=== PATIENT | male | born 1965 | race Caucasian/White ===

== ENCOUNTER 2019-03-09 14:07 | Outpatient (REF) | payer MEDICARE, SELFPAY ==
[2019-03-09 21:44] LABS: HCT 41.7 % (40.0-50.0); HGB 13.7 g/dL (13.5-17.5); Mean Corp. HGB Concentration 32.9 g/dL (32.0-36.0); Mean Corpuscular Volume 88.3 fL (80-95); Mean Platelet Volume 10.1 fL (8.0-11.0); Platelet Count 224 x1000/uL (130-400); RBC 4.72 m/cumm (4.50-6.00); RBC Distribution Width 13.6 % (11.8-14.1); White Blood Cell Count 6.13 k/cumm (4.4-10.8)
[2019-03-09 22:10] LABS: ALT 55 U/L (12-78); AST 31 U/L (15-37); Albumin 3.6 g/dL (3.4-5.0); Alkaline Phosphatase 119 U/L (46-116); Anion Gap 8.8 mmol/L (3-11); BUN 8 mg/dL (7-18); Bilirubin, Total 0.3 mg/dL (0.2-1.0); CO2 27.2 mmol/L (21.0-32.0); CREATININE 0.77 mg/dL (0.70-1.30); Calcium 8.6 mg/dL (8.5-10.1); Calculated LDL 128 mg/dL; Chloride 104 mmol/L (98-107); Cholesterol 227 mg/dL (50-200); Glucose 88 mg/dL (70-100); HDL Cholesterol 40 mg/dL (40-60); Magnesium 1.9 mg/dL (1.8-2.4); Potassium 3.9 mmol/L (3.5-5.1); Sodium 140 mmol/L (136-145); TSH (W/Ref FT4) 1.25 uIU/mL (0.358-3.74); Total Protein 7.2 g/dL (6.4-8.2); Triglyceride 298 mg/dL (30-150)
== END 2019-03-09 14:27 ==
LOC: NCHCN 14:07
PROVIDERS: PCP Specialist/Technologist Athletic Trainer; Visit Provider Specialist/Technologist Athletic Trainer
DX: R73.9 Hyperglycemia, unspecified (principal); E78.5 Hyperlipidemia, unspecified; I42.9 Cardiomyopathy, unspecified
CPT/HCPCS: 80053; 80061; 83721; 85027; 83735; 84443

== ENCOUNTER 2019-04-17 15:49 | Inpatient (IN) | payer MEDICARE, SELFPAY ==
[2019-04-17] VITALS (23 sets, daily range): BP systolic 98–127; BP diastolic 43–85; PULSE 66–81; RESP 13–27; TEMP 36.9–38.1; O2SAT 89–96
--- NOTE | 2019-04-17 16:29 | DI.CT_ITS ---
SYMPTOM/DIAGNOSIS: FEVER, EPIGASTRIC PAIN, RAD TO CHEST CT ANGIOGRAPHY OF THE CHEST, ABDOMEN AND PELVIS: CT angiography was performed with multi slice acquisition and multi planar and 3D reconstruction. The aorta and pulmonary arteries are well opacified with IV contrast. There is no evidence of aortic dissection or pulmonary emboli. The heart size is normal. There is minimal atherosclerotic change in the distal abdominal aorta. The celiac, SMA and SHRUTHI are patent. There is bilateral gynecomastia. No infiltrate, pleural or pericardial effusion is seen. Evaluation of the bowel is limited without oral contrast. There is stranding around the stomach and a fluid collection seen at the inferior body of the stomach along the greater curvature with some surrounding inflammation. The findings could represent a mass, fluid collection or abscess related to a gastric ulcer. There is a metallic density seen in the mid small bowel. The small bowel is unremarkable. There is no free air or free fluid. The bladder and prostate are unremarkable. IMPRESSION: Mass vs fluid collection of the inferior stomach. Metallic foreign body is noted in the small bowel and the findings could be secondary to perforation. Endoscopy is recommended.
--- NOTE | 2019-04-17 16:32 | ED.GENADUL_ITS ---
Discharge Plan Disposition Patient Disposition: [facility] INPATIENT Condition: Stable Discharge Details Chief Complaint: Abd Prob Clinical Impression: Abdominal fluid collection, Fever Admit Date/Time: 04/17/19 18:58 Admit Provider: Wilda Wright Attending Provider: Wilda Wright Primary Care Provider: Stanford Chu ED Provider: Elia Flower Discharge Data Discharge Date/Time-TO BE ENTERED AT DEPARTURE: 04/17/19 19:51 Discharge Physician: Elia Flower Medical Decision Making 1555 -- 54-year-old male with history of depression, COPD who is a poor historian presents with lower abdominal pain with radiation to his chest since yesterday. Temp 100.5 on arrival. He appears nontoxic. His abdomen is obese and distended. He complains of pain in his lower abdomen but is significantly tender in his epigastrium and left upper quadrant and minimally tender in his suprapubic region. No significant right lower quadrant tenderness. He also admits to constipation x2 days. Differential diagnosis free air, cholelithiasis, cholecystitis, appendicitis, AAA rupture, SBO. Will place an IV lactate, blood cultures, routine labs, urinalysis, CT chest abdomen, pelvis. EKG notes a rate of 79, sinus, TWI in aVL, no acute ST ischemic changes. Labs reviewed and note a white blood cell count 11.36. Lactate 1.6. Troponin negative. CTA chest/abd/pelvis notes 2 fluid collections around the stomach, p ossibly consistent with abscesses, but no dissection or aneurysm. 1820 -- Case reviewed with Dr. Wright -will admit patient overnight for IV antibiotics and observation. Would like Zosyn, PPI, n.p.o., fluids and pain control. 1830 -- Patient agreeable with plan for admission. He states he is pain-free at this time. CT abdomen and pelvis with portal flow resulted later which noted a possible 2.6 cm metallic density in the loop of small bowel which may represent an ingested foreign body. Patient already transported to the floor and unable to inquire about this. Dr. Wright was informed of this result. Medical Records Medical records reviewed: Yes I reviewed the patient's medical records. Imaging Data Radiologic Study: Radiologist's impression: Addendum created by Killian Contreras MD on 04/17/2019 6:45:17 PM EDT THIS REPORT CONTAINS FINDINGS THAT MAY BE CRITICAL TO PATIENT CARE. The findings were verbally communicated via telephone conference with elia flower at 6:45 PM EDT on 04/17/2019. The findings were acknowledged and understood. We discussed that the fluid collections adjacent to the stomach may represent abscess Addendum created by Killian Contreras MD on 04/17/2019 6:43:03 PM EDT Addendum: There is a second smaller fluid collection adjacent to the stomach. Please refer to the other report Initial report created on 04/17/2019 6:41:44 PM EDT EXAM: CT Angiography Chest With Contrast EXAM DATE/TIME: 04/17/2019 4:45 PM CLINICAL HISTORY: 54 years old, male; Other: Epigastric radiate to chest; Other: Epigastric pain radiate to chest; Abdominal pain; Patient HX: Fever, epigastric pain, rad to chest; Additional info: R/O aaa/free air/appy/shruthi/sbo TECHNIQUE: Imaging protocol: Computed tomographic angiography images of the chest with intravenous contrast using CT angiography protocol. 3D rendering: MIP reconstructed images were created and reviewed. COMPARISON: CR CHEST 2 VIEWS PA,LAT 06/12/2016 11:29 PM FINDINGS: Pulmonary arteries: No definite pulmonary embolism is seen to the level of the lobar pulmonary arterial branches bilaterally. The heterogeneous or decreased density of some small segmental and subsegmental pulmonary arterial branches may reflect inadequate enhancement, beam hardening, or motion, flow, or partial volume averaging artifact. One or more small segmental or subsegmental pulmonary emboli cannot be excluded. . Aorta: No aneurysm of the aorta. No dissection of the aorta. Lungs: Unremarkable. No consolidation. No masses. Pleural space: Unremarkable. No pneumothorax. No pleural effusion. Heart: Unremarkable. No cardiomegaly. No pericardial effusion. Lymph nodes: Unremarkable. No enlarged lymph nodes. Bones/joints: Mild compression fractures of unknown age in the thoracic spine Soft tissues: Unremarkable. IMPRESSION: 1. No definite pulmonary embolism is seen to the level of the lobar pulmonary arterial branches bilaterally. The heterogeneous or decreased density of some small segmental and subsegmental pulmonary arterial branches may reflect inadequate enhancement, beam hardening, or motion, flow, or partial volume averaging artifact. One or more small segmental or subsegmental pulmonary emboli cannot be excluded. . 2. No aneurysm of the aorta. 3. No dissection of the aorta. CT Angiography Abdomen and Pelvis With Contrast EXAM DATE/TIME: 04/17/2019 4:45 PM CLINICAL HISTORY: 54 years old, male; Other: Epigastric radiate to chest; Other: Epigastric pain radiate to chest; Abdominal pain; Patient HX: Fever, epigastric pain, rad to chest; Additional info: R/O aaa/free air/appy/shruthi/sbo TECHNIQUE: Imaging protocol: Computed tomographic angiography images of the abdomen and pelvis with intravenous contrast material. 3D rendering: MIP reconstructed images were created and reviewed. COMPARISON: CR CHEST 2 VIEWS PA,LAT 06/12/2016 11:29 PM FINDINGS: VASCULATURE: Aorta: No aneurysm of the aorta. No dissection of the aorta. Celiac trunk and mesenteric arteries: No occlusion or significant stenosis. Renal arteries: No occlusion or significant stenosis. Right iliac arteries: No occlusion or significant stenosis. Left iliac arteries: No occlusion or significant stenosis. ABDOMEN: Liver: No mass. Gallbladder and bile ducts: Unremarkable. No calcified stones. No ductal dilation. Pancreas: Unremarkable. No mass. No ductal dilation. Spleen: Unremarkable. No splenomegaly. Adrenals: Unremarkable. No mass. Kidneys and ureters: Unremarkable. No solid mass. No hydronephrosis. Stomach and bowel: 4.9 x 3 cm low attenuation mass along the inferior aspect of the stomach (10:39.). There are inflammatory changes adjacent to the stomach. Appendix: Normal appendix PELVIS: Bladder: Unremarkable. No mass. Reproductive: Unremarkable as visualized. ABDOMEN and PELVIS: Intraperitoneal space: Unremarkable. No free air. No significant fluid collection. Bones/joints: No acute fracture. No dislocation. Soft tissues: Unremarkable. Lymph nodes: Unremarkable. No enlarged lymph nodes. Other findings: . . IMPRESSION: 1. No aneurysm of the aorta. 2. No dissection of the aorta. 3. 4.9 x 3 cm low attenuation mass along the inferior aspect of the stomach (10:39.). There are inflammatory changes adjacent to the stomach. Differential includes abscess, hematoma, seroma, cyst. CT Abdomen and Pelvis With Contrast EXAM DATE/TIME: 04/17/2019 4:46 PM CLINICAL HISTORY: 54 years old, male; Abdominal pain; Patient HX: Epigastric pain; Additional info: R/O free air, appy/shruthi/sbo TECHNIQUE: Imaging protocol: Computed tomography images of the abdomen and pelvis with intravenous contrast. COMPARISON: No relevant prior studies available. FINDINGS: Liver: hepatomegaly 23 cm No mass. Gallbladder and bile ducts: Normal. No calcified stones. No ductal dilation. Pancreas: Normal. No ductal dilation. Spleen: Normal. No splenomegaly. Adrenals: Normal. No mass. Kidneys and ureters: Normal. No hydronephrosis. Stomach and bowel: There are 2 low attenuation masses adjacent to the stomach 4.4 x 3.6 cm and 4 x 1.8 cm. There may be a bubble of air in the smaller fluid collection (12:30) There are adjacent inflammatory changes. This could represent abscess, possibly from perforated gastric ulcer.. Differential includes hematoma and seroma 2.6 cm Metallic density in a loop of the small bowel. Unknown etiology. (12:57-63). It may represent ingested foreign body Appendix: No evidence of appendicitis. Intraperitoneal space: Normal. No free air. No significant fluid collection. Vasculature: Normal. No abdominal aortic aneurysm. Lymph nodes: Normal. No enlarged lymph nodes. Bladder: Unremarkable as visualized. Reproductive: Unremarkable as visualized. Bones/joints: There may be a chronic compression fractures of the thoracic spine No acute fracture. No dislocation. Soft tissues: Unremarkable THIS REPORT CONTAINS FINDINGS THAT MAY BE CRITICAL TO PATIENT CARE. The findings were verbally communicated via telephone conference with elia flower at 6:44 PM EDT on 04/17/2019. The findings were acknowledged and understood. IMPRESSION: There are 2 low attenuation masses adjacent to the stomach 4.4 x 3.6 cm and 4 x 1.8 cm. There may be a bubble of air in the smaller fluid collection (12:30) There are adjacent inflammatory changes. This could represent abscess, possibly from perforated gastric ulcer. Differential includes hematoma and seroma 2.6 cm Metallic density in a loop of the small bowel. Unknown etiology. (12:57-63). It may represent ingested foreign body Lab Data Lab results reviewed: Yes I reviewed the patient's lab results. 04/17/19 17:03 Blood Blood Culture - Pending 04/17/19 16:55 Blood Blood Culture - Pending Laboratory Tests Range/Units 04/17/19 04/17/19 04/17/19 16:40 16:40 16:55 WBC (4.4-10.8) k/cumm 11.36 H RBC (4.50-6.00) m/cumm 4.60 Hgb (13.5-17.5) g/dL 13.5 Hct (40.0-50.0) % 40.6 MCV (80-95) fL 88.3 MCH (27.0-33.0) pg 29.3 MCHC (32.0-36.0) g/dL 33.3 RDW (11.8-14.1) % 13.8 Plt Count (130-400) x1000/uL 211 MPV (8.0-11.0) fL 9.2 Immature Gran % 0.2 Neutrophils % 80.4 Lymphocytes % 11.5 Monocytes % 7.4 Eosinophils % 0.4 Basophils % 0.1 Absolute Neutrophils (1.2-6.7) k/cumm 9.13 H Absolute Lymphocytes (1.2-3.4) k/cumm 1.31 Absolute Monocytes (0.11-0.7) k/cumm 0.84 H Absolute Eosinophils (0.0-0.7) k/cumm 0.05 Absolute Basophils (0.0-0.2) k/cumm 0.01 Sodium (136-145) mmol/L 137 Potassium (3.5-5.1) mmol/L 3.5 Chloride (98-107) mmol/L 101 Carbon Dioxide (21.0-32.0) mmol/L 26.1 Anion Gap (3-11) mmol/L 9.9 BUN (7-18) mg/dL 11 Creatinine (0.70-1.30) mg/dL 0.97 Estimated GFR/1.73 m2 (mL/min/1.73m2) >= 60.00 Glucose (70-100) mg/dL 155 H Lactate (0.6-1.4) mmol/L 1.6 H Calcium (8.5-10.1) mg/dL 8.7 Magnesium (1.8-2.4) mg/dL 1.7 L Total Bilirubin (0.2-1.0) mg/dL 0.7 AST (15-37) U/L 18 ALT (16-63) U/L 41 Alkaline Phosphatase (46-116) U/L 104 Troponin I (0.00-0.06) ng/mL < 0.05 Total Protein (6.4-8.2) g/dL 7.5 Albumin (3.4-5.0) g/dL 3.2 L Lipase (73-393) U/L 76 ECG Data Attestation: I personally reviewed and interpreted this ECG (s) as follows: Interpretation: Rate of 79, sinus, T wave inversion in aVL but no acute ST elevation or depression. IL 144. QTc 463. QRS 96. HPI General Mode of arrival: ambulatory . Date/Time Provider Initiated Documentation: 04/17/19 15:59 . Limitations to Documentation: no limitations . Information obtained by: patient . HPI Narrative: Patient is a 54-year-old male with a history of depression and COPD presents with intermittent sharp lower abdominal pain since yesterday. States the pain is intermittently radiating to his chest. States the pain is currently 4/10. He states the pain is better when laying on his right side and worse when laying flat. He does admit to intermittent chills but was unaware that he had a fever. He has not taken any medication for his symptoms. He states his last bowel movement was 2 days ago and denies any bleeding. He denies any shortness of breath, urinary symptoms, nausea, vomiting. Related Data Home Medications Medication Instructions Recorded Confirmed fluoxetine 60 mg PO DAILY 04/26/14 04/17/19 risperidone 2 mg PO DAILY 04/26/14 04/17/19 tramadol 50 mg PO TID PRN PRN #14 tablet 03/05/16 04/17/19 melatonin 5 mg PO HS 04/17/19 04/17/19 metoprolol tartrate 25 mg PO DAILY 04/17/19 04/17/19 mirtazapine 7.5 mg PO DAILY 04/17/19 04/17/19 simvastatin 10 mg PO DAILY 04/17/19 04/17/19 Previous Rx's Medication Instructions Recorded tramadol 50 mg PO TID PRN PRN #14 tablet 03/05/16 Allergies Allergy/AdvReac Type Severity Reaction Status Date / Time No Known Allergies Allergy Unverified 04/17/19 15:47 General Stated Complaint: Abd Prob SHAY: 3 Review of Systems Review of Systems All systems reviewed & are unremarkable except as noted in HPI and below Constitutional Reports as per HPI, Denies chills and Denies fever(s) Eyes Denies blurry vision ENT Denies dizziness, Denies sore throat and Denies throat swelling Cardiovascular Denies chest pain and Denies dyspnea Respiratory Denies cough and Denies dyspnea Gastrointestinal Reports abdominal pain, Reports constipation, Denies diarrhea and Denies vomiting Genitourinary Denies hematuria and Denies dysuria Musculoskeletal Denies back pain and Denies numbness Integumentary/Breasts Denies lesions and Denies rash Neurologic Denies dizziness, Denies focal weakness and Denies numbness Allergic/Immunologic Denies throat swelling [facility] Medical History COPD (chronic obstructive pulmonary disease) (Chronic) Depression (Chronic) Surgical History Colonoscopy - MAC (12/23/16) No significant past surgical history (Acute) Social History Smoking/Tobacco Use Status: Current every day Alcohol Intake: never Drug use: Never Do you feel safe at home: Yes Do you feel safe in your relationship?: Yes Exam Const General: cooperative, healthy appearing and no acute distress HENMT Head: normal to inspection Face and sinus: normal facial exam Eyes General: appearance normal, both eyes and all related structures EOM: EOM intact bilaterally Neck Neck: normal visual inspection and No submandibular swelling Lymphatic: no lymphadenopathy noted Chest Chest: normal inspection of the chest and no tenderness Resp Effort & Inspection: normal respiratory effort and able to speak in complete sentences Auscultation: clear to auscultation bilaterally Cardio Rate: regular rate Rhythm: regular rhythm GI Inspection: normal to inspection Palpation: soft, not firm, not rigid and tender in the epigastrum (significantly tender) and in the LUQ (Significantly tender) Auscultation: normal bowel sounds Male General Exam: Yes normal external exam Back/Spine/Pelvis Pelvis: no pain with anterior-posterior compression Skin General skin exam: no rashes or lesions noted Neuro General: alert, awake and oriented x3 Cognition: normal cognition Speech: speech normal Motor: muscle tone normal throughout Sensory Exam: no sensory deficits noted Extrem General: normal to inspection, full ROM, normal capillary refill, no calf tenderness bilaterally and no edema Psych Appearance: grossly normal Mental Status: mental status grossly normal Speech and Movement: speech and movement normal Affect: normal affect Course Vital Signs Temperature 100.5 F H 04/17/19 15:38 Pulse 81 04/17/19 15:38 Respiratory Rate 18 04/17/19 15:38 Blood Pressure 122/85 04/17/19 15:38 Pulse Oximetry 96 04/17/19 15:38 Temperature 100.5 F H 04/17/19 15:38 Temperature Source Skin 04/17/19 15:38 Pulse 81 04/17/19 15:38 Respiratory Rate 18 04/17/19 15:38 Respiratory Effort 04/17/19 15:48 Blood Pressure 122/85 04/17/19 15:38 Pulse Oximetry 96 04/17/19 15:38 Oxygen Delivery Method Room Air 04/17/19 15:38 Oxygen Flow Rate 0 04/17/19 15:38 Pain Level 3 04/17/19 15:38 Comment 04/17/19 15:38
[2019-04-17 16:47] LABS: Abs Immature Grans 0.02 k/cumm (0.0-0.09); Absolute Basophil Count 0.01 k/cumm (0.0-0.2); Absolute Eosinophil Count 0.05 k/cumm (0.0-0.7); Absolute Lymphocyte Count 1.31 k/cumm (1.2-3.4); Absolute Monocyte Count 0.84 k/cumm (0.11-0.7); Absolute Neutrophil Count 9.13 k/cumm (1.2-6.7); Basophils % 0.1; Eosinophils % 0.4; HCT 40.6 % (40.0-50.0); HGB 13.5 g/dL (13.5-17.5); Immature Grans % 0.2; Lymphocytes % 11.5; Mean Corp. HGB Concentration 33.3 g/dL (32.0-36.0); Mean Corpuscular Hemoglobin 29.3 pg (27.0-33.0); Mean Corpuscular Volume 88.3 fL (80-95); Mean Platelet Volume 9.2 fL (8.0-11.0); Monocytes % 7.4; Neutrophils % 80.4; Platelet Count 211 x1000/uL (130-400); RBC Distribution Width 13.8 % (11.8-14.1); White Blood Cell Count 11.36 k/cumm (4.4-10.8)
[2019-04-17] MEDS: Acetaminophen 500 MG TAB 1000 MG PO (16:56)
[2019-04-17] MEDS: Normal Saline 1,000 ML 1000 ML IV (16:56)
[2019-04-17 17:01] LABS: ALT 41 U/L (16-63); AST 18 U/L (15-37); Albumin 3.2 g/dL (3.4-5.0); Alkaline Phosphatase 104 U/L (46-116); Anion Gap 9.9 mmol/L (3-11); BUN 11 mg/dL (7-18); Bilirubin, Total 0.7 mg/dL (0.2-1.0); CO2 26.1 mmol/L (21.0-32.0); CREATININE 0.97 mg/dL (0.70-1.30); Calcium 8.7 mg/dL (8.5-10.1); Chloride 101 mmol/L (98-107); Glucose 155 mg/dL (70-100); Lipase 76 U/L (73-393); Magnesium 1.7 mg/dL (1.8-2.4); Potassium 3.5 mmol/L (3.5-5.1); Sodium 137 mmol/L (136-145); Total Protein 7.5 g/dL (6.4-8.2)
[2019-04-17 17:02] LABS: Troponin I < 0.05 ng/mL (0.00-0.06)
[2019-04-17 17:17] LABS: Lactate 1.6 mmol/L (0.6-1.4)
--- NOTE | 2019-04-17 17:40 | DI.CT_ITS ---
SYMPTOM/DIAGNOSIS: R/O FREE AIR, APPY/BRENDAN/SBO CT ABDOMEN AND PELVIS: Comparison is made with CTA chest, abdomen and pelvis performed earlier the same day. No oral contrast was administered. There is again noted to be inflammation around the stomach and a fluid collection seen at the inferior aspect of the stomach. A second smaller fluid collection is noted. There is an apparent wall thickening. The findings could be secondary to a mass with perforation or possibly gastric ulcer. A linear metallic foreign body is seen in the mid to distal small bowel. There is no free air or free fluid. There is no small bowel or colon dilatation. The kidneys, spleen, adrenals and pancreas are unremarkable. The liver is mildly enlarged and shows fatty infiltration. The gallbladder has a normal appearance. There is no biliary dilatation. No adenopathy is seen. There are small bilateral fatty containing inguinal hernias. IMPRESSION: Wall thickening of the stomach with fluid collections and inflammation in the surrounding fat. A foreign body is noted in the small bowel. The findings could be secondary to perforation by the foreign body. A mass with perforation could not be excluded. Endoscopy is recommended for further evaluation.
[2019-04-17] MEDS: Omnipaque 350 MG/ML 100 ML BTL IJ (17:58)
--- NOTE | 2019-04-17 18:41 | DI.VRAD_ITS ---
Addendum created by Killian Contreras MD on 04/17/2019 6:45:17 PM EDT THIS REPORT CONTAINS FINDINGS THAT MAY BE CRITICAL TO PATIENT CARE. The findings were verbally communicated via telephone conference with elia rascon at 6:45 PM EDT on 04/17/2019. The findings were acknowledged and understood. We discussed that the fluid collections adjacent to the stomach may represent abscess Addendum created by Killian Contreras MD on 04/17/2019 6:43:03 PM EDT Addendum: There is a second smaller fluid collection adjacent to the stomach. Please refer to the other report Initial report created on 04/17/2019 6:41:44 PM EDT EXAM: CT Angiography Chest With Contrast EXAM DATE/TIME: 04/17/2019 4:45 PM CLINICAL HISTORY: 54 years old, male; Other: Epigastric radiate to chest; Other: Epigastric pain radiate to chest; Abdominal pain; Patient HX: Fever, epigastric pain, rad to chest; Additional info: R/O aaa/free air/appy/shruthi/sbo TECHNIQUE: Imaging protocol: Computed tomographic angiography images of the chest with intravenous contrast using CT angiography protocol. 3D rendering: MIP reconstructed images were created and reviewed. COMPARISON: CR CHEST 2 VIEWS PA,LAT 06/12/2016 11:29 PM FINDINGS: Pulmonary arteries: No definite pulmonary embolism is seen to the level of the lobar pulmonary arterial branches bilaterally. The heterogeneous or decreased density of some small segmental and subsegmental pulmonary arterial branches may reflect inadequate enhancement, beam hardening, or motion, flow, or partial volume averaging artifact. One or more small segmental or subsegmental pulmonary emboli cannot be excluded. . Aorta: No aneurysm of the aorta. No dissection of the aorta. Lungs: Unremarkable. No consolidation. No masses. Pleural space: Unremarkable. No pneumothorax. No pleural effusion. Heart: Unremarkable. No cardiomegaly. No pericardial effusion. Lymph nodes: Unremarkable. No enlarged lymph nodes. Bones/joints: Mild compression fractures of unknown age in the thoracic spine Soft tissues: Unremarkable. IMPRESSION: 1. No definite pulmonary embolism is seen to the level of the lobar pulmonary arterial branches bilaterally. The heterogeneous or decreased density of some small segmental and subsegmental pulmonary arterial branches may reflect inadequate enhancement, beam hardening, or motion, flow, or partial volume averaging artifact. One or more small segmental or subsegmental pulmonary emboli cannot be excluded. . 2. No aneurysm of the aorta. 3. No dissection of the aorta. EXAM: CT Angiography Abdomen and Pelvis With Contrast EXAM DATE/TIME: 04/17/2019 4:45 PM CLINICAL HISTORY: 54 years old, male; Other: Epigastric radiate to chest; Other: Epigastric pain radiate to chest; Abdominal pain; Patient HX: Fever, epigastric pain, rad to chest; Additional info: R/O aaa/free air/appy/shruthi/sbo TECHNIQUE: Imaging protocol: Computed tomographic angiography images of the abdomen and pelvis with intravenous contrast material. 3D rendering: MIP reconstructed images were created and reviewed. COMPARISON: CR CHEST 2 VIEWS PA,LAT 06/12/2016 11:29 PM FINDINGS: VASCULATURE: Aorta: No aneurysm of the aorta. No dissection of the aorta. Celiac trunk and mesenteric arteries: No occlusion or significant stenosis. Renal arteries: No occlusion or significant stenosis. Right iliac arteries: No occlusion or significant stenosis. Left iliac arteries: No occlusion or significant stenosis. ABDOMEN: Liver: No mass. Gallbladder and bile ducts: Unremarkable. No calcified stones. No ductal dilation. Pancreas: Unremarkable. No mass. No ductal dilation. Spleen: Unremarkable. No splenomegaly. Adrenals: Unremarkable. No mass. Kidneys and ureters: Unremarkable. No solid mass. No hydronephrosis. Stomach and bowel: 4.9 x 3 cm low attenuation mass along the inferior aspect of the stomach (10:39.). There are inflammatory changes adjacent to the stomach. Appendix: Normal appendix PELVIS: Bladder: Unremarkable. No mass. Reproductive: Unremarkable as visualized. ABDOMEN and PELVIS: Intraperitoneal space: Unremarkable. No free air. No significant fluid collection. Bones/joints: No acute fracture. No dislocation. Soft tissues: Unremarkable. Lymph nodes: Unremarkable. No enlarged lymph nodes. Other findings: . . IMPRESSION: 1. No aneurysm of the aorta. 2. No dissection of the aorta. 3. 4.9 x 3 cm low attenuation mass along the inferior aspect of the stomach (10:39.). There are inflammatory changes adjacent to the stomach. Differential includes abscess, hematoma, seroma, cyst. Dictated and Authenticated by: Killian Contreras MD. Ordering:JOSE ANTONIO Lynch MD
--- NOTE | 2019-04-17 18:48 | DI.VRAD_ITS ---
EXAM: CT Abdomen and Pelvis With Contrast EXAM DATE/TIME: 04/17/2019 4:46 PM CLINICAL HISTORY: 54 years old, male; Abdominal pain; Patient HX: Epigastric pain; Additional info: R/O free air, appy/shruthi/sbo TECHNIQUE: Imaging protocol: Computed tomography images of the abdomen and pelvis with intravenous contrast. COMPARISON: No relevant prior studies available. FINDINGS: Liver: hepatomegaly 23 cm No mass. Gallbladder and bile ducts: Normal. No calcified stones. No ductal dilation. Pancreas: Normal. No ductal dilation. Spleen: Normal. No splenomegaly. Adrenals: Normal. No mass. Kidneys and ureters: Normal. No hydronephrosis. Stomach and bowel: There are 2 low attenuation masses adjacent to the stomach 4.4 x 3.6 cm and 4 x 1.8 cm. There may be a bubble of air in the smaller fluid collection (12:30) There are adjacent inflammatory changes. This could represent abscess, possibly from perforated gastric ulcer.. Differential includes hematoma and seroma 2.6 cm Metallic density in a loop of the small bowel. Unknown etiology. (12:57-63). It may represent ingested foreign body Appendix: No evidence of appendicitis. Intraperitoneal space: Normal. No free air. No significant fluid collection. Vasculature: Normal. No abdominal aortic aneurysm. Lymph nodes: Normal. No enlarged lymph nodes. Bladder: Unremarkable as visualized. Reproductive: Unremarkable as visualized. Bones/joints: There may be a chronic compression fractures of the thoracic spine No acute fracture. No dislocation. Soft tissues: Unremarkable THIS REPORT CONTAINS FINDINGS THAT MAY BE CRITICAL TO PATIENT CARE. The findings were verbally communicated via telephone conference with elia rascon at 6:44 PM EDT on 04/17/2019. The findings were acknowledged and understood. IMPRESSION: There are 2 low attenuation masses adjacent to the stomach 4.4 x 3.6 cm and 4 x 1.8 cm. There may be a bubble of air in the smaller fluid collection (12:30) There are adjacent inflammatory changes. This could represent abscess, possibly from perforated gastric ulcer. Differential includes hematoma and seroma 2.6 cm Metallic density in a loop of the small bowel. Unknown etiology. (12:57-63). It may represent ingested foreign body Dictated and Authenticated by: Killian Contreras MD. Ordering:JOSE ANTONIO Lynch MD
[2019-04-17] MEDS: PIPERACILLIN/TAZO 3.375 GM in Normal Saline 50 ML IVPB (19:32)
[2019-04-17] MEDS: Pantoprazole 40 MG VIAL IVP (19:32)
[2019-04-17] MEDS: Normal Saline 1,000 ML 125 ML IV (20:25)
[2019-04-17 20:42] LABS: Bilirubin Negative (Negative); Blood Negative (Negative); Clarity Clear (Clear); Glucose Negative (Negative); Ketones Negative (Negative); Leukocyte Esterase Negative (Negative); Nitrite Negative (Negative); pH 7.5 (5-8)
[2019-04-17 20:56] LABS: Bacteria Negative HPF (Negative); Epithelial Cells Rare HPF (Negative); RBC Negative (0-2); WBC 0-2 HPF (0-5)
[2019-04-17 20:57] LABS: C & S Indicated? No; Casts Negative LPF (Negative); Crystals Negative HPF (Negative); Mucus Negative (Negative)
--- NOTE | 2019-04-17 21:10 | NUR.NOTE ---
Nursing Note: 2000H Patient arrived from ED admitted to Med/Surg Rm 207. Complains of abdominal pain. Ambulated to the bed safely. A&Ox3 VSS. Oriented to call alejo and surroundings. Call alejo in place.
[2019-04-18] VITALS (19 sets, daily range): BP systolic 119–144; BP diastolic 68–78; PULSE 64–90; RESP 3–28; TEMP 36.7–38.4; O2SAT 93–97
[2019-04-18] MEDS: PIPERACILLIN/TAZO 3.375 GM in Normal Saline 50 ML IVPB ×4 (02:28→19:43)
[2019-04-18] MEDS: Normal Saline 1,000 ML 125 ML IV ×2 (04:39→12:59)
[2019-04-18 06:50] LABS: Abs Immature Grans 0.02 k/cumm (0.0-0.09); Absolute Eosinophil Count 0.04 k/cumm (0.0-0.7); Absolute Lymphocyte Count 1.04 k/cumm (1.2-3.4); Absolute Monocyte Count 1.02 k/cumm (0.11-0.7); Basophils % 0.2; Eosinophils % 0.3; HGB 13.3 g/dL (13.5-17.5); Immature Grans % 0.2; Lymphocytes % 7.9; Mean Corp. HGB Concentration 32.4 g/dL (32.0-36.0); Mean Corpuscular Hemoglobin 29.2 pg (27.0-33.0); Mean Corpuscular Volume 89.9 fL (80-95); Mean Platelet Volume 9.5 fL (8.0-11.0); Monocytes % 7.8; Neutrophils % 83.6; Platelet Count 220 x1000/uL (130-400); RBC 4.56 m/cumm (4.50-6.00); RBC Distribution Width 14.3 % (11.8-14.1); White Blood Cell Count 13.12 k/cumm (4.4-10.8)
[2019-04-18 06:57] LABS: Absolute Basophil Count 0.03 k/cumm (0.0-0.2); Absolute Neutrophil Count 10.97 k/cumm (1.2-6.7)
[2019-04-18 07:03] LABS: Anion Gap 8.7 mmol/L (3-11); BUN 12 mg/dL (7-18); CO2 27.3 mmol/L (21.0-32.0); CREATININE 0.94 mg/dL (0.70-1.30); Calcium 8.5 mg/dL (8.5-10.1); Chloride 103 mmol/L (98-107); Glucose 150 mg/dL (70-100); Lipase 53 U/L (73-393); Potassium 3.7 mmol/L (3.5-5.1); Sodium 139 mmol/L (136-145)
--- NOTE | 2019-04-18 07:24 | W.PM.PROGNOT ---
Date of Service Date of service: 04/18/19 Time of Service: 07:24 Assessment and Plan (1) Abdominal pain: Current visit: Yes Status: Acute Continue NPO, IV antibiotics and work on pain control. Mr. Smith had audibles wheezes, which he reports is his normal. ? if this was due to his position lying on his side. He did not want to reposition. Subjective Interval history since last seen: My stomach pain comes and goes. This has been happening since Wednesday. When will I be able to eat. Denies passing flatus. No BM. Exam Const General: cooperative and acute distress mild Orientation: alert and oriented x3 Resp Effort & Inspection: audible wheezes, no cough and labored GI Inspection: normal to inspection and obesity Palpation: firm, guarding and tender Objective Objective Clinical Data: Abnormal lab results 04/17/19 04/17/19 04/17/19 Range/Units 16:40 16:40 16:55 WBC 11.36 H (4.4-10.8) k/cumm Hgb (13.5-17.5) g/dL RDW (11.8-14.1) % Absolute Neutrophils 9.13 H (1.2-6.7) k/cumm Absolute Lymphocytes (1.2-3.4) k/cumm Absolute Monocytes 0.84 H (0.11-0.7) k/cumm Glucose 155 H (70-100) mg/dL Lactate 1.6 H (0.6-1.4) mmol/L Magnesium 1.7 L (1.8-2.4) mg/dL Albumin 3.2 L (3.4-5.0) g/dL Lipase (73-393) U/L Urine Protein (Negative) mg/dL Urine Urobilinogen (Up TO 0.2) EU/dL 04/17/19 04/18/19 04/18/19 Range/Units 20:34 06:10 06:10 WBC 13.12 H (4.4-10.8) k/cumm Hgb 13.3 L (13.5-17.5) g/dL RDW 14.3 H (11.8-14.1) % Absolute Neutrophils 10.97 H (1.2-6.7) k/cumm Absolute Lymphocytes 1.04 L (1.2-3.4) k/cumm Absolute Monocytes 1.02 H (0.11-0.7) k/cumm Glucose 150 H (70-100) mg/dL Lactate (0.6-1.4) mmol/L Magnesium (1.8-2.4) mg/dL Albumin (3.4-5.0) g/dL Lipase 53 L (73-393) U/L Urine Protein 30 H (Negative) mg/dL Urine Urobilinogen 4.0 H (Up TO 0.2) EU/dL Vital Signs Temperature 37.5 C 04/18/19 04:05 Temperature Source Tympanic 04/18/19 04:05 Pulse 75 04/18/19 04:05 Pulse Rhythm Regular 04/17/19 20:01 Pulse 67 04/17/19 19:21 Respiratory Rate 24 04/18/19 04:05 Respiratory Effort 04/17/19 20:01 Respiratory Depth Shallow 04/17/19 20:01 Respiratory Pattern Tachypnea 04/17/19 20:01 Blood Pressure 120/72 04/18/19 04:05 Blood Pressure Mean 58 04/17/19 19:20 Pulse Oximetry 94 L 04/18/19 04:05 Oxygen Delivery Method Room Air 04/18/19 04:05 Oxygen Flow Rate 0 04/18/19 04:05 Pain Level 10 04/18/19 06:02 Comment 04/17/19 15:38 Intake & Output 04/17/19 04/18/19 04/18/19 18:59 06:59 18:59 Intake Total 2099 Output Total 350 / 350 Balance 1750 / 1750 Weight 135.171 kg 135.171 kg Intake: IV 2099 Output: Urine 350 / 350 Other: Urine Color Light Little Urine Appearance Clear Comment Patient voided in the bathroom independently. Voiding Methods Toilet Laboratory Results WBC 13.12 k/cumm (4.4-10.8) H 04/18/19 06:10 RBC 4.56 m/cumm (4.50-6.00) 04/18/19 06:10 Hgb 13.3 g/dL (13.5-17.5) L 04/18/19 06:10 Hct 41.0 % (40.0-50.0) 04/18/19 06:10 MCV 89.9 fL (80-95) 04/18/19 06:10 MCH 29.2 pg (27.0-33.0) 04/18/19 06:10 MCHC 32.4 g/dL (32.0-36.0) 04/18/19 06:10 RDW 14.3 % (11.8-14.1) H 04/18/19 06:10 Plt Count 220 x1000/uL (130-400) 04/18/19 06:10 MPV 9.5 fL (8.0-11.0) 04/18/19 06:10 Immature Gran % 0.2 04/18/19 06:10 83.6 04/18/19 06:10 7.9 04/18/19 06:10 7.8 04/18/19 06:10 0.3 04/18/19 06:10 0.2 04/18/19 06:10 Absolute Neutrophils 10.97 k/cumm (1.2-6.7) H 04/18/19 06:10 Absolute Lymphocytes 1.04 k/cumm (1.2-3.4) L 04/18/19 06:10 Absolute Monocytes 1.02 k/cumm (0.11-0.7) H 04/18/19 06:10 Absolute Eosinophils 0.04 k/cumm (0.0-0.7) 04/18/19 06:10 Absolute Basophils 0.03 k/cumm (0.0-0.2) 04/18/19 06:10 Sodium 139 mmol/L (136-145) 04/18/19 06:10 Potassium 3.7 mmol/L (3.5-5.1) 04/18/19 06:10 Chloride 103 mmol/L (98-107) 04/18/19 06:10 Carbon Dioxide 27.3 mmol/L (21.0-32.0) 04/18/19 06:10 8.7 mmol/L (3-11) 04/18/19 06:10 BUN 12 mg/dL (7-18) 04/18/19 06:10 0.94 mg/dL (0.70-1.30) 04/18/19 06:10 >= 60.00 (mL/min/1.73m2) 04/18/19 06:10 Glucose 150 mg/dL (70-100) H 04/18/19 06:10 1.6 mmol/L (0.6-1.4) H 04/17/19 16:55 Calcium 8.5 mg/dL (8.5-10.1) 04/18/19 06:10 Magnesium 1.7 mg/dL (1.8-2.4) L 04/17/19 16:40 0.7 mg/dL (0.2-1.0) 04/17/19 16:40 AST 18 U/L (15-37) 04/17/19 16:40 ALT 41 U/L (16-63) 04/17/19 16:40 104 U/L (46-116) 04/17/19 16:40 < 0.05 ng/mL (0.00-0.06) 04/17/19 16:40 7.5 g/dL (6.4-8.2) 04/17/19 16:40 3.2 g/dL (3.4-5.0) L 04/17/19 16:40 53 U/L (73-393) L 04/18/19 06:10 Little (Yellow) 04/17/19 20:34 Clear (Clear) 04/17/19 20:34 7.5 (5-8) 04/17/19 20:34 Ur Specific [place] 1.010 (1.005-1.025) 04/17/19 20:34 30 mg/dL (Negative) H 04/17/19 20:34 Negative mg/dL (Negative) 04/17/19 20:34 Negative (Negative) 04/17/19 20:34 Negative (Negative) 04/17/19 20:34 Negative (Negative) 04/17/19 20:34 4.0 EU/dL (Up TO 0.2) H 04/17/19 20:34 Ur Leukocyte Esterase Negative (Negative) 04/17/19 20:34 Negative (0-2) 04/17/19 20:34 0-2 HPF (0-5) 04/17/19 20:34 Ur Epithelial Cells Rare HPF (Negative) 04/17/19 20:34 Negative HPF (Negative) 04/17/19 20:34 Negative HPF (Negative) 04/17/19 20:34 Negative LPF (Negative) 04/17/19 20:34 Negative (Negative) 04/17/19 20:34 Rare spermatozoa (Negative) 04/17/19 20:34 Ur Culture Indicated? No 04/17/19 20:34 Negative mg/dL (Negative) 04/17/19 20:34
--- NOTE | 2019-04-18 07:56 | DI.RAD_ITS ---
SYMPTOM/DIAGNOSIS: EPIGASTRIC PAIN PORTABLE CHEST: Comparison is made with 12 June 2016. The lungs are not well inflated and there is suboptimal penetration. The heart size is within normal limits for projection. The lungs are grossly clear. IMPRESSION: Negative portable chest.
[2019-04-18] MEDS: Albuterol 2.5 MG/3 ML INH SOLN VIAL UPD ×3 (08:09→14:33)
[2019-04-18] MEDS: Acetaminophen 325 MG TAB 650 MG PO ×2 (08:42→19:40)
[2019-04-18] MEDS: FLUoxetine 20 MG CAP 60 MG PO (08:42)
[2019-04-18] MEDS: risperiDONE 1 MG TAB 2 MG PO (08:43)
[2019-04-18] MEDS: Mirtazapine 15 MG TAB 7.5 MG PO (08:43)
[2019-04-18] MEDS: Metoprolol 25 MG TAB PO (08:44)
--- NOTE | 2019-04-18 09:21 | W.PM.HP.N ---
Date of service: 04/18/19 Time of Service: 09:21 Assessment and Plan (1) Epigastric pain: Current visit: Yes Status: Acute The patient has two small collections near his stomach, which may be abscess. It is unusual to have a perforated ulcer present in this manner. He does smoke but does not have other risk factors for PUD. He has been started on a PPI. He denies ingestion of a foreign body but does not have an explanation for the object seen in his small bowel. It is possible this is the cause of a gastric perforation or may be incidental. He is currently on antibiotics. At this point he does not have peritonitis or evidence of free air on plain films this morning. Will continue present management. He will need an EGD in the future, but I am reluctant to proceed with this in the short term due to concerns about insufflating a sealed off perforation. History of Present Illness Narrative: This patient presented yesterday with complaints of central/epigastric pain for about a day. He had some mild nausea but no vomiting. He also has a fever. He had a CT scan of the abdomen and pelvis performed which showed 2 fluid collections near the stomach without free air present. The patient denies previous peptic ulcer disease. He uses ibuprofen every few weeks for headaches. He has noted no bloody or black stools. No change in bowel habits. He does not drink alcohol. He does not recall ingesting a foreign body or any fish or chicken bones. He was noted to have a possible metallic body in the small intestine and is not aware of having swallowed anything. He did not take any medications such as Pepto-Bismol. In general his weight has been stable or slightly increased. He was eating normally up to this point. Review of Systems Review of Systems All systems reviewed & are unremarkable except as noted in HPI and below Constitutional Denies fatigue and Denies headache(s) Eyes Denies change in vision ENT Denies headache(s) and Denies neck mass Cardiovascular Denies chest pain, Denies edema and Denies palpitations Respiratory Reports cough and Reports wheezing Gastrointestinal Denies hematochezia and Denies change in bowel habits Genitourinary Denies dysuria Musculoskeletal Denies joint swelling Integumentary/Breasts Denies new lesions and Denies rash Neurologic Denies confusion, Denies headache(s) and Denies focal weakness Psychiatric Reports system reviewed and no additional complaints, except as docu and Denies confusion Endocrine Denies fatigue and Denies palpitations Hematologic/Lymphatic Denies easy bleeding and Denies lymphadenopathy Allergic/Immunologic Reports wheezing [facility] Medical History COPD (chronic obstructive pulmonary disease) (Chronic) Depression (Chronic) Surgical History Colonoscopy - MAC (12/23/16) No significant past surgical history (Acute) Social History Smoking/Tobacco Use Status: Current every day Alcohol Intake: never Drug use: Never Do you feel safe at home: Yes Do you feel safe in your relationship?: Yes Meds Home Medications Medication Instructions Recorded Confirmed Type fluoxetine 60 mg PO DAILY 04/26/14 04/17/19 History risperidone 2 mg PO DAILY 04/26/14 04/17/19 History tramadol 50 mg PO TID PRN PRN #14 tablet 03/05/16 04/17/19 Rx melatonin 5 mg PO HS 04/17/19 04/17/19 History metoprolol tartrate 25 mg PO DAILY 04/17/19 04/17/19 History mirtazapine 7.5 mg PO DAILY 04/17/19 04/17/19 History simvastatin 10 mg PO DAILY 04/17/19 04/17/19 History Allergies Allergy/AdvReac Type Severity Reaction Status Date / Time No Known Allergies Allergy Unverified 04/17/19 15:47 Exam Const General: not in acute distress Nutritional Appearance: well nourished Orientation: oriented x3 [facility] Head: normal to inspection Eyes Sclera: sclerae normal Pupils: PERRL Neck Neck: no lymphadenopathy Thyroid: thyroid normal Carotids: no bruits Chest Breast inspection: normal inspection of the axillae Resp Effort & Inspection: audible wheezes and cough Cardio Rate: regular rate Rhythm: regular rhythm Pulses: dorsalis pedis pulses present GI Inspection: non-distended and obesity Palpation: soft, no hepatosplenomegaly, no hernias and tender in the epigastrum Skin General skin exam: no rashes or lesions noted Neuro General: alert Cognition: normal cognition Extrem General: normal to inspection Psych Attitude: cooperative Results Labs : 04/18/19 06:10 04/18/19 06:10 Laboratory Results - last 24 hr 04/17/19 04/17/19 04/17/19 16:40 16:40 16:55 WBC 11.36 H RBC 4.60 Hgb 13.5 Hct 40.6 MCV 88.3 MCH 29.3 MCHC 33.3 RDW 13.8 Plt Count 211 MPV 9.2 Immature Gran % 0.2 Neutrophils % 80.4 Lymphocytes % 11.5 Monocytes % 7.4 Eosinophils % 0.4 Basophils % 0.1 Absolute Neutrophils 9.13 H Absolute Lymphocytes 1.31 Absolute Monocytes 0.84 H Absolute Eosinophils 0.05 Absolute Basophils 0.01 Sodium 137 Potassium 3.5 Chloride 101 Carbon Dioxide 26.1 Anion Gap 9.9 BUN 11 Creatinine 0.97 Estimated GFR/1.73 m2 >= 60.00 Glucose 155 H Lactate 1.6 H Calcium 8.7 Magnesium 1.7 L Total Bilirubin 0.7 AST 18 ALT 41 Alkaline Phosphatase 104 Troponin I < 0.05 Total Protein 7.5 Albumin 3.2 L Lipase 76 Urine Color Urine Clarity Urine pH Ur Specific [place] Urine Protein Urine Ketones Urine Blood Urine Nitrite Urine Bilirubin Urine Urobilinogen Ur Leukocyte Esterase Urine RBC Urine WBC Ur Epithelial Cells Urine Crystals Urine Bacteria Urine Casts Urine Mucus Urine Other Ur Culture Indicated? Urine Glucose 04/17/19 04/18/19 04/18/19 20:34 06:10 06:10 WBC 13.12 H RBC 4.56 Hgb 13.3 L Hct 41.0 MCV 89.9 MCH 29.2 MCHC 32.4 RDW 14.3 H Plt Count 220 MPV 9.5 Immature Gran % 0.2 Neutrophils % 83.6 Lymphocytes % 7.9 Monocytes % 7.8 Eosinophils % 0.3 Basophils % 0.2 Absolute Neutrophils 10.97 H Absolute Lymphocytes 1.04 L Absolute Monocytes 1.02 H Absolute Eosinophils 0.04 Absolute Basophils 0.03 Sodium 139 Potassium 3.7 Chloride 103 Carbon Dioxide 27.3 Anion Gap 8.7 BUN 12 Creatinine 0.94 Estimated GFR/1.73 m2 >= 60.00 Glucose 150 H Lactate Calcium 8.5 Magnesium Total Bilirubin AST ALT Alkaline Phosphatase Troponin I Total Protein Albumin Lipase 53 L Urine Color Little Urine Clarity Clear Urine pH 7.5 Ur Specific [place] 1.010 Urine Protein 30 H Urine Ketones Negative Urine Blood Negative Urine Nitrite Negative Urine Bilirubin Negative Urine Urobilinogen 4.0 H Ur Leukocyte Esterase Negative Urine RBC Negative Urine WBC 0-2 Ur Epithelial Cells Rare Urine Crystals Negative Urine Bacteria Negative Urine Casts Negative Urine Mucus Negative Urine Other Rare spermatozoa Ur Culture Indicated? No Urine Glucose Negative Last Vital Signs Temp 101.1 F H 04/18/19 08:42 Pulse 90 04/18/19 08:10 Resp 24 04/18/19 08:10 BP 144/76 H 04/18/19 07:10 Pulse Ox 95 04/18/19 08:10
--- NOTE | 2019-04-18 11:47 | PDOC.CMIN ---
- If Service Date Differs Date of service: 04/18/19 Time of Service: 11:47 Care Management Initial Assess REASON FOR HOSPITALIZATION:: Abdominal fluid collection, fever PAST MEDICAL HISTORY/PAST SURGICAL HISTORY:: Medical History. COPD (chronic obstructive pulmonary disease) (Chronic). Depression (Chronic). Per Ex-Spouse, Doug has had many admissions for psych stabilization. Surgical History. Colonoscopy - MAC (12/23/16). No significant past surgical history (Acute) PREVIOUS FUNCTIONAL STATUS/SOCIAL/FAMILY SUPPORTS:: Doug lives in [place] with a roommate, Woody Villafana. 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 He has a rehabilitation case coordinator through [employer], Douglas Villafana, who helps with his medication management, employment and community support. He previously has seen a counselor, but is not at this time. He is independent with ADL's. CURRENT FUNCTIONAL STATUS:: Doug was lying in bed and appeared to be sleeping when CM entered the room. He stated that the medicine was making him feel drowsy, but he said that his pain is under control. His roommate, Woody, and ex , Deloris were in the room and told CM that they were unsure of the plan at this time, but they expected to see the doctor soon. ADVANCE DIRECTIVES:: None on file, CM offered to bring a copy for him to review and/or fill out while he is here, if desired. Has patient been provided with information about the portal?: Yes Did the patient sign up for the portal?: No (Not interested) CODE STATUS:: Full Code INSURANCE COVERAGE / FINANCIAL ISSUES:: Medicare CURRENT HOME/COMMUNITY SERVICES/EQUIPMENT:: Doug currently has a rehabilitation case coordinator, Douglas Villafana, through [employer] for medicine management, employment support and community support. He previously has seen a counselor, but he does not have one currently. He does not have any DME. PRIMARY CARE PHYSICIAN:: Stanford Chu POTENTIAL DISCHARGE NEEDS:: Doug will be discharged home when medically ready and will resume current services. Follow up appointment with PCP. PATIENT/FAMILY EDUCATION NEEDS:: Review of community based supports, discharge plan, discussion of self care needs upon discharge, and Ask Me Three. ANTICIPATED BARRIERS TO DISCHARGE:: None identified at this time. TRANSPORTATION:: Private vehicle, driven by ex , Deloris. PLAN:: Doug will remain NPO per MD and is currently receiving antibiotics. Anticipate Odug will return home when medically ready with a resumption of community services.
--- NOTE | 2019-04-18 14:19 | CHAPLAIN ---
Doug was in bed and had a couple of visitors with him when I stopped in. He said he'd just be adjusted in bed. He seemed a little groggy but responded to questions. I explained my role and offered support. I let his guests know about the coffee and tea available in the family waiting room
--- NOTE | 2019-04-18 15:16 | MCONE_ITS ---
Date of service: 04/18/19 Time of Service: 15:17 Assessment and Plan (1) Respiratory distress: Current visit: Yes Status: Acute My impression is that this could be a combination of COPD and CHF. Chart review does demonstrate a prior diagnosis of cardiomyopathy, though his last EF of 55% on echo was reasonable. Given the severity of symptoms, will -obtain ABG, CXR, EKG, pro BNP, troponin -d/c IVF until more information is available -schedule duonebs in addition to prn albuterol; start symbicort -per my discussion with Dr Wright, given a strong suspicion for a perforated ulcer, systemic steroids should be avoided, but inhaled should be safe. -give 2 grams of magnesium sulfate -consider IV lasix, BiPAP. -get sleep study results -repeat echo -low threshold to transfer to ICU (2) Cardiomyopathy: Current visit: Yes Status: Acute As above (3) COPD (chronic obstructive pulmonary disease): Current visit: No Status: Chronic As above (4) Obstructive sleep apnea: Current visit: Yes Status: Suspected Obtaining sleep study results (5) Pulmonary hypertension: Current visit: Yes Status: Acute Per Echo in 2017. Could certainly go along with MARCK. Repeating echo. Monitor volume status. (6) Abdominal pain: Current visit: Yes Status: Acute This is very mysterious. A foreign body is also identified on imaging, but the patient does not provide any clues as to what it might be. Somewhere on the differential, we have to consider that there may have been another suicide attempt (he does have a history of these). The patient does not exhibit suicidal ideation clearly now, but this will need to be probed more. Agree with empiric zosyn and that EGD right now could results in insufflating a potentially closed off perforated ulcer and may be more risky than beneficial. Will defer to primary team. We will continue to follow with you. Thank you for this consult! History of Present Illness Chief Complaint: shortness of breath Narrative: Mr Smith is a 54 year old male asthma/COPD, cardiomyopathy per chart review (patient denies this), hypercholesterolemia, obesity, ongoing tobacco abuse, , who was admitted to the general surgery service 04/17/19 with severe abdominal pain with evidence of abdominal fluid collections adjacent to the stomach (abscesses vs closed off perforated ulcers) as well as evidence of a metallic foreign body in his small intestine. Hospitalists are consulted for helping manage his shortness of breath. The patient stated to me that he has had a feeling of chest congestion for the last 2-3 days. He has had a cough, but it hasn't been productive. He has been wheezing. He does not know if he has had fevers at home. He did have a Tmax today of 38.4. He had a negative CXR of his chest this morning, and there were no infiltrates on his CT of the chest last night. He was initiated on zosyn. The patient states that his breathing right now is his normal, and that he is not any more short of breath now than his normal. However, respiratory therapy became very concerned about his lung sounds and respiratory rate (high 20's) and effort. Consults Consult date: 04/18/19 Requesting physician: Wilda Wright Review of Systems Review of Systems Review of systems was limited - the patient does not answer all questions, seems somewhat confused, and is a poor historian. He endorsed abdominal pain, denied shortness of breath. Complains of BUE weakness, dropping objects, denies neck pain. Cough is nonproductive. No chest pain. [facility] Medical History (Updated 04/18/19 @ 15:43 by Socorro Jimenez MD) Cardiomyopathy (Acute) EF 55% per echo in 11/2016, 41% per MPI in 08/2016. COPD (chronic obstructive pulmonary disease) (Chronic) Non-oxygen dependent Depression (Chronic) Hearing loss in right ear (Acute) History of suicide attempt (Acute) Hyperlipidemia (Acute) Insomnia (Acute) Nightmares (Acute) Obesity (Chronic) Obstructive sleep apnea (Suspected) Suspected - the patient has never heard of this diagnosis, he states; he was ordered a sleep study in 12/2018, we are procuring results Pulmonary hypertension (Acute) mild per echo in 2017 Vitamin D deficiency (Acute) Surgical History (Updated 04/18/19 @ 15:36 by Socorro Jimenez MD) Colonoscopy - MAC (12/23/16) History of ear surgery (Acute) Family History (Updated 04/18/19 @ 15:36 by Socorro Jimenez MD) Father Stroke Mother Liver cancer Social History Smoking/Tobacco Use Status: Current every day Alcohol Intake: never Drug use: Never Do you feel safe at home: Yes Do you feel safe in your relationship?: Yes Exam Narrative Exam Narrative: General: Obese middle-aged male, somewhat somnolent, but arousable during my exam, poor history providers (does not know details of history), A&Ox3, visibly tachypneic, audibly wheezing Neurological: A&Ox3 but somnolent, 5/5 strength in BUE, otherwise no focal deficits Psychiatric: Mildly anxious Skin: intact HEENT: Atraumatic, normocephalic, EOMI, dry MM, white film over tongue c/w thrush, Not opening mouth widely enough for me to examine oropharynx, no submandibular or cervical lymphadenopathy, ? goiter, no JVD Cardiovascular: RRR, mildly tachycardic Lungs: Rhonchi and pronounced rales B - I feel I hear more CHF; tachypneic Gastrointestinal: abdomen is soft, tender in epigastrium and LUQ Extremities: no e/c/c BLE's, 5/5 strength in BUE's Results Last Vital Signs Temp 37.2 C 04/18/19 11:30 Pulse 73 04/18/19 14:33 Resp 28 H 04/18/19 14:33 BP 134/68 04/18/19 11:30 Pulse Ox 95 04/18/19 14:33 Labs : 04/18/19 06:10 04/18/19 06:10 Laboratory Results - last 24 hr 04/17/19 04/17/19 04/17/19 16:40 16:40 16:55 WBC 11.36 H RBC 4.60 Hgb 13.5 Hct 40.6 MCV 88.3 MCH 29.3 MCHC 33.3 RDW 13.8 Plt Count 211 MPV 9.2 Immature Gran % 0.2 Neutrophils % 80.4 Lymphocytes % 11.5 Monocytes % 7.4 Eosinophils % 0.4 Basophils % 0.1 Absolute Neutrophils 9.13 H Absolute Lymphocytes 1.31 Absolute Monocytes 0.84 H Absolute Eosinophils 0.05 Absolute Basophils 0.01 Sodium 137 Potassium 3.5 Chloride 101 Carbon Dioxide 26.1 Anion Gap 9.9 BUN 11 Creatinine 0.97 Estimated GFR/1.73 m2 >= 60.00 Glucose 155 H Lactate 1.6 H Calcium 8.7 Magnesium 1.7 L Total Bilirubin 0.7 AST 18 ALT 41 Alkaline Phosphatase 104 Troponin I < 0.05 Total Protein 7.5 Albumin 3.2 L Lipase 76 Urine Color Urine Clarity Urine pH Ur Specific [place] Urine Protein Urine Ketones Urine Blood Urine Nitrite Urine Bilirubin Urine Urobilinogen Ur Leukocyte Esterase Urine RBC Urine WBC Ur Epithelial Cells Urine Crystals Urine Bacteria Urine Casts Urine Mucus Urine Other Ur Culture Indicated? Urine Glucose 04/17/19 04/18/19 04/18/19 20:34 06:10 06:10 WBC 13.12 H RBC 4.56 Hgb 13.3 L Hct 41.0 MCV 89.9 MCH 29.2 MCHC 32.4 RDW 14.3 H Plt Count 220 MPV 9.5 Immature Gran % 0.2 Neutrophils % 83.6 Lymphocytes % 7.9 Monocytes % 7.8 Eosinophils % 0.3 Basophils % 0.2 Absolute Neutrophils 10.97 H Absolute Lymphocytes 1.04 L Absolute Monocytes 1.02 H Absolute Eosinophils 0.04 Absolute Basophils 0.03 Sodium 139 Potassium 3.7 Chloride 103 Carbon Dioxide 27.3 Anion Gap 8.7 BUN 12 Creatinine 0.94 Estimated GFR/1.73 m2 >= 60.00 Glucose 150 H Lactate Calcium 8.5 Magnesium Total Bilirubin AST ALT Alkaline Phosphatase Troponin I Total Protein Albumin Lipase 53 L Urine Color Little Urine Clarity Clear Urine pH 7.5 Ur Specific [place] 1.010 Urine Protein 30 H Urine Ketones Negative Urine Blood Negative Urine Nitrite Negative Urine Bilirubin Negative Urine Urobilinogen 4.0 H Ur Leukocyte Esterase Negative Urine RBC Negative Urine WBC 0-2 Ur Epithelial Cells Rare Urine Crystals Negative Urine Bacteria Negative Urine Casts Negative Urine Mucus Negative Urine Other Rare spermatozoa Ur Culture Indicated? No Urine Glucose Negative Imaging Additional studies: CT abdomen/pelvis 04/17/19: Wall thickening of the stomach with fluid collections and inflammation in the surrounding fat. A foreign body is noted in the small bowel. The findings could be secondary to perforation by the foreign body. A mass with perforation could not be excluded. Endoscopy is recommended for further evaluation. CT chest/abdomen/pelvis 04/17/19: Mass vs fluid collection of the inferior stomach. Metallic foreign body is noted in the small bowel and the findings could be secondary to perforation. Endoscopy is recommended. No pulmonary infiltrates. CXR 04/18/19: Negative portable chest.
--- NOTE | 2019-04-18 15:29 | DI.RAD_ITS ---
SYMPTOMS/DIAGNOSIS: RESPIRATORY DISTRESS, CONCERN FOR CHF PORTABLE CHEST: Comparison is made with [id number] at 7:53 am. The lungs are not well inflated. There is poor penetration at the lung bases. There is no evidence of CHF. There is a question of increased density at the right costophrenic angle vs underpenetration artifact. IMPRESSION: Limited exam. There is artifact at the right lateral aspect of the film. If there is further clinical concern, repeat PA and lateral exam should be performed.
[2019-04-18] MEDS: Budesonide/Formoterol 160/4.5 6 GM 60 PUFF INH IH ×2 (15:35→19:41)
[2019-04-18 15:45] LABS: Lactate 0.9 mmol/L (0.6-1.4)
[2019-04-18 15:47] LABS: BE 1.1 mmol/L (-3-3); HCO3 25 mmol/L (22-28); pCO2 37 mmHg (34-47); pH 7.45 (7.35-7.45); pO2 58 mmHg (83-108); sO2 93 % (94-98); tCO2 23 mmol/L (22-29)
[2019-04-18 15:49] LABS: FIO2 21 %; Site Right Radial
[2019-04-18] MEDS: MAGNESIUM SULFATE 2 GM/50 ML BAG IVPB (15:51)
[2019-04-18] MEDS: Furosemide 20 MG/2 ML VIAL IVP (16:11)
[2019-04-18 16:12] LABS: NT-proBNP 58 pg/mL
[2019-04-18] MEDS: Normal Saline Flush 10 ML SYR IVP ×3 (16:12→22:13)
[2019-04-18 16:15] LABS: Troponin I < 0.05 ng/mL (0.00-0.06)
[2019-04-18] MEDS: Albuterol/Ipratropium 3 ML UPD VIAL UPD ×2 (16:50→22:12)
[2019-04-18] MEDS: Nystatin 500000 UNITS/5 ML SUSP 5ML CUP PO ×2 (18:19→22:11)
[2019-04-18] MEDS: Pantoprazole 40 MG VIAL IVP (22:13)
[2019-04-18] MEDS: Normal Saline 1,000 ML 75 ML IV (22:51)
[2019-04-19] VITALS (13 sets, daily range): BP systolic 115–141; BP diastolic 70–77; PULSE 69–79; RESP 2–24; TEMP 36.9–38.3; O2SAT 87–95
[2019-04-19] MEDS: PIPERACILLIN/TAZO 3.375 GM in Normal Saline 50 ML IVPB ×2 (01:28→09:06)
[2019-04-19] MEDS: Albuterol/Ipratropium 3 ML UPD VIAL UPD ×3 (04:04→22:20)
[2019-04-19] MEDS: Nystatin 500000 UNITS/5 ML SUSP 5ML CUP PO ×5 (06:17→22:20)
[2019-04-19 06:40] LABS: Abs Immature Grans 0.03 k/cumm (0.0-0.09); Absolute Eosinophil Count 0.04 k/cumm (0.0-0.7); Absolute Lymphocyte Count 0.75 k/cumm (1.2-3.4); Absolute Monocyte Count 0.77 k/cumm (0.11-0.7); Absolute Neutrophil Count 10.95 k/cumm (1.2-6.7); Basophils % 0.2; Eosinophils % 0.3; HCT 38.1 % (40.0-50.0); HGB 12.1 g/dL (13.5-17.5); Immature Grans % 0.2; Mean Corp. HGB Concentration 31.8 g/dL (32.0-36.0); Mean Corpuscular Hemoglobin 28.9 pg (27.0-33.0); Mean Corpuscular Volume 90.9 fL (80-95); Mean Platelet Volume 9.6 fL (8.0-11.0); Monocytes % 6.1; Neutrophils % 87.2; Platelet Count 204 x1000/uL (130-400); RBC 4.19 m/cumm (4.50-6.00); RBC Distribution Width 14.2 % (11.8-14.1); White Blood Cell Count 12.56 k/cumm (4.4-10.8)
[2019-04-19 06:41] LABS: Absolute Basophil Count 0.03 k/cumm (0.0-0.2)
[2019-04-19 06:56] LABS: ALT 29 U/L (16-63); AST 15 U/L (15-37); Albumin 2.7 g/dL (3.4-5.0); Alkaline Phosphatase 94 U/L (46-116); BUN 15 mg/dL (7-18); Bilirubin, Total 1.4 mg/dL (0.2-1.0); CO2 25.1 mmol/L (21.0-32.0); CREATININE 0.99 mg/dL (0.70-1.30); Calcium 8.6 mg/dL (8.5-10.1); Glucose 153 mg/dL (70-100); Total Protein 7.5 g/dL (6.4-8.2)
[2019-04-19 07:07] LABS: Anion Gap 9.9 mmol/L (3-11); Chloride 102 mmol/L (98-107); Potassium 3.5 mmol/L (3.5-5.1); Sodium 137 mmol/L (136-145)
--- NOTE | 2019-04-19 07:55 | MERGE_ITS ---
*[facility]* *[facility]* [address] [place] [address] Date of study: 04/19/2019 Transthoracic Echocardiography M-mode, complete 2D, complete spectral Doppler, and color Doppler *STUDY CONCLUSIONS* Summary: 1. Left ventricle: The cavity size was dilated. Wall thickness was normal. Systolic function was normal. The estimated ejection fraction was 50-55%. Wall motion was normal; there were no regional wall motion abnormalities. 2. Right ventricle: The cavity size was normal. Systolic function was normal. 3. Pulmonary arteries: Pulmonary systolic pressure was increased, in the range of 40mm Hg to 45mm Hg. 4. Inferior vena cava: The vessel was patent and normal in size. The respirophasic diameter changes were in the normal range (greater than or equal to 50%), consistent with normal central venous pressure. *PATIENT PRESENTATION* Height: 177.8cm (70in ) S/D Pressure: 135 / 72 Weight: 135.2kg (297.4lb ) BSA: 2.65m^2 Test start time: 07:55 AM. Test stop time: 08:50 AM. PERFORMING Unknown PERFORMING [facility] APPLIED EXERCISE PHYSIOLOGIST RT Rose Govea)(CT), [facility] CONSULTING Socorro Jimenez ORDERING Socorro Jimenez REFERRING Socorro Jimenez *PROCEDURE DATA* Procedure information: The patient was identified by two identifiers. This study was interpreted by [facility]. Pertinent images and digital data are archived for permanent storage and are available for subsequent review. Comparison was made to the study of 12/07/2016. Study status: Routine. Transthoracic echocardiography. M-mode, complete 2D, complete spectral Doppler, and color Doppler. A Transthoracic Echocardiogram was performed. Scanning was performed from the parasternal, apical, subcostal, and suprasternal notch acoustic windows. Images were obtained using an [id number] cardiac ultrasound machine. Image quality was adequate. Study completion: The patient tolerated the procedure well. There were no complications. History: PMH: suspicion for CHF. *CARDIAC ANATOMY* Left ventricle: The cavity size was dilated. Wall thickness was normal. Systolic function was normal. The estimated ejection fraction was 50-55%. Wall motion was normal; there were no regional wall motion abnormalities. Findings consistent with diastolic dysfunction. Unable to assess filling pressures. Aortic valve: Trileaflet; mildly thickened leaflets. Mobility was not restricted. Doppler: Transvalvular velocity was within the normal range. There was no stenosis. There was no significant regurgitation. VTI ratio of LVOT to aortic valve: 0.77. Valve area (VTI): 2.8cm^2. Indexed valve area (VTI): 1.1cm^2/m^2. Peak velocity ratio of LVOT to aortic valve: 0.73. Valve area (Vmax): 2.7cm^2. Indexed valve area (Vmax): 1cm^2/m^2. Mean velocity ratio of LVOT to aortic valve: 0.74. Valve area (Vmean): 2.7cm^2. Indexed valve area (Vmean): 1cm^2/m^2. Mean gradient (S): 6.4mm Hg. Peak gradient (S): 11.1mm Hg. Aorta: Aortic root: The aortic root was mildly dilated. Ascending aorta: The ascending aorta was mildly dilated. Mitral valve: Structurally normal valve. Mobility was not restricted. Doppler: Transvalvular velocity was within the normal range. There was no evidence for stenosis. There was trivial regurgitation. Valve area by pressure half-time: 4.1cm^2. Indexed valve area by pressure half-time: 1.6cm^2/m^2. Peak gradient (D): 5.9mm Hg. Left atrium: The atrium was at the upper limits of normal in size. Right ventricle: The cavity size was normal. Systolic function was normal. Pulmonic valve: The pulmonary valve appears to be grossly normal. Doppler: Transvalvular velocity was within the normal range. There was no evidence for stenosis. There was trivial regurgitation. Tricuspid valve: Structurally normal valve. Doppler: Transvalvular velocity was within the normal range. There was no evidence for stenosis. There was trivial regurgitation. Pulmonary artery: Poorly visualized. Pulmonary systolic pressure was increased, in the range of 40mm Hg to 45mm Hg. Right atrium: The atrium was dilated. Pericardium: There was no pericardial effusion. Systemic veins: Inferior vena cava: Well visualized. The vessel was patent and normal in size. The respirophasic diameter changes were in the normal range (greater than or equal to 50%), consistent with normal central venous pressure. Baseline ECG: Normal sinus rhythm. Measurements Left ventricle Value 12/07/2016 Reference LV ID, ED, PLAX (H) 6.7 cm 6.3 3.5 - 6.0 LV ID, ES, PLAX (H) 4.9 cm 5.0 2.1 - 4.0 LV PW thickness, ED, PLAX 0.9 cm 0.9 LV end-diastolic volume, 157 ml 1-p A2C LV ejection fraction, 1-p 60 % 56 A2C LV end-diastolic volume, 145 ml 1-p A4C LV ejection fraction, 1-p 49 % 53 A4C LV e', medial 0.1 m/sec LV E/e', medial 12 Ventricular septum Value 12/07/2016 Reference IVS thickness, ED, PLAX 0.9 cm 1.0 LVOT Value 12/07/2016 Reference LVOT ID, A-P 2.2 cm 2.2 LVOT area 3.7 cm^2 3.6 LVOT peak velocity, S 1.22 m/sec 1.19 LVOT mean velocity, S 0.9 m/sec LVOT VTI, S 23.0 cm 28.0 LVOT peak gradient, S 5.9 mm Hg 5.7 LVOT mean gradient, S 3.6 mm Hg 2.8 Stroke volume (SV), LVOT 85 ml DP Stroke index (SV/bsa), 32 ml/m^2 LVOT DP Aortic valve Value 12/07/2016 Reference Aortic valve peak 1.7 m/sec velocity, S Aortic valve mean 1.2 m/sec velocity, S Aortic valve VTI, S 30.0 cm Aortic mean gradient, S 6.4 mm Hg Aortic peak gradient, S 11.1 mm Hg VTI ratio, LVOT/AV 0.77 0.68 Aortic valve area, VTI 2.8 cm^2 2.6 Velocity ratio, peak, 0.73 LVOT/AV Aortic valve area, peak 2.7 cm^2 2.3 velocity Velocity ratio, mean, 0.74 LVOT/AV Aortic valve area, mean 2.7 cm^2 velocity Aortic valve area/bsa, 1 cm^2/m^2 mean velocity Aorta Value 12/07/2016 Reference Aortic root ID, ED 3.8 cm 3.9 Ascending aorta ID, A-P, S 4.0 cm 4.0 Left atrium Value 12/07/2016 Reference LA ID, A-P, ES 3.4 cm LA ID/bsa, A-P 1.3 cm/m^2 <=2.2 LA volume, ES, 2-p 69 ml LA volume/bsa, ES, 2-p 26 ml/m^2 LA/aortic root ratio 0.89 1.17 Mitral valve Value 12/07/2016 Reference Mitral E-wave peak 1.22 m/sec 1.07 velocity Mitral A-wave peak 0.9 m/sec 0.58 velocity Mitral deceleration time 183 ms 150 - 230 Mitral pressure half-time 53 ms 82 Mitral peak gradient, D 5.9 mm Hg 4.6 Mitral E/A ratio, peak 1.35 1.86 Mitral valve area, PHT, DP 4.1 cm^2 2.7 Tricuspid valve Value 12/07/2016 Reference Tricuspid regurg peak 3.2 m/sec 2.7 velocity Tricuspid peak RV-RA 42.1 mm Hg 29.3 gradient Right atrium Value 12/07/2016 Reference RA area, ES, A4C (H) 20.4 cm^2 21 8.3 - 19.5 Legend: (L) and (H) ronny values outside specified reference range. I have personally reviewed the images and have reviewed and edited the reported findings. Electronically signed by Tatum Vincent 04/19/2019 09:36
--- NOTE | 2019-04-19 08:03 | W.PM.PROGNOT ---
Date of Service Date of service: 04/19/19 Time of Service: 08:03 Assessment and Plan (1) Epigastric pain: Current visit: Yes Status: Acute Abdominal pain is improved today. Low grade fevers this morning. Continue NPO Continue IV antibiotics Resp.- Encouraged sitting up right during the day and ambulating as tolerated. Continue use of Incentive spirometer. This is currently being managed by the hospitalist service. No peritonitis, nausea or vomiting. Subjective Interval history since last seen: Patient reports he is feeling better today, with less abdominal pain. He reports that he had a small BM this morning. Exam Const General: cooperative Orientation: alert and oriented x3 Resp Effort & Inspection: audible wheezes, no cough and prolonged expiratory phase GI Inspection: obesity Palpation: soft, no guarding and tender (No peritonitis ) in the epigastrum; with no rebound tenderness Auscultation: normal bowel sounds Objective Objective Clinical Data: Abnormal lab results 04/18/19 04/19/19 04/19/19 Range/Units 15:12 06:10 06:10 WBC 12.56 H (4.4-10.8) k/cumm RBC 4.19 L (4.50-6.00) m/cumm Hgb 12.1 L (13.5-17.5) g/dL Hct 38.1 L (40.0-50.0) % MCHC 31.8 L (32.0-36.0) g/dL RDW 14.2 H (11.8-14.1) % Absolute Neutrophils 10.95 H (1.2-6.7) k/cumm Absolute Lymphocytes 0.75 L (1.2-3.4) k/cumm Absolute Monocytes 0.77 H (0.11-0.7) k/cumm pO2 58 L (83-108) mmHg O2 Saturation 93 L (94-98) % Glucose 153 H (70-100) mg/dL Total Bilirubin 1.4 H (0.2-1.0) mg/dL Albumin 2.7 L (3.4-5.0) g/dL Vital Signs Temperature 38.3 C H 04/19/19 04:04 Temperature Source Skin 04/19/19 04:04 Pulse 76 04/19/19 04:19 Pulse Rhythm Regular 04/19/19 02:14 Pulse 67 04/17/19 19:21 Respiratory Rate 24 04/19/19 04:19 Respiratory Effort 04/19/19 02:14 Respiratory Depth Normal 04/19/19 02:14 Respiratory Pattern Normal 04/19/19 02:14 Blood Pressure 135/72 04/19/19 04:04 Blood Pressure Mean 58 04/17/19 19:20 Pulse Oximetry 94 L 04/19/19 04:19 Oxygen Delivery Method Nasal Cannula 04/19/19 04:04 Oxygen Flow Rate 2 04/19/19 04:04 Pain Level 0 04/19/19 04:04 Comment 04/18/19 07:10 Intake & Output 04/18/19 04/19/19 04/19/19 18:59 06:59 18:59 Intake Total 1750 / 1850 100 / 1850 0 / 0 Output Total 125 / 1175 1050 / 1175 Balance 1625 / 675 -950 / 675 0 / 0 Weight 132.4 kg Intake: IV 1700 / 1800 100 / 1800 Oral 50 / 50 0 / 0 Output: Urine 125 / 1175 1050 / 1175 Other: Urine Color Light Little Straw [place] Urine Appearance Clear Stool Size Moderate Stool Characteristics Soft Formed Voiding Methods Incontinent Toilet Laboratory Results WBC 12.56 k/cumm (4.4-10.8) H 04/19/19 06:10 RBC 4.19 m/cumm (4.50-6.00) L 04/19/19 06:10 Hgb 12.1 g/dL (13.5-17.5) L 04/19/19 06:10 Hct 38.1 % (40.0-50.0) L 04/19/19 06:10 MCV 90.9 fL (80-95) 04/19/19 06:10 MCH 28.9 pg (27.0-33.0) 04/19/19 06:10 MCHC 31.8 g/dL (32.0-36.0) L 04/19/19 06:10 RDW 14.2 % (11.8-14.1) H 04/19/19 06:10 Plt Count 204 x1000/uL (130-400) 04/19/19 06:10 MPV 9.6 fL (8.0-11.0) 04/19/19 06:10 Immature Gran % 0.2 04/19/19 06:10 87.2 04/19/19 06:10 6.0 04/19/19 06:10 6.1 04/19/19 06:10 0.3 04/19/19 06:10 0.2 04/19/19 06:10 Absolute Neutrophils 10.95 k/cumm (1.2-6.7) H 04/19/19 06:10 Absolute Lymphocytes 0.75 k/cumm (1.2-3.4) L 04/19/19 06:10 Absolute Monocytes 0.77 k/cumm (0.11-0.7) H 04/19/19 06:10 Absolute Eosinophils 0.04 k/cumm (0.0-0.7) 04/19/19 06:10 Absolute Basophils 0.03 k/cumm (0.0-0.2) 04/19/19 06:10 Sample Site Right radial 04/18/19 15:12 pCO2 37 mmHg (34-47) 04/18/19 15:12 pO2 58 mmHg (83-108) L 04/18/19 15:12 O2 Saturation 93 % (94-98) L 04/18/19 15:12 ABG pH 7.45 (7.35-7.45) 04/18/19 15:12 ABG HCO3 25 mmol/L (22-28) 04/18/19 15:12 ABG Total CO2 23 mmol/L (22-29) 04/18/19 15:12 ABG Base Excess 1.1 mmol/L (-3-3) 04/18/19 15:12 21 % 04/18/19 15:12 Sodium 137 mmol/L (136-145) 04/19/19 06:10 Potassium 3.5 mmol/L (3.5-5.1) 04/19/19 06:10 Chloride 102 mmol/L (98-107) 04/19/19 06:10 Carbon Dioxide 25.1 mmol/L (21.0-32.0) 04/19/19 06:10 9.9 mmol/L (3-11) 04/19/19 06:10 BUN 15 mg/dL (7-18) 04/19/19 06:10 0.99 mg/dL (0.70-1.30) 04/19/19 06:10 >= 60.00 (mL/min/1.73m2) 04/19/19 06:10 Glucose 153 mg/dL (70-100) H 04/19/19 06:10 0.9 mmol/L (0.6-1.4) 04/18/19 15:25 Calcium 8.6 mg/dL (8.5-10.1) 04/19/19 06:10 Magnesium 1.7 mg/dL (1.8-2.4) L 04/17/19 16:40 1.4 mg/dL (0.2-1.0) H 04/19/19 06:10 AST 15 U/L (15-37) 04/19/19 06:10 ALT 29 U/L (16-63) 04/19/19 06:10 94 U/L (46-116) 04/19/19 06:10 < 0.05 ng/mL (0.00-0.06) 04/18/19 15:25 NT-Pro-B Natriuret Pep 58 pg/mL (-299) 04/18/19 15:25 7.5 g/dL (6.4-8.2) 04/19/19 06:10 2.7 g/dL (3.4-5.0) L 04/19/19 06:10 53 U/L (73-393) L 04/18/19 06:10 Little (Yellow) 04/17/19 20:34 Clear (Clear) 04/17/19 20:34 7.5 (5-8) 04/17/19 20:34 Ur Specific [place] 1.010 (1.005-1.025) 04/17/19 20:34 30 mg/dL (Negative) H 04/17/19 20:34 Negative mg/dL (Negative) 04/17/19 20:34 Negative (Negative) 04/17/19 20:34 Negative (Negative) 04/17/19 20:34 Negative (Negative) 04/17/19 20:34 4.0 EU/dL (Up TO 0.2) H 04/17/19 20:34 Ur Leukocyte Esterase Negative (Negative) 04/17/19 20:34 Negative (0-2) 04/17/19 20:34 0-2 HPF (0-5) 04/17/19 20:34 Ur Epithelial Cells Rare HPF (Negative) 04/17/19 20:34 Negative HPF (Negative) 04/17/19 20:34 Negative HPF (Negative) 04/17/19 20:34 Negative LPF (Negative) 04/17/19 20:34 Negative (Negative) 04/17/19 20:34 Rare spermatozoa (Negative) 04/17/19 20:34 Ur Culture Indicated? No 04/17/19 20:34 Negative mg/dL (Negative) 04/17/19 20:34
--- NOTE | 2019-04-19 08:46 | PHARADMIT ---
Admission Pharmacy Clinical Review FEVER, GASTRIC WALL FLUID COLLECTION, ? ABSCESS (Observation) Code Status Full Code Current Weight 132.4 kg Renally Cleared and Narrow Therapeutic Index Meds CrCl~87ml/min QTc Value / Action Taken QTC 463 BP Control, Fever BP 135/72 Fever 38.3 Electrolytes reviewed WNL today...Mag not redrawn (Mag 2gram IV x1 yesterday for Mag 1.7) DVT Prophylaxis NONE-mobilization Opiate Usage / Scheduled Bowel Regimen Ordered MS IVP x 3 doses yesterday Plt/SCr for Heparin / Enoxaparin Plt 204 SCr 0.99 INR for Warfarin H/H stable, WBC/Bands H/H 12.1/38.1 WBC 12.56 Antibiotic appropriateness Zosyn Cultures and Sensitivities blood pending...no growth x24h Surgical ABX d/c within 24 hr DM control / Insulin Dosing Heart Failure (Check EF%) (JN's, B-Block, Diuretics) Metoprolol 25mg po QD Lasix 20mg IVP x1 yesterday IV to PO Switch Home Meds Reviewed Home Meds Not Ordered Melatonin, Simvastatin, Tramadol Comments diet is NPO, IVF's of NS @ 75ml/hr, no N/V-small BM today hospitalist also covering original CT scan shows 2 fluid collections near stomach...unsure what it is, ?perforated ulcer/foreign body...may need EGD Chest Xray: ruled out CHF
[2019-04-19] MEDS: FLUoxetine 20 MG CAP 60 MG PO (09:06)
[2019-04-19] MEDS: Metoprolol 25 MG TAB PO (09:06)
[2019-04-19] MEDS: risperiDONE 1 MG TAB 2 MG PO (09:06)
[2019-04-19] MEDS: Normal Saline Flush 10 ML SYR IVP ×3 (09:08→16:02)
--- NOTE | 2019-04-19 09:38 | DI.RAD_ITS ---
SYMPTOM/DIAGNOSIS: F/U RESPIRATORY FAILURE PORTABLE AP CHEST: Comparison is made with 04/18/19. The heart size and pulmonary vasculature are stable and within normal limits. There has been interval development of a left basilar infiltrate. This may represent atelectasis or pneumonia. The right lung appears clear. No effusions or pneumothoraces are identified. No acute osseous abnormality is appreciated. IMPRESSION: Development of a small left basilar infiltrate which may represent atelectasis or pneumonia.
[2019-04-19] MEDS: Budesonide/Formoterol 160/4.5 6 GM 60 PUFF INH IH ×2 (09:40→19:47)
[2019-04-19] MEDS: Pantoprazole 40 MG VIAL IVP ×2 (10:00→11:21)
[2019-04-19] MEDS: Sucralfate 1 GM TAB PO ×3 (10:00→22:19)
[2019-04-19] MEDS: IMIPENEM/CILASTATIN 500 MG in Normal Saline 100 ML 200 MG IVPB ×3 (10:01→22:20)
--- NOTE | 2019-04-19 10:43 | CMPROGNOTE_ITS ---
- If Service Date Differs Date of service: 04/19/19 Time of Service: 10:44 Care Management Progress Note S/O: Doug reports that he is feeling much better today, and that his pain is now under control. He said that he did not remember much from yesterday because he was sleeping most of the day. He was sitting up in his chair during the conversation with CM. He reported that he was told by the doctor that he will have a CT scan tomorrow, and that he is currently on IV antibiotics. CM contact ed Douglas Villafana, his [employer] pillowcase folder today, who is planning on visiting Doug this afternoon if time allows. CM contacted Theodore in [facility] regarding inhaler prescription, which is currently out of date. CM will fax new prescription to [facility] prior to discharge to identify cost, due to Doug stating he could not afford it previously. CM continues to follow. A: Doug is a 54 year old male admitted on 04/18/2019 with fever and abdominal fluid collection, possible abscess. P: Doug will remain NPO. A CT scan has been ordered for 04/20/19. Anticipate Doug will return home when medically cleared with a resumption of community services.
--- NOTE | 2019-04-19 14:16 | W.PM.PROGNOT ---
Date of Service Date of service: 04/19/19 Time of Service: 14:16 Assessment and Plan (1) Respiratory distress: Current visit: Yes Status: Acute Improving. I feel this still was a combination of mild iatrogenic CHF and COPD exacerbation in addition to what appears to be a LLL PNA. -patient was started on primaxin, to cover both pulmonary and intraabdominal sources, with which I fully agree. -Continue duonebs, prn albuterol, symbicort -recheck mag -If giving IV fluids, do so gently. -pulmonary hypertension might be contributing to patient getting easily fluid overloaded (2) Cardiomyopathy: Current visit: Yes Status: Acute EF 50-55%. As above (3) COPD (chronic obstructive pulmonary disease): Current visit: No Status: Acute Acute on chronic; (4) Obstructive sleep apnea: Current visit: Yes Status: Suspected Obtaining sleep study results (5) Pulmonary hypertension: Current visit: Yes Status: Acute Moderate by echo. If the patient has not yet had the sleep study, it is clear to me that in December sleep evaluation did recommend it and the patient should follow up to complete it. Meanwhile, this patient likely gets easily fluid overloaded due to this pulmonary hypertension. (6) Abdominal pain: Current visit: Yes Status: Acute ? intraabdominal abscesses vs walled off perforated gastric ulcers. If ulcers, could they have happened due to the metal object? Planned for repeat CT tomorrow. Abx changed to imipenem/cilastin. We will continue to follow with you. Subjective Interval history since last seen: Mr Smith states he feels better today. He states he has had less shortness of breath, that his cough is nonproductive, and that his upper abdomen no longer hurts. He is surprised that it does hurt when I push on it - he was previously unaware of it. Denies nausea, vomiting, chest pain. Exam Narrative Exam Narrative: General: Obese middle-aged male, A&Ox3, more awake today and looks a little better, comfortable - seems to be mentally disconnected from his symptoms. HEENT: EOMI, MMM, thrush Cardiovascular: RRR, no m/r/g Lungs: Rhonchi B - I feel this has improved Gastrointestinal: abdomen is soft, tender in epigastrium and LUQ, even on light palpation (the patient was surprised by this) Extremities: Trace edema BLE's, symmetric, no c/c Objective Objective Clinical Data: Abnormal lab results 04/18/19 04/19/19 04/19/19 Range/Units 15:12 06:10 06:10 WBC 12.56 H (4.4-10.8) k/cumm RBC 4.19 L (4.50-6.00) m/cumm Hgb 12.1 L (13.5-17.5) g/dL Hct 38.1 L (40.0-50.0) % MCHC 31.8 L (32.0-36.0) g/dL RDW 14.2 H (11.8-14.1) % Absolute Neutrophils 10.95 H (1.2-6.7) k/cumm Absolute Lymphocytes 0.75 L (1.2-3.4) k/cumm Absolute Monocytes 0.77 H (0.11-0.7) k/cumm pO2 58 L (83-108) mmHg O2 Saturation 93 L (94-98) % Glucose 153 H (70-100) mg/dL Total Bilirubin 1.4 H (0.2-1.0) mg/dL Albumin 2.7 L (3.4-5.0) g/dL Vital Signs Temperature 37.2 C 04/19/19 11:15 Temperature Source Tympanic 04/19/19 11:15 Pulse 69 04/19/19 11:15 Pulse Rhythm Regular 04/19/19 10:48 Pulse 67 04/17/19 19:21 Respiratory Rate 20 04/19/19 11:15 Respiratory Effort 04/19/19 10:48 Respiratory Depth Shallow 04/19/19 10:48 Respiratory Pattern Tachypnea 04/19/19 10:48 Blood Pressure 116/75 04/19/19 11:15 Blood Pressure Mean 58 04/17/19 19:20 Pulse Oximetry 94 L 04/19/19 11:15 Oxygen Delivery Method Nasal Cannula 04/19/19 11:15 Oxygen Flow Rate 2 04/19/19 11:15 Pain Level 0 04/19/19 11:15 Comment 04/18/19 07:10 Intake & Output 04/18/19 04/19/19 04/19/19 23:59 11:59 23:59 Intake Total 1700 / 2850 1078.75 / 1078.75 Output Total 575 / 575 1050 / 1050 Balance 1125 / 2275 28.75 / 28.75 Weight 132.4 kg Intake: IV 1700 / 2800 1078.75 / 1078.75 Oral 0 / 0 Output: Urine 575 / 575 1050 / 1050 Other: Urine Color Straw Dark [place] Urine Appearance Clear Comment concentrated urine Stool Size Moderate Stool Characteristics Soft Formed Voiding Methods Incontinent Toilet Laboratory Results WBC 12.56 k/cumm (4.4-10.8) H 04/19/19 06:10 RBC 4.19 m/cumm (4.50-6.00) L 04/19/19 06:10 Hgb 12.1 g/dL (13.5-17.5) L 04/19/19 06:10 Hct 38.1 % (40.0-50.0) L 04/19/19 06:10 MCV 90.9 fL (80-95) 04/19/19 06:10 MCH 28.9 pg (27.0-33.0) 04/19/19 06:10 MCHC 31.8 g/dL (32.0-36.0) L 04/19/19 06:10 RDW 14.2 % (11.8-14.1) H 04/19/19 06:10 Plt Count 204 x1000/uL (130-400) 04/19/19 06:10 MPV 9.6 fL (8.0-11.0) 04/19/19 06:10 Immature Gran % 0.2 04/19/19 06:10 87.2 04/19/19 06:10 6.0 04/19/19 06:10 6.1 04/19/19 06:10 0.3 04/19/19 06:10 0.2 04/19/19 06:10 Absolute Neutrophils 10.95 k/cumm (1.2-6.7) H 04/19/19 06:10 Absolute Lymphocytes 0.75 k/cumm (1.2-3.4) L 04/19/19 06:10 Absolute Monocytes 0.77 k/cumm (0.11-0.7) H 04/19/19 06:10 Absolute Eosinophils 0.04 k/cumm (0.0-0.7) 04/19/19 06:10 Absolute Basophils 0.03 k/cumm (0.0-0.2) 04/19/19 06:10 Sample Site Right radial 04/18/19 15:12 pCO2 37 mmHg (34-47) 04/18/19 15:12 pO2 58 mmHg (83-108) L 04/18/19 15:12 O2 Saturation 93 % (94-98) L 04/18/19 15:12 ABG pH 7.45 (7.35-7.45) 04/18/19 15:12 ABG HCO3 25 mmol/L (22-28) 04/18/19 15:12 ABG Total CO2 23 mmol/L (22-29) 04/18/19 15:12 ABG Base Excess 1.1 mmol/L (-3-3) 04/18/19 15:12 21 % 04/18/19 15:12 Sodium 137 mmol/L (136-145) 04/19/19 06:10 Potassium 3.5 mmol/L (3.5-5.1) 04/19/19 06:10 Chloride 102 mmol/L (98-107) 04/19/19 06:10 Carbon Dioxide 25.1 mmol/L (21.0-32.0) 04/19/19 06:10 9.9 mmol/L (3-11) 04/19/19 06:10 BUN 15 mg/dL (7-18) 04/19/19 06:10 0.99 mg/dL (0.70-1.30) 04/19/19 06:10 >= 60.00 (mL/min/1.73m2) 04/19/19 06:10 Glucose 153 mg/dL (70-100) H 04/19/19 06:10 0.9 mmol/L (0.6-1.4) 04/18/19 15:25 Calcium 8.6 mg/dL (8.5-10.1) 04/19/19 06:10 Magnesium 1.7 mg/dL (1.8-2.4) L 04/17/19 16:40 1.4 mg/dL (0.2-1.0) H 04/19/19 06:10 AST 15 U/L (15-37) 04/19/19 06:10 ALT 29 U/L (16-63) 04/19/19 06:10 94 U/L (46-116) 04/19/19 06:10 < 0.05 ng/mL (0.00-0.06) 04/18/19 15:25 NT-Pro-B Natriuret Pep 58 pg/mL (-299) 04/18/19 15:25 7.5 g/dL (6.4-8.2) 04/19/19 06:10 2.7 g/dL (3.4-5.0) L 04/19/19 06:10 53 U/L (73-393) L 04/18/19 06:10 Little (Yellow) 04/17/19 20:34 Clear (Clear) 04/17/19 20:34 7.5 (5-8) 04/17/19 20:34 Ur Specific [place] 1.010 (1.005-1.025) 04/17/19 20:34 30 mg/dL (Negative) H 04/17/19 20:34 Negative mg/dL (Negative) 04/17/19 20:34 Negative (Negative) 04/17/19 20:34 Negative (Negative) 04/17/19 20:34 Negative (Negative) 04/17/19 20:34 4.0 EU/dL (Up TO 0.2) H 04/17/19 20:34 Ur Leukocyte Esterase Negative (Negative) 04/17/19 20:34 Negative (0-2) 04/17/19 20:34 0-2 HPF (0-5) 04/17/19 20:34 Ur Epithelial Cells Rare HPF (Negative) 04/17/19 20:34 Negative HPF (Negative) 04/17/19 20:34 Negative HPF (Negative) 04/17/19 20:34 Negative LPF (Negative) 04/17/19 20:34 Negative (Negative) 04/17/19 20:34 Rare spermatozoa (Negative) 04/17/19 20:34 Ur Culture Indicated? No 04/17/19 20:34 Negative mg/dL (Negative) 04/17/19 20:34 CXR: Development of a small left basilar infiltrate which may represent atelectasis or pneumonia. Echo: 1. Left ventricle: The cavity size was dilated. Wall thickness was normal. Systolic function was normal. The estimated ejection fraction was 50-55%. Wall motion was normal; there were no regional wall motion abnormalities. 2. Right ventricle: The cavity size was normal. Systolic function was normal. 3. Pulmonary arteries: Pulmonary systolic pressure was increased, in the range of 40mm Hg to 45mm Hg. 4. Inferior vena cava: The vessel was patent and normal in size. The respirophasic diameter changes were in the normal range (greater than or equal to 50%), consistent with normal central venous pressure.
--- NOTE | 2019-04-19 15:15 | W.PM.PROGNOT ---
Date of Service Date of service: 04/19/19 Time of Service: 15:15 Assessment and Plan (1) Epigastric pain: Current visit: Yes Status: Acute A\\ Patient clinically better P\\ 1. CT scan in am- if fluid collection not improved then [place] need [place] [facility] [place] If improved then maybe can start clears 2. Low UOP- respiratory status improved. Discussed IV fluids with Dr. Jimenez. Will restart at 75 cc an hour 3. L:eukocytosis- continue on Primaxin to cover his ? abscess and possible lung infiltrate 4. Will sign patient back over to Dr. Wright Subjective Interval history since last seen: No abdominal pain. Wants to eat and drink. Exam GI Palpation: soft and nontender Auscultation: normal bowel sounds Objective Objective Clinical Data: Abnormal lab results 04/18/19 04/19/19 04/19/19 Range/Units 15:12 06:10 06:10 WBC 12.56 H (4.4-10.8) k/cumm RBC 4.19 L (4.50-6.00) m/cumm Hgb 12.1 L (13.5-17.5) g/dL Hct 38.1 L (40.0-50.0) % MCHC 31.8 L (32.0-36.0) g/dL RDW 14.2 H (11.8-14.1) % Absolute Neutrophils 10.95 H (1.2-6.7) k/cumm Absolute Lymphocytes 0.75 L (1.2-3.4) k/cumm Absolute Monocytes 0.77 H (0.11-0.7) k/cumm pO2 58 L (83-108) mmHg O2 Saturation 93 L (94-98) % Glucose 153 H (70-100) mg/dL Total Bilirubin 1.4 H (0.2-1.0) mg/dL Albumin 2.7 L (3.4-5.0) g/dL Vital Signs Temperature 99.0 F 04/19/19 11:15 Temperature Source Tympanic 04/19/19 11:15 Pulse 69 04/19/19 11:15 Pulse Rhythm Regular 04/19/19 10:48 Pulse 67 04/17/19 19:21 Respiratory Rate 20 04/19/19 11:15 Respiratory Effort 04/19/19 10:48 Respiratory Depth Shallow 04/19/19 10:48 Respiratory Pattern Tachypnea 04/19/19 10:48 Blood Pressure 116/75 04/19/19 11:15 Blood Pressure Mean 58 04/17/19 19:20 Pulse Oximetry 94 L 04/19/19 11:15 Oxygen Delivery Method Nasal Cannula 04/19/19 11:15 Oxygen Flow Rate 2 04/19/19 11:15 Pain Level 0 04/19/19 11:15 Comment 04/18/19 07:10 Intake & Output 04/18/19 04/19/19 04/19/19 23:59 11:59 23:59 Intake Total 1700 / 2850 1078.75 / 1078.75 Output Total 575 / 575 1050 / 1050 Balance 1125 / 2275 28.75 / 28.75 Weight 291 lb 14.272 oz Intake: IV 1700 / 2800 1078.75 / 1078.75 Oral 0 / 0 Output: Urine 575 / 575 1050 / 1050 Other: Urine Color Straw Dark [place] Urine Appearance Clear Comment concentrated urine Stool Size Moderate Stool Characteristics Soft Formed Voiding Methods Incontinent Toilet Laboratory Results WBC 12.56 k/cumm (4.4-10.8) H 04/19/19 06:10 RBC 4.19 m/cumm (4.50-6.00) L 04/19/19 06:10 Hgb 12.1 g/dL (13.5-17.5) L 04/19/19 06:10 Hct 38.1 % (40.0-50.0) L 04/19/19 06:10 MCV 90.9 fL (80-95) 04/19/19 06:10 MCH 28.9 pg (27.0-33.0) 04/19/19 06:10 MCHC 31.8 g/dL (32.0-36.0) L 04/19/19 06:10 RDW 14.2 % (11.8-14.1) H 04/19/19 06:10 Plt Count 204 x1000/uL (130-400) 04/19/19 06:10 MPV 9.6 fL (8.0-11.0) 04/19/19 06:10 Immature Gran % 0.2 04/19/19 06:10 87.2 04/19/19 06:10 6.0 04/19/19 06:10 6.1 04/19/19 06:10 0.3 04/19/19 06:10 0.2 04/19/19 06:10 Absolute Neutrophils 10.95 k/cumm (1.2-6.7) H 04/19/19 06:10 Absolute Lymphocytes 0.75 k/cumm (1.2-3.4) L 04/19/19 06:10 Absolute Monocytes 0.77 k/cumm (0.11-0.7) H 04/19/19 06:10 Absolute Eosinophils 0.04 k/cumm (0.0-0.7) 04/19/19 06:10 Absolute Basophils 0.03 k/cumm (0.0-0.2) 04/19/19 06:10 Sample Site Right radial 04/18/19 15:12 pCO2 37 mmHg (34-47) 04/18/19 15:12 pO2 58 mmHg (83-108) L 04/18/19 15:12 O2 Saturation 93 % (94-98) L 04/18/19 15:12 ABG pH 7.45 (7.35-7.45) 04/18/19 15:12 ABG HCO3 25 mmol/L (22-28) 04/18/19 15:12 ABG Total CO2 23 mmol/L (22-29) 04/18/19 15:12 ABG Base Excess 1.1 mmol/L (-3-3) 04/18/19 15:12 21 % 04/18/19 15:12 Sodium 137 mmol/L (136-145) 04/19/19 06:10 Potassium 3.5 mmol/L (3.5-5.1) 04/19/19 06:10 Chloride 102 mmol/L (98-107) 04/19/19 06:10 Carbon Dioxide 25.1 mmol/L (21.0-32.0) 04/19/19 06:10 9.9 mmol/L (3-11) 04/19/19 06:10 BUN 15 mg/dL (7-18) 04/19/19 06:10 0.99 mg/dL (0.70-1.30) 04/19/19 06:10 >= 60.00 (mL/min/1.73m2) 04/19/19 06:10 Glucose 153 mg/dL (70-100) H 04/19/19 06:10 0.9 mmol/L (0.6-1.4) 04/18/19 15:25 Calcium 8.6 mg/dL (8.5-10.1) 04/19/19 06:10 Magnesium 1.7 mg/dL (1.8-2.4) L 04/17/19 16:40 1.4 mg/dL (0.2-1.0) H 04/19/19 06:10 AST 15 U/L (15-37) 04/19/19 06:10 ALT 29 U/L (16-63) 04/19/19 06:10 94 U/L (46-116) 04/19/19 06:10 < 0.05 ng/mL (0.00-0.06) 04/18/19 15:25 NT-Pro-B Natriuret Pep 58 pg/mL (-299) 04/18/19 15:25 7.5 g/dL (6.4-8.2) 04/19/19 06:10 2.7 g/dL (3.4-5.0) L 04/19/19 06:10 53 U/L (73-393) L 04/18/19 06:10 Little (Yellow) 04/17/19 20:34 Clear (Clear) 04/17/19 20:34 7.5 (5-8) 04/17/19 20:34 Ur Specific [place] 1.010 (1.005-1.025) 04/17/19 20:34 30 mg/dL (Negative) H 04/17/19 20:34 Negative mg/dL (Negative) 04/17/19 20:34 Negative (Negative) 04/17/19 20:34 Negative (Negative) 04/17/19 20:34 Negative (Negative) 04/17/19 20:34 4.0 EU/dL (Up TO 0.2) H 04/17/19 20:34 Ur Leukocyte Esterase Negative (Negative) 04/17/19 20:34 Negative (0-2) 04/17/19 20:34 0-2 HPF (0-5) 04/17/19 20:34 Ur Epithelial Cells Rare HPF (Negative) 04/17/19 20:34 Negative HPF (Negative) 04/17/19 20:34 Negative HPF (Negative) 04/17/19 20:34 Negative LPF (Negative) 04/17/19 20:34 Negative (Negative) 04/17/19 20:34 Rare spermatozoa (Negative) 04/17/19 20:34 Ur Culture Indicated? No 04/17/19 20:34 Negative mg/dL (Negative) 04/17/19 20:34
[2019-04-19] MEDS: Lactated Ringers 1,000 ML 75 ML IV (19:48)
[2019-04-19] MEDS: Mirtazapine 15 MG TAB 7.5 MG PO (22:19)
[2019-04-19] MEDS: Pantoprazole 40 MG VIAL 80 MG IVP (22:20)
[2019-04-20] VITALS (7 sets, daily range): BP systolic 128–137; BP diastolic 76–82; PULSE 64–76; RESP 1–20; TEMP 36.9–37.2; O2SAT 93–97
[2019-04-20] MEDS: Sucralfate 1 GM TAB PO ×2 (04:24→10:29)
[2019-04-20] MEDS: IMIPENEM/CILASTATIN 500 MG in Normal Saline 100 ML 200 MG IVPB ×2 (04:24→10:29)
[2019-04-20] MEDS: Albuterol/Ipratropium 3 ML UPD VIAL UPD ×2 (04:25→11:12)
[2019-04-20] MEDS: Breeza Beverage 473 ML BTL PO ×2 (05:27→05:29)
[2019-04-20] MEDS: Omnipaque 350 MG/ML 50 ML BTL IJ (05:28)
--- NOTE | 2019-04-20 07:20 | DI.CT_ITS ---
SYMPTOM/DIAGNOSIS: F/U ABSCESS CT ABDOMEN AND PELVIS: CT scan of the abdomen and pelvis was performed following the uneventful administration of intravenous and oral contrast material. Comparison examination is 04/17/19 There are infiltrates seen in the lower lobes bilaterally, these may represent atelectasis or pneumonia. The liver is within normal limits in size. There is diffuse attenuation of the liver suggesting hepatic steatosis. No discrete hepatic mass is seen. The gallbladder is negative. There is no biliary ductal dilatation. The portal, superior mesenteric and splenic veins are patent. The pancreas, spleen and adrenal glands are unremarkable. The kidneys show normal and symmetric enhancement. There are tiny hypodensities seen in the kidneys. These are too small for further characterization but likely reflect small cysts. No solid masses identified. No obstruction is present. The urinary bladder is intact. There is question of thickening of the wall of the urinary bladder. This may be due to under distension. Inflammatory or infectious process cannot be excluded. Reproductive organs are unremarkable. The abdominal aorta is of normal caliber. No aneurysmal dilatation is seen. No evidence of abdominal or pelvic adenopathy or ascites is present. There is again seen a perigastric fluid collection. It measures 6.4 x 3.2 cm. It is grossly unchanged in size compared to the prior examination. There is also seen a perigastric fluid collection along the lesser curvature measuring 4.2 x 2.4 cm. This also appears similar in size compared to the prior examination. There is again seen a small focus of air interposed between the 2nd fluid collection and the stomach which may represent a small amount of pneumoperitoneum. There is infiltration in the adjacent perigastric soft tissues. No new fluid collections are seen to suggest new abscesses. The bowel is otherwise unremarkable. There is a normal appendix present. The linear radiopaque density previously seen in the small bowel now appears to lie in the dependent portion of the cecum. IMPRESSION: 1. Stable perigastric fluid collection suspicious for abscesses 2. Stable small focus of extraluminal air interposed between the lesser sac abscess and stomach 3. Distal migration of the intraluminal foreign body which now lies within the cecum
[2019-04-20 07:23] LABS: Abs Immature Grans 0.02 k/cumm (0.0-0.09); Absolute Basophil Count 0.01 k/cumm (0.0-0.2); Absolute Eosinophil Count 0.13 k/cumm (0.0-0.7); Absolute Lymphocyte Count 0.82 k/cumm (1.2-3.4); Absolute Monocyte Count 0.66 k/cumm (0.11-0.7); Absolute Neutrophil Count 8.16 k/cumm (1.2-6.7); Basophils % 0.1; Eosinophils % 1.3; HCT 36.4 % (40.0-50.0); HGB 11.4 g/dL (13.5-17.5); Immature Grans % 0.2; Lymphocytes % 8.4; Mean Corp. HGB Concentration 31.3 g/dL (32.0-36.0); Mean Corpuscular Hemoglobin 28.9 pg (27.0-33.0); Mean Corpuscular Volume 92.4 fL (80-95); Mean Platelet Volume 9.9 fL (8.0-11.0); Monocytes % 6.7; Neutrophils % 83.3; Platelet Count 224 x1000/uL (130-400); RBC 3.94 m/cumm (4.50-6.00); RBC Distribution Width 14.4 % (11.8-14.1)
[2019-04-20] MEDS: Omnipaque 350 MG/ML 100 ML BTL IJ (07:27)
--- NOTE | 2019-04-20 07:37 | DI.VRAD_ITS ---
Addendum created by Stanford Haddad MD on 04/20/2019 7:49:10 AM EDT THIS REPORT CONTAINS FINDINGS THAT MAY BE CRITICAL TO PATIENT CARE. The findings were verbally communicated via telephone conference with Kyle at 7:48 AM EDT on 04/20/2019. The findings were acknowledged and understood. Initial report created on 04/20/2019 7:36:33 AM EDT EXAM: CT Abdomen and Pelvis With Contrast EXAM DATE/TIME: 04/20/2019 12:01 AM CLINICAL HISTORY: 54 years old, male; Condition or disease; Abscess location: Not given; Patient HX: Follow up abscess. TECHNIQUE: Imaging protocol: Computed tomography of the abdomen and pelvis with intravenous contrast. Radiation optimization: All CT scans at this facility use at least one of these dose optimization techniques: automated exposure control; mA and/or kV adjustment per patient size (includes targeted exams where dose is matched to clinical indication); or iterative reconstruction. COMPARISON: CT ABDOMEN PELVIS W 04/17/2019 4:58 PM FINDINGS: Lungs: Basilar dependent pulmonary atelectasis is present. Liver: Hepatic steatosis is present. Gallbladder and bile ducts: Normal. No calcified stones. No ductal dilation. Pancreas: Normal. No ductal dilation. Spleen: Normal. No splenomegaly. Adrenals: Normal. No mass. Kidneys and ureters: Normal. No hydronephrosis. Stomach and bowel: See Soft Tissues Finding. Appendix: No evidence of appendicitis. Intraperitoneal space: Normal. No free air. No significant fluid collection. Vasculature: Normal. No abdominal aortic aneurysm. Lymph nodes: Normal. No enlarged lymph nodes. Bladder: The urinary bladder is questionably thickwalled. This may reflect incomplete distention. However correlation with UA is recommended to exclude cystitis. Reproductive: Unremarkable as visualized. Bones/joints: No acute fracture. No dislocation. Soft tissues: The perigastric abscess is grossly stable compared with the prior study currently measuring 6.4 x 3.2 cm. However small perigastric pneumoperitoneum has developed as well as an additional small fluid collection adjacent to the gastric antrum in the lesser sac measuring 3.9 x 2.2 cm, potentially a second abscess. IMPRESSION: 1. The perigastric abscess is grossly stable compared with the prior study currently measuring 6.4 x 3.2 cm. However small perigastric pneumoperitoneum has developed as well as an additional small fluid collection adjacent to the gastric antrum in the lesser sac measuring 3.9 x 2.2 cm, potentially a second abscess. The findings may reflect complication of gastric peptic ulcer disease. 2. Equivocal cystitis. Dictated and Authenticated by: Stanford Haddad MD. Ordering:IRENE Martinez MD
[2019-04-20 07:44] LABS: ALT 22 U/L (16-63); AST 13 U/L (15-37); Albumin 2.4 g/dL (3.4-5.0); Alkaline Phosphatase 96 U/L (46-116); Anion Gap 12.4 mmol/L (3-11); BUN 15 mg/dL (7-18); Bilirubin, Total 0.7 mg/dL (0.2-1.0); CO2 23.6 mmol/L (21.0-32.0); CREATININE 0.88 mg/dL (0.70-1.30); Calcium 8.7 mg/dL (8.5-10.1); Chloride 103 mmol/L (98-107); Glucose 134 mg/dL (70-100); Magnesium 2.2 mg/dL (1.8-2.4); Potassium 3.6 mmol/L (3.5-5.1); Sodium 139 mmol/L (136-145); Total Protein 7.6 g/dL (6.4-8.2)
[2019-04-20] MEDS: Budesonide/Formoterol 160/4.5 6 GM 60 PUFF INH IH (08:02)
[2019-04-20] MEDS: Nystatin 500000 UNITS/5 ML SUSP 5ML CUP PO (08:50)
[2019-04-20] MEDS: risperiDONE 1 MG TAB 2 MG PO (08:50)
[2019-04-20] MEDS: FLUoxetine 20 MG CAP 60 MG PO (08:50)
[2019-04-20] MEDS: Metoprolol 25 MG TAB PO (08:50)
--- NOTE | 2019-04-20 09:11 | PGE_ITS ---
Date of Service Date of service: 04/20/19 Time of Service: 08:20 Assessment and Plan (1) Epigastric pain: Current visit: Yes Status: Acute The CT from this morning is reviewed and shows a slightly more prominent fluid collection and one droplet of air contained in the lesser sac. This supports the working diagnosis of a perforated ulcer. Prior imaging suggested this had sealed off but today's images raise concerns it will not improve without surgery. He is stable clinically. Due to his significant COPD, pulmonary HTN, obesity and potential need for postoperative mechanical ventilation, I advise transfer to a tertiary care center. Awaiting response from [facility] at this time. Subjective Interval history since last seen: Denies pain No new SOB or cough No bowel activity Exam Narrative Exam Narrative: Alert Lungs with decreased breath sounds at bases due to poor inspiration but wheezing has improved Heart RRR Abdomen with stable epigastric tenderness, no peritonitis Objective Objective Clinical Data: Abnormal lab results 04/20/19 04/20/19 Range/Units 06:30 06:30 RBC 3.94 L (4.50-6.00) m/cumm Hgb 11.4 L (13.5-17.5) g/dL Hct 36.4 L (40.0-50.0) % MCHC 31.3 L (32.0-36.0) g/dL RDW 14.4 H (11.8-14.1) % Absolute Neutrophils 8.16 H (1.2-6.7) k/cumm Absolute Lymphocytes 0.82 L (1.2-3.4) k/cumm Anion Gap 12.4 H (3-11) mmol/L Glucose 134 H (70-100) mg/dL AST 13 L (15-37) U/L Albumin 2.4 L (3.4-5.0) g/dL Vital Signs Temperature 99.0 F 04/20/19 08:25 Temperature Source Tympanic 04/20/19 08:25 Pulse 76 04/20/19 08:25 Pulse Rhythm Regular 04/19/19 19:30 Pulse 67 04/17/19 19:21 Respiratory Rate 18 04/20/19 08:25 Respiratory Effort 04/19/19 19:30 Respiratory Depth Shallow 04/19/19 19:30 Respiratory Pattern Tachypnea 04/19/19 19:30 Blood Pressure 131/76 04/20/19 08:25 Blood Pressure Mean 58 04/17/19 19:20 Pulse Oximetry 94 L 04/20/19 08:25 Oxygen Delivery Method Nasal Cannula 04/20/19 08:25 Oxygen Flow Rate 2 04/20/19 08:25 Pain Level 0 04/20/19 03:40 Comment 04/20/19 03:40 Intake & Output 04/19/19 04/19/19 04/20/19 11:59 23:59 11:59 Intake Total 1078.75 / 1578.75 500 / 1578.75 517.5 / 517.5 Output Total 1050 / 1550 500 / 1550 600 / 600 Balance 28.75 / 28.75 0 / 28.75 -82.5 / -82.5 Weight 291 lb 14.272 oz 291 lb 7.218 oz Intake: IV 1078.75 / 1578.75 500 / 1578.75 517.5 / 517.5 Oral 0 / 0 Output: Urine 1050 / 1550 500 / 1550 600 / 600 Other: Urine Color Dark Little Dark Little Dark Little [place] Urine Appearance Clear Clear Urine Odor Normal Comment concentrated urine Stool Size Moderate Moderate Stool Characteristics Soft Liquid Formed Brown Voiding Methods Toilet Toilet Toilet Laboratory Results WBC 9.80 k/cumm (4.4-10.8) 04/20/19 06:30 RBC 3.94 m/cumm (4.50-6.00) L 04/20/19 06:30 Hgb 11.4 g/dL (13.5-17.5) L 04/20/19 06:30 Hct 36.4 % (40.0-50.0) L 04/20/19 06:30 MCV 92.4 fL (80-95) 04/20/19 06:30 MCH 28.9 pg (27.0-33.0) 04/20/19 06:30 MCHC 31.3 g/dL (32.0-36.0) L 04/20/19 06:30 RDW 14.4 % (11.8-14.1) H 04/20/19 06:30 Plt Count 224 x1000/uL (130-400) 04/20/19 06:30 MPV 9.9 fL (8.0-11.0) 04/20/19 06:30 Immature Gran % 0.2 04/20/19 06:30 83.3 04/20/19 06:30 8.4 04/20/19 06:30 6.7 04/20/19 06:30 1.3 04/20/19 06:30 0.1 04/20/19 06:30 Absolute Neutrophils 8.16 k/cumm (1.2-6.7) H 04/20/19 06:30 Absolute Lymphocytes 0.82 k/cumm (1.2-3.4) L 04/20/19 06:30 Absolute Monocytes 0.66 k/cumm (0.11-0.7) 04/20/19 06:30 Absolute Eosinophils 0.13 k/cumm (0.0-0.7) 04/20/19 06:30 Absolute Basophils 0.01 k/cumm (0.0-0.2) 04/20/19 06:30 Sample Site Right radial 04/18/19 15:12 pCO2 37 mmHg (34-47) 04/18/19 15:12 pO2 58 mmHg (83-108) L 04/18/19 15:12 O2 Saturation 93 % (94-98) L 04/18/19 15:12 ABG pH 7.45 (7.35-7.45) 04/18/19 15:12 ABG HCO3 25 mmol/L (22-28) 04/18/19 15:12 ABG Total CO2 23 mmol/L (22-29) 04/18/19 15:12 ABG Base Excess 1.1 mmol/L (-3-3) 04/18/19 15:12 21 % 04/18/19 15:12 Sodium 139 mmol/L (136-145) 04/20/19 06:30 Potassium 3.6 mmol/L (3.5-5.1) 04/20/19 06:30 Chloride 103 mmol/L (98-107) 04/20/19 06:30 Carbon Dioxide 23.6 mmol/L (21.0-32.0) 04/20/19 06:30 12.4 mmol/L (3-11) H 04/20/19 06:30 BUN 15 mg/dL (7-18) 04/20/19 06:30 0.88 mg/dL (0.70-1.30) 04/20/19 06:30 >= 60.00 (mL/min/1.73m2) 04/20/19 06:30 Glucose 134 mg/dL (70-100) H 04/20/19 06:30 0.9 mmol/L (0.6-1.4) 04/18/19 15:25 Calcium 8.7 mg/dL (8.5-10.1) 04/20/19 06:30 Magnesium 2.2 mg/dL (1.8-2.4) 04/20/19 06:30 0.7 mg/dL (0.2-1.0) 04/20/19 06:30 AST 13 U/L (15-37) L 04/20/19 06:30 ALT 22 U/L (16-63) 04/20/19 06:30 96 U/L (46-116) 04/20/19 06:30 < 0.05 ng/mL (0.00-0.06) 04/18/19 15:25 NT-Pro-B Natriuret Pep 58 pg/mL (-299) 04/18/19 15:25 7.6 g/dL (6.4-8.2) 04/20/19 06:30 2.4 g/dL (3.4-5.0) L 04/20/19 06:30 53 U/L (73-393) L 04/18/19 06:10 Little (Yellow) 04/17/19 20:34 Clear (Clear) 04/17/19 20:34 7.5 (5-8) 04/17/19 20:34 Ur Specific [place] 1.010 (1.005-1.025) 04/17/19 20:34 30 mg/dL (Negative) H 04/17/19 20:34 Negative mg/dL (Negative) 04/17/19 20:34 Negative (Negative) 04/17/19 20:34 Negative (Negative) 04/17/19 20:34 Negative (Negative) 04/17/19 20:34 4.0 EU/dL (Up TO 0.2) H 04/17/19 20:34 Ur Leukocyte Esterase Negative (Negative) 04/17/19 20:34 Negative (0-2) 04/17/19 20:34 0-2 HPF (0-5) 04/17/19 20:34 Ur Epithelial Cells Rare HPF (Negative) 04/17/19 20:34 Negative HPF (Negative) 04/17/19 20:34 Negative HPF (Negative) 04/17/19 20:34 Negative LPF (Negative) 04/17/19 20:34 Negative (Negative) 04/17/19 20:34 Rare spermatozoa (Negative) 04/17/19 20:34 Ur Culture Indicated? No 04/17/19 20:34 Negative mg/dL (Negative) 04/17/19 20:34
--- NOTE | 2019-04-20 10:22 | DSE_ITS ---
Date of service: 04/20/19 Time of Service: 10:23 DS: Diagnosis Discharge Diagnosis (1) Obstructive sleep apnea: Status: Suspected (2) Pulmonary hypertension: Status: Acute (3) COPD (chronic obstructive pulmonary disease): Status: Acute (4) Cardiomyopathy: Status: Acute (5) Perforated gastric ulcer: Status: Acute Discharge Plan Disposition Patient Disposition: [facility] Condition: Fair Discharge Details Chief Complaint: Abd Prob Clinical Impression: Abdominal fluid collection, Fever Reason For Visit: Perforated gastric ulcer Admit Date/Time: 04/17/19 18:58 Admit Provider: Wilda Wright Attending Provider: Wilda Wright Primary Care Provider: Stanford Chu ED Provider: Cris Flower Hospital Course Hospital Course: This patient presented to the emergency department on the day of admission with a 24-hour history of epigastric pain. He noted no fever, no vomiting or hematemesis, no bloody or black stools. He has no prior history of peptic ulcer disease. CT scan of the abdomen showed a fluid collection adjacent to the stomach of uncertain etiology. The working diagnosis was a perforated ulcer that had sealed. We initially managed him nonsurgically with antibiotics and antacids. He also was noted to have significant wheezing and some respiratory distress so internal medicine was consulted. The patient did improve with inhaled steroids and albuterol. He had a echocardiogram performed which showed an EF of 50% and some moderate pulmonary hypertension. The patient also responded to some Lasix. During his hospitalization he did have a low-grade temperature with it being 99 the morning of transfer. He had a follow-up CT scan of the abdomen pelvis that showed slight worsening of the fluid collection also with a small droplet of air contained in the lesser sac. This suggests the ulcer will not respond to nonsurgical management. Due to his significant comorbidities with the likely need for prolonged postoperative mechanical ventilation it was decided to transfer the patient to a tertiary care center. Home Meds and New Rx's Prescriptions: Continued risperidone 3 MG tablet 2 mg PO DAILY RF: 0 fluoxetine 20 MG capsule 60 mg PO DAILY RF: 0 tramadol 50 MG tablet 50 mg PO TID PRN PRNQty: 14 RF: 0 simvastatin 10 mg Tablet 10 mg PO DAILY RF: 0 metoprolol tartrate 25 mg Tablet 25 mg PO DAILY RF: 0 mirtazapine 7.5 mg Tablet 7.5 mg PO QHS RF: 0 melatonin 5 mg Tablet 5 mg PO HS RF: 0 Discharge Instructions Stand Alone Forms: Nursing Discharge Form Activity:: Activity as Tolerated Diet:: NPO Discharge Orders Discharge Orders: Discharge Order (Routine); Ordered 04/20/19 Ordered By: Wilda Wright DS: Data Vitals/I&O Vitals and I&O: Vital Signs Temperature 99.0 F 04/20/19 08:25 Temperature Source Tympanic 04/20/19 08:25 Pulse 76 04/20/19 08:25 Pulse Rhythm Regular 04/19/19 19:30 Pulse 67 04/17/19 19:21 Respiratory Rate 18 04/20/19 08:25 Respiratory Effort 04/19/19 19:30 Respiratory Depth Shallow 04/19/19 19:30 Respiratory Pattern Tachypnea 04/19/19 19:30 Blood Pressure 131/76 04/20/19 08:25 Blood Pressure Mean 58 04/17/19 19:20 Pulse Oximetry 94 L 04/20/19 08:25 Oxygen Delivery Method Nasal Cannula 04/20/19 08:25 Oxygen Flow Rate 2 04/20/19 08:25 Pain Level 0 04/20/19 03:40 Comment 04/20/19 03:40 Intake & Output 04/19/19 04/19/19 04/20/19 11:59 23:59 11:59 Intake Total 1078.75 / 1578.75 500 / 1578.75 517.5 / 517.5 Output Total 1050 / 1550 500 / 1550 600 / 600 Balance 28.75 / 28.75 0 / 28.75 -82.5 / -82.5 Weight 291 lb 14.272 oz 291 lb 7.218 oz Intake: IV 1078.75 / 1578.75 500 / 1578.75 517.5 / 517.5 Oral 0 / 0 Output: Urine 1050 / 1550 500 / 1550 600 / 600 Other: Urine Color Dark Little Dark Little Dark Little [place] Urine Appearance Clear Clear Urine Odor Normal Comment concentrated urine Stool Size Moderate Moderate Stool Characteristics Soft Liquid Formed Brown Voiding Methods Toilet Toilet Toilet Labs on day of discharge: Labs from last 24 hours 04/20/19 04/20/19 06:30 06:30 WBC 9.80 RBC 3.94 L Hgb 11.4 L Hct 36.4 L MCV 92.4 MCH 28.9 MCHC 31.3 L RDW 14.4 H Plt Count 224 MPV 9.9 Immature Gran % 0.2 Neutrophils % 83.3 Lymphocytes % 8.4 Monocytes % 6.7 Eosinophils % 1.3 Basophils % 0.1 Absolute Neutrophils 8.16 H Absolute Lymphocytes 0.82 L Absolute Monocytes 0.66 Absolute Eosinophils 0.13 Absolute Basophils 0.01 Sodium 139 Potassium 3.6 Chloride 103 Carbon Dioxide 23.6 Anion Gap 12.4 H BUN 15 Creatinine 0.88 Estimated GFR/1.73 m2 >= 60.00 Glucose 134 H Calcium 8.7 Magnesium 2.2 Total Bilirubin 0.7 AST 13 L ALT 22 Alkaline Phosphatase 96 Total Protein 7.6 Albumin 2.4 L Preliminary micro results at discharge 04/17/19 17:03 Blood Culture - Preliminary Blood NO GROWTH 48 HOURS 04/17/19 16:55 Blood Culture - Preliminary Blood NO GROWTH 48 HOURS PFSH Medical History Cardiomyopathy (Acute) EF 55% per echo in 11/2016, 41% per MPI in 08/2016. COPD (chronic obstructive pulmonary disease) (Acute) Non-oxygen dependent Depression (Chronic) Hearing loss in right ear (Acute) History of suicide attempt (Acute) Hyperlipidemia (Acute) Insomnia (Acute) Nightmares (Acute) Obesity (Chronic) Obstructive sleep apnea (Suspected) Suspected - the patient has never heard of this diagnosis, he states; he was ordered a sleep study in 12/2018, we are procuring results Pulmonary hypertension (Acute) mild per echo in 2016 Vitamin D deficiency (Acute) Surgical History Colonoscopy - MAC (12/23/16) History of ear surgery (Acute) Family History Father Stroke Mother Liver cancer Social History Smoking/Tobacco Use Status: Current every day Alcohol Intake: never Drug use: Never Do you feel safe at home: Yes Do you feel safe in your relationship?: Yes
[2019-04-20] MEDS: Pantoprazole 40 MG VIAL 80 MG IVP (10:29)
[2019-04-20] MEDS: Normal Saline Flush 10 ML SYR IVP (10:30)
--- NOTE | 2019-04-20 10:41 | PDOC.CMDIS ---
- If Service Date Differs Date of service: 04/20/19 Time of Service: 10:41 LACE Index Scoring Tool - Questions: Length of Stay (in days): 4 - 6 Acuity (Admit via E.D.?): Yes E.D. Visits: 1 - Answers: Total Score: 8 Risk of Readmission: Low Risk Care Management Discharge Reason for Hospitalization: Abdominal fluid collection, fever Discharge Plan: Doug is transferring to [facility]. He will be transported by EMS. CM talked with him about the plan, which he was aware of. He expressed that he was hungry, but he is still NPO. Doug told CM he was feeling much better today. Patient/Family Education Needs: Review of transfer process. - MH Services (Omit if N/A) Current MH Services: [employer]IST Referred to Internal [facility] (ED embedded) telephonic nurse case manager?: No
--- NOTE | 2019-04-20 11:46 | PGE_ITS ---
Date of Service Date of service: 04/20/19 Time of Service: 10:00 Assessment and Plan (1) Intraabdominal fluid collection: Current visit: No Status: Acute now with perforation. Abscesses vs perforated peptic ulcers, not clear whether this has anything to do with the foreign body which is now in the cecum. Patient is on imipenem, H/H is stable. I agree with the decision to transfer to a tertiary care facility as the patient requires surgery to treat his abscesses vs peptic ulcers, which is high risk due to his overall comorbidities. The patient would benefit from having clearance by pulmonology and may have a complicated post-op course due to his likely MARCK, LLL PNA, COPD in acute exacerbation, pulmonary hypertension. (2) Respiratory distress: Current visit: No Status: Acute Improving - definitely less wheezing today. Multifactorial: iatrogenic CHF and COPD exacerbation, LLL PNA. -continue primaxin -Continue duonebs, prn albuterol, symbicort -pulmonary hypertension might be contributing to patient getting easily fluid overloaded -gentle IVF only (3) Cardiomyopathy: Current visit: No Status: Acute EF 50-55%. As above (4) COPD (chronic obstructive pulmonary disease): Current visit: No Status: Acute Acute on chronic; as above (5) Obstructive sleep apnea: Current visit: No Status: Suspected Would benefit from pulmonology clearance and close follow up post-op (6) Pulmonary hypertension: Current visit: No Status: Acute Moderate by echo. If the patient has not yet had the sleep study, it is clear to me that in December sleep evaluation did recommend it and the patient should follow up to complete it. Meanwhile, this patient likely gets easily fluid overloaded due to this pulmonary hypertension. Subjective Interval history since last seen: Doug states everything feels better today. He states that, unless he is touching his abdomen, he does not have any abdominal pain. He denies dizziness, chest pain, shortness of breath, nausea, vomiting. He has not yet had a BM, per him. His imaging this morning revealed stable perigastric fluid collections with concern for abscesses vs perforated peptic ulcer, in addition to having a small amount of perigastric pneumoperitoneum. Dr Wright made arrangements to have [place] [facility] [place] this time, he is awaiting transfer. Exam Narrative Exam Narrative: General: Obese middle-aged male, A&Ox3, sitting in a chair, does actually look better. HEENT: EOMI, MMM, thrush Cardiovascular: RRR, no m/r/g Lungs: Quiet expiratory wheezing B - much better than the 2 prior days Gastrointestinal: abdomen is soft, more distened today, I feel, still very tender in epigastrium and LUQ, again surprising the patient (he is not aware of this pain at rest) Extremities: Trace edema BLE's, symmetric, no c/c Objective Objective Clinical Data: Abnormal lab results 04/20/19 04/20/19 Range/Units 06:30 06:30 RBC 3.94 L (4.50-6.00) m/cumm Hgb 11.4 L (13.5-17.5) g/dL Hct 36.4 L (40.0-50.0) % MCHC 31.3 L (32.0-36.0) g/dL RDW 14.4 H (11.8-14.1) % Absolute Neutrophils 8.16 H (1.2-6.7) k/cumm Absolute Lymphocytes 0.82 L (1.2-3.4) k/cumm Anion Gap 12.4 H (3-11) mmol/L Glucose 134 H (70-100) mg/dL AST 13 L (15-37) U/L Albumin 2.4 L (3.4-5.0) g/dL Vital Signs Temperature 36.9 C 04/20/19 11:17 Temperature Source Tympanic 04/20/19 11:17 Pulse 67 04/20/19 11:20 Pulse Rhythm Regular 04/20/19 08:00 Pulse 67 04/17/19 19:21 Respiratory Rate 20 04/20/19 11:20 Respiratory Effort 04/20/19 08:00 Respiratory Depth Shallow 04/20/19 08:00 Respiratory Pattern Tachypnea 04/20/19 08:00 Blood Pressure 128/76 04/20/19 11:17 Blood Pressure Mean 58 04/17/19 19:20 Pulse Oximetry 97 04/20/19 11:20 Oxygen Delivery Method Nasal Cannula 04/20/19 11:17 Oxygen Flow Rate 2 04/20/19 11:17 Pain Level 0 04/20/19 03:40 Comment 04/20/19 03:40 Intake & Output 04/19/19 04/19/19 04/20/19 11:59 23:59 11:59 Intake Total 1078.75 / 1578.75 500 / 1578.75 1070.0 / 1070.0 Output Total 1050 / 1550 500 / 1550 1100 / 1100 Balance 28.75 / 28.75 0 / 28.75 -30.0 / -30.0 Weight 132.4 kg 132.2 kg Intake: IV 1078.75 / 1578.75 500 / 1578.75 1020.0 / 1020.0 Oral 0 / 0 50 / 50 Output: Urine 1050 / 1550 500 / 1550 1000 / 1000 Stool 100 / 100 Other: Urine Color Dark Little Dark Little Dark Little [place] Urine Appearance Clear Clear Urine Odor Normal Comment concentrated urine concentrated urine Stool Size Moderate Moderate Stool Characteristics Soft Liquid Liquid Formed Brown Brown Voiding Methods Toilet Toilet Toilet Laboratory Results WBC 9.80 k/cumm (4.4-10.8) 04/20/19 06:30 RBC 3.94 m/cumm (4.50-6.00) L 04/20/19 06:30 Hgb 11.4 g/dL (13.5-17.5) L 04/20/19 06:30 Hct 36.4 % (40.0-50.0) L 04/20/19 06:30 MCV 92.4 fL (80-95) 04/20/19 06:30 MCH 28.9 pg (27.0-33.0) 04/20/19 06:30 MCHC 31.3 g/dL (32.0-36.0) L 04/20/19 06:30 RDW 14.4 % (11.8-14.1) H 04/20/19 06:30 Plt Count 224 x1000/uL (130-400) 04/20/19 06:30 MPV 9.9 fL (8.0-11.0) 04/20/19 06:30 Immature Gran % 0.2 04/20/19 06:30 83.3 04/20/19 06:30 8.4 04/20/19 06:30 6.7 04/20/19 06:30 1.3 04/20/19 06:30 0.1 04/20/19 06:30 Absolute Neutrophils 8.16 k/cumm (1.2-6.7) H 08/29/19 06:30 Absolute Lymphocytes 0.82 k/cumm (1.2-3.4) L 04/20/19 06:30 Absolute Monocytes 0.66 k/cumm (0.11-0.7) 04/20/19 06:30 Absolute Eosinophils 0.13 k/cumm (0.0-0.7) 04/20/19 06:30 Absolute Basophils 0.01 k/cumm (0.0-0.2) 04/20/19 06:30 Sample Site Right radial 04/18/19 15:12 pCO2 37 mmHg (34-47) 04/18/19 15:12 pO2 58 mmHg (83-108) L 04/18/19 15:12 O2 Saturation 93 % (94-98) L 04/18/19 15:12 ABG pH 7.45 (7.35-7.45) 04/18/19 15:12 ABG HCO3 25 mmol/L (22-28) 04/18/19 15:12 ABG Total CO2 23 mmol/L (22-29) 04/18/19 15:12 ABG Base Excess 1.1 mmol/L (-3-3) 04/18/19 15:12 21 % 04/18/19 15:12 Sodium 139 mmol/L (136-145) 04/20/19 06:30 Potassium 3.6 mmol/L (3.5-5.1) 04/20/19 06:30 Chloride 103 mmol/L (98-107) 04/20/19 06:30 Carbon Dioxide 23.6 mmol/L (21.0-32.0) 04/20/19 06:30 12.4 mmol/L (3-11) H 04/20/19 06:30 BUN 15 mg/dL (7-18) 04/20/19 06:30 0.88 mg/dL (0.70-1.30) 04/20/19 06:30 >= 60.00 (mL/min/1.73m2) 04/20/19 06:30 Glucose 134 mg/dL (70-100) H 04/20/19 06:30 0.9 mmol/L (0.6-1.4) 04/18/19 15:25 Calcium 8.7 mg/dL (8.5-10.1) 04/20/19 06:30 Magnesium 2.2 mg/dL (1.8-2.4) 04/20/19 06:30 0.7 mg/dL (0.2-1.0) 04/20/19 06:30 AST 13 U/L (15-37) L 04/20/19 06:30 ALT 22 U/L (16-63) 04/20/19 06:30 96 U/L (46-116) 04/20/19 06:30 < 0.05 ng/mL (0.00-0.06) 04/18/19 15:25 NT-Pro-B Natriuret Pep 58 pg/mL (-299) 04/18/19 15:25 7.6 g/dL (6.4-8.2) 04/20/19 06:30 2.4 g/dL (3.4-5.0) L 04/20/19 06:30 53 U/L (73-393) L 04/18/19 06:10 Little (Yellow) 04/17/19 20:34 Clear (Clear) 04/17/19 20:34 7.5 (5-8) 04/17/19 20:34 Ur Specific [place] 1.010 (1.005-1.025) 04/17/19 20:34 30 mg/dL (Negative) H 04/17/19 20:34 Negative mg/dL (Negative) 04/17/19 20:34 Negative (Negative) 04/17/19 20:34 Negative (Negative) 04/17/19 20:34 Negative (Negative) 04/17/19 20:34 4.0 EU/dL (Up TO 0.2) H 04/17/19 20:34 Ur Leukocyte Esterase Negative (Negative) 04/17/19 20:34 Negative (0-2) 04/17/19 20:34 0-2 HPF (0-5) 04/17/19 20:34 Ur Epithelial Cells Rare HPF (Negative) 04/17/19 20:34 Negative HPF (Negative) 04/17/19 20:34 Negative HPF (Negative) 04/17/19 20:34 Negative LPF (Negative) 04/17/19 20:34 Negative (Negative) 04/17/19 20:34 Rare spermatozoa (Negative) 04/17/19 20:34 Ur Culture Indicated? No 04/17/19 20:34 Negative mg/dL (Negative) 04/17/19 20:34 CT abdomen and pelvis: 1. Stable perigastric fluid collection suspicious for abscesses 2. Stable small focus of extraluminal air interposed between the lesser sac abscess and stomach 3. Distal migration of the intraluminal foreign body which now lies within the cecum
== END 2019-04-20 11:24 | disposition short-term general hospital (02) | DRG 381 ==
LOC: ER 19:03 → MS 04-18 08:17
PROVIDERS: Internal Medicine; Admitting Provider Surgery; Emergency Provider Physician Assistant; PCP Specialist/Technologist Athletic Trainer; Visit Provider Surgery
DX: K25.1 Acute gastric ulcer with perforation (principal); I42.9 Cardiomyopathy, unspecified; R06.03 Acute respiratory distress; G47.33 Obstructive sleep apnea (adult) (pediatric); J44.9 Chronic obstructive pulmonary disease, unspecified; I27.23 Pulmonary hypertension due to lung diseases and hypoxia; F17.210 Nicotine dependence, cigarettes, uncomplicated
CPT/HCPCS: 36410; 36415; 74177; 80048; 80053; 82805; 83690; 87040; 93005; 93306; 94640; 96361; 96365; 99220; 99223; 99232; 99233; 99239; 99255; 99285; NC; 36600; 71045; 81003; 81015; 83605; 83735; 83880; 84484; 85025; 93010; 99215; G0378; J0743; J1941; J2543; J3490; J7613; J7620; Q9967

== ENCOUNTER → 2019-05-29 15:04 | Outpatient (BNVA) | payer MEDICARE, SELFPAY | PROVIDERS: PCP Specialist/Technologist Athletic Trainer; Referring Provider Specialist/Technologist Athletic Trainer; Visit Provider Surgery | DX: K25.5 Chronic or unspecified gastric ulcer with perforation (principal) | CPT/HCPCS: 99214 ==

== ENCOUNTER 2019-06-02 08:20 | Day surgery (SDC) | payer MEDICARE, SELFPAY ==
[2019-06-02 08:31] VITALS: BP 139/71; PULSE 57; RESP 20; TEMP 36.8; O2SAT 94
[2019-06-02 09:35] VITALS: RESP 2
[2019-06-02] MEDS: Albuterol/Ipratropium 3 ML UPD VIAL UPD (09:35)
--- NOTE | 2019-06-02 11:25 | ANES_ITS ---
Date of service: 06/02/19 Time of Service: 11:25 Anesthesia Note Report Anesthesia Note: Requested to see patient from DSU RN for respiratory concerns. Doug is a 54yo man with a history of moderate to severe COPD not responsive to bronchodilators per his 2017 PFT's. He was recently seen for other issues and admitted as an inpatient with notes referencing him needing to followup with his primary care or crystal inspector given concerns for his respiratory exam. Today he presents for his EGD with pursed lip breathing, loud audible rhonchi/inspiratory and expiratory wheezes, he is tachypneic and is maintaining SpO2 94%. He states this is how he normally breathes, denies any chest discomfort. He denies recent fever or chills and does states he last took his albuterol MDI last night. Despite urging him to be seen in the ED, he declines. He will followup with his PCP and the surgeons office will also call his PCP office to make sure he is contacted for an appointment. He has been given 1 duoneb with noted improvement in respiratory rate, decreased pursed lip breathing and breathsounds still with audible wheezes, but much quieter now. He does state his breathing feels better and more comfortable, although he does deny feeling short of breath before, although he may not be a great historian. This elective procedure will be postponed until his pulmonary function is optimized by his PCP or pulmonology and or new PFT's are performed.
== END 2019-06-02 10:00 | disposition home or self-care (01) ==
LOC: SUR 08:20
PROVIDERS: PCP Specialist/Technologist Athletic Trainer; Visit Provider Surgery
DX: K25.5 Chronic or unspecified gastric ulcer with perforation (principal); Z53.09 Procedure and treatment not carried out because of other contraindication; J44.9 Chronic obstructive pulmonary disease, unspecified
CPT/HCPCS: 94640; J7620

== ENCOUNTER 2020-12-13 15:05 | Outpatient (REF) | payer MEDICARE, SELFPAY ==
[2020-12-13 14:58] LABS: HCT 40.3 % (40.0-50.0); HGB 13.5 g/dL (13.5-17.5); MCHC 33.5 % (32.0-36.0); MCV 86.5 fL (80-95); MPV 9.6 fL (8.0-11.0); Platelet Count 211 10^3/uL (130-400); RBC 4.66 10^6/uL (4.36-5.78); RDW 13.3 % (11.8-14.1); RDW-SD 42.5 fL; WBC 5.58 10^3/uL (4.4-10.8)
[2020-12-13 15:12] LABS: Hemoglobin A1C 6.5 % (<5.7)
[2020-12-13 15:17] LABS: Anion Gap 6.7 mmol/L (3-11); BUN 11 mg/dL (7-18); CO2 30.3 mmol/L (21.0-32.0); CREATININE 1.1 mg/dL (0.70-1.30); Calcium 8.9 mg/dL (8.5-10.1); Chloride 104 mmol/L (98-107); Cholesterol 182 mg/dL (<200); Glucose 129 mg/dL (74-106); HDL Cholesterol 34 mg/dL (40-60); Sodium 141 mmol/L (136-145); Triglyceride 439 mg/dL (<150)
[2020-12-13 15:49] LABS: LDL CHOLESTEROL 88 mg/dL (<100)
== END 2020-12-13 15:06 | disposition home or self-care (01) ==
LOC: NCHCN 15:05
PROVIDERS: PCP Specialist/Technologist Athletic Trainer; Visit Provider Nurse Practitioner Family
DX: E78.5 Hyperlipidemia, unspecified (principal); R73.03 Prediabetes; R10.13 Epigastric pain; Z51.81 Encounter for therapeutic drug level monitoring
CPT/HCPCS: 80048; 80061; 83721; 85027; 83036

== ENCOUNTER → 2020-12-20 03:05 | Outpatient (CLI) | payer MEDICARE, SELFPAY ==
--- NOTE | 2020-12-20 | DI.CTLCSR_ITS ---
Exam(s) CT CHEST LUNG CANCER SCREEN EXAM: CT CHEST LUNG CANCER SCREEN CLINICAL HISTORY: SCREENING FOR LUNG CA, CURRENT SMOKER, F17.210 TECHNIQUE: Imaging Protocol: Axial computed tomography images with coronal and sagittal reformatted images were created and reviewed COMPARISON: CT CT thorax abd/pel CTA from 04/17/2019 FINDINGS: Tracheobronchial tree: Patent where visualized. Pulmonary parenchyma: No consolidation or dominant measurable mass. No architectural distortion. Lung Nodules: None. Mediastinum and Sherry: No dominant adenopathy or fluid collection. Pleura: No effusion or pneumothorax. Heart: The heart is not dilated. No coronary artery calcifications are seen. No pericardial effusion . Aorta: Thoracic aorta non-dilated. Upper abdomen: Unremarkable. Soft Tissues: Bilateral gynecomastia. Bones: There is a subacute mildly displaced fracture of the lateral aspect of the right 5th rib. IMPRESSION: 1. No pulmonary nodules. 2. Subacute mildly displaced fracture involving the lateral aspect of the right 5th rib. Lung RADS Cat 1 - Negative: No nodules and definitely benign nodules Lung-RADS 1.0 CATEGORIES: Category 0 - Prior chest CT exam(s) being located for comparison. Category 1 - Annual screening in 12 months. No nodules or definitely benign nodules. Category 2 - Annual screening in 12 months. Benign appearance. Nodules with low likelihood of becomin g active cancer. Category 3 - 6-month follow-up. Probably benign. Short-term follow-up suggested. Nodules with low lik elihood of becoming active cancer. Category 4A - 3-month follow-up and CT/PET if >8 mm in size. Suspicious finding. Findings which requi re additional testing. Category 4B - Findings which require additional testing and tissue sampling. Suspicious finding. Modifier S- Potentially clinically significant finding. (Non lung cancer) Incidental Findings RADIATION DOSE DELIVERED: 84.11mGy.cm Total DLP 84.11mGy.cm Total DLP 1.84mGy CTDIvol DATA REPOSITORY: All CT scans at this facility are submitted to the National Radiology Data Registry (NRDR) Dose Index Registry (DIR) with the [employer] (ACR). RADIATION OPTIMIZATION: All CT scans at this facility use at least one of these dose optimization te chniques: automated exposure control; mA and/or kV adjustment per patient size (includes targeted exa ms where dose is matched to clinical indication); or iterative reconstruction.
--- NOTE | 2020-12-20 10:45 | DI.RAD_ITS ---
Exam(s) XR CHEST 2V PA LATERAL EXAM: XR CHEST 2V PA LATERAL CLINICAL HISTORY: sob, COPD, PULMONARY HTN, CARDIOMYOPATHY, MARCK, I27.20, J44.9, I42.9, G47.33 TECHNIQUE: 2D digital imaging was performed. COMPARISON: No exams were available for comparison FINDINGS: MEDIASTINUM: Normal. HEART: Normal. PULMONARY VASCULATURE: Normal. LUNGS: Clear. PLEURAL SPACE: No pleural effusion or pneumothorax. BONE:Within normal limits for the patient's age. OTHER FINDINGS:Normal. IMPRESSION: No acute pulmonary findings. DATA REPOSITORY: RADIATION DOSE DELIVERED:
== END ==
PROVIDERS: PCP Nurse Practitioner Family; Visit Provider Nurse Practitioner Family
DX: Z12.2 Encounter for screening for malignant neoplasm of respiratory organs (principal); F17.210 Nicotine dependence, cigarettes, uncomplicated; I27.20 Pulmonary hypertension, unspecified; G47.33 Obstructive sleep apnea (adult) (pediatric); S22.31XA Fracture of one rib, right side, initial encounter for closed fracture; R06.02 Shortness of breath; J44.9 Chronic obstructive pulmonary disease, unspecified
CPT/HCPCS: 71271; 71046

== ENCOUNTER 2020-12-26 03:38 | Outpatient (CLI) | payer MEDICARE, SELFPAY ==
[2020-12-26] MEDS: Albuterol HFA 18 GM 200 PUFF INH IH (15:06)
[2020-12-26] MEDS: Inhaler, Assist Device 1 EACH MC (15:06)
--- NOTE | 2020-12-31 19:41 | W.PFT ---
Date of service: 12/26/20 Time of Service: 02:01 Pulmonary Function Test Result Interpretation Spirometry: Mild obstructive airways disease with significant bronchodilator response Lung Volumes: No evidence of restriction Diffusion Capacity: Borderline mildly reduced, this is normal when corrected to alveolar volume Airway Pressure: Elevated Impression Mild obstructive airways disease associated with significant bronchodilator response. When the study was compared to previous one from 11/26/2016, there is a 1090 cc decline in FVC, FEV1 has declined by 540 cc Clinical Correlation therefore is recommended.
== END 2020-12-26 03:39 | disposition home or self-care (01) ==
LOC: RT 03:38
PROVIDERS: PCP Nurse Practitioner Family; Visit Provider Surgery
DX: G47.33 Obstructive sleep apnea (adult) (pediatric) (principal); Z01.811 Encounter for preprocedural respiratory examination; I27.20 Pulmonary hypertension, unspecified; J44.9 Chronic obstructive pulmonary disease, unspecified; I42.9 Cardiomyopathy, unspecified
CPT/HCPCS: 94060; 94726; 94729

== ENCOUNTER → 2021-01-02 01:11 | Outpatient (CLI) | payer MEDICARE, SELFPAY ==
--- NOTE | 2021-01-02 07:30 | DI.US_ITS ---
APPROVED REPORT EXAM: Comprehensive 2D, Doppler, and color-flow Echocardiogram Patient Location: Out-Patient Machinist General: Yissel Irwin RDCS (AE) Indications: SOB, Sleep apnea, Pulmonary HTN, COPD, Pre op Cardiomyopathy Other Information Study Quality: Fair. Technically limited study due to body habitus. Conclusion Left Ventricle : Left ventricle is mildly dilated. The left ventricular systolic function is normal. The left ventricular ejection fraction is within the normal range. There is normal left ventricular w all thickness. There is normal LV segmental wall motion. The left ventricular diastolic function is n ormal. LVEF is 55%. Right Ventricle : Right ventricle is grossly normal in size. Right ventricular systolic function is g rossly normal. The RVSP is 34.9 mmHg. Atria : Left atrium is borderline dilated. The right atrium size is normal. Mitral Valve : Mild mitral annular calcification. Trace to mild mitral regurgitation. No evidence of mitral valve stenosis. Great Vessels : The aortic root is normal in size. The ascending aorta is mildly dilated. Aortic arch is not well visualized. IVC is normal in size and collapses >50% with inspiration. Compared to study from 04/19/2019, there is no significant change. Wall motion Left Ventricle Left ventricle is mildly dilated. The left ventricular systolic function is normal. The left ventricu lar ejection fraction is within the normal range. There is normal left ventricular wall thickness. Th ere is normal LV segmental wall motion. The left ventricular diastolic function is normal. There is n o ventricular septal defect visualized. LVEF is 55%. Right Ventricle Right ventricle is grossly normal in size. Right ventricular systolic function is grossly normal. The RVSP is 34.9 mmHg. Atria Left atrium is borderline dilated. The right atrium size is normal. The interatrial septum is intact with no evidence for an atrial septal defect. Aortic Valve The aortic valve is normal in structure. Aortic valve is trileaflet. There is no aortic valvular sten osis. Trace aortic regurgitation. Mitral Valve Mild mitral annular calcification. No evidence of mitral valve stenosis. Trace to mild mitral regurgi tation. Tricuspid Valve The tricuspid valve is normal in structure. There is no tricuspid valve stenosis. Trace to mild tricu spid regurgitation. Pulmonic Valve The pulmonary valve is normal in structure. There is no pulmonic valvular stenosis. Trace pulmonic re gurgitation. Great Vessels The aortic root is normal in size. The ascending aorta is mildly dilated. Aortic arch is not well vis ualized. IVC is normal in size and collapses >50% with inspiration. Pericardium There is no pericardial effusion. 2D Dimensions IVSD d PLAX 1.00 cm M: 0.6-1.2 LV Vol A2C d MOD 145.4 mL LVPW d PLAX 1.04 cm M: 0.6 - 1.2 LV Vol A4C d MOD 197.8 mL LVID d PLAX 6.06 cm M: 4.2 - 5.8 LA vol/ BSA A2C s A-L 27.7 mL/m2 LVDs 4.30 cm M: 2.5 - 4.0 LA vol/ BSA A4C s A-L 33.7 mL/m2 Ao Root d 3.39 cm M: 3.1 - 3.7 LA Vol/ BSA Biplane s A-L 33.6 mL/m2 RA Area A4C 16.68 cm2 LA Area A4C s MOD 24.08 cm2 RA Vol/ BSA A4C s A-L 21.5 mL/m2 LA Area A2C s MOD 19.87 cm2 Ao Asc Diam d 4.03 cm M: 2.6 - 3.4 LV EF A4C MOD 56.6 % LV EF Teichholz 53.8 % LV EF A2C MOD 55.5 % LVEF (Li's) 54.74 % M: 52 - 72 LV EF Biplane MOD 54.7 % LV Volume 120.51 mL M: 62 - 150 SV 93.48 mL LV Volume Index 49.59 mL/m2 M: 34 - 74 SV Index 38.47 mL/m2 LV Vol Biplane MOD 170.8 mL FS 28.30 % M-Mode TAPSE 2.62 cm (M/F) >1.7 LV Diastology MV E' medial 0.057 (>0.07 m/s) E/A Ratio 1.4 LV E/e MED 17.40 (<14) MV E Vmax 0.99 (0.4-1.3 m/s) MV E' lateral 0.102 (>0.1 m/s) MV A Vmax 0.70 (0.4-1.3 m/s) LV E/e LAT 9.70 (<14) MV E/A Ratio 1.41 MV E/E' medial 17.40 MV E/E' lateral 9.74 Aortic Valve LVOT Area 3.60 cm2 AoV Area Vmax 3.01 cm2 LVOT Vmax 1.39 m/s AoV Area/ BSA (Vmax) 1.24 cm2/m2 LVOT Mean Paul. 1.02 m/s LILIAN Mean Paul. 3.57 cm2 LVOT Peak Grad 7.7 mmHg LILIAN Mean Paul. Index 1.47 cm2/m2 LVOT Mean Grad 4.6 mmHg AR DT 2641 msec LVOT VTI 0.296 m AR PHT 766 msec LVOT Diam s 2.10 cm AoV Vmax 1.66 m/s Velocity Ratio 0.83 AoV Mean Paul. 1.03 m/s AoV Peak Grad 11.1 mmHg LVOT SV 106.44 mL AoV Mean Grad 4.9 mmHg AoV VTI 0.286 m AoV Area VTI 3.73 cm2 AoV Area/ BSA (VTI) 1.53 cm/m2 Mitral Valve MV DT 234 (160-240 msec) MV PHT 68 msec MV Area PHT 3.24 cm2 MV VTI 0.381 m MV VTI Annulus 0.383 m MV Area VTI 2.81 (4.0-6.0 cm2) Pulmonary Valve PV Vmax 1.03 (0.5-1.5 m/s) RVOT Peak Gr. 2.28 mmHg PV Peak Grad 4.3 mmHg RVOT Mean Gr. 1.25 mmHg PV Mean Grad 2.2 mmHg RVOT VTI 0.177 m PV VTI 0.265 m RVOT Vmax 0.75 m/s Tricuspid Valve TR Peak Grad 31.9 mmHg TR Vmax 2.83 m/s RA Pressure 3.00 mmHg RVSP (TR) 34.9 mmHg
== END ==
PROVIDERS: PCP Nurse Practitioner Family; Visit Provider Surgery
DX: R06.02 Shortness of breath (principal); G47.33 Obstructive sleep apnea (adult) (pediatric); I27.20 Pulmonary hypertension, unspecified; J44.9 Chronic obstructive pulmonary disease, unspecified; Z01.810 Encounter for preprocedural cardiovascular examination; I42.9 Cardiomyopathy, unspecified; R93.9 Diagnostic imaging inconclusive due to excess body fat of patient; I77.810 Thoracic aortic ectasia
CPT/HCPCS: 93306

== ENCOUNTER → 2021-01-30 13:38 | Outpatient (BNVA) | payer MEDICARE, SELFPAY | PROVIDERS: PCP Nurse Practitioner Family; Referring Provider Nurse Practitioner Family; Visit Provider Surgery | DX: K25.5 Chronic or unspecified gastric ulcer with perforation (principal); G47.33 Obstructive sleep apnea (adult) (pediatric); I27.20 Pulmonary hypertension, unspecified; J44.9 Chronic obstructive pulmonary disease, unspecified; I42.9 Cardiomyopathy, unspecified; F17.210 Nicotine dependence, cigarettes, uncomplicated | CPT/HCPCS: 99213; 99214 ==

== ENCOUNTER 2021-02-19 02:51 | Outpatient (CLI) | payer MEDICARE, SELFPAY ==
[2021-02-19 11:50] LABS: Source Nasal/Nares
[2021-02-19 14:11] LABS: COVID-19 PCR Negative (Negative)
== END 2021-02-19 02:52 | disposition home or self-care (01) ==
LOC: LBO 02:52
PROVIDERS: PCP Nurse Practitioner Family; Visit Provider Surgery
DX: Z20.822 Contact with and (suspected) exposure to COVID-19 (principal); Z01.818 Encounter for other preprocedural examination
CPT/HCPCS: 87635

== ENCOUNTER 2021-02-21 06:13 | Day surgery (SDC) | payer MEDICARE, SELFPAY ==
--- NOTE | 2021-02-20 23:46 | W.COLOREPORT ---
Date of service: 02/21/21 Time of Service: 09:00
--- NOTE | 2021-02-20 23:46 | W.PM.DSUDISC ---
Discharge Plan Disposition Patient Disposition: HOME Condition: Good Discharge Details Reason For Visit: home Attending Provider: Lilia Cruz Primary Care Provider: Lorraine Watson Home Meds and New Rx's Prescriptions: No Action albuterol sulfate 90 mcg/actuation aerosol powdr breath activated 2 inh inhalation Q6H PRNRF: 0 Flovent Diskus 100 mcg/actuation blister with device 1 inh inhalation Q12H RF: 0 pantoprazole [Protonix] 40 mg tablet,delayed release (DR/EC) 40 mg PO DAILY RF: 0 risperidone 3 MG tablet 2 mg PO DAILY RF: 0 fluoxetine [Prozac] 20 MG capsule 60 mg PO DAILY RF: 0 simvastatin 10 mg Tablet 10 mg PO DAILY RF: 0 metoprolol tartrate 25 mg Tablet 25 mg PO DAILY RF: 0 mirtazapine 7.5 mg Tablet 7.5 mg PO QHS RF: 0 melatonin 5 mg Tablet 5 mg PO HS RF: 0 Discharge Instructions Additional Instructions: DSU Scope Post-Op Instructions Instructions for Everyone who is given Anesthesia: For your safety, please do the following for the next twenty-four (24) hours: *Do Not operate a motor vehicle (car, truck, motorcycle, etc.) *Do Not drink alcoholic beverages or use any recreational drugs for the first 24 hours or while taking pain medications. The medications in your body may have a reaction that can be dangerous. *Do Not make any important decisions or sign any important papers. Findings: normal Follow up: continue protonix lifelong. No ASA/NSAID's, alcohol,tobacco- lifelong. avoid caffeine products, spicy foods. Dont' lie down after eating or w/ in 2 hours of bedtime. 1. No lifting over 20 pounds or strenuous activity for the first 24 hours after your procedure. After 24 hours there are no restrictions on your activity but you may feel fatigued for a few days. 2. After you arrive home you may have a light meal and return to your normal diet as you can tolerate it without feeling sick to your stomach. 3. You may have a bloated, gaseous feeling in your belly (abdomen) after a colonoscopy. Passing gas and belching will help. Walking or lying down on your left side with your knees flexed may relieve the discomfort. Call the office at [phone] (Office) or [phone] (Hospital) right away if you notice any of the following: a.Vomiting of blood or ?coffee ground stools?. b.Rectal bleeding 1Tbsp, blood clots or continuous bleeding. c.Severe belly (abdominal) pain. d.A hard distended belly (abdomen) and an inability to pass gas. 4. Please don?t expect to have a normal BM (bowel movement) for 2-3 days after your procedure. 5. If there are questions regarding the findings of your procedure, please contact your doctor 6. If you are unable to contact your doctor with a problem, contact the hospital at [phone]. 7. Continue all your regular medications unless directed otherwise. I understand the above instructions and have no questions. Signature of Patient or Adult Escort Name of Responsible Adult Escort Signature of Nurse Date/Time Activity:: see above Diet:: above Discharge Orders Discharge Orders: Discharge Order (Routine); Ordered 02/20/21 Ordered By: Lilia Cruz DS: Diagnosis Discharge Diagnosis (1) Perforated gastric ulcer: Status: Acute
[2021-02-21] VITALS (7 sets, daily range): BP systolic 112–137; BP diastolic 63–74; PULSE 48–56; RESP 2–20; TEMP 36.6; TEMPC 36.6; O2SAT 93–98; BMI 40.6
[2021-02-21] MEDS: Albuterol/Ipratropium 3 ML UPD VIAL UPD ×2 (07:25→08:23)
--- NOTE | 2021-02-21 07:50 | ANES.PREOP_ITS ---
General Info Date of Service Date Performed: 02/21/21 Height: 5 ft 8.9 in Weight: 124.6 kg Body Mass Index (BMI): 40.6 Surgical Procedure: Operation Date: 02/21/21 09:05 Proposed Procedures Side Surgeon p Gastroscopy Lilia Cruz, DO Meds Allergies and Home Medications Allergies Allergy/AdvReac Type Severity Reaction Status Date / Time No Known Allergies Allergy Unverified 02/20/21 08:40 Home Medication Medication Instructions Recorded fluoxetine [Prozac] 60 mg PO DAILY 04/26/14 risperidone 2 mg PO DAILY 04/26/14 melatonin 5 mg PO HS 04/17/19 metoprolol tartrate 25 mg PO DAILY 04/17/19 mirtazapine 7.5 mg PO QHS 04/17/19 simvastatin 10 mg PO DAILY 04/17/19 pantoprazole 40 mg tablet,delayed 40 mg PO DAILY 05/16/19 release albuterol sulfate 90 mcg/actuation 2 inh INHALATION Q6H PRN 01/30/21 breath activated powder inhaler fluticasone propionate 100 1 inh INHALATION Q12H 01/30/21 mcg/actuation blister powder for inhalation Current Visit Medications: Current Medications Generic Name Dose Route Start Last Admin Trade Name Freq PRN Reason Stop Dose Admin Albuterol/Ipratropium 3 ml 02/21/21 06:00 Albuterol/Ipratropium 3 Ml Upd Vial UPD 02/21/21 23:59 PREOP UMESH Device 1 each 02/21/21 08:00 Inhaler, Assist Device DIRECTED [facility] Hyoscyamine Sulfate 0.125 mg 02/20/21 23:45 Hyoscyamine 0.125 Mg Sl/Oral/Chew SL DIRECTED PRN Ringer's Solution 1,000 mls @ 80 mls/hr 02/21/21 06:00 IV 03/22/21 23:59 INFUSION [facility] IV Miscellaneous Supplies 1 each 02/21/21 06:00 Iv Access IV 03/22/21 23:59 DIRECTED [facility] Mometasone Furoate 1 puff 02/21/21 08:30 Mometasone 220 Mcg 14 Dose Inhaler IH BID UMESH Ondansetron HCl 4 mg 02/20/21 23:45 Ondansetron 4 Mg/2 Ml Vial IVP Q4H PRN PRN Nausea / Vomiting Sodium Chloride 0 ml 02/21/21 06:00 Normal Saline Flush 10 Ml Syr IV 03/22/21 23:59 PRN PRN Sodium Chloride 0 ml 02/21/21 06:00 Normal Saline 10 Ml Vial IJ 03/22/21 23:59 DIRECTED PRN Sterile Water 0 ml 02/21/21 06:00 Water,Injection,Sterile 10 Ml Vial IJ 03/22/21 23:59 DIRECTED PRN PFSH Active Problems Active Problems: Problem Status Onset Code Preop testing Z01.818 Intraabdominal fluid collection R18.8 Perforated gastric ulcer K25.5 Pulmonary hypertension I27.20 COPD (chronic obstructive pulmonary disease) J44.9 Cardiomyopathy I42.9 Respiratory distress R06.03 Epigastric pain R10.13 Abdominal pain R10.9 Screening for colorectal cancer Z12.11, Z12.12 Medical History Medical History Cardiomyopathy EF 55% per echo in 11/2016, 41% per MPI in 08/2016. COPD (chronic obstructive pulmonary disease) Non-oxygen dependent Depression Hearing loss in right ear History of suicide attempt Hyperlipidemia Insomnia Nightmares Obesity Obstructive sleep apnea Suspected - the patient has never heard of this diagnosis, he states; he was ordered a sleep study in 12/2018, we are procuring results Pulmonary hypertension mild per echo in 2017 Vitamin D deficiency Surgical History Surgical History Colonoscopy - MAC (12/23/16) History of ear surgery Tobacco Smoking/Tobacco Use Status: Current every day (/ ppd) Tobacco Type: cigarettes Years smoked: 40 Alcohol Alcohol Intake: never Substance Use Substance use: Never Substance use type: does not use Vital Signs and Lab Results Vital Signs Most Recent Vital Signs in EMR: Most Recent Vital Signs Temp Pulse Resp BP Pulse Ox 36.6 C 48 L 20 137/74 98 02/21/21 06:23 02/21/21 07:28 02/21/21 07:28 02/21/21 06:23 02/21/21 07:28 Lab Results Blood Type / Crossmatch: No Data to Display Complete Blood Count: No Data to Display Complete Metabolic Panel: No Data to Display Liver Function Panel: No Data to Display Coagulation Panel: No Data to Display Cardiac Panel: No Data to Display Arterial Blood Gas: No Data to Display Venous Blood Gas: No Data to Display Pancreas Panel: No Data to Display Thyroid Panel: No Data to Display Infectious Disease: Coronavirus (COVID-19)(PCR) Negative (Negative) 02/19/21 10:42 02/19/21 Coronavirus 2019 Source Nasal/Nares 02/19/21 10:42 02/19/21 Blood Cultures: No Data to Display Toxicology Panel: No Data to Display Imaging and Studies Imaging and Studies Stress Test Summary: 08/28/16 Stress results: The rate-pressure product for the peak heart rate and blood pressure was 12921ep Hg/min. Stress ECG: TREADMILL PORTION OF STRESS TEST ENDED IN 4 MINUTES AND 15 SECONDS DUE TO PATIENT FATIGUE. UNABLE TO OBTAIN TARGET HEART RATE, CONVERTED TO LEXISCAN PROTOCOL. Echocardiogram Summary: 01/02/21 Conclusion Left Ventricle : Left ventricle is mildly dilated. The left ventricular systolic function is normal. The left ventricular ejection fraction is within the normal range. There is normal left ventricular wall thickness. There is normal LV segmental wall motion. The left ventricular diastolic function is normal. LVEF is 55%. Right Ventricle : Right ventricle is grossly normal in size. Right ventricular systolic function is grossly normal. The RVSP is 34.9 mmHg. Atria : Left atrium is borderline dilated. The right atrium size is normal. Mitral Valve : Mild mitral annular calcification. Trace to mild mitral regurgitation. No evidence of mitral valve stenosis. Great Vessels : The aortic root is normal in size. The ascending aorta is mildly dilated. Aortic arch is not well visualized. IVC is normal in size and lizet apses >50% with inspiration. Compared to study from 04/19/2019, there is no significant change. Pulmonary Function Summary: Date of service: 12/26/20 Time of Service: 02:01 Pulmonary Function Test Result Interpretation Spirometry: Mild obstructive airways disease with significant bronchodilator response Lung Volumes: No evidence of restriction Diffusion Capacity: Borderline mildly reduced, this is normal when corrected to alveolar volume Airway Pressure: Elevated Impression Mild obstructive airways disease associated with significant bronchodilator response. When the study was compared to previous one from 11/26/2016, there is a 1090 cc decline in FVC, FEV1 has declined by 540 cc Clinical Correlation therefore is recommended. Anesthesia Assessment and Plan Anesthesia History Personal History: No History of Anesthesia Complications Family History: No Family History of Anesthesia Complications Exercise Tolerance Exercise Tolerance: Metabolic Equivalents>4 Pertinent Negatives Pertinent Negatives: No Symptoms of GERD, No Major Cardiovascular Symptoms or Complaints, No History of CVA/TIA and Other Cardiac & Pulmonary Exam Cardiac Exam: Normal S1/S2 Heart Sounds Pulmonary Exam: Wheezing Present (Inspiratory/ expiratory throughout) Airway Exam Known Difficult Airway: No Mallampati Class: 2 Mouth Opening: Normal (> 3cm) Thyromental Distance: Less than 3 cm Neck Range of Motion: Full ROM Neck Circumference: Thick Teeth Condition: Other (Edentulous top, very poor dentition bottom, all bottom teeth broken/rotting) ASA Classification ASA Score: ASA 3 Emergency Case?: No NPO Status NPO Status: NPO Clears >2 hours, Solids >8 hours Anesthesia Plan Resuscitation Status: Full Code Anesthesia Technique: General Anesthesia Airway Planned: Natural Airway Monitors Used: Standard Monitors
[2021-02-21] MEDS: Lactated Ringers 1,000 ML 80 ML IV (08:10)
[2021-02-21] MEDS: Mometasone 220 MCG 14 DOSE INHALER 1 PUFF IH (08:10)
--- NOTE | 2021-02-21 08:56 | STOM_PTH ---
PATIENT: Doug Smith LOC: [facility] U#:[id number] AGE/SX: 55/M ROOM: RE02/21/[address]: Lilia Cruz : 1965 BED: DIS: 02/21/2021 SPEC #: [id number] RECD: 02/21/21 13:06 STATUS: [facility] #: [id number] SOPHIE: 02/21/21 08:[address]: Lilia Cruz DEPT: Surgical Specimen RECD BY: Adela Julio ENTERED: 02/21/21 13:08 SP TYPE: STOMACH OTHR DR: Lorraine Watson Tissues: 1 - BIOPSY BOWEL 2 - BIOPSY BOWEL 3 - STOMACH BIOPSY 4 - STOMACH BIOPSY 5 - ESOPHAGUS BIOPSY 6 - ESOPHAGUS BIOPSY Procedures: GROSS AND MICRO LEVEL 4 Comments: [id number]
--- NOTE | 2021-02-21 09:06 | W.ANESPOSTOP ---
Postoperative Evaluation Date, Time and Location Date Performed: 02/21/21 Time Performed: 09:19 Patient Location: Day Surgery Unit Vital Signs Most Recent Imported Vital Signs: Most Recent Vital Signs Temp Pulse Resp BP Pulse Ox 36.6 C 48 L 20 137/74 98 02/21/21 06:23 02/21/21 07:28 02/21/21 07:28 02/21/21 06:23 02/21/21 07:28 Most Recent Manually Entered Vital Signs: Adult Blood Pressure: 112/63 Heart Rate: 56 Respirations: 14 Oxygen Saturation (%): 93 Temperature (C): 36.6 C Pain Score (0-10 Scale): 0 Pain Score Most Recent Pain Score: 0 Assessment Mental Status: Awake (Alert & Oriented to Patient Baseline) Airway and Respiratory Function: Patent airway with normal (patient baseline) respiratory exam Cardiovascular Function: Hemodynamically Stable Hydration Status: Adequately Hydrated Nausea & Vomiting: No Nausea or Vomiting Pain: Pt. Denies Any Pain Peripheral Nerve Block: Patient did not receive a nerve block
--- NOTE | 2021-02-21 09:13 | W.PM.ENDDOP ---
Date of service: 02/21/21 Time of Service: 09:14 Endoscopy Report DATE OF PROCEDURE: 02/21/21 PRE-OP DIAGNOSIS: Bleeding ulcers POST-OP DIAGNOSIS: same SURGEON: Lilia Cruz ANESTHESIA TYPE: General:No Airway ESTIMATED BLOOD LOSS: 0 PATHOLOGY: other COMPLICATIONS: None DISPOSITION: same day PROCEDURE DESCRIPTION: After informed consent was obtained the patient was take to the procedure room and placed in a supine position. Monitors were applied and a time out was done. The patients name, date of , procedure type, allergies to medications and metal in their body was reviewed. A bite block was placed and the patient was sedated. Once sedated and comfortable the gastroscope was advanced through the oropharynx which was grossly normal into the esophagus. The proximal and mid-esophagus were nl. In the distal esophagus there was: There is no esophageal erosions, varices, diverticula or strictures apparent. The scope was advanced into the stomach and through the pylorus into the 3rd portion of the duodenum. The duodenum was noted to be normal. Biopsies were taken in the duodenum. The scope was retracted back into the stomach and biopsies were done to rule out H. pylori. There were no ulcers or gastritis. The scope was retroflexed. The cardia and fundus were noted to be normal. There is no hiatal hernia noted. The scope was retracted back into the esophagus and biopsies were done of the GE junction to rule out Cedeño's. The Z line was regular. The GE junction was at 38 cm. The scope was removed and the patient was woken up and taken back to [facility] in stable condition.
== END 2021-02-21 10:44 | disposition home or self-care (01) ==
PROVIDERS: PCP Nurse Practitioner Family; Visit Provider Surgery
PROC: 0DJ68ZZ Inspection of Stomach, Via Natural or Artificial Opening Endoscopic (ICD-10-PCS; CPT 43235; principal; 2021-02-21 09:00)
DX: K25.5 Chronic or unspecified gastric ulcer with perforation (principal); R13.10 Dysphagia, unspecified; K31.89 Other diseases of stomach and duodenum; K21.9 Gastro-esophageal reflux disease without esophagitis; J41.0 Simple chronic bronchitis
CPT/HCPCS: 43239; 88305; 94640; J7620

== ENCOUNTER 2022-01-02 18:09 | Outpatient (REF) | payer MEDICARE, SELFPAY ==
[2022-01-02 15:23] LABS: Anion Gap 8.3 mmol/L (3-11); BUN 15 mg/dL (7-18); CO2 26.7 mmol/L (21.0-32.0); CREATININE 0.8 mg/dL (0.70-1.30); Calcium 8.5 mg/dL (8.5-10.1); Chloride 108 mmol/L (98-107); Glucose 91 mg/dL (74-106); Potassium 4.1 mmol/L (3.5-5.1); Sodium 143 mmol/L (136-145)
[2022-01-02 15:45] LABS: Hemoglobin A1C 5.4 % (<5.7)
== END 2022-01-02 18:10 | disposition home or self-care (01) ==
LOC: NCHCN 18:09
PROVIDERS: PCP Nurse Practitioner Family; Visit Provider Nurse Practitioner Family
DX: I10 Essential (primary) hypertension (principal); R73.03 Prediabetes
CPT/HCPCS: 80048; 83036

== ENCOUNTER → 2022-02-17 10:46 | Outpatient (BNVA) | payer MEDICARE, SELFPAY | PROVIDERS: PCP Nurse Practitioner Family; Referring Provider Nurse Practitioner Family; Visit Provider Internal Medicine Cardiovascular Disease | DX: I27.20 Pulmonary hypertension, unspecified (principal); G47.33 Obstructive sleep apnea (adult) (pediatric); J44.9 Chronic obstructive pulmonary disease, unspecified; I42.9 Cardiomyopathy, unspecified; R00.1 Bradycardia, unspecified | CPT/HCPCS: 93005; 99203; 99214 ==

== ENCOUNTER 2022-02-17 10:57 | Outpatient (CLI) | payer MEDICARE, SELFPAY ==
--- NOTE | 2022-02-17 10:45 | RT.EKG_ITS ---
APPROVED REPORT Exam: Resting ECG Reason for Exam: NPW bradycardia Patient Location: O HR:43 bpm ECG Measurements Heart Rate 43 AXIS GA 157 P 49 QRSd 110 QRS -28 QT 463 T 95 QTc 392 Conclusion Sinus bradycardia...rate< 50 Borderline left axis deviation...QRS axis (-15,-29) Nonspecific T abnrm, anterolateral leads...T <-0.10mV, I aVL V2-V6
== END 2022-02-17 10:58 | disposition home or self-care (01) ==
LOC: DI.CARD 10:58
PROVIDERS: PCP Nurse Practitioner Family; Visit Provider Internal Medicine Cardiovascular Disease
DX: G47.33 Obstructive sleep apnea (adult) (pediatric) (principal); I27.20 Pulmonary hypertension, unspecified; I42.9 Cardiomyopathy, unspecified; J44.9 Chronic obstructive pulmonary disease, unspecified; R00.1 Bradycardia, unspecified
CPT/HCPCS: 93010

== ENCOUNTER → 2022-03-19 02:15 | Outpatient (CLI) | payer MEDICARE, SELFPAY ==
--- NOTE | 2022-03-19 08:55 | DI.CTLCSR_ITS ---
Exam(s) CT CHEST LUNG CANCER SCREEN EXAM: CT CHEST LUNG CANCER SCREEN CLINICAL HISTORY: TOBACCO ABUSE, F17.200, CIGARETTE SMOKER, F17.210, LUNG CA SCREENING TECHNIQUE: Imaging Protocol: Axial computed tomography images with coronal and sagittal reformatted images were created and reviewed COMPARISON: CT CT CHEST LUNG CANCER SCREEN from 12/20/2020 FINDINGS: The examination is limited due to patient motion artifact. Tracheobronchial tree: Patent where visualized. Pulmonary parenchyma: No consolidation or dominant measurable mass. Stable scarring in the right midd le lobe. Lung Nodules: None. Mediastinum and Sherry: No dominant adenopathy or fluid collection. The esophagus is unremarkable. Thyroid gland: Unremarkable. Lymph nodes: Unremarkable. Pleura: No effusion or pneumothorax. Heart: The heart is not dilated. Mild coronary artery calcification. No pericardial effusion. Aorta: Thoracic aorta non-dilated.Mild atherosclerosis. Upper abdomen: Unremarkable. Soft Tissues: Bilateral gynecomastia. Bones: Within normal limits. Old healed right rib fracture. IMPRESSION: No pulmonary nodules. Lung RADS Cat 1 - Negative: No nodules and definitely benign nodules Lung-RADS 1.0 CATEGORIES: Category 0 - Prior chest CT exam(s) being located for comparison. Category 1 - Annual screening in 12 months. No nodules or definitely benign nodules. Category 2 - Annual screening in 12 months. Benign appearance. Nodules with low likelihood of becomin g active cancer. Category 3 - 6-month follow-up. Probably benign. Short-term follow-up suggested. Nodules with low lik elihood of becoming active cancer. Category 4A - 3-month follow-up and CT/PET if >8 mm in size. Suspicious finding. Findings which requi re additional testing. Category 4B - Findings which require additional testing and tissue sampling. Suspicious finding. Category 4X - Category 3 or 4 nodules with additional features or imaging findings that increases the suspicion of malignancy. Modifier S- Potentially clinically significant finding. (Non lung cancer) RADIATION DOSE DELIVERED: 97.9mGy.cm Total DLP 2.21mGy CTDIvol 97.9mGy.cm Total DLP 2.21mGy CTDIvol DATA REPOSITORY: All CT scans at this facility are submitted to the National Radiology Data Registry (NRDR) Dose Index Registry (DIR) with the [employer] (A[employer]). RADIATION OPTIMIZATION: All CT scans at this facility use at least one of these dose optimization te chniques: automated exposure control; mA and/or kV adjustment per patient size (includes targeted exa ms where dose is matched to clinical indication); or iterative reconstruction.
== END ==
PROVIDERS: PCP Nurse Practitioner Family; Visit Provider Nurse Practitioner Family
DX: Z12.2 Encounter for screening for malignant neoplasm of respiratory organs (principal); F17.210 Nicotine dependence, cigarettes, uncomplicated
CPT/HCPCS: 71271

== ENCOUNTER 2022-03-30 18:27 | Outpatient (REF) | payer MEDICARE, SELFPAY ==
[2022-03-30 16:36] LABS: Hemoglobin A1C 5.4 % (<5.7)
[2022-03-30 16:40] LABS: Anion Gap 9.4 mmol/L (3-11); BUN 11 mg/dL (7-18); CO2 24.6 mmol/L (21.0-32.0); CREATININE 0.8 mg/dL (0.70-1.30); Calculated LDL 72 mg/dL (<100); Chloride 106 mmol/L (98-107); Cholesterol 142 mg/dL (<200); Glucose 72 mg/dL (74-106); HDL Cholesterol 60 mg/dL (40-60); Potassium 3.6 mmol/L (3.5-5.1); Sodium 140 mmol/L (136-145); Triglyceride 54 mg/dL (<150)
== END 2022-03-30 18:28 | disposition home or self-care (01) ==
LOC: NCHCN 18:27
PROVIDERS: PCP Nurse Practitioner Family; Visit Provider Nurse Practitioner Family
DX: R73.03 Prediabetes (principal); E78.5 Hyperlipidemia, unspecified; R00.1 Bradycardia, unspecified; J44.9 Chronic obstructive pulmonary disease, unspecified
CPT/HCPCS: 80048; 80061; 83036

== ENCOUNTER 2022-04-06 02:53 | Outpatient (RCR) | payer MEDICARE, SELFPAY ==
--- NOTE | 2022-04-06 08:15 | HOLTER_ITS ---
APPROVED REPORT Conclusion This is a 48-hour Holter monitor ordered for bradycardia Predominant rhythm was sinus. Average heart rate was 59. Minimum was 39, maximum 123 There were very rare atrial and ventricular ectopic beats There were several self-limited atrial runs the longest of which was 11 beats in duration There was no atrial fibrillation, no high-grade AV block, no pauses greater than 3 seconds No patient symptoms were reported
== END 2022-04-22 23:59 | disposition home or self-care (01) ==
LOC: RT 02:53
PROVIDERS: PCP Nurse Practitioner Family; Visit Provider Nurse Practitioner Family
DX: R00.1 Bradycardia, unspecified (principal)
CPT/HCPCS: 93227; 93225; 93226

== ENCOUNTER 2023-01-04 16:45 | Outpatient (REF) | payer MEDICARE, SELFPAY ==
[2023-01-05 19:58] LABS: PSA, Screening 0.7 ng/mL (<=3.5)
== END 2023-01-04 16:46 | disposition home or self-care (01) ==
LOC: NCHCN 16:45
PROVIDERS: PCP Nurse Practitioner Family; Visit Provider Nurse Practitioner Family
DX: R39.11 Hesitancy of micturition (principal); Z12.5 Encounter for screening for malignant neoplasm of prostate
CPT/HCPCS: 84153

== ENCOUNTER 2023-02-04 15:52 | Outpatient (REF) | payer MEDICARE, SELFPAY ==
[2023-02-04 16:18] LABS: Hemoglobin A1C 4.9 % (<5.7)
[2023-02-04 16:26] LABS: ALT 27 U/L (16-63); AST 25 U/L (15-37); Albumin 3.7 g/dL (3.4-5.0); Alkaline Phosphatase 91 U/L (46-116); Anion Gap 5.6 mmol/L (3-11); BUN 11 mg/dL (7-18); Bilirubin, Total 0.4 mg/dL (0.2-1.0); CO2 32.4 mmol/L (21.0-32.0); CREATININE 0.9 mg/dL (0.70-1.30); Calcium 8.9 mg/dL (8.5-10.1); Chloride 103 mmol/L (98-107); Glucose 103 mg/dL (74-106); Potassium 3.4 mmol/L (3.5-5.1); Sodium 141 mmol/L (136-145); Total Protein 7.3 g/dL (6.4-8.2)
== END 2023-02-04 15:53 | disposition home or self-care (01) ==
LOC: NCHCN 15:52
PROVIDERS: PCP Nurse Practitioner Family; Visit Provider Nurse Practitioner Family
DX: E66.9 Obesity, unspecified (principal); R79.89 Other specified abnormal findings of blood chemistry; R73.09 Other abnormal glucose
CPT/HCPCS: 80053; 83036

== ENCOUNTER → 2023-05-27 02:26 | Outpatient (CLI) | payer MEDICARE, SELFPAY ==
--- NOTE | 2023-05-27 | DI.CTLCSR_ITS ---
Exam(s) CT CHEST LUNG CANCER SCREEN EXAM: CT CHEST LUNG CANCER SCREEN CLINICAL HISTORY: TOBACCO ABUSE F17.200 CIGARETTE SMOKER F17.210 SCREENING LUNG CANCER. TECHNIQUE: Imaging Protocol: Low Dose Technique CONTRAST MATERIAL: None COMPARISON: CT CT CHEST LUNG CANCER SCREEN from 03/19/2022 FINDINGS: CHEST: LUNGS: There are no ominous pulmonary nodules. There are no confluent infiltrates. No pleural effusi ons. MEDIASTINUM: There is no obvious hilar nor mediastinal adenopathy. CARDIAC: Heart size is normal. There is no pericardial effusion.Caliber of the thoracic aorta is wit hin normal limits. OTHER: OSSEOUS: No significant osseous lesions.. IMPRESSION: 1. No significant pulmonary nodules. 2. No infiltrates nor pleural effusions nor obvious intrathoracic adenopathy. 3. Lung RADS Cat 1 - Negative: No nodules and definitely benign nodules Lung-RADS 1.0 CATEGORIES: Category 0 - Prior chest CT exam(s) being located for comparison. Category 1 - Annual screening in 12 months. No nodules or definitely benign nodules. Category 2 - Annual screening in 12 months. Benign appearance. Nodules with low likelihood of becomin g active cancer. Category 3 - 6-month follow-up. Probably benign. Short-term follow-up suggested. Nodules with low lik elihood of becoming active cancer. Category 4A - 3-month follow-up and CT/PET if >8 mm in size. Suspicious finding. Findings which requi re additional testing. Category 4B - Findings which require additional testing and tissue sampling. Category 4X - Category 3 or 4 nodules with additional features or imaging findings that increases the suspicion of malignancy. Modifier S- Potentially clinically significant findings (non lung cancer) RADIATION DOSE DELIVERED: 99.33mGy.cm Total DLP DATA REPOSITORY: All CT scans at this facility are submitted to the National Radiology Data Registry (NRDR) Dose Index Registry (DIR) with the [employer] (ACR). RADIATION OPTIMIZATION: All CT scans at this facility use at least one of these dose optimization te chniques: automated exposure control; mA and/or kV adjustment per patient size (includes targeted exa ms where dose is matched to clinical indication); or iterative reconstruction.
== END ==
PROVIDERS: PCP Nurse Practitioner Family; Visit Provider Nurse Practitioner Family
DX: F17.210 Nicotine dependence, cigarettes, uncomplicated (principal); Z12.2 Encounter for screening for malignant neoplasm of respiratory organs
CPT/HCPCS: 71271

== ENCOUNTER 2024-01-13 12:21 | Outpatient (REF) | payer MEDICARE, SELFPAY ==
[2024-01-13 16:54] LABS: Anion Gap 9.4 mmol/L (3-11); BUN 18 mg/dL (7-18); CO2 25.6 mmol/L (21.0-32.0); CREATININE 0.8 mg/dL (0.70-1.30); Chloride 102 mmol/L (98-107); Estimated GFR 101.95 (mL/min/1.73m2); Glucose 94 mg/dL (74-106); Magnesium 2.2 mg/dL (1.8-2.4); Potassium 3.9 mmol/L (3.5-5.1); Sodium 137 mmol/L (136-145)
== END 2024-01-13 12:22 | disposition home or self-care (01) ==
LOC: NCHCN 12:21
PROVIDERS: PCP Nurse Practitioner Family; Visit Provider Nurse Practitioner Family
DX: E87.6 Hypokalemia (principal); R25.2 Cramp and spasm
CPT/HCPCS: 80048; 83735

== ENCOUNTER 2024-03-24 16:08 | Emergency (ER) | payer MEDICARE, SELFPAY ==
[2024-03-24 16:12] VITALS: BP 166/89; PULSE 96; RESP 20; TEMP 37.3; O2SAT 98
[2024-03-24 16:59] LABS: Abs Immature Grans 0.02 10^3/uL (0.0-0.06); Absolute Basophil Count 0.04 10^3/uL (0.0-0.2); Absolute Eosinophil Count 0.19 10^3/uL (0.0-0.7); Absolute Monocyte Count 0.28 10^3/uL (0.1-0.8); Absolute Neutrophil Count 1.79 10^3/uL (1.2-6.7); HCT 40.6 % (40.0-50.0); HGB 13.3 g/dL (13.5-17.5); Immature Grans % 0.5 %; Lymphocytes % 39.3 %; MCH 29.4 pg (27.0-33.0); MCHC 32.8 % (32.0-36.0); MCV 90 fL (80-95); MPV 9.7 fL (8.0-11.0); Monocytes % 7.3 %; Neutrophils % 46.9 %; Platelet Count 164 10^3/uL (130-400); RBC 4.53 10^6/uL (4.36-5.78); RDW 13.1 % (11.8-14.1); RDW-SD 42.9 fL; WBC 3.82 10^3/uL (4.4-10.8)
--- NOTE | 2024-03-24 17:17 | W.ED.GENAD ---
Discharge Plan Discharge Details Chief Complaint: PsychEval Primary Care Provider: Lorraine Watson ED Provider: Renetta Gomez Home Meds and New Rx's Prescriptions: No Action albuterol sulfate 90 mcg/actuation aerosol powdr breath activated 2 inh inhalation Q6H PRN Flovent Diskus 100 mcg/actuation blister with device 1 inh inhalation Q12H Patient Comments: pt does not know strength pantoprazole [Protonix] 40 mg tablet,delayed release (DR/EC) 40 mg PO DAILY risperidone 3 mg tablet 3 mg PO DAILY Incruse Ellipta 62.5 mcg/actuation blister with device 1 inh inhalation DAILY lisinopril 2.5 mg tablet 2.5 mg PO DAILY atorvastatin 40 mg tablet 40 mg PO DAILY fluoxetine [Prozac] 20 MG capsule 60 mg PO DAILY simvastatin 10 mg Tablet 10 mg PO DAILY melatonin 5 mg Tablet 5 mg PO HS HPI General Date/Time Provider Initiated Documentation: 03/24/24 16:13. HPI Narrative: Doug is a 58-year-old male with history of depression with suicide attempt, COPD, current tobacco use, cardiomyopathy, MARCK, and pulmonary hypertension who presented to the emergency department today accompanied by police for suicidal ideation. He was the ED warranted for evaluation. Doug is actively suicidal, says he has nothing to live for. He admits to stockpiling medications with intention to take them to commit suicide. He admits to many multiple life stressors, including financial stressors, recent separation from , lack of social supports. He does have a history of suicide attempt in the past, says that he tried hanging himself in the 80s. He has been hospitalized at least once for psychiatric treatment. He denies current homicidal ideation, command hallucinations, self-harm behavior. Says that he smokes tobacco, denies drinking alcohol or drug use. He says he has recently been feeling well, denies recent URI symptoms, abdominal pain, change in bowel or bladder function, change in p.o. intake. Physical exam very reassuring. Patient is alert and oriented, has pressured speech and does appear to perseverate on previous stressful experiences and recent experiences. Easy work of breathing, lung sounds clear bilaterally. Normal heart sounds. No pedal edema. Moving all extremities equally. I independently interpreted the following tests: EKG reassuring, sinus bradycardia, rate 59. No QTc prolongation or ST abnormalities. CBC reassuring, mild leukopenia with white cell count 3.82. CMP notable only for potassium 2.9, this is a new finding. TSH unremarkable. Urinalysis negative. ASA, APAP, EtOH all unremarkable. Potassium was replenished using 50 mEq potassium p.o. Hypokalemia improved, 3.5. Patient medically cleared for evaluation. As he did come in under police custody for EE warrant, a first CERT was completed as patient made it clear that he did not feel treatment was necessary but actively suicidal with plan and access to means Patient resting comfortably in zone B. As he is feeling somewhat anxious and has difficulty sleeping, requesting to trazodone which she has taken previously. 100 mg trazodone prescription provided after discussion with RAFAEL Harris. Handoff report given to Dr Bueno, overnight attending. Related Data Home Medications ?Medication ?Instructions ?Recorded ?Confirmed fluoxetine 20 mg capsule (Prozac) 60 mg PO DAILY 04/26/14 02/17/22 melatonin 5 mg tablet 5 mg PO HS 04/17/19 02/17/22 simvastatin 10 mg tablet 10 mg PO DAILY 04/17/19 02/17/22 pantoprazole 40 mg tablet,delayed 40 mg PO DAILY 05/16/19 02/17/22 release (Protonix) albuterol sulfate 90 mcg/actuation 2 inh inhalation Q6H PRN 01/30/21 02/17/22 breath activated powder inhaler fluticasone propionate 100 1 inh inhalation Q12H 01/30/21 02/17/22 mcg/actuation blister powder for inhalation (Flovent Diskus) atorvastatin 40 mg tablet 40 mg PO DAILY 01/08/22 02/17/22 lisinopril 2.5 mg tablet 2.5 mg PO DAILY 01/08/22 02/17/22 risperidone 3 mg tablet 3 mg PO DAILY 01/08/22 02/17/22 umeclidinium 62.5 mcg/actuation 1 inh inhalation DAILY 01/08/22 02/17/22 blister powder for inhalation (Incruse Ellipta) Allergies Allergy/AdvReac Type Severity Reaction Status Date / Time No Known Allergies Allergy Unverified 02/20/21 08:40 General Stated Complaint: PsychEval SHAY: 2 Review of Systems Narrative: see HPI Exam Const General: cooperative, no acute distress and anxious Nutritional Appearance: average body habitus [facility] Head: normal to inspection Mouth: oral mucosae normal Teeth and gingiva: poor dentition Resp Effort & Inspection: normal respiratory effort and able to speak in complete sentences Auscultation: clear to auscultation bilaterally Cardio Rate: regular rate Rhythm: regular rhythm Extrem General: normal to inspection Psych Mental Status: mental status grossly normal Affect: irritable affect Attitude: cooperative Thought Content: suicidality Course Vital Signs Vital signs: Vital Signs Temperature 37.3 C 03/24/24 16:12 Pulse 96 H 03/24/24 16:12 Respiratory Rate 20 03/24/24 16:12 Blood Pressure 166/89 H 03/24/24 16:12 Pulse Oximetry 98 03/24/24 16:12 Temperature 37.3 C 03/24/24 16:12 Temperature Source Tympanic 03/24/24 16:12 Pulse 96 H 03/24/24 16:12 Respiratory Rate 20 03/24/24 16:12 Blood Pressure 166/89 H 03/24/24 16:12 Blood Pressure Position Sitting 03/24/24 16:12 Pulse Oximetry 98 03/24/24 16:12 Oxygen Delivery Method Room Air 03/24/24 16:12 Oxygen Flow Rate 0 03/24/24 16:12 Pain Level 0 03/24/24 16:12 Lab/Test Results Lab/Test Results: Laboratory Tests Range/Units 03/24/24 16:51 WBC (4.4-10.8) 10^3/uL 3.82 L RBC (4.36-5.78) 10^6/uL 4.53 Hgb (13.5-17.5) g/dL 13.3 L Hct (40.0-50.0) % 40.6 MCV (80-95) fL 90 MCH (27.0-33.0) pg 29.4 MCHC (32.0-36.0) % 32.8 RDW (11.8-14.1) % 13.1 Plt Count (130-400) 10^3/uL 164 MPV (8.0-11.0) fL 9.7 Immature Gran % % 0.5 Neutrophils % % 46.9 Lymphocytes % % 39.3 Monocytes % % 7.3 Eosinophils % % 5.0 Basophils % % 1.0 Nucleated RBC % (0.0-0.3) % 0.0 Absolute Neutrophils (1.2-6.7) 10^3/uL 1.79 Absolute Lymphocytes (1.2-3.4) 10^3/uL 1.50 Absolute Monocytes (0.1-0.8) 10^3/uL 0.28 Absolute Eosinophils (0.0-0.7) 10^3/uL 0.19 Absolute Basophils (0.0-0.2) 10^3/uL 0.04 Medical Decision Making Quality:SDOH Health Related Social Needs: No Data to Display PFSH All Active Problems Preop testing (Acute) Intraabdominal fluid collection (Acute) Perforated gastric ulcer (Acute) Pulmonary hypertension (Acute) mild per echo in 2017 COPD (chronic obstructive pulmonary disease) (Acute) Non-oxygen dependent Cardiomyopathy (Acute) EF 55% per echo in 11/2016, 41% per MPI in 08/2016. Respiratory distress (Acute) Epigastric pain (Acute) Abdominal pain (Acute) Screening for colorectal cancer (Acute) Medical History Bradycardia Depression followed by [facility] Gastric ulcer Hearing loss in right ear History of suicide attempt HTN (hypertension) Hyperlipidemia Insomnia Nightmares Obesity Prediabetes Subungual hematoma Vitamin D deficiency Surgical History Colonoscopy - MAC (12/23/16) History of ear surgery History of esophagogastroduodenoscopy (EGD) (~02/21/21) Family History Father Stroke Mother Liver cancer Social History Smoking/Tobacco Use Status: Current every day (3/4 ppd) Tobacco Type: cigarettes Years smoked: 40 Smoking risk assessment performed?: Yes Alcohol Intake: never Drug use: Never Substance use type: does not use Current gender identity: male Do you feel safe at home: Yes Do you feel safe in your relationship?: Yes
[2024-03-24 17:22] LABS: ALT 25 U/L (16-63); AST 15 U/L (15-37); Albumin 3.5 g/dL (3.4-5.0); Alkaline Phosphatase 78 U/L (46-116); Anion Gap 8.2 mmol/L (3-11); BUN 17 mg/dL (7-18); CO2 27.8 mmol/L (21.0-32.0); Calcium 8.5 mg/dL (8.5-10.1); Chloride 107 mmol/L (98-107); Glucose 190 mg/dL (74-106); Sodium 143 mmol/L (136-145); TSH (W/Ref FT4) 1.31 uIU/mL (0.36-3.74); Total Protein 6.9 g/dL (6.4-8.2)
[2024-03-24 17:24] LABS: Potassium 2.9 mmol/L (3.5-5.1)
[2024-03-24 17:29] LABS: Acetaminophen < 2 ug/mL (10-30); Salicylate < 2.8 mg/dL (<2.8)
--- NOTE | 2024-03-24 17:30 | RT.EKG_ITS ---
APPROVED REPORT Exam: Resting ECG Reason for Exam: Hypokalemia Patient Location: E HR:59 bpm ECG Measurements Heart Rate 59 AXIS UT 148 P 61 QRSd 108 QRS -18 QT 415 T 91 QTc 410 Conclusion Sinus bradycardia...rate< 60 LVH with secondary repolarization abnormality...multi-LVH criteria, abnrm ST-T appropriate interavls no ST segment or T wave abnormalitites to suggest occlusive SC
[2024-03-24 17:36] LABS: ETHANOL BLOOD < 3.0 mg/dL (<10)
[2024-03-24 17:41] LABS: Bilirubin Negative (Negative); Blood Negative (Negative); Clarity Clear (Clear); Glucose Negative (Negative); Ketones Negative (Negative); Leukocyte Esterase Negative (Negative); Nitrite Negative (Negative); pH 5.5 (5-8)
[2024-03-24] MEDS: Potassium Bicarbonate/Cit AC 25 MEQ TABLET.EFF 50 MEQ PO ×2 (17:51→18:20)
[2024-03-24 18:10] LABS: *AMPHETAMINES SCREEN URINE Negative (Negative); *BARBITURATES SCREEN URINE Negative (Negative); *BENZODIAZEPINES SCREEN URINE Negative (Negative); Cannabinoids THC Negative (Negative); Cocaine Screen,Urine Negative (Negative); METHADONE URINE SCREEN Negative (Negative); OPIATES URINE SCREEN Negative (Negative); Tricyclic Antidepressants Negative (Negative)
[2024-03-24 19:20] LABS: Potassium 3.5 mmol/L (3.5-5.1)
[2024-03-24] MEDS: traZODone 100 MG TAB PO (21:09)
--- NOTE | 2024-03-25 07:14 | ED.PROG_ITS ---
Date of service: 03/25/24 Time of Service: 07:14 Medical Decision Making Patient brought in on a mental health warrant and has been EE'd but is pending second certification. There have been no issues overnight. Unable to perform med reconciliation at this point. [facility] Dr. Fabián wolfe pending second CERT. Sign Out Sign Out Data: Sign Out Comment: Doug is a 58-year-old male with suicidal ideation, plan, and access to means (stockpiling his medications). Arrived at a report, for CERT completed. He has been calm and cooperative since arrival to the emergency department, after was aggressive with police. Awaiting consult and inpatient placement. Last updated by Renetta Gomez at 03/24/24 23:48 Discharge Plan Discharge Details Chief Complaint: PsychEval Primary Care Provider: Lorraine Watson ED Provider: Mendoza Bueno [place] and New Rx's Prescriptions: No Action albuterol sulfate 90 mcg/actuation aerosol powdr breath activated 2 inh inhalation Q6H PRN Flovent Diskus 100 mcg/actuation blister with device 1 inh inhalation Q12H Patient Comments: pt does not know strength pantoprazole [Protonix] 40 mg tablet,delayed release (DR/EC) 40 mg PO DAILY risperidone 3 mg tablet 3 mg PO DAILY Incruse Ellipta 62.5 mcg/actuation blister with device 1 inh inhalation DAILY lisinopril 2.5 mg tablet 2.5 mg PO DAILY atorvastatin 40 mg tablet 40 mg PO DAILY fluoxetine [Prozac] 20 MG capsule 60 mg PO DAILY simvastatin 10 mg Tablet 10 mg PO DAILY melatonin 5 mg Tablet 5 mg PO HS
[2024-03-25 07:22] VITALS: BP 149/79; PULSE 57; RESP 16; TEMP 36.9; O2SAT 93
--- NOTE | 2024-03-25 08:35 | CMSP_ITS ---
Date of service: 03/25/24 Time of Service: 08:35 Care Management Safety Plan Status Status: Involuntary Reason for Wait Reason for Wait: Inpatient Admission Safety Plan Safety Plan: INVOLUNTARY FOR INPATIENT PSYCHIATRIC STABILIZATION.? Patient is appropriate in all interactions since arriving at [facility]; Pt has demonstrated appropriate coping and communication skills, has articulated his or her needs and concerns and is fully engaged during staff interactions. Second cert completed, EE upheld. Patient will remain at [facility] involuntarily per protocol, while awaiting inpatient psych treatment which is being coordinated by [facility] and [facility]. Doug is cooperative and agreeable at this time. CM will follow Huddle is coordinated by CM and included Alberta and Tigist from [facility], RN Adventure Guide Loyda, Primary RN Rasheed and JONI. Safety plan has been established with patient, and care team, to adhere to patient goals, identify restrictions based on behavioral status, address nutrition, and determine allowed personal belongings, tools for hygiene and personal care. Determine level of activity including ambulation, level of supervision, visitors, and determine privileges based on behaviors and level of engagement by pt. SAFETY PLAN: 1. Will remain on suicide precautions, in paper clothes 2. Will remain in Zone B under direct supervision of one-on-one staff at all times provided by [employer]; JONI, REGINA floor framer. 3. May have paper cups, plates, finger foods as well as a cardboard spoon with which to eat meals. 4. Follow [facility] Management of the Admitted Behavioral Health Patient policy. 5. Shower available in Zone B without restriction. 6. Personal belongings-soft items permitted at RN discretion. 7. Visitors-none at this time. 8. Activities: soft cart items approved per RN discretion. 9.? Bathroom available in Zone B without restriction. 10. Phone: limited to [facility] cordless phone at RN discretion. Due to INVOLUNTARY status, patient is being held at [facility] by the Department of Mental Health ([facility]) until 2nd certification by [facility] Psychiatrist can be performed (within 24 hours). Staff will provide de-escalation support (CPI) as needed. If patient wishes to leave [facility], staff will contact [facility] Crisis Screener ([phone]) and Rfid Strategist ([phone]) as soon as possible. In the event of elopement, notify [place] [employer] ([phone]). Patient is currently involuntarily at [facility]. [facility] Frontline Brine Well Operator will continue seeking placement. Please contact the Rfid Strategist for any needed changes to Safety Plan. Safety plan has been provided to interdepartmental care team. Patient will be transported by supervisor force adjustment at time of discharge.
--- NOTE | 2024-03-25 08:35 | PDOC.CMSAFE ---
Date of service: 03/25/24 Time of Service: 08:35 Care Management Safety Plan Status Status: Involuntary Reason for Wait Reason for Wait: Inpatient Admission Safety Plan Safety Plan: INVOLUNTARY FOR INPATIENT PSYCHIATRIC STABILIZATION.? Patient is appropriate in all interactions since arriving at [facility]; Pt has demonstrated appropriate coping and communication skills, has articulated his or her needs and concerns and is fully engaged during staff interactions. Second cert completed, EE upheld. Patient will remain at [facility] involuntarily per protocol, while awaiting inpatient psych treatment which is being coordinated by [facility] and [facility]. Doug is cooperative and agreeable at this time. CM will follow Huddle is coordinated by CM and included Alberta and Tigist from [facility], RN Candles Pourer Loyda, Primary RN Rasheed and JONI. Safety plan has been established with patient, and care team, to adhere to patient goals, identify restrictions based on behavioral status, address nutrition, and determine allowed personal belongings, tools for hygiene and personal care. Determine level of activity including ambulation, level of supervision, visitors, and determine privileges based on behaviors and level of engagement by pt. SAFETY PLAN: 1. Will remain on suicide precautions, in paper clothes 2. Will remain in Zone B under direct supervision of one-on-one staff at all times provided by [employer]; JONI, REGINA bindery machine setter/set up operator. 3. May have paper cups, plates, finger foods as well as a cardboard spoon with which to eat meals. 4. Follow [facility] Management of the Admitted Behavioral Health Patient policy. 5. Shower available in Zone B without restriction. 6. Personal belongings-soft items permitted at RN discretion. 7. Visitors-none at this time. 8. Activities: soft cart items approved per RN discretion. 9.? Bathroom available in Zone B without restriction. 10. Phone: limited to [facility] cordless phone at RN discretion. Due to INVOLUNTARY status, patient is being held at [facility] by the Department of Mental Health ([facility]) until 2nd certification by [facility] Psychiatrist can be performed (within 24 hours). Staff will provide de-escalation support (CPI) as needed. If patient wishes to leave [facility], staff will contact [facility] Crisis Screener ([phone]) and Forger Helper ([phone]) as soon as possible. In the event of elopement, notify [place] [employer] ([phone]). Patient is currently involuntarily at [facility]. [facility] Frontline Construction Management Instructor will continue seeking placement. Please contact the Forger Helper for any needed changes to Safety Plan. Safety plan has been provided to interdepartmental care team. Patient will be transported by felled seam operator chainstitch at time of discharge.
[2024-03-25] MEDS: risperiDONE 1 MG TAB 3 MG PO (09:19)
--- NOTE | 2024-03-25 14:59 | W.EDPROG ---
Date of service: 03/25/24 Time of Service: 14:59 Medical Decision Making Patient remained stable throughout the shift. No interventions were needed. Second CERT has been completed. Mental health still agrees with plan for admission. Quality:SDOH Health Related Social Needs: No Data to Display Sign Out Sign Out Data: Sign Out Comment: Doug is a 58-year-old male with suicidal ideation, plan, and access to means (stockpiling his medications). Arrived at a report, for CERT completed. He has been calm and cooperative since arrival to the emergency department, after was aggressive with police. Awaiting consult and inpatient placement. Last updated by Renetta Gomez at 03/24/24 23:48 Sign Out Comment: Patient currently on EE. He has been cooperative here. Last updated by Mendoza Bueno MD at 03/25/24 07:38 Discharge Plan Discharge Details Chief Complaint: PsychEval Primary Care Provider: Lorraine Watson ED Provider: Willis Frye Home Meds and New Rx's Prescriptions: No Action albuterol sulfate 90 mcg/actuation aerosol powdr breath activated 2 inh inhalation Q6H PRN fluticasone propionate [Flovent Diskus] 100 mcg/actuation blister with device 1 inh inhalation Q12H Patient Comments: pt does not know strength pantoprazole [Protonix] 40 mg tablet,delayed release (DR/EC) 40 mg PO DAILY risperidone 3 mg tablet 3 mg PO DAILY Incruse Ellipta 62.5 mcg/actuation blister with device 1 inh inhalation DAILY lisinopril 2.5 mg tablet 2.5 mg PO DAILY atorvastatin 40 mg tablet 40 mg PO DAILY fluoxetine [Prozac] 20 MG capsule 60 mg PO DAILY simvastatin 10 mg Tablet 10 mg PO DAILY melatonin 5 mg Tablet 5 mg PO HS
--- NOTE | 2024-03-25 16:03 | W.EDPROG ---
Date of service: 03/25/24 Time of Service: 16:03 Medical Decision Making This patient was signed out to me. Please see previous notes for H&P and initial eval. In brief, 58yo presenting with SI. Medically cleared. EEd, pending 2nd cert. No acute events this shift. Will be signed out to oncoming physician, plan remains as above. Quality:SDOH Health Related Social Needs: No Data to Display Sign Out Sign Out Data: Sign Out Comment: Doug is a 58-year-old male with suicidal ideation, plan, and access to means (stockpiling his medications). Arrived at a report, for CERT completed. He has been calm and cooperative since arrival to the emergency department, after was aggressive with police. Awaiting consult and inpatient placement. Last updated by Renetta Gomez at 03/24/24 23:48 Sign Out Comment: Patient currently on EE. He has been cooperative here. Last updated by Mendoza Bueno MD at 03/25/24 07:38 Sign Out Comment: Pending placement, currently here involuntarily. Daily risperidone order placed. Patient stable throughout shift. Last updated by Willis Frye DO at 03/25/24 15:18 Discharge Plan Discharge Details Chief Complaint: PsychEval Primary Care Provider: Lorraine Watson ED Provider: Marilu Cazares Home Meds and New Rx's Prescriptions: No Action albuterol sulfate 90 mcg/actuation aerosol powdr breath activated 2 inh inhalation Q6H PRN fluticasone propionate [Flovent Diskus] 100 mcg/actuation blister with device 1 inh inhalation Q12H Patient Comments: pt does not know strength pantoprazole [Protonix] 40 mg tablet,delayed release (DR/EC) 40 mg PO DAILY risperidone 3 mg tablet 3 mg PO DAILY Incruse Ellipta 62.5 mcg/actuation blister with device 1 inh inhalation DAILY lisinopril 2.5 mg tablet 2.5 mg PO DAILY atorvastatin 40 mg tablet 40 mg PO DAILY fluoxetine [Prozac] 20 MG capsule 60 mg PO DAILY simvastatin 10 mg Tablet 10 mg PO DAILY melatonin 5 mg Tablet 5 mg PO HS
--- NOTE | 2024-03-26 05:51 | W.EDPROG ---
Date of service: 03/26/24 Time of Service: 06:34 Medical Decision Making Patient remains here on EE pending psychiatric admission. There have been no issues overnight. Continues to be cooperative with no issues. Sign Out Sign Out Data: Sign Out Comment: Doug is a 58-year-old male with suicidal ideation, plan, and access to means (stockpiling his medications). Arrived at a report, for CERT completed. He has been calm and cooperative since arrival to the emergency department, after was aggressive with police. Awaiting consult and inpatient placement. Last updated by Renetta Gomez at 03/24/24 23:48 Sign Out Comment: Patient currently on EE. He has been cooperative here. Last updated by Mendoza Bueno MD at 03/25/24 07:38 Sign Out Comment: Pending placement, currently here involuntarily. Daily risperidone order placed. Patient stable throughout shift. Last updated by Willis Frye DO at 03/25/24 15:18 Sign Out Comment: SI, EEd, 2nd cert completed. Pending placement. Last updated by Marilu Cazares MD at 03/25/24 23:25 Discharge Plan Discharge Details Chief Complaint: PsychEval Primary Care Provider: Lorraine Watson ED Provider: Mendoza Bueno Home Meds and New Rx's Prescriptions: No Action albuterol sulfate 90 mcg/actuation aerosol powdr breath activated 2 inh inhalation Q6H PRN fluticasone propionate [Flovent Diskus] 100 mcg/actuation blister with device 1 inh inhalation Q12H Patient Comments: pt does not know strength pantoprazole [Protonix] 40 mg tablet,delayed release (DR/EC) 40 mg PO DAILY risperidone 3 mg tablet 3 mg PO DAILY Incruse Ellipta 62.5 mcg/actuation blister with device 1 inh inhalation DAILY lisinopril 2.5 mg tablet 2.5 mg PO DAILY atorvastatin 40 mg tablet 40 mg PO DAILY fluoxetine [Prozac] 20 MG capsule 60 mg PO DAILY simvastatin 10 mg Tablet 10 mg PO DAILY melatonin 5 mg Tablet 5 mg PO HS
--- NOTE | 2024-03-26 07:31 | W.EDPROG ---
Date of service: 03/26/24 Time of Service: 07:31 Medical Decision Making Care assumed from off going provider. Patient is a 58-year-old came in currently under involuntary hold. EE and second certification have been completed. Patient is medically cleared and pending placement. Quality:[facility] Health Related Social Needs: No Data to Display Sign Out Sign Out Data: Sign Out Comment: Doug is a 58-year-old male with suicidal ideation, plan, and access to means (stockpiling his medications). Arrived at a report, for CERT completed. He has been calm and cooperative since arrival to the emergency department, after was aggressive with police. Awaiting consult and inpatient placement. Last updated by Renetta Gomez at 03/24/24 23:48 Sign Out Comment: Patient currently on EE. He has been cooperative here. Last updated by Mendoza Bueno MD at 03/25/24 07:38 Sign Out Comment: Pending placement, currently here involuntarily. Daily risperidone order placed. Patient stable throughout shift. Last updated by Willis Frye DO at 03/25/24 15:18 Sign Out Comment: SI, EEd, 2nd cert completed. Pending placement. Last updated by Marilu Cazares MD at 03/25/24 23:25 Sign Out Comment: Involuntary psych admission with 2nd certification completed, no issues overnight. Last updated by Mendoza Bueno MD at 03/26/24 07:18 Sign Out Comment: Involuntary with 2nd cert completed, pending placement No issues during shift Last updated by Anisa Hall MD at 03/26/24 15:48 Sign Out Comment: EE for SI, resting comfortably Last updated by Santy Vasquez MD at 03/26/24 23:32 Sign Out Comment: Remains on EE pending involuntary admission. Last updated by Mendoza Bueno MD at 03/27/24 06:54 Discharge Plan Disposition Patient Disposition: Psychiatric Hospital/Unit Specific Psychiatric Facility: Care Bed Condition: Stable Discharge Details Clinical Impression: Depression with suicidal ideation Primary Care Provider: Lorraine Watson ED Provider: Anisa Hall Home Meds and New Rx's Prescriptions: No Action albuterol sulfate 90 mcg/actuation aerosol powdr breath activated 2 inh inhalation Q6H PRN fluticasone propionate [Flovent Diskus] 100 mcg/actuation blister with device 1 inh inhalation Q12H Patient Comments: pt does not know strength pantoprazole [Protonix] 40 mg tablet,delayed release (DR/EC) 40 mg PO DAILY risperidone 3 mg tablet 3 mg PO DAILY Incruse Ellipta 62.5 mcg/actuation blister with device 1 inh inhalation DAILY lisinopril 2.5 mg tablet 2.5 mg PO DAILY atorvastatin 40 mg tablet 40 mg PO DAILY fluoxetine [Prozac] 20 MG capsule 60 mg PO DAILY simvastatin 10 mg Tablet 10 mg PO DAILY melatonin 5 mg Tablet 5 mg PO HS Discharge Data Discharge Date/Time-TO BE ENTERED AT DEPARTURE: 03/27/24 15:24
[2024-03-26 07:57] VITALS: BP 187/93; PULSE 53; RESP 18; TEMP 36.2; O2SAT 98
--- NOTE | 2024-03-26 08:45 | CMSP_ITS ---
Date of service: 03/26/24 Time of Service: 08:46 Care Management Safety Plan Status Status: Involuntary Reason for Wait Reason for Wait: Inpatient Admission Safety Plan Safety Plan: INVOLUNTARY FOR INPATIENT PSYCHIATRIC STABILIZATION.? Patient is appropriate in all interactions since arriving at [facility]; Pt has demonstrated appropriate coping and communication skills, has articulated his or her needs and concerns and is fully engaged during staff interactions. Remains at [facility] Involuntarily/EE status. Patient will remain at [facility] involuntarily per protocol, while awaiting inpatient psych treatment. Doug is cooperative and agreeable at this time. Interdepartmental huddle is coordinated by CM, present are KRIS/Alberta, RN Automobile Tester Radha, Primary RN Jami, JONI Nagy, RN ANA Glez. No changes are made to safety plan. Referral status per [facility]: Domenicanic declined, Amado is reviewing, [facility] not open to admissions until Wednesday. CM will continue to follow. Safety plan has been established with patient, and care team, to adhere to patient goals, identify restrictions based on behavioral status, address nutrition, and determine allowed personal belongings, tools for hygiene and personal care. Determine level of activity including ambulation, level of supervision, visitors, and determine privileges based on behaviors and level of engagement by pt. SAFETY PLAN: 1. Will remain on suicide precautions, in paper clothes 2. Will remain in Zone B under direct supervision of one-on-one staff at all times provided by [employer]; JONI, REGINA senior attorney. 3. May have paper cups, plates, finger foods as well as a cardboard spoon with which to eat meals. 4. Follow [facility] Management of the Admitted Behavioral Health Patient policy. 5. Shower available in Zone B without restriction. 6. Personal belongings-soft items permitted at RN discretion. 7. Visitors-none at this time. 8. Activities: soft cart items approved per RN discretion. 9.? Bathroom available in Zone B without restriction. 10. Phone: limited to [facility] cordless phone at RN discretion. Due to INVOLUNTARY status, patient is being held at [facility] by the Department of Mental Health (DM) until 2nd certification by [facility] Psychiatrist can be performed (within 24 hours). Staff will provide de-escalation support (CPI) as needed. If patient wishes to leave [facility], staff will contact [facility] Crisis Screener ([phone]) and Chef Passenger Vessel ([phone]) as soon as possible. In the event of elopement, notify [facility] Police ([phone]). Patient is currently involuntarily at [facility]. [facility] Frontline Filter Tank Tender will continue seeking placement. Please contact the Chef Passenger Vessel for any needed changes to Safety Plan. Safety plan has been provided to interdepartmental care team. Patient will be transported by tobacco prizer at time of discharge.
--- NOTE | 2024-03-26 08:45 | PDOC.CMSAFE ---
Date of service: 03/26/24 Time of Service: 08:46 Care Management Safety Plan Status Status: Involuntary Reason for Wait Reason for Wait: Inpatient Admission Safety Plan Safety Plan: INVOLUNTARY FOR INPATIENT PSYCHIATRIC STABILIZATION.? Patient is appropriate in all interactions since arriving at [facility]; Pt has demonstrated appropriate coping and communication skills, has articulated his or her needs and concerns and is fully engaged during staff interactions. Remains at [facility] Involuntarily/EE status. Patient will remain at [facility] involuntarily per protocol, while awaiting inpatient psych treatment. Doug is cooperative and agreeable at this time. Interdepartmental huddle is coordinated by CM, present are KRIS/Alberta, RN Construction Inspector Radha, Primary RN Jami, JONI Nagy, RN ANA Glez. No changes are made to safety plan. Referral status per [facility]: [facility]omenicanic declined, [place] is reviewing, [facility] not open to admissions until Wednesday. CM will continue to follow. Safety plan has been established with patient, and care team, to adhere to patient goals, identify restrictions based on behavioral status, address nutrition, and determine allowed personal belongings, tools for hygiene and personal care. Determine level of activity including ambulation, level of supervision, visitors, and determine privileges based on behaviors and level of engagement by pt. SAFETY PLAN: 1. Will remain on suicide precautions, in paper clothes 2. Will remain in Zone B under direct supervision of one-on-one staff at all times provided by [employer]; JONI, REGINA liquor grinding mill operator. 3. May have paper cups, plates, finger foods as well as a cardboard spoon with which to eat meals. 4. Follow [facility] Management of the Admitted Behavioral Health Patient policy. 5. Shower available in Zone B without restriction. 6. Personal belongings-soft items permitted at RN discretion. 7. Visitors-none at this time. 8. Activities: soft cart items approved per RN discretion. 9.? Bathroom available in Zone B without restriction. 10. Phone: limited to [facility] cordless phone at RN discretion. Due to INVOLUNTARY status, patient is being held at [facility] by the Department of Mental Health (DM) until 2nd certification by [facility] Psychiatrist can be performed (within 24 hours). Staff will provide de-escalation support (CPI) as needed. If patient wishes to leave [facility], staff will contact [facility] Crisis Screener ([phone]) and Barrel Straightener ([phone]) as soon as possible. In the event of elopement, notify [facility] Police ([phone]). Patient is currently involuntarily at [facility]. [facility] Frontline Powder Blender And Pourer will continue seeking placement. Please contact the Barrel Straightener for any needed changes to Safety Plan. Safety plan has been provided to interdepartmental care team. Patient will be transported by shaper set up operator at time of discharge.
[2024-03-26] MEDS: risperiDONE 1 MG TAB 3 MG PO (09:15)
[2024-03-27] MEDS: traZODone 50 MG TAB 100 MG PO (01:22)
--- NOTE | 2024-03-27 05:38 | NUR.NOTE ---
Pt is awake and requested breakfast. Pt is pleasant Nursing Note:
--- NOTE | 2024-03-27 06:48 | W.EDPROG ---
Date of service: 03/27/24 Time of Service: 06:48 Medical Decision Making Patient remains on EE and is pending involuntary psychiatric admission. No issues overnight, calm and cooperative. Sign Out Sign Out Data: Sign Out Comment: Doug is a 58-year-old male with suicidal ideation, plan, and access to means (stockpiling his medications). Arrived at a report, for CERT completed. He has been calm and cooperative since arrival to the emergency department, after was aggressive with police. Awaiting consult and inpatient placement. Last updated by Renetta Gomez at 03/24/24 23:48 Sign Out Comment: Patient currently on EE. He has been cooperative here. Last updated by Mendoza Bueno MD at 03/25/24 07:38 Sign Out Comment: Pending placement, currently here involuntarily. Daily risperidone order placed. Patient stable throughout shift. Last updated by Willis Frye DO at 03/25/24 15:18 Sign Out Comment: SI, EEd, 2nd cert completed. Pending placement. Last updated by Marilu Cazares MD at 03/25/24 23:25 Sign Out Comment: Involuntary psych admission with 2nd certification completed, no issues overnight. Last updated by Mendoza Bueno MD at 03/26/24 07:18 Sign Out Comment: Involuntary with 2nd cert completed, pending placement No issues during shift Last updated by Anisa Hall MD at 03/26/24 15:48 Sign Out Comment: EE for SI, resting comfortably Last updated by Santy Vasquez MD at 03/26/24 23:32 Discharge Plan Discharge Details Chief Complaint: PsychEval Primary Care Provider: Lorraine Watson ED Provider: Mendoza Bueno Home Meds and New Rx's Prescriptions: No Action albuterol sulfate 90 mcg/actuation aerosol powdr breath activated 2 inh inhalation Q6H PRN fluticasone propionate [Flovent Diskus] 100 mcg/actuation blister with device 1 inh inhalation Q12H Patient Comments: pt does not know strength pantoprazole [Protonix] 40 mg tablet,delayed release (DR/EC) 40 mg PO DAILY risperidone 3 mg tablet 3 mg PO DAILY Incruse Ellipta 62.5 mcg/actuation blister with device 1 inh inhalation DAILY lisinopril 2.5 mg tablet 2.5 mg PO DAILY atorvastatin 40 mg tablet 40 mg PO DAILY fluoxetine [Prozac] 20 MG capsule 60 mg PO DAILY simvastatin 10 mg Tablet 10 mg PO DAILY melatonin 5 mg Tablet 5 mg PO HS
--- NOTE | 2024-03-27 07:12 | ED.PROG_ITS ---
Date of service: 03/27/24 Time of Service: 07:13 Medical Decision Making Care assumed from off going provider. Patient is a 58-year-old came in currently under involuntary hold. EE and second certification have been completed. Patient is medically cleared and pending placement. No issues overnight 1000 Discussed with Sudha Uribe at [facility], for to Doc. Patient has been accepted and transportation will be arranged. 1110 Patient reevaluated by [facility] services. 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 At this time they feel that he has been stable throughout his time here in the emergency department, which he has been. They feel that he is now showing more insight and appropriate judgment and they feel that he is a good candidate for the care bed. They will stop the EE and make arrangements for him to be transported to the care bed for continued close care. 1500 Transported to care bed without any additional issues. Quality:[facility] Health Related Social Needs: No Data to Display Sign Out Sign Out Data: Sign Out Comment: Doug is a 58-year-old male with suicidal ideation, plan, and access to means (stockpiling his medications). Arrived at a report, for CERT completed. He has been calm and cooperative since arrival to the emergency department, after was aggressive with police. Awaiting consult and inpatient placement. Last updated by Renetta Gomez at 03/24/24 23:48 Sign Out Comment: Patient currently on EE. He has been cooperative here. Last updated by Mendoza Bueno MD at 03/25/24 07:38 Sign Out Comment: Pending placement, currently here involuntarily. Daily risperidone order placed. Patient stable throughout shift. Last updated by Willis Frye DO at 03/25/24 15:18 Sign Out Comment: SI, EEd, 2nd cert completed. Pending placement. Last updated by Marilu Cazares MD at 03/25/24 23:25 Sign Out Comment: Involuntary psych admission with 2nd certification completed, no issues overnight. Last updated by Mendoza Bueno MD at 03/26/24 07:18 Sign Out Comment: Involuntary with 2nd cert completed, pending placement No issues during shift Last updated by Anisa Hall MD at 03/26/24 15:48 Sign Out Comment: EE for SI, resting comfortably Last updated by Santy Vasquez MD at 03/26/24 23:32 Sign Out Comment: Remains on EE pending involuntary admission. Last updated by Mendoza Bueno MD at 03/27/24 06:54 Discharge Plan Disposition Patient Disposition: Psychiatric Hospital/Unit Specific Psychiatric Facility: Care Bed Condition: Stable Discharge Details Clinical Impression: Depression with suicidal ideation Primary Care Provider: Lorraine Watson ED Provider: Anisa Hall Home Meds and New Rx's Prescriptions: No Action albuterol sulfate 90 mcg/actuation aerosol powdr breath activated 2 inh inhalation Q6H PRN fluticasone propionate [Flovent Diskus] 100 mcg/actuation blister with device 1 inh inhalation Q12H Patient Comments: pt does not know strength pantoprazole [Protonix] 40 mg tablet,delayed release (DR/EC) 40 mg PO DAILY risperidone 3 mg tablet 3 mg PO DAILY Incruse Ellipta 62.5 mcg/actuation blister with device 1 inh inhalation DAILY lisinopril 2.5 mg tablet 2.5 mg PO DAILY atorvastatin 40 mg tablet 40 mg PO DAILY fluoxetine [Prozac] 20 MG capsule 60 mg PO DAILY simvastatin 10 mg Tablet 10 mg PO DAILY melatonin 5 mg Tablet 5 mg PO HS
[2024-03-27 07:30] VITALS: BP 159/67; PULSE 57; RESP 17; TEMP 34.7; O2SAT 97
[2024-03-27] MEDS: risperiDONE 1 MG TAB 3 MG PO (07:33)
--- NOTE | 2024-03-29 11:48 | MHPN_ITS ---
Date of service: 03/25/24 Time of Service: 11:49 Mental Health Emergency Note Release [facility] release signed:: Yes Reason for Visit This clinician participated in the second cert in person with the client. The client shared all of the stressors he has been experiencing and that he has had enough. He has been hospitalized before however this was man years ago. He was seen by his team this past week along with ES. In the last 2 weeks has the pt presented for ES prior to today?: Unknown Impression The client's past attempts of suicide are unknown. He did not partake in any screening tools due to his disposition. The client is a 58-year-old, single, male who lives independently in an apartment in [place]. 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 The client uses He/Him pronouns and identifies as a male, heterosexual. The client presents as tired today but with a slightly improved mood. He is reported by nursing to be cooperative and well mannered. The client expressed his concerns to the psychiatrist as well who certified he EE. Plan/Disposition Recommended Disposition: Hospitalization facilities contacted. Plan: The client has made some progress since he first was detained. He has continued to engage in the assessment process. If continued improvement happens the client may be offered lesser restrictive means to meet his needs for treatment. Person reported agreement to plan: No Reports/communication Outcome discussed with: ED/Personnel
--- NOTE | 2024-03-29 15:53 | PDOC.MHPN2 ---
Date of service: 03/26/24 Time of Service: 15:54 Mental Health Emergency Note Release [facility] release signed:: Yes Reason for Visit In the last 2 weeks has the pt presented for ES prior to today?: Unknown Impression The client's past attempts of suicide are unknown. He did not partake in any screening tools due to his disposition. The client is a 58-year-old, single, male who lives independently in an apartment in [place] [facility] [place]. 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 The client uses He/Him pronouns and identifies as a male, heterosexual. The client presented sitting on his bed this morning smiling and appearing more rested. He said I am glad I came here. He noted that for the first time in a long time he got 6 hours of sleep and felt rested. He reported that he is eating well and has interacted well with other client's waiting for a bed. Nursing reported that he continues to be appropriate. Plan/Disposition Recommended Disposition: Hospitalization facilities contacted. Plan: The client has improved significantly and if still appropriate tomorrow we will consider him switching to voluntary and taking participating in a lesser restrictive means of treatment. Person reported agreement to plan: No Reports/communication Outcome discussed with: ED/Personnel
== END 2024-03-27 15:24 ==
PROVIDERS: Nurse Practitioner Family; Emergency Provider Emergency Medicine; PCP Nurse Practitioner Family
DX: R45.851 Suicidal ideations (principal); F32.A Depression, unspecified; I10 Essential (primary) hypertension; E78.5 Hyperlipidemia, unspecified; R00.1 Bradycardia, unspecified; J44.9 Chronic obstructive pulmonary disease, unspecified; I27.20 Pulmonary hypertension, unspecified; E87.6 Hypokalemia; F17.210 Nicotine dependence, cigarettes, uncomplicated
CPT/HCPCS: 123; 80053; 80307; 93005; 99284; 00123; 80320; 80329; 81003; 84132; 84443; 85025; 93010; 99283

== ENCOUNTER 2024-04-06 16:17 | Outpatient (REF) | payer MEDICARE, SELFPAY ==
[2024-04-07 08:12] LABS: PSA, Screening 1.2 ng/mL (<=3.5)
== END 2024-04-06 16:18 | disposition home or self-care (01) ==
LOC: NCHCN 16:17
PROVIDERS: PCP Nurse Practitioner Family; Visit Provider Nurse Practitioner Family
DX: R35.0 Frequency of micturition (principal); Z12.5 Encounter for screening for malignant neoplasm of prostate
CPT/HCPCS: 84153

== ENCOUNTER 2024-06-26 18:52 | Emergency (ER) | payer OTHER, SELFPAY ==
[2024-06-26 18:56] VITALS: BP 144/82; PULSE 76; RESP 16; TEMP 36.3; O2SAT 95
--- NOTE | 2024-06-26 19:04 | W.ED.GENAD ---
Discharge Plan Disposition Patient Disposition: Home Condition: Stable Discharge Details Clinical Impression: Sprain of left shoulder Primary Care Provider: Lorraine Watson ED Provider: Willis Sparks Home Meds and New Rx's Prescriptions: Continued albuterol sulfate 90 mcg/actuation aerosol powdr breath activated 2 inh inhalation Q6H PRN fluticasone propionate [Flovent Diskus] 100 mcg/actuation blister with device 1 inh inhalation Q12H Patient Comments: pt does not know strength pantoprazole [Protonix] 40 mg tablet,delayed release (DR/EC) 40 mg PO DAILY risperidone 3 mg tablet 3 mg PO DAILY Incruse Ellipta 62.5 mcg/actuation blister with device 1 inh inhalation DAILY lisinopril 2.5 mg tablet 2.5 mg PO DAILY atorvastatin 40 mg tablet 40 mg PO DAILY fluoxetine [Prozac] 20 MG capsule 60 mg PO DAILY simvastatin 10 mg Tablet 10 mg PO DAILY melatonin 5 mg Tablet 5 mg PO HS Discharge Instructions Instructions: Shoulder Sprain Additional Instructions: You were seen in the emergency department for the sprain of your left shoulder while lifting a heavy object at work today, there is no sign of rotator cuff injury on physical exam and there is no bony abnormality or fracture seen on x-ray. Please rest and ice the shoulder tonight, take Tylenol and ibuprofen as needed for any pain, please return to the ER for any signs of neurovascular compromise to the left arm, follow-up with orthopedics for persistent pain lasting longer than 2 weeks. Referrals: Lorraine Watson [Primary Care Provider] - Discharge Data Discharge Date/Time-TO BE ENTERED AT DEPARTURE: 06/26/24 20:29 HPI General Date/Time Provider Initiated Documentation: 06/26/24 19:04. HPI Narrative: 59 year-old male presents to ED today by POV/ambulating with a chief complaint of L shoulder pain, R-hand dominant, from lifting a heavy generator at work earlier- stated his shoulder hurt for a while, but is better now with onset around 1640. Quality described as no pain currently, no radiation to swelling, deformity, numbness/tingling to arm, neck pain. Severity is described as 0/10. Palliating factors include ibuprofen. Provoking factors include nothing specific. Patient not anticoagulated. Related Data Home Medications ?Medication ?Instructions ?Recorded ?Confirmed fluoxetine 20 mg capsule (Prozac) 60 mg PO DAILY 04/26/14 03/25/24 melatonin 5 mg tablet 5 mg PO HS 04/17/19 03/25/24 simvastatin 10 mg tablet 10 mg PO DAILY 04/17/19 03/25/24 pantoprazole 40 mg tablet,delayed 40 mg PO DAILY 05/16/19 03/25/24 release (Protonix) albuterol sulfate 90 mcg/actuation 2 inh inhalation Q6H PRN 01/30/21 03/25/24 breath activated powder inhaler fluticasone propionate 100 1 inh inhalation Q12H 01/30/21 03/25/24 mcg/actuation blister powder for inhalation (Flovent Diskus) atorvastatin 40 mg tablet 40 mg PO DAILY 01/08/22 03/25/24 lisinopril 2.5 mg tablet 2.5 mg PO DAILY 01/08/22 03/25/24 risperidone 3 mg tablet 3 mg PO DAILY 01/08/22 03/25/24 umeclidinium 62.5 mcg/actuation 1 inh inhalation DAILY 01/08/22 03/25/24 blister powder for inhalation (Incruse Ellipta) Allergies Allergy/AdvReac Type Severity Reaction Status Date / Time No Known Allergies Allergy Unverified 06/26/24 19:04 General Stated Complaint: Orthopedic SHAY: 3 Review of Systems All systems reviewed & are unremarkable except as noted in HPI and below Exam Narrative Exam Narrative: GENERAL APPEARANCE: Well-nourished, non-toxic, awake and alert, atraumatic, no acute distress. SKIN: Warm, pink, dry, intact, without rashes/lesions/ulcerations. HEAD: Normocephalic, atraumatic, normal hair distribution for gender/age. EYES: Normal conjunctiva, no exudates on lids/lashes. ENT: Nares patent, no circumoral cyanosis, no facial swelling NECK: Supple, trachea midline, painless cervical ROM. LUNGS/CHEST: Non-labored respirations, normal A/P diameter, symmetrical expansion, no chest wall deformity HEART (CV/PV): Regular rate, L radial pulse 2+, no peripheral edema, no JVD. ABDOMEN: Soft, non-distended, no guarding. MSK: Normal ROM, no swelling/deformity to bilateral UEs or LEs, moving all extremities without weakness, no cyanosis, spine midline without tenderness, normal curvature, speeds and empty can negative, no tenderness to shoulder or trapezius or midline neck, no deformity, neurovascularly intact in the left arm NEURO: Mental Status AAOx4 - alert to person, place, time, events No facial droop, no forehead involvement. Motor: No focal weakness - strength 5/5 in bilateral UEs and LEs, proximal and distal, symmetric. Sensory: sensation intact to light touch globally. Gait normal: patient ambulated without ataxia into ED room. PSYCH: euthymic, cooperative, pleasant, appropriate speech Course Vital Signs Vital signs: Vital Signs Temperature 36.3 C L 06/26/24 18:56 Pulse 76 06/26/24 18:56 Respiratory Rate 16 06/26/24 18:56 Blood Pressure 144/82 H 06/26/24 18:56 Pulse Oximetry 95 06/26/24 18:56 Temperature 36.3 C L 06/26/24 18:56 Temperature Source Oral 06/26/24 18:56 Pulse 76 06/26/24 18:56 Respiratory Rate 16 06/26/24 18:56 Respiratory Effort Normal, Non-Labored 06/26/24 19:01 Blood Pressure 144/82 H 06/26/24 18:56 Blood Pressure Position Sitting 06/26/24 18:56 Pulse Oximetry 95 06/26/24 18:56 Oxygen Delivery Method Room Air 06/26/24 18:56 Oxygen Flow Rate 0 06/26/24 18:56 Pain Level 0 06/26/24 19:01 Medical Decision Making This dictation utilizes [id number] dictation software and may contain unedited grammatical errors. 59 year-old male presents to ED today by POV/ambulating with a chief complaint of L shoulder pain, R-hand dominant, from lifting a heavy generator at work earlier- stated his shoulder hurt for a while, but is better now with onset around 1640. Quality described as no pain currently, no radiation to swelling, deformity, numbness/tingling to arm, neck pain. Severity is described as 0/10. Palliating factors include ibuprofen. Provoking factors include nothing specific. Patients' medical history: Noncontributory, no prior shoulder injury. Family and social history: Works at [employer]. Pertinent exam findings / vital signs include speeds and empty can negative, no tenderness to shoulder or trapezius or midline neck, neurovascularly intact in the left arm. Differential / pathologies of concern include sprain/strain, unlikely fracture, less likely rotator cuff injury. Diagnostic studies of: -XR L shoulder-only shows mild degenerative changes not unexpected for 59-year-old male. Interventions of: -None. ED Course/Assessment/Plan: 59-year-old male presents with a left shoulder injury while lifting heavy objects working at [employer] earlier today, wants to be checked out. He has no pain currently, no findings to suggest significant injury on exam and x-rays negative, counseled him to use RICE therapy and therapeutic dosing Tylenol and ibuprofen. Findings not consistent with rotator cuff arthropathy, fracture, dislocation. Disposition of Sprain of Left Shoulder. Patient verbalized understanding of the plan and return to ED criteria and engaged in shared decision making. Medical Records Medical records reviewed: Yes I reviewed the patient's medical records. Imaging Data Radiologic Study: Attestation: I personally reviewed and interpreted this imaging study as follows: Imaging: X-Ray Radiologist's impression: Exam: XR Left Shoulder Exam date and time: 06/26/2024 7:38 PM Age: 59 years old Clinical indication: Left; Patient HX: L shoulder pain TECHNIQUE: Imaging protocol: Radiologic exam of the left shoulder. Views: 2 or more views. COMPARISON: None. FINDINGS: Bones/joints: The humeral head demonstrates normal contour and density. The subacromial space is maintained without focal calcification. Osseous mineralization is normal. There are no inflammatory osseous erosive changes. There is minimal AC joint arthrosis. There is minimal glenoid spurring. There are no acute displaced fractures or subluxations. Soft tissues: Normal. IMPRESSION: Minimal degenerative changes of the left shoulder, as described above. Dictated and Authenticated by: Raul Murphy MD. Quality:[facility] Health Related Social Needs: No Data to Display PFSH All Active Problems (Updated 06/26/24 @ 20:21 by MARTINEZ Hawthorne) Sprain of left shoulder (Acute) Preop testing (Acute) Intraabdominal fluid collection (Acute) Perforated gastric ulcer (Acute) Pulmonary hypertension (Acute) mild per echo in 2016 COPD (chronic obstructive pulmonary disease) (Acute) Non-oxygen dependent Cardiomyopathy (Acute) EF 55% per echo in 11/2016, 41% per MPI in 08/2016. Respiratory distress (Acute) Epigastric pain (Acute) Abdominal pain (Acute) Screening for colorectal cancer (Acute) Medical History Bradycardia Depression followed by [facility] Gastric ulcer Hearing loss in right ear History of suicide attempt HTN (hypertension) Hyperlipidemia Insomnia Nightmares Obesity Prediabetes Subungual hematoma Vitamin D deficiency Surgical History Colonoscopy - [facility] (12/23/16) History of ear surgery History of esophagogastroduodenoscopy (EGD) (~02/21/21) Family History Father Stroke Mother Liver cancer Social History Smoking/Tobacco Use Status: Current every day Tobacco Type: cigarettes Years smoked: 40 Smoking risk assessment performed?: Yes Alcohol Intake: never Drug use: Never Substance use type: does not use Housing: house Current gender identity: male Do you feel safe at home: Yes Do you feel safe in your relationship?: Yes
--- NOTE | 2024-06-26 19:44 | DI.RAD_ITS ---
Exam(s) XR SHOULDER LT COMPLETE 2+V EXAM: XR SHOULDER LT COMPLETE 2+V CLINICAL HISTORY: L shoulder pain. TECHNIQUE: 2D digital imaging was performed of the left shoulder. Six images were obtained. AP, Gr ashey, Y-view and axillary views were obtained. COMPARISON: No exams were available for comparison FINDINGS: BONES: No acute fracture is present. No bony destructive lesion is seen. JOINTS: No dislocation present. Mild degenerative changes are seen at the acromioclavicular joint. SOFT TISSUE: Normal. IMPRESSION: Mild degenerative changes seen at the AC joint. DATA REPOSITORY: RADIATION DOSE DELIVERED:
--- NOTE | 2024-06-26 20:35 | DI.VRAD_ITS ---
PROCEDURE INFORMATION: Exam: XR Left Shoulder Exam date and time: 06/26/2024 7:38 PM Age: 59 years old Clinical indication: Left; Patient HX: L shoulder pain TECHNIQUE: Imaging protocol: Radiologic exam of the left shoulder. Views: 2 or more views. COMPARISON: None. FINDINGS: Bones/joints: The humeral head demonstrates normal contour and density. The subacromial space is maintained without focal calcification. Osseous mineralization is normal. There are no inflammatory osseous erosive changes. There is minimal AC joint arthrosis. There is minimal glenoid spurring. There are no acute displaced fractures or subluxations. Soft tissues: Normal. IMPRESSION: Minimal degenerative changes of the left shoulder, as described above. Dictated and Authenticated by: Raul Murphy MD. Ordering:VANESA Pedro MD
== END 2024-06-26 20:29 | disposition home or self-care (01) ==
PROVIDERS: Emergency Provider Physician Assistant; PCP Nurse Practitioner Family
DX: S43.402A Unspecified sprain of left shoulder joint, initial encounter (principal); X58.XXXA Exposure to other specified factors, initial encounter
CPT/HCPCS: 99283; 73030

== ENCOUNTER 2024-08-03 10:38 | Outpatient (REF) | payer MEDICARE, SELFPAY ==
--- OUTSIDE RECORDS SUMMARY | 2024-08-03 10:40 | XMS_ITS | Clinical Summary ---
Author Organization [facility] [place] [address] Care Team Providers Care Online Merchandising Specialist Name Role Phone Unknown Primary Care Provider Unavailabl e Allergies No known active allergies Medications Medication Sig Dispensed Refills Start Date End Date Status pantoprazole (PROTONIX) 40 mg Tablet, Delayed Release (E.C.)Indications:gas tric ulcer Take 1 tablet by mouth daily. Indications: stomach ulcer 30 tablet 3 05/09/2019 Active Active Problems Problem Noted Date Diagnosed Date Perforated gastric ulcer 04/20/2019 Encounters Date Type Department Care Team Description 07/17/2024 [place] [address] Magalis Diamond MD 07/17/2024 External Results Hematology/Oncology Unit Level [address] [place] [address] from Last 3 Months Social History Tobacco Use Types Packs/Day Years Used Date Smoking Tobacco: Never Assessed Sex and Gender Information Value Date Recorded Sex Assigned at Not on file Gender Identity Not on file Sexual Orientation Not on file Last Filed Vital Signs Vital Sign Reading Time Taken Comments Blood Pressure 144/74 04/23/2019 11:35 AM EDT Pulse 59 04/23/2019 8:00 AM EDT Temperature 36.5 ??C (97.7 ??F) 04/23/2019 12:00 PM E DT Respiratory Rate 19 04/22/2019 4:00 AM EDT Oxygen Saturation 99% 04/23/2019 11:35 AM EDT Inhaled Oxygen Concentration - - Weight 113.4 kg (250 lb) 07/31/2024 10:47 AM EST Height 177.8 cm (5' 10) 07/31/2024 10:47 AM EST Body Mass Index 35.87 07/31/2024 10:47 AM EST Plan of Treatment Health Maintenance Due Date Last Done Comments CT Colonography 1964 Colonoscopy 1964 Colorectal Cancer Screening 1964 FIT DNA 1964 FIT 1964 Sigmoidoscopy (10 year) with FIT yearly 1964 Sigmoidoscopy 1964 HIV screen 1982 Hepatitis C Screening 1982 Lipid Screening 1982 Tetanus/Diphtheria/Pertussis Vaccines (1 - Tdap) 1983 Zoster vaccine (1 of 2) 2014 Advance Directive 2019 Diabetes Screening (HgbA1C o r Glucose) 04/23/2022 04/23/2019, 04/21/2019, 04/20/2019 Covid-19 Vaccine ( - season) 2024 Influenza (Flu) vaccine (1 o f 1 - Influenza standard series) 04/23/2024 Procedures Procedure Name Priority Date/Time Associated Diagnosis Comments ORDS - PROVIDER CARE SCAN 07/26/2024 12:00 AM EST [facility] [place] EXTERNAL CARDIOLOGY RESULT Routine 07/17/2024 9:07 PM EST BASIC METABOLIC PANEL Routine 04/23/2019 12:35 AM EDT from Last 3 Months or Most Recently Relevant to Health Maintenance Results * Scan Doc: Ords - Provider Care (07/26/2024 12:00 AM EST) Narrative 07/26/2024 12:00 AM EST Ordered by an unspecified provider. Scanning Provider MEDIA MGR SCAN EXT O RDR/RSLT * External Cardiology Result (07/17/2024 9:07 PM EST) Anatomical Region Laterality Modality Other Historical Provider EXTERNAL CARDIOLO GY RESULT * (ABNORMAL) Basic Metabolic Panel (non-fasting) (04/23/2019 12:35 AM EDT) Glucose 110 65 - 199 mg/dL [facility] Comment:Diabetes: >=200 mg/d L plus symptoms Blood Urea Nitrogen 12 10 - 20 mg/dL [facility] Creatinine 0.73(L) 0.80 - 1.50 mg/dL [facility] Sodium 141 135 - 145 mmol/L [facility] Potassium 3.2(L) 3.5 - 5.0 mmol/L [facility] Comment: Please note: ??Patients with WBC >100,000 may have falsely elevated Potassium levels. ??For accurate Potassium quantification in these patients send serum separator tube (gold top) for subsequent determinations. ??Contact the Clinical Chemistry Laboratory if there are any questions. Chloride 104 98 - 107 mmol/L [facility] Carbon Dioxide 26 22 - 31 mmol/L [facility] Anion Gap 11 5 - 15 mmol/L [facility] Calcium 8.9 8.5 - 10.5 mg/dL [facility] Est Glomerular Filtration Rate 104 >=60 mL/min/1. 73 m?? [facility] Comment: The eGFR was calculated using the CKD-EPI equation. As with all creatinine based estimates of kidney function, eGFR values calculated with the CKD-EPI equation are not accurate in patients with acute kidney failure, extremes of body mass or the acutely ill. [email or web address] eGFR 121 >=60 mL/min/1. 73 m?? [facility] Comment: The eGFR was calculated using the CKD-EPI equation. As with all creatinine based estimates of kidney function, eGFR values calculated with the CKD-EPI equation are not accurate in patients with acute kidney failure, extremes of body mass or the acutely ill. [email or web address] Blood specimen (specimen) 04/23/2019 12:35 AM EDT 04/23/2019 12:53 AM EDT Narrative Resulting Agency Comment Spec In Lab Perez Barrera MD CHEMISTRY ORDERABLE S [facility] [place] [address] from Last 3 Months or Most Recently Relevant to Health Maintenance Advance Directives * Full Code (Latest Code Status on File) Date Activated Date Inactivated Comments 04/20/2019 2:39 PM 04/23/2019 4:40 PM Question Answer Comments Does patient have capacity to make decision: Yes Care Teams Online Merchandising Specialist Relationship Specialty Start Date End Date Unknown None PCP - General 02/25/21
--- OUTSIDE RECORDS SUMMARY | 2024-08-03 10:40 | XMS_ITS | Encounter Summary ---
Author Organization [facility] [place] [address] Care Team Providers Care Plow And Boring Machine Tender Name Role Phone Stanford Chu Primary Care Provider [phone] Reason for Referral * Consultation (Urgent) - Closed Specialty Diagnoses / Procedures Referred By Contac t Referred To Contact Diagnoses Gastric ulcer with perforation, unspecified chronicity Akilah Deleon APRN [facility] [place] [address] Unknown None Referral ID Status Reason Start Date Expiration Date V isits Requested Visits Authorized [id number] Closed Consult, Test & Treat 05/09/2019 11/05/2019 1 1 Encounter Details Date Type Department Care Team (Late st Contact Info) Description 05/09/2019 1:30 PM EDT Office [place] [address] Akilah Deleon LICENSE REGISTRATION EXAMINER [facility] [place] [address] Gastric ulcer with perforation, unspecified chronicity Social History Tobacco Use Types Packs/Day Years Used Date Smoking Tobacco: Never Assessed Sex and Gender Information Value Date Recorded Sex Assigned at Not on file Gender Identity Not on file Sexual Orientation Not on file documented as of this encounter Progress Notes * Akilah Deleon APRN - 05/09/2019 1:30 PM EDT Doug Smith presents today for surgical follow up. 04/20/19-04/23/19 admission to [facility] for gastric perforation though to be possibly from a chicken bone seen in the small bowel on serial CT scans. He did well with non operative treatment -04/22/19 H pylori (stool): neg Today Doug tell me he is feeling very well, he denies any fevers chills abd pain, nausea or vomiting. He is eating well, moving his bowels and voiding without difficulty. Denies any black or tarry stools. Energy and appetite excellent EXAM: Looks well, abd soft non tender, non distended Labs: WBC:6.0 Hgb:13.3 Hct:41.8 Plat:241 Impression/plan: Stable post discharge course Labs stable Have placed referral to GI for EGD to evaluate for any gastric pathology PPI daily (script written) until evaluated by GI with EGD, then therapy as directed by GI. Pt aware that this prescription has been written Otherwise, Doug may FU with us on an as needed basis D/W Dr Barrera documented in this encounter Plan of Treatment Scheduled Referrals Name Type Priority Associated Diagnoses Order Schedule Referral to Gastroenterology Outpatient Referral Routine Gastric ulcer with perforation, unspecified chronicity Ordered: 05/09/2019 documented as of this encounter Visit Diagnoses Diagnosis Gastric ulcer with perforation, unspecified chronicity documented in this encounter Care Teams Plow And Boring Machine Tender Relationship Specialty Start Date End Date Stanford Chu [place] [address] [place] [address] PCP - General General Internal Medicine 04/20/1902/24 documented as of this encounter
--- OUTSIDE RECORDS SUMMARY | 2024-08-03 10:40 | XMS_ITS | Encounter Summary ---
[place] [address] Care Team Providers Care Machine Carton Marker Name Role Phone Stanford Chu Primary Care Provider [phone] Encounter Details Date Type Department Care Team (Latest Contact Info) Description 05/09/2019 12:25 PM EDT Laboratory Appointment Lab [address] [place] [id number] Gastric ulcer with perforation, unspecified chronicity Social History Tobacco Use Types Packs/Day Years Used Date Smoking Tobacco: Never Assessed Sex and Gender Information Value Date Recorded Sex Assigned at Not on file Gender Identity Not on file Sexual Orientation Not on file documented as of this encounter Plan of Treatment Not on file documented as of this encounter Procedures Procedure Name Priority Date/Time Associated Diagnosis Comments HEMOGRAM Routine 05/09/2019 12:18 PM EDT Gastric ulcer with perforation, unspecified chronicity DIFFERENTIAL, AUTOMATED Routine 05/09/2019 12:18 PM EDT Gastric ulcer with perforation, unspecified chronicity HC CBC,PLT & AUTO DIFF Routine 05/09/2019 12:18 PM EDT Gastric ulcer with perforation, unspecified chronicity documented in this encounter Results * Differential, Automated (05/09/2019 12:18 PM EDT) Neutrophil % 52.7 % [facility] Neutrophil Absolute 3.16 1.70 - 6.10 x10(3)/[facility] Lymph % 32.4 % [facility] Lymphocytes Abs 1.9 0.9 - 3.2 x10(3)/[facility] Monocyte % 8.5 % [facility] Monocyte Abs 0.5 0.3 - 0.9 x10(3)/[facility] Eos % 5.5 % [facility] Eosinophils Abs 0.3 0.0 - 0.4 x10(3)/[facility] Basophil % 0.7 % [facility] Baso Absolute 0.0 0.0 - 0.1 x10(3)/[facility] Immature Gran % 0.20 % [facility] Comment: Immature granulocytes(IG's)percentage and absolute count will include metamyelocytes, myelocytes, and promyelocytes. Blood smears from CBCs yielding IG's will be scanned manually for concordance. If this scan disagrees with the automated IG or if promyelocytes are noted, a manual differential will be performed. Immature Gran Absolute 0.01 0.00 - 0.04 x10(3)/[facility] Blood specimen (specimen) 05/09/2019 12:18 PM EDT 05/09/2019 12:26 PM EDT Narrative Resulting Agency Comment Spec In Lab Akilah Deleon [employer] H[employer]AT[employer] ORDERAB LES [facility] [place] [address] * (ABNORMAL) Hemogram (05/09/2019 12:18 PM EDT) White Blood Cell 6.0 4.0 - 9.5 x10(3)/ L [facility] Red Blood Cell 4.65 4.58 - 5.54 x10(6)/ L [facility] Hemoglobin 13.3(L) 13.7 - 16.5 gm/dL [facility] Hematocrit 41.8 40.5 - 48.5 % [facility] Mean Cell Volume 89.9 82.9 - 93.1 fL [facility] Mean Cell Hemoglobin 28.6 27.5 - 32.1 pg [facility] Mean Cell Hemoglobin Concentration 31.8(L) 32.0 - 35.7 gm/dL [facility] Platelet 241 145 - 357 x10(3)/mc L [facility] RDW Standard Deviation 45.0 36.0 - 45.0 fL [facility] RDW coefficient of variation 13.6 11.4 - 13.8 % [facility] Mean Platelet Volume 9.8 7.6 - 12.9 fL [facility] NRBC% auto 0.0 % [facility] NRBC Absolute 0.000 0.000 - 0.000 x10(3)/mc L [facility] Blood specimen (specimen) 05/09/2019 12:18 PM EDT 05/09/2019 12:26 PM EDT Narrative Resulting Agency Comment Spec In Lab Akilah Deleon [employer]AT[employer] ORDERAB LES [facility] [place] [address] documented in this encounter Visit Diagnoses Diagnosis Gastric ulcer with perforation, unspecified chronicity documented in this encounter Care Teams Machine Carton Marker Relationship Specialty Start Date End Date Stanford Chu PA [address] [place] [address] PCP - General General Internal Medicine 04/20/1902/24 documented as of this encounter
--- OUTSIDE RECORDS SUMMARY | 2024-08-03 10:40 | XMS_ITS | Data Portability ---
Author Organization [place] [facility] Address [address] [place] [address] Assessment No assessment recorded. Plan of Treatment Reminders Order Date Submit Date Provider Last Modified By Organization Details Last Modified Time Details Appointments Follow Up 2023 09:00A Jaime Lorraine Dorsey Not available Not available Not available Follow Up 30 2024 09:40A Jaime Lorraine Dorsey Not available Not available Not available Annual Wellne ss Exam 40 2024 08:00A Jaime Lorraine Dorsey Not available Not available Not available Lab magnes ium, serum or plasma 2023 024 [facility] (Registration ), [address] [place] [address] Dr [facility] [place], [address], 01/27/2024 11:33:03 BMP, serum or plasma 2023 024 [email or web address] [facility] (Registration ), [address] [place] [address] [place], [address], 01/27/2024 11:32:54 PSA, serum or plasma 2023 024 [email or web address] [facility] (Registration ), [address] [place] [address] [place], [address], 04/13/2024 11:20:27 urinal ysis, dipsti ck 2023 [email or web address] [address] [place] [address], [address], 04/06/2024 12:43:08 Referral None record ed. Procedures None record ed. Surgeries None record ed. Imaging None record ed. Medication Orders None record ed. Patient TargetsNo targets recorded. Patient InstructionsNo instructions recorded. Reason for Referral None Reported. Results Created Date Observation Date Name Description Value Unit Range Abnormal Flag Note LastModifiedBy Organization Detail LastModifiedTime 01/13/20 24 01/13/2024 BASIC METAB OLIC PANEL calcium 9.0 mg/dL 8.5-10 .1 normal Not Available [address] [facility] [place], [address] 01/13/2024 16:58:42 01/13/20 24 01/13/2024 BASIC METAB OLIC PANEL glucose 94 mg/dL 74-106 normal Not Available Leonarda cobb [address] [facility] [place], [address] 01/13/2024 16:58:42 01/13/20 24 01/13/2024 BASIC METAB OLIC PANEL BUN 18 mg/dL 7-18 normal Not Available Leonarda cobb [address] [facility] [place], [address] 01/13/2024 16:58:42 01/13/20 24 01/13/2024 BASIC METAB OLIC PANEL creatinine 0.8 mg/dL 0.70-1 .30 normal Not Available [address] [facility] [place], [address] 01/13/2024 16:58:42 01/13/20 24 01/13/2024 BASIC METAB OLIC PANEL estimated GFR 101.95 mL/min /1.73m 2 The eGFR is calcu lated from a serum creat inine using the CKD-E PI 2020 equat ion. Other varia bles requi red for the equat ion are gende r and age; this equat ion does not inclu de a race coeff icien t. This equat ion has simil ar overa ll perfo rmanc e to previ ous equat ions excep t value s may diffe r, in parti cular , in patie nts with highe r value s of eGFR and young er-ag ed adult s. Not Available [address] [facility] [place], [address] 01/13/2024 16:58:42 01/13/20 24 01/13/2024 BASIC METAB OLIC PANEL sodium 137 mmol/ L 136-14 5 normal Not Available [address] [place], [address] 01/13/2024 16:58:42 01/13/20 24 01/13/2024 BASIC METAB OLIC PANEL potassium 3.9 mmol/ L 3.5-5. 1 normal Not Available [address] [place], [address] 01/13/2024 16:58:42 01/13/20 24 01/13/2024 BASIC METAB OLIC PANEL chloride 102 mmol/ L 98-107 normal Not Available [address] [place], [address] 01/13/2024 16:58:42 01/13/20 24 01/13/2024 BASIC METAB OLIC PANEL CO2 25.6 mmol/ L 21.0-3 2.0 normal Not Available [address] [place], [address] 01/13/2024 16:58:42 01/13/20 24 01/13/2024 BASIC METAB OLIC PANEL anion gap 9.4 mmol/ L 3-11 normal Not Available [address] [place], [address] 01/13/2024 16:58:42 01/13/20 24 01/13/2024 MAGNE SIUM magnesium 2.2 mg/dL 1.8-2. 4 normal Not Available [address] [place], [address] 01/13/2024 16:58:43 03/24/20 24 03/24/2024 COMPL ETE BLOOD COUNT W/DIF F WBC 3.82 10_3/ uL 4.4-10 .8 low Not Available [address] [place], [address] 03/24/2024 17:03:07 03/24/20 24 03/24/2024 COMPL ETE BLOOD COUNT W/DIF F RBC 4.53 10_6/ uL 4.36-5 .78 normal Not Available [address] [place], [address] 03/24/2024 17:03:07 03/24/20 24 03/24/2024 COMPL ETE BLOOD COUNT W/DIF F HGB 13.3 g/dL 13.5-1 7.5 low Not Available [address] [place], [address] 03/24/2024 17:03:07 03/24/20 24 03/24/2024 COMPL ETE BLOOD COUNT W/DIF F HCT 40.6 % 40.0-5 0.0 normal Not Available [address] [place], [address] 03/24/2024 17:03:07 03/24/20 24 03/24/2024 COMPL ETE BLOOD COUNT W/DIF F MCV 90 fL 80-95 normal Not Available Leonarda [address] [place], [address] 03/24/2024 17:03:07 03/24/20 24 03/24/2024 COMPL ETE BLOOD COUNT W/DIF F MCH 29.4 pg 27.0-3 3.0 normal Not Available [address] [place], [address] 03/24/2024 17:03:07 03/24/20 24 03/24/2024 COMPL ETE BLOOD COUNT W/DIF F MCHC 32.8 % 32.0-3 6.0 normal Not Available [address] [place], [address] 03/24/2024 17:03:07 03/24/20 24 03/24/2024 COMPL ETE BLOOD COUNT W/DIF F RDW 13.1 % 11.8-1 4.1 normal Not Available [address] [place], [address] 03/24/2024 17:03:07 03/24/20 24 03/24/2024 COMPL ETE BLOOD COUNT W/DIF F platelet count 164 10_3/ uL 130-40 0 normal Not Available [address] [place], [address] 03/24/2024 17:03:07 03/24/20 24 03/24/2024 COMPL ETE BLOOD COUNT W/DIF F MPV 9.7 fL 8.0-11 .0 normal Not Available [address] [place], [address] 03/24/2024 17:03:07 03/24/20 24 03/24/2024 COMPL ETE BLOOD COUNT W/DIF F neutrophils % 46.9 % Not Available [address] [place], [address] 03/24/2024 17:03:07 03/24/20 24 03/24/2024 COMPL ETE BLOOD COUNT W/DIF F lymphocytes % 39.3 % Not Available [address] [place], [address] 03/24/2024 17:03:07 03/24/20 24 03/24/2024 COMPL ETE BLOOD COUNT W/DIF F monocytes % 7.3 % Not Available [address] [place], [address] 03/24/2024 17:03:07 03/24/20 24 03/24/2024 COMPL ETE BLOOD COUNT W/DIF F eosinophils % 5.0 % Not Available [address] [place], [address] 03/24/2024 17:03:07 03/24/20 24 03/24/2024 COMPL ETE BLOOD COUNT W/DIF F basophils % 1.0 % Not Available [address] [place], [address] 03/24/2024 17:03:07 03/24/20 24 03/24/2024 COMPL ETE BLOOD COUNT W/DIF F immature grans % 0.5 % Not Available [address] [place], [address] 03/24/2024 17:03:07 03/24/20 24 03/24/2024 COMPL ETE BLOOD COUNT W/DIF F nucleated RBC 0.0 % 0.0-0. 3 normal Not Available [address] [place], [address] 03/24/2024 17:03:07 03/24/20 24 03/24/2024 COMPL ETE BLOOD COUNT W/DIF F absolute neutrophil count 1.79 10_3/ uL 1.2-6. 7 normal Not Available [address] [place], [address] 03/24/2024 17:03:07 03/24/20 24 03/24/2024 COMPL ETE BLOOD COUNT W/DIF F absolute lymphocyte count 1.50 10_3/ uL 1.2-3. 4 normal Not Available [address] [place], [address] 03/24/2024 17:03:07 03/24/20 24 03/24/2024 COMPL ETE BLOOD COUNT W/DIF F absolute monocyte count 0.28 10_3/ uL 0.1-0. 8 normal Not Available [address] [place], [address] 03/24/2024 17:03:07 03/24/20 24 03/24/2024 COMPL ETE BLOOD COUNT W/DIF F absolute eosinophil count 0.19 10_3/ uL 0.0-0. 7 normal Not Available [address] [place], [address] 03/24/2024 17:03:07 03/24/20 24 03/24/2024 COMPL ETE BLOOD COUNT W/DIF F absolute basophil count 0.04 10_3/ uL 0.0-0. 2 normal Not Available [address] [place], [address] 03/24/2024 17:03:07 03/24/20 24 03/24/2024 COMPR EHENS ANIYA METAB OLIC PANEL calcium 8.5 mg/dL 8.5-10 .1 normal Not Available [address] [place], [address] 03/24/2024 17:39:14 03/24/20 24 03/24/2024 COMPR EHENS ANIYA METAB OLIC PANEL glucose 190 mg/dL 74-106 high Not Available [address] [place], [address] 03/24/2024 17:39:14 03/24/20 24 03/24/2024 COMPR EHENS ANIYA METAB OLIC PANEL BUN 17 mg/dL 7-18 normal Not Available Leonarda cobb [address] [place], [address] 03/24/2024 17:39:14 03/24/20 24 03/24/2024 COMPR EHENS ANIYA METAB OLIC PANEL creatinine 1.0 mg/dL 0.70-1 .30 normal Not Available [address] [place], [address] 03/24/2024 17:39:14 03/24/20 24 03/24/2024 COMPR EHENS ANIYA METAB OLIC PANEL estimated GFR 86.70 mL/min /1.73m 2 The eGFR is calcu lated from a serum creat inine using the CKD-E PI 2020 equat ion. Other varia bles requi red for the equat ion are gende r and age; this equat ion does not inclu de a race coeff icien t. This equat ion has simil ar overa ll perfo rmanc e to previ ous equat ions excep t value s may diffe r, in parti cular , in patie nts with highe r value s of eGFR and young er-ag ed adult s. Not Available [address] [place], [address] 03/24/2024 17:39:14 03/24/20 24 03/24/2024 COMPR EHENS ANIYA METAB OLIC PANEL total protein 6.9 g/dL 6.4-8. 2 normal Not Available [address] [place], [address] 03/24/2024 17:39:14 03/24/20 24 03/24/2024 COMPR EHENS ANIYA METAB OLIC PANEL albumin 3.5 g/dL 3.4-5. 0 normal Not Available [address] [place], [address] 03/24/2024 17:39:14 03/24/20 24 03/24/2024 COMPR EHENS ANIYA METAB OLIC PANEL bilirubin, total 0.30 mg/dL 0.2-1. 0 normal Not Available [address] [place], [address] 03/24/2024 17:39:14 03/24/20 24 03/24/2024 COMPR EHENS ANIYA METAB OLIC PANEL alk phos 78 U/L 46-116 normal Not Available [address] [place], [address] 03/24/2024 17:39:14 03/24/20 24 03/24/2024 COMPR EHENS ANIYA METAB OLIC PANEL sodium 143 mmol/ L 136-14 5 normal Not Available [address] [place], [address] 03/24/2024 17:39:14 03/24/20 24 03/24/2024 COMPR EHENS ANIYA METAB OLIC PANEL potassium 2.9 mmol/ L 3.5-5. 1 critical low Criti juan f value repor hannah to and readb ack from [facility] at 1722 03/24 by LAB.L AUT Not Available [address] [place], [address] 03/24/2024 17:39:14 03/24/20 24 03/24/2024 COMPR EHENS ANIYA METAB OLIC PANEL chloride 107 mmol/ L 98-107 normal Not Available [address] [place], [address] 03/24/2024 17:39:14 03/24/20 24 03/24/2024 COMPR EHENS ANIYA METAB OLIC PANEL CO2 27.8 mmol/ L 21.0-3 2.0 normal Not Available [address] [place], [address] 03/24/2024 17:39:14 03/24/20 24 03/24/2024 COMPR EHENS ANIYA METAB OLIC PANEL anion gap 8.2 mmol/ L 3-11 normal Not Available [address] [place], [address] 03/24/2024 17:39:14 03/24/20 24 03/24/2024 COMPR EHENS ANIYA METAB OLIC PANEL AST 15 U/L 15-37 normal Not Available Leonarda [address] [place], [address] 03/24/2024 17:39:14 03/24/20 24 03/24/2024 COMPR EHENS ANIYA METAB OLIC PANEL ALT 25 U/L 16-63 normal Not Available Leonarda cobb [address] [place], [address] 03/24/2024 17:39:14 03/24/20 24 03/24/2024 TSH (W/RE F FT4) TSH (w/ref FT4) 1.31 uIU/m L 0.36-3 .74 normal Not Available [address] [place], [address] 03/24/2024 17:26:11 03/24/20 24 03/24/2024 ACETA MINOP HEN acetaminophe n < 2 ug/mL 10-30 Not Available [facility] [address] [place], [address] 03/24/2024 17:32:11 03/24/20 24 03/24/2024 SALIC YLATE salicylate < 2.8 mg/dL <2.8 Thera peuti c Range is 2.8-2 0.0 mg/dL Not Available [address] [place], [address] 03/24/2024 17:32:12 03/24/20 24 03/24/2024 ETHYL ALCOH OL ethyl alcohol < 3.0 mg/dL <10 Resul t verif ied by dilut ion and repea t jhony sis ETOH Refer ence Range = <10 mg/dL Legal Limit of Intox icati on is 80 mg/dL This test is inten ded only for Medic al purpo ses. Divid e resul t by 1000 to conve rt to %(w/v ) Not Available [address] [place], [address] 03/24/2024 17:39:15 03/24/20 24 03/24/2024 TSH (W/RE F FT4) TSH (w/ref FT4) 1.31 uIU/m L 0.36-3 .74 normal Not Available [address] [place], [address] 03/24/2024 17:39:15 03/24/20 24 03/24/2024 URINA LYSIS color YELLOW yellow Not Available Leonarda cobb [address] [place], [address] 03/24/2024 17:45:25 03/24/20 24 03/24/2024 URINA LYSIS clarity CLEAR clear Not Available Leonarda cobb [address] [place], [address] 03/24/2024 17:45:25 03/24/20 24 03/24/2024 URINA LYSIS specific gravity 1.020 1.005- 1.025 normal Not Available [address] [place], [address] 03/24/2024 17:45:25 03/24/20 24 03/24/2024 URINA LYSIS pH 5.5 5-8 normal Not Available Leonarda cobb [address] [place], [address] 03/24/2024 17:45:25 03/24/20 24 03/24/2024 URINA LYSIS leukocyte esterase NEGATI VE negati ve Not Available [address] [place], [address] 03/24/2024 17:45:25 03/24/20 24 03/24/2024 URINA LYSIS nitrite NEGATI VE negati ve Not Available [address] [place], [address] 03/24/2024 17:45:25 03/24/20 24 03/24/2024 URINA LYSIS protein NEGATI VE mg/dL neg-tr tatianna Not Available [address] [place], [address] 03/24/2024 17:45:25 03/24/20 24 03/24/2024 URINA LYSIS glucose NEGATI VE mg/dL negati ve Not Available [address] [place], [address] 03/24/2024 17:45:25 03/24/20 24 03/24/2024 URINA LYSIS ketones NEGATI VE mg/dL negati ve Not Available [address] [place], [address] 03/24/2024 17:45:25 03/24/20 24 03/24/2024 URINA LYSIS urobilinogen 1.0 mg/dL up to 0.2 abnormal Not Available [address] [place], [address] 03/24/2024 17:45:25 03/24/20 24 03/24/2024 URINA LYSIS bilirubin NEGATI VE negati ve Not Available [address] [place], [address] 03/24/2024 17:45:25 03/24/20 24 03/24/2024 URINA LYSIS blood NEGATI VE negati ve Not Available [address] [place], [address] 03/24/2024 17:45:25 03/24/20 24 03/24/2024 URINE DRUG SCREE N ([facility] ) methadone NEGATI VE negati ve Not Available [address] [place], [address] 03/24/2024 18:11:23 03/24/20 24 03/24/2024 URINE DRUG SCREE N ([facility] ) benzodiazepi cathie NEGATI VE negati ve Benzo diaze pines are exten sivel y metab olize d and the paren t compo und may not be detec hannah in urine . If clini juan f suspi cion is high, pleas e notif y Lab for send- out testi ng. Not Available [address] [place], [address] 03/24/2024 18:11:23 03/24/20 24 03/24/2024 URINE DRUG SCREE N ([facility] ) cocaine NEGATI VE negati ve Not Available [address] [place], [address] 03/24/2024 18:11:23 03/24/20 24 03/24/2024 URINE DRUG SCREE N ([facility] ) amphetamines NEGATI VE negati ve Not Available [address] [place], [address] 03/24/2024 18:11:23 03/24/20 24 03/24/2024 URINE DRUG SCREE N ([facility] ) tetrahydroca nnabinol NEGATI VE negati ve Not Available [address] [place], [address] 03/24/2024 18:11:23 03/24/20 24 03/24/2024 URINE DRUG SCREE N ([facility] ) opiates NEGATI VE negati ve Not Available [address] [place], [address] 03/24/2024 18:11:23 03/24/20 24 03/24/2024 URINE DRUG SCREE N ([facility] ) barbiturates NEGATI VE negati ve Not Available [address] [place], [address] 03/24/2024 18:11:23 03/24/20 24 03/24/2024 URINE DRUG SCREE N ([facility] ) tricyclic antidepressa nts NEGATI VE negati ve T his test is not suita ble for legal purpo ses Cutof f hardik ntrat ions for each drug class are: MTD 300 ng/mL BZO 200 ng/mL ANURAG 300 ng/mL * AMP 1000 ng/mL * THC 50 ng/mL OPI 300 ng/mL BAR 200 ng/mL TCA 1000 ng/mL *Paulie mmend ed scree aravind cutof f hardik ntrat ions by the subst ance abuse and menta l healt h servi tonio admin istra tion. This test provi tommy preli minar y resul ts. A more speci fic alter debbie metho d such as GC/MS is the prefe rred confi rmato ry metho d. Notif y the Labor atory withi n 72 hours of repor t date if you zonia e confi rmati on. Presc ribed medic ation s may give posit aniya resul ts and must be consi dered prior to inter preta tion of these resul ts. Not Available [address] [place], [address] 03/24/2024 18:11:23 03/24/20 24 03/24/2024 POTAS SIUM potassium 3.5 mmol/ L 3.5-5. 1 normal Not Available [address] [place], [address] 03/24/2024 19:25:28 04/06/20 24 04/07/2024 PSA, SCREE ARAVIND PSA, screening 1.2 NG/mL <=3.5 NOTE: Serum PSA hardik ntrat ion shoul d not be inter prete d as absol farida evide nce for the prese nce or absen ce of jason ortez se. Assay ed on Sieme ns [facility] XPT using chemi lumin escen t techn ology . Value s obtai jayla by using diffe rent assay metho ds canno t be used inter morel eably . Test perfo rmed or refer red by [facility] [address] [place] [address] Not Available [facility] [address] [place], [address] 04/07/2024 09:17:40 04/06/20 24 04/06/2024 urina lysis , dipst ick Leukocytes Negati ve Not Available [address], [address], 04/06/2024 11:44:38 04/06/20 24 04/06/2024 urina lysis , dipst ick Nitrite negati ve Not Available [address], [address], 04/06/2024 11:44:38 04/06/20 24 04/06/2024 urina lysis , dipst ick Urobilinogen .2 Not Available [address], [address], 04/06/2024 11:44:38 04/06/20 24 04/06/2024 urina lysis , dipst ick Protein Negati ve Not Available [address], [address], 04/06/2024 11:44:38 04/06/20 24 04/06/2024 urina lysis , dipst ick pH 5.0 Not Available [address], [address], 04/06/2024 11:44:38 04/06/20 24 04/06/2024 urina lysis , dipst ick Blood Negati ve Not Available [address], [address], 04/06/2024 11:44:38 04/06/20 24 04/06/2024 urina lysis , dipst ick Specific Corrigan 1.005 Not Available [facility] [address] [place], [address], 04/06/2024 11:44:38 04/06/20 24 04/06/2024 urina lysis , dipst ick Ketone Negati ve Not Available [address], [address], 04/06/2024 11:44:38 04/06/20 24 04/06/2024 urina lysis , dipst ick Bilirubin Negati ve Not Available [address], [address], 04/06/2024 11:44:38 04/06/20 24 04/06/2024 urina lysis , dipst ick Glucose Negati ve Not Available [address], [address], 04/06/2024 11:44:38 04/06/20 24 04/06/2024 urina lysis , dipst ick Appearance Clear Not Available [address], [address], 04/06/2024 11:44:38 04/06/20 24 04/06/2024 urina lysis , dipst ick Color Pale Yellow Not Available [address], [address], 04/06/2024 11:44:38 05/08/2003/19/2022 LDCT, chest , for lung cance r scree aravind No observ ation record ed. Not Available 05/08 01:49:42 05/08/2005/27/2023 LDCT, chest , for lung cance r scree aravind No observ ation record ed. Not Available 05/08 01:49:43 05/08/20 24 12/20/2020 LDCT, chest , for lung cance r scree aravind No observ ation record ed. Not Available 05/08 01:49:44 05/08/20 24 04/19/2019 XR, chest No observ ation record ed. Not Available 05/08 01:49:46 05/08/20 24 12/20/2020 XR, chest No observ ation record ed. Not Available 05/08 01:49:47 05/08/20 24 04/18/2019 CT, abdom en No observ ation record ed. Not Available 05/08 01:49:48 05/08/20 24 04/20/2019 CT, abdom en No observ ation record ed. Not Available 05/08 01:49:49 05/08/20 24 04/17/2019 imagi ng/di agnos tic resul t No observ ation record ed. Not Available 05/08 01:49:54 05/08/20 24 04/17/2019 imagi ng/di agnos tic resul t No observ ation record ed. Not Available 05/08 01:49:55 05/08/20 24 04/20/2019 imagi ng/di agnos tic resul t No observ ation record ed. Not Available 05/08 01:49:56 05/08/20 24 04/18/2019 imagi ng/di agnos tic resul t No observ ation record ed. Not Available 05/08 01:50:04 05/08/20 24 04/18/2019 imagi ng/di agnos tic resul t No observ ation record ed. Not Available 05/08 01:50:05 05/08/20 24 04/18/2019 imagi ng/di agnos tic resul t No observ ation record ed. Not Available 05/08 01:50:06 05/08/20 24 04/13/2022 imagi ng/di agnos tic resul t No observ ation record ed. Not Available 05/08 01:50:10 05/08/20 24 04/19/2019 imagi ng/di agnos tic resul t No observ ation record ed. Not Available 05/08 01:51:03 05/08/20 24 01/02/2021 imagi ng/di agnos tic resul t No observ ation record ed. Not Available 05/08 01:51:15 05/08/20 24 04/13/2022 imagi ng/di agnos tic resul t No observ ation record ed. Not Available 05/08 01:51:31 05/08/20 24 02/17/2022 imagi ng/di agnos tic resul t No observ ation record ed. Not Available 05/08 01:51:40 06/26/20 24 06/26/2024 XR, shoul ciaran Patien t Name: Elias Smithyao Huggins Unit #: [id number] Loc: ER Orderi ng Provid er: Accoun t #: [id number] Status : REG ER Primar y Care Provid er: Indra weiss-Zachary wSunil Date of Exam : Sex: M : 1964 Age: 59 Exam(s ) PROCED URE INFORM ATION: Exam: XR Left Should er Exam date and time: 024 7:38 PM Age: 59 years old Clinic al indica tion: Left; Patien t HX: L should er pain TECHNI QUE: Imagin g protoc ol: Radiol ogic exam of the left should er. Views: 2 or more views. COMPAR TASNEEM: None. FINDIN GS: Bones/ joints : The heidi l head demons trates normal contou r and densit y. The subacr omial space is mainta ined withou t focal calcif icatio n. Osseou s minera lizati on is normal . There are no inflam matory osseou s erosiv e change s. There is minima l AC joint arthro sis. There is minima l glenoi d spurri ng. There are no acute displa mane fractu res or sublux ations . Soft tissue s: Normal . IMPRES ANGY: Minima l degene rative change s of the left should er, as descri bed above. Dictat ed and Mehnaz kumar d by: Raul leblanc MD. Orderi ng:Luciana Pedro MD Access ion#=[id number] Ngozi d By: CC: ------ ------ ------ ------ ------ ------ ------ ------ ------ ------ ------ ------ ---- Dictat ed By: Report s vrad 1938 Transc ribed By: Di Merge 1938 This is privil eged, confid ential inform ation intend ed only for the provid er named. Any use or distri bution by any person other than this provid er is strict ly prohib ited. If you receiv e this report in error, please notify us immedi ately at [phone] and return the origin al report to us at the addres s above. Thank- you. joan dougherty [facility] [address] [place], [address] 06/29/2024 19:51:46 06/27/2006/27/2024 x-ray imagi ng repor t Patien t Name: Faustino Smith Bhavna Unit #: [id number] Loc: ER Orderroxanne ruby Provid er: Joe Hidalgo Accoun t #: [id number] Status : DEP ER Primar y Care Provid er: Indra ce-Zachary Sunil james Date of Exam : Sex: M Admiss ion Date: : 1964 Age: 59 Exam(s ) XR SHOULD ER LT COMPLE TE 2+V EXAM: XR SHOULD ER LT COMPLE TE 2+V CLINIC AL HISTOR Y: L should er pain. TECHNI QUE: 2D digita l imagin g was perfor med of the left should er. Six images were obtain ed. AP, Grashe y, Y-view and axilla ry views were obtain ed. COMPAR TASNEEM: No exams were availa ble for compar tasneem FINDIN GS: BONES: No acute fractu re is presen t. No bony destru ctive lesion is seen. JOINTS : No disloc ation presen t. Mild degene rative change s are seen at the acromi oclavi cular joint. SOFT TISSUE : Normal . IMPRES ANGY: Mild degene rative change s seen at the AC joint. DATA REPOSI TORY: RADIAT ION DOSE DELIVE RED: Ordere d By: Joe Hidalgo CC: ------ ------ ------ ------ ------ ------ ------ ------ ------ ------ ------ ------ - Dictat ed By: Mendoza Templeton M.D. 718 Transc ribed By: Mendoza Templeton 718 This is privil eged, confid ential inform ation intend ed only for the provid er named. Any use or distri bution by any person other than this provid er is strict ly prohib ited. If you receiv e this report in error, please notify us immedi ately at [phone] and return the origin al report to us at the addres s above. Thank- you. INTERFACE [address] , [place], [address] 06/27/2024 07:25:10 Result Notes None recorded. 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 Nonische mimi LORRAINE HOFF, [facility] [address], [place], [address] , [facility] 4 09:29:25 Pain in left foot 27866686276 9107 Active 2023 MAURY VALENTE-LAQUITA [address], [place], [address] , [facility] 4 09:40:38 Hearing loss of right ear 325782735 Active 2014 Problem Code: H91.91; Problem Code Type: ICD-10; Alise riddle, [facility] 4 11:14:29 Major depressi on, single episode 95691498 Active 201403/30/20 22 - Comments only - Lorraine Heard [facility]- - - I am concerne d that he has stopped his fluoxeti ne and risperid one, prescrib ed by [facility]. Doug does insist that he is doing very well mood [place] and does not need these medicati ons. He has now been off them for over a month. He states that he informed [facility] about disconti nuing these medicati ons. I did let him know that I would be relating this informat ion to them as well. Problem Code: F32.9; Problem Code Type: ICD-10; Alise riddle [facility], [facility] 4 11:15:01 Nicotine dependen ce 19602561 Active 201401/07/20 23 - Comments only - Lorraine Heard [facility]- - - LDCT order sent to [facility] tobacco cessatio n and offered support; he states when current supply of cigarett es is gone he plant to quit, but he has said this on several occasion s over the past 2-3 years. Problem Code: F17.200; Problem Code Type: ICD-10; Not Available [facility] 3 05:28:21 Obesity 338835601 Active 2014 Problem Code: E66.9; Problem Code Type: ICD-10; Alise riddle, [facility] 4 11:15:16 Choleste atoma of middle ear 78303144 Active 2014 Problem Code: H71.90; Problem Code Type: ICD-10; Not Available [facility] 3 05:28:21 Chronic obstruct aniya pulmonar y disease 21718931 Active 201403/30/20 22 - Comments only - Lorraine Heard [facility] - - He has now been off his Incruse Ellipta and his albutero l for over a month, and denies any breathin g difficul ties, other than occasion al cough, which he attribut es to his smoking. -I did encourag e him to continue to have albutero l on hand for use as needed for tightnes s, wheezing , or cough, however he declines this, and has stopped all of his medicati ons. -He does continue to smoke, and again I have strongly encourag ed him to cut back or quit, however he states he does not plan to do this. -His low-dose CT, done late last month, was lung RADS 1. Problem Code: J44.9; Problem Code Type: ICD-10; Alise riddle, [facility], [facility]. 4 11:13:04 Dilated cardiomy opathy 466082503 Active 2016 Problem Code: I42.0; Problem Code Type: ICD-10; Alise riddle [facility] 4 11:13:43 Adult health examinat ion Active 201601/07/20 23 - Comments only - Lorraine Heard [facility] - - Prevnar2 0 given today - LDCT ordered - PSA drawn - CRC screenin g up to date - F/U in 1 year, sooner prn Problem Code: Z00.00; Problem Code Type: ICD-10; Not Available [facility] 3 05:28:21 Bradycar kylee 32813903 Active 201704/17/20 22 - Comments only - Lorraine Heard [facility] - Holter monitor off metoprol ol showed NSR,aAve rage heart rate was 59. Minimum was 39, maximum 123 There were very rare atrial and ventricu lar ectopic beats There were several self-sanchez ited atrial runs the longest of which was 11 beats in duration There was no atrial fibrilla tion, no high-gra de AV block, no pauses greater than 3 seconds No patient symptoms were reported Signed off by Dr Lane. Will Fax copy to her office with ? re: any further steps recommen ded? Problem Code: R00.1; Problem Code Type: ICD-10; Alise riddle, [facility] 4 11:12:21 Abnormal weight gain 518980100 Completed 201805/04/2024 Problem Code: R63.5; Problem Code Type: ICD-10; LORRAINE HOFF [place] [address], [place], [address] [facility] 4 11:33:56 Dyspnea 002647368 Active 2018 Problem Code: R06.02; Problem Code Type: ICD-10; Not Available [facility] 3 05:28:22 Gastric ulcer 911939536 Active 03/30/20 22 - Comments only - Lorraine Heard [facility] - - He stopped pantopra zole 40 mg daily over a month ago, per his choice. He denies any epigastr ic pain or reflux symptoms . -We will continue to monitor, and encourag ed him to restart medicati on if needed. Problem Code: K25.9; Problem Code Type: ICD-10; [facility] r[facility] - [facility]ate | mentor | invest [facility]. 4 11:14:25 Counseli tung Active 202101/03/20 22 - Comments only - Lorraine Heard [facility] - - Discusse d strategi es for remember ing to take his medicati ons daily - He will try putting his meds next to the coffee pot Problem Code: Z71.89; Problem Code Type: ICD-10; Not Available [facility] 3 05:28:22 Dental caries 27581476 Completed 202105/04/2024 01/03/20 22 - Comments only - Lorraine Heard [facility] - - I will check with our communit y resource s coordina jadyn about options for dental care for Doug, and we will let him know what I find. Problem Code: K02.9; Problem Code Type: ICD-10; LORRAINE HOFF [facility] [address], [place], [address] [facility] 4 11:33:42 Disorder of external ear 88090221 Active 202101/07/20 23 - Comments only - Lorraine Heard [facility] - - He will use Debrox gtts and return prn for ear flush Problem Code: H61.899; Problem Code Type: ICD-10; Not Available [facility] 3 05:28:23 [facility] Active 202201/07/20 23 - Comments only - Lorraine Heard [facility] - - Unclear reason for this. Will refer to PT for evaluati on Problem Code: R27.9; Problem Code Type: ICD-10; Alise riddle, [facility] 4 11:14:58 Alcohol abuse 04848248 Active 2022 Problem Code: F10.99; Problem Code Type: ICD-10; Alise riddle [facility] 4 11:11:56 Delay when starting to pass urine 9007959 Active 202201/07/20 23 - Comments only - Lorraine Heard [facility] - - No symptoms suggesti ve of UTI, no hematuri a. Discusse d benefits , limitati ons, and risks associat ed with PSA screenin g, and he would like this checked. - Consider tamsulos in 0.4mg po qd Problem Code: R39.11; Problem Code Type: ICD-10; Alise riddle [facility]. 4 11:13:23 Pain of left shoulder joint 33211018421 948219 Completed 202206/03/2023 Problem Code: M25.512; Problem Code Type: ICD-10; Not Available [facility] 4 05:36:42 Disabili ty affectin g daily living 609010063 Completed 201201/15/2016 Problem Code: Z73.6; Problem Code Type: ICD-10; Not Available [facility] 3 05:28:25 Chest pain 36439201 Completed 201503/09/2019 Problem Code: R07.9; Problem Code Type: ICD-10; Not Available [facility] 3 05:28:26 Abscess of skin and/or subcutan eous tissue 29792778 Completed 201503/09/2019 Problem Code: L02.91; Problem Code Type: ICD-10; Not Available [facility] 3 05:28:27 Intellec tual function ing disabili ty 910873083 Completed 201205/19/2023 Problem Code: 317; Problem Code Type: ICD-9; Not Available [facility] 3 05:28:28 Asthma 154055004 Completed 201401/15/2016 Problem Code: J45.998; Problem Code Type: ICD-10; Not Available [facility] 3 05:28:28 Cardiomy opathy 60246292 Completed 201605/19/2023 Nonische mimi LORRAINE HOFF, [facility] [address], [place], [address] , [facility]. 4 09:29:25 Disorder of nail 38736035 Completed 202001/06/2023 Problem Code: L60.8; Problem Code Type: ICD-10; Not Available [facility] 3 05:28:29 Prediabe geno 878522703 Completed 201801/02/2022 Problem Code: R73.03; Problem Code Type: ICD-10; Not Available [facility] 3 05:28:30 Therapeu tic drug monitori ng assay 13712506 Completed 201703/29/2022 Problem Code: Z51.81; Problem Code Type: ICD-10; Not Available [facility] 3 05:28:30 Low back pain 995809757 Completed 201703/09/2019 Problem Code: M54.5; Problem Code Type: ICD-10; Not Available [facility] 3 05:28:31 Asthma 959121918 Completed 201201/14/2016 Not Available [facility] 3 05:28:33 Hypergly cemia 20290095 Completed 201805/19/2023 Problem Code: R73.9; Problem Code Type: ICD-10; Not Available [facility] 3 05:28:34 Hyperlip idemia 98263704 Completed 201401/06/2023 Problem Code: E78.5; Problem Code Type: ICD-10; Not Available [facility] 3 05:28:35 [facility] hyperten angy 89256301 Completed 201603/30/2022 Problem Code: I10; Problem Code Type: ICD-10; Not Available [facility] 3 05:28:36 Vitamin D deficien cy 68737784 Completed 201401/06/2023 Problem Code: E55.9; Problem Code Type: ICD-10; Not Available [facility] 3 05:28:36 Epigastr ic pain 00789457 Completed 202003/30/2022 Problem Code: R10.13; Problem Code Type: ICD-10; Not Available [facility] 3 05:28:39 Hypokale leena 10158001 Active 2022 Problem Code: E87.6; Problem Code Type: ICD-10; Not Available [facility] 4 05:36:41 Hearing loss 65632089 Completed 201409/27/2014 Removal Reason: inactive Alise Hilton janessa, [facility] 11:04:52 Increase d frequenc y of urinatio n 050058819 Active 2023 LORRAINE HOFF, [facility] [address], [place], [address] , [facility] 11:38:30 Impaired dentitio n 609571466 Active 2023 [address]Y VALENTE-LAQUITA [address], [place] [address] , [facility] 18:30:30 Suicidal thoughts 2202513 Active 2023 LORRAINE HOFF [facility] [address], [facility] [address] , [facility] 18:35:48 Problem Notes None recorded. Procedures Surgical History None recorded. Imaging Results Imaging Date Name Status LastModified by [facility] Details LastModified Time 03/19/2022 LDCT, chest, for lung cancer screening completed Information not available 05/08/2024 01:49:42 05/27/2023 LDCT, chest, for lung cancer screening completed Information not available 05/08/2024 01:49:43 12/20/2020 LDCT, chest, for lung cancer screening completed Information not available 05/08/2024 01:49:44 04/19/2019 XR, chest completed Information no t available 05/08/2024 01:49:46 12/20/2020 XR, chest completed Information no t available 05/08/2024 01:49:47 04/18/2019 CT, abdomen completed Information n ot available 05/08/2024 01:49:48 04/20/2019 CT, abdomen completed Information n ot available 05/08/2024 01:49:49 04/17/2019 imaging/diagno stic result completed Information not available 05/08/2024 01:49:54 04/17/2019 imaging/diagno stic result completed Information not available 05/08/2024 01:49:55 04/20/2019 imaging/diagno stic result completed Information not available 05/08/2024 01:49:56 04/18/2019 imaging/diagno stic result completed Information not available 05/08/2024 01:50:04 04/18/2019 imaging/diagno stic result completed Information not available 05/08/2024 01:50:05 04/18/2019 imaging/diagno stic result completed Information not available 05/08/2024 01:50:06 04/13/2022 imaging/diagno stic result completed Information not available 05/08/2024 01:50:10 04/19/2019 imaging/diagno stic result completed Information not available 05/08/2024 01:51:03 01/02/2021 imaging/diagno stic result completed Information not available 05/08/2024 01:51:15 04/13/2022 imaging/diagno stic result completed Information not available 05/08/2024 01:51:31 02/17/2022 imaging/diagno stic result completed Information not available 05/08/2024 01:51:40 06/26/2024 XR, shoulder completed [address] [place] [place], [address] 06/29/2024 19:51:46 06/27/2024 x-ray imaging report completed [address] [place], [address] 06/27/2024 07:25:10 Procedure Notes None recorded. Medical Equipment None Reported. Allergies No known drug allergies Medications Name Sig Start Date Stop Date Status Note LastModified by Organization Details LastModified Time atorvasta tin 40 mg tablet Take 1 tablet by mouth every night 04/02 completed blisterp ack Not Available Not Available Not Available Qvar 80 mcg/actua tion Metered Aerosol oral inhaler Inhale 2 puffs by mouth twice daily. Rinse mouth after use. 03/09 completed Not Available Not Available Not Available albuterol sulfate 2.5 mg/3 mL (0.083 %) solution for nebulizat ion HHN q6h 08/04 completed Not Available Not Available Not Available Risperdal 2 mg tablet 1.5 tabs po qd 2014 active Not Available Not Available Not Avai lable Keflex 500 mg capsule Take 1 tab by mouth four times daily 03/12 completed [facility] for follicul itis Not Available Not Available Not Available ibuprofen 200 mg capsule 4 tabs po TID prn KELLEY/pain 2014 active Not Available Not Available Not Avai lable Nicoderm CQ 21 mg/24 hr daily transderm al patch Apply 1 patch external ly daily to hairless area. Rotate skin sites 02/28 completed Not Available Not Available Not Available simvastat in 10 mg tablet 1 tab at bedtime 2014 active blisterp ack Not Available Not Available Not Available tramadol 50 mg tablet Take 1 tab by mouth three times a day as needed 08/10 completed [facility] for follicul itis Not Available Not Available Not Available Aerochamb er MV spacer Use 03/30 completed Not Available Not Available Not Available Nicoderm CQ 7 mg/24 hr daily transderm al patch Apply 1 patch external ly daily to hairless area. Rotate skin sites 02/28 completed Not Available Not Available Not Available tamsulosi n 0.4 mg capsule TAKE 1 CAPSULE BY MOUTH 30 MINUTES AFTER SAME MEAL DAILY 01/12 completed Not Available Not Available Not Available trazodone 100 mg tablet Take 2 tablet by mouth at bedtime 01/12 completed rx'd by [facility] Not Available Not Available Not Available temazepam 30 mg capsule One tab at bedtime 12/15 completed Not Available Not Available Not Available Nicoderm CQ 14 mg/24 hr daily transderm al patch Apply 1 patch external ly daily to hairless area. Rotate skin sites 02/28 completed Not Available Not Available Not Available pantopraz ole 40 mg tablet,de layed release TAKE 1 TABLET BY MOUTH DAILY 2019 active Not Available Not Available Not Avai lable trazodone 150 mg tablet 0.5 tab at bedtime 08/30 completed Not Available Not Available Not Available fluoxetin e 20 mg tablet 1 tab daily 07/22 completed Not Available Not Available Not Available fluoxetin e 20 mg capsule Take 3 capsules by mouth daily 2014 active Not Available Not Available Not Avai lable lisinopri l 2.5 mg tablet TAKE 1 TABLET BY MOUTH DAILY 11/03 completed Not Available Not Available Not Available naproxen 500 mg tablet Take 1 tablet by mouth twice a day as needed 2017 active Not Available Not Available Not Avai lable Vitamin D3 25 mcg (1,000 unit) tablet one cap po qd 07/22 completed Not Available Not Available Not Available metoprolo l tartrate 25 mg tablet TAKE 1/2 TABLET BY MOUTH TWICE A DAY 11/03 completed Not Available Not Available Not Available mirtazapi ne 7.5 mg tablet Take 1 tablet every day by oral route. active [facility] Not Available Not Available No t Available Flovent HFA 110 mcg/actua tion aerosol inhaler Inhale 2 puff by mouth twice a day 05/22 completed Not Available Not Available Not Available Flovent HFA 220 mcg/actua tion aerosol inhaler 2 PUFFS BID 08/04 completed Not Available Not Available Not Available ProAir HFA 90 mcg/actua tion aerosol inhaler Take 2 puff every four to six hours as needed 03/30 completed Not Available Not Available Not Available paliperid one ER 6 mg tablet,ex tended release 24 hr Take 1 tablet every day by oral route. active [facility] for schizoph han Not Available Not Available Not Available Incruse Ellipta 62.5 mcg/actua tion powder for inhalatio n Inhale 1 puff once a day 03/30 completed Not Available Not Available Not Available Spiriva Respimat 1.25 mcg/actua tion solution for inhalatio n Inhale 2 puff as directed once a day 08/17 completed Not Available Not Available Not Available Vitals Date Recorded Body height Body mass index (BMI) Body weight Heart rate Systolic blood pressure Diastolic blood pressure Provider Name and Address Organization Details Last Updated DateTime 4 177.8 cm 29.7 kg/m2 00561.6 2 g 56 /min 144 mm[Hg] 60 mm[Hg] Ruthann dougherty LPN [facility] 4 10:45:40 Date Recorded Body height Body mass index (BMI) Body weight Heart rate Systolic blood pressure Diastolic blood pressure Provider Name and Address Organization Details Last Updated DateTime 4 177.8 cm 33.4 kg/m2 083039. 02 g 60 /min 132 mm[Hg] 70 mm[Hg] Ruthann dougherty LPN [facility] 4 10:46:39 Date Recorded Body height Body mass index (BMI) Body weight Heart rate Systolic blood pressure Diastolic blood pressure Provider Name and Address Organization Details Last Updated DateTime 4 177.8 cm 34.6 kg/m2 011174. 12 g 62 /min 118 mm[Hg] 64 mm[Hg] Ruthann dougherty LPN [facility] 4 09:58:54 Date Recorded Body height Body mass index (BMI) Body weight Oxygen saturation Oxygen saturation in Arterial blood by Pulse oximetry Heart rate Systolic blood pressure Diastolic blood pressure Provider Name and Address Organization Details Last Updated DateTime 4 177.8 cm 35.9 kg/m2 906571. 09 g 95 % 95 % 58 /min 150 mm[Hg] 78 mm[Hg] Ariane Beltre [facility] 4 09:05:30 Social History Question Answer Notes LastModified by Organizat ion Details LastModified Time Tobacco Smoking Status Current Every Day Smoker Ruthann Vidal LPN null, [place] - [facility]. 01/13/2024 11:50:48 What Was The Date Of Your Most Recent Tobacco Screening? 04/06/2024 [email or web address] Information not available 04/06/2024 What Is Your Current Pack Years? 20-29packyea rs [email or web address] Information not available 01/13/2024 At What Age Did You Start Smoking Tobacco? 12 [email or web address] Information not available 04/06/2024 How Much Tobacco Do You Smoke? 0.5 PPD [email or web address] Information not available 01/13/2024 Has Tobacco Cessation Counseling Been Provided? Yes [email or web address] Information not available 01/13/2024 On What Date Was Tobacco Cessation Counseling Provided? 04/06/2024 [email or web address] Information not available 04/06/2024 How Many Years Have You Smoked Tobacco? 46 [email or web address] Information not available 04/06/2024 Do You Or Have You Ever Used Any Other Forms Of Tobacco Or Nicotine? No [email or web address] Information not available 01/13/2024 Sex: Male Functional Status None recorded. Mental Status None recorded. Family History Relationship Description Onset Age of this Age Resolved Age Notes LastModified by Organization Details LastModified Time Father Family history of stroke 54yo Not available 07/02/2023 03:57:02 Mother Family history of malignant neoplasm 64yo liver CA Not available 07/02/2023 03:57:02 Notes:*Problem: Mother: Dece ased, liver cancer, age 64 Father: , CVA, age 54 Sisters: 3, 1 , Brothers: 3, 1, , leukemia, age 47 Children: None Family History of: Medical History No medical history recorded. Immunizations Vaccine Type Date Status Note Provider Nam e and Address Organization Details Recorded Time Tdap 5 completed Not Available [facility] 07/02/2023 04:58:41 Td(adult) unspecified formulation 2 completed Not Available [facility] 07/02/2023 04:58:42 Influenza, split virus, trivalent, preservative 5 completed Not Available [facility] 07/02/2023 04:58:42 Influenza, split virus, trivalent, preservative 6 completed Not Available [facility] 07/02/2023 04:58:42 Influenza, split virus, quadrivalent, PF 2 completed Not Available [facility] 07/02/2023 04:58:42 Influenza, split virus, quadrivalent, PF 4 completed Not Available [facility] 07/02/2023 04:58:42 Influenza, split virus, quadrivalent, PF 1 completed Not Available [facility] 07/02/2023 04:58:42 zoster recombinant 1 completed Not Available [facility] 07/02/2023 04:58:43 zoster recombinant 1 completed Not Available [facility] 07/02/2023 04:58:43 COVID-19, mRNA, LNP-S, PF, 100 mcg/0.5mL dose or 50 mcg/0.25mL dose 1 completed Not Available [facility] 07/02/2023 04:58:43 COVID-19, mRNA, LNP-S, PF, 100 mcg/0.5mL dose or 50 mcg/0.25mL dose 1 completed Not Available [facility] 07/02/2023 04:58:43 COVID-19, mRNA, LNP-S, PF, 100 mcg/0.5mL dose or 50 mcg/0.25mL dose 2 completed Not Available [facility] 07/02/2023 04:58:43 COVID-19, mRNA, LNP-S, PF, 100 mcg/0.5mL dose or 50 mcg/0.25mL dose 1 completed Not Available [facility] 07/02/2023 04:58:44 Pneumococcal conjugate PCV20, polysaccharide [id number] conjugate, adjuvant, PF 3 completed Not Available [facility] 07/02/2023 04:58:44 COVID-19, mRNA, LNP-S, bivalent, PF, 30 mcg/0.3 mL dose 2 completed Not Available [facility] 07/02/2023 04:58:44 pneumococcal polysaccharide PPV23 6 completed Not Available [facility] 07/02/2023 04:58:44 COVID-19, mRNA, LNP-S, PF, trixie-sucrose, 30 mcg/0.3 mL 4 completed Ariane Beltre null, [facility] 08/03/2024 10:27:14 Influenza, split virus, trivalent, PF 4 completed Ariane Beltre null, [facility] 08/03/2024 10:05:08 Influenza, split virus, quadrivalent, PF 3 completed Not Available [facility] 09/03/2023 05:32:09 COVID-19, mRNA, LNP-S, PF, trixie-sucrose, 30 mcg/0.3 mL 3 completed Not Available [facility] 09/03/2023 05:32:09 Past Encounters Encounter ID Performer Location Encounter Start Date Encounter Closed Date Diagnosis/Indication Diagnosis SNOMED-CT Code Diagnosis ICD10 Code [id number] LORRAINE LOPEZLaura [address] [address] 01/13/2024 10:33:10 01/13/2024 11:48:49 Screening for malignant neoplasm of colon 496859768 Z12.11 Vascular disorder 954839 09 I99.9 Hypokalemia 24498728 E87 .6 Smoker 76949184 F17.200 Cramp in lower limb 4499 83931 R25.2 Adult heal th examination 629803357 Z00.00 [id number] LORRAINE VILLARREAL [address] [address] 04/06/2024 10:26:28 04/06/2024 12:02:53 Hypokalemia 16225119 E87.6 Increased frequency of urination 019717710 R35.0 Impaired dentition 73116 4008 K03.9 Suicidal thoughts 712724 6 R45.412 [id number] [facility] [address] [place] [address] 05/04/2024 09:34:31 05/04/2024 10:44:49 Increased frequency of urination 348561103 R35.0 Impaired dentition 56528 4008 K03.9 Major depr ession, single episode 36937304 F32.9 Suicidal thoughts 660502 6 R45.922 [id number] Meka Vazquez [facility] [address] [place] [address] 08/03/2024 08:29:31 08/03/2024 10:05:28 Active or passive immunization 495120023 Z23 Dilated cardiomyopathy 829922551 I42.0 Pain in left foot 981043 8671 02098 M79.672 Health Concerns Section Related Observation LastModified by Organization Detai ls LastModified Time None Recorded Concern Status LastModified by Organization Details LastModified Time None Recorded Advance Directives Directive None Recorded Payers Encounter Date Sequence Insurance Name Policy Number Policy Echeverria Covered Member ID Echeverria Member ID Guarantor Name 01/13/2024 1 *SELF PAY* Vi lorena Smith 04/06/2024 1 *SELF PAY* Vi lorena Smith 05/04/2024 1 [place]: [employer] Doug Smith [id number] 1 Doug Smith Notes Date Note Type Note Provider Name and Address Organization Details Recorded Time 01/13/2024 text/html ThighReported bypatient.Notes:Candido den onset L hamstring cramp last night, very painful and lasted about 10 minutes. Does not feel he would have been able to walk across the room if he had needed to. He typically drinks a half liter of soda daily, plus Gatorade, plus coffee, does not drink any water, sometimes at work he goes hours without drinking anything because he doesn't have time to take a break. Does not exercise or stretch.Continues to smoke daily, buys the filtered tubes and tobacco and makes his own.He states someone delivers his medication from [facility] daily, but we have no medications on his med list. Has been living alone since early July, from 2 weeks ago. Roommate moved out in July. Recently lost his biggest support at [facility] (Kailey sp?). Living room ceiling just collapsed in his apartment. He has not filled out forms for his Medicare Wellness Visit scheduled for today, needs assistance with this and does not have time for that today. Today's visit changed to acute to address leg cramp. LORRAINE MCCLELLAN, [employer] [address], [place], [id number], [facility], [facility]. 01/14/2024 19:47:42 04/06/2024 text/html F/U recent discharge from care bed stay at [facility], after presenting to [facility] ED with suicidal ideation on 03/24/2024. Doug is accompanied today by his high risk case manager Jose Pat, who along with [facility] team, is helping Doug navigate behavioral health and financial issues.Today Doug reports ongoing tooth pain and urinary symptoms. LORRAINE MCCLELLAN, [facility]- [address], [place], [id number], [facility], [facility]. 04/06/2024 18:43:05 05/04/2024 text/html 3 week follow up urinary symptoms, mood, dental pain.Doug is accompanied today by [facility] staff member Kelby.Today he reports he had a rough day Wednesday mood-rock, was able to call Jose for support. He is doing a little better today, but still agitated, expressing frustration that he has been without a roommate for 10 months, is not able to have a pet in his apartment, his ability to do woodwork in his apartment was taken away (he calls this his therapy), continues to be upset about break up from his ex, financial stressors, ongoing dental pain. He admits to suicidal thoughts, with plan and means in the past - had been stockpiling his medications with intent to overdose on Jul 28 of this year so I'd be gone on July 29 (Kait ). [facility] became aware and intervened, and he is not stockpiling now.He feels his meds aren't working adequately currently, but also reports not being completely compliant with his medications.Today he also reports having sudden onset of L anterior hip/groin pain while at work at [employer], lifting heavy boxes. He ultimately stopped work a little early and rested. Pain worsened with heavy lifting, improved with sitting, and ultimately resolved by bed time. Pain did not radiate and he initially states he did not feel the area, but later stated there was no bulging in the area.Continues to smoke and drink hein Mt Dew, but has cut back to 1 liter of soda every 2-3 days.When asked about his urinary frequency he states I don't want to talk about that today. LORRAINE MCCLELLAN, [facility]- [address], [place], [id number], [facility] - [facility]. 05/04/2024 11:38:09"
--- OUTSIDE RECORDS SUMMARY | 2024-08-03 10:40 | XMS_ITS | Encounter Summary ---
Author Organization [facility] Address [facility] [place] [address] Care Team Providers Care Patch Setter Name Role Phone Stanford Chu Primary Care Provider [phone] Reason for Visit * Reason Comments Hospital Transfer Abdominal Pain * Auth/Cert Specialty Diagnoses / Procedures Referred By Contac t Referred To Contact Diagnoses Upper abdominal pain Perforated gastric ulcer Chest pain, unspecified type Referral ID Status Reason Start Date Expiration Date Visits Re quested Visits Authorized [id number] 1 1 Encounter Details Date Type Department Care Team (Latest Contact Info) Description 04/20/2019 1:23 PM EDT - 04/23/2019 1:50 PM EDT Hospital Encounter Inter[place] [address] Bin Armstrong MD [facility] [place] [address] Perez Barrera MD [facility] [place] [address] Smooth Mak MD [facility] [place] [address] Chest pain, unspecified type; Upper abdominal pain Discharge Disposition: Home Social History Tobacco Use Types Packs/Day Years Used Date Smoking Tobacco: Never Assessed Sex and Gender Information Value Date Recorded Sex Assigned at Not on file Gender Identity Not on file Sexual Orientation Not on file documented as of this encounter Last Filed Vital Signs Vital Sign Reading Time Taken Comments Blood Pressure 144/74 04/23/2019 11:35 AM EDT Pulse 59 04/23/2019 8:00 AM EDT Temperature 36.5 ??C (97.7 ??F) 04/23/2019 12:00 PM E DT Respiratory Rate 19 04/22/2019 4:00 AM EDT Oxygen Saturation 99% 04/23/2019 11:35 AM EDT Inhaled Oxygen Concentration - - Weight 132 kg (291 lb 0.1 oz) 04/22/2019 4:00 AM EDT Height 177.8 cm (5' 10) 04/20/2019 6:13 PM EDT Body Mass Index 41.76 04/20/2019 6:13 PM EDT documented in this encounter Discharge Summaries * Zoltan Pearson MD - 04/23/2019 10:42 AM EDT General Surgery Inpatient - Discharge Summary Patient Name: Doug Smith Patient Age: 54 y.o. Birthdate: 1965 Admit date: 04/20/2019 Discharge date: 04/23/2019 Attending Physician: Smooth Mak MD Active Hospital Problems Diagnosis ??? Perforated gastric ulcer Resolved Hospital Problems No resolved problems to display. Operations/Major Procedures: None Follow-up Recommendations for Providers: Needs f/u in surgery clinic in 2 weeks Will need outpatient EGD in 4-6 weeks to r/o gastric pathology H/ Pylori study pending, if positive will need treatment of H/ pylori. Not treating empirically because we suspect a low likelihood of this . 1wk soft diet. 5 more days of Augmentin (for a total 10d course of antibiotics. Hospital Course: The patient is 54yo man with mutiple medical co-morbidities, including severe COPD, CHF with a preserved EF, morbid obesity, and an underlying psych disorder with previous suicide attempt. He was transferred to [facility] after being admitted to [facility] with abdominal pain. At the time of initial evaluation, a CT scan showed an area of inflammation near the posterior gastric wall in the lesser sac. He wasHD stable with a leukocytosis and the attempt was made to manage him non- operatively. Repeat CT imaging was obtained on Wednesday given some ongoing abdominal pain, and it showed a small area of freeair, again in the lesser sac, and a slightly increased area of inflammation in the same location. There are no drainable collections. The surgeon at [facility] was understandably concerned that, should he need a surgery, he would not be someone who would be easily extubated, and he might require ICU admission. On our initial examination, he is minimally TTP and his vitals and labs are reassuring and did not require acute abdominal surgery. He was kep NPO for 24 until HD 4 after his problem began. We attempted to get a formal gastric fluoroscopic study to r/o leak, but contrast in the colon obscured the view and this could not be obtained. His pain had resolved and we opted to watch him clinically as we advanced his diet. His tolerated diet advancement over 48 to a mechanical soft diet without pain or signs of clinical deterioration. At this point he was deemed stable for discharge home. Pathology: None Exam: Temp: [36.5 ??C (97.7 ??F)-37.2 ??C (99 ??F)] Heart Rate: [59-72] Resp: -- BP: (120-160)/(55-83) SpO2: [86 %-98 %] Heart Rate from SpO2: [50 bpm-69 bpm] I/O last 3 completed shifts: In: 1884.7 [P.O.:1010; I.V.:392.7; IV Piggyback:482] Out: 1275 [Urine:1275] Physical Exam: GA: NAD, resting comfortably CV: regular without Pulm:??Audible wheezing, frequent coughing ABD:??protuberant,??non-tender, not peritoneal.?? Extr: warm and well perfused, no notable edema Neuro: no focal deficits, NAD, resting comfortably Discharge to: Home Discharge Conditions/Prognosis: Stable Discharge Medications: The following medications have been prescribed for you. If you notice any adverse reactions to your medications, please contact your primary care physician immediately or go tothe nearest Emergency Department. Your Medications New Medications Dose Details amoxicillin-clavulanate 500-125 mg Tab Commonly known as: AUGMENTIN Take 1 tablet by mouth 3 times daily for 5 days. 1 tablet Quantity: 15 tablet Refills: 0 Updated Allergies/ADRs: No Known Allergies PCP: MARTINEZ Go Scheduled Appointments: The following appointments have been scheduled on your behalf: No future appointments. Outpatient Services/Studies: No discharge procedures on file. Instructions Given to Patient at Discharge:. An After Visit Summary was printed and given to the patient. Patient Instructions [facility] - Department of General Surgery Patient Discharge Instructions What to Expect Following Surgery: Swelling and/or bruising under and around the incision is normal. It is usually greatest on the second or third day following surgery. Your scar will be most visible for 1-2 months following your operation and will gradually fade. As it heals, a scar looks more pink or red than the skin around it. You may feel a ???healing ridge?? directly under the incision. This is normal and will go away whenhealing is complete. The skin just above and below your incision will feel numb. This will improve over several months but some patients may have long-term decrease in sensation over these areas. Prescriptions: Please review the medication summary on your discharge instructions Pain Medication: ??? You have been NOT prescribed narcotic pain medications. You may take tylenol or ibuprofen to control any discomfort to might have. ??? Please take your 5 days of Augmentin antibiotics as prescribed. Diet: ??? Please follow a SOFT diet for 1 week. All foods should be mushy and soft. Who to Call Daytime triage line for questions/concerns: [phone] After hours (nights/weekends/holidays) for urgent questions/concerns: [phone] (ask for the general surgery resident to be paged). Follow-up Appointments: A Follow-up appointment will be scheduled with the General Surgery Outpatient [facility] 1-2 weeks. You will receive a letter in the mail and/or a phone call with information about thisappointment. Please call [phone] (clinic number for appointments) to confirm date and time of your appointment, or if you do not receive information about your appointment in a timely manner. No future appointments. Department of General Surgery ??? [facility] ??? [address] ??? [place] [address] ??? [phone] ~~~~~~~~~~~~~~~~~~~~~~~~~~~~~~~~~~~~~~~~~~~~~~~~~~~~~~~~~~~~~~~~~~~ General Instructions None CC: MARTINEZ Go Signed: ZOLTAN PEARSON MD 04/23/2019 [facility] 3765 Associated attestation - Smooth Mak MD - 04/23/2019 1:08 PM EDT This patient was personally seen and examined on team rounds. I agree with the assessment and plan as discussed. Diagnoses and therapy were explained and all questions were answered. Doing well. Smooth Mak MD 04/23/2019 1:08 PM documented in this encounter Discharge Instructions * Patient Instructions* Zoltan Pearson MD - 04/23/2019 10:54 AM EDT [facility] - Department of General Surgery Patient Discharge Instructions What to Expect Following Surgery: Swelling and/or bruising under and around the incision is normal. It is usually greatest on the second or third day following surgery. Your scar will be most visible for 1-2 months following your operation and will gradually fade. As it heals, a scar looks more pink or red than the skin around it. You may feel a ???healing ridge?? directly under the incision. This is normal and will go away whenhealing is complete. The skin just above and below your incision will feel numb. This will improve over several months but some patients may have long-term decrease in sensation over these areas. Prescriptions: Please review the medication summary on your discharge instructions Pain Medication: ??? You have been NOT prescribed narcotic pain medications. You may take tylenol or ibuprofen to control any discomfort to might have. ??? Please take your 5 days of Augmentin antibiotics as prescribed. Diet: ??? Please follow a SOFT diet for 1 week. All foods should be mushy and soft. Who to Call Daytime triage line for questions/concerns: [phone] After hours (nights/weekends/holidays) for urgent questions/concerns: [phone] (ask for the general surgery resident to be paged). Follow-up Appointments: A Follow-up appointment will be scheduled with the General Surgery Outpatient [facility] 1-2 weeks. You will receive a letter in the mail and/or a phone call with information about thisappointment. Please call [phone] (clinic number for appointments) to confirm date and time of your appointment, or if you do not receive information about your appointment in a timely manner. No future appointments. Department of General Surgery ??? [facility] ??? [address] ??? [place] [address] ??? [phone] ~~~~~~~~~~~~~~~~~~~~~~~~~~~~~~~~~~~~~~~~~~~~~~~~~~~~~~~~~~~~~~~~~~~ documented in this encounter Medications at Time of Discharge Medication Sig Dispensed Refills Start Date End Date amoxicillin-clavulanate (AUGMENTIN) 500-125 mg Tablet Take 1 tablet by mouth 3 times daily for 5 days. 15 tablet 04/23/2019 04/28/2019 documented as of this encounter Progress Notes * Zoltan Pearson MD - 04/22/2019 10:03 AM EDT Acute Care Surgery Daily Progress Note ID:54 y.o. Male admitted with perforated gastric ulcer on 04/20. Problem List: - Acute pain Procedures: None Secondary Issues: Past Medical History: Diagnosis Date ??? COPD (chronic obstructive pulmonary disease) 24 Hour Events: NAEO Patient vitals stable, afberile Tolerated clears. Emesis x1, but seems self limited, no nauseous, no abd pain this AM Current Medications: ??? FLUoxetine 20 mg Oral Daily ??? risperiDONE 2 mg Oral Nightly ??? metoprolol 12.5 mg Oral 2 times per day ??? mirtazapine 7.5 mg Oral Nightly ??? pantoprazole 40 mg Oral BID ??? piperacillin-tazobactam 4.5 g Intravenous Q8H UMESH ??? sodium chloride 0.9 % (flush) 5 mL Intravenous BID ??? nicotine 1 patch Transdermal Daily And ??? Patch Verification 1 patch Transdermal BID And ??? nicotine 1 patch Transdermal Daily ??? senna-docusate 2 tablet Oral BID ??? enoxaparin 40 mg Subcutaneous 2 times per day Vital Signs: VITALS (24hr Range): Temp Temp: [36.5 ??C (97.7 ??F)-37.4 ??C (99.3 ??F)] , HR Heart Rate: [60-69] , BP BP: (121-145)/(54-87) , RR Resp: [12-19] , SpO2 SpO2: [92 %-99 %] I/O: Intake/Output Summary (Last 24 hours) at 04/22/2019 1003 Last data filed at 04/22/2019 0847 Gross per 24 hour Intake 982.7 ml Output 1325 ml Net -342.3 ml Physical Exam: GA: NAD, resting comfortably CV: regular without Pulm: Audible wheezing, frequent coughing ABD: protuberant, non-tender, not peritoneal. Extr: warm and well perfused, no notable edema Neuro: no focal deficits, NAD, resting comfortably Labs: Recent Labs 04/21/19 0210 04/20/19 1500 WBC 7.5 9.0 HGB 10.5* 11.1* HCT 34.1* 35.8* PLATELET 199 192 Recent Labs 04/21/19 0210 04/20/19 1500 NA 138 139 K 3.5 3.8 CL 104 105 CO2 24 23 BUN 16 16 CREATININE 0.70* 0.73* GLUCOSE 135 132 CALCIUM 8.7 8.8 Microbiology: None New Imaging: CT from outside hospital shows gastric ulcer perforation Assessment: 54 yo male who was admitted from OSH 4 days after gastric ulcer perforation which apparently had sealed off and was managed non-operatively. POssibly from perforation from chicken bone seen in SB and then cecum on serial CT scans. Hemodynamically stable, doing well clinically. Toleratedclears without pain. Unable to obtain swallow study, following clinically for leak symptoms. Increase to [facility] soft diet today. DC tomorrow v Wednesday if doing well. Plan: NEURO: APAP, oxy RESPI: Breathing on RA, required 2L overnight for intermittent desats CARDIO: No issues GI/FEN: Advanced to mech soft diet. Transition to PO home meds. : Adequate UOP Prophylaxis: Lovenox Dispo: Med/surg * Will need outpatient EGD to assess site of perforation for r/o of gastric CA as etiology. ZOLTAN PEARSON MD, Chief resdient General Surgery pgr [phone] 04/22/2019 Associated attestation - Smooth Mak MD - 04/22/2019 11:58 AM EDT This patient was personally seen and examined on team rounds. I agree with the assessment and plan as discussed. Diagnoses and therapy were explained and all questions were answered. Residual enteral contrast limited the utility of a contrast UGI. Will follow AXR for contrast clearance. He is tolerating diet advance and appears clinically well. Smooth Mak MD 04/22/2019 11:58 AM * Bernie Sarmiento MD - 04/21/2019 12:01 PM EDT Acute Care Surgery Daily Progress Note ID:54 y.o. Male admitted with perforated gastric ulcer on 04/20. Problem List: - Acute pain Procedures: None Secondary Issues: Past Medical History: Diagnosis Date ??? COPD (chronic obstructive pulmonary disease) 24 Hour Events: NAEO Patient vitals stable, afberile NPO now Current Medications: ??? potassium chloride 20 mEq Intravenous Once ??? sodium chloride 0.9 % (flush) 5 mL Intravenous BID ??? piperacillin-tazobactam 3.375 g Intravenous Q8H ??? fluconazole 200 mg Intravenous Q24H ??? nicotine 1 patch Transdermal Daily And ??? Patch Verification 1 patch Transdermal BID And ??? nicotine 1 patch Transdermal Daily ??? metoprolol 5 mg Intravenous Q6H ??? senna-docusate 2 tablet Oral BID ??? pantoprazole 40 mg Intravenous BID ??? risperiDONE 2 mg Oral Nightly ??? mirtazapine 7.5 mg Oral Nightly ??? enoxaparin 40 mg Subcutaneous 2 times per day Vital Signs: VITALS (24hr Range): Temp Temp: [36.4 ??C (97.5 ??F)-37.9 ??C (100.2 ??F)] , HR Heart Rate: [57-79] , BP BP: (110-151)/(52-91) , RR Resp: [12-29] , SpO2 SpO2: [92 %-98 %] I/O: Intake/Output Summary (Last 24 hours) at 04/21/2019 1202 Last data filed at 04/21/2019 0941 Gross per 24 hour Intake 1199.2 ml Output 230 ml Net 969.2 ml Physical Exam: GA: NAD, resting comfortably CV: regular without Pulm: Audible wheezing, frequent coughing ABD: Distended, tender in the epigastric region, not peritoneal. Extr: warm and well perfused, no notable edema Neuro: no focal deficitsGA: NAD, resting comfortably Labs: Recent Labs 04/21/19 0210 04/20/19 1500 WBC 7.5 9.0 HGB 10.5* 11.1* HCT 34.1* 35.8* PLATELET 199 192 Recent Labs 04/21/19 0210 04/20/19 1500 NA 138 139 K 3.5 3.8 CL 104 105 CO2 24 23 BUN 16 16 CREATININE 0.70* 0.73* GLUCOSE 135 132 CALCIUM 8.7 8.8 Microbiology: None New Imaging: CT from outside hospital shows gastric ulcer perforation Assessment: 54 yo male who was admitted for gastric ulcer perforation on 04/20. Hemodynamically stable, doing well clinically. Started on antibiotics yesterday. NPO now. Was unable to do swallow today, advanced to clears and instructed to go very slow. Will monitor. Transferring to lower level of care today as well. Plan: NEURO: APAP, oxy RESPI: Breathing on RA, required 2L overnight for intermittent desats CARDIO: No issues GI/FEN: Advanced to clears, instructed to go very slow, senna, docusate : Adequate UOP Prophylaxis: Lovenox Dispo: Med/surg Bernie Sarmiento MD [facility] PGY1 [id number] Associated attestation - Smooth Mak MD - 04/21/2019 3:54 PM EDT This patient was personally seen and examined on team rounds. I agree with the assessment and plan as discussed. Diagnoses and therapy were explained and all questions were answered. CT images reviewed Residual enteral contrast limits the utility of a contrast UGI. Will follow AXR for contrast clearance and begin to advance diet slowly as he is clinically well. Smooth Mak MD 04/21/2019 3:53 PM * Michelle Templeton, RN - 04/20/2019 6:09 PM EDT [facility] in no acute distress. Audibly wheezy with movement but professes no distress. IV's patent., continue running Zosyn and D51/2S with 20 MeQ KCL . Left AC iv redressed. Right hand IV flushed and capped. Vital signs WNL. 02 off. 02 sat on room air 95% * Cydney Calvert, - 04/20/2019 5:33 PM EDT Respiratory Care Consult Note Doug Smith 1965 [id number] 04/20/2019 1:23 PM Hospital Day: 0 Reason for Consult: bad COPD, lots of concern History: Doug Smith is a 54 y.o. male with a PMHx significant for Past Medical History: Diagnosis Date ??? COPD (chronic obstructive pulmonary disease) who was admitted to [facility] for does not have any pertinent problems on file. Home Respiratory Medications: none per patient report Home O2: none per per patient report Home NIV: none per patient report Assessment: HR: 71 RR: 25 SPO2: 94% on 2L NC Lung Sounds: Crackles (Coarse) Appearance: NARD Current Respiratory Medications: Duoneb Assessment: The patient expressed good productive cough. The patient reported attempting to quit smoking on Wednesday. The patient expressed ease of breathing following adminstration of SVN, Plan: Continue to provide inhaled medication. Consider consulting smoking cessation and pulmonary. RT Jevon If we can be of further assistance please contact the Respiratory Department at Pager #[phone]. documented in this encounter H&P Notes * Perez Barrera MD - 04/20/2019 2:03 PM EDT General Surgery Inpatient Consult Note HPI: Doug Smith is a 54 y.o. male with PMH COPD who presents in transfer from [facility] with CT evidenceof a posterior gastric perforation. Patient states that Wednesday afternoon he developed severe epigastric pain that did not resolve. He waited a day and then was admitted to [facility] on 04/17. He was non-toxic and afebrile at that time. A CT on the revealed a contained fluid collection posterior to the stomach which was consistent with a gastric perforation. He had significant respiratory issues while inpatient and did respond to lasix. He had a repeat CT today which now showed a punctate foci offree air. He was transferred here for consideration of operative intervention. He has no history ofPUD or GERD. He has never had an EGD. He does not use excessive amounts of NSAIDs. No recent feversor chills. He is a current 1PPD smoker. PMH: COPD Pulmonary HTN Cardiomyopathy Depression PSH: No abdominal surgery Ear surgery MEDICATIONS: Fluoxetine 20mg daily Risperidone 2mg daily Tramadol 50 TID Simvastatin 10mg daily Metoprolol 25mg daily Mirtazapine 7.5mg daily ALLERGIES: Allergies not on file FAMILY HISTORY: No significant family history - Denies history of bleeding or clotting disorders. Denies history of reactions to anesthesia. SOCIAL HISTORY: Tobacco: Current 1 PPD smoker ETOH: none Drugs: No recreational drug use. REVIEW OF SYSTEMS: 12 point review of system otherwise negative except as above PHYSICAL EXAM: VS: (Temp: [36.9 ??C (98.4 ??F)] ) Temp: 36.9 ??C (98.4 ??F), (Heart Rate: [70] ) Heart Rate: 70, (BP: (133)/(73) ) BP: 133/73, (Resp: [20] ) Resp: 20, (SpO2: [94 %] ) SpO2: 94 % GA: NAD, resting comfortably CV: regular without Pulm: Audible wheezing, frequent coughing ABD: Distended, tender in the epigastric region, not peritoneal. Extr: warm and well perfused, no notable edema Neuro: no focal deficits LABS: OSH Labs 04/20/19: WBC: 9.8 Hgb: 11.4 Plt: 224 MICRO: OSH Bcx negative for 48H. CARDS/VASC: - ECHO from [facility]: EF of 50% and moderate pulmonary hypertension IMAGIN04/17/2019 CT A/P: Two low attenuation masses adjacent to the stomach. May be some air. Adjacent inflammatory changes.Consistent with perforated gastric ulcer. 2.6cm metallic density in a loop of SB 04/20/2019 CT A/P: No read sent, reviewed independently - no significant change seen. ASSESSMENT and RECOMMENDATIONS: 54y/o M with significant pulmonary disease who presents in transfer for consideration of operative intervention for a perforated gastric ulcer. The patient is currently stable, non-toxic, afebrile, with a minimally tender abdominal exam. His CT scan from today is largely unchanged. Given his pulmonary status the patient would likely have respiratory distress post-operatively. Given his stability we will manage him non-operatively for now. Admit to acute care surgery, Dr. Barrera Attending. 1. Strict NPO, mIVF 2. Fluconazole and Zosyn 3. BID PPI 4. H.pylori 5. UGI tomorrow. 6. Repeat labs now. 7. Resume all home medications if IV formulary available. Mendoza Toro MD General Surgery PGY-2 [id number] I saw and evaluated the patient with Dr. Toro (resident). I have independently reviewed the relevant laboratory and radiographic studies. I agree with the details as written. My physical examination confirms the resident's findings. The assessment and plan were formulated in discussion with me at the time of the visit and I agree with them as documented. The patient is 54yo man with mutiple medical co-morbidities, including severe COPD, CHF with a preserved EF, morbid obesity, and an underlying psych disorder with previous suicide attempt. He was transferred to [facility] after being admitted to [facility] with abdominal pain. At the time of initial evaluation, a CT scan showed an area of inflammation near the posterior gastric wall in the lesser sac. He wasHD stable with a leukocytosis and the attempt was made to manage him non- operatively. Repeat CT imaging was obtained on Wednesday given some ongoing abdominal pain, and it showed a small area of freeair, again in the lesser sac, and a slightly increased area of inflammation in the same location. There are no drainable collections. The surgeon at [facility] was understandably concerned that, should he need a surgery, he would not be someone who would be easily extubated, and he might require ICU admission. On our examination, he is minimally TTP and his vitals and labs are reassuring. There is a question of a foreign body that was seen in the stomach lumen on his initial CT and appears to have migrated to the small bowel in the interim. The plan moving forward is to admit to our service for serial exams, IVF resuscitation and a UGI tomorrow to evaluate for perforation. Will also consult pulmonology and cardiology while he is here, in order to optimize him and risk stratify him should he require surgery. Perez Barrera MD documented in this encounter ED Notes * Alma Delia Chinchilla RN - 04/20/2019 4:56 PM EDT Attempted to give report to ISCU RN. Awaiting call back. * Bin Armstrong MD - 04/20/2019 3:28 PM EDT Chief Complaint Patient presents with ??? Hospital Transfer ??? Abdominal Pain HPI Mr. Smith is a 54-year-old male with a history of COPD, hypertension and obesity who was evaluatedin outside hospital for abdominal pain which is started approximately 5 days ago. He was seen at [facility], underwent CT scan on the which revealed a contained fluid collection posterior to his stomach suggestive of a perforated gastric ulcer. Per review of notes he had a repeat CT today which also showed some small air. He was transferred here for evaluation by surgery. Surgery did see the patient prior to my evaluation. On my evaluation, the patient confirms abdominal pain, did denied a history of ulcers, denied fever, nausea, vomiting, changes to stool or urine. He describes the pain as midepigastric with diffuse radiation. No attempted treatments. No history of significant NSAID use or H. pylori. Allergies not on file Review of Systems Negative for fever, new cough, congestion, chest pain, changes to stool or urine, history of coagulopathy. He does have a history of COPD. Abdominal pain is positive as detailed above in HPI. Most Recent Vitals: 04/20/19 1500 BP: 137/80 Pulse: 67 Resp: 25 Temp: SpO2: 94% Physical Exam General: Awake, alert, no acute distress. Nontoxic. HEENT: Normocephalic atraumatic. Nares are clear. Oropharynx is clear. Lungs: RRR. No crackles. Cards: Normal S1, S2 no murmurs rubs or gallops. Abdomen: Diffuse abdominal tenderness. Two-parent abdomen. Skin: Warm and well-perfused. Neuro: A&O x4. Procedures MDM Mr. Smith is a 54-year-old he presents today with a chief complaint of abdominal pain in the setting of perforated gastric ulcer. Surgery was aware of his presentation today. He was evaluated by them at bedside, and the plan will be to admit to their service, please see their note for additional details. He was stable in the emergency department, without signs or symptoms of sepsis or hemodynamic instability. ED Course: Admitted to surgery. Bin Armstrong MD 04/20/19 1537 Bin Armstrong MD 04/20/19 5928 * Alma Delia Chinchilla RN - 04/20/2019 2:53 PM EDT Surgery 5047 paged for hold parameters for metoprolol at this time. Patient's HR sustains 60-69 bpmon telemetry. * Alma Delia Chinchilla RN - 04/20/2019 2:06 PM EDT General surgery, Dr. Toro at the bedside. * Alma Delia Chinchilla RN - 04/20/2019 1:42 PM EDT Care assumed from RAFAEL Boyd. Patient laying supine on stretcher, c-collar in place. Patient denies needs or pain at this time. * Obi Almazan MD - 04/20/2019 1:36 PM EDT ED Transfer Note: Patient accepted in transfer by general surgery due to concern for perforated gastric ulcer. A brief history was elicited from the patient and the transfer documents. Briefly, Doug Smith is a 54 y.o. male who presented to [facility] for abdominal pain. Course at OSH was notable for CT showingperigastric abscess and signs of perforated gastric ulcer. On my examination, Patient vital signs are stable. Abdomen is distended but not tender to palpation. Patient feels that his abdomen is at his baseline. I contacted the accepting team, and have provided them with transfer documents per their request. They will evaluate the patient, please see their notes. ED Course and Disposition: Admit to surgery via the OR Obi Almazan MD Resident 04/20/19 6954 documented in this encounter Miscellaneous Notes * Plan of Care - Cydney Walker RN - 04/23/2019 10:21 AM EDT Problem: Patient Care Overview Goal: Plan of Care Review 04/23/19 1021 Coping/Psychosocial Plan Of Care Reviewed With patient Plan of Care Review Progress improving Patient given discharge instructions and printed AVS, reviewed with patient, and his transport/ ride home roommate, including follow up appointments, medication list, diet, activity, as well as signsand symptoms to report, patient was able to state understanding of information discussed, and was assisted into wheelchair, he has all personal belongings, and printed AVS, and transported by staff to vehicle. * Plan of Care - Yesenia Price RN - 04/22/2019 2:26 PM EDT Problem: Patient Care Overview Goal: Plan of Care Review Outcome: Ongoing (Interventions Implemented as Appropriate) 04/20/19 1832 04/22/19 0800 Coping/Psychosocial Plan Of Care Reviewed With -- patient Plan of Care Review Progress no change -- OUTCOME EVALUATION NOTE: OUTCOME SUMMARY: Patient aox4, denies pain, VSS on RA. Advanced to mechanical soft diet, no pain post-prandial noted. Tolerating well. PO PPI started. Patient had continent BM today and was finally able to send stoolsample. See chart for results. SBA with ambulation. Lungs remain wheezy, coughing encouraged & breathing techniques (IS). Josea Lejandro continue to monitor PLAN MOVING FORWARD: Transfer to floor bed when available Discharge tomorrow per team INDIVIDUALIZED FALL PREVENTION INTERVENTIONS: Patient-specific fall risk factors per assessment: [current deficits]: sba Assistance [level of assistance required for transfers and ambulation]: sba Supervision [direct monitoring required during toileting and ADLs]: Eyes on Surveillance [continuous indirect monitoring]: Bed alarm, call alejo in reach, purposeful rounding Patient-specific fall prevention interventions for sensory deficits provided, if applicable: [X] No CPG GOAL OUTCOME EVALUATION: Making progress. Goal: Fall Prevention-Safe Patient Handling Outcome: Ongoing (Interventions Implemented as Appropriate) 04/21/19199904/22/19 1353 Rain Fall Risk History of Falling 0 -- Secondary Diagnosis 15 -- Ambulatory Aids 0 -- Intravenous Therapy/Heparin/Saline Lock 20 -- Gait/Transferring 0 -- Mental Status 0 -- Score 35 -- OTHER Rian Fall Risk Med -- Restraint Interventions Safety Promotion/Fall Prevention -- safety round/check completed;nonskid shoes/slippers when out ofbed;fall prevention program maintained;activity supervised Positioning Body Position -- independent Activity Activity Type -- activity adjusted per tolerance Activity Assistance Provided assistance, stand-by -- Goal: Infection Control Outcome: Ongoing (Interventions Implemented as Appropriate) 04/21/19199904/22/19 1353 Safety Interventions Isolation Precautions -- standard precautions maintained Infection Prevention -- rest/sleep promoted;environmental surveillance performed Coping Strategies Supportive Measures active listening utilized -- Goal: Discharge Needs Assessment Outcome: Ongoing (Interventions Implemented as Appropriate) 04/22/19 1423 Discharge Needs Assessment Discharge Disposition still a patient Goal: Interdisciplinary Rounds/Family Conf Outcome: Ongoing (Interventions Implemented as Appropriate) 04/21/19 0801 Interdisciplinary Rounds/Family Conf Participants patient;physician;nursing * Plan of Care - Masood Canales RN - 04/22/2019 5:49 AM EDT Problem: Patient Care Overview Goal: Plan of Care Review Outcome: Ongoing (Interventions Implemented as Appropriate) 04/20/19183104/21/191999 Coping/Psychosocial Plan Of Care Reviewed With -- patient Plan of Care Review Progress no change -- OUTCOME EVALUATION NOTE: OUTCOME SUMMARY: A/o x4. SBA. Denies pain. Clear liquid diet. Incontinent of liquid stool once overnight. abd distended. Continue abx. Placed on 2L oxygen overnight to maintain sats. Extremely wheezy throughout all lung wilhelm. PLAN MOVING FORWARD: Abx, protonix, clear liquid diet, h pylori stool needed, follow labs, prn nebs. INDIVIDUALIZED FALL PREVENTION INTERVENTIONS: Patient-specific fall risk factors per assessment: [current deficits]: Wires, weakness. Assistance [level of assistance required for transfers and ambulation]: SBA Supervision [direct monitoring required during toileting and ADLs]: SBA Surveillance [continuous indirect monitoring]: Rounding, bed alarm Patient-specific fall prevention interventions for sensory deficits provided, if applicable: [X] Yes CPG GOAL OUTCOME EVALUATION: * Plan of Care - Janel Fermin RN - 04/21/2019 3:49 PM EDT Problem: Patient Care Overview Goal: Plan of Care Review Outcome: Ongoing (Interventions Implemented as Appropriate) 04/20/19183104/21/19799 Coping/Psychosocial Plan Of Care Reviewed With -- patient Plan of Care Review Progress no change -- OUTCOME EVALUATION NOTE: OUTCOME SUMMARY: Pt alert and oriented, VSS. Pt to barium swallow today, unable to complete per radiology. Advanced to clears, tolerating well. Pt moving well in room, up to chair for most of the day. Multiple loose stools. Transferred to floor status, will continue to monitor PLAN MOVING FORWARD: Transfer to floor INDIVIDUALIZED FALL PREVENTION INTERVENTIONS: Patient-specific fall risk factors per assessment: [current deficits]: Generalized weakness, lines Assistance [level of assistance required for transfers and ambulation]: SBA Supervision [direct monitoring required during toileting and ADLs]: Eyes on Surveillance [continuous indirect monitoring]: Purposeful rounding, call light within reach, call light answered in person, fam monitor Patient-specific fall prevention interventions for sensory deficits provided, if applicable: [X] Yes CPG GOAL OUTCOME EVALUATION: * Plan of Care - Alessandra Phelan OT - 04/21/2019 12:59 PM EDT 04/21/19 1038 Rehab Evaluation Document Type contact Evaluation Not Performed Comment Orders received, chart reviewed, patient is currently independent in ADLs and functional mobility for self care. No OT needs at this time. Alessandra Phelan OT/L Pager [phone] Occupational Therapist Rehabilitation Department * Plan of Care - Shiloh Scherer PT - 04/21/2019 10:37 AM EDT Physical Therapy 04/21/19 1036 Rehab Evaluation Document Type contact Total Evaluation Minutes, Physical Therapy 0 Evaluation Not Performed other (see comments) Evaluation Not Performed Comment Consult recieved, hx/current status reviewed. Per Rn discussion, pt observation, pt is at independent baseline functional status and is without skilled PT needs at present. Will defer assessment and monitor from a distance. Please do not hesitate to page me directlyshould any skilled PT needs or questions arise. Shiloh Scherer PT, MSPT Pager [phone] Inpatient Physical Therapy * Plan of Care - Cass Feliciano RN - 04/21/2019 8:02 AM EDT Problem: Patient Care Overview Goal: Plan of Care Review Outcome: Ongoing (Interventions Implemented as Appropriate) 04/20/19 18304/20/19 2100 Coping/Psychosocial Plan Of Care Reviewed With -- patient Plan of Care Review Progress no change -- OUTCOME EVALUATION NOTE: OUTCOME SUMMARY: Elias had a calm evening, with minimal interruptions throughout the night. He had a very small, light brown liquid bowel movement. BS are active in all quadrants, high pitched in the RUQ and LUQ, lowpitched and gurgles in the LLQ. Early in the morning his O2 Saturations intermittently dropped into the 80's while asleep, and 2L NC was initiated for respiratory support with good effect. He received one PRN duoneb for wheezing and responded well. PLAN MOVING FORWARD: Continue to monitor GI and bowel function, manage respiratory symptoms. INDIVIDUALIZED FALL PREVENTION INTERVENTIONS: Patient-specific fall risk factors per assessment: [current deficits]: Unstable on standing and ambulation, IV therapy. Assistance [level of assistance required for transfers and ambulation]: 1 SBA Supervision [direct monitoring required during toileting and ADLs]: 1 SBA Surveillance [continuous indirect monitoring]: Carlos Patient-specific fall prevention interventions for sensory deficits provided, if applicable: N/A CPG GOAL OUTCOME EVALUATION: * Plan of Care - Michelle Templeton RN - 04/20/2019 6:35 PM EDT Problem: Patient Care Overview Goal: Plan of Care Review Outcome: Ongoing (Interventions Implemented as Appropriate) 04/20/19 183 Coping/Psychosocial Plan Of Care Reviewed With patient Plan of Care Review Progress no change OUTCOME EVALUATION NOTE: OUTCOME SUMMARY: admitted to ICU at 1735. Comfortable in bed, walked from doorway to bed. IV's patent, vital signs WDL. No complaints of abdominal pain. PLAN MOVING FORWARD: monitor for signs and symptoms relating to perf'd gastric ulcer INDIVIDUALIZED FALL PREVENTION INTERVENTIONS: Patient-specific fall risk factors per assessment: [current deficits]: none Assistance [level of assistance required for transfers and ambulation]: 1 standby Supervision [direct monitoring required during toileting and ADLs]: 1 standby Surveillance [continuous indirect monitoring]: Carlos monitoring, frequent checks by staff Patient-specific fall prevention interventions for sensory deficits provided, if applicable: [X] N/A CPG GOAL OUTCOME EVALUATION: * Initial Assessments - Gabriela Kong MSW - 04/20/2019 4:24 PM EDT Office of Care Management Initial Assessment MARINA Peña reviewed record and discussed patient with Care Team. Source of Information: Patient and medical record. Introduced self/reviewed role; services accepted. Reason for Hospitalization: Per ED provider note by Dr. Armstrong, Pt is a 54-year-old male with a history of COPD, hypertension and obesity who was evaluated in outside hospital for abdominal painwhich is started approximately 5 days ago. No past medical history on file. Hospitalizations (Admits) Within the Past 30 Days: None Anticipated Length Of Stay (If known): Greater than two midnights Current Decision-Making Capacity: Alert, oriented, full capacity. Advance Care Planning: Full Code ; No AD on file. Current Coping/Education/Information Needs: Pt reports understanding plan of care as explained to him. Current Functional Ability: Independent, SBA as needed. Functional Status Prior to Admission: Independent Home Environment: Lives with a roomate in a second story apartment with a flight of steps. Pt's bedroom is on the second floor. Pt reports no issues with ambulating into or around his apartment. Current Address: [address] [place] [id number] Social & Family Supports/Community Resources: Pt is supported by his ex- and roommate. Pt reports other friends in the [facility] area as well. Pt is currently working at [employer]. Pt reports that he receives rides from co- workers to and from work. Pt reports there is a good crew of them. Extended Emergency Contact Information Primary Emergency Contact: Deloris Smith Mobile Relation: Other Behavioral Health History: Pt reports to meet with a Therapist, Pascual Chacon, for the past 1.5-2 years. Pt reports that he is currently on antidepressants. Pt denies that he is currently receiving anyother behavioral health supports at this time. Pt denies interest in receiving any bx resources. Substance Use/Abuse: Tobacco hx: Pt currently smoking about 1 pack/day ETOH hx: Pt denies current use Illicit drug use hx: Pt denies current use Other Pertinent/Service Specific Information: n/a Health/Prescription Coverage: Primary Insurance: MEDICARE Payor: MEDICARE / Plan: MEDICARE PART A & B / Product Type: *No Product type* / Secondary Insurance: N/A Prescription Coverage: Pt covered under above Preferred Pharmacy: No Pharmacies Listed Other: n/a Primary Care Provider: MARTINEZ Go [phone] Patient/Caregiver Goals of Treatment: Pt would like to receive care and return home. Potential Needs for Transition of Care: Rehab/SNF: Not anticipated Home Health: Not anticipated DME: None Dialysis: N/A Community Resources: n/a Transportation: With family/friend via private vehicle Other: n/a Anticipated Barriers to Discharge/Special Considerations: none anticipated Assessment: Pt is a 54 y/o male presenting to [facility] ED with abdominal pain. Pt has a history of COPD, hypertension and obesity. Pt is being admitted to acute care surgery with a perforated gastric ulcer. Pt denies any home needs a this time. Pt reports meeting with a therapist in the past but deniesany need for follow up with behavioral health resources at this time. Pt is likely to have a short hospital stay. Pt is not likely to require any home services. Plan: Following for S[employer]ATER and care management support through disposition. A member of the Care Management team will continue to monitor progress, follow for continuity of care and assist with transition of care planning. MARINA Peña Clinical Manual Qa Tester ED CDU SDP C: [phone] * ED Triage - Jolanta Mcconnell RN - 04/20/2019 12:57 PM EDT Pt BIB EMS from OSH. Pt arrives A&Ox4 speaking in full sentences. Pt reports abd pain that started on Wednesday. Seen at [facility] on Wednesday. Comes in today for general surgery consult for question of perforated ulcer and metal object in intestine. Respirations even and non labored. Skin p/w/d. NAD at this time. documented in this encounter Plan of Treatment Scheduled Orders Name Type Priority Associated Diagnoses Orde r Schedule Film Library- Storage Only CT Abdomen & Pelvis Imaging Storage Only STAT Once PRN (for Radian t use) for 1 Occurrences starting 04/20/2019 until 04/20/2019, 1 completed Film Library- Storage Only CT Chest Abdomen Pelvis Imaging Storage Only STAT Once PRN (for Radian t use) for 1 Occurrences starting 04/20/2019 until 04/20/2019, 1 completed Film Library- Storage Only DX Chest Imaging Storage Only STAT Once PRN (for Radian t use) for 1 Occurrences starting 04/20/2019 until 04/20/2019, 1 completed Film Library- Storage Only DX Chest Imaging Storage Only STAT Once PRN (for Radian t use) for 1 Occurrences starting 04/20/2019 until 04/20/2019, 1 completed documented as of this encounter Procedures Procedure Name Priority Date/Time Associated Diagnosis Comments HEMOGRAM Routine 04/23/2019 12:35 AM EDT DIFFERENTIAL, AUTOMATED Routine 04/23/2019 12:35 AM EDT HC CBC,PLT & AUTO DIFF Routine 9 12:35 AM EDT BASIC METABOLIC PANEL Routine 04/23/2019 12:35 AM EDT HC H.PYLORI STOOL ANTIGEN STAT 04/22/2019 11:14 AM EDT XR ABDOMEN 1 VIEW Timed 04/21/2019 11: 50 AM EDT HEMOGRAM Routine 04/21/2019 2:10 AM EDT DIFFERENTIAL, AUTOMATED Routine 04/21/2019 2:10 AM EDT HC CBC,PLT & AUTO DIFF Routine 9 2:10 AM EDT BASIC METABOLIC PANEL Routine 04/21/2019 2:10 AM EDT POCT GLUCOSE Routine 04/20/2019 5:45 PM EDT BLOOD GAS ARTERIAL POC Routine 9 3:01 PM EDT HEMOGRAM STAT 04/20/2019 3:00 PM EDT DIFFERENTIAL, AUTOMATED STAT 04/20/2019 3:00 PM EDT GOLD TUBE HOLD STAT 04/20/2019 3:00 PM EDT BLUE TUBE HOLD STAT 04/20/2019 3:00 PM EDT HC L-LACTATE STAT 04/20/2019 3:00 PM EDT HC CBC,PLT & AUTO DIFF STAT 9 3:00 PM EDT HC TROPONIN T STAT 04/20/2019 3:00 PM EDT HC LIPASE STAT 04/20/2019 3:00 PM EDT HC AMYLASE STAT 04/20/2019 3:00 PM EDT COMPREHENSIVE METABOLIC PANEL STAT 04/20/2019 3:00 PM EDT EKG 12-LEAD STAT 04/20/2019 2:51 PM EDT Chest pain, unspecified type FILM LIBRARY STORAGE ONLY DX CHEST STAT 04/19/2019 12:00 AM EDT FILM LIBRARY STORAGE ONLY DX CHEST STAT 04/18/2019 12:00 AM EDT FILM LIBRARY STORAGE ONLY CT CHEST ABDOMEN PELVIS STAT 04/17/2019 12:10 AM EDT FILM LIBRARY STORAGE ONLY CT ABDOMEN AND PELVIS STAT 04/17/2019 12:05 AM EDT documented in this encounter Results * (ABNORMAL) Differential, Automated (04/23/2019 12:35 AM EDT) Pathologist [facility] Neutrophil % 67.1 % [facility] Neutrophil Absolute 5.19 1.70 - 6.10 x10(3)/ L [facility] Lymph % 18.9 % [facility] Lymphocytes Abs 1.5 0.9 - 3.2 x10(3)/ L [facility] Monocyte % 9.0 % [facility] Monocyte Abs 0.7 0.3 - 0.9 x10(3)/ L [facility] Eos % 3.7 % [facility] Eosinophils Abs 0.3 0.0 - 0.4 x10(3)/[facility] Basophil % 0.4 % [facility] Baso Absolute 0.0 0.0 - 0.1 x10(3)/[facility] Immature Gran % 0.90 % [facility] Comment: Immature granulocytes(IG's)percentage and absolute count will include metamyelocytes, myelocytes, and promyelocytes. Blood smears from CBCs yielding IG's will be scanned manually for concordance. If this scan disagrees with the automated IG or if promyelocytes are noted, a manual differential will be performed. Immature Gran Absolute 0.07(H) 0.00 - 0.04 x10(3)/ L [facility] Blood specimen (specimen) 04/23/2019 12:35 AM EDT 04/23/2019 12:53 AM EDT Narrative Resulting Agency Comment Spec In Lab Bernie Sarmiento MD HEMATOLOGY ORDERABLE S [facility] [place] [address] * (ABNORMAL) Hemogram (04/23/2019 12:35 AM EDT) Pathologist [facility] White Blood Cell 7.7 4.0 - 9.5 x10(3)/ L [facility] Red Blood Cell 3.88(L) 4.58 - 5.54 x10(6)/mc L [facility] Hemoglobin 11.1(L) 13.7 - 16.5 gm/dL [facility] Hematocrit 35.1(L) 40.5 - 48.5 % [facility] Mean Cell Volume 90.5 82.9 - 93.1 fL [facility] Mean Cell Hemoglobin 28.6 27.5 - 32.1 pg [facility] Mean Cell Hemoglobin Concentration 31.6(L) 32.0 - 35.7 gm/dL [facility] Platelet 243 145 - 357 x10(3)/mc L [facility] RDW Standard Deviation 45.8(H) 36.0 - 45.0 [facility] RDW coefficient of variation 13.7 11.4 - 13.8 % [facility] Mean Platelet Volume 9.9 7.6 - 12.9 [facility] NRBC% auto 0.0 % [facility] NRBC Absolute 0.000 0.000 - 0.000 x10(3)/mc L [facility] Blood specimen (specimen) 04/23/2019 12:35 AM EDT 04/23/2019 12:53 AM EDT Narrative Resulting Agency Comment Spec In Lab Bernie Sarmiento MD HEMATOLOGY ORDERABLE S [facility] [place] [address] * (ABNORMAL) Basic Metabolic Panel (non-fasting) (04/23/2019 12:35 AM EDT) Glucose 110 65 - 199 mg/dL [facility] Comment:Diabetes: >=200 mg/d L plus symptoms Blood Urea Nitrogen 12 10 - 20 mg/dL [facility] Creatinine 0.73(L) 0.80 - 1.50 mg/dL [facility] Sodium 141 135 - 145 mmol/L [facility] Potassium 3.2(L) 3.5 - 5.0 mmol/L [facility] Comment: Please note: ??Patients with WBC >100,000 may have falsely elevated Potassium levels. ??For accurate Potassium quantification in these patients send serum separator tube (gold top) for subsequent determinations. ??Contact the Clinical Chemistry Laboratory if there are any questions. Chloride 104 98 - 107 mmol/L [facility] Carbon Dioxide 26 22 - 31 mmol/L [facility] Anion Gap 11 5 - 15 mmol/L [facility] Calcium 8.9 8.5 - 10.5 mg/dL [facility] Est Glomerular Filtration Rate 104 >=60 mL/min/1. 73 m?? [facility] Comment: The eGFR was calculated using the CKD-EPI equation. As with all creatinine based estimates of kidney function, eGFR values calculated with the CKD-EPI equation are not accurate in patients with acute kidney failure, extremes of body mass or the acutely ill. http://ev-social/[facility] eGFR 121 >=60 mL/min/1. 73 m?? [facility] Comment: The eGFR was calculated using the CKD-EPI equation. As with all creatinine based estimates of kidney function, eGFR values calculated with the CKD-EPI equation are not accurate in patients with acute kidney failure, extremes of body mass or the acutely ill. http://ev-social/[facility] Blood specimen (specimen) 04/23/2019 12:35 AM EDT 04/23/2019 12:53 AM EDT Narrative Resulting Agency Comment Spec In Lab Perez Barrera MD CHEMISTRY ORDERABLE S [facility] [place] [address] * Helicobacter pylori Antigen Stool (04/22/2019 11:14 AM EDT) H pylori Ag Negative Negative [facility] Comment:Test performed by elvi deluna. H pylori Ag Comment See Comment [facility] Comment: Antimicrobials, proton pump inhibitors and bismuth preparations are known to suppress H pylori, and ingestion of these prior to H. pylori testing may cause false negative results. Stool specimen (specimen) 04/22/2019 11:14 AM EDT 04/22/2019 12:21 PM EDT Narrative Resulting Agency Comment Spec In Lab Perez Barrera MD MICROBIOLOGY - GENE [facility] ORDERABLES [facility] [place] [address] * XR Abdomen 1 view (Generic) (04/21/2019 11:50 AM EDT) Anatomical Region Laterality Modality Abdomen N/A Radio Fluoroscop y Impressions 04/21/2019 12:28 PM EDT KUB obtained with residual contrast in the colon precluding requested upper GI fluoroscopic study. I Dr. Manish Cintron discussed the result(s) above with Dr. Zoltan Pearson on 04/21/2019 at 11:30 AM and verified that he understood these results. I have personally reviewed the image(s) and the residents interpretation and agree with the findings, Uyen Ross at 04/21/2019 12:28 PM Thank you for letting us participate in the care of this patient. For questions regarding this report, please contact the number below. ? Narrative 04/21/2019 12:28 PM EDT EXAMINATION: XR ABDOMEN 1 VIEW (GENERIC) CLINICAL HISTORY: perforated gastric ulcer, has sealed off x3d, Requested for 04/21 TECHNIQUE: Patient presented for fluoroscopic contrast evaluation of the stomach. Initial AP vehicle body maker supine radiographs of the abdomen and pelvis were obtained. COMPARISON: CT abdomen/pelvis and IV and oral contrast dated 04/20/2019 from outside institution. FINDINGS: The vehicle body maker AP supine radiographs of the abdomen demonstrate residual oral contrast in nondilated ascending colon, splenic flexure, descending colon, and rectosigmoid colon. No dilated air-filled loops of small bowel. Intraperitoneal free air cannot be excluded on supine imaging. No portal venous gas or visualized pneumatosis. Procedure Note Uyen Ross MD - 04/21/2019 EXAMINATION: XR ABDOMEN 1 VIEW (GENERIC) CLINICAL HISTORY: perforated gastric ulcer, has sealed off x3d, Requested for 04/21 TECHNIQUE: Patient presented for fluoroscopic contrast evaluation of the stomach.Initial AP vehicle body maker supine radiographs of the abdomen and pelvis were obtained. COMPARISON: CT abdomen/pelvis and IV and oral contrast dated 04/20/2019 from outside institution. FINDINGS: The vehicle body maker AP supine radiographs of the abdomen demonstrate residual oral contrast in nondilated ascending colon, splenic flexure, descending colon,and rectosigmoid colon. No dilated air-filled loops of small bowel. Intraperitoneal free aircannot be excluded on supine imaging. No portal venous gas or visualizedpneumatosis. IMPRESSION KUB obtained with residual contrast in the colon precluding requestedupper GI fluoroscopic study. I Dr. Manish Cintron discussed the result(s) above with Dr. Zoltan Wheatley 04/21/2019 at 11:30 AM and verified that he understood these results. I have personally reviewed the image(s) and the residents interpretationand agree with the findings, Uyen Ross at 04/21/2019 12:28 PM Thank you for letting us participate in the care of this patient. Forquestions regarding this report, please contact the number below. Bin Armstrong MD IMG DX ORDERABLES * Differential, Automated (04/21/2019 2:10 AM EDT) Neutrophil % 72.1 % [facility] Neutrophil Absolute 5.40 1.70 - 6.10 x10(3)/[facility] Lymph % 16.6 % [facility] Lymphocytes Abs 1.2 0.9 - 3.2 x10(3)/[facility] Monocyte % 7.2 % [facility] Monocyte Abs 0.5 0.3 - 0.9 x10(3)/[facility] Eos % 3.3 % [facility] Eosinophils Abs 0.2 0.0 - 0.4 x10(3)/[facility] Basophil % 0.3 % [facility] Baso Absolute 0.0 0.0 - 0.1 x10(3)/[facility] Immature Gran % 0.50 % [facility] Comment: Immature granulocytes(IG's)percentage and absolute count will include metamyelocytes, myelocytes, and promyelocytes. Blood smears from CBCs yielding IG's will be scanned manually for concordance. If this scan disagrees with the automated IG or if promyelocytes are noted, a manual differential will be performed. Immature Gran Absolute 0.04 0.00 - 0.04 x10(3)/[facility] Blood specimen (specimen) 04/21/2019 2:10 AM EDT 04/21/2019 2:16 AM EDT Narrative Resulting Agency Comment Spec In Lab Zoltan Pearson MD HEMATOLOGY ORDERABLE S [facility] [place] [address] * (ABNORMAL) Hemogram (04/21/2019 2:10 AM EDT) White Blood Cell 7.5 4.0 - 9.5 x10(3)/mc L [facility] Red Blood Cell 3.67(L) 4.58 - 5.54 x10(6)/mc L [facility] Hemoglobin 10.5(L) 13.7 - 16.5 gm/dL [facility] Hematocrit 34.1(L) 40.5 - 48.5 % [facility] Mean Cell Volume 92.9 82.9 - 93.1 [facility] Mean Cell Hemoglobin 28.6 27.5 - 32.1 pg [facility] Mean Cell Hemoglobin Concentration 30.8(L) 32.0 - 35.7 gm/dL [facility] Platelet 199 145 - 357 x10(3)/mc L [facility] RDW Standard Deviation 48.3(H) 36.0 - 45.0 [facility] RDW coefficient of variation 14.0(H) 11.4 - 13.8 % [facility] Mean Platelet Volume 9.7 7.6 - 12.9 [facility] NRBC% auto 0.0 % [facility] NRBC Absolute 0.000 0.000 - 0.000 x10(3)/mc L [facility] Blood specimen (specimen) 04/21/2019 2:10 AM EDT 04/21/2019 2:16 AM EDT Narrative Resulting Agency Comment Spec In Lab Zoltan Pearson MD HEMATOLOGY ORDERABLE S [facility] [place] [address] * (ABNORMAL) Basic Metabolic Panel (non-fasting) (04/21/2019 2:10 AM EDT) Glucose 135 65 - 199 mg/dL [facility] Comment:Diabetes: >=200 mg/d L plus symptoms Blood Urea Nitrogen 16 10 - 20 mg/dL [facility] Creatinine 0.70(L) 0.80 - 1.50 mg/dL [facility] Sodium 138 135 - 145 mmol/L [facility] Potassium 3.5 3.5 - 5.0 mmol/L [facility] Comment: Please note: ??Patients with WBC >100,000 may have falsely elevated Potassium levels. ??For accurate Potassium quantification in these patients send serum separator tube (gold top) for subsequent determinations. ??Contact the Clinical Chemistry Laboratory if there are any questions. Chloride 104 98 - 107 mmol/L [facility] Carbon Dioxide 24 22 - 31 mmol/L [facility] Anion Gap 10 5 - 15 mmol/L [facility] Calcium 8.7 8.5 - 10.5 mg/dL [facility] Est Glomerular Filtration Rate 106 >=60 mL/min/1. 73 m?? [facility] Comment: The eGFR was calculated using the CKD-EPI equation. As with all creatinine based estimates of kidney function, eGFR values calculated with the CKD-EPI equation are not accurate in patients with acute kidney failure, extremes of body mass or the acutely ill. http://ev-social/[facility]kf eGFR 123 >=60 mL/min/1. 73 m?? [facility] Comment: The eGFR was calculated using the CKD-EPI equation. As with all creatinine based estimates of kidney function, eGFR values calculated with the CKD-EPI equation are not accurate in patients with acute kidney failure, extremes of body mass or the acutely ill. http://ev-social/[facility] Blood specimen (specimen) 04/21/2019 2:10 AM EDT 04/21/2019 2:16 AM EDT Narrative Resulting Agency Comment Spec In Lab Perez Barrera MD CHEMISTRY ORDERABLE S [facility] [place] [address] * POCT Glucose (04/20/2019 5:45 PM EDT) Glucose, POC 127 65 - 199 mg/dL [facility] Comment: Supplemental ranges: <140 mg/dL before meals <180 mg/dL all other times of the day Blood specimen (specimen) 04/20/2019 5:45 PM EDT 04/20/2019 5:45 PM EDT Perez Barrera MD POINT OF CARE TEST ORDERABLES [facility] [place] [address] * (ABNORMAL) BLOOD GAS 2 ARTERIAL (04/20/2019 3:01 PM EDT) pH, Arterial 7.38 7.35 - 7.45 [facility] PCO2, Arterial 42 35 - 45 mmHg [facility] PO2, Arterial 34(Critic al) 85 - 104 mmHg [facility] Comment:Noted by surgical instruments inspector. Bicarbonate, Arterial 24.6 20.0 - 26.0 mmol/L [facility] Base Excess, Arterial -0.6 -3.0 - 3.0 mmol/L [facility] Hgb Blood Gas 12.4(L) 13.7 - 16.5 gm/dL [facility] Oxyhemoglobin, Arterial 65.0(L) 94.0 - 97.0 % [facility] Carboxyhemoglo bin, Arterial 0.1 % [facility] Comment: Nonsmokers: 0.5-1.5% COHB Smokers: Variable, but usually less than 10% Toxic: 20-30% COHB Lethal: Greater than 60% COHB Methemoglobin, Arterial 0.4 <=1.5 % [facility] Na Whole Blood 139 135 - 145 mmol/L [facility] K Whole Blood 3.8 3.5 - 5.0 mmol/L [facility] Comment: Please note: Patients with WBC >100,000 may have falsely elevated Potassium levels. Contact the Clinical Chemistry Laboratory if there are any questions. ICa Whole Blood 1.18 1.15 - 1.33 mmol/L [facility] Comment: Note: ??Total bilirubin higher than 20 mg/dL may lead to falsely low ionized calcium. CL Whole Blood 105 98 - 107 mmol/L [facility] Gluc Whole Bld 123 65 - 199 mg/dL [facility] Comment:Diabetes: >=200 mg/d L plus symptoms. Lactate WB 1.3 0.5 - 2.2 mmol/L [facility] Flow Art 2.0 LPM [facility] Temp Art 36.7 Celsius [facility] Blood specimen (specimen) 04/20/2019 3:01 PM EDT 04/20/2019 3:01 PM EDT Bni Armstrong MD POINT OF CARE SYLVIA T ORDERABLES [facility] [place] [address] * (ABNORMAL) Differential, Automated (04/20/2019 3:00 PM EDT) Neutrophil % 79.3 % [facility] Neutrophil Absolute 7.11(H) 1.70 - 6.10 x10(3)/mc L [facility] Lymph % 10.8 % [facility] Lymphocytes Abs 1.0 0.9 - 3.2 x10(3)/mc L [facility] Monocyte % 7.3 % [facility] Monocyte Abs 0.7 0.3 - 0.9 x10(3)/mc L [facility] Eos % 1.9 % [facility] Eosinophils Abs 0.2 0.0 - 0.4 x10(3)/mc L [facility] Basophil % 0.3 % [facility] Baso Absolute 0.0 0.0 - 0.1 x10(3)/mc L [facility] Immature Gran % 0.40 % [facility] Comment: Immature granulocytes(IG's)percentage and absolute count will include metamyelocytes, myelocytes, and promyelocytes. Blood smears from CBCs yielding IG's will be scanned manually for concordance. If this scan disagrees with the automated IG or if promyelocytes are noted, a manual differential will be performed. Immature Gran Absolute 0.04 0.00 - 0.04 x10(3)/ L [facility] Blood specimen (specimen) 04/20/2019 3:00 PM EDT 04/20/2019 3:33 PM EDT Narrative Resulting Agency Comment Spec In Lab Zoltan Pearson MD HEMATOLOGY ORDERABLE S [facility] [place] [address] * (ABNORMAL) Hemogram (04/20/2019 3:00 PM EDT) White Blood Cell 9.0 4.0 - 9.5 x10(3)/[facility] Red Blood Cell 3.89(L) 4.58 - 5.54 x10(6)/[facility] Hemoglobin 11.1(L) 13.7 - 16.5 gm/dL [facility] Hematocrit 35.8(L) 40.5 - 48.5 % [facility] Mean Cell Volume 92.0 82.9 - 93.1 fL [facility] Mean Cell Hemoglobin 28.5 27.5 - 32.1 pg [facility] Mean Cell Hemoglobin Concentration 31.0(L) 32.0 - 35.7 gm/dL [facility] Platelet 192 145 - 357 x10(3)/[facility] RDW Standard Deviation 48.2(H) 36.0 - 45.0 [facility] RDW coefficient of variation 14.2(H) 11.4 - 13.8 % [facility] Mean Platelet Volume 9.8 7.6 - 12.9 [facility] NRBC% auto 0.0 % [facility] NRBC Absolute 0.000 0.000 - 0.000 x10(3)/[facility] Blood specimen (specimen) 04/20/2019 3:00 PM EDT 04/20/2019 3:33 PM EDT Narrative Resulting Agency Comment Spec In Lab Zoltan Pearson MD HEMATOLOGY ORDERABLE S Performing Organization Address [facility] Co de Phone Number [facility] [place] [address] * Gold Tube HOLD (04/20/2019 3:00 PM EDT) Gold Hold Sample in lab. [facility] Blood specimen (specimen) Venous Draw / Unknown 04/20/2019 3:00 PM EDT 04/20/2019 3:06 PM EDT Zoltan Pearson MD CHEMISTRY ORDERABLES Performing Organization Address [facility] Co de Phone Number [facility] [place] [address] * Blue Tube HOLD (04/20/2019 3:00 PM EDT) Blue Hold Sample in lab. [facility] Blood specimen (specimen) Venous Draw / Unknown 04/20/2019 3:00 PM EDT 04/20/2019 3:05 PM EDT Zoltan Pearson MD HEMATOLOGY ORDERABLE S Performing Organization Address [facility] Co de Phone Number [facility] [place] [address] * Lactate, whole blood, send to lab ([facility]) (04/20/2019 3:00 PM EDT) Lactate WB 1.3 0.5 - 2.2 mmol/L [facility] Blood specimen (specimen) 04/20/2019 3:00 PM EDT 04/20/2019 3:03 PM EDT Narrative Resulting Agency Comment Spec In Lab Bin Armstrong MD CHEMISTRY ORDERAB LES Performing Organization Address City/[facility]/ZIP Co de Phone Number [facility] [place] [address] * (ABNORMAL) Amylase (04/20/2019 3:00 PM EDT) Amylase 19(L) 28 - 100 unit/L [facility] Blood specimen (specimen) 04/20/2019 3:00 PM EDT 04/20/2019 3:04 PM EDT Narrative Resulting Agency Comment Spec In Lab Bin Armstrong MD CHEMISTRY ORDERAB LES Performing Organization Address [facility]/ZIP Co de Phone Number [facility] [place] [address] * Lipase (04/20/2019 3:00 PM EDT) Lipase 18 0 - 60 unit/L [facility] Blood specimen (specimen) 04/20/2019 3:00 PM EDT 04/20/2019 3:04 PM EDT Narrative Resulting Agency Comment Spec In Lab Bin Armstrong MD CHEMISTRY ORDERAB LES Performing Organization Address [facility]/ZIP Co de Phone Number [facility] [place] [address] * (ABNORMAL) Comprehensive metabolic panel (non-fasting) (04/20/2019 3:00 PM EDT) Glucose 132 65 - 199 mg/dL [facility] Comment:Diabetes: >=200 mg/d L plus symptoms Blood Urea Nitrogen 16 10 - 20 mg/dL [facility] Creatinine 0.73(L) 0.80 - 1.50 mg/dL [facility] Sodium 139 135 - 145 mmol/L [facility] Potassium 3.8 3.5 - 5.0 mmol/L [facility] Comment: Please note: ??Patients with WBC >100,000 may have falsely elevated Potassium levels. ??For accurate Potassium quantification in these patients send serum separator tube (gold top) for subsequent determinations. ??Contact the Clinical Chemistry Laboratory if there are any questions. Chloride 105 98 - 107 mmol/L [facility] Carbon Dioxide 23 22 - 31 mmol/L [facility] Anion Gap 11 5 - 15 mmol/L [facility] Calcium 8.8 8.5 - 10.5 mg/dL [facility] Protein, Total 7.5 6.1 - 8.0 gm/dL [facility] Albumin 3.4 3.2 - 5.2 gm/dL [facility] Aspartate Aminotransferase 15 0 - 39 unit/L [facility] Alanine Aminotransferase 14 0 - 55 unit/L [facility] Alkaline Phosphatase 91 40 - 130 unit/L [facility] Bilirubin, Total 0.5 0.2 - 1.3 mg/dL [facility] Est Glomerular Filtration Rate 104 >=60 mL/min/1. 73 m?? [facility] Comment: The eGFR was calculated using the CKD-EPI equation. As with all creatinine based estimates of kidney function, eGFR values calculated with the CKD-EPI equation are not accurate in patients with acute kidney failure, extremes of body mass or the acutely ill. http://ev-social/[facility] eGFR 121 >=60 mL/min/1. 73 m?? [facility] Comment: The eGFR was calculated using the CKD-EPI equation. As with all creatinine based estimates of kidney function, eGFR values calculated with the CKD-EPI equation are not accurate in patients with acute kidney failure, extremes of body mass or the acutely ill. http://ev-social/[facility] Blood specimen (specimen) 04/20/2019 3:00 PM EDT 04/20/2019 3:04 PM EDT Narrative Resulting Agency Comment Spec In Lab Bin Armstrong MD CHEMISTRY ORDERAB LES [facility] [place] [address] * Troponin (04/20/2019 3:00 PM EDT) [facility] Troponin-T <0.01 0.00 - 0.00 ng/mL [facility] Comment: The 99th percentile for Troponin T is less than 0.01 ng/mL, any detectable cTnT concentration using this assay should be considered elevated. According to the third universal definition of myocardial infarction the following criteria with a clinical presentation consistent with acute myocardial ischemia meets the diagnosis for a myocardial infarction (MO). Detection of a rise and/or fall of cTnT, with at least one value greater than the 99th percentile (> or = 0.01) and with at least one of the following ?? Symptoms of ischemia ?? New or presumed new significant ZB-dupexro-Y wave (ST-T) changes or new left bundle branch block (LBBB) ?? Development of pathologic Q waves in the ECG ?? Imaging evidence of new loss of viable myocardium or new regional wall motion abnormality ?? Identification of an intracoronary thrombus by angiography or autopsy Samples for cTnT testing should be obtained serially upon first assessment and again 3 to 6 hours later. If the clinical suspicion is high and previous samples have been negative an additional sample may be indicated. Reference: Third [place] Definition of Myocardial Infarction. Journal of the [place] [employer] 2012;60:1581-98 Blood specimen (specimen) 04/20/2019 3:00 PM EDT 04/20/2019 3:04 PM EDT Narrative Resulting Agency Comment Spec In Lab Bin Armstrong MD CHEMISTRY ORDERAB LES [facility] [place] [address] * EKG 12 Lead (04/20/2019 2:51 PM EDT) [facility] Ventricular rate 65 BPM MUSE SYSTEM Atrial Rate 65 BPM MUSE SYSTEM P-R Interval 158 ms MUSE SYSTEM QRS Duration 94 ms MUSE SYSTEM Q-T Interval 408 ms MUSE SYSTEM QTC Calculated (Bezet) 424 ms MUSE SYSTEM Calculated P [place] 7 degrees MUSE SYSTEM Calculated R [place] 8 degrees MUSE SYSTEM Calculated T [place] 73 degrees MUSE SYSTEM INTERPRETATION Normal sinus rhythm Normal ECG No previous ECGs available Confirmed by MD Kevni, Delmar Hoff ([id number]) on 04/22/2019 11:28:30 AM MUSE SYSTEM 04/20/2019 2:51 PM EDT 04/22/2019 11:28 AM EDT Bin Armstrong MD ECG ORDERABLES Performing Organization Address City/[facility]/ZIP Co de Phone Number MUSE SYSTEM * Film Library- Storage Only DX Chest (04/19/2019 12:00 AM EDT) [facility] - 04/20/2019 12:37 PM EDT This exam is auto-finalizing. It's purpose is for storage only. Adan Gimenez MD [facility] FILM LIBRARY ORD ERABLES Performing Organization Address [facility] de Phone Number [place], [place] * Film Library- Storage Only DX Chest (04/18/2019 12:00 AM EDT) [facility] - 04/20/2019 2:49 PM EDT This exam is auto-finalizing. It's purpose is for storage only. Stanford HENRIQUEZ IMG FILM LIBRARY OR DERABLES Performing Organization Address [facility] de Phone Number [place], [place] * Film Library- Storage Only CT Chest Abdomen Pelvis (04/17/2019 12:10 AM EDT) [facility] - 04/20/2019 12:26 PM EDT This exam is auto-finalizing. It's purpose is for storage only. Adan Gimenez MD [facility] FILM LIBRARY ORD ERABLES Performing Organization Address [facility] de Phone Number [place], [place] * Film Library- Storage Only CT Abdomen & Pelvis (04/17/2019 12:05 AM EDT) [facility] - 04/20/2019 12:23 PM EDT This exam is auto-finalizing. It's purpose is for storage only. Adan Gimenez MD [facility] FILM LIBRARY ORD ERABLES Performing Organization Address [facility]/State/ZIP Co de Phone Number [facility] [place], [place] documented in this encounter Visit Diagnoses Diagnosis Chest pain, unspecified type Upper abdominal pain Abdominal pain, other specified site Perforated gastric ulcer Chronic or unspecified gastric ulcer with perforation, without mention of obstruction documented in this encounter Admitting Diagnoses Diagnosis Perforated gastric ulcer Chronic or unspecified gastric ulcer with perforation, without mention of obstruction documented in this encounter Administered Medications Inactive Administered Medications - up to 3 most recent administrations Medication Order MAR Action Action Date Dose Rate Site dextrose 5% and sodium chloride 0.45% with potassium chloride 20 mEq infusion 1,000 mL, at 100 mL/hr, Intravenous, CONTINUOUS, Starting on Cat 04/20/19 at 1443, Until Wed04/21/19 at 0849, Warning Vesicant/Irritant Medication , Recovery (Recovery-Hospital Unit) New Bag 04/21/2019 7:36 AM EDT 1,000 mLs 100 mL /hr New Bag 04/20/2019 10:10 PM EDT 1,000 mLs 100 mL/hr Rate/Dose Verify 04/20/2019 6:13 PM EDT 100 mL/ hr enoxaparin (LOVENOX) injection 40 mg 40 mg, Subcutaneous, EVERY 12 HOURS SCHEDULED (2 times per day), First dose (after last modification) on Cat 04/20/19 at 2100, Until Discontinued, Routine Given 04/23/2019 8:38 AM EDT 40 mg Given 04/22/2019 8:42 PM EDT 40 mg Given 04/22/2019 8:36 AM EDT 40 mg fluconazole 200 mg in sodium chloride 0.9% 100 mL 200 mg, Intravenous, EVERY 24 HOURS, First dose on Cat 04/20/19 at 1515, Until Discontinued, Administer over 60 Minutes, Indication for (Active or Suspected): GI/Intra-abdominal, Restricted Antibiotic: Please indicate the most appropriate choice: Ordered from Emergency Department New Bag 04/21/2019 3:16 PM EDT 200 mg 100 mL/hr New Bag 04/20/2019 3:45 PM EDT 200 mg 100 mL/hr FLUoxetine (PROzac) capsule 20 mg 20 mg, Oral, DAILY, First dose on 04/22/19 at 1030, Until Discontinued, Routine Given 04/23/2019 8:38 AM EDT 20 mg Given 04/22/2019 11:28 AM EDT 20 mg ipratropium-albuterol (DUONEB) 0.5 mg-3 mg(2.5 mg base)/3 mL nebulizer solution 3 mL 3 mL, Nebulization, EVERY 4 HOURS PRN, Starting on [facility] 04/20/19 at 1539, Until 04/23/19 at 1635, Wheezing, Routine Given 04/23/2019 4:53 AM EDT 3 mLs Given 04/22/2019 8:43 PM EDT 3 mLs Given 04/21/2019 4:08 PM EDT 3 mLs metoprolol (LOPRESSOR) injection 5 mg 5 mg, Intravenous, EVERY 6 HOURS, First dose on [facility] 04/20/19 at 1443, Until Discontinued, Hold for SBP < 120, please page if planning to hold Given 04/22/2019 6:59 AM EDT 5 mg Given 04/22/2019 12:19 AM EDT 5 mg Given 04/21/2019 5:21 PM EDT 5 mg metoprolol tartrate (LOPRESSOR) tablet 12.5 mg 12.5 mg, Oral, EVERY 12 HOURS SCHEDULED (2 times per day), First dose on [facility] 04/22/19 at 1030, Until Discontinued, Routine Given 04/23/2019 8:38 AM EDT 12.5 mg Given 04/22/2019 8:42 PM EDT 12.5 mg Given 04/22/2019 11:23 AM EDT 12.5 mg mirtazapine (REMERON VIRAL-TAB) disintegrating tablet 7.5 mg 7.5 mg, Oral, NIGHTLY, First dose on [facility] 04/20/19 at 2100, Until Discontinued, Routine Given 04/21/2019 8:27 PM EDT 7.5 mg Given 04/20/2019 10:05 PM EDT 7.5 mg mirtazapine (REMERON) tablet 7.5 mg 7.5 mg, Oral, NIGHTLY, First dose on [facility] 04/22/19 at 2100, Until Discontinued, Routine Given 04/22/2019 8:42 PM EDT 7.5 mg nicotine (NICODERM CQ) 14 mg/24 hr patch 14 mg 14 mg (1 patch), Transdermal, Administer over 24 Hours, DAILY, First dose on [facility] 04/20/19 at 1443, Until Discontinued, Routine nicotine (NICODERM CQ) 14 mg/24 hr patch Patch Removal Transdermal, DAILY, First dose on Wed04/21/19 at 1424, Until Discontinued, Remove nicotine 14 mg/24 hr patch nicotine (NICODERM CQ) 14 mg/24 hr patch Patch Verification Transdermal, 2 TIMES DAILY, First dose on Wed04/21/19 at 0224, Until Discontinued, Verify nicotine 14 mg/24 hr patch. ondansetron (ZOFRAN) injection 4 mg 4 mg, Intravenous, EVERY 8 HOURS PRN, Starting on Wed04/21/19 at 1709, Until Wed04/23/19 at 1635, Nausea Given 04/21/2019 5:20 PM EDT 4 mg pantoprazole (PROTONIX) injection 40 mg 40 mg, Intravenous, 2 TIMES DAILY, First dose on Wed04/20/19 at 1443, Until Discontinued Given 04/22/2019 8:36 AM EDT 4 0 mg Given 04/21/2019 8:27 PM EDT 40 mg Given 04/21/2019 9:30 AM EDT 40 mg pantoprazole (PROTONIX) tablet 40 mg 40 mg, Oral, 2 TIMES DAILY, First dose on Wed04/22/19 at 1030, Until Discontinued, DO NOT CRUSH OR OPEN Given 04/23/2019 8:38 AM EDT 40 mg Given 04/22/2019 8:43 PM EDT 40 mg Given 04/22/2019 11:22 AM EDT 40 mg piperacillin-tazobactam (ZOSYN) 3.375 g vial attach to sodium chloride 0.9% 50 mL Mini-Bag Plus 3.375 g, Intravenous, EVERY 8 HOURS, First dose on Cat 04/20/19 at 1443, Until Discontinued, Administer over 4 Hours, Warning Vesicant/Irritant Medication Do not administer or Y-site with lactated ringers., Indication for (Active or Suspected): GI/Intra-abdominal New Bag 04/21/2019 3:15 PM EDT 3.375 g 12.5 mL/hr New Bag 04/21/2019 7:34 AM EDT 3.375 g 12.5 mL/hr New Bag 04/20/2019 9:55 PM EDT 3.375 g 12.5 mL/hr piperacillin-tazobactam (ZOSYN) 4.5 g vial attach to sodium chloride 0.9% 100 mL Mini-Bag Plus 4.5 g, Intravenous, EVERY 8 HOURS SCHEDULED, First dose (after last modification) on Wed04/21/19 at 2300, Until Discontinued, Administer over 4 Hours, Warning Vesicant/Irritant Medication Do not administer or Y-site with lactated ringers., Indication for (Active or Suspected): GI/Intra-abdominal New Bag 04/23/2019 6:33 AM EDT 4.5 g 25 mL/hr New Bag 04/22/2019 11:34 PM EDT 4.5 g 25 mL/hr New Bag 04/22/2019 1:50 PM EDT 4.5 g 25 mL/hr potassium chloride (K-DUR/KLOR-CON) extended release tablet 20 mEq 20 mEq, Oral, EVERY 4 HOURS, 4 doses, First dose on 04/23/19 at 0700, Last dose on Wed04/23/19 at 1900, Routine Given 04/23/2019 11:43 AM EDT 20 mEq Given 04/23/2019 8:38 AM EDT 20 mEq potassium chloride 10 mEq in 100 mL 10 mEq, Intravenous, EVERY 2 HOURS, 1 dose, First dose on Wed04/21/19 at 0915, Administer over 60 Minutes, -Use only for pateint who is NPO, lacks enteral access, or potassium level less than 2.8 mMol/L -Doses in excess of 40 mEq potassium require re-checking STAT serum potassium level 1.5 hours after completion of last dose and prior to administration of additional doses. Administer each 10 mEq/100 mL dose over 60 minutes. New Bag 04/21/2019 9:31 AM EDT 10 mE q 100 mL/hr risperiDONE (RisperDAL M-TABS) disintegrating tablet 2 mg 2 mg, Oral, NIGHTLY, First dose on Cat 04/20/19 at 2100, Until Discontinued, Routine Given 04/21/2019 8:27 PM EDT 2 mg Given 04/20/2019 10:03 PM EDT 2 mg risperiDONE (RisperDAL) tablet 2 mg 2 mg, Oral, NIGHTLY, First dose on 04/22/19 at 2100, Until Discontinued, Routine Given 04/22/2019 8:43 PM EDT 2 mg senna-docusate (PERICOLACE) 8.6-50 mg per tablet 2 tablet 2 tablet, Oral, 2 TIMES DAILY, First dose on Cat 04/20/19 at 1443, Until Discontinued, Routine Given 04/23/2019 8:38 AM EDT 2 tablets Given 04/22/2019 8:43 PM EDT 2 tablets sodium chloride 0.9 % (flush) flush 5 mL 5 mL, Intravenous, 2 TIMES DAILY, First dose on Cat 04/20/19 at 1443, Until Discontinued, Recovery (Recovery-Hospital Unit), Routine Given 04/23/2019 8:39 AM EDT 5 mLs Given 04/22/2019 8:43 PM EDT 5 mLs Given 04/22/2019 8:36 AM EDT 5 mLs documented in this encounter Active and Recently Administered Medications Times are shown in EDT. Scheduled Medication Order 04/21/2019 04/22/2019 04/23/2019 enoxaparin (LOVENOX) injection 40 mg 40 mg, Subcutaneous, EVERY 12 HOURS SCHEDULED (2 times per day), First dose (after last modification) on Cat 04/20/19 at 2100, Until Discontinued, Routine 0930 (Given - Provider: Janel Fermin, RAFAEL)2026 (Given - Provider: Barry Hodges, RAFAEL) 0836 (Given - Provider: Yesenia Price, RAFAEL)2041 (Given - Provider: Terri Barahona RN) 0838 (Given - Provider: Cydney Walker, RAFAEL) fluconazole 200 mg in sodium chloride 0.9% 100 mL (CANCELED) 200 mg, Intravenous, EVERY 24 HOURS, First dose on Cat 04/20/19 at 1515, Until Discontinued, Administer over 60 Minutes, Indication for (Active or Suspected): GI/Intra-abdominal, Restricted Antibiotic: Please indicate the most appropriate choice: Ordered from Emergency Department 1516 (New Bag - Provider: Janel Fermin, RAFAEL)1616 (Stopped - Provider: Janel Fermin RN) FLUoxetine (PROzac) capsule 20 mg 20 mg, Oral, DAILY, First dose on [facility] 04/22/19 at 1030, Until Discontinued, Routine 1128 (Given - Provider: Yesenia Price, RAFAEL) 0838 (Given - Provider: Cydney Walker, RAFAEL) metoprolol (LOPRESSOR) injection 5 mg (CANCELED) 5 mg, Intravenous, EVERY 6 HOURS, First dose on Cat 04/20/19 at 1443, Until Discontinued, Hold for SBP < 120, please page MD if planning to hold 0327 (Given - Provider: Karen Floyd RN)0931 (Given - Provider: Janel Fermin, RN)1721 (Given - Provider: Janel Fermin, RN) 0019 (Given - Provider: Masood Canales, RN)0659 (Given - Provider: Masood Canales, RAFAEL) metoprolol tartrate (LOPRESSOR) tablet 12.5 mg 12.5 mg, Oral, EVERY 12 HOURS SCHEDULED (2 times per day), First dose on 04/22/19 at 1030, Until Discontinued, Routine 1123 (Given - Provider: Yesenia Price RN)204 (Given - Provider: Terri Barahona RN) 0838 (Given - Provider: Cydney Walker, RAFAEL) mirtazapine (REMERON VIRAL-TAB) disintegrating tablet 7.5 mg (CANCELED) 7.5 mg, Oral, NIGHTLY, First dose on Cat 04/20/19 at 2100, Until Discontinued, Routine 2026 (Given - Provider: Barry Hodges, RAFAEL) mirtazapine (REMERON) tablet 7.5 mg 7.5 mg, Oral, NIGHTLY, First dose on 04/22/19 at 2100, Until Discontinued, Routine 2041 (Given - Provider: Terri Barahona, RAFAEL) nicotine (NICODERM CQ) 14 mg/24 hr patch 14 mg(Linked Group 1) 14 mg (1 patch), Transdermal, Administer over 24 Hours, DAILY, First dose on Cat 04/20/19 at 1443, Until Discontinued, Routine 0900 (Not Given - Provider: Janel Fermin RN - Reason: Patient/family refused) 0900 (Not Given - Provider: Yesenia Price RN - Reason: Patient/family refused) 0838 (Not Given - Provider: Cydney Walker RN - Reason: Patient/family refused) nicotine (NICODERM CQ) 14 mg/24 hr patch Patch Removal(Linked Group 1) Transdermal, DAILY, First dose on Wed04/21/19 at 1424, Until Discontinued, Remove nicotine 14 mg/24 hr patch 1424 (Patch Not Removed (add comment) - Provider: Janel Fermin RN - Comment: no patch present) 0900 (Patch Not Removed (add comment) - Provider: Yesenia Price RN - Comment: patient refused nicotine patch placement) 0900 (Patch Not Removed (add comment) - Provider: Cydney Walker RN - Comment: no patch on) nicotine (NICODERM CQ) 14 mg/24 hr patch Patch Verification(Linked Group 1) Transdermal, 2 TIMES DAILY, First dose on Wed04/21/19 at 0224, Until Discontinued, Verify nicotine 14 mg/24 hr patch. 0224 (Patch Not Verified (add comment) - Provider: Karen Floyd RN - Comment: pt not applied)0900 (Not Given - Provider: Janel Fermin RN - Reason: Patient/family refused - Comment: no patch)2023 (Not Given - Provider: Barry Hodges RN - Reason: Patient/family refused) 0900 (Patch Not Verified (add comment) - Provider: Yesenia Price RN - Comment: patient refused)2100 (Patch (dose and location) verified - Provider: Terri Barahona RN) 0900 (Not Given - Provider: Cydney Walker RN - Reason: Patient/family refused) pantoprazole (PROTONIX) injection 40 mg (CANCELED) 40 mg, Intravenous, 2 TIMES DAILY, First dose on Cat 04/20/19 at 1443, Until Discontinued 0930 (Given - Provider: Janel Fermin, RAFAEL)2026 (Given - Provider: Barry Hodges RN) 0836 (Given - Provider: Yesenia Price RN) pantoprazole (PROTONIX) tablet 40 mg 40 mg, Oral, 2 TIMES DAILY, First dose on 04/22/19 at 1030, Until Discontinued, DO NOT CRUSH OR OPEN 1122 (Given - Provider: Yesenia Price RN)2042 (Given - Provider: Terri Barahona RN) 0838 (Given - Provider: Cydney Walker, RAFAEL) piperacillin-tazobactam (ZOSYN) 3.375 g vial attach to sodium chloride 0.9% 50 mL Mini-Bag Plus (CANCELED) 3.375 g, Intravenous, EVERY 8 HOURS, First dose on Cat 04/20/19 at 1443, Until Discontinued, Administer over 4 Hours, Warning Vesicant/Irritant Medication Do not administer or Y-site with lactated ringers., Indication for (Active or Suspected): GI/Intra-abdominal 0155 (Stopped - Provider: Karen Floyd, RN)0734 (New Bag - Provider: Karen Floyd, RN)1134 (Stopped - Provider: Janel Fermin, RAFAEL)1515 (New Bag - Provider: Janel Fermin, RAFAEL)1915 (Stopped - Provider: Masood Canales RN) piperacillin-tazobactam (ZOSYN) 4.5 g vial attach to sodium chloride 0.9% 100 mL Mini-Bag Plus 4.5 g, Intravenous, EVERY 8 HOURS SCHEDULED, First dose (after last modification) on Wed04/21/19 at 2300, Until Discontinued, Administer over 4 Hours, Warning Vesicant/Irritant Medication Do not administer or Y-site with lactated ringers., Indication for (Active or Suspected): GI/Intra-abdominal 0017 (New Bag - Provider: Masood Canales RN)0417 (Stopped - Provider: Masood Canales RN)0537 (New Bag - Provider: Masood Canales RN)0937 (Stopped - Provider: Yesenia Price RN)1350 (New Bag - Provider: Yesenia Price, RAFAEL)1750 (Stopped - Provider: Yesenia Price, RAFAEL)2334 (New Bag - Provider: Terri Barahona RN) 0334 (Stopped - Provider: Terri Barahona RN)0633 (New Bag - Provider: Terri Barahona RN)1033 (Stopped - Provider: Cydney Walker, RAFAEL) potassium chloride (K-DUR/KLOR-CON) extended release tablet 20 mEq 20 mEq, Oral, EVERY 4 HOURS, 4 doses, First dose on 04/23/19 at 0700, Last dose on 04/23/19 at 1900, Routine 0838 (Given - Provider: Cydney Walker, RAFAEL)1143 (Given - Provider: Cydney WalkerRAFAEL) potassium chloride 10 mEq in 100 mL (COMPLETED) 10 mEq, Intravenous, EVERY 2 HOURS, 1 dose, First dose on Wed04/21/19 at 0915, Administer over 60 Minutes, -Use only for pateint who is NPO, lacks enteral access, or potassium level less than 2.8 mMol/L -Doses in excess of 40 mEq potassium require re-checking STAT serum potassium level 1.5 hours after completion of last dose and prior to administration of additional doses. Administer each 10 mEq/100 mL dose over 60 minutes. 0931 (New Bag - Provider: Janel Fermin RN)1035 (Stopped - Provider: Janel Fermin RN) risperiDONE (RisperDAL M-TABS) disintegrating tablet 2 mg (CANCELED) 2 mg, Oral, NIGHTLY, First dose on Cat 04/20/19 at 2100, Until Discontinued, Routine 2026 (Given - Provider: Barry Hodges RN) risperiDONE (RisperDAL) tablet 2 mg 2 mg, Oral, NIGHTLY, First dose on Wed04/22/19 at 2100, Until Discontinued, Routine 2042 (Given - Provider: Terri Barahona RN) senna-docusate (PERICOLACE) 8.6-50 mg per tablet 2 tablet 2 tablet, Oral, 2 TIMES DAILY, First dose on Cat 04/20/19 at 1443, Until Discontinued, Routine 0819 (Not Given - Provider: Janel Fermin RN - Reason: NPO)2100 (Not Given - Provider: Barry Hodges RN - Reason: Contraindicated) 0900 (Not Given - Provider: Yesenia Price RN - Reason: Contraindicated - Comment: liquid stools)2042 (Given - Provider: Terri Barahona RN) 0838 (Given - Provider: Cydney Walker RN) sodium chloride 0.9 % (flush) flush 5 mL 5 mL, Intravenous, 2 TIMES DAILY, First dose on Cat 04/20/19 at 1443, Until Discontinued, Recovery (Recovery-Hospital Unit), Routine 0931 (Given - Provider: Janel Fermin RN)2030 (Given - Provider: Barry Hodges RN) 0836 (Given - Provider: Yesenia Price, RN)2043 (Given - Provider: Terri Barahona RN) 0839 (Given - Provider: Cydney Walker RN) Continuous Medication Order 04/21/2019 04/22/2019 04/23/2019 dextrose 5% and sodium chloride 0.45% with potassium chloride 20 mEq infusion (CANCELED) 1,000 mL, at 100 mL/hr, Intravenous, CONTINUOUS, Starting on Cat 04/20/19 at 1443, Until Wed04/21/19 at 0849, Warning Vesicant/Irritant Medication , Recovery (Recovery-Hospital Unit) 0736 (New Bag - Provider: Karen Floyd RN)0932 (Stopped - Provider: Janel Fermin, RAFAEL) PRN Medication Order 04/21/2019 04/22/2019 04/23/2019 acetaminophen (TYLENOL) tablet 1,000 mg 1,000 mg, Oral, EVERY 6 HOURS PRN, Starting on Cat 04/20/19 at 1441, Until 04/23/19 at 1635, Pain, for MODERATE pain (4-6), Should be used concomitantly if other analgesics are ordered. Do not exceed 4,000 mg in 24 hours, Routine ipratropium-albuterol (DUONEB) 0.5 mg-3 mg(2.5 mg base)/3 mL nebulizer solution 3 mL 3 mL, Nebulization, EVERY 4 HOURS PRN, Starting on Cat 04/20/19 at 1539, Until 04/23/19 at 1635, Wheezing, Routine 0334 (Given - Provider: Karen Floyd RN)0930 (Given - Provider: Janel Fermin, RAFAEL)1608 (Given - Provider: Janel Fermin RN) 2043 (Given - Provider: Terri Barahona, RAFAEL) 0453 (Given - Provider: Terri Barahona, RAFAEL) lidocaine (XYLOCAINE) 10 mg/mL (1 %) injection 3 mg 3 mg (0.3 mL), Subcutaneous, ONCE PRN, 1 dose, Starting on Cat 04/20/19 at 1441, Until 04/23/19 at 1635, for discomfort with PIV insertion, Recovery (Recovery-Hospital Unit), Routine naloxone (NARCAN) injection 0.2 mg 0.2 mg, Intravenous, EVERY 1 MIN PRN, Starting on Cat 04/20/19 at 1441, Until 04/23/19 at 1635, Opioid Reversal, If respiratory rate less than 6 OR the patient is unable to arouse OR SpO2 is declining, Give for respiratory rate of less than or equal to 6 and patient is heavily sedated or unarousable. May repeat every 60 seconds to increase respiratory rate. DO NOT exceed 2 mg total dose., Recovery (Recovery-Hospital Unit), Routine ondansetron (ZOFRAN) injection 4 mg 4 mg, Intravenous, EVERY 8 HOURS PRN, Starting on Wed04/21/19 at 1709, Until 04/23/19 at 1635, Nausea 1720 (Given - Provider: Janel Fermin RN) sodium chloride 0.9 % (flush) flush 5-20 mL 5-20 mL, Intravenous, EVERY 1 MIN PRN, Starting on Cat 04/20/19 at 1441, Until 04/23/19 at 1635, flush, Flush pertains to all indwelling lines. Flush per protocol found in the job aid using the link provided on this medication record., Recovery (Recovery-Hospital Unit), Routine Linked Groups Order Group 1: nicotine (NICODERM CQ) 14 mg/24 hr patch 14 mgJump to med 14 mg (1 patch), Transdermal, Administer over 24 Hours, DAILY, First dose on Cat 04/20/19 at 1443, Until Discontinued, Routine And nicotine (NICODERM CQ) 14 mg/24 hr patch Patch VerificationJump to med Transdermal, 2 TIMES DAILY, First dose on Wed04/21/19 at 0224, Until Discontinued, Verify nicotine 14 mg/24 hr patch. And nicotine (NICODERM CQ) 14 mg/24 hr patch Patch RemovalJump to med Transdermal, DAILY, First dose on Wed04/21/19 at 1424, Until Discontinued, Remove nicotine 14 mg/24 hr patch documented in this encounter Care Teams Patch Setter Relationship Specialty Start Date End Date Stanford Chu PA [address] [place] [address] PCP - General General Internal Medicine 04/20/[birth year]02/24 documented as of this encounter
--- OUTSIDE RECORDS SUMMARY | 2024-08-03 10:40 | XMS_ITS | Encounter Summary ---
[place] [address] Care Team Providers Care Electrical Accessories I Assembler Name Role Phone Unknown Primary Care Provider Unavailabl e Encounter Details Date Type Department Care Team ([facility] st Contact Info) Description 07/17/2024 External Results Hematology/Oncology Unit Level [address] [place] [id number] Social History Tobacco Use Types Packs/Day Years Used Date Smoking Tobacco: Never Assessed Sex and Gender Information Value Date Recorded Sex Assigned at Not on file Gender Identity Not on file Sexual Orientation Not on file documented as of this encounter Plan of Treatment Not on file documented as of this encounter Procedures Procedure Name Priority Date/Time Associated Diagnosis Comments MISC EXTERNAL CARDIOLOGY RESULT Routine 07/17/2024 9:07 PM EST documented in this encounter Results * External Cardiology Result (07/17/2024 9:07 PM EST) Anatomical Region Laterality Modality Other Historical Provider EXTERNAL CARDIOLO GY RESULT documented in this encounter Visit Diagnoses Not on filedocumented in this encounter Care Teams Electrical Accessories I Assembler Relationship Specialty Start Date End Date Unknown None PCP - General 02/25/21 documented as of this encounter
--- OUTSIDE RECORDS SUMMARY | 2024-08-03 10:40 | XMS_ITS | Continuity of Care Document ---
Author Organization [place] - [facility] Address [address] [place] [address] Assessment No assessment recorded. Plan of Treatment Reminders Order Date Submit Date Provider Last Modified By Organization Details Last Modified Time Details Appointments Follow Up 2023 09:00A Jaime Stefanierustam Gallagherjohnie Dorsey Not available Not available Not available Follow Up 2024 09:40A M Stefanie Dorsey Not available Not available Not available Annual Wellness Exam 2024 08:00A Jaime Gallagherjohnie Dorsey Not available Not available Not available Lab None recorded. Referral None recorded. Procedures None recorded. Surgeries None recorded. Imaging None recorded. Medication Orders None recorded. Patient TargetsNo targets recorded. Patient InstructionsNo instructions recorded. Reason for Referral None Reported. Results Created Date Observation Date Name Description Value Unit Range Abnormal Flag Note LastModifiedBy Organization Detail LastModifiedTime 05/08/20 24 03/19/2022 LDCT, chest , for lung cance r scree aravind No observ ation record ed. Not Available 05/08 01:49:42 05/08/20 24 05/27/2023 LDCT, chest , for lung cance r [...] 06/26/2024 XR, shoul ciaran Patien t Name: Faustino Smith Unit #: [id number] Loc: ER Orderi ng Provid er: Accoun t #: [id number] Status : REG ER Primar y Care Provid er: Elliottsergo ce-Zachary w,Sunil na Date of Exam : Sex: M : [...] er. Views: 2 or more views. COMPAR LORNE: None. FINDIN GS: Bones/ joints : The [...] . Soft tissue s: Normal . IMPRES ALE: Minima l degene rative change s of the left should er, as descri bed above. Dictat ed and Authen ticate d by: Raul leblanc MD. Orderroxanne ng:Luciana Pedro MD Access ion#=[id number] Ordere d By: CC: ------ ------ ------ ------ ------ ------ ------ ------ ------ ------ ------ ------ ---- Dictat ed By: Report s vrad 1938 Transc ribed By: Faviola Merge 1938 This is privil eged, confid ential inform ation intend ed only for the provid er named. Any use or distri bution by any person other than this provid er is strict ly prohib ited. If you receiv e this report in error, please notify us immedi dk at and return the origin al report to us at the addres s above. Thank- you. [facility] [address], [place], [address] 06/29/2024 19:51:46 06/27/20 24 06/27/2024 x-ray imagi ng repor t Patien t Name: Faustino Smith Unit #: [id number] Loc: ER Orderi ng Provid er: Joe Hidalgo Accdarrick t #: [id number] Status : DEP ER Primar y Care Provid er: Elliottsergo weiss-Zachary w,Sunil na Date of Exam : Sex: M Admiss [...] axilla ry views were obtain ed. COMPAR LORNE: No exams were availa ble for compar lorne FINDIN GS: BONES: No acute fractu re is presen t. No bony destru ctive lesion is seen. JOINTS : No disloc ation presen t. Mild degene rative change s are seen at the acromi oclavi cular joint. SOFT TISSUE : Normal . IMPRES ALE: Mild degene rative change s seen at [...] error, please notify us immedi ately at and return the origin al report to us at the addres s above. Thank- you. INTERFACE [facility] [address], [place], [address] 06/27/2024 07:25:10 Result Notes None recorded. Problems Name Problem SNOMED Code Status Onset Date Resolution Date Notes Provider Name and Address Organization Details Recorded Time Cardiomy opathy 81645038 Active [address], [place], [address] , [facility] 4 09:29:25 Pain in left foot 06998184985 9107 Active [address], [place], [address] , [facility] 4 09:40:38 Hearing loss of right ear 473280737 Active 2014 Problem Code: H91.91; Problem Code Type: ICD-10; Alise riddle, [facility] 4 11:14:29 Major depressi on, single episode 86048569 Active 201403/30/20 22 - Comments only - Stefanie Heard [facility] - - I am concerne d that he has stopped his fluoxeti ne and risperid one, prescrib ed by [facility]. Doug does insist that he is doing very well mood rock and does not need these medicati ons. He has now been off them for over a month. He states that he informed [facility] about disconti nuing these medicati ons. I did let him know that I would be relating this informat ion to them as well. Problem Code: F32.9; Problem Code Type: ICD-10; Alise riddle, [facility] 4 11:15:01 Nicotine dependen ce 89071819 Active 201401/07/20 23 - Comments only - Stefanie Heard [facility] - - LDCT order sent to [facility] tobacco cessatio n and offered support; he states when current supply of cigarett es is gone he plant to quit, but he has said this on several occasion s over the past 2-3 years. 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 2014 Problem Code: H71.90; Problem Code Type: ICD-10; Not Available [facility] 3 05:28:21 Chronic obstruct julito pulmonar y disease 84842931 Active 201403/30/20 22 - Comments only - Stefanie Heard [facility] - - He has now been off [...] Code: J44.9; Problem Code Type: ICD-10; [facility] Hugheseri Retrace, [facility] 4 11:13:04 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 Problem Code: I42.0; Problem Code Type: ICD-10; Alise Hugheseri [facility], [facility] 4 11:13:43 Adult health examinat ion Active 201601/07/20 23 - Comments only - Stefanie Heard [facility]- - - Prevnar2 0 given today - LDCT ordered - PSA drawn - CRC screenin g up to date - F/U in 1 year, sooner prn Problem Code: Z00.00; Problem Code Type: ICD-10; Not Available [facility] 3 05:28:21 Bradycar kylee 28013462 Active 201704/17/20 22 - Comments only - Stefanie Heard [facility] - Holter monitor off metoprol ol showed [...] Code: R00.1; Problem Code Type: ICD-10; Alise Lidaelijah riddle [facility] 4 11:12:21 Abnormal weight gain 661992289 Completed 201805/04/2024 Problem Code: R63.5; Problem Code Type: ICD-10; STEFANIE HOFF, LEGAL ADMINISTRATIVE SECRETARY-BC [address], [place], [address] , [facility] 4 11:33:56 Dyspnea 619435825 Active 2018 Problem Code: R06.02; Problem Code Type: ICD-10; Not Available [facility] 3 05:28:22 Gastric ulcer 473617818 Active 03/30/20 22 - Comments only - Stefanie Heard LEGAL ADMINISTRATIVE SECRETARY-BC - - He stopped pantopra zole 40 mg daily over a month ago, per his choice. He denies any epigastr ic pain or reflux symptoms . -We will continue to monitor, and encourag ed him to restart medicati on if needed. Problem Code: K25.9; Problem Code Type: ICD-10; Alise riddle, [facility] 4 11:14:25 Counseli tung Active 202101/03/20 22 - Comments only - Stefanie Heard [facility] - - Discusse d aurelia scanlon for remember ing to take his medicati ons daily - He will try putting his meds next to the coffee pot Problem Code: Z71.89; Problem Code Type: ICD-10; Not Available [facility] 3 05:28:22 Dental caries 73011971 Completed 202105/04/2024 01/03/20 22 - Comments only - Stefanie Heard [facility] - - I will check with our communit y resource s yanely salamanca about options for dental care for Doug, and we will let him know what I find. Problem Code: K02.9; Problem Code Type: ICD-10; STEFANIE HOFF, LEGAL ADMINISTRATIVE SECRETARY-BC [address], [place], [address] , [facility] 4 11:33:42 Disorder of external ear 35098640 Active 202101/07/20 23 - Comments only - Stefanie Heard [facility] - - He will use Debro[employer] gtts and return prn for ear flush Problem Code: H61.899; Problem Code Type: ICD-10; Not Available [facility] 3 05:28:23 Julia villagomez 823292827 Active 202201/07/20 23 - Comments only - Stefanie Heard [facility]- - - Unclear reason for this. Will refer to PT for evaluati on Problem Code: R27.9; Problem Code Type: ICD-10; Alise Lida [facility], [facility] 4 11:14:58 Alcohol abuse 17465454 Active 2022 Problem Code: F10.99; Problem Code Type: ICD-10; Alise Hilton [facility], [facility] 4 11:11:56 Delay when starting to pass urine 6537926 Active 202201/07/20 23 - Comments only - Stefanie Heard [facility]- - - No symptoms suggesti ve of UTI, no hematuri a. Discusschristian d benefits , limitati ons, and risks associat ed with PSA screenin g, and he would like this checked. - Consider tamsulos in 0.4mg po qd Problem Code: R39.11; Problem Code Type: ICD-10; Alise Hilton [facility], [facility] 4 11:13:23 Pain of left shoulder joint 95388198563 172348 Completed 202206/03/2023 Problem Code: M25.512; Problem Code Type: ICD-10; Not Available [facility] 4 05:36:42 Disabili ty affectin g daily living 718350143 Completed 201201/15/2016 Problem Code: Z73.6; Problem Code Type: ICD-10; Not Available [facility] 3 05:28:25 Chest pain 64218098 Completed 201503/09/2019 Problem Code: R07.9; Problem Code Type: ICD-10; Not Available [facility] 3 05:28:26 Abscess of skin and/or subcutan eous tissue 06816126 Completed 201503/09/2019 Problem Code: L02.91; Problem Code Type: ICD-10; Not Available [facility] 3 05:28:27 Intellec tual function ing disabili ty 152142076 Completed 201205/19/2023 Problem Code: 317; Problem Code Type: ICD-9; Not Available [facility] 3 05:28:28 Asthma 772506962 Completed 201401/15/2016 Problem Code: J45.998; Problem Code Type: ICD-10; Not Available [facility] 3 05:28:28 Cardiomy opathy 56009674 Completed 201605/19/2023 Nonische mimi STEFANIE LOPEZ-Laura REW, LEGAL ADMINISTRATIVE SECRETARY-BC [address] [place], [address] [facility] 4 09:29:25 Disorder of nail 28158211 Completed 202001/06/2023 Problem Code: L60.8; Problem Code Type: ICD-10; Not Available [facility] 3 05:28:29 Prediabe geno 062475040 Completed 201801/02/2022 Problem Code: R73.03; Problem Code Type: ICD-10; Not Available [facility] 3 05:28:30 Therapeu tic drug monitori ng assay 88440390 Completed 201703/29/2022 Problem Code: Z51.81; Problem Code Type: ICD-10; Not Available [facility] 3 05:28:30 Low back pain 134184418 Completed 201703/09/2019 Problem Code: M54.5; Problem Code Type: ICD-10; Not Available [facility] 3 05:28:31 Asthma 566739658 Completed 201201/14/2016 Not Available [facility] 3 05:28:33 Hypergly cemia 41325818 Completed 201805/19/2023 Problem Code: R73.9; Problem Code Type: ICD-10; Not Available [facility] 3 05:28:34 Hyperlip idemia 32705346 Completed 201401/06/2023 Problem Code: E78.5; Problem Code Type: ICD-10; Not Available [facility] 3 05:28:35 Essentia l hyperten ale 42237187 Completed 201603/30/2022 Problem Code: I10; Problem Code Type: ICD-10; Not Available [facility] 3 05:28:36 Vitamin D deficien cy 62576928 Completed 201401/06/2023 Problem Code: E55.9; Problem Code Type: ICD-10; Not Available [facility] 3 05:28:36 Epigastr ic pain 23112987 Completed 202003/30/2022 Problem Code: R10.13; Problem Code Type: ICD-10; Not Available [facility] 3 05:28:39 Hypokale leena 23663293 Active 2022 Problem Code: E87.6; Problem Code Type: ICD-10; Not Available [facility] 4 05:36:41 Hearing loss 95844564 Completed 201409/27/2014 Removal Reason: inactive Alise riddle, [facility] 4 11:04:52 Increase d frequenc y of urinatio n 993217688 Active [address], [place], [address] , [facility] 4 11:38:30 Impaired dentitio n 879063672 Active [address], [place], [address] , [facility] 4 18:30:30 Suicidal thoughts 0883437 Active [address], [place], [address] , [facility]. 18:35:48 Problem Notes None recorded. Medical Equipment None Reported. [...] mouth at bedtime 01/12 completed rx'd by [facility] Not Available Not Available Not Available temazepam [...] tablet every day by oral route. active HS for schizoph han Not Available Not Available [...] Updated DateTime 4 177.8 cm 34.6 kg/m2 404090. 12 g 62 /min 118 mm[Hg] 64 mm[Hg] Ruthann dougherty LPN [facility] 09:58:54 Social History Question Answer Notes LastModified by Organizat ion Details LastModified Time Tobacco Smoking Status Current Every Day Smoker Ruthann Vidal LPN [facility] 01/13/2024 11:50:48 What Was The Date Of Your Most Recent Tobacco Screening? 04/06/2024 [email or web address] Information not available 04/06/2024 What Is Your Current Pack Years? 20-29packyea rs [email or web address] Information not available 01/13/2024 At What Age Did You Start Smoking Tobacco? 12 [email or web address] Information not available 04/06/2024 How Much Tobacco Do You Smoke? 0.5 PPD [email or web address] Information not available 01/13/2024 Has Tobacco Cessation Counseling Been Provided? Yes [email or web address] Information not available 01/13/2024 On What Date Was Tobacco Cessation Counseling Provided? 04/06/2024 [email or web address] Information not available 04/06/2024 How Many Years Have You Smoked Tobacco? 46 [email or web address] Information not available 04/06/2024 Do You Or Have You Ever Used Any Other Forms Of Tobacco Or Nicotine? No [email or web address] Information not available 01/13/2024 Sex: Male Functional [...] Recorded Time Tdap 5 completed Not Available [facility] 07/[facility]/2023 04:58:41 Td(adult) unspecified formulation 2 completed Not Available [facility] 07/02/2023 04:58:42 Influenza, split virus, trivalent, preservative 5 completed Not Available [facility] 07/02/2023 04:58:42 Influenza, split virus, trivalent, preservative 6 completed Not Available [facility] 07/02/2023 04:58:42 Influenza, split virus, quadrivalent, PF 2 completed Not Available [facility] 07/02/2023 04:58:42 Influenza, split virus, quadrivalent, PF 4 completed Not Available [facility] 07/02/2023 04:58:42 Influenza, split virus, quadrivalent, PF 1 completed Not Available [facility] 07/02/2023 04:58:42 zoster recombinant 1 completed Not Available [facility] 07/02/2023 04:58:43 zoster recombinant 1 completed Not Available [facility] 07/02/2023 04:58:43 COVID-19, mRNA, LNP-S, PF, 100 mcg/0.5mL dose or 50 mcg/0.25mL dose 1 completed Not Available [facility] 07/02/2023 04:58:43 COVID-19, mRNA, LNP-S, PF, 100 mcg/0.5mL dose or 50 mcg/0.25mL dose 1 completed Not Available [facility] 07/02/2023 04:58:43 COVID-19, mRNA, LNP-S, PF, 100 mcg/0.5mL dose or 50 mcg/0.25mL dose 2 completed Not Available [facility] 07/02/2023 04:58:43 COVID-19, mRNA, LNP-S, PF, 100 mcg/0.5mL dose or 50 mcg/0.25mL dose 1 completed Not Available [facility] 07/02/2023 04:58:44 Pneumococcal conjugate PCV20, polysaccharide EQV107 conjugate, adjuvant, PF 3 completed Not Available [facility] 07/02/2023 04:58:44 COVID-19, mRNA, LNP-S, bivalent, PF, 30 mcg/0.3 mL dose 2 completed Not Available [facility] 07/02/2023 04:58:44 pneumococcal polysaccharide PPV23 6 completed Not Available [facility] 07/02/2023 04:58:44 COVID-19, mRNA, LNP-S, PF, trixie-sucrose, 30 mcg/0.3 mL 4 completed Ariane riddle, [facility] 08/03/2024 10:27:14 Influenza, split virus, trivalent, PF 4 completed Ariane Beltre null, [facility] 08/03/2024 10:05:08 Influenza, split virus, quadrivalent, PF 3 completed Not Available [facility] 09/03/2023 05:32:09 COVID-19, mRNA, LNP-S, PF, trixie-sucrose, 30 mcg/0.3 mL 3 completed Not Available [facility] 09/03/2023 05:32:09 Past Encounters Encounter ID Performer Location Encounter Start Date Encounter Closed Date Diagnosis/Indication Diagnosis SNOMED-CT Code Diagnosis ICD10 Code [id number] STEFANIE VILLARREAL [facility] [address] [place] [address] 04/06/2024 10:26:28 04/06/2024 12:02:53 Hypokalemia 57108699 E87.6 Increased frequency of urination 102330838 R35.0 Impaired dentition 40054 4008 K03.9 Suicidal thoughts 838246 6 R45.482 [id number] STEFANIE VILLARREAL [facility] [address] [place] [address] 05/04/2024 09:34:31 05/04/2024 10:44:49 Increased frequency of urination 922204086 R35.0 Impaired dentition 02511 4008 K03.9 Major depr ession, single episode 89238296 F32.9 Suicidal thoughts 392410 6 R45.851 Health Concerns Section Related Observation LastModified by Organization Detai ls LastModified Time None Recorded Concern Status LastModified by Organization Details LastModified Time None Recorded Payers Encounter Date Sequence Insurance Name Policy Number Policy Echeverria Covered Member ID Echeverria Member ID Guarantor Name 05/04/2024 1 [place]ARE [place] [employer] Doug Smith [id number] Doug Smith Notes Date Note Type Note Provider Name and Address Organization Details Recorded Time 05/04/2024 text/html 3 week follow up urinary symptoms, mood, dental pain.Doug is accompanied today by [facility] staff member Kelby.Today he reports he had [...] I'd be gone on July 29 (Kait Splendora ). 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 He ultimately stopped work [...] don't want to talk about that today. STEFANIE MCCLELLAN, LEGAL ADMINISTRATIVE SECRETARY- [address], [place], [address], [facility]. 05/04/2024 11:38:09
--- OUTSIDE RECORDS SUMMARY | 2024-08-03 10:40 | XMS_ITS | Encounter Summary ---
Author Organization [facility] Address [facility] [place] [address] Care Team Providers Care Acute Care Nurse Name Role Phone Unknown Primary Care Provider Unavailabl e Encounter Details Date Type Department Care Team (Late st Contact Info) Description 07/17/2024 [place] [phone] Magalis Diamond MD [facility] [place] [address] Social History Tobacco Use Types Packs/Day Years Used Date Smoking Tobacco: Never Assessed Sex and Gender Information Value Date Recorded Sex Assigned at Not on file Gender Identity Not on file Sexual Orientation Not on file documented as of this encounter Miscellaneous Notes * Telephone Encounter - Magalis Diamond MD - 07/17/2024 9:13 PM EST Called back the TC. The patient was already accepted to [facility]. Request cancelled. documented in this encounter Plan of Treatment Not on file documented as of this encounter Visit Diagnoses Not on filedocumented in this encounter Care Teams Acute Care Nurse Relationship Specialty Start Date End Date Unknown None PCP - General 02/25/21 documented as of this encounter
--- OUTSIDE RECORDS SUMMARY | 2024-08-03 10:41 | XMS_ITS | Encounter Summary ---
Author Organization [facility] Address [address] [place] [address] Care Team Providers Care Mild Disabilities Teacher Name Role Phone Tiffanie Strickland MD Primary Care Provider Reason for Visit * Reason Onset Date Comments Medication Management 05/28/2014 Encounter Details Date Type Department Care Team (Late st Contact Info) Description 05/28/2014 [place] [address] Pelon Mckay MD [address] [facility] [address] [place] [address] Medication Management Social History Tobacco Use Types Packs/Day Years Used Date Smoking Tobacco: Every Day Cigarettes 1 35 Smokeless Tobacco: Never Alcohol Use Standard Drinks/Week Comments No 0 (1 standard drink = 0.6 oz pur e alcohol) , doesn't like alcohol Sex and Gender Information Value Date Recorded Sex Assigned at Not on file Legal Sex Male 18:17 EST Gender Identity Not on file Sexual Orientation Not on file Occupation Industry Job Start Date Job End Date Not on file Not on file Not on file Not on file documented as of this encounter Mental Status * Because of a physical, mental, or emotional condition, do you have serious difficulty concentrating, remembering, or making decisions? (5 years old or older) Answer Entry Date Author Yes 11/04/2010 14:40 EDT Barbara Johns RN documented in this encounter Miscellaneous Notes * Telephone Encounter - Pratibha Layton RN - 05/29/2014 1254 EDT Medication changed to Floxin otic per Dr. Pinzon * Telephone Encounter - Magdalena Garner - 05/28/2014 1515 EDT Emy from [facility] called asking if there is a cheaper script for Mr. Smith. The Ciprodex that was ordered will cost the patient $95.00 out of pocket. Please call [phone] documented in this encounter Plan of Treatment Not on file documented as of this encounter Visit Diagnoses Not on filedocumented in this encounter Care Teams Mild Disabilities Teacher Relationship Specialty Start Date End Date Tiffanie Strickland MD [address] [place] [address] PCP - General 10/15/10 10/01/14 documented as of this encounter
--- OUTSIDE RECORDS SUMMARY | 2024-08-03 10:41 | XMS_ITS | Encounter Summary ---
Author Organization [facility] Address [address] [place] [address] Care Team Providers Care Gas Roller Operator Name Role Phone Tiffanie Strickland MD Primary Care Provider Reason for Visit * Reason Comments Decreased Hearing Encounter Details Date Type Department Care Team (Late st Contact Info) Description 05/19/2012 15:00 EDT Office Visit [facility] ENT- Main [address] [id number] Chaz Baca MD [address] [place] [address] MARTINEZ BULLOCK [phone] MAGALIS (serous otitis media) (Primary Dx) Discharge Disposition: Auto Discharge Social History Tobacco Use Types Packs/Day Years [...] Barbara Johns RN documented in this encounter Discharge Disposition Disposition Code Departure Means Destination Auto Discharge documented in this encounter Progress Notes * Chaz Baca MD - 05/19/2012 2021 EDT Otolaryngology Progress note 05/19/2012 CC: Right sided hearing loss HPI: The patient is a 47 y.o. white male who is seen today at the request of Dr. Pinzon for evaluation of right mixed hearing loss. The patient has had history of recurring OM in childhood and has had right ear problems over the past [address] scan performed at [facility] on 04-06-2012 which did not demonstrate any bony erosionbut demonstrated opacification of the middle ear and mastoid. Audio performed in [place] on 02-16-2012 revealing right mixed hearing loss. There is no c/o otalgia or dizziness. He is complaining of tinnitus. Patient Active Problem List Diagnoses ??? Major depression ??? Suicidal ideation ??? Conductive hearing loss in right ear No past surgical history on file. Current Outpatient Prescriptions Medication Sig Dispense Refill ??? citalopram (CELEXA) 40 mg tablet Take 40 mg by mouth daily. ??? ERGOCALCIFEROL, VITAMIN D2, (VITAMIN D ORAL) Take by mouth. ??? trazodone (DESYREL) 150 mg tablet Take 150 mg by mouth at bedtime. ??? TEMAZEPAM ORAL Take by mouth. No Known Allergies PE: General: white male in no distress EARS: OTOSCOPY: Right external auditory canal: patent and non-inflamed, with slight edema of the vascular strip region. Left external auditory canal: patent and non-inflamed Right tympanic membrane: Thickened with sluggish mobility c/w effusion. Left tympanic membrane: intact and normally mobile without retraction, perforation or effusion Procedure: Right myringotomy and tube insertion was not able to be performed due to patient tolerance. 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 I offered scheduling of tube insertion in the OR, however, the patient would prefer to have this closer to home with Dr. Pinzon. Chaz Baca MD 05/22/2012 17:02 documented in this encounter Miscellaneous Notes * Scanned Note-Null - AGENT PRODUCER, SCAN 2 - 10/11/2012 1140 EST documented in this encounter Plan of Treatment Not on file documented as of this encounter Visit Diagnoses Diagnosis MAGALIS (serous otitis media)- Primary Nonsuppurative otitis media, not specified as acute or chronic documented in this encounter Care Teams Gas Roller Operator Relationship Specialty Start Date End Date Tiffanie Strickland MD [address] [place] [id number] PCP - General 10/15/10 10/01/14 documented as of this encounter
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
--- OUTSIDE RECORDS SUMMARY | 2024-08-03 10:41 | XMS_ITS | Encounter Summary ---
Author Organization [facility] [place] [place] [address] Care Team Providers Care Triage Registered Nurse Name Role Phone Unavailable Primary Care Provider Unavailabl e Encounter Details Date Type Department Care Team (Late st Contact Info) Description 04/17/2019 12:05 AM EDT Ancillary Procedure Radiology Library at [facility] [place] [id number] Social History Tobacco Use Types Packs/Day Years Used Date Smoking Tobacco: Never Assessed Sex and Gender Information Value Date Recorded Sex Assigned at Not on file Gender Identity Not on file Sexual Orientation Not on file documented as of this encounter Plan of Treatment Not on file documented as of this encounter Procedures Procedure Name Priority Date/Time Associated Diagnosis Comments FILM LIBRARY STORAGE ONLY CT ABDOMEN AND PELVIS STAT 04/17/2019 12:05 AM EDT documented in this encounter Results * Film Library- Storage Only CT Abdomen & Pelvis (04/17/2019 12:05 AM EDT) Narrative JAGRUTI - 04/20/2019 12:23 PM EDT This exam is auto-finalizing. It's purpose is for storage only. Adan Gimenez MD G FILM LIBRARY ORD ERABLES [place] documented in this encounter Visit Diagnoses Not on filedocumented in this encounter
--- OUTSIDE RECORDS SUMMARY | 2024-08-03 10:41 | XMS_ITS | Encounter Summary ---
Author Organization [facility] [place] [address] Care Team Providers Care Crystal Syrup Maker Name Role Phone Unavailable Primary Care Provider Unavailabl e Encounter Details Date Type Department Care Team (Late st Contact Info) Description 04/17/2019 12:10 AM EDT Ancillary Procedure Radiology Library at [facility] [place] [id number] Social History Tobacco Use Types Packs/Day Years [...] Diagnosis Comments FILM LIBRARY STORAGE ONLY CT CHEST ABDOMEN PELVIS STAT 04/17/2019 12:10 AM EDT documented in this encounter Results * Film Library- Storage Only CT Chest Abdomen Pelvis (04/17/2019 12:10 AM EDT) Narrative JAGRUTI - 04/20/2019 12:26 PM EDT This exam is auto-finalizing. It's purpose is for storage only. Adan Gimenez MD IMG FILM LIBRARY ORD ERABLES [place] documented in this encounter Visit Diagnoses Not on filedocumented in this encounter
--- OUTSIDE RECORDS SUMMARY | 2024-08-03 10:41 | XMS_ITS | Encounter Summary ---
Author Organization [facility] [place] [address] Care Team Providers Care Nuclear Instructor Name Role Phone Unavailable Primary Care Provider Unavailabl e Encounter Details Date Type Department Care Team (Late st Contact Info) Description 04/18/2019 Ancillary Procedure Radiology Library at [facility] [place] [phone] Social History Tobacco Use Types Packs/Day Years [...] Associated Diagnosis Comments FILM LIBRARY STORAGE ONLY DX CHEST STAT 04/18/2019 12:00 AM EDT documented in this encounter Results * Film Library- Storage Only DX Chest (04/18/2019 12:00 AM EDT) Narrative JAGRUTI - 04/20/2019 2:49 PM EDT This exam is auto-finalizing. It's purpose is for storage only. [facility] FILM LIBRARY OR DERABLES [place] documented in this encounter Visit Diagnoses Not on filedocumented in this encounter
--- OUTSIDE RECORDS SUMMARY | 2024-08-03 10:41 | XMS_ITS | Encounter Summary ---
Author Organization [facility] Address [address] [place] [address] Care Team Providers Care Meter Mechanic Name Role Phone None, Provider Primary Care Provider Unavailabl e Encounter Details Date Type Department Care Team (Late st Contact Info) Description 02/21/2021 Lab Requisition [facility] Pathology & Laboratory Medicine - [facility] [address] [place] [address] Lilia Cruz, DO [address] [place] [address] Encounter for other general examination Social History Tobacco Use Types Packs/Day Years [...] Barbara Johns RN documented in this encounter Plan of Treatment Not on file documented as of this encounter Procedures Procedure Name Priority Date/Time Associated Diagnosis Comments SURGICAL PATHOLOGY Today 02/21/2021 8: 56 EDT Encounter for other general examination documented in this encounter Results * SURGICAL PATHOLOGY (02/21/2021 8:56 EDT) Final Diagnosis Attention patients The following pathology results have been interpreted by your pathologist and may be available to you before your health provider has had the opportunity to review them. Please allow time for your provider to receive these results and explore management options, if applicable. A. JEJUNUM, PROXIMAL, BIOPSY: - Small intestinal mucosa with no significant diagnostic abnormalities. B. DUODENUM, BULB, BIOPSY: - Duodenal mucosa with no significant diagnostic abnormalities. C. STOMACH, ANTRUM, BIOPSY: - Antral mucosa with reactive (chemical) gastropathy. - Negative for Helicobacter pylori on H&E stained sections. D. STOMACH, GREATER CURVATURE, BIOPSY: - Fundic mucosa with reactive (chemical) gastropathy. - Negative for Helicobacter pylori on H&E stained sections. E. GASTROESOPHAGEAL JUNCTION, BIOPSY: - Mild chronic inflammation and mild reactive changes of squamocolumnar mucosa; changes suggestive of reflux esophagitis. - Negative for intestinal metaplasia and dysplasia. F. ESOPHAGUS, DISTAL, BIOPSY: - Squamous mucosa with mild reactive changes. 02/26/2021 12:29 [facility] Attestation By the signature below, the attending physician certifies that they have 1) personally conducted a gross and/or microscopic examination of the described specimen(s), and/or personally interpreted the results of laboratory testing of the described specimen(s), and 2) personally rendered or confirmed the above diagnosis. 02/26/2021 12:29 [facility] at 1229 Clinical History Epigastric pain 02/26/2021 12:29 [facility] Gross Description A. Received in formalin labelled with proper patient identification (initials H, V) and proximal jejunum Bx is a single fragment of pacheco-yellow tissue (0.3 x 0.3 x 0.1 cm). The specimen is submitted in A1. B. Received in formalin labelled with proper patient identification (initials H, V) and duodenal bulb Bx is a single fragment of pacheco tissue (0.2 x 0.2 x 0.2 cm). The specimen is submitted in B1. C. Received in formalin labelled with proper patient identification (initials H, V) and antrum Bx is a single fragment of pacheco tissue (0.5 x 0.2 x 0.2 cm). The specimen is submitted in C1. D. Received in formalin labelled with proper patient identification (initials H, V) and greater curve Bx is a single fragment of pacheco tissue (0.4 x 0.4 x 0.2 cm). The specimen is submitted in D1. E. Received in formalin labelled with proper patient identification (initials H, V) and GE junction Bx is a single fragment of pacheco tissue (0.3 x 0.2 x 0.2 cm). The specimen is submitted in E1. F. Received in formalin labeled with proper patient identification (initials H, V) and ? distal esophagus Bx? are 2 fragments of white tissue; each measuring 0.3 x 0.2 x 0.1 cm. The specimens are submitted in F1. MARTINEZ BLANCAS([facility]) 02/25/2021 8:39 02/26/2021 12:29 EDT [facility] Performing Lab [facility] 12:29 EDT [facility] Scanned Images 02/26/2021 12:29 EDT [facility] Tissue ENTIRE ESOPHAGUS / Unknown 02/21/2021 8:56 EDT 02/21/2021 16:42 EDT Tissue specimen (specimen) STRUCTURE OF SMALL INTESTINE / Unknown 02/21/2021 8:56 EDT 02/21/2021 16:42 EDT Tissue specimen (specimen) STOMACH STRUCTURE / Unknown 02/21/2021 8:56 EDT 02/21/2021 16:42 EDT Tissue specimen (specimen) STOMACH STRUCTURE / Unknown 02/21/2021 8:56 EDT 02/21/2021 16:42 EDT Tissue specimen (specimen) ESOPHAGEAL STRUCTURE / Unknown 02/21/2021 8:56 EDT 02/21/2021 16:42 EDT Tissue specimen (specimen) ESOPHAGEAL STRUCTURE / Unknown 02/21/2021 8:56 EDT 02/21/2021 16:42 EDT us Lilia Cruz DO PATHOLOGY ORDERABLES Final Re sult [facility] [address] [place] [address] documented in this encounter Visit Diagnoses Diagnosis Encounter for other general examination documented in this encounter Care Teams Meter Mechanic Relationship Specialty Start Date End Date None, Provider PCP - General 10/02/14 documented as of this encounter
--- OUTSIDE RECORDS SUMMARY | 2024-08-03 10:41 | XMS_ITS | Encounter Summary ---
Author Organization [facility] [place] [address] Care Team Providers Care Winterizer Name Role Phone Stanford Chu Primary Care Provider [phone] Encounter Details Date Type Department Care Team ([facility] Contact Info) Description 04/20/2019 [place] [address] Joe Tracey MD [facility] [place] [address] Social History Tobacco Use Types Packs/Day Years Used Date Smoking Tobacco: Never Assessed Sex and Gender Information Value Date Recorded Sex Assigned at Not on file Gender Identity Not on file Sexual Orientation Not on file documented as of this encounter Progress Notes * Joe Tracey MD - 04/20/2019 9:16 AM EDT 54yo M w/ hx of pulmonary hypertension, obesity, and COPD for whom radiology had been contacted by Dr. Wright from [facility] as the patient has two small perigastric fluid collection 2/2 a perforated gastric ulcer for which drain placement was being considered. Repeat CT today (images not yet available) reported demonstrate increased air within the collections suggestive of a patent perforated ulcer. Contacted transfer center who demonstrated documentation of a potential transfer for surgical management in lieu of image-guided drain placement. documented in this encounter Plan of Treatment Not on file documented as of this encounter Visit Diagnoses Not on filedocumented in this encounter Care Teams Winterizer Relationship Specialty Start Date End Date Stanford Chu PA [address] [place] [address] PCP - General General Internal Medicine 04/20/1902/24 documented as of this encounter
--- OUTSIDE RECORDS SUMMARY | 2024-08-03 10:41 | XMS_ITS | Encounter Summary ---
Author Organization [facility] Address [address] [place] [address] Care Team Providers Care Track Watchman Name Role Phone Tiffanie Strickland MD Primary Care Provider [phone] Reason for Visit * Reason Comments Ear Drainage Encounter Details Date Type Department Care Team (Late st Contact Info) Description 05/28/2014 10:30 EDT Office Visit [facility] [place] [address] Pelon Mckay MD [address] [facility] [address] [place] [address] Acute suppurative otitis media (Primary Dx) Social History Tobacco Use Types Packs/Day Years [...] Barbara Johns RN documented in this encounter Ordered Prescriptions Prescription Sig Dispense Quantity Refills Last Filled Start Date End Date ciprofloxacin-dexam ethasone (CIPRODEX) otic suspension Place 4 Drops in ear(s) 2 times daily for 7 days. 1 Bottle 2 05/28/2014 06/04/2014 amoxicillin-clavula debbie (AUGMENTIN) 875-125 mg per tablet Take 1 Tab by mouth every 12 hours for 10 days. 20 Tab 0 05/28/2014 06/07/2014 documented in this encounter Progress Notes * Pelon Mckay MD - 05/28/2014 1154 EDT Progress Note Division of Otolaryngology, Head and Neck Surgery Date of Service: 05/28/2014 Provider: PELON MCKAY MD CHIEF COMPLAINT: Chief Complaint Patient presents with ??? Ear Drainage HISTORY OF PRESENT ILLNESS: Doug Smith is a 49 y.o. year old male who comes in today because of drainage from his right ear for the past 2 weeks. His hearing has been down. It has been mildly sore. Prior to this he does not note any problems. I last saw him after a right zcbsex-bcbwp-wldz mastoidectomy with tympanoplastyin November 2012. He was supposed to follow up for a second look procedure (risk of retained cholesteatoma) and ossiculoplasty, which would have been August 2013, but did not keep those appointments. Department of Otolaryngology PHYSICAL EXAMINATION CONSTITUTIONAL: APPEARANCE: The patient appears alert, cooperative, and comfortable. ABILITY TO COMMUNICATE / VOICE: Normal for age HEAD AND FACE: FACIAL STRENGTH: Intact and symmetrical bilaterally EXTERNAL EAR & NOSE: No external ear or nose deformity noted EYES: EYES: no nystagmus EARS: OTOSCOPY: Right external auditory canal: with otorrhea, white, green, cleaned out in office Left external auditory canal: patent and non-inflamed Right tympanic membrane: inflammed, it looks like there is an anterior perforation. Left tympanic membrane: intact without retraction, perforation or effusion WHISPER/TUNING FORK: Hearing subjectively normal ASSESMENT: Encounter Diagnoses Name Primary? Acute suppurative otitis media Yes I'm not sure if this is a manifestation of recurrent cholesteatoma or if this is due to an acute otitis with perforation and drainage. Given the location of the perforation, I suspect the latter, although my area of concern at the last operation was in the anterior middle ear. I will put him on both oral and topical antibiotics and see him back in 2 weeks. We may need to consider re- imaging here. PLAN: Doug was seen today for ear drainage. Diagnoses and associated orders for this visit: Acute suppurative otitis media Other Orders - amoxicillin-clavulanate (AUGMENTIN) 875-125 mg per tablet; Take 1 Tab by mouth every 12 hours for10 days. - ciprofloxacin-dexamethasone (CIPRODEX) otic suspension; Place 4 Drops in ear(s) 2 times daily for7 days. Return in about 2 weeks (around 06/11/2014). PELON MCKAY MD documented in this encounter Plan of Treatment Not on file documented as of this encounter Visit Diagnoses Diagnosis Acute suppurative otitis media- Primary Acute suppurative otitis media without spontaneous rupture of eardrum documented in this encounter Discontinued Medications Medication Sig Discontinue Reason Start Date End Da te kbehsiae-zzifdygno-lwwuqp ortisone (CORTISPORIN) 3.5-10,000-1 mg-unit/mL-% otic suspension Use at bed time for 2 weeks in right ear 12/01/2012 05/28/2014 documented as of this encounter Care Teams Track Watchman Relationship Specialty Start Date End Date Tiffanie Strickland MD [address] [place] [address] PCP - General 10/15/10 10/01/14 documented as of this encounter
--- OUTSIDE RECORDS SUMMARY | 2024-08-03 10:41 | XMS_ITS | Encounter Summary ---
Author Organization [facility] Address [address] [place] [address] Care Team Providers Care Core Composer Feeder Name Role Phone Tiffanie Strickland MD Primary Care Provider [phone] Reason for Visit * Reason Comments Suicidal Pt to the emergency department accompanied by security after being found at the door of [facility]. Pt states that he has been going downhill since the libertarian. Was recently at family get together and found that grandchildren have moved away. Now feels that he has nothing to live for. Walked away from living situation on [facility] in [place] on Wednesday and has been living in car. States that [place]. Encounter Details Date Type Department Care Team (Late st Contact Info) Description 01/21/2011 8:43 EDT - 01/21/2011 11:35 EDT Emergency [facility] Emergency Department - Main [place] [address] [place] [address] Elroy Vazquez, PA-C [address] [address] Emergency, MD Jeffery Depression Discharge Disposition: Home or Self Care Social [...] Sign Reading Time Taken Comments Blood Pressure 162/92 01/21/2011900 EDT Pulse - - Temperature 37.2 ??C (99 ??F) 01/21/2011900 EDT Respiratory Rate 16 01/21/2011900 EDT Oxygen Saturation 98% 01/21/2011900 EDT Inhaled Oxygen Concentration - - Weight [...] documented in this encounter Discharge Instructions * Discharge Instructions* Elroy Vazquez - 01/21/2011 11:18 EDT After discharge proceed directly to [facility] on the [facility] of [facility] to establish short-term residence. Then proceed to the [facility] to establish medical care and received your daily medications. You may contact them at [phone]. Then proceed to [facility] on [facility] so you may establish financial assistance. You may contact Crisis Services 24 hours a day 7 days a week at [phone] for any support services. * Attachments The following attachments cannot be sent through Care Everywhere. * DEPRESSION TREATMENT: AFTER YOUR VISIT (SAMI) documented in this encounter Medications at Time [...] Discharge Disposition Disposition Code Departure Means Destination Comment s Home or Self Care Walk-out Other going to go to [facility] documented in this encounter Progress Notes * Irrigation LaborerZara - 01/21/2011 0000 EDT documented in this encounter ED Notes * Ember Sanchez RN - 01/21/2011 1119 EDT Pt seen and evaluated by Crisis, approved for discharge. Security and pt head of housekeeping at bedside. 1135 Discharge instructions reviewed with pt, recommendations for housing, health care and general assistance in discharge instructions. Pt given belongings back (except for rope). Ambulatory with Security. * Elroy Vazquez - 01/21/2011 0948 EDT DOS: 01/21/2011 Chief Complaint Patient presents with ??? Suicidal Pt to the emergency department accompanied by security after being found at the door of [facility]. Pt states that he has been going downhill since the libertarian. Was recently at family get together and found that grandchildren have moved away. Now feels that he has nothing to live for. Walked away from living situation on [facility] in [place] on Wednesday and has been living in car. States that he was going [place]. The patient is a 45 y.o. male who presents today with Suicidal HPI Comments: 45-year-old male presents emergency department for evaluation of suicidal ideation. Patient was escorted to the emergency department by security services. Patient was found outside of [facility] with a suicide note. Patient has had a long history of psychiatric illness.Patient states that multiple emotional events have occurred lately which the patient feels that he c an no longer go on living. Patient has a plan, patient planned on hanging himself. The history is provided by the patient. Suicidal The primary symptoms include bizarre behavior. The current episode started more than 1 month ago. This is a chronic problem. The onset of the illness is precipitated by emotional stress. Sequelae of the illness include harmed interpersonal relations and homelessness. Additional symptoms of the illness include agitation andfeelings of worthlessness. He admits to suicidal ideas. He does have a plan to commit suicide. He contemplates harming himself. He has not already injured self. He contemplates injuring another person. He has not already injured another person. Risk factors that are present for mental illness include a history of mental illness. Review of Systems Constitutional: Negative. HENT: Negative. Respiratory: Negative. Cardiovascular: Negative. Gastrointestinal: Negative. Musculoskeletal: Negative. Skin: Negative. Neurological: Negative. Psychiatric/Behavioral: Positive for suicidal ideas and agitation. Past Medical History Diagnosis Date ??? Psychiatric problem History reviewed. No pertinent past surgical history. No Known Allergies History Substance Use Topics ??? Smoking status: Current Everyday Smoker -- 1.0 packs/day ??? Smokeless tobacco: Never Used ??? Alcohol Use: No , doesn't like alcohol Family History Problem Relation Age of Onset ??? Cancer Mother ??? Stroke Father Vital Signs Temp: 37.2 ??C (99 ??F) Heart Rate: 78 BPM Resp: 16 SpO2: 98 % BP: 162/92 mmHg BP Device: BP Machine Patient Position: Sitting BP Cuff Location: Right arm O2 Device: None (Room air) Physical Exam Nursing note and vitals reviewed. Constitutional: He is oriented to person, place, and time. He appears well- developed and well-nourished. HENT: Head: Normocephalic and atraumatic. Eyes: Extraocular motions are normal. Neck: Normal range of motion. Pulmonary/Chest: Effort normal. Musculoskeletal: Normal range of motion. Neurological: He is alert and oriented to person, place, and time. Skin: Skin is warm and dry. Psychiatric: His speech is normal. His affect is angry. He is aggressive. Cognition and memory are normal. He expresses impulsivity. He expresses suicidal ideation. He expresses suicidal plans. Radiology orders: None Procedures ED Course: A medical screening exam was performed. Unremarkable physical exam. Patient and agitated state, continuously pacing in the examination room. Patient expressing suicidal ideation, continues to state that he has nothing to live for. Crisis contacted, to come to the emergency department to evaluate patient. Crisis evaluation completed. Patient to be discharged, patient given directions and phone numbers for followup for social service assistance programs. Disposition: Discharged The patient's pain was managed to an adequate level weighing risk vs. benefit of further medications. Upon departure from the Emergency Department, the patient's pain was 0 on a zero to ten scale. Condition at departure from the Emergency Department: Good Discharge Prescriptions New Prescriptions No Discharge Prescriptions for this patient MDM Number of Diagnoses or Management Options Depression: Diagnosis management comments: 4 1. Depression (311L) PCP: Tiffanie Strickland Md 01/23/2011 8:54 * Lenka Simental - 01/21/2011 0847 EDT TCALL: Doug Smith; pt found sitting outside [facility] with SI note, attempting to give away belongings; extensive psychiatric history with paranoid and psychotic tendencies per Yesenia (Nurse ManagerSB3); brought to ED via [employer] Security, who removed rope from pt's pockets; call taken by Nigel Simental RN documented in this encounter Miscellaneous Notes * Scanned Note-Null - Irrigation Laborer, Scan - 01/21/2011 0000 EDT documented in this encounter Plan of Treatment Not on file documented as of this encounter Visit Diagnoses Diagnosis Depression Depressive disorder, not elsewhere classified documented in this encounter Care Teams Core Composer Feeder Relationship Specialty Start Date End Date Tiffanie Strickland MD [address] [place] [id number] PCP - General 10/15/10 10/01/14 documented as of this encounter
--- OUTSIDE RECORDS SUMMARY | 2024-08-03 10:41 | XMS_ITS | Encounter Summary ---
Author Organization [facility] Address [address] [place] [address] Care Team Providers Care National Stormwater Leader Name Role Phone None, Provider Primary Care Provider Unavailabl e Encounter Details Date Type Department Care Team (Late st Contact Info) Description 01/05/2023 Lab Requisition [facility] Pathology & Laboratory Medicine - [facility] [address], [place] [id number] Outr Resulting Lab, Provider Social History Tobacco Use Types Packs/Day Years [...] Entry Date Author Yes 11/04/2010 14:40 EDT Barbaar Johns RN documented in this encounter Plan of Treatment Not on file documented as of this encounter Procedures Procedure Name Priority Date/Time Associated Diagnosis Comments PSA TOTAL, DIAGNOSTIC Routine 01/04/2023 12:00 EDT documented in this encounter Results * PSA TOTAL, DIAGNOSTIC (01/04/2023 12:00 EDT) PSA 0.7 <=3.5 ng/mL 01/05/2023 19:53 EDT [facility] Blood VENOUS BLOOD / Unknown 01/04/2023 12:00 EDT 01/05/2023 17:42 EDT Narrative [facility] - 01/05/2023 19:53 EDT NOTE: Serum PSA concentration should not be interpreted as absolute evidence for the presence or absence of malignant disease. Assayed on Siemens Lessons Onlyaur XPT using chemiluminescent technology.??Values obtained by using different assay methods cannot be used interchangeably. us Provider Outr Resulting Lab CHEMISTRY & BLOOD GA S ORDERABLES Final Result [facility] [address] [place] [address] documented in this encounter Visit Diagnoses Not on filedocumented in this encounter Care Teams National Stormwater Leader Relationship Specialty Start Date End Date None, Provider PCP - General 10/02/14 documented as of this encounter
--- OUTSIDE RECORDS SUMMARY | 2024-08-03 10:41 | XMS_ITS | Encounter Summary ---
Author Organization [facility] Address [address] [place] [address] Care Team Providers Care Instrumentation Manager Name Role Phone Tiffanie Strickland MD Primary Care Provider Reason for Visit * Reason Comments Follow-up Encounter Details Date Type Department Care Team (Late st Contact Info) Description 05/31/2012 9:40 EDT Office Visit [facility] ENT - [place] [address] [place] [address] Unknown, Provider, Smooth Olivarez MD [address] [facility] [address] [place] [address] Conductive hearing loss in right ear (Primary Dx) Social History Tobacco Use Types [...] Barbara Johns RN documented in this encounter Progress Notes * Smooth Pinzon MD - 05/31/2012 1007 EDT Followup of right hearing loss. SUBJECTIVE: The patient continues to complain of right ear fullness and hearing loss. OBJECTIVE: The patient was seen by Dr Baca where his exam was consistent with chronic serous otitis media. He underwent attempted myringotomy and tube placement that was unsuccessful due to patient tolerance. He is referred back for a tympanostomy and PE tube placement under sedation. OBJECTIVE: Bilateral otomicroscopy was performed and this reveals a narrow right external auditory canal and a thickened mass deep in the canal above the level of the tympanic membrane. This was removed with the suction. No bony architecture or other anatomic landmarks can be identified. IMPRESSION: Abnormal right ear canal and ear drum. PROCEDURE: Kennalog with lidocaine was injected into the right ear mass to try and shrink it down so that it can be better address for possible removal. The patient tolerated the procedure well. PLAN: Follow up with ENT in 1 to 2 weeks or p.r.n. documented in this encounter Plan of Treatment Not on file documented as of this encounter Visit Diagnoses Diagnosis Conductive hearing loss in right ear- Primary Conductive hearing loss, unilateral documented in this encounter Care Teams Instrumentation Manager Relationship Specialty Start Date End Date Tiffanie Strickland MD [address] [place] [id number] PCP - General 10/15/10 10/01/14 documented as of this encounter
--- OUTSIDE RECORDS SUMMARY | 2024-08-03 10:41 | XMS_ITS | Encounter Summary ---
Author Organization [facility] Address [address] [place] [address] Care Team Providers Care Product Design Engineer Name Role Phone Tiffanie Strickland MD Primary Care Provider [phone] Reason for Visit * Reason Comments Follow-up rt ear status post s urgery Encounter Details Date Type Department Care Team (Late st Contact Info) Description 01/23/2013 9:30 EDT Office Visit [facility] [place] [address] Pelon Mckay MD [address] [facility] [address] [place] [address] Perforation of tympanic membrane, unspecified (Primary Dx); Conductive hearing loss, middle ear; Cholesteatoma middle ear Social History Tobacco Use Types Packs/Day Years [...] Progress Notes * Pelon Mckay MD - 01/23/2013 1107 EDT Progress Note Division of Otolaryngology, Head and Neck Surgery Date of Service: 01/23/2013 Provider: PELON MCKAY MD CHIEF COMPLAINT: Chief Complaint Patient presents with ??? Follow-up rt ear status post surgery HISTORY OF PRESENT ILLNESS: Doug Smith is a 47 y.o. year old male who comes in today to follow up about 2 months after right Yboevu-lfevt-ffcd mastoidectomy with tympanoplasty. He has done well with expected hearing loss and no pain or drainage. The plan is for second look with ossiculoplasty early in the new year. Department of Otolaryngology PHYSICAL EXAMINATION CONSTITUTIONAL: APPEARANCE: The patient appears alert, cooperative, and comfortable. ABILITY TO COMMUNICATE / VOICE: Normal for age HEAD AND FACE: FACIAL STRENGTH: Intact and symmetrical bilaterally EXTERNAL EAR & NOSE: No external ear or nose deformity noted EYES: EYES: exam not performed EARS: OTOSCOPY: Right external auditory canal: patent and non-inflamed Left external auditory canal: not examined Right tympanic membrane: good position, but with small anterior TM perforation. Normal middle ear mucosa Left tympanic membrane: not examined WHISPER/TUNING FORK: Hearing subjectively normal ASSESMENT: Encounter Diagnoses Name Primary? Perforation of tympanic membrane, unspecified Yes ??? Conductive hearing loss, middle ear ??? Cholesteatoma middle ear He will keep the ear dry and see me in Jul or Jun. We can schedule planned second procedure at thattime. He will report any drainage. PLAN: Doug was seen today for follow-up. Diagnoses and associated orders for this visit: Perforation of tympanic membrane, unspecified Conductive hearing loss, middle ear Cholesteatoma middle ear Return in about 6 months (around 07/25/2013). PELON MCKAY MD documented in this encounter Plan of Treatment Not on file documented as of this encounter Visit Diagnoses Diagnosis Perforation of tympanic membrane, unspecified- Primary Conductive hearing loss, middle ear Cholesteatoma middle ear Cholesteatoma of middle ear documented in this encounter Discontinued Medications Medication Sig Discontinue Reason Start Date End Da te HYDROcodone-acetaminophe n (LORTAB) 5-500 mg tablet Take 1 Tab by mouth every 4 hours as needed for Pain. 11/16/2012 01/23/2013 documented as of this encounter Care Teams Product Design Engineer Relationship Specialty Start Date End Date Tiffanie Strickland MD [address] [place] [id number] PCP - General 10/15/10 10/01/14 documented as of this encounter
--- OUTSIDE RECORDS SUMMARY | 2024-08-03 10:41 | XMS_ITS | Encounter Summary ---
Author Organization [facility] Address [address] [place] [address] Care Team Providers Care Wheel Loader Operator Name Role Phone Tiffanie Strickland MD Primary Care Provider [phone] Reason for Visit * Reason Comments Suicidal Ideation I did the final soco ches; denies doing anything to harm self today; seen here yesterday for same; I'll just starve to ; somehow my rope disappeared, I'll just starve myself and towards the end, finish it off with a rope; [facility] security confiscated rope from pt yesterday Encounter Details Date Type Department Care Team (Late st Contact Info) Description 01/22/2011 8:20 EDT - 01/22/2011 10:03 EDT Emergency [facility] Emergency Department - [facility] [address] [place] [address] Maxi Sanchez MD Emergency, MD Jeffery Depression Discharge Disposition: Home [...] Sign Reading Time Taken Comments Blood Pressure 147/86 01/22/2011 0825 EDT Pulse 64 01/22/2011 0825 EDT Temperature 36 ??C (96.8 ??F) 01/22/2011 0825 EDT Respiratory Rate 14 01/22/2011 0825 EDT Oxygen Saturation 95% 01/22/2011 0825 EDT Inhaled Oxygen Concentration - - Weight 116.1 kg (256 lb) 01/22/2011 0825 EDT Height - - Body Mass Index 36.73 11/04/2010 0949 EDT documented in this encounter Mental Status * [...] Everywhere. * DEPRESSION TREATMENT: AFTER YOUR VISIT (SPANISH) documented in this encounter Medications at Time [...] or Self Care documented in this encounter ED Notes * Alessandra Stevens RN - 01/22/2011 0947 EDT Received report, assumed care. Affect flat, answers questions, calm and cooperative. * Marilu Cee - 01/22/2011 0925 EDT Verbal report given to Alessandra Cook RN and hand off of care completed. * Maxi Sanchez MD - 01/22/2011 0837 EDT DOS: 01/22/2011 Chief Complaint Patient presents with ??? Suicidal Ideation I did the final touches; denies doing anything to harm self today; seen here yesterday for same; I'll just starve to ; somehow my rope disappeared, I'll just starve myself and towards the end, finish it off with a rope; [facility] [employer] confiscated rope from pt yesterday The patient is a 45 y.o. male who presents today with Suicidal Ideation HPI Comments: 45-year-old white male patient who is a smoker apparently came to the hospital yesterday with a note indicating that he was intending to end his life and was seen by psychiatry. He was discharged. He returns today again saying that he will deliver a note and then hang himself. He has no other complaints. The history is provided by the patient. Suicidal The primary symptoms include dysphoric mood and bizarre behavior. The primary symptoms do not include delusions, hallucinations, disorganized speech, negative symptoms or somatic symptoms. The current episode started yesterday. The onset of the illness is precipitated by emotional stress. The degree of incapacity that he is experiencing as a consequence of his illness is moderate. Sequelae of the illness include an inability to work. Additional symptoms of the illness include agitation and feelings of worthlessness. Additional symptoms of the illness do not include no anhedonia, no insomnia, no hypersomnia, no appetite change, no unexpected weight change, no fatigue, no psychomotor retardation, no attention impairment, no euphoric mood, no increased goal- directed activity, no flight of ideas, no inflated self-esteem, no decreased need for sleep, no distractible, no poor judgment, no visual change, no headaches, noabdominal pain or no seizures. He admits to suicidal ideas. He does have a plan to commit suicide. He contemplates harming himself. He has not already injured self. He does not contemplate injuring another person. Risk factors that are present for mental illness include a history of mental illness. Review of Systems Constitutional: Negative. Negative for appetite change, fatigue and unexpected weight change. HENT: Negative. Eyes: Negative. Respiratory: Negative. Cardiovascular: Negative. Gastrointestinal: Negative. Negative for abdominal pain. Genitourinary: Negative. Musculoskeletal: Negative. Skin: Negative. Neurological: Negative. Negative for seizures and headaches. Hematological: Negative. Psychiatric/Behavioral: Positive for dysphoric mood and agitation. Negative for hallucinations. Thepatient does not have insomnia. All other systems reviewed and are negative. [...] Mother ??? Stroke Father Vital Signs Temp: 36 ??C (96.8 ??F) Temp src: Tympanic Pulse: 64 Resp: 14 SpO2: 95 % SpCO: 5 % BP: 147/86 mmHg BP Device: BP Machine Patient Position: Sitting BP Cuff Location: Left arm O2 Device: None (Room air) Physical Exam Nursing note and vitals reviewed. Constitutional: He is oriented to person, place, and time. He appears well- developed and well-nourished. HENT: Head: Normocephalic and atraumatic. Eyes: Conjunctivae and extraocular motions are normal. Pupils are equal, round, and reactive to light. Neck: Normal range of motion. Neck supple. Cardiovascular: Normal rate, regular rhythm, normal heart sounds and intact distal pulses. Pulmonary/Chest: Effort normal and breath sounds normal. Abdominal: Soft. Bowel sounds are normal. Musculoskeletal: Normal range of motion. Neurological: He is alert and oriented to person, place, and time. Skin: Skin is warm and dry. Psychiatric: He has a normal mood and affect. His behavior is normal. Thought content normal. 01/22/2011 8:40 crisis consult called. 01/22/2011 9:49 crisis has seen the patient in the emergency department and feel that he could go home. Fingerstick glucose was normal as was the oxygen saturation. Radiology orders: None Procedures ED Course: A medical screening exam was performed. History and physical were obtained by me. Consultation to crisis services was placed and they have seen the patient in the emergency department. He is being discharged. He has been given community resources to followup with. Disposition: Discharged The patient's pain was managed to an adequate level weighing risk vs. benefit of further medications. Upon departure from the Emergency Department, the patient's pain was 0 on a zero to ten scale. Condition at departure from the Emergency Department: Improved Discharge Prescriptions New Prescriptions No Discharge Prescriptions for this patient MDM 1. Depression (311L) PCP: Tiffanie Strickland Md 01/22/2011 12:29 * Marilu Cee - 01/22/2011 0832 EDT Patient is eating potato chips, security has scanned him as he has refused to change his cloths. Patient is asking for his blue rope back. * Lenka Simental - 01/22/2011 0827 EDT Pt declining to change to scrubs, [facility] security in to wand search pt; pt states I'm just here to see Dr Rodriguez and give them my note; had note during yesterday's visit per 01/21/11 provider notes; pt currently calm, cooperative; hosp sitter with pt for constant safety obs; Nicholas Fitzgerald, ED operator engineer aware of pt documented in this encounter Miscellaneous Notes * Scanned Note-Null - Molding Machine Tender, Scan - 01/22/2011 0000 EDT documented in this encounter Plan of Treatment Not on file documented as of this encounter Procedures Procedure Name Priority Date/Time Associated Diagnosis Comments GLUCOSE, GLUCOMETER Routine 01/22/2011 9 :46 EDT documented in this encounter Results * (ABNORMAL) GLUCOSE, GLUCOMETER (01/22/2011 9:46 EDT) Glucose, Fingerstick 101(H) 70 - 100 mg/dl [facility] [employer] ID [id number] Test Performed by Nursing Services [facility] 01/22/2011 9:46 EDT 01/22/2011 13:11 EDT us Provider Unknown CHEMISTRY & BLOOD GAS ORDERA BLES Final Result [facility] [address] [place] [address] documented in this encounter Visit Diagnoses Diagnosis Depression Depressive disorder, not elsewhere classified documented in this encounter Care Teams Wheel Loader Operator Relationship Specialty Start Date End Date Tiffanie Strickland MD [address] [place] [address] PCP - General 10/15/10 10/01/14 documented as of this encounter
--- OUTSIDE RECORDS SUMMARY | 2024-08-03 10:41 | XMS_ITS | Encounter Summary ---
Author Organization [facility] Address [address] [place] [address] Care Team Providers Care Swimming Pool Servicer Name Role Phone Tiffanie Strickland MD Primary Care Provider Reason for Referral * Consult (Routine/Next Available) - Closed Specialty Diagnoses / Procedures Referred By Contac t Referred To Contact Otolaryngology Diagnoses Conductive hearing loss in right ear Smooth Pinzon MD Phone: tel: fax: Referral ID Status Reason Start Date Expiration Date V isits Requested Visits Authorized [id number] Closed Specialty Services Required 04/13/2012 1 1 Question Answer Reason for Request: Dr. Cardenas for Right Aural polyp; CT done at [facility] Reason for Visit * Reason Comments Follow-up ct scan Encounter Details Date Type Department Care Team (Late st Contact Info) Description 04/13/2012 14:10 EDT Office Visit [facility] [place] [address] [place] [address] Unknown, Provider, Smooth Olivarez MD [address] [place] [address] [address] [place] [address] Conductive hearing loss in right [...] Progress Notes * Smooth Pinzon MD - 04/13/[address] scan of the temporal bones. SUBJECTIVE: Patient doing well, no new problems. OBJECTIVE: Bilateral otomicroscopy was performed. This reveals a narrow right external auditory canal and soft tissue mass filling the canal, obstructing the tympanic membrane. The CT scan was read and reviewed and this reveals a soft tissue opacification of the middle ear and mastoid, but no bone destruction. IMPRESSION: Possible large right aural polyp and chronic otitis media. PLAN: Will start patient on Cipro 500 b.i.d. and Ciprodex drops. We will refer patient to Dr Baca in [place] for further evaluation and definitive therapy. Enclosure: CT scan to Dr Chaz Baca. documented in this encounter Plan of Treatment Scheduled Referrals Name Type Priority Associated Diagnoses Orde r Schedule AMB CONSULT ENT Outpatient Referral Routine Conductive hearing loss in right ear Ordered: 04/13/2012 documented as of this encounter Visit Diagnoses Diagnosis Conductive hearing loss in right ear- Primary Conductive hearing loss, unilateral documented in this encounter Care Teams Swimming Pool Servicer Relationship Specialty Start Date End Date Tiffanie Strickland MD [address] [place] [id number] PCP - General 10/15/10 10/01/14 documented as of this encounter
--- OUTSIDE RECORDS SUMMARY | 2024-08-03 10:41 | XMS_ITS | Encounter Summary ---
Author Organization [facility] Address [address] [place] [address] Care Team Providers Care Natural Resources Engineer Name Role Phone Tiffanie Strickland MD Primary Care Provider [phone] Reason for Visit * Reason Onset Date Comments Appointment Related 05/23/2012 Encounter Details Date Type Department Care Team (Late st Contact Info) Description 05/23/2012 Telephone [facility] [address] [place] [address] Smooth Pinzon MD [address] [facility] [address] [place] [address] Appointment Related Social History Tobacco Use Types Packs/Day Years [...] encounter Miscellaneous Notes * Telephone Encounter - Rosalia Estrada - 05/23/2012 1620 EDT Doug is calling to schedule surgery with Dr. Pinzon. He was seen by Dr. Pinzon in March and referredto Dr. Baac. Dr. Baca tried to put a tube in his right ear and Doug could not sit still in the chair. Dr. Baca advised Doug call Dr. Pinzon back to try to schedule this in the OR. I scheduled an appointment with Dr. Pinzon on 05/31/12 for a re evaluation. documented in this encounter Plan of Treatment Not on file documented as of this encounter Visit Diagnoses Not on filedocumented in this encounter Care Teams Natural Resources Engineer Relationship Specialty Start Date End Date Tiffanie Strickland MD [address] [place] [address] PCP - General 10/15/10 10/01/14 documented as of this encounter
--- OUTSIDE RECORDS SUMMARY | 2024-08-03 10:41 | XMS_ITS | Encounter Summary ---
Author Organization [facility] Address [facility] [place] [address] Care Team Providers Care Senior Product Designer Name Role Phone Unavailable Primary Care Provider Unavailabl e Encounter Details Date Type Department Care Team (Late st Contact Info) Description 04/17/2019 Ancillary Procedure Radiology Library at [facility] [place] [address] Adan Gimenez MD [facility] DIAGNOSTIC [place] [address] Social History Tobacco Use Types Packs/Day Years [...] LIBRARY STORAGE ONLY CT ABDOMEN AND PELVIS Routine 04/17/2019 12:00 AM EDT documented in this encounter Results * Film Library- Storage Only CT Abdomen & Pelvis (04/17/2019 12:00 AM EDT) Narrative RAD - 04/18/2019 1:04 PM EDT This exam is auto-finalizing. It's purpose is for storage only. Adan Gimenez MD IMG FILM LIBRARY ORD ERABLES [facility] [place] documented in this encounter Visit Diagnoses Not on filedocumented in this encounter
--- OUTSIDE RECORDS SUMMARY | 2024-08-03 10:41 | XMS_ITS | Encounter Summary ---
Author Organization [facility] [place] [address] Care Team Providers Care Supervisor Photostat Name Role Phone Unavailable Primary Care Provider Unavailabl e Encounter Details Date Type Department Care Team (Late st Contact Info) Description 04/19/2019 Ancillary Procedure Radiology Library at [facility] [place] [address] Social History Tobacco Use Types Packs/Day Years [...] DX CHEST STAT 04/19/2019 12:00 AM EDT documented in this encounter Results * Film Library- Storage Only DX Chest (04/19/2019 12:00 AM EDT) Narrative JAGRUTI - 04/20/2019 12:37 PM EDT This exam is auto-finalizing. It's purpose is for storage only. Adan Gimenez MD IMG FILM LIBRARY ORD ERABLES [place] documented in this encounter Visit Diagnoses Not on filedocumented in this encounter
--- OUTSIDE RECORDS SUMMARY | 2024-08-03 10:41 | XMS_ITS | Encounter Summary ---
Author Organization [facility] Address [address] [place] [address] Care Team Providers Care Ophthalmology Surgical Technician Name Role Phone Tiffanie Strickland MD Primary Care Provider Reason for Visit * Reason Comments Follow-up rt ear Encounter Details Date Type Department Care Team (Late st Contact Info) Description 08/20/2014 13:00 EST Office Visit [facility] [place] [address] Pelon Mckay MD [address] [place] [address] [address] [place] [address] Perforation of tympanic membrane, unspecified (Primary Dx); Conductive hearing loss Social History Tobacco Use Types Packs/Day Years [...] Answer Entry Date Author Yes 11/04/2010 14:40 LOUIST Barbara Johns RN documented in this encounter Progress Notes * Pelon Mckay MD - 08/20/2014 1342 EST Progress Note Division of Otolaryngology, Head and Neck Surgery Date of Service: 08/20/2014 Provider: PELON MCKAY MD CHIEF COMPLAINT: Chief Complaint Patient presents with ??? Follow-up rt ear HISTORY OF PRESENT ILLNESS: Doug Smith is a 49 y.o. year old male who comes in today to follow up on his right tympanic membrane perforation after Ghzfck-xoadm-ycgf mastoidectomy and tympanoplasty for an extensive middle ear cholesteatoma. He was due for a second-look procedure in August 2013, but did not keep that appointment. I saw him this fall for drainage and a perforation in that ear. Since his course of drops, his ear has been dry. His hearing is still down in that ear. Department of Otolaryngology PHYSICAL EXAMINATION CONSTITUTIONAL: APPEARANCE: The patient appears alert, cooperative, and comfortable. ABILITY TO COMMUNICATE / VOICE: Normal for age HEAD AND FACE: FACIAL STRENGTH: Intact and symmetrical bilaterally EXTERNAL EAR & NOSE: No external ear or nose deformity noted EYES: EYES: no nystagmus EARS: OTOSCOPY: Right external auditory canal: patent and non-inflamed Left external auditory canal: patent and non-inflamed Right tympanic membrane: in good position, inferior 20% perforation, middle ear mucosal normal. There appears to be a stapediapexy. Left tympanic membrane: not examined WHISPER/TUNING FORK: Hearing moderately decreased AUDIOGRAM: I have reviewed the audiogram performed today by our audiology staff on Doug Smith and it demonstrates: On the left, there is a mild high-frequency sensorineural hearing loss and with normal tympanogram(s). On the right, there is a moderately severe low-frequency, high-frequency mostly conductive hearing loss with a small high-frequency sensorineural component. ASSESMENT: Encounter Diagnoses Name Primary? Perforation of tympanic membrane, unspecified Yes ??? Conductive hearing loss I still think he needs a second look, hopefully we can repair the drum and improve his hearing at the same time. I discussed risks associated with tympanoplasty surgery during today's visit with Doug Smith. These include, but are not limited to, failure of the graft and persistent perforation, failure to improve or even worse hearing or vertigo, the need for another second-look operation in the future,delayed skin cyst in the middle ear. Doug and I also discussed the possibility of incisional problems or hematoma as well as his expected post-operative course. After discussion of the risks, the patient gave written consent for this procedure. PLAN: Doug was seen today for follow-up. Diagnoses and associated orders for this visit: Perforation of tympanic membrane, unspecified Conductive hearing loss Return for surgery. PELON MCKAY MD documented in this encounter Procedure Notes * INSIDE SALES EXECUTIVE, SCAN 2 - 08/22/2014 1349 ESTAssociated Order(s): PROCEDURE REPORTS - SCANNED documented in this encounter Plan of Treatment Not on file documented as of this encounter Procedures Procedure Name Priority Date/Time Associated Diagnosis Comments PROCEDURE REPORTS - SCANNED 08/22/2014 13:49 EST documented in this encounter Results * PROCEDURE REPORTS - SCANNED (08/22/2014 13:49 EST) 08/22/2014 13:4 9 EST Narrative 08/24/2014 11:18 EST Procedure Note INSIDE SALES EXECUTIVE, SCAN 2 - 08/22/2014 13:49 EST Scan 2 [employer] PROCEDURE/MINOR SURGICAL OR DERABLES Final Result documented in this encounter Visit Diagnoses Diagnosis Perforation of tympanic membrane, unspecified- Primary Conductive hearing loss Unspecified conductive hearing loss documented in this encounter Care Teams Ophthalmology Surgical Technician Relationship Specialty Start Date End Date Tiffanie Strickland MD [address] [place] [id number] PCP - General 10/15/10 10/01/14 documented as of this encounter
--- OUTSIDE RECORDS SUMMARY | 2024-08-03 10:41 | XMS_ITS | Encounter Summary ---
Author Organization [facility] Address [address] [place] [address] Care Team Providers Care Md Senior Research Scientist Name Role Phone Tiffanie Strickland MD Primary Care Provider Encounter Details Date Type Department Care Team (Late st Contact Info) Description 08/02/2012 7:59 EST - 08/02/2012 17:00 EST Hospital Encounter [facility] Perioperative Services- [address] [address] Pelon Mckay MD [address] [facility], [address] [place] [address] Discharge Disposition: Home or Self Care Social [...] Sign Reading Time Taken Comments Blood Pressure 117/71 08/02/2012 1645 EST Pulse - - Temperature 36.2 ??C (97.2 ??F) 08/02/2012 1600 EST Respiratory Rate 12 08/02/2012 1645 EST Oxygen Saturation 94% 08/02/2012 1645 EST Inhaled Oxygen Concentration - - Weight 108.9 kg (240 lb) 07/26/2012 0932 EST Height 177.8 cm (5' 10) 07/26/2012 0932 EST Body Mass Index 34.44 07/26/2012 0932 EST documented in this encounter Mental Status * Because of a physical, mental, or emotional condition, do you have serious difficulty concentrating, remembering, or making decisions? (5 years old or older) Answer Entry Date Author Yes 11/04/2010 14:40 EDT Barbara Johns RN documented in this encounter Discharge Instructions * Discharge Instructions* Ronald Rocha MD - 08/02/2012 14:10 EST Post-Operative Instructions for Tympanoplasty Surgery 1. After surgery, you will have a special gauze dressing wrapped around the operated ear and yourhead. This dressing protects the ear as well as provides gentle pressure to the surgical area. You may remove the dressing the afternoon following surgery by carefully cutting the gauze over the forehead or releasing the Velcro strap (if present). 2. A cotton ball is placed in the ear canal. Please change the cotton ball as often as necessary. When changing the cotton ball, do not remove the yellow packing deeper within the ear canal. This will be removed by your doctor during your follow-up appointments. Expect to find some blood-tinged drainage on the cotton. This is a normal part of the healing process. 3. The incision behind your ear is closed with sutures which will be removed at your post-operativevisit. 4. It is important to keep the ear canal dry after surgery until the first follow-up visit. You canuse a cotton ball coated with Vaseline while showering or bathing to protect the ear canal from water exposure. It is OK to get the incision behind your ear wet once there hasn't been any drainage for 24 hours. Alternatively, you can use a crumpled wash cloth to protect the ear and incision line from water exposure. Some patients wash their hair in a sink for several days after surgery. 5. You may notice that your hearing has decreased or become muffled after surgery. This is usually caused by packing placed by the surgeon deep in the ear canal. This packing will remain in place for 4-6 weeks to allow for complete healing. Also you may notice clicking and popping sounds in your ear. This is also part of the healing process. 6. For the first week following surgery, please avoid vigorous activities that involve straining orlifting objects greater than ten pounds. Refrain from activities such as aerobics, weightlifting, running, bike riding, and horseback riding. 7. Do not blow your nose and if you have to sneeze do not hold it in, keep your mouth open. 8. Eardrops will be prescribed by your doctor in the post-operative period. You will begin using them 2 weeks after surgery as instructed. 9. Call your doctor's office when you get home to schedule your first follow-up appointment if it has not been scheduled already. If you experience these symptoms after surgery, you should call your doctor's office: 1) Sudden, severe drop in hearing in the operated ear. 2) An increase in dizziness or vertigo since surgery. 3) Any sign of infection in the operated ear, such as increasing pain, yellow discharge, or swelling behind the ear. To schedule an appointment or reach the clinic, please call [phone]. If you need to reach the office due to a post surgical urgent issue, please call [phone]. documented in this encounter Medications at Time of Discharge citalopram (CELEXA) 40 mg tablet Take 40 mg by mouth daily. ERGOCALCIFEROL, VITAMIN D2, (VITAMIN D ORAL) Take by mouth. risperiDONE (RISPERDAL) 1 mg tablet Take 1 mg by mouth 4 times daily as needed. TEMAZEPAM ORAL Take 15 mg by mouth at bedtime. ciprofloxacin (CIPRO) 500 mg tablet Take 1 Tab by mouth every 12 hours for 7 days. 14 Tab 0 08/02/2012 08/09/2012 ciprofloxacin-dex amethasone (CIPRODEX) otic suspension Place 4 Drops into the right ear 2 times daily for 14 days. 1 Bottle 0 08/02/2012 08/16/2012 oxycodone-acetami nophen (PERCOCET) 5-325 mg per tablet Take 1-2 Tabs by mouth every 4 hours as needed for Pain. 30 Tab 0 08/02/2012 09/12/2012 trazodone (DESYREL) 150 mg tablet Take 150 mg by mouth at bedtime. 09/24/2014 documented as of this encounter Ordered Prescriptions Prescription Sig Dispense Quantity Refills Last Filled Start Date End Date ciprofloxacin-dexa methasone (CIPRODEX) otic suspension Place 4 Drops into the right ear 2 times daily for 14 days. 1 Bottle 0 08/02/2012 08/16/2012 oxycodone-acetamin ophen (PERCOCET) 5-325 mg per tablet Take 1-2 Tabs by mouth every 4 hours as needed for Pain. 30 Tab 0 08/02/2012 09/12/2012 ciprofloxacin (CIPRO) 500 mg tablet Take 1 Tab by mouth every 12 hours for 7 days. 14 Tab 0 08/02/2012 08/09/2012 documented in this encounter Discharge Disposition Disposition Code Departure Means Destination Home or Self Care documented in this encounter Progress Notes * Ramona Templeton RN - 08/02/2012 1533 EST Awakening to name,following simple commands ,mod amount thick white sputum after cough and returns to sleep * Ramona Templeton RN - 08/02/2012 1506 EST Opening eyes to name, not following simple commands and returns to sleep. occasional prod cough which patient swallows * Ramona Templeton RN - 08/02/2012 1448 EST Mod amount thickwhite,blood tinged sputum from mouth. Strong cough * Katherine Brown RN - 07/26/2012 0954 EST Doug Smith has been instructed as follows regarding medication administration for the day of the scheduled procedure. Date of Surgery: 07/26/12 Instructions for Taking Medications Day of Surgery Medication Last Dose Hold DOS Take DOS risperiDONE (RISPERDAL) 1 mg tablet x citalopram (CELEXA) 40 mg tablet x ERGOCALCIFEROL, VITAMIN D2, (VITAMIN D ORAL) x trazodone (DESYREL) 150 mg tablet x TEMAZEPAM ORAL x documented in this encounter H&P Notes * PRECISION HONING MACHINE OPERATOR, SCAN 2 - 08/08/2012 0634 EST * Santy Patricio MD - 08/02/2012 1006 EST The pre-operative history and physical (paper chart) which was performed within 30 days of this procedure, has been reviewed and the clinically appropriate elements of the physical examination have been repeated. There are no changes to the documented history and physical or, if so, such changes are documented below. Consent reviewed. Patient marked. Santy Patricio MD [id number] Cosigned by Pelon Mckay MD at 08/10/2012 19:30 EST documented in this encounter Procedure Notes * PRECISION HONING MACHINE OPERATOR, SCAN 2 - 08/08/2012 0634 ESTAssociated Order(s): ECG REPORT - SCANNED * PRECISION HONING MACHINE OPERATOR, SCAN 2 - 08/08/2012 0634 ESTAssociated Order(s): IMPLANT RECORD - SCANNED documented in this encounter Nursing Notes * PRECISION HONING MACHINE OPERATOR, SCAN 2 - 08/08/2012 0634 EST documented in this encounter OR Notes * OR PreOp - PRECISION HONING MACHINE OPERATOR, SCAN 2 - 08/10/2012 1338 EST * Anesthesia Procedure Notes - PRECISION HONING MACHINE OPERATOR, SCAN 2 - 08/10/2012 1337 EST * OR PreOp - PRECISION HONING MACHINE OPERATOR, SCAN 2 - 08/08/2012 0634 EST * OR Surgeon - Ronald Rocha MD - 08/03/2012 0827 EST OPERATIVE REPORT SERVICE DATE: 08/02/2012 SURGEON: Pelon Mckay MD AUTO REFINISHER: Santy Patricio MD, Ronald Rocha MD PREOPERATIVE DIAGNOSIS: Right conductive hearing loss and mastoid opacification. POSTOPERATIVE DIAGNOSIS: Cholesteatoma, generalized middle ear and external auditory canal granulation tissue. PROCEDURE: Right exploratory tympanostomy with Suraj-T pressure equalization tube placement. FINDINGS: Significant thickened granulation tissue under the superior external auditory canal skin as well as significant granulation tissue within the middle ear as well as cholesteatoma. NARRATIVE: The patient was identified in preop hold where all pertinent questions were answered. The patient was brought back to the operating room where a pichardo moment was assured. The patient was placed in the supine position and adequate anesthesia was administered. The bed was rotated 90 degrees away from anesthesia. The patient's right ear was prepped and draped in the usual fashion for surgery. Under microscopic guidance, the right external auditory canal was visualized and was irrigatedout. The superior canal was thickened and the tympanic membrane was thickened as well. Ear canal incisions were made at 6 and 12 o'clock as well as two several millimeters lateral to the tympanic memb volodymyr. A posterior flap was elevated. Thereafter, a postauricular incision was made and this was taken down to the mastoid periosteum where incisions were made in a T-shaped fashion in the mastoid periosteum and the heavy periosteal elevator was used to elevate the periosteum towards the ear canal. The spine of Jose Carlos was identified and the external auditory canal was further elevated until the cuts at 6 and 12 o'clock were identified. The posterior flap was elevated and retracted using a 2-pronged Weitlaner. Thereafter, again under microscopic guidance the tympanomeatal flap was elevated. There was significant scar tissue in the superior portion of the flap and this was debrided using Bellucci scissors. The middle ear was entered inferiorly. The annulus was preserved here and there was thickened granulation tissue which was removed using cupped forceps. The dissection continued superiorly and the chorda tympani nerve was identified and preserved. At this point, again significant scar tissue was removed with the cupped forceps. The tissues were very irritated and inflamed in both theear canal as well as the middle ear mucosa. Upon further evaluation there was clear evidence of cholesteatoma within the middle ear. At this time, the decision was made to address this at a future time due to the significant inflammation and tissue edema within the ear canal. Therefore, a Suraj-T pr essure equalization tube was placed into the anterior portion of the TM, which was thinnest portion. The remaining portion was quite thickened and appeared to have some polypoid changes. Cortisporin drops were placed into the middle ear, as well as a Merocel was placed into the external auditory canal and soaked in the Cortisporin. Thereafter, the posterior flap was returned in place. After the posterior flap was placed, the Merocel was placed in the external auditory canal and soaked with the Cortisporin drops. The postauricular incision was closed in multiple layers. The periosteal layer was closed in a buried interrupted fashion and the skin was closed with 4 interrupted horizontal mattress nylon sutures. The cotton ball was placed in the external auditory canal and the traditional mastoid dressing was placed. The patient tolerated the procedure well and went to postanesthesia care unit for recovery. Dr Pelon Mckay was present and actively participated in the care of this patient. ESTIMATED BLOOD LOSS: Less than 15 mL. FLUIDS: 800 mL lactated Ringer's. URINE OUTPUT: Not recorded. SPECIMENS: Middle ear contents as well as external auditory canal tissue. CULTURES: None. DRAINS, PACKS AND FOREIGN MATERIALS RETAINED: Zafar-Wick in the right external auditory canal, and a Suraj-T tube in the right side. COMPLICATIONS: None. CONDITION: Good to PACU. Unless otherwise noted, there were no complications, no blood loss, no cultures obtained, no specimens removed, and no drains retained. Pelon Mckay MD 07 53 PM / Ronald Rocha MD cs Confirmation: [id number] Dictation ID: [id number] cc:Santy Mckay MD * Anesthesia Preprocedure Evaluation - PRECISION HONING MACHINE OPERATOR, SCAN 2 - 08/02/2012 1244 EST documented in this encounter Miscellaneous Notes * Scanned Note-Null - PRECISION HONING MACHINE OPERATOR, SCAN 2 - 08/08/2012 0634 EST * Scanned Note-Null - PRECISION HONING MACHINE OPERATOR, SCAN 2 - 08/08/2012 0634 EST * Anesthesia Post-Eval - Domingo Blevins MD - 08/02/2012 1630 EST Post Anesthesia Evaluation Note Date of Service: 08/02/2012 Doug Smith, a 47 y.o. year old male has received General Anesthesia today. He has been evaluated, assessed and discharged from anesthesia care with stable cardiorespiratory function and alert mental status. The last set of recorded vital signs and pain rating were reviewed: Temp: 36.2 ??C (97.2 ??F) (08/02/12 1600), Heart Rate: 68 BPM (08/02/12 161), BP: 132/77 mmHg (08/02/12 161), Resp: 17 (08/02/12 161), SpO2: 95 % (08/02/121614),Numeric Pain Level (Scale 1-10): 4 Adult Nonverbal Pain ScaleTotal: 0 Denies CP, SOB, Nausea. Instructed not to drink alcohol or drive today. Doug Smith participated in this evaluation unless otherwise noted. His pain, nausea and vomiting have been managed and his body temperature and fluid balance have been restored. Additional monitoring and assessment needs have been addressed. If present, any postoperative events are documented below. Domingo Blevins MD 08/02/2012 16:30 * Brief Op Note - Santy Patricio MD - 08/02/2012 1008 EST Otolaryngology, Head & Neck Surgery BRIEF OPERATIVE NOTE Hospital LOS: 0 days Date: 08/02/2012 Pre-Op Diagnosis: right chronic serous otitis media and conductive hearing loss Post-Op Diagnosis: same Procedure: post-auricular exploration of the right middle ear and placement of right PET Surgeon: Pelon Mckay MD Automotive General Manager: Jarek Rocha MD Anesth: General - ET Findings: 1. Granulation tissue in middle ear 2. Cholesteatoma in middle ear 3. Significant edema of TM, EAC, middle ear mucosa EBL: <15 cc IVF: 800 cc Specimen: none Retained Material / Drains: otowick in right EAC, Suraj-T tube in right TM Cultures: none Complications: none Dispo: extubated, to PACU in stable condition Santy Patricio MD Otolaryngology, Head & Neck Surgery Please call the [facility] service pager with any questions or concerns. 14:14 08/02/2012 documented in this encounter Plan of Treatment Not on file documented as of this encounter Procedures Procedure Name Priority Date/Time Associated Diagnosis Comments IMPLANT RECORD - SCANNED 08/08/2012 6:34 EST ECG REPORT - SCANNED 08/08/2012 6:34 EST documented in this encounter Results * IMPLANT RECORD - SCANNED (08/08/2012 6:34 EST) 08/08/2012 6:34 EST Narrative 08/08/2012 6:46 EST Procedure Note PRECISION HONING MACHINE OPERATOR, SCAN 2 - 08/08/2012 6:34 EST us Scan 2 Food Counter Worker PROCEDURE/MINOR SURGICAL OR DERABLES Final Result * ECG REPORT - SCANNED (08/08/2012 6:34 EST) 08/08/2012 6:34 EST Narrative 08/08/2012 6:46 EST Procedure Note PRECISION HONING MACHINE OPERATOR, SCAN 2 - 08/08/2012 6:34 EST us Scan 2 Food Counter Worker PROCEDURE/MINOR SURGICAL OR DERABLES Final Result documented in this encounter Visit Diagnoses Not on filedocumented in this encounter Administered Medications Inactive Administered Medications - up to 3 most recent administrations Medication Order MAR Action Action Date Dose Rate Site lactated ringers (LR) infusion at 25 mL/hr, intravenous, CONTINUOUS, Starting on Wed08/02/12 at 0945, Until Wed08/02/12 at 1905, Routine, Pre-Op DOS Rx Approved New Bag 08/02/2012 9:25 EST 25 mL/hr lactated ringers (LR) infusion at 75 mL/hr, intravenous, CONTINUOUS, Starting on Wed08/02/12 at 1445, Until Wed08/02/12 at 1905, Routine, Recovery (only) New Bag 08/02/2012 16:00 EST 75 mL/hr Rate Documented 08/02/2012 14:31 EST 75 mL/hr oxycodone-acetaminophen (PERCOCET) 5-325 mg per tablet 1-2 Tab 1-2 Tablet, oral, PRN, 2 doses, Starting on Wed08/02/12 at 1415, Until Wed08/02/12 at 1905, Pain, Routine, Recovery (only) Given 08/02/2012 16:00 EST 1 Tablet documented in this encounter Active and Recently Administered Medications Times are shown in EST. Continuous Medication Order 07/31/2012 08/01/2012 08/02/2012 lactated ringers (LR) infusion (CANCELED) at 25 mL/hr, intravenous, CONTINUOUS, Starting on e 08/02/12 at 0945, Until Tu08/02/12 at 1905, Routine, Pre-Op DOS Rx Approved 09 (New Bag - Prov ider: Bethany Aviles RN)1431 (Completed - Provider: Ramona Templeton RN) lactated ringers (LR) infusion (CANCELED) at 75 mL/hr, intravenous, CONTINUOUS, Starting on Wed08/02/12 at 1445, Until Wed08/02/12 at 1905, Routine, Recovery (only) 1431 (Rate Documente d - Provider: Ramona Templeton, RAFAEL)1600 (New Bag - Provider: Ramona Templeton RN) PRN Medication Order 07/31/2012 08/01/2012 08/02/2012 oxycodone-acetaminophen (PERCOCET) 5-325 mg per tablet 1-2 Tab (CANCELED) 1-2 Tablet, oral, PRN, 2 doses, Starting on Wed08/02/12 at 1415, Until Wed08/02/12 at 1905, Pain, Routine, Recovery (only) 1600 (Given - Provid er: Ramona Templeton RN) documented in this encounter Orders Medications Ordered That Ulysses ht Not Have Been Administered Count Last Ordered Date First Ordered Date atropine 0.1 mg/mL 10 mL syringe 0.5 mg 1 1 10/03/2011 diphenhydrAMINE (BENADRYL) i njection 6.25 mg 1 08/02/2012 fentanyl citrate (PF) 50 mcg /mL injection 50 mcg 1 08/02/2012 meperidine (PF) (DEMEROL) 25 mg/0.5 mL injection 25 mg 1 08/02/2012 morphine injection 1 mg 1 08/02/2012 naloxone (NARCAN) injection 0.2 mg 1 2011 Nursing Count Last Ordered Date First Orde red Date INSERT PERIPHERAL IV 1 08/02/2012 Transfer Count Last Ordered Date First Orde red Date NOTIFY PPS PACU PATIENT DISCHARGE 1 012 NOTIFY PPS PATIENT ARRIVAL IN PACU 1 2011 Discharge Count Last Ordered Date First Orde red Date DISCHARGE PATIENT 1 08/02/2012 documented in this encounter Care Teams Md Senior Research Scientist Relationship Specialty Start Date End Date Tiffanie Strickland MD [address] [place] [id number] PCP - General 10/15/10 10/01/14 documented as of this encounter
--- OUTSIDE RECORDS SUMMARY | 2024-08-03 10:41 | XMS_ITS | Encounter Summary ---
Author Organization [facility] Address [address] [place] [address] Care Team Providers Care Optomechanical Technician Name Role Phone Tiffanie Strickland MD Primary Care Provider Reason for Visit * Reason Comments Ear Fullness rt ear. second opini on has seen Dr Pinzon Encounter Details Date Type Department Care Team (Late st Contact Info) Description 07/11/2012 14:30 EST Office Visit [facility] ENT - [address] [address] Pelon Mckay MD [address] [place] [address] [address] [place] [address] Conductive hearing loss, middle ear (Primary Dx); Mastoid disorder Social History Tobacco Use Types Packs/Day Years [...] Progress Notes * Pelon Mckay MD - 07/18/2012 1153 EST Progress Note Division of Otolaryngology, Head and Neck Surgery Date of Service: 07/11/2012 Provider: PELON MCKAY MD CHIEF COMPLAINT: Chief Complaint Patient presents with ??? Ear Fullness rt ear. second opinion has seen Dr Pinzon HISTORY OF PRESENT ILLNESS: Doug Smith is a 47 y.o. year old male who comes in today for another opinion regarding management of his right hearing loss and likely mastoid and middle ear effusion. He has seen Dr. Pinzon who treated what sounds like a polyp. He had a CT scan that demonstrated fluid. He also saw Dr. Baca who attempted to place a PE tube in the office but was unsuccessful due to patient discomfort. I'm not sure if Dr. Baca had access to the CT scan at the time of the visit. Mr. Smith notes that his hearing loss has been longstanding. He has no pain or dizziness or recent drainage. Department of Otolaryngology PHYSICAL EXAMINATION CONSTITUTIONAL: APPEARANCE: The patient appears alert, cooperative, and comfortable. ABILITY TO COMMUNICATE / VOICE: Normal for age HEAD AND FACE: FACIAL STRENGTH: Intact and symmetrical bilaterally EXTERNAL EAR & NOSE: No external ear or nose deformity noted EYES: EYES: no nystagmus EARS: OTOSCOPY: Right external auditory canal: There is swelling of the posterior medial ear canal that I can compress with an instrument under the operating microscope. It decompresses briefly and refills. The patient hears fluid moving when I do this. Left external auditory canal: patent and non-inflamed Right tympanic membrane: appears dull, slightly lateralized and without normal landmarks. It is non-inflammed. I don't see any polyp Left tympanic membrane: intact and normally mobile without retraction, perforation or effusion WHISPER/TUNING FORK: Hearing mildly decreased I reviewed the audiogram from this summer from [facility] that shows a mild bilateral high-frequency sensorineural hearing loss with a maximal conductive loss superimposed on the right ear only. I reviewed the CT scan that demonstrates opacification of the middle ear and mastoid with normal bony architecture. There is fluid under the canal skin and the TM appears lateralized which is very unusual. ASSESMENT: Encounter Diagnoses Name Primary? Conductive hearing loss, middle ear Yes ??? Mastoid disorder I reviewed the images with Dr. Baca and discussed this with Dr. Pinzon. 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 I think a CSF leak is unlikely. I don't think it would be easy or adequate just to place a PE tube. I think this patient should have a middle ear exploration via a post-auricular approach with possible mastoidectomy if indicated. We may also place a tube. I have discussed this with the patient and he would like to pursue this route. We'll schedule this in the OR in [place]. PLAN: Doug was seen today for ear fullness. Diagnoses and associated orders for this visit: Conductive hearing loss, middle ear Mastoid disorder PELON MCKAY MD documented in this encounter Plan of Treatment Not on file documented as of this encounter Visit Diagnoses Diagnosis Conductive hearing loss, middle ear- Primary Mastoid disorder Other disorder of mastoid documented in this encounter Historical Medications * This list may reflect changes made after this encounter. risperiDONE (RISPERDAL) 1 mg tablet Take 1 mg by mouth 4 times daily as needed. added in this encounter Care Teams Optomechanical Technician Relationship Specialty Start Date End Date Tiffanie Strickland MD [address] [place] [id number] PCP - General 10/15/10 10/01/14 documented as of this encounter
--- OUTSIDE RECORDS SUMMARY | 2024-08-03 10:41 | XMS_ITS | Encounter Summary ---
Author Organization [facility] Address [address] [place] [address] Care Team Providers Care Info Analyst Name Role Phone Tiffanie Strickland MD Primary Care Provider [phone] Reason for Visit * Reason Comments Suicidal Pt to the emergency department with statement that everything has gone to hell and I don't care anymore. Pt found outside the third floor cafeteria sitting on a chair. Speech is slurred. States that he never left the grounds after discharge. States that car has gone to hell, where can I go don't have a phone, who can I call. Encounter Details Date Type Department Care Team (Late st Contact Info) Description 01/23/2011 9:08 EDT - 01/23/2011 15:18 EDT Emergency [facility] Emergency Department - [address] [address] Edgar Donohue MD [address] [facility], Level 1 [place] [address] Emergency, MD Jeffery Fatigue Discharge Disposition: Home or Self Care Social [...] Sign Reading Time Taken Comments Blood Pressure 100/57 01/23/2011 1230 EDT Pulse - - Temperature 35.8 ??C (96.4 ??F) 01/23/201114 EDT Respiratory Rate 17 01/23/2011 1230 EDT Oxygen Saturation 95% 01/23/2011 1230 EDT Inhaled Oxygen Concentration - - Weight 116.1 kg (256 lb) 01/23/2011913 EDT Height 177.8 cm (5' 10) 01/23/2011913 EDT Body Mass Index 36.73 01/23/2011913 EDT documented in this encounter Mental Status * Because of a physical, mental, or emotional condition, do you have serious difficulty concentrating, remembering, or making decisions? (5 years old or older) Answer Entry Date Author Yes 11/04/2010 14:40 EDT Barbara Johns RN documented in this encounter Discharge Instructions * Discharge Instructions* Edgar Donohue MD - 01/23/2011 15:10 EDT Return if symptoms worsen his symptoms develop. Followup primary care physician. * Attachments The following attachments cannot be sent through Care Everywhere. * FATIGUE: AFTER YOUR VISIT (THAI) documented in this encounter Medications at Time [...] Code Departure Means Destination Home or Self Group Home documented in this encounter ED Notes * Otilia Mcfarlane RN - 01/23/2011 1517 EDT SL removed, DC instructions to pt. Pt escorted out of ED/Hospital w/ public affairs manager, w/ Security observation * Brigitte Estrada RN - 01/23/2011 1355 EDT Pt remains drowsy, arouses with dayana physical stimuli but difficult to arouse with loud voice. Attempted to stand pt on side of bed to obtain urine sample. Pt unsteady on feet, unable to keep eyesopen. Returned to bed. I&O cath'd for 600mL clear yellow urine. Pt tolerated well. Minimal response from pt during procedure. Urine to lab. * Otilia Mcfarlane RN - 01/23/2011 1105 EDT Assumed care of pt, pt sleeping w/ sitter in room. Sitter states he has been quiet and/or sleeping * Edgar Donohue MD - 01/23/2011 0931 EDT DOS: 01/23/2011 Chief Complaint Patient presents with ??? Suicidal Pt to the emergency department with statement that everything has gone to hell and I don't care anymore. Pt found outside the third floor cafeteria sitting on a chair. Speech is slurred. States that he never left the grounds after discharge. States that car has gone to hell, where can I go don't have a phone, who can I call. The patient is a 45 y.o. male who presents today with Suicidal HPI Comments: The patient is a 45-year-old male who presents to the emergency department after reportedly being found slumped over a chair and unresponsive on the third floor the hospital. Patient arrives with his eyes closed not responding.patient eventually responded when asked why he was to emergency department it was because he is stranded. Patient states that his car won't start. Patient states that he does not have a phone to call someone with. . Patient currently denies that he wants to hurt himself or others. It is not clear what he was doing upstairs in the hospital. Patient deniesheadache, blurred vision, chest pain, shortness of breath, palpitations, abdominal pain, nausea vomiting or diarrhea. Patient denies skin rashes. Patient states his long history of alcohol abuse. Thepatient has a history of major depression.patient denies that he wants to hurt himself or others. The history is provided by the patient. Altered Mental Status This is a new problem. Episode onset: unknown. The problem has been resolved. Associated symptoms include somnolence. Pertinent negatives include no confusion, no seizures, no weakness, no agitation,no hallucinations, no self- injury and no violence. depression, alcohol dependence Review of Systems Constitutional: Negative for fever, chills, diaphoresis and fatigue. HENT: Negative for hearing loss, sore throat, drooling, neck pain, neck stiffness, postnasal drip and ear discharge. Eyes: Negative for visual disturbance. Respiratory: Negative for shortness of breath. Cardiovascular: Negative for chest pain. Gastrointestinal: Negative for nausea, abdominal pain and diarrhea. Genitourinary: Negative for dysuria. Musculoskeletal: Negative for back pain. Skin: Negative for rash. Neurological: Negative for dizziness, seizures, facial asymmetry, weakness, light-headedness, numbness and headaches. Hematological: Negative. Psychiatric/Behavioral: Positive for behavioral problems and sleep disturbance. Negative for suicidal ideas, hallucinations, confusion, self-injury and agitation. The patient is not nervous/anxious. All other systems reviewed and are negative. [...] Mother ??? Stroke Father Vital Signs Temp: 35.8 ??C (96.4 ??F) Temp src: Tympanic Heart Rate: 76 BPM Resp: 17 SpO2: 95 % BP: 100/57 mmHg BP Device: BP Machine Patient Position: Sitting BP Cuff Location: Right arm O2 Device: None (Room air) Physical Exam Nursing note and vitals reviewed. Constitutional: He is oriented to person, place, and time. He appears well- developed and well-nourished. Disheveled male easily arousable in no acute distress HENT: Head: Normocephalic and atraumatic. Right Ear: External ear normal. Left Ear: External ear normal. Nose: Nose normal. Eyes: Pupils are equal, round, and reactive to light. Right eye exhibits no discharge. Left eye exhibits no discharge. Neck: Normal range of motion. Neck supple. No tracheal deviation present. Cardiovascular: Normal rate, regular rhythm, normal heart sounds and intact distal pulses. Pulmonary/Chest: Effort normal and breath sounds normal. Abdominal: Soft. Bowel sounds are normal. He exhibits no distension. No tenderness. Musculoskeletal: Normal range of motion. Neurological: He is alert and oriented to person, place, and time. He has normal strength. He is not disoriented. No cranial nerve deficit or sensory deficit. Skin: Skin is warm and dry. No rash noted. Psychiatric: He has a normal mood and affect. Radiology orders: None Procedures ED Course: A medical screening exam was performed. The patient is a 45-year-old male with history of alcohol dependence and depression who presents after being found unresponsive slumped in a chair on the third floor the hospital. On arrival to theemergency department the patient is sleepy but easily arousable.. Patient's main complaint is that he is stranded.patient's pain yesterday in the emergency department was evaluated by crisis and was discharged. On physical exam the patient has a nonfocal neurologic exam. Patient very sleepy when I went back into the room he was sound asleep. -EKG normal sinus rhythm no acute ST-T wave changes. Laboratory tests-reviewed, alcohol level not elevated Toxicology screen negative. Repeat exam at 3 PM patient awake alert patient requested discharge home. Patient discharged home. Disposition: Discharged The patient's pain was managed to an adequate level weighing risk vs. benefit of further medications. Upon departure from the Emergency Department, the patient's pain was 0 on a zero to ten scale. Condition at departure from the Emergency Department: Improved Discharge Prescriptions New Prescriptions No Discharge Prescriptions for this patient MDM Number of Diagnoses or Management Options Fatigue: new, needed workup Amount and/or Complexity of Data Reviewed Clinical lab tests: ordered and reviewed Decide to obtain previous medical records or to obtain history from someone other than the patient:yes Independent visualization of images, tracings, or specimens: yes (Laboratory tests,EKG) Risk of Complications, Morbidity, and/or Mortality Presenting problems: moderate Diagnostic procedures: moderate Management options: moderate General comments: 4 Patient Progress Patient progress: improved 1. Fatigue (780.79B) PCP: Tiffanie Strickland Md 01/23/2011 15:18 documented in this encounter Miscellaneous Notes * Scanned Note-Null - Voice Network Administrator, Scan - 01/23/2011 0000 EDT * Scanned Note-Null - Voice Network Administrator, Scan - 01/23/2011 0000 EDT documented in this encounter Plan of Treatment Not on file documented as of this encounter Procedures Procedure Name Priority Date/Time Associated Diagnosis Comments DRUG SCREEN 6 STAT 01/23/2011 13:53 EDT POCT ALCOHOL BREATH TEST STAT 01/23/2011 9:51 EDT SCREENING GLUCOSE STAT 01/23/2011 9:3 2 EDT COMPLETE BLOOD COUNT AND DIFFERENTIAL STAT 01/23/2011 9:32 EDT BUN STAT 01/23/2011 9:32 EDT CREATININE STAT 01/23/2011 9:32 EDT ELECTROLYTES STAT 01/23/2011 9:32 EDT documented in this encounter Results * DRUG SCREEN 6 (01/23/2011 13:53 EDT) Amphetamine Screen, Urine Negative screen. Confirmation testing available upon request. Suitable for medical purposes only. Will not detect all drugs within class. Cutoff = 1000 ng/ml [facility] Barbiturate Screen, Urine Negative screen. Confirmation testing available upon request. Suitable for medical purposes only. Will not detect all drugs within class. Cutoff = 300 ng/ml [facility] Benzodiazepine Screen, Urine Negative screen. Confirmation testing available upon request. Suitable for medical purposes only. Will not detect all drugs within class. Assay less sensitive to Lorazepam and metabolites. Cutoff = 200 ng/ml [facility] Cannabinoid Scrn, Ur Negative screen. Confirmation testing available upon request. Suitable for medical purposes only. Will not detect all drugs within class. Cutoff = 50 ng/ml [facility] Cocaine Metabolites, Ur Negative screen. Confirmation testing available upon request. Suitable for medical purposes only. Will not detect all drugs within class. Cutoff = 300 ng/ml [facility] Opiate Scrn, Ur Negative screen. Confirmation testing available upon request. Suitable for medical purposes only. Will not detect all drugs within class. Cutoff = 300 ng/ml Does not detect oxycodone, oxycontin or methadone. [facility] Urine specimen (specimen) 01/23/2011 13:53 EDT 01/23/2011 14:05 EDT Edgar Donohue MD URINALYSIS ORDERABLES Final R esult Performing Organization Address City/[facility]/ZIP Co de Phone Number [facility] [address] [place] [address] * (ABNORMAL) POCT ALCOHOL BREATH TEST (01/23/2011 9:51 EDT) Ethanol Lvl <=0.000 % BPA POINT OF CARE Comment:.003 01/23/2011 9:51 EDT Edgar Donohue MD POINT OF CARE TEST ORDERABLES Final Result Performing Organization Address City/[facility] Co de Phone Number POINT OF CARE * (ABNORMAL) HEMAGRAM AND DIFFERENTIAL (01/23/2011 9:32 EDT) WBC 4.74 4.0 - 10.4 K/cmm [facility] RBC 5.10 4.36 - 5.78 M/cmm [facility] Hemoglobin 14.2 13.8 - 17.3 gm/dl [facility] HCT 44.5 39.5 - 50.2 % [facility] MCV 87 81 - 95 fl [facility] MCH 27.8 27.6 - 33.0 pg [facility] MCHC 31.9(L) 32.8 - 36.4 gm/dl [facility] PLT 213 141 - 320 K/cmm [facility] RDW-CV 14.6(H) 11.8 - 14.1 % [facility] % Neutrophils 61.5 45.5 - 79.7 % [facility] % Lymphocytes 27.6 15.0 - 46.8 % [facility] % Monocytes 6.3 1.8 - 12.0 % [facility] % Eosinophils 3.9 0.6 - 6.9 % [facility] % Basophils 0.7 0.2 - 1.4 % [facility] ABS Neutrophils 2.91 2.20 - 8.85 K/cmm [facility] ABS Lymphs 1.31 1.09 - 3.30 K/cmm [facility] ABS Monocytes 0.30 0.1 - 0.8 K/cmm [facility] ABS Eosinophils 0.19 0.03 - 0.61 K/cmm [facility] ABS Basophils 0.03 0.01 - 0.11 K/cmm [facility] Type of Diff: Automated [facility] Blood specimen (specimen) 01/23/2011 9:32 EDT 01/23/2011 9:46 EDT Edgar Donohue MD PACKAGES & DNA PROBE ORDERABL ES Final Result Performing Organization Address City/[facility]/ZIP Co de Phone Number [facility] [address] [place] [address] * CREATININE (01/23/2011 9:32 EDT) Pathologist [facility] Creatinine 0.80 0.7 - 1.5 mg/dl [facility] GFR, Calculated >60 ml/min/1.7 3m2 [facility] Blood specimen (specimen) 01/23/2011 9:32 EDT 01/23/2011 9:46 EDT Edgar Donohue MD CHEMISTRY & BLOOD GAS ORDERAB LES Final Result Performing Organization Address City/[facility]/ZIP Co de Phone Number [facility] [address] [place] [address] * (ABNORMAL) BUN (01/23/2011 9:32 EDT) BUN 9(L) 10 - 26 mg/dl [facility] Blood specimen (specimen) 01/23/2011 9:32 EDT 01/23/2011 9:46 EDT Edgar Donohue MD CHEMISTRY & BLOOD GAS ORDERAB LES Final Result Performing Organization Address [facility] de Phone Number [facility] [address] [place] [address] * ELECTROLYTES (01/23/2011 9:32 EDT) Sodium 140 136 - 145 mEq/L [facility] Potassium 4.1 3.5 - 5.0 mEq/L [facility] Chloride 106 96 - 110 mEq/L [facility] CO2 27 24 - 32 mEq/L [facility] Blood specimen (specimen) 01/23/2011 9:32 EDT 01/23/2011 9:46 EDT Edgar Donohue MD CHEMISTRY & BLOOD GAS ORDERAB LES Final Result Performing Organization Address [facility] Phone Number [facility] [address] [place] [address] * (ABNORMAL) SCREENING GLUCOSE (01/23/2011 9:32 EDT) Glucose, Screening 104(H) 70 - 100 mg/dl [facility] Blood specimen (specimen) 01/23/2011 9:32 EDT 01/23/2011 9:46 EDT Edgar Donohue MD CHEMISTRY & BLOOD GAS ORDERAB LES Final Result Performing Organization Address [facility] Phone Number [facility] [address] [place] [address] documented in this encounter Visit Diagnoses Diagnosis Fatigue Other malaise and fatigue documented in this encounter Orders Nursing Count Last Ordered Date First Orde red Date INSERT PERIPHERAL IV 1 01/23/2011 PULSE OXIMETRY 1 01/23/2011 documented in this encounter Care Teams Info Analyst Relationship Specialty Start Date End Date Tiffanie Strickland MD [address] [place] [id number] PCP - General 10/15/10 10/01/14 documented as of this encounter
--- OUTSIDE RECORDS SUMMARY | 2024-08-03 10:41 | XMS_ITS | Encounter Summary ---
Author Organization [facility] Address [address] [place] [address] Care Team Providers Care Retail Customer Service Specialist Name Role Phone Tiffanie Strickland MD Primary Care Provider [phone] Encounter Details Date Type Department Care Team (Late st Contact Info) Description 05/18/2012 Results Only Imaging [facility] [address] [place] [address] Chaz Baca MD [address] [place] [address] [place] [phone] Social History Tobacco Use Types Packs/Day Years [...] documented in this encounter Plan of Treatment Pending Results Name Type Priority Associated Diagnoses Date /Time OUTSIDE IMAGES - CT NEURO Imaging 05/18/2012 11:28 EDT documented as of this encounter Visit Diagnoses Not on filedocumented in this encounter Care Teams Retail Customer Service Specialist Relationship Specialty Start Date End Date Tiffanie Strickland MD [address] [place] [address] PCP - General 10/15/10 10/01/14 documented as of this encounter
--- OUTSIDE RECORDS SUMMARY | 2024-08-03 10:41 | XMS_ITS | Encounter Summary ---
Author Organization [facility] Address [address] [place] [address] Care Team Providers Care Proc Tech Name Role Phone Tiffanie Strickland MD Primary Care Provider Reason for Visit * Reason Comments Post-OP Follow Up Encounter Details Date Type Department Care Team (Late st Contact Info) Description 08/17/2012 16:00 EST Office Visit [facility] ENT- [address] [id number] Pelon Mckay MD [address] [facility], [address] [place] [address] CHL (conductive hearing loss) (Primary Dx); Cholesteatoma of middle ear and mastoid Social History Tobacco Use Types Packs/Day Years [...] Progress Notes * Pelon Mckay MD - 08/17/2012 1659 EST During this office visit, I saw Doug Smith with our resident, Dr. Ronald Carlisle. For full documentation, please see his note from this visit which I have edited and signed or, for a complete record of this visit, click on office visit under the encounters tab which lists me as the provider for this date. Thank You, PELON MCKAY MD * Ronald Carlisle MD - 08/17/2012 1619 EST [facility] Note CC: Right CHL S: Mr Smith has done well after surgery with minimal pain. In review we discussed that at the timeof middle ear exploration there was significant granulation tissue and cholesteatoma in the middle ear and due to the generalized inflammation the decision was made to place a good t tube treat with steroid drops and antibiotics. He has noted that he ear has been itchy since surgery, the wick has remained in place. O: NAD Breathing comfortably Wick removed Suraj T in place and patent. TM continues to be thickened, but singificantly improved since surgery Continued thick clear drainage from PET A/P 47 year old male who presents 2 week after tympanoplasty mastoidectomy Wick removed, sutures out. Continue drops F/U in 1 month Once the inflammation has settled down will plan reexploration and removal of cholesteatoma RONALD CARLISLE MD Attending statement: I have personally interviewed, examined and discussed Doug Smith with Dr. Ronald Carlisle during today's visit. I have reviewed and edited his notes and concur. 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
--- OUTSIDE RECORDS SUMMARY | 2024-08-03 10:41 | XMS_ITS | Encounter Summary ---
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.33) Procedures HEARING EVALUATION Pelon Mckay MD Phone: tel: fax: Referral ID Status Reason Start Date Expiration Date Visits Re quested Visits Authorized [id number] Closed 11/19/2014 1 1 Reason for Visit * Reason Comments Follow-up Encounter Details Date Type Department Care Team (Late st Contact Info) Description 11/19/2014 13:00 EDT Office Visit [facility] ENT - [address] [address] Pelon Mckay MD [address] [place] [address] [address] [place] [address] 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 Follow-up HISTORY OF PRESENT ILLNESS: Doug Smith is a 49 y.o. year old male who comes in today about 6 weeks after right exploratorytympanotomy, tympanoplasty, and ossiculoplasty. He is doing very well and has had no pain or drainage from the right ear. He thinks his hearing is improved. Department of Otolaryngology PHYSICAL EXAMINATION CONSTITUTIONAL: APPEARANCE: [...] auditory canal: not examined Right tympanic membrane: intact and normally mobile without retraction, perforation or effusion, You can see the impression of the In the posterior superior quadrant. Left tympanic membrane: not examined WHISPER/TUNING FORK: Hearing subjectively normal AUDIOGRAM: I have reviewed the audiogram performed today by our audiology staff on Doug Smith and it demonstrates: On the right, there is a severe high-frequency mixed hearing loss but the conductive component has resolved through 2K. On the left, there is a moderately severe high-frequency mixed hearing loss ASSESMENT: Encounter Diagnoses Name Primary? 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 His hearing is improved. All seem back in 6 months. I think it is okay to get water in that ear now. PLAN: Doug was seen today for follow-up. 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 Pelon Mckay MD documented in this encounter Plan of Treatment Scheduled Orders Name Type Priority Associated Diagnoses Orde r Schedule HEARING EVALUATION Audiology Routine Cholesteatoma of middle ear and mastoid(385.33) Ordered: 11/19/2014 documented as of this encounter Procedures Procedure Name Priority Date/Time Associated Diagnosis Comments PROCEDURE REPORTS - SCANNED 11/26/2014 13:54 EDT documented in this encounter Results * PROCEDURE REPORTS - SCANNED (11/26/2014 13:54 EDT) 11/26/2014 13:5 4 EDT us Scan 2 Biology Laboratory Assistant PROCEDURE/MINOR SURGICAL OR DERABLES Final Result documented in this encounter Visit Diagnoses Diagnosis 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
--- OUTSIDE RECORDS SUMMARY | 2024-08-03 10:41 | XMS_ITS | Encounter Summary ---
Author Organization [facility] Address [address] [place] [address] Care Team Providers Care Brand Marketing Intern Name Role Phone None, Provider Primary Care Provider Unavailabl e Encounter Details Date Type Department Care Team (Late st Contact Info) Description 10/05/2014 7:38 EST - 10/05/2014 14:15 EST Hospital Encounter [facility] Perioperative Services- [address] [address] Pelon Mckay MD [address] [place] [address], [address] 4 [place] [address] Discharge Disposition: Home or Self [...] Sign Reading Time Taken Comments Blood Pressure 108/60 10/05/2014 1345 EST Pulse - - Temperature 36.3 ??C (97.3 ??F) 10/05/2014 1345 EST Respiratory Rate 15 10/05/2014 1345 EST Oxygen Saturation 95% 10/05/2014 1345 EST Inhaled Oxygen Concentration - - Weight 107.5 kg (237 lb) 09/24/2014 1008 EST Height 177.8 cm (5' 10) 09/24/2014 1008 EST Body Mass Index 34.01 09/24/2014 1008 EST documented in this encounter Mental Status * Because of a physical, mental, or emotional condition, do you have serious difficulty concentrating, remembering, or making decisions? (5 years old or older) Answer Entry Date Author Yes 11/04/2010 14:40 EDT Barbara Johns RN documented in this encounter Medications at Time of Discharge citalopram (CELEXA) 40 mg tablet Take 40 mg by mouth daily. ERGOCALCIFEROL, VITAMIN D2, (VITAMIN D ORAL) Take by mouth. fluticasone (FLOVENT) 220 mcg/actuation inhaler Inhale 220 mcg as directed daily risperiDONE (RISPERDAL) 1 mg tablet Take 1 mg by mouth 4 times daily as needed. TEMAZEPAM ORAL Take 15 mg by mouth at bedtime. TRAZODONE HCL (TRAZODONE ORAL) Take 75 mg by mouth at bedtime. cephALEXin (KEFLEX) 500 mg capsule Take 1 Cap by mouth 3 times daily for 10 days 30 Cap 0 10/05/2014 5 ondansetron (ZOFRAN-ODT) 4 mg disintegrating tablet Take 1 Tab by mouth every 8 hours as needed for Nausea 8 Tab 0 10/05/2014 5 oxyCODONE (ROXICODONE) 5 mg immediate release tablet Take 1-2 Tabs by mouth every 4 hours as needed for Pain Daily Max: 60 mg 30 Tab 0 10/05/2014 5 documented as of this encounter Ordered Prescriptions Prescription Sig Dispense Quantity Refills Last Filled Start Date End Date cephALEXin (KEFLEX) 500 mg capsule Take 1 Cap by mouth 3 times daily for 10 days 30 Cap 0 10/05/2014 5 ondansetron (ZOFRAN-ODT) 4 mg disintegrating tablet Take 1 Tab by mouth every 8 hours as needed for Nausea 8 Tab 0 10/05/2014 5 oxyCODONE (ROXICODONE) 5 mg immediate release tablet Take 1-2 Tabs by mouth every 4 hours as needed for Pain Daily Max: 60 mg 30 Tab 0 10/05/2014 5 documented in this encounter Discharge Disposition Disposition Code Departure Means Destination Home or Self Care documented in this encounter Progress Notes * Tiffany West RN - 09/24/2014 1007 EST Doug Smith has been instructed as follows regarding medication administration for the day of the scheduled procedure. Date of Surgery: 10/05/14 Instructions for Taking Medications Day of Surgery Medication Last Dose Hold DOS Take DOS citalopram (CELEXA) 40 mg tablet Yes ERGOCALCIFEROL, VITAMIN D2, (VITAMIN D ORAL) 09/28/14 yes risperiDONE (RISPERDAL) 1 mg tablet Yes TEMAZEPAM ORAL Yes TRAZODONE HCL (TRAZODONE ORAL) Yes Will avoid aspirin/nsaids one week preop, is aware po tylenol prn is ok , preop documented in this encounter H&P Notes * Pelon Mckay MD - 10/05/2014 0843 EST I have reviewed Doug Smith's history and physical and agree. His preoperative history and physical, which was performed within 30 days of this procedure, has been reviewed and the clinically appropriate elements of the physical examination have been repeated. There are no changes to the documented history and physical or if so such changes are documented below. Please see my outpatient notes. PELON MCKAY MD Source Note - HEATING SYSTEMS INSTALLER, SCAN 2 - 10/01/2014 13:01 EST documented in this encounter OR Notes * OR Surgeon - Pelon Mckay MD - 10/05/2014 1417 EST OPERATIVE REPORT SERVICE DATE: 10/05/2014 SURGEON: Pelon Mckay MD CUSTOMER SERVICE RECEPTIONIST: Cassandra Dubon MD PREOPERATIVE DIAGNOSIS: Right cholesteatoma, tympanic membrane perforation and conductive hearing loss. POSTOPERATIVE DIAGNOSIS: Right cholesteatoma, tympanic membrane perforation and conductive hearing loss. PROCEDURE: Revision right tympanoplasty and ossicular chain reconstruction. ANESTHESIA: General endotracheal. FINDINGS: There was well encapsulated recurrent cholesteatoma located just inferior to the the cochleariform process there was a 3 mm anterior inferior tympanic membrane perforation, the malleus, incus and chorda tympani nerve were absent from prior surgery and the stapes footplate was found to be mobile. INDICATIONS: This is a 49-year-old male with a history of right chronic otitis media and cholesteatoma. He previously underwent right tympanoplasty with mastoidectomy on 11/16/2012. He failed to present for second stage surgery. He returned with recurrent hearing loss. An exam in the clinic showed a 20% inferior anterior perforation and stapediopexy. NARRATIVE: The patient was identified in the preoperative hold area where the surgical site was marked. He was transferred to the operating table where a WHO pichardo moment was held with the patient awake. General anesthesia was induced using an endotracheal tube. The patient was then rotated 90 degrees away from anesthesia. Four mL of 1% lidocaine was injected postauricularly. The right ear was then prepped and draped in the normal sterile fashion. The right ear canal was visualized using a speculum and the ear canal was irrigated and suctioned. A total of 1 mL of 1% lidocaine with 1:100,000 epinephrine was then infiltrated along the ear canal. There was an approximately 3 mm anterior inferior tympanic membrane perforation. Next, ear canal incisions were made at 6 o'clock and 12 o'clock position. A lateral incision was made and the Bhakti flap was back elevated. Next, a postauricular incision was made and the ear was turned forward in the usual fashion. A T-shaped incision was made in the periosteum down to the mastoid periosteum and anterior canal. The ear was turned forward. The Bhakti flap vascular strip was identified and was freed. A small piece of temporalis fascia was harvested and set aside on a cutting block. A tympanomeatal flap was then elevated down to the annulus.The middle ear was entered inferiorly and the annulus was elevated. The chorda tympani nerve was absent from prior surgery. The malleus and incus were absent, also from prior surgery. The stapes was i dentified. There was a thick amount of inflammatory mucosa in the middle ear space. As the tympanomeatal flap was raised anteriorly, there was recidivistic cholesteatoma in the anterior epitympanum at the location of the cochlear foreign process and tensor tympani tendon. The cholesteatoma was removed in its entirety. There was no other cholesteatoma identified. The edges of the perf were freshened using a microtab. The anterior epitympanum was packed with dried pressed Gelfoam and the fascia graft was then placed into position. A Kaufman cap prosthesis was placed over the capitulum of the stapes, which made good contact with the overlying tympanic membrane. More Gelfoam was then packed in themiddle ear to support the graft. The tympanomeatal flap was then redraped over the annulus and canal. A kletsel dehe wintun packing was placed using Hoffman gauze soaked in Cortisporin and a cotton ball soaked in Cortisporin. The ear was then turned posteriorly. The periosteum was reapproximated with a 3-0 Monocryl. The postauricular incision was closed with 4-0 nylon horizontal mattress sutures. The ear canalwas then visualized using a Lempert speculum. The Bhakti flap was then unfurled using a reverse microtab and laid over the bony canal. A Xeroform gauze coated with bacitracin was then placed in the ear canal and a cotton ball coated in bacitracin was placed in the external auditory meatus. A standard mastoid dressing was applied. This marked the end of the procedure and the patient was then awakened from general anesthesia and was transferred to PACU in good stable condition. Dr Pelon Mckay was present and actively participated in the care of the patient. FLUIDS: 1200 mL of lactated Ringer's. URINE OUTPUT: Not recorded. ESTIMATED BLOOD LOSS: 15 mL. RETAINED MATERIALS: Kaufman cap prosthesis by [facility], reference number [id number] and lot number [id number]. SPECIMENS: None. COMPLICATIONS: None. CONDITION: Stable. DISPOSITION: To PACU. Unless otherwise noted, there were no complications, no blood loss, no cultures obtained, no specimens removed, and no drains retained. Pelon Mckay MD 12 32 PM / Cassandra Dubon MD cn Confirmation: [id number] Dictation ID: [id number] cc: Cassandra Mckay MD documented in this encounter Miscellaneous Notes * Anesthesia Post-Eval - Santy De - 10/05/2014 1428 EST Post Anesthesia Evaluation Note Date of Service: 10/05/2014 Doug Smith, a 49 y.o. year old male has received General Anesthesia today. He has been evaluated, assessed and discharged from anesthesia care with stable cardiorespiratory function and easily arousable mental status. The last set of recorded vital signs and pain rating were reviewed: Temp: 35.7 ??C (96.3 ??F) (10/05/14 1243), Heart Rate: 67 BPM (10/05/14 1345), BP: 108/60 mmHg (10/05/14 1345), Resp: 15 (10/05/14 1345), SpO2: 94 % (10/05/14 1345),Numeric Pain Level (Scale 1-10): 0 Doug Smith participated in this evaluation unless otherwise noted. His pain, nausea and vomiting have been managed and his body temperature and fluid balance have been restored. Additional monitoring and assessment needs have been addressed. If present, any postoperative events are documented below. Santy De MD 10/05/2014 14:28 * Brief Op Note - Cassandra Dubon MD - 10/05/2014 0927 EST Otolaryngology, Head and Neck Surgery Brief Operative Note Surgeon : Pelon Mckay MD Tint Layer : Cassandra uDbon MD Preoperative Diagnosis : Right cholesteatoma, Tympanic membrane perforation, CHL Postoperative Diagnosis:same Procedure : Revision right tympanoplasty, ossicular chain reconstruction Anesthesia :General Endotracheal Findings : Recurrent cholesteatoma anterior epitympanum at the cochleariform process and tensor tymani tendon 3mm anterior inferior tympanic membrane prosthesis Malleus, incus, and chorda tympani nerve absent from prior surgery Stapes footplate mobile Fluids : IVF - 1200 cc lactated ringer's solution Urine Output -Not Recorded EBL - 15 cc Retained Material / Drains : Kaufman cap prosthesis ([employer] Ref [id number], Lot [id number]) Specimen(s) : none Complications :none Condition :stable Disposition : to PACU Patient Active Problem List Diagnosis ??? Major depressive disorder ??? Suicidal ideation ??? Conductive hearing loss in right ear Cassandra Dubon MD documented in this encounter Plan of Treatment Not on file documented as of this encounter Procedures Procedure Name Priority Date/Time Associated Diagnosis Comments IMPLANT RECORD - SCANNED 10/10/2014 11:34 EST ECG REPORT - SCANNED 10/10/2014 11:34 EST IMPLANT RECORD - SCANNED 10/10/2014 11:34 EST documented in this encounter Results * IMPLANT RECORD - SCANNED (10/10/2014 11:34 EST) 10/10/2014 11:3 4 EST us Scan 2 Certified Pediatric Nurse Practitioner PROCEDURE/MINOR SURGICAL OR DERABLES Final Result * ECG REPORT - SCANNED (10/10/2014 11:34 EST) 10/10/2014 11:3 4 EST us Scan 2 Certified Pediatric Nurse Practitioner PROCEDURE/MINOR SURGICAL OR DERABLES Final Result * IMPLANT RECORD - SCANNED (10/10/2014 11:34 EST) 10/10/2014 11:3 4 EST us Scan 2 Certified Pediatric Nurse Practitioner PROCEDURE/MINOR SURGICAL OR DERABLES Final Result documented in this encounter Visit Diagnoses Not on filedocumented in this encounter Administered Medications Inactive Administered Medications - up to 3 most recent administrations Medication Order MAR Action Action Date Dose Rate Site ceFAZolin (ANCEF) syringe 1 g 1 g, intravenous, Administer over 10 Minutes, PRE-OP ONCE, 1 dose, On Wed10/05/14 at 1045, Routine Given by Other 10/05/2014 9:49 EST 1 g IV lactated ringers (LR) infusion at 25 mL/hr, intravenous, CONTINUOUS, Starting on Wed10/05/14 at 0900, Until Wed10/05/14 at 1655, Routine, Pre Op Day of Surgery New Bag 10/05/2014 8:36 EST 25 mL/hr documented in this encounter Discontinued Medications Medication Sig Discontinue Reason Start Date End Da te trazodone (DESYREL) 150 mg tablet Take 150 mg by mouth at bedtime. Patient Stopped Taking 09/24/2014 documented as of this encounter Historical Medications * This list may reflect changes made after this encounter. fluticasone (FLOVENT) 220 mcg/actuation inhaler Inhale 220 mcg as directed daily TRAZODONE HCL (TRAZODONE ORAL) Take 75 mg by mouth at bedtime. added in this encounter Active and Recently Administered Medications Times are shown in EST. Scheduled Medication Order 10/03/2014 10/04/2014 10/05/2014 ceFAZolin (ANCEF) syringe 1 g (COMPLETED) 1 g, intravenous, Administer over 10 Minutes, PRE-OP ONCE, 1 dose, On Wed10/05/14 at 1045, Routine 0949 (Given by Other - Provider: Zahra Solo RN - Comment: Given BY Anesthesia MD) Continuous Medication Order 10/03/2014 10/04/2014 10/05/2014 lactated ringers (LR) infusion (CANCELED) at 25 mL/hr, intravenous, CONTINUOUS, Starting on Wed10/05/14 at 0900, Until Wed10/05/14 at 1655, Routine, Pre Op Day of Surgery 0836 (New Bag - Prov ider: Kathy Stevens RN) documented in this encounter Orders Medications Ordered That Ulysses ht Not Have Been Administered Count Last Ordered Date First Ordered Date atropine 0.1 mg/mL syringe 0.5 mg 1 015 diphenhydrAMINE (BENADRYL) i njection 6.25 mg 1 10/05/2014 fentaNYL citrate (PF) 50 mcg /mL injection 25-100 mcg 1 10/05/2014 lactated ringers (LR) infusion 1 10/05/2014 nalOXone (NARCAN) injection 0.2 mg 1 2014 ondansetron (PF) (ZOFRAN) injection 4 mg 1 10/05/2014 oxyCODONE (ROXICODONE) immed iate release tablet 5-10 mg 1 10/05/2014 Nursing Count Last Ordered Date First Orde red Date ACTIVITY INSTRUCTIONS 1 10/05/2014 BATHING INSTRUCTIONS 1 10/05/2014 Transfer Count Last Ordered Date First Orde red Date NOTIFY PPS PACU PATIENT DISCHARGE 1 015 NOTIFY PPS PATIENT ARRIVAL IN PACU 1 2014 Discharge Count Last Ordered Date First Orde red Date DISCHARGE PATIENT 1 10/05/2014 Legal Count Last Ordered Date First Orde red Date MISCELLANEOUS DISCHARGE INSTRUCTIONS 4 09/23 documented in this encounter Care Teams Brand Marketing Intern Relationship Specialty Start Date End Date None, Provider PCP - General 10/02/14 documented as of this encounter
--- OUTSIDE RECORDS SUMMARY | 2024-08-03 10:41 | XMS_ITS | Encounter Summary ---
Author Organization [facility] Address [address] [place] [address] Care Team Providers Care Integrated Marketing Intern Name Role Phone Tiffanie Strickland MD Primary Care Provider [phone] Reason for Visit * Reason Comments Follow-up rt ear Encounter Details Date Type Department Care Team (Late st Contact Info) Description 06/29/2012 11:30 EST Office Visit [facility] ENT - [address] [address] Unknown, Provider, Smooth Olivarez MD [address] [facility] [address] [place] [address] Conductive hearing loss in right [...] Progress Notes * Smooth Pinzon MD - 06/29/2012 1148 EST Followup right chronic otitis. SUBJECTIVE: The patient continues to complain of right ear fullness, plugging and hearing loss. OBJECTIVE: Binocular otomicroscopy was performed and this again reveals abnormal appearance to the right ear with a thickness and fullness of the tissue, no normal anatomy or architecture, ossicles are not seen. No significant benefit with steroid injection. IMPRESSION: Right chronic ear. PLAN: Will obtain a second opinion with Dr Mckay regarding approach to the right ear to resolve the hearing loss issue. documented in this encounter Plan of Treatment Not on file documented as of this encounter Visit Diagnoses Diagnosis Conductive hearing loss in right ear- Primary Conductive hearing loss, unilateral documented in this encounter Care Teams Integrated Marketing Intern Relationship Specialty Start Date End Date Tiffanie Strickland MD [address] [place] [id number] PCP - General 10/15/10 10/01/14 documented as of this encounter
--- OUTSIDE RECORDS SUMMARY | 2024-08-03 10:41 | XMS_ITS | Referral Summary ---
Author Organization [facility] Address [address] [place] [address] Care Team Providers Care Cloth Washer Back Tender Name Role Phone None, Provider Primary Care Provider Unavailabl e Allergies No known active allergies Medications citalopram (CELEXA) 40 mg tablet Take 40 mg by mouth daily. Active ERGOCALCIFEROL, VITAMIN D2, (VITAMIN D ORAL) Take by mouth. Active TEMAZEPAM ORAL Take 15 mg by mouth at bedtime. Active risperiDONE (RISPERDAL) 1 mg tablet Take 1 mg by mouth 4 times daily as needed. Active TRAZODONE HCL (TRAZODONE ORAL) Take 75 mg by mouth at bedtime. Active fluticasone (FLOVENT) 220 mcg/actuation inhaler Inhale 220 mcg as directed daily Active Active Problems Problem Noted Date Diagnosed Date Conductive hearing loss in right ear 03/22/2012 Suicidal ideation 10/09/2010 Major depressive disorder 01/10/2010 Resolved Problems Problem Noted Date Diagnosed Date Resolved Date Otitis externa 02/27/2010 10/09/2010 Acute ear infection 02/19/2010 02/26/20 10 Suicidal ideation 12/30/2009 01/10/2010 Outbursts of anger 12/23/2009 0 Social History Tobacco Use Types Packs/Day Years [...] file Not on file Not on file Last Filed Vital Signs Vital Sign Reading Time Taken Comments Blood Pressure 108/60 10/05/2014 1345 EST Pulse 58 03/22/2012 1014 EDT Temperature 36.3 ??C (97.3 ??F) 10/05/2014 1345 EST Respiratory Rate 15 10/05/2014 1345 EST Oxygen Saturation 95% 10/05/2014 1345 EST Inhaled Oxygen Concentration - - Weight 107.5 kg (237 lb) 09/24/2014 1008 EST Height 177.8 cm (5' 10) 09/24/2014 1008 EST Body Mass Index 34.01 09/24/2014 1008 EST Mental Status * Because of a physical, mental, or emotional condition, do you have serious difficulty concentrating, remembering, or making decisions? (5 years old or older) Answer Entry Date Author Yes 11/04/2010 14:40 EDT Barbara Johns RN Plan of Treatment Not on file Insurance MEDICARE [employer] [place] Advance Directives For more information, please contact: [phone] * Full Code (Latest Code Status on File) Date Activated Date Inactivated Comments 11/04/2010 13:59 11/24/2010 18:24 * Full Code Date Activated Date Inactivated Comments 10/09/2010 0:25 10/21/2010 13:43 * Full Code Date Activated Date Inactivated Comments 02/15/2010 23:08 03/07/2010 12:17 * Full Code Date Activated Date Inactivated Comments 12/23/2009 2:32 01/10/2010 11:38 Care Teams Cloth Washer Back Tender Relationship Specialty Start Date End Date None, Provider PCP - General 10/02/14
--- OUTSIDE RECORDS SUMMARY | 2024-08-03 10:41 | XMS_ITS | Encounter Summary ---
Author Organization [facility] Address [address] [place] [address] Care Team Providers Care Otr Refrigerated Cdl Truck Driver Name Role Phone Tiffanie Strickland MD Primary Care Provider Encounter Details Date Type Department Care Team (Late st Contact Info) Description 11/16/2012 6:11 EDT - 11/16/2012 14:11 EDT Hospital Encounter [facility] Perioperative Services- [address] [address] Pelon Mckay MD [address] [facility], [address] 4 [place] [address] Discharge Disposition: Home or Self [...] Sign Reading Time Taken Comments Blood Pressure 125/74 11/16/2012 1332 EDT Pulse - - Temperature 36.5 ??C (97.7 ??F) 11/16/2012 1332 EDT Respiratory Rate 20 11/16/2012 1332 EDT Oxygen Saturation 94% 11/16/2012 1332 EDT Inhaled Oxygen Concentration - - Weight 110.2 kg (243 lb) 11/07/2012 1121 EDT Height 177.8 cm (5' 10) 11/07/2012 1121 EDT Body Mass Index 34.87 11/07/2012 1121 EDT documented in this encounter Mental Status * Because of a physical, mental, or emotional condition, do you have serious difficulty concentrating, remembering, or making decisions? (5 years old or older) Answer Entry Date Author Yes 11/04/2010 14:40 EDT Barbara Johns RN documented in this encounter Discharge Instructions * Discharge Instructions* Everardo Carlisle MD - 11/16/2012 7:06 EDT Post-Operative Instructions for Tympanoplasty Surgery 1. After [...] appointment or reach the clinic, please call [phone]. If you need to reach the office due to a post surgical urgent issue, please call [phone]. documented in this encounter Medications at Time of Discharge citalopram (CELEXA) 40 mg tablet Take 40 mg by mouth daily. ERGOCALCIFEROL, VITAMIN D2, (VITAMIN D ORAL) Take by mouth. risperiDONE (RISPERDAL) 1 mg tablet Take 1 mg by mouth 4 times daily as needed. TEMAZEPAM ORAL Take 15 mg by mouth at bedtime. cephALEXin (KEFLEX) 500 mg capsule Take 1 Cap by mouth 3 times daily for 7 days. 21 Cap 0 11/16/2012 11/23/2012 HYDROcodone-aceta minophen (LORTAB) 5-500 mg tablet Take 1 Tab by mouth every 4 hours as needed for Pain. 25 Tab 0 11/16/2012 01/23/2013 trazodone (DESYREL) 150 mg tablet Take 150 mg by mouth at bedtime. 09/24/2014 documented as of this encounter Ordered Prescriptions Prescription Sig Dispense Quantity Refills Last Filled Start Date End Date cephALEXin (KEFLEX) 500 mg capsule Take 1 Cap by mouth 3 times daily for 7 days. 21 Cap 0 11/16/2012 11/23/2012 HYDROcodone-acetam inophen (LORTAB) 5-500 mg tablet Take 1 Tab by mouth every 4 hours as needed for Pain. 25 Tab 0 11/16/2012 01/23/2013 documented in this encounter Discharge Disposition Disposition Code Departure Means Destination Home or Self Care documented in this encounter Progress Notes * FOOD AND BEVERAGE LEAD, SCAN 2 - 11/21/2012 1451 EDT * Kathy Pearson CNM - 11/16/2012 1333 EDT 1332-pt admitted to [facility] bed # 29 for continued care-report of pt sleepy-upon arrival pt awake-pain reports 10/30 in ear Pt voided 600 cc 1345-discharge instructions given to pt 1400-iv dc'd 1404-pt discharged home * Anne Templeton RN - 11/07/2012 1131 EDT Doug Smith has been instructed as follows regarding medication administration for the day of the scheduled procedure. Date of Surgery: 11/16/12 Instructions for Taking Medications Day of Surgery Medication Last Dose Hold DOS Take DOS risperiDONE (RISPERDAL) 1 mg tablet yes citalopram (CELEXA) 40 mg tablet yes ERGOCALCIFEROL, VITAMIN D2, (VITAMIN D ORAL) yes trazodone (DESYREL) 150 mg tablet @hs TEMAZEPAM ORAL @hs Other medication instructions: Stop NSAIDS and Aspirin products 10 days prior to surgery and Stop supplements 7 days prior to surgery documented in this encounter H&P Notes * FOOD AND BEVERAGE LEAD, SCAN 2 - 11/21/2012 1451 EDT * Everardo Carlisle MD - 11/16/2012 0656 EDT The preoperative history and physical which was performed within 30 days of this procedure has been reviewed and the clinically appropriate elements of the physical examination have been repeated. There are no changes to the documented history and physical or if so such changes are documented below EVERARDO CARLISLE MD 11/16/2012 6:56 Cosigned by Pelon Mckay MD at 11/16/2012 7:06 EDT documented in this encounter Procedure Notes * FOOD AND BEVERAGE LEAD, SCAN 2 - 11/21/2012 1451 EDTAssociated Order(s): ORDERS - SCANNED * FOOD AND BEVERAGE LEAD, SCAN 2 - 11/21/2012 1451 EDTAssociated Order(s): ECG REPORT - SCANNED documented in this encounter Nursing Notes * FOOD AND BEVERAGE LEAD, SCAN 2 - 11/21/2012 1452 EDT documented in this encounter OR Notes * OR PreOp - FOOD AND BEVERAGE LEAD, SCAN 2 - 11/21/2012 1451 EDT * OR Surgeon - Everardo Carlisle MD - 11/17/2012 1516 EDT OPERATIVE REPORT SERVICE DATE: 11/16/2012 SURGEON: Pelon Mckay MD TAX COMPLIANCE REPRESENTATIVE: Everardo Carlisle MD PREOPERATIVE DIAGNOSIS: Right chronic otitis media and cholesteatoma. POSTOPERATIVE DIAGNOSIS: Right chronic otitis media and cholesteatoma. PROCEDURE: Right tympanoplasty, mastoidectomy, and removal of Suraj-T pressure equalization tube. FINDINGS: Cholesteatoma abutting the stapes superstructure, incus and manubrium extending anterior and superior to the cochliaform process and extending to the protympanum and into the anterior hypotympanum. This required removal of both the malleus and the incus for access to the extensive middle ear cholesteatoma. This did not enter into the mastoid. The stapes was left intact. The chorda tympani was sacrificed. NARRATIVE: The patient was identified in preop hold where all pertinent questions were answered. The patient was brought back to the operating room where a pichardo moment was assured. The patient was placed in supine position and adequate anesthesia was administered. The bed was rotated 90 degrees away from anesthesia. The right ear was prepped and draped in the usual fashion for otologic surgery.Under microscopic guidance, the right external auditory canal was visualized and irrigated out. TheGoode T-tube was removed. Thereafter, local anesthetic was infiltrated postauricular as well as into the ear canals. The ear canal incisions were made at 6 and 12 o'clock as well as several millimeters lateral to the tympanic membrane. A posterior flap was elevated. Thereafter, a postauricular incision was made and this was taken down to the mastoid periosteum where incisions made in a T-shaped fashion. The heavy periosteal elevator was used to elevate the periosteum towards the ear canal as well as posteriorly and superiorly. The spine of Jose Carlos was identified and the external auditory canalwas further elevated until the posterior external auditory canal flap was freed and this was elevated and retracted using a two-pronged Weitlaner. Thereafter, again under microscopic guidance, a tympanomeatal flap was elevated. The chorda tympani nerve was identified and appeared to be involved in the cholesteatoma and this was sacrificed using Bellucci scissors. Prior to this, the middle ear wasentered inferiorly. The annulus was preserved here and cholesteatoma was easily visualized involving all the ossicles. At this point, due to the significant extent of the cholesteatoma involvement with the ossicles, the decision was made to proceed with removing the incus as well as the malleus. The incudostapedial joint was and the incus removed. The tensor tendon was lysed and the malleus was also removed. At this point, the decision was made to perform a mastoidectomy since the preoperative imaging demonstrated that the mastoid was completely opacified. The mastoid cavity was drilled out using 6, 4, and 2 cutting as well as a 3 coarse billy brittney. The superior extent of the drilling was the tegmen, the anterior extent was the [id number], posteriorly was the sigmoid as well as the sigmoid sinus. The posterior canal wall remained intact. The mastoidectomy was identified anterior superiorly and the drilling continued superiorly over the external auditory canal. The horizontal semicircular canal was identified and preserved. There was no evidence of cholesteatoma within the mastoid. There was good flow of irrigant from the middle ear to the mastoid. The procedure then continued with the further debridement of the cholesteatoma and this was done through the tympano meatal flap approach. The cholesteatoma was elevated off the stapes. It appeared that the anterior linette of the stapes was partially eroded, but the stapes still appeared to be stable. The cholesteatoma continued to be elevated anteriorly into the anterior epitympanum, and with great care, the cholesteatoma was elevated from this area. This was all anterior to the cochlear foreign process, in the area of the eustachian tube as well as in the anterior hypotympanum. There was difficult access in this area and all cholesteatoma which was visualized was removed from this area. There was difficult visualization here due to the angle of the external auditory canal and the overhang in the anterior canal wall. At this point, there was no evidence of any further cholesteatoma in the middle ear. In the superior portion of the postauricular incision, temporalis fascia was harvested and this was flattened using a fascia press and then set to dry on the back table. Once it was dry, the middle ear was packed with Cortisporin-soaked Gelfoam and the temporalis fascia graft was placed to cover the pressure equalization tube defect as well as the incision into the tympanic membrane which was made for increased anterior middle ear access. The external auditory canal was further packed with a hopland dressing with Hoffman gauze and Cortisporin-soaked cotton. The mastoid periosteum was closed using fo ur interrupted Monocryl sutures, and with great care, the posterior external auditory canal flap was replaced and great care was made to ensure that it was not entering into the mastoid and that it was properly draped out and the external auditory canal was further packed with Xeroform. The postauricular incision was closed with four horizontal mattress nylon sutures as well as one interrupted nylon suture. The patient was dressed with a mastoid dressing and the patient tolerated the procedure well and went to the postanesthesia care unit for recovery. Throughout procedure, the [facility] facial nerve monitoring system was in place and appeared to be functioning well. Dr Pelon Mckay was presen t and actively participated in the care of this patient. ESTIMATED BLOOD LOSS: 50 mL. FLUIDS: 800 mL of lactated Ringers. URINE OUTPUT: Not recorded. SPECIMENS: None. CULTURES: None. DRAINS, PACKS AND FOREIGN MATERIALS RETAINED: Gelfoam in the middle ear and mastoid and a hopland dressing in the external auditory canal, and Xeroform. COMPLICATIONS: None. CONDITION: Good to PACU. Unless otherwise noted, there were no complications, no blood loss, no cultures obtained, no specimens removed, and no drains retained. Pelon Mckay MD 03 42 PM / Everardo Carlisle MD mt Confirmation: [id number] Dictation ID: [id number] cc: Pelon Mckay MD * Anesthesia Procedure Notes - FOOD AND BEVERAGE LEAD, SCAN - 11/17/2012 0843 EDT * OR PreOp - FOOD AND BEVERAGE LEAD, SCAN - 11/16/2012 1131 EDT * Anesthesia Preprocedure Evaluation - FOOD AND BEVERAGE LEAD, SCAN - 11/16/2012 0740 EDT documented in this encounter Miscellaneous Notes * Scanned Note-Null - FOOD AND BEVERAGE LEAD, SCAN 2 - 11/21/2012 1451 EDT * Scanned Note-Null - FOOD AND BEVERAGE LEAD, SCAN 2 - 11/21/2012 1451 EDT * Brief Op Note - Everardo Carlisle MD - 11/16/2012 0704 EDT Otolaryngology, Head and Neck Surgery Brief Operative Note Surgeon : Pelon Mckay MD Material Reclaimer : EVERARDO CARLISLE MD Preoperative Diagnosis : Right cholesteatoma Postoperative Diagnosis:same Procedure : Right Tympanoplasty/mastoidectomy, removal of right PET Anesthesia :General Endotracheal Findings : 1. Cholesteatoma involving all ossicles requiring removal of malleus and incus Fluids : IVF - 800 cc lactated ringer's solution Urine Output -Not Recorded EBL - 50cc Retained Material / Drains : Gelfoam in middle ear, mastoid. [place] dressing in EAC and xeroform Specimen(s) : None Complications :none Condition :stable Disposition : to PACU Patient Active Problem List Diagnoses ??? Major depressive disorder ??? Suicidal ideation ??? Conductive hearing loss in right ear EVERARDO CARLISLE MD documented in this encounter Plan of Treatment Not on file documented as of this encounter Procedures Procedure Name Priority Date/Time Associated Diagnosis Comments ECG REPORT - SCANNED 11/21/2012 14:51 EDT ORDERS - SCANNED 11/21/2012 14:5 1 EDT documented in this encounter Results * ECG REPORT - SCANNED (11/21/2012 14:51 EDT) 11/21/2012 14:5 1 EDT Narrative 11/21/2012 14:54 EDT Procedure Note FOOD AND BEVERAGE LEAD, SCAN 2 - 11/21/2012 14:51 EDT us Scan 2 Slider Assembler PROCEDURE/MINOR SURGICAL OR DERABLES Final Result * ORDERS - SCANNED (11/21/2012 14:51 EDT) 11/21/2012 14:5 1 EDT Narrative 11/21/2012 14:54 EDT Procedure Note FOOD AND BEVERAGE LEAD, SCAN 2 - 11/21/2012 14:51 EDT us Scan 2 Slider Assembler ADMISSION ORDERABLES Final Result documented in this encounter Visit Diagnoses Not on filedocumented in this encounter Administered Medications Inactive Administered Medications - up to 3 most recent administrations Medication Order MAR Action Action Date Dose Rate Site lactated ringers (LR) infusion at 25 mL/hr, intravenous, CONTINUOUS, Starting on Wed11/16/12 at 0715, Until Wed11/16/12 at 0800, Routine, Pre-Op DOS Rx Approved New Bag 11/16/2012 7:06 EDT 25 mL/hr lactated ringers (LR) infusion at 75 mL/hr, intravenous, CONTINUOUS, Starting on Wed11/16/12 at 1130, Until Wed11/16/12 at 1611, Routine, Recovery (only) Rate Documented 11/16/2012 11:35 EDT 75 mL/hr documented in this encounter Active and Recently Administered Medications Times are shown in EDT. Continuous Medication Order 11/14/2012 11/15/2012 11/16/2012 lactated ringers (LR) infusion (CANCELED) at 25 mL/hr, intravenous, CONTINUOUS, Starting on Wed11/16/12 at 0715, Until Wed11/16/12 at 0800, Routine, Pre-Op DOS Rx Approved 705 (New Bag - Prov ider: Mirta Hollins RN) lactated ringers (LR) infusion (CANCELED) at 75 mL/hr, intravenous, CONTINUOUS, Starting on Wed11/16/12 at 1130, Until Wed11/16/12 at 1611, Routine, Recovery (only) 1135 (Rate Documente d - Provider: Hallie Palacios RN - Comment: 200cc up on admit pacu) documented in this encounter Orders Medications Ordered That Ulysses ht Not Have Been Administered Count Last Ordered Date First Ordered Date acetaminophen (TYLENOL) tablet 325 mg 1 atropine 0.1 mg/mL 10 mL syringe 0.5 mg 1 0 11/16/2012 diphenhydrAMINE (BENADRYL) i njection 6.25 mg 1 11/16/2012 fentaNYL citrate (PF) 50 mcg /mL injection 25-100 mcg 1 11/16/2012 HYDROmorphone (DILAUDID) tablet 2-4 mg 1 lactated ringers (LR) infusion 1 11/16/2012 naloxone (NARCAN) injection 0.2 mg 1 2012 ondansetron (PF) (ZOFRAN) injection 2 mg 1 11/16/2012 oxyCODONE (ROXICODONE) immed iate release tablet 5-10 mg 1 11/16/2012 Transfer Count Last Ordered Date First Orde red Date NOTIFY PPS OF DISCHARGE COMPLETE 1 11/17/19 13 NOTIFY PPS PATIENT ARRIVAL IN PACU 1 2012 Discharge Count Last Ordered Date First Orde red Date DISCHARGE PATIENT 1 11/16/2012 documented in this encounter Care Teams Otr Refrigerated Cdl Truck Driver Relationship Specialty Start Date End Date Tiffanie Strickland MD [address] [place] [id number] PCP - General 10/15/10 10/01/14 documented as of this encounter
--- OUTSIDE RECORDS SUMMARY | 2024-08-03 10:41 | XMS_ITS | Encounter Summary ---
Author Organization [facility] Address [address] [place] [address] Care Team Providers Care Scientific Informatics Analyst Name Role Phone Tiffanie Strcikland MD Primary Care Provider Reason for Visit * Reason Comments Pre-op Exam Encounter Details Date Type Department Care Team (Late st Contact Info) Description 07/28/2012 15:45 EST Office Visit [facility] ENT- [address] [id number] Pelon Mckay MD 111 [facility], [address] 4 [place] [address] Chronic serous OM (otitis media) (Primary Dx); Conductive hearing loss, middle ear Social History Tobacco Use Types [...] Progress Notes * Pelon Mckay MD - 08/01/2012 1131 EST Progress Note Division of Otolaryngology, Head and Neck Surgery Date of Service: 07/28/2012 Provider: PELON MCKAY MD CHIEF COMPLAINT: Chief Complaint Patient presents with ??? Pre-op Exam HISTORY OF PRESENT ILLNESS: Doug Smith is a 47 y.o. year old male who comes in today To discuss upcoming surgery for his right chronic middle ear and mastoid effusion with associated moderate to severe mixed hearing loss. The CT scan is unusual as is his exam, in that he has fluid under the canal skin as well as displacing the TM laterally. We discussed the possibility that this represents a cholesterol granuloma. A previous attempt at placing a tube was unsuccessful. We have planned a right postauricular exploratorytympanotomy with possible mastoidectomy both to alleviate the fluid and try and prevent its recurrence. We also may place a tube. Department of Otolaryngology PHYSICAL EXAMINATION CONSTITUTIONAL: APPEARANCE: The patient appears alert, cooperative, and comfortable. ABILITY TO COMMUNICATE / VOICE: Normal for age HEAD AND FACE: FACIAL STRENGTH: Intact and symmetrical bilaterally EXTERNAL EAR & NOSE: No external ear or nose deformity noted EYES: EYES: exam not performed EARS: OTOSCOPY: Right external auditory canal: swollen posterior canal with apparent fluctuance on palpation Left external auditory canal: patent and non-inflamed Right tympanic membrane: dull, buldging, no landmarks evident Left tympanic membrane: intact and normally mobile without retraction, perforation or effusion WHISPER/TUNING FORK: Hearing mildly decreased ASSESMENT: Encounter Diagnoses Name Primary? Chronic serous OM (otitis media) Yes ??? Conductive hearing loss, middle ear I will plan a post-auricular exploration on the right with possible complete mastoidectomy if thereis cholesterol granuloma or other pathology in the mastoid. We discussed risks including failure toimprove the hearing or resolve the fluid, persistent CSF leak or otorrhea, facial nerve injury, TM perforation or need for further surgery. PLAN: Doug was seen today for pre-op exam. Diagnoses and associated orders for this visit: Chronic serous om (otitis media) Conductive hearing loss, middle ear The risks and benefits of surgery were discussed with Doug Smith during today's visit. He understands these and wishes to proceed with surgery. Written informed consent was obtained. Return for surgery. PELON MCKAY MD documented in this encounter Plan of Treatment Not on file documented as of this encounter Visit Diagnoses Diagnosis Chronic serous OM (otitis media)- Primary Simple or unspecified chronic serous otitis media Conductive hearing loss, middle ear documented in this encounter Care Teams Scientific Informatics Analyst Relationship Specialty Start Date End Date Tiffanie Strickland MD [address] [place] [id number] PCP - General 10/15/10 10/01/14 documented as of this encounter
--- OUTSIDE RECORDS SUMMARY | 2024-08-03 10:41 | XMS_ITS | Encounter Summary ---
Author Organization [facility] Address [address] [place] [address] Care Team Providers Care Clinical Data Management Manager Name Role Phone None, Provider Primary Care Provider Unavailabl e Encounter Details Date Type Department Care Team (Late st Contact Info) Description 04/06/2024 Lab Requisition [facility] Pathology & Laboratory Medicine - [facility] [address] [place], [place] [id number] Outr Resulting Lab, Provider Social History Tobacco [...] Associated Diagnosis Comments PSA TOTAL, DIAGNOSTIC Routine 04/06/2024 12:00 EDT documented in this encounter Results * PSA TOTAL, DIAGNOSTIC (04/06/2024 12:00 EDT) PSA 1.2 <=3.5 ng/mL 04/07/2024 8:06 EDT [facility] Blood VENOUS BLOOD / Unknown 04/06/2024 12:00 EDT 04/06/2024 22:04 EDT Narrative [facility] - 04/07/2024 8:06 EDT NOTE: Serum PSA concentration should not be interpreted as absolute evidence for the presence or absence of malignant disease. Assayed on Siemens Xamarinaur XPT using chemiluminescent technology.??Values obtained by using different assay methods cannot be used interchangeably. us Provider Outr Resulting Lab CHEMISTRY & BLOOD GA S ORDERABLES Final Result [facility] [address] [place] [address] documented in this encounter Visit Diagnoses Not on filedocumented in this encounter Care Teams Clinical Data Management Manager Relationship Specialty Start Date End Date None, Provider PCP - General 10/02/14 documented as of this encounter
--- OUTSIDE RECORDS SUMMARY | 2024-08-03 10:41 | XMS_ITS | Encounter Summary ---
Author Organization [facility] Address [address] [place] [address] Care Team Providers Care Chiller Hand Name Role Phone Tiffanie Strickland MD Primary Care Provider Reason for Visit * Reason Comments Follow-up rt ear Encounter Details Date Type Department Care Team (Late st Contact Info) Description 09/12/2012 12:45 [place] [address] Pelon Mckay MD [address] [place] [address] [address] [place] [address] Cholesteatoma of middle ear and mastoid (Primary Dx) Social History Tobacco Use Types [...] Progress Notes * Pelon Mckay MD - 09/12/2012 1312 EST Progress Note Division of Otolaryngology, Head and Neck Surgery Date of Service: 09/12/2012 Provider: PELON MCKAY MD CHIEF COMPLAINT: Chief Complaint Patient presents with ??? Follow-up rt ear HISTORY OF PRESENT ILLNESS: Doug Smith is a 47 y.o. year old male who comes in today today to follow up on his right middle ear cholesteatoma. He has been using drops and does not note any drainage. His hearing has been stable. Department of Otolaryngology PHYSICAL EXAMINATION CONSTITUTIONAL: APPEARANCE: The patient appears alert, cooperative, and comfortable. ABILITY TO COMMUNICATE / VOICE: Normal HEAD AND FACE: FACIAL STRENGTH: Intact and symmetrical bilaterally EXTERNAL EAR & NOSE: No external ear or nose deformity noted EYES: EYES: no nystagmus EARS: OTOSCOPY: Right external auditory canal: obstructed by crusty drainage, softened with peroxide and removed, cleaned out in office Left external auditory canal: not examined Right tympanic membrane: tube in place and patent. Less inflammed, no polyp noted canal non-swollen Left tympanic membrane: not examined WHISPER/TUNING FORK: Hearing subjectively normal ASSESMENT: Encounter Diagnoses Name Primary? Cholesteatoma of middle ear and mastoid Yes Improved, continue drops follow up two weeks. PLAN: Doug was seen today for follow-up. Diagnoses and associated orders for this visit: Cholesteatoma of middle ear and mastoid Return in about 2 weeks (around 09/26/2012). PELON MCKAY MD documented in this encounter Plan of Treatment Not on file documented as of this encounter Visit Diagnoses Diagnosis Cholesteatoma of middle ear and mastoid(385.33)- Primary Cholesteatoma of middle ear and mastoid documented in this encounter Discontinued Medications Medication Sig Discontinue Reason Start Date End Da te oxycodone-acetaminophen (PERCOCET) 5-325 mg per tablet Take 1-2 Tabs by mouth every 4 hours as needed for Pain. 08/02/2012 09/12/2012 documented as of this encounter Care Teams Chiller Hand Relationship Specialty Start Date End Date Tiffanie Strickland MD [address] [place] [address] [phone] (Work) PCP - General 10/15/10 10/01/14 documented as of this encounter
--- OUTSIDE RECORDS SUMMARY | 2024-08-03 10:41 | XMS_ITS | Encounter Summary ---
Author Organization [facility] Address [address] [place] [address] Care Team Providers Care Rotary Helper Name Role Phone Tomás Strickland MD Primary Care Provider Encounter Details Date Type Department Care Team (Late st Contact Info) Description 08/02/2012 Results Only [address] [id number] Pelon Mckay MD [address] [place] [address] [address] [place] [address] Social History Tobacco Use Types Packs/Day Years [...] Priority Date/Time Associated Diagnosis Comments SURGICAL PATHOLOGY Routine 08/02/2012 0:00 EST documented in this encounter Results * SURGICAL PATHOLOGY (08/02/2012 0:00 EST) Pathology Report: SURGICAL PATHOLOGY REPORT Reports generated via electronic interface contain original data; however they are lacking the format of the original report. Caution should be taken when reading/interpreti ng unformatted reports. Name: ? DOUG SMITH ? Accession #: ? [id number] ? : ? 1965 (Age: 47) ??M ? Collect Date: ? 08/02/2012 ? Location: ? [facility] ? Receive Date: ? 08/02/2012 ? Provider: PELON MCKAY MD Copy to: TOMÁS STRICKLAND MD ? Final Pathologic Diagnosis: A. ?Subcutaneous tissue, right external auditory canal, biopsy: 1. ?Ceruminous /apocrine glands and inflamed fibrous tissue. ??See comment. B. ?Soft tissue, right middle ear, biopsy: 1. ?Keratin debris. ??See comment. ?? Comment: ? Deeper levels have been examined (A-B). Part A, the ceruminous/apocrin e dilated glands are cystically dilated and few contain acute inflammation. Background connective tissue has a lymphoid aggregate and fibrosis, these feature are in keeping with an inflammatory process. No features of malignancy noted. Part B, the keratinous debris may be overlying of Cholesteatoma. Clinical correlation is recommended. ??(Dr. Johnson)/[facility] Document reviewed and electronically signed by: SHY JOHNSON MD Report ??Date: 08/07/2012 10:23 By the signature above, the attending physician certifies that he/she has personally conducted a gross and/or microscopic examination of the described specimens and rendered or confirmed the above diagnosis. Specimen(s) Received: A. ?Right subcutaneous tissue external auditory canal B. ? Right tissue middle ear Clinical History: ? Chronic otomastoiditis right ear Gross Description: ? Received in normal saline labelled Doug Smith and subcutaneous tissue right external auditory canal are two pacheco-pink irregular soft tissue fragments measuring 0.4 x 0.3 x 0.3 cm and 0.5 x 0.3 x 0.3 cm. ??The specimens are entirely submitted as (A). Received in normal saline labelled Doug Smith and tissue right middle ear are two pacheco-pink irregular soft tissue fragments measuring less than 0.1 x 0.1 x 0.1 cm and 0.2 x 0.1 x 0.1 cm. ??The specimens are entirely submitted as (B). ??(Brendan Cotto/sharlene End of Report MARIANA ANDERSEN 08/02/2012 08/02/2012 14: 59 EST us Pelon Mckay MD PATHOLOGY ORDERABLES Fi nal Result MARIANA ANDERSEN [address] [place] [address] documented in this encounter Visit Diagnoses Not on filedocumented in this encounter Care Teams Rotary Helper Relationship Specialty Start Date End Date Tomás Strickland MD [address] [place] [address] PCP - General 10/15/10 10/01/14 documented as of this encounter
--- OUTSIDE RECORDS SUMMARY | 2024-08-03 10:41 | XMS_ITS | Encounter Summary ---
Author Organization [facility] Address [address] [place] [address] Care Team Providers Care Surgical Supervisor Name Role Phone Tiffanie Strickland MD Primary Care Provider [phone] Reason for Referral * (Routine/Next Available) - Closed Specialty Diagnoses / Procedures Referred By Contac t Referred To Contact Diagnoses Conductive hearing loss, middle ear Perforation of tympanic membrane, unspecified Procedures HEARING EVALUATION Pelon Mckay MD Phone: tel: fax: Referral ID Status Reason Start Date Expiration Date Visits Re quested Visits Authorized [id number] Closed 06/11/2014 1 1 Reason for Visit * Reason Comments Follow-up ear Encounter Details Date Type Department Care Team (Late st Contact Info) Description 06/11/2014 14:00 EDT Office Visit [facility] ENT [address] [address] Pelon Mckay MD [address] [facility] [address] 4 [place] [address] Perforation of tympanic membrane, unspecified (Primary Dx); Conductive hearing loss, middle ear [...] Progress Notes * Pelon Mckay MD - 06/11/2014 1419 EDT Progress Note Division of Otolaryngology, Head and Neck Surgery Date of Service: 06/11/2014 Provider: PELON MCKAY MD CHIEF COMPLAINT: Chief Complaint Patient presents with ??? Follow-up ear HISTORY OF PRESENT ILLNESS: Doug Smith is a 49 y.o. year old male who comes in today to follow up on his draining right ear. He reports that the drainage has stopped. His hearing is still down on that side. He has no pain. Department of Otolaryngology PHYSICAL EXAMINATION CONSTITUTIONAL: APPEARANCE: [...] canal: patent and non-inflamed Right tympanic membrane: anterior 15% central perforation--dry with normal middle ear mucosa. Left tympanic membrane: not examined WHISPER/TUNING FORK: Hearing subjectively normal AUDIOGRAM: I have reviewed the audiogram performed today by our audiology staff on Doug Smith and it demonstrates: On the left, there is a mild high-frequency sensorineural hearing loss with good word recognition score(s) On the left, there is a moderately severe low-frequency, high-frequency mixed hearing loss with good word recognition score(s) ASSESMENT: Encounter Diagnoses Name Primary? Perforation of tympanic membrane, unspecified Yes ??? Conductive hearing loss, middle ear I don't think this is from recurrent cholesteatoma, just an acute OM with perforation. The middle ear looks quite good. We should probably wait and see if the perf closes, then we could consider ossicular repair and/or tympanoplasty. He will keep the ear dry and I will see him in 2-3 months. He will let us know if he gets any drainage in the meantime. If he does, he should use drops. PLAN: Doug was seen today for follow-up. Diagnoses and associated orders for this visit: Perforation of tympanic membrane, unspecified - Hearing Evaluation Conductive hearing loss, middle ear - Hearing Evaluation PELON MCKAY MD documented in this encounter Procedure Notes * DURALUMIN METALWORKER, SCAN 2 - 06/15/2014 1012 EDTAssociated Order(s): PROCEDURE REPORTS - SCANNED documented in this encounter Plan of Treatment Scheduled Orders Name Type Priority Associated Diagnoses Orde r Schedule HEARING EVALUATION Audiology Routine Conductive hearing loss, middle ear Perforation of tympanic membrane, unspecified Ordered: 06/11/2014 documented as of this encounter Procedures Procedure Name Priority Date/Time Associated Diagnosis Comments PROCEDURE REPORTS - SCANNED 06/15/2014 10:12 EDT documented in this encounter Results * PROCEDURE REPORTS - SCANNED (06/15/2014 10:12 EDT) 06/15/2014 10:1 2 EDT Narrative 06/15/2014 14:55 EDT Procedure Note DURALUMIN METALWORKER, SCAN 2 - 06/15/2014 10:12 EDT us Scan 2 Security System Technician PROCEDURE/MINOR SURGICAL OR DERABLES Final Result documented in this encounter Visit Diagnoses Diagnosis Perforation of tympanic membrane, unspecified- Primary Conductive hearing loss, middle ear documented in this encounter Care Teams Surgical Supervisor Relationship Specialty Start Date End Date Tiffanie Strickland MD [address] [place] [address] PCP - General 10/15/10 10/01/14 documented as of this encounter
--- OUTSIDE RECORDS SUMMARY | 2024-08-03 10:41 | XMS_ITS | Encounter Summary ---
Author Organization [facility] Address [address] [place] [address] Care Team Providers Care Stope Miner Name Role Phone None, Provider Primary Care Provider Unavailabl e Reason for Visit * Reason Comments Post-OP Follow Up Encounter Details Date Type Department Care Team (Late st Contact Info) Description 10/22/2014 13:00 EST Office Visit [facility] [place] [address] Pelon Mckay MD [address] [place] [address], 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 Post-OP Follow Up HISTORY OF PRESENT ILLNESS: Doug Smith is a 49 y.o. year old male who comes in today to follow-up a little more than 2 weeks after right tympanoplasty and ossiculoplasty. This was done as a second look procedure and indeedthere was a small xavier of cholesteatoma just inferior to the cochleariform process in the middle ear. I removed this completely and without difficulty. We used a Kaufman Cap on a Mobile stapes for the ossiculoplasty. He has done well with surgery with no unexpected pain vertigo or ear drainage. Lateral packing is already come out. Department of Otolaryngology PHYSICAL EXAMINATION CONSTITUTIONAL: APPEARANCE: The patient appears alert, cooperative, and comfortable. ABILITY TO COMMUNICATE / VOICE: Normal HEAD AND FACE: FACIAL STRENGTH: Intact and symmetrical bilaterally EXTERNAL EAR & NOSE: No external ear or nose deformity noted EYES: EYES: exam not performed EARS: OTOSCOPY: Right external auditory canal: Packing removed canal looks fine Left external auditory canal: not examined Right tympanic membrane: intact and in good position Left tympanic membrane: not examined WHISPER/TUNING FORK: Hearing subjectively normal ASSESMENT: Encounter Diagnoses Name Primary? 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 Conductive hearing loss, middle ear Doing well after right tuboplasty and a septoplasty with removal of a small residual pro cholesteatoma from middle ear. Then keeping her dry for another week or 2 and then follow up with me in a month and we will check the hearing at that time. PLAN: Doug was seen today for post-op follow up. 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)- Primary Cholesteatoma of middle ear and mastoid Conductive hearing loss, middle ear documented in this encounter Discontinued Medications Medication Sig Discontinue Reason Start Date End Da te oxyCODONE (ROXICODONE) 5 mg immediate release tablet Take 1-2 Tabs by mouth every 4 hours as needed for Pain Daily Max: 60 mg 10/05/2014 10/22/2014 ondansetron (ZOFRAN-ODT) 4 mg disintegrating tablet Take 1 Tab by mouth every 8 hours as needed for Nausea 10/05/2014 10/22/2014 documented as of this encounter Care Teams Stope Miner Relationship Specialty Start Date End Date None, Provider PCP - General 10/02/14 documented as of this encounter
--- OUTSIDE RECORDS SUMMARY | 2024-08-03 10:41 | XMS_ITS | Encounter Summary ---
Author Organization [facility] Address [address] [place] [address] Care Team Providers Care Commercial Lawn Specialist Name Role Phone Tiffanie Strickland MD Primary Care Provider Reason for Visit * Reason Comments Pre-op Exam right middle ear cho lesteatoma Encounter Details Date Type Department Care Team (Late st Contact Info) Description 10/24/2012 14:45 EST Office Visit [facility] [place] [address] Pelon Mckay MD [address] [facility] [address] [place] [address] Cholesteatoma of middle ear and [...] Progress Notes * Pelon Mckay MD - 10/24/2012 1631 EST Progress Note Division of Otolaryngology, Head and Neck Surgery Date of Service: 10/24/2012 Provider: PELON MCKAY MD CHIEF COMPLAINT: Chief Complaint Patient presents with ??? Pre-op Exam right middle ear cholesteatoma HISTORY OF PRESENT ILLNESS: Doug Smith is a 47 y.o. year old male who comes in today to follow up on his right middle ear cholesteatoma. He has had no drainage or pain from that ear. Department of Otolaryngology PHYSICAL EXAMINATION [...] canal: patent and non-inflamed Right tympanic membrane: tube in place and dry. TM slightly thickened, but much improved. Left tympanic membrane: intact without retraction, perforation or effusion WHISPER/TUNING FORK: Hearing subjectively normal ASSESMENT: Encounter Diagnoses Name Primary? Cholesteatoma of middle ear and mastoid Yes Doug and I discussed the risks associated with mastoid surgery during this visit. These include, but are not limited to, perforation of the ear drum or change in taste or loss of hearing. Very unlikely complications include temporary or permanent weakness of the facial muscles on the same side, CSF leak, brain herniation, total loss of hearing on that side or prolonged vertigo. Doug understands that we may need to enlarge the opening to the ear canal and create a common cavity with the mastoid and ear canal that would require regular care. We may also need to consider a second-look procedure in 9 months to make sure there is no skin in the middle ear or reconstruct hearing. After discussion of the risks, the patient gave written consent for this procedure. PLAN: Doug was seen today for pre-op exam. Diagnoses and associated orders for this visit: Cholesteatoma of middle ear and mastoid Return for surgery. 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
--- OUTSIDE RECORDS SUMMARY | 2024-08-03 10:41 | XMS_ITS | Encounter Summary ---
Author Organization [facility] Address [address] [place] [address] Care Team Providers Care Floral Specialist Name Role Phone Tiffanie Strickland MD Primary Care Provider [phone] Reason for Referral * Radiology Services (Routine/Next Available) - Closed Specialty Diagnoses / Procedures Referred By Contac t Referred To Contact Diagnoses Conductive hearing loss in right ear Procedures CT TEMPORAL BONES Smooth Pinzon MD Phone: tel: fax: Referral ID Status Reason Start Date Expiration Date Visits Re quested Visits Authorized [id number] Closed 03/22/2012 1 1 Reason for Visit * Reason Comments Hearing Loss right sided hearing loss gradual x 2 years constant moderate to severe. Encounter Details Date Type Department Care Team (Late st Contact Info) Description 03/22/2012 10:00 EDT Office Visit [facility] ENT - [address] [address] Unknown, Provider, Smooth Olivarez MD [address] [place] [address] [address] [place] [address] Conductive hearing loss in right ear (Primary Dx); Deviated nasal septum Social History Tobacco Use Types Packs/Day Years [...] Sign Reading Time Taken Comments Blood Pressure 113/69 03/22/2012 1014 EDT Pulse 58 03/22/2012 1014 EDT Temperature - - Respiratory Rate - - Oxygen Saturation - - Inhaled Oxygen Concentration - - Weight 104.3 kg (230 lb) 03/22/2012 1014 EDT Height 177.8 cm (5' 10) 03/22/2012 1014 EDT Body Mass Index 33 03/22/2012 1014 EDT documented in this encounter Mental Status * Because of a physical, mental, or emotional condition, do you have serious difficulty concentrating, remembering, or making decisions? (5 years old or older) Answer Entry Date Author Yes 11/04/2010 14:40 EDT Barbara Johns RN documented in this encounter Progress Notes * Smooth Pinzon MD - 03/22/2012 1031 EDT This is a consult from Tiffanie Strickland for evaluation of hearing loss. History of Present Illness: This is a 46-year-old male with a long history of right-sided hearing loss. Symptoms are of moderate severity, constant. He has a history of ear infections as a child. No known modifying factors. He has some tinnitus, but no vertigo, pain or drainage. He was evaluated byAdia Nelson and an audiogram revealed a large right conductive hearing loss and flat tympanogram. Past Medical History: Significant for depression, suicidal ideation, erectile dysfunction, vitamin D deficiency, prostatitis, headache, reactive airway disease. No previous surgeries. Family history is significant for stroke and cancer. Social History: Significant for smoking. He has no known drug allergies. Current Medications: Vitamin D, temazepam, Celexa and Desyrel. Review of Systems: Significant for cough, wheeze, depression. Otherwise, negative for complete review of all systems. Objective: General: Well-developed, well-nourished, cooperative adult male in no acute distress. Normal voice. Vital signs: Height 70 inches, weight 230, blood pressure 113/69, pulse 68. No reportable pain. The face is normal without lesions. No tenderness to palpation. Salivary glands are normal. Facial strength is symmetric. Eye exam is normal. Ears: Left external auditory canal is clear. The tympanic membrane is normal. The right canal is narrowed with bulging of the canal posteriorly, is filled with squamous debris. Using the operating microscope and microinstruments this was removed. There is a large red mass deep in the canal obstructing the tympanic membrane. There is no mastoid swelling or tenderness. Nose: Nasal dorsum is midline. Right nasoseptal deviation. Oral cavity is clear.Posterior pharynx reveals a narrow posterior pharyngeal airway. The patient has a history of snoring. Neck: No pathologic lymphadenopathy. Trachea is midline. Thyroid is normal. Chest reveals some inspiratory wheezes bilaterally. Heart: Regular rate and rhythm. Impression: Right ear mass, rule out cholesteatoma versus congenital abnormality. Plan: Will obtain a CT scan of the temporal bone. Follow up after CT. CC: Tiffanie Nelson documented in this encounter Plan of Treatment Scheduled Orders Name Type Priority Associated Diagnoses Orde r Schedule CT TEMPORAL BONES Imaging Routine Conductive hearing loss in right ear Ordered: 03/22/2012 documented as of this encounter Visit Diagnoses Diagnosis Conductive hearing loss in right ear- Primary Conductive hearing loss, unilateral Deviated nasal septum documented in this encounter Historical Medications * This list may reflect changes made after this encounter. TEMAZEPAM ORAL Take 15 mg by mouth at bedtime. ERGOCALCIFEROL, VITAMIN D2, (VITAMIN D ORAL) Take by mouth. citalopram (CELEXA) 40 mg tablet Take 40 mg by mouth daily. trazodone (DESYREL) 150 mg tablet Take 150 mg by mouth at bedtime. 09/24/2014 added in this encounter Care Teams Floral Specialist Relationship Specialty Start Date End Date Tiffanie Strickland MD [address] [place] [address] PCP - General 10/15/10 10/01/14 documented as of this encounter
--- OUTSIDE RECORDS SUMMARY | 2024-08-03 10:41 | XMS_ITS | Encounter Summary ---
Author Organization [facility] Address [address] [place] [address] Care Team Providers Care Engineering Operations Leader Name Role Phone Tiffanie Strickland MD Primary Care Provider Reason for Visit * Reason Comments Follow-up rt ear Encounter Details Date Type Department Care Team (Late st Contact Info) Description 09/26/2012 13:00 [place] [address] Pelon Mckay MD [address] [place] [address] [address] [place] [address] Cholesteatoma of middle ear and [...] Progress Notes * Pelon Mckay MD - 09/26/2012 1315 EST Progress Note Division of Otolaryngology, Head and Neck Surgery Date of Service: 09/26/2012 Provider: PELON MCKAY MD CHIEF COMPLAINT: No chief complaint on file. HISTORY OF PRESENT ILLNESS: Doug Smith is a 47 y.o. year old male who comes in today to follow up after tube placement in the right ear for a middle effusion associated with cholesteatoma. He continues to do pretty well. He has not had any drainage, but thinks something pops in his ear when he bend over. His hearing is stable. Department of Otolaryngology PHYSICAL EXAMINATION CONSTITUTIONAL: APPEARANCE: The patient appears alert, cooperative, and comfortable. ABILITY TO COMMUNICATE / VOICE: Normal for age HEAD AND FACE: FACIAL STRENGTH: Intact and symmetrical bilaterally EXTERNAL EAR & NOSE: No external ear or nose deformity noted EYES: EYES: no nystagmus EARS: OTOSCOPY: Right external auditory canal: obstructed by drainage and thick, rubber cement consistency, cleanedout in office, Underlying canal skin looks good. Left external auditory canal: not examined Right tympanic membrane: tube remains patent, but anterior flange is now lateral to TM. Posterior flange is in middle ear. There is some debris in the middle ear. TM looks thinner. There is no granulation. Left tympanic membrane: not examined WHISPER/TUNING FORK: Hearing subjectively normal AUDIOGRAM: I have reviewed the audiogram performed today by our audiology staff on Doug Smith and it demonstrates: On the left, there is a mild high-frequency sensorineural hearing loss with good word recognition score(s) On the right, there is a moderately severe low-frequency, high-frequency mixed hearing loss with good word recognition score(s) Improved from pre op. ASSESMENT: Encounter Diagnoses Name Primary? Cholesteatoma of middle ear and mastoid Yes This is improved. I think he should continue drops, we can probably plan mastoid tympanoplasty in 6weeks or so. I'll see him back in 4 weeks. PLAN: Doug was seen today for no specified reason. 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
--- OUTSIDE RECORDS SUMMARY | 2024-08-03 10:41 | XMS_ITS | Clinical Summary ---
Author Organization [facility] Address [address] [place] [address] Care Team Providers Care C.O.D. Audit Clerk Name Role Phone None, Provider Primary Care [...] 12/30/2009 01/10/2010 Outbursts of anger 12/23/2009 0 Surgical History Surgery Date Site/Laterality Comments MASTOIDECTOMY 11/16/12 Right tympanoplasty with mastoidectomy for cholesteatoma TYMPANOPLASTY 10/05/14 Right TM perforation with recurrent cholesteatoam Medical History Medical History Date Comments Obesity Smoking Psychiatric problem depression Erectile dysfunction Vitamin D deficiency Otitis externa Prostatitis Headache(784.0) RAD (reactive airway disease) Chest pain Dental caries Family History Medical History Relation Comments Stroke Father Cancer Mother Relation Status Comments Father Mother Social History Tobacco Use Types Packs/Day Years [...] file Not on file Not on file Obstetrics History Last Filed Vital Signs Vital Sign Reading [...] Body Mass Index 34.01 09/24/2014 1008 EST Plan of Treatment Health Maintenance Due Date Last Done Comments Hepatitis C Screen 1964 Pneumococcal Immunization (1 of 2 - PCV) 1970 Hepatitis B Vaccine (1 of 3 - 19+ 3-dose series) 04/12 COVID-19 Vaccine ( - 2023- season) 2024 RSV Immunization ( o r 60+ Years) (1 - 1-dose 75+ series) 2039 Insurance MEDICARE ACO [place] Advance Directives For more information, please contact: [phone] * Full Code (Latest Code Status on File) Date Activated Date Inactivated Comments 11/04/2010 13:59 11/24/2010 18:24 * Full Code Date Activated Date Inactivated Comments 10/09/2010 0:25 10/21/2010 13:43 * Full Code Date Activated Date Inactivated Comments 02/15/2010 23:08 03/07/2010 12:17 * Full Code Date Activated Date Inactivated Comments 12/23/2009 2:32 01/10/2010 11:38 Care Teams C.O.D. Audit Clerk Relationship Specialty Start Date End Date None, Provider PCP - General 10/02/14
--- OUTSIDE RECORDS SUMMARY | 2024-08-03 10:41 | XMS_ITS | Encounter Summary ---
Author Organization [facility] Address [address] [place] [address] Care Team Providers Care Varnishing Machine Operator Name Role Phone Tiffanie Strickland MD Primary Care Provider Encounter Details Date Type Department Care Team (Late st Contact Info) Description 11/23/2011 Abstract Used for ABSTRACTING Data [phone] Tiffanie Strickland MD [address] [place] [address] [id number] Social History Tobacco Use Types Packs/Day Years [...] Answer Entry Date Author Yes 11/04/2010 14:40 Barbara Barron RN documented in this encounter Plan of Treatment Not on file documented as of this encounter Visit Diagnoses Not on filedocumented in this encounter Discontinued Medications Medication Sig Discontinue Reason Start Date End Da te fluoxetine (PROZAC) 10 mg capsule Take 3 Caps by mouth daily. Error 11/24/2010 11/23/2011 risperidone (RISPERDAL) 1 mg tablet Take 1 Tab by mouth at bedtime. Error 11/24/2010 11/23/2011 temazepam (RESTORIL) 15 mg capsule Take 1 Cap by mouth at bedtime. Error 11/24/2010 11/23/2011 documented as of this encounter Care Teams Varnishing Machine Operator Relationship Specialty Start Date End Date Tiffanie Strickland MD [address] [place] [id number] PCP - General 10/15/10 10/01/14 documented as of this encounter
--- OUTSIDE RECORDS SUMMARY | 2024-08-03 10:41 | XMS_ITS | Encounter Summary ---
Author Organization [facility] Address [address] [place] [address] Care Team Providers Care Event Technician Name Role Phone Tiffanie Strickland MD Primary Care Provider Reason for Visit * Reason Comments Post-OP Follow Up Encounter Details Date Type Department Care Team (Late st Contact Info) Description 12/01/2012 16:00 EDT Office Visit [facility] ENT- [address] [address] Pelon Mckay MD [address] [facility], [address] [place] [address] Cholesteatoma middle ear (Primary Dx) Discharge Disposition: Auto Discharge Social [...] Refills Last Filled Start Date End Date neomycin-polymyxin- hydrocortisone (CORTISPORIN) 3.5-10,000-1 mg-unit/mL-% otic suspension Use at bed time for 2 weeks in right ear 1 Bottle 3 12/01/2012 05/28/2014 documented in this encounter Discharge Disposition Disposition Code Departure Means Destination Auto Discharge documented in this encounter Progress Notes * Pelon Mckay MD - 12/05/2012 2303 EDT Progress Note Division of Otolaryngology, Head and Neck Surgery Date of Service: 12/01/2012 Provider: PELON MCKAY MD CHIEF COMPLAINT: Chief Complaint Patient presents with ??? Post-OP Follow Up HISTORY OF PRESENT ILLNESS: Doug Smith is a 47 y.o. year old male who comes in today to follow up after right [id number] mastoid tympanoplasty with excision of middle ear cholesteatoma. He has done well with no postop problems. HE had extensive disease and the malleus and incus were removed both for access and because they were involved with disease. The plan is for a second look with ossiculoplasty in about 9 months. EXAM: This patient is alert and appears comfortable. His voice is normal. His breathing is normal. His facial nerve function is normal and symmetric. Post auricular sutures are removed. The incision looks good. Lateral and medial canal packing was removed. The TM looks intact and the canal patent. ASSESMENT: Encounter Diagnoses Name Primary? Cholesteatoma middle ear Yes Doing well, will start drops and see him again in one month in [place]. PLAN: Doug was seen today for post-op follow up. Diagnoses and associated orders for this visit: Cholesteatoma middle ear Other Orders - kqozoudv-jobpldbcn-ciccjbewimboac (CORTISPORIN) 3.5-10,000-1 mg-unit/mL-% otic suspension; Use atbed time for 2 weeks in right ear Return in about 4 weeks (around 12/29/2012). PELON MCKAY MD documented in this encounter Plan of Treatment Not on file documented as of this encounter Visit Diagnoses Diagnosis Cholesteatoma middle ear- Primary Cholesteatoma of middle ear documented in this encounter Care Teams Event Technician Relationship Specialty Start Date End Date Tiffanie Strickland MD [address] [place] [id number] PCP - General 10/15/10 10/01/14 documented as of this encounter
--- OUTSIDE RECORDS SUMMARY | 2024-08-03 10:42 | XMS_ITS | Encounter Summary ---
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 states you ask me these same dumb questions every day. Ends interview dismissively, angry. With attending, pt is less angry. Wanted to show me a picture of the [place] battleship but cannot find it on the computer again. Stressed when he thinks of court date, but working on his list of battleships. Has long lists with their weight, and other information. Will consider leaving tomorrow tostay in a respite bed to get himself settled and not have to maldonado in the AM of his court date. Past family/social history: Unchanged Current hospital medications Medication Route Frequency ??? fluticasone (FLONASE) nasal spray 2 [place] Nasal DAILY ??? zolpidem (AMBIEN) tablet 5 mg Oral AT BEDTIME PRN ??? ibuprofen (MOTRIN) tablet 600 mg Oral Q6H PRN ??? acetaminophen (TYLENOL) tablet 650 mg Oral Q4H PRN ??? olanzapine (ZYPREXA) tablet 5 mg Oral BID PRN Review of Systems: Pertinent items are noted in HPI. Mental Status Exam: Oriented to person, place, time/date, situation, day of week, month of year and year Attention: intact Concentration: intact Appearance: appropriate Behavior: Evasive and Demanding Speech: Normal Psychomotor activity: Increased Gait: Steady Mood: Angry and Labile Affect: congruent with mood Thought process: Goal directed Thought content: Intact and Helplessness Perceptual disturbances: No hallucinations Suicidality: no active SI today Homicidality: No homicidal thoughts Insight: good Judgement: fair Language: normal Fund of knowledge: Digital Asset Manager of education level Memory: Intact BP 125/72 Pulse 67 Temp 35.6 ??C (96.1 ??F) Resp 16 Ht 1.778 m (5' 10) Wt 104.327 kg (230 lb) SpO2 96% Assessment/Problems: For complete assessment see previous note. 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 He has had ups and downs and today is not a better day for him. When he keeps his mind off of his upcoming court date he apparently feels better. He might benefit from a long-acting benzodiazepine but when distracted from his stressors is actually quite relaxed and affable. Plan: - Maintain MIKHAIL 4, frequents - Continue to encourage social interaction and activities Discharge Plan: PM or early Wednesday AM Chaz Nixon MD 03/05/2010 10:39 AM Attending attestation: I have seen and examined the patient. I agree with the findings and plan of care as documented in the resident's note with my edits indicated in blue. I personally spent a total of 25 minutes in direct floor time on this patient, of which 14 minutes of this time was spent discussing the coordination of care with patient and staff. JENNIFER WATSON MD Attending, Inpatient Psychiatry, [facility] * Orlin Shankar - 03/05/2010 0600 EDT Active Multi-Disciplinary problems: POTENTIAL FOR HARM TO SELF OR OTHERS [36772] (02/17/10) ANXIETY [27796] (02/17/10) DEFENSIVE COPING [84161] (02/17/10) ALTERATION IN SLEEP [57259] (02/22/10) Data:Pt awake @ 00, 0400,0430, and 0500, no suicide gestures. Action:routine observations Response:cont to observe and note Orlin Shankar RN 03/05/2010 6:00 AM * Philip Ferraro RN - 03/04/2010 2012 EDT Patient Active Problem List Diagnoses Code ??? Major depression 296.20BE ??? Otitis externa 380.10F Active Multi-Disciplinary problems: POTENTIAL FOR HARM TO SELF OR OTHERS [23097] (02/17/10) ANXIETY [00321] (02/17/10) DEFENSIVE COPING [49374] (02/17/10) ALTERATION IN SLEEP [50561] (02/22/10) Data: Patient has spent the majority of the shift using the computer to reaseach WWII. He attended an evening group and ate dinner in the milieu. No behavioral issues noted. Patient denies SI/self harm thoughts. He is less irritable and sarcastic. He is easily engaged around his love of history. [id number] patient c/o 5/1o right ear pain and received 600 mg of PO PRN Ibuprofen with good result. Action: Routine observation, short 1:1 with nursing for support, monitor for safety in environment of care, assess for pain and anxiety, medication as prescribed, assess for SI, assess and build on patient's strengths Response: Patient is in his room sleeping in no apparent distress. Will continue to monitor and assess. PHILIP HOFF RN 03/04/2010 8:12 PM * Jenyn Sood - 03/04/2010 1903 EDT S/O: Pt attended the Music Group for 40 min. Pt stated I am glad I came, it was fun. Pt reported towards the end of the group he has been having ear aches, this blog writer informed his nurse who is planning on checking in on him. Pt chose songs and fully participated in singing the songs. A/ engaged,at times supportive to another pt. improved mood. P/: To continue to go to therapeutic groups. * Ema Joseph - 03/04/2010 1702 EDT Open Art: S/O: Pt mixed grout and added color in the form of paint and grouted his trivet. 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 Pt was clear that he did not need help with this because he already knew how to do it. A: Organized, social, positive attitude, no complaints. P: Continued participation in therapeutic groups. * Sofiya Olivarez - 03/04/2010 1449 EDT Active Multi-Disciplinary problems: POTENTIAL FOR HARM TO SELF OR OTHERS [10307] (02/17/10) ANXIETY [72711] (02/17/10) DEFENSIVE COPING [98384] (02/17/10) ALTERATION IN SLEEP [05270] (02/22/10) Data: Participated in groups, spent time on Wedit researching [place] - a hobby of his he has been interested in for years - he was quite animated when talking about it. Regarding suicidal thoughts, ask me after the hearing. Difficult to engage - sarcastic and dismissive. Action: Assess safety. Assess pain. Encourage participation in groups and the milieu. Offer 1:1 support. Response: Pt remained safe on the unit. Behavior remained in control. Sofiya Olivarez RN 03/04/2010 2:50 PM * mEa Joseph - 03/04/2010 1307 EDT Self Esteem Tools Group: S/O: They've got me to open up a lot more this time than in the past. Pt engaged in group discussion re: goals. He was adamant that he could not think about anything other than his upcoming court date on Wednesday and that he will not be able to make any plans because he does not know the outcome ofthat. Pt then acknowledged that he has accepted the fact that he agreed to have a blending machine operator and also participate in a transitional housing program as part of his discharge plan from the hospital. Pt identified that he is pig-headed re: accepting handouts because he does not want to be like his biofamily whom he views as having lived off the system. A: Alert, organized, over the course of the group pt was able to identify ways that he is acceptinghelp despite not liking or trusting that it will be beneficial to him. P: Continued participation in therapeutic groups. * Anastasiia Watson RN - 03/04/2010 0600 EDT 0600: Pt slept approx. 5 hrs. Awake in TV room watching civil war movie. Cont to monitor. * Anastasiia Watson RN - 03/04/2010 0406 EDT Active Multi-Disciplinary problems: POTENTIAL FOR HARM TO SELF OR OTHERS [52005] (02/17/10) ANXIETY [45534] (02/17/10) DEFENSIVE COPING [97692] (02/17/10) ALTERATION IN SLEEP [47329] (02/22/10) Data: Pt with c/o ear pain at 01/30. Also awakened by other patient in hallway. Action: med with ibuprofen 600 mg po at 0406. Response: Cont to monitor effectiveness. Pt now up and watching TV in dining room. Anastasiia Watson RN 03/04/2010 4:06 AM * Ema Joseph - 03/03/20101934 EDT Games Group: S/O: Pt had cards shuffled and ready to play [employer] with this blog writer. No other patients came at the beginning of the group so pt and this blog writer played and pt finally won a game. Pt stated I have something for you, just a minute and left the room. He returned with a stack of coloring book pictures that he had meticulously colored and asked this blog writer to pick one to keep. Pt was smiling and happy to receive compliments re: the outcome of his hard work coloring the pictures. Pt has repeatedlyidentified coloring pictures as a way to keep himself grounded and to avoid overwhelm from emotional distress related to his upcoming court date. A: Increased self-esteem, sharing something he made as a token gift. Bright affect, social, and friendly. P: Continued participation in therapeutic groups. * Philip Ferraro RN - 03/03/20101930 EDT Patient Active Problem List Diagnoses Code ??? Major depression 296.20BE ??? Otitis externa 380.10F Active Multi-Disciplinary problems: POTENTIAL FOR HARM TO SELF OR OTHERS [66503] (02/17/10) ANXIETY [15191] (02/17/10) DEFENSIVE COPING [25621] (02/17/10) ALTERATION IN SLEEP [27226] (02/22/10) Data: Patient denies suicidal idealization stating not right now. Patient went out for a 30 min break with his cuff folder Cody. Patient came back on time and ate dinner in the milieu. He is appropriate with peers but, avoidant of staff. His affect is restricted, and he is irritable at times when attempts are made to engage him. Patient c/o 12/30 head and ear pain at 1700. Patient received 650 mg ofPO PRN tylenol at that time with good result. He attended evening group. Patient does enjoy talkingabout history and his affect brightened when sharing some of his knowledge with nursing. Action: Routine observation, short 1:1 with nursing for support, monitor for safety in environment of care, assess for pain and anxiety, medication as prescribed, assess for SI, assess and build on patient's strengths Response: Patient is in the activity room watching a movie at this time in no apparent distress. Will continue to monitor and assess. PHILIP HOFF RN 03/03/2010 7:31 PM * Jennifer Watson MD - 03/03/2010 1912 EDT Inpatient Psychiatry Daily Progress Note Admit Date: 02/15/2010 Hospital day: LOS: 16 days Date of Service: 03/03/2010 Legal Status: Legal status: Voluntary Observation Level: Observation / visual check: Routine (Q hour day / chema, Q 1/2 hour night) Locus/Risk of Harm: Current locus of harm: 3 Subjective / Chief Complaint: suicidal ideation of hanging Clinical Update: Pt in good spirits. Playing cards with activities therapist. Talked about anxiety about Wednesday but having learned to distract himself via coloring, cards, and socializing or TV has been helpful. Sleep is fairly good, but woken this AM by another patient and unable to go back to sleep. Researching battleships on the internet which is enjoyable to him. Accepting of a blending machine operator currently and of a respite bed on discharge. Past family/social history: Unchanged Current hospital medications Medication Route Frequency ??? fluticasone (FLONASE) nasal spray 2 [place] Nasal DAILY ??? zolpidem (AMBIEN) tablet 5 mg Oral AT BEDTIME PRN ??? ibuprofen (MOTRIN) tablet 600 mg Oral Q6H PRN ??? acetaminophen (TYLENOL) tablet 650 mg Oral Q4H PRN ??? olanzapine (ZYPREXA) tablet 5 mg Oral BID PRN Mental Status Exam: Tall muscular middle-aged man with large abdominal girth dressed in cut-offs and french T-shirt. Pleasant and sometimes upbeat manner, occasional sarcasm. Affect full range. TP coherent and GD. TC without SI and no intent /plan. No psychosis. Insight: fair. Judgement: good. BP 111/56 Pulse 76 Temp 36 ??C (96.8 ??F) Resp 14 Ht 1.778 m (5' 10) Wt 104.327 kg (230 lb) SpO2 96% Assessment/Problems: Better today likely due to [employer] Rep's visit and feeling more supported. No acute issues. Plan: - Awaiting court date:. -Continue off meds. JENNIFER WATSON MD 03/03/2010 7:12 PM I have seen and examined the patient. I personally spent a total of 25 minutes in direct floor time on this patient, of which 13 minutes of this time was spent in listening to the patient's distress, encouraging distraction techniques, and the coordination of care with patient and staff. JENNIFER WATSON MD Attending, Inpatient Psychiatry, [facility] * Haley Carreon - 03/03/2010 8896 EDT Social Work Progress Note Intervention/Service: Coordination of care, On-going assessment and Supportive Therapy Met this afternoon with Doug and Pastor Ross who came to visit. Doug was clearly pleased to see him. We discussed the plan for the week and how Doug intended to return to [place] on Wednesday and keep his appointments especially his Court appearance. After much discussion, he agreed to allowing [employer] Rep Cody and myself to explore options for an employment attorney to represent Doug in Court. We discussedusing Home Intervention for a safe space in [place] on and Wednesday nights and over the weekend. (Will f/u on this with [facility], therapist). We talked about allowing Chacho to bring his bicycle to him in [place]. Lastly, Doug may be willing to allow me to call his employer to get a read on his job situation. It was difficult for Doug to hear that nothing may be resolved at this hearing on Wednesday, unless he plans to plead guilty and even then he would probably have to return for the consequences. He wasreluctant but more able to hear that he needs to accept help from appropriate resources. This does not make him a user of the system in the negative way he feels his family took advantage of social and economic services. He was also able to hear that he might be working at a different job. * Ema Joseph - 03/03/2010 1625 EDT Seeking Safety: S/O: Pt attended full hour of group re: Coping with Triggers. Pt reviewed informational handouts and participated in the group discussion. Pt talked about increasing stress level he is experiencing as his court date closes in. Pt identified not having anybody in my corner as a big stressor. Pt unreceptive to supportive comments from peers. A: Stuck in negative thinking, aware of lack of resources when he returns to the community. P: Continued participation in therapeutic groups. * Naa Barbosa RN - 03/03/2010 1535 EDT Active Multi-Disciplinary problems: POTENTIAL FOR HARM TO SELF OR OTHERS [24832] (02/17/10) ANXIETY [29731] (02/17/10) DEFENSIVE COPING [61361] (02/17/10) ALTERATION IN SLEEP [50771] (02/22/10) Data: Assigned care at 1230. Uneventful afternoon, watching [place] [place] movie again. Attended group. Action: Offer 1:1 support, encourage group therapy . Offer medications as prescribed. Monitor for safety in the environment of care. Response: Visitor in the afternoon, met with Soc. Linda SCHUMACHER and patient. Naa Barbosa RN 03/03/2010 3:35 PM * Ascencion Bray MD - 03/03/2010 1040 EDT Asked to follow-up on this patient for ear pain overnight. Patient complains of difficulty sleeping when lying on both sides secondary to pain in his right ear and swishing fluid feeling in his right ear. He stopped using polymixin, neosporin, and hydrocortisone (Cortisporin) drops late last week because otitis externa in right ear had resolved. BP 111/56 Pulse 76 Temp 36 ??C (96.8 ??F) Resp 14 Ht 1.778 m (5' 10) Wt 104.327 kg (230 lb) SpO2 96% Exam: Right ear: Exam limited a bit by patient's tenderness to deep insertion of otoscope in right ear. However, no tenderness whn pulling on the pinna. A clearish (not quite waxy) liquid seen in the external canal. Difficult to assess eardrum but no erythema appreciated. Left ear: Exam limited by hair/wax in canal but no abnormalities noted. A/P: Patient has chronic complaints of ear infections and pain and was recently treated for otitis externa. Ear pain had resolved last week but now the patient describes pain and a sensation that is consistent with fluid in his middle ear. Given the chronicity of his ear problems, he might have problems with eustachian tube clogging. We will start him on fluticasone 2 sprays daily for 5 days to se e his if this helps to keep his eustachian tubes from clogging and help with fluid drainage and fluid reduction. No antibiotics needed at this point. Will follow as needed. Ascencion Bray MD * Jenny Sood - 03/03/2010 1035 EDT Open ArtS/O: Patient attended open art for 60min. 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 Pt reported I have done 10 posters. Pt joined in various conversations around traveling and yamila with another pt. Pt smiling and focussed on finishing his picture. Pt offered the finished ones to others.Pt reported I haven't slept well last night, and I am little anxious about fridays court. Affectpleasant, being helpful to peers. A. Engaged, calm, focusing well and social. P : Continue to go togroups. * Orlin Shankar - 03/03/2010 0509 EDT Active Multi-Disciplinary problems: POTENTIAL FOR HARM TO SELF OR OTHERS [67042] (02/17/10) ANXIETY [37259] (02/17/10) DEFENSIVE COPING [92087] (02/17/10) ALTERATION IN SLEEP [11736] (02/22/10) Data: Pt up reading , asleep after 0200, no suicidal gesturesl Action:routine observations Response:cont to observe and note Orlin Shankar RN 03/03/2010 5:09 AM * Marcelle Crum RN - 03/02/2010 1802 EDT Active Multi-Disciplinary problems: POTENTIAL FOR HARM TO SELF OR OTHERS [53742] (02/17/10) ANXIETY [20593] (02/17/10) DEFENSIVE COPING [33674] (02/17/10) ALTERATION IN SLEEP [31512] (02/22/10) Patient Active Problem List Diagnoses Code ??? Major depression 296.20BE ??? Otitis externa 380.10F Data: Up and out of his room spending his time watching television and doing a puzzle. Avoids eye contact and responds to nursing staff with negative, angry and resentful remarks. Admits to passive si but agrees he can stay safe on the unit. Denies HI. Action: Activity therapist located a series of S tapes of the civil war Doug stated he would beinterested in watching and patient was notified that these would be kept at the nurse's station [facility]. Offered 1:1 support. On routine checks. Assess mood, affect and safety. Response: Dismissive with staff, avoids eye contact. No self harm noted. Marcelle Crum RN 03/02/2010 6:02 PM * Carey Arambula - 03/02/2010 1438 EDT Garden Group: S/O: Pt initially sitting off by himself. When I approached him , he spoke about feeling left out b/c his main event was coming up and no one was going to be there for him. I asked if he had any one he could call, he said he didn't have any friends any more. Pt spoke some about the trial. He's not sure what is going to happen, but he is very distrustful of the legal system and doesn't expect anything good to happen. Pt asked for some more posters b/c it's the only thing that is helping him. Pt on his own, mentioned the [employer] library and so we switched over to talking about what kind of books he likes. 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 A: pt initially feeling sorry for himself, feeling depressed, having a hard time of getting caught up in distorted thinking. But able to be distracted by talk of the navy. Affect brightened some by end of group. P: To continue to participate in groups. * Ascencion Peoples MD - 03/02/2010 1157 EDT Physician Weekend Cross Coverage Note Date: 03/02/10 Time: 11:59 Reason for Hospitalization: Suicidality History: Remains Irritable and condescending. Watched same movie multiple times on unit. Exam: Coloring in common area. Speech loud. Mood irritable. Thoughts goal oriented. No SI expressed. Diagnosis/Assessment: Major Depression. Descision Making: Continue present management. Signature: Ascencion Peoples M.D. Pager [phone] * Orlin Shankar - 03/02/2010 0458 EDT Active Multi-Disciplinary problems: POTENTIAL FOR HARM TO SELF OR OTHERS [23341] (02/17/10) ANXIETY [17234] (02/17/10) DEFENSIVE COPING [49388] (02/17/10) ALTERATION IN SLEEP [02735] (02/22/10) Data: Pt asleep all night in bed Action:routine observe Response: cont To observe and note Orlin Shankar RN 03/02/2010 4:58 AM * Marcelle Crum RN - 03/01/2010 7603 EDT Active Multi-Disciplinary problems: POTENTIAL FOR HARM TO SELF OR OTHERS [21641] (02/17/10) ANXIETY [39848] (02/17/10) DEFENSIVE COPING [19422] (02/17/10) ALTERATION IN SLEEP [51626] (02/22/10) Patient Active Problem List Diagnoses Code ??? Major depression 296.20BE ??? Otitis externa 380.10F Data: Up in the TV room and watched for the third evening in a row the movie ([employer]). Blunted, guarded, angry affect, dismissive of staff and avoids eye contact. 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 Action: Offered 1:1 support which is quickly rejected. On routine checks for safety as ordered. Assess mood, affect and safety as needed. Response: Remains in the patient dining room and is watching television. No obvious distress noted at this time. Marcelle Crum RN 03/01/2010 6:56 PM * Ema Joseph - 03/01/2010 1621 EDT Open Art: S/O: Pt attended the art group, picked out tiles and glued them to a trivet while interacting socially with the group. A: Organized, bright affect, social, no rumination re: upcoming court date. P: Continued participation in therapeutic groups. * Ema Joseph - 03/01/2010 1212 EDT Games Group: S/O: Pt excited to play card game with staff and peers. He dealt the cards and remained in a socialmood throughout the game despite being behind after stating a strong desire to win the game. A: Alert, organized, social and friendly with all present. P: Continued participation in therapeutic groups. * Carey Arambula - 03/01/2010 1208 EDT Mindfulness: S/O: Pt took part in the 5 Senses exercise and joined some in discussion about the STOP technique. Pt insightful about how it can help give you a new perspective but he was doubtful about his own ability to call it in to action again mentioning his upcoming court date. Pt did note that a mindfulness activity that does help him is coloring a airline stewardess- it's the only thing that helps distract me. A: Pt engaged, increasing in awareness, some insight, but continues to be hindered by his distorted thinking. Affect though was cedeno and more pleasant. P: To continue to participate in groups; work on combating distorted thinking. * Orlin Shankar - 03/01/2010 0601 EDT Data: Pt awake X 1 @ 0500 Action: Routine observations Responsecont to observe And note Orlin Shankar RN 03/01/2010 6:01 AM * Philip Ferraro RN - 02/28/20102126 EDT Patient Active Problem List Diagnoses Code ??? Major depression 296.20BE ??? Otitis externa 380.10F Active Multi-Disciplinary problems: POTENTIAL FOR HARM TO SELF OR OTHERS [81296] (02/17/10) ANXIETY [48587] (02/17/10) DEFENSIVE COPING [21592] (02/17/10) ALTERATION IN SLEEP [15938] (02/22/10) Data: Received care of patient at 1900. Patient has spent evening in the milieu coloring and watching TV. He is appropriate with peers. While picking out a movie for the evening patient noticed the VHS tapes about the Civil War. He told nursing about his love of history but, other then that he is difficult to engage. His eye contact is poor. No behavioral issues noted. Action: Routine observation, short 1:1 with nursing for support, monitor for safety in environment of care, assess for pain and anxiety, vital signs Response: Patient is coloring in the activity room in no apparent distress. Will continue to monitor and assess. PHILIP HOFF RN 02/28/2010 9:27 PM * Jennifer Watson MD - 02/28/20101923 EDT Inpatient Psychiatry Daily Progress Note Admit Date: 02/15/2010 Hospital day: LOS: 13 days Date of Service: 02/28/2010 Legal Status: Legal status: Voluntary Observation Level: Observation / visual check: Routine (Q hour day / chema, Q 1/2 hour night) Locus/Risk of Harm: Current locus of harm: 3 Subjective / Chief Complaint: suicidal ideation of hanging Clinical Update: Pt agreeing to stay until 03/07 but would like us to confirm that he has a court date. Also, wants to have calls from his stepdaughter Chacho and his cuff folder blocked. Angry with them since they think he is too much. Denies SI. Slept well off medications. Want to have his nails clipped. Past family/social history: Unchanged Current hospital medications Medication Route Frequency ??? zolpidem (AMBIEN) tablet 5 mg Oral AT BEDTIME PRN ??? ibuprofen (MOTRIN) tablet 600 mg Oral Q6H PRN ??? acetaminophen (TYLENOL) tablet 650 mg Oral Q4H PRN ??? olanzapine (ZYPREXA) tablet 5 mg Oral BID PRN Objective / Physical Exam: Mental Status Exam: Tall muscular middle-aged man with abdominal girth. Stands in far corner of his room with occasional eye contact, then sits towards the side wall. Affect is milldy dysphoric/sullen. Speech is wnl. TPis coherent. TC is with [id number] thinking and low self-esteem. No psychosis. Insight: fair Judgment: currently good. Cogn: intact BP 122/70 Pulse 68 Temp(Src) 36 ??C (96.8 ??F) (Tympanic) Resp 20 Ht 1.778 m (5' 10) Wt 104.327 kg (230 lb) SpO2 97% Assessment/Problems: Pt stable and cooperative on unit. Periodically angered by situation with supports and the upcomingcourt date, but able to distract himself via social interactions. Sad that other patients he had befriended are leaving. Reasonable requests today. Hope he will be stable this weekend (I expect so) and that his court date will not be postponed so that he can get past this hurtle which he is catastrophizing. Plan: - Maintain MIKHAIL 4 - Continue zolpidem to 5 mg PO QHS PRN sleep (pt not taking, which is good) - Awaiting court date: SW to check on this. Outpatient therapy appt has been rescheduled -Nursing to cut fingernails and internal medicine team to cut toenails. -Restrict calls from family (Chacho and Robin) and cuff folder. Discharge Plan: Currently for 03/07. JENNIFER WATSON MD 02/28/2010 7:24 PM I have seen and examined the patient. I personally spent a total of 25 minutes in direct floor time on this patient, of which 15 minutes of this time was spent in the coordination of care with patient and staff. JENNIFER WATSON MD Attending, Inpatient Psychiatry, [facility] * Marcelle Crum RN - 02/28/2010 1823 EDT Active Multi-Disciplinary problems: POTENTIAL FOR HARM TO SELF OR OTHERS [59625] (02/17/10) ANXIETY [65722] (02/17/10) DEFENSIVE COPING [85734] (02/17/10) ALTERATION IN SLEEP [07231] (02/22/10) Patient Active Problem List Diagnoses Code ??? Major depression 296.20BE ??? Otitis externa 380.10F Data: Up and out of his room but remains with flat, restricted affect with an angry tone and avoidseye contact. He was noted to be standing by the nursing station at the change of shift earlier and made a comment that he was waiting for staff to give him the movie [employer] and made some comment that staff were ignoring him about his request but this seemed according to staff to not be based on reality as he apparently didn't make his need known to them and was standing waiting for his need to be met without asking for the movie. He spent the rest of the early evening watching the movie while coloring. Denies SI and denies HI. No complaints of pain. Action: Offered 1:1 support. Assess mood, safety as needed. Response: Remains aloof, not wanting to meet with nursing staff for 1:1. Still watching the [employer] movie, (patient also had watched this movie all last evening). Marcelle Crum RN 02/28/2010 6:23 PM * Ruthann Marcus - 02/28/2010 1540 EDT Social Work Progress Note Intervention/Service: Discharge planning Met with pt briefly in the activities room. He requested that the court be contacted to confirm hishearing scheduled for March 07 @ 2:30 pm. He also asked that Ascenc[facility] @ [facility] be contacted to cancel his appt scheduled for this Wednesday and to schedule another appt for next Wednesday. P/C to [facility] and arranged a f/u appt for March 07 @ 11 am. P/C to [facility][1] Court to confirm court hearing for next Wednesday. It was also confirmed that pt has been deemed to be ineligible for a public policy coordinator. 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 Pt was mostly quiet, focused on his airline stewardess, but whenex pt came in to say a quick hello, pt brightened up considerably and joked around. After ex pt left, he became quiet again. Pt did not make any statements about his court date. A: Pt engaged, using art as a means to distract. More withdrawn socially. P: To continue to participate in groups. * Ascencion Peoples MD - 02/28/2010 1029 EDT Physician Weekend Cross Coverage Note Date: 03/01/10 Time: 12:30 Reason for Hospitalization: Suicidality History: Aloof with staff. Irritable but not aggressive today and did not want to talk with coverage team. Exam: Ambulating on unit and playing cards. Speech regular. Mood irritable. Thoughts goal oriented.No SI expressed. Diagnosis/Assessment: Major Depression. Descision Making: Continue present management. Signature: Ascencion Peoples M.D. Pager [phone] * Lilly Haro - 02/28/2010 0640 EDT Active Multi-Disciplinary problems: POTENTIAL FOR HARM TO SELF OR OTHERS [73059] (02/17/10) ANXIETY [75148] (02/17/10) DEFENSIVE COPING [21586] (02/17/10) ALTERATION IN SLEEP [17103] (02/22/10) Data: pt sleeping after midnight. Appeared to sleep all night. Awake at 0600 Action: monitored on routine observations Response: pt awake in room. No signs of distress. Will continue to monitor Lilly Haro RN 02/28/2010 6:37 AM * Heather Hill RN - 02/27/2010 2231 EDT Active Multi-Disciplinary problems: POTENTIAL FOR HARM TO SELF OR OTHERS [48211] (02/17/10) ANXIETY [97715] (02/17/10) DEFENSIVE COPING [01375] (02/17/10) ALTERATION IN SLEEP [38168] (02/22/10) Data: Pt requests movie and is agitated with staff saying the the last shift took movie away from him. He is avoidant of staff and does not engage with RN but is social with peers the entire shift playing games and watching movie with others. He went to [employer] group and was excited to play Classting with group. He is calm and behavior is in good control this shift. No acute distress observed. Action: monitor Response: pt stable Heather Hill RN 02/27/2010 10:32 PM * Ema Joseph - 02/27/2010 193 EDT Games Group: S/O: Pt awaiting beginning of [employer] group and reported he had been shuffling the cards for half an hour. Pt played Skip Eren with this blog writer and a peer. Pt social, enjoying playing the game and makingjokes. Pt made a clear effort to have a positive social interaction with a male peer (JN) that he had a tense interaction with previously (not today) on the unit. Pt reported that he will be staying here until the morning of his court date because he has nowhere else to go. A: Alert, patching up a relationship with a male peer by initiating a positive social interaction. Organized and social. P: Continued participation in therapeutic groups. * Marta Mendez - 02/27/2010 1642 EDT S/O Pt attended the Cognitive Group and participated in the activity of choosing a thought changingcard and developing a rational response to an automatic thought. Pt able to identify some ways to focus on other things beside the court date. A/ inc cog skills, inc participation, social, broader affect. P/ to continue to participate in groups. * Jennifer Watson MD - 02/27/2010 1631 EDT Inpatient Psychiatry Daily Progress Note Admit Date: 02/15/2010 Hospital day: LOS: 12 days Date of Service: 02/27/2010 Legal Status: Legal status: Voluntary Observation Level: Observation / visual check: Routine (Q hour day / chema, Q 1/2 hour night) Locus/Risk of Harm: Current locus of harm: 3 Subjective / Chief Complaint: Passive suicidality Clinical Update: Mr. Smith continues to do well on the inpatient unit, making only sporadic passively suicidal statements. He has agreed to remain on the inpatient unit for the time being, possibly until his [address] date. He participates in activities throughout the day. When asked about suicide, he says ask me again next -- notable as Wednesday is the 16th. He also states today he doesn't want anyoneto have access to his info, because he wants to cut off the people who he states have neglected himhere (Chacho, his cuff folder). Appeared to be enjoying a movie playing in the room. Was coloring diligently throughout interview. Past family/social history: Unchanged Current hospital medications Medication Route Frequency ??? zolpidem (AMBIEN) tablet 5 mg Oral AT BEDTIME PRN ??? ibuprofen (MOTRIN) tablet 600 mg Oral Q6H PRN ??? acetaminophen (TYLENOL) tablet 650 mg Oral Q4H PRN ??? olanzapine (ZYPREXA) tablet 5 mg Oral BID PRN Objective / Physical Exam: Mental Status Exam: Oriented to person, place, time/date and situation Attention: intact Concentration: intact Appearance: appropriate Behavior: Cooperative Speech: Normal Psychomotor activity: Normal Gait: Steady Mood: Euthymic Affect: congruent with mood Thought process: Goal directed Thought content: Intact Perceptual disturbances: No hallucinations Suicidality: No suicidal thoughts Homicidality: No homicidal thoughts Insight: fair Judgement: fair Language: normal Fund of knowledge: Digital Asset Manager of education level Memory: Intact BP 122/70 Pulse 68 Temp(Src) 36 ??C (96.8 ??F) (Tympanic) Resp 20 Ht 1.778 m (5' 10) Wt 104.327 kg (230 lb) SpO2 97% Assessment/Problems: See previous note for full assessment. In brief, Mr. Smith has been more effective in terms of controlling his anger, at least in the short term. His symptoms of depression have improved considerably with the support and socialization onthe unit. He feels snubbed and is hurt by the fact that nobody is taking his calls and nobody has come to visit. He shows good insight into his situation and has chosen to bear staying here than leave without a solid plan. Helping him with sleep and development of coping skills will be important going forward. He is likely to become increasingly emotionally friable as the 16th approaches. Plan: - Maintain MIKHAIL 4 - Continue zolpidem to 5 mg PO QHS PRN sleep - Working on: being safe on the unit, feeling safe after discharge, talking to family and perhaps arranging a visit/chance to go outside and smoke. Discharge Plan: Currently for 03/07. Chaz Nixon M.D. Psychiatry PGY-1 [id number] Chaz Nixon MD 02/27/2010 4:31 PM I have seen and examined the patient. I agree with the findings and plan of care as documented in the resident's note with my edits indicated in blue. I personally spent a total of 35 minutes in direct floor time on this patient, of which 20 minutes of this time was spent in the coordination of care with patient and staff. JENNIFER WATSON MD Attending, Inpatient Psychiatry, [facility] * Jewels Cardenas RN - 02/27/2010 1500 EDT Active Multi-Disciplinary problems: POTENTIAL FOR HARM TO SELF OR OTHERS [39623] (02/17/10) ANXIETY [22547] (02/17/10) DEFENSIVE COPING [73520] (02/17/10) ALTERATION IN SLEEP [36810] (02/22/10) Data: Pt with flat affect and no eye contact. Avoidant and short. Refused 1:1; pt was hovering during another pts discharge. Pt went to watch Video and when told to bring it back to team station pt abruptly turned and stated he was going to watch it all day without making eye contact. After Peer was d/c pt stormed down the matias and then on phone stated I'd be better off Action: Off 1:1 multiple times; routine obs. Response: Pt refused 1:1 difficult to engage. Pt appears to have been upset/saddened by peers d/c but expressed that as anger Pt remained in control with no outbursts. At start of shift another pt was accusing him of stealing and was acting threatening towards Doug. Pt appropriately walked away. Pt has remained safe no self harm behaviors. Pt Jewels Cardenas RN 02/27/2010 3:00 PM * Ema Joseph - 02/27/2010 1445 EDT Grounding Skills: S/O: Pt attended full hour of the group, participated in a group discussion re: sensory/physical and soothing grounding. Pt made analogies between himself and a guerrero ship and himself and a volcano.Pt shared frustration and negative thinking re: upcoming court date. Pt received direct feedback from peers re: needing to have the best attitude possible when going to his upcoming court appearance.Pt identified coloring and playing cards as coping skills/grounding techniques he uses. A: [place], negative thinking, engaged in some grounding skills during the group, sardonic laughter at times. P: Continued participation in therapeutic groups. * Marta Mendez - 02/27/2010 1248 EDT S/O Pt attended the Writing group and participated some in the activity and shared his writing withthe group. Pt was asked to set his goals for the day, week and for care home. Pt stated that he couldn't think of any goals because of his court date coming up on Wednesday. Pt said his good bye to a peer who was being discharged and the peer asked him to sign a stuffed animal. Doug refused saying that he was not worthy. After patients told him that they appreciated him and that they thought he was worthy he did sign it. A/ engaged, anxious, some participation. P/ to continue to participate in groups. * Daksha Tilmlan RN - 02/27/2010 0624 EDT Active Multi-Disciplinary problems: POTENTIAL FOR HARM TO SELF OR OTHERS [49697] (02/17/10) ANXIETY [08810] (02/17/10) DEFENSIVE COPING [99992] (02/17/10) ALTERATION IN SLEEP [87612] (02/22/10) Data: Pt slept well until 0500. Pt slept for total of 6 hours on noc. No c/o pain or discomfort. Action: Maintain on routine observation. Response: Continue to monitor. Daksha Tillman RN 02/27/2010 6:24 AM * Job Hurd - 02/26/2010 1845 EDT Active Multi-Disciplinary problems: POTENTIAL FOR HARM TO SELF OR OTHERS [86324] (02/17/10) ANXIETY [35801] (02/17/10) DEFENSIVE COPING [16562] (02/17/10) ALTERATION IN SLEEP [27026] (02/22/10) Data: Pt socialized with peers all evening, watched a movie. Went to group and Talked of needs for support. Action: Support gains in activity and socialization. Help to problem solve social needs, Response: Seems in good spirits with some real concerns about maintaining self and needs for a network for aftercare. . Job Hurd RN 02/26/2010 6:45 PM * Ema Joseph - 02/26/2010 1653 EDT Relapse Prevention: S/O: Pt attended group, talked about possibly changing his mind re: d/c on Wednesday and that he mightwant to stay here longer because he really has no supports to rely on in the community. A: Alert, realizing how little support he has outside of the hospital. P: Continued participation in therapeutic groups. FYI to Perlita Carreon, [employer]. * Sofiya Oliavrez - 02/26/2010 1443 EDT Active Multi-Disciplinary problems: POTENTIAL FOR HARM TO SELF OR OTHERS [22726] (02/17/10) ANXIETY [66864] (02/17/10) DEFENSIVE COPING [67674] (02/17/10) ALTERATION IN SLEEP [86445] (02/22/10) Data: Pt social in the milieu with staff and peers - smiling, laughing, engaged. Participated in groups, worked on art projects throughout the day. Gamey around thoughts of harm to self and others, says it will all depend on the outcome of d-day before he decides about that. He says he would liketo be discharged tomorrow so he can go to [place]. Action: Assess safety. Assess pain. Encourage participation in groups and the milieu. Offer 1:1 support. Response: Pt remained safe on the unit. Behavior remained in control. Sofiya Olivarez RN 02/26/2010 2:44 PM * Jennifer Watson MD - 02/26/2010 1350 EDT Inpatient Psychiatry Daily Progress Note Admit Date: 02/15/2010 Hospital day: LOS: 11 days Date of Service: 02/26/2010 Legal Status: Legal status: Voluntary Observation Level: Observation / visual check: Routine (Q hour day / chema, Q 1/2 hour night) Locus/Risk of Harm: Current locus of harm: 3 Subjective / Chief Complaint: suicidal ideation with plan of hanging by a noose Clinical Update: Pt settled down considerably since our visit with him yesterday. Decided to stay until later this week due to the heat and other factors. Has had full range of affect on unit, cooperative, polite and not hostile or threatening. No suicidal comments. Today pt says he doesn't know what will happen in court, but he is not currently suicidal. 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 Accepted that I could compose a note on his behalf to the court. Accepting of a cab voucher to [place] to get his bike. Told me that the heat is not daunting to him: he crossed a desert in a pickup with no AC in 110 degree weather in [place]. Slept off all psychotropics last night after 1AM. Current hospital medications Medication Route Frequency ??? zolpidem (AMBIEN) tablet 5 mg Oral AT BEDTIME PRN ??? ibuprofen (MOTRIN) tablet 600 mg Oral Q6H PRN ??? acetaminophen (TYLENOL) tablet 650 mg Oral Q4H PRN ??? olanzapine (ZYPREXA) tablet 5 mg Oral BID PRN MSE: Pt cooperative but remains standing during interview. Smiles occasionally. Talks in metaphors and sometimes in challenging ways, what do you THINK is going to happen?. TP is coherent. No AH, VH, or delusional thinking. Cogn: grossly intact. Assessment/Problems: This is a 44 YOM with a history of three recent psychiatric hospitalizations, some involving in-facility suicide attempts. He has known intermittant explosive disorder and is currently showing severecharacter pathology in the hospital setting (power-struggles with staff, ambivalent/testing behaviors such as requesting to leave after threatening suicide and getting angry at the actions taken by staff in response to his provocative behaviors). The team decision to allow an AMA discharge but encouraging him to stay appears to be working as ptsettled down and is cooperative. Plan: -Continue Zolpidem to 5 mg PO QHS PRN sleep (pt elected not to take it last night) -Routine observation - Consider discharge after heat wave passes. Snf beds are available in [place] and pt now accepting of a cab voucher. I personally spent a total of 25 minutes in direct floor time on this patient, of which 15 minutes of this time was spent in counseling the patient about the circumstances of his legal case, his discharge, and discussing the coordination of care with patient and staff. JENNIFER WATSON MD Attending, Inpatient Psychiatry, [facility] * Jenny Sood - 02/26/2010 1017 EDT Open ArtS/O: Patient attended open art for 60min. Pt continue to work on his art, pt stated I have done 7 of these colored posters. Pt joined in various conversations, while eating about 5-6 chocolate ice creams. Affect pleasant, being helpful to peers. A. Engaged, calm, focusing well and social. P:Attend the groups, * Orlin Shankar - 02/26/2010 0528 EDT Active Multi-Disciplinary problems: POTENTIAL FOR HARM TO SELF OR OTHERS [75158] (02/17/10) ANXIETY [28827] (02/17/10) DEFENSIVE COPING [30335] (02/17/10) ALTERATION IN SLEEP [01364] (02/22/10) Data: Pt asleep after 0030 all night , no suicide gestures Action:routine observations Response:cont to observe and note Orlin Shankar RN 02/26/2010 5:29 AM * Job Hurd - 02/25/2010 9568 EDT Active Multi-Disciplinary problems: POTENTIAL FOR HARM TO SELF OR OTHERS [21206] (02/17/10) ANXIETY [82823] (02/17/10) DEFENSIVE COPING [38911] (02/17/10) ALTERATION IN SLEEP [94140] (02/22/10) Data: Pt socialized with peers all evening, watched a movie. Action: Support gains in activity and socialization. Response: Seems in good spirits. Job Hurd RN 02/25/2010 10:34 PM * Jenny Sood - 02/25/2010 1906 EDT S/O: Pt attended the Music Group for 60 min. Pt stated you don't want to hear me sing. Another ptstated you have a great voice , pt smiled and said I am singing low. Pt chose songs and fully participated in singing the songs. A/ engaged, at times supportive to another pt. improved mood. P/: Tocontinue to go to therapeutic groups. * Haley Carreon - 02/25/2010 1802 EDT Social Work Progress Note Intervention/Service: Coordination of care, Discharge planning and On-going assessment 1. Met with Doug with Attending this am. 2. Spoke at length with Chacho, 's daughter with whom he had been staying. She remains definite he cannot return there. She believes his cuff folder, also overwhelmed by Doug, is trying to find some temporary place. She may try to visit tomorrow. 3. Spoke at length with therapist [facility]. Provided him with details which led to hospitalization and hospital course. He is very concerned about Doug. They may be able to offer him a home intervention bed, if he will accept. Ascencion understands that we would accept Doug back if needed. He will see Doug on 03/03. This planned in hopes Doug would remain in hospital a few more days. 4. Took Doug on break off unit so that he could understand how opresively warm weather is. While he minimized the challenge the heat would be, he said he would call his [employer] Rep and see if he could stay at the [facility] days. He seems to have decided that he cannot approach his employer about getting his job back until after the hearing on the domestic violence charge. As we walked and talked he spoke about leaving later in the week which I supported as a good plan. 5. Called the senior living in [place]. As of today they do have beds. * Ascencion Bray MD - 02/25/2010 1757 EDT Asked to follow-up on pain complaints of ear pain. Patient has been treated with neomycin, polymixin, hydrocortisone drops for otitis externa of the right ear while in hospital. He complained of ear pain for a few minutes earlier this morning. He does not complain of ear pain currently. Complains of decreased hearing in right ear, although this is not a new problem. Exam: Right ear is not tender when the pinna is pulled on. No redness or signs of inflammation in the canal. Eardrum is pearly white and appears intact. Gross hearing to right ear is reduced compared with the left ear rubbing of fingers near the ear. On the right side almost needed to snap fingers for patient to hear Assessment: Patient with resolving otitis externa of right ear. Exam is normal and pain no longer is complaining of pain. No tenderness, which is noticeable compared with earlier exams. His complaints of hearing inability are not new and might be attributable to chronic ear infections. Patient is close to discharge. Plan: 1. He should continue the ear drops until D/C, but no need to continue after that. 2. Patient should get hearing test performed as an outpatient. * Ema Joseph - 02/25/2010 1701 EDT Focus Group: S/O: Pt attended the focus group, allowed this blog writer to ask him questions and write his answers down. Pt shared that he went outside with his social service coordinator today and had a cigarette. Pt seemed pleased by this, smiling, and stating: at least I won one guerrero today! Pt listened quietly as peers shared re: suicidal urges. A: Alert, in a positive mood, future-oriented stating he agreed to remain on this unit until [place], at which point he will discharge himself because he has an appointment on Wednesday elsewhere. P: Continued participation in thearpeutic groups. * Jennifer Watson MD - 02/25/2010 1630 EDT Inpatient Psychiatry Daily Progress Note Admit Date: 02/15/2010 Hospital day: LOS: 10 days Date of Service: 02/25/2010 Legal Status: Legal status: Voluntary Observation Level: Observation / visual check: Routine (Q hour day / chema, Q 1/2 hour night) Locus/Risk of Harm: Current locus of harm: 3 Subjective / Chief Complaint: suicidal ideation with plan of hanging by a noose Clinical Update: Pt escalated this weekend, especially on Wednesday when he was placed on 1:1 for suicidal threats. This AM he is angry and sits down to talk with SW and attending reluctantly (would have preferred standing). Body posture is angry and often taunts the interviewer's question with what do you THINK would happen when..... With limits placed and lack of taking his bait to be combatative, the interview went well. When asked about suicidal ideation he said he is not currently suicidal. Doesn't understand why he was placed on it and denies making suicidal statements yesterday. Tends to want to focus his anger on the resident. Says he doesn't know what will happen in the near future if he is released but, whenpushed, says he can visualize going to court and not killing himself. We then told him that he could be released today but that we would recommend he stay until at least (given the weather-- a record heat wave). We would prefer he stay until his court date butwe knew that he might not be able to handle doing that. We also emphasized that if he was discharged, he could return at anytime for SI. He was refusing transport and a senior living bed (we offered to call [facility] to see if there was one). We indicated we would do those things regardless. Also, we gave him an opportunity to go outside on a break with SW to experience the heat since he is considering being discharged into it without housing. Told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 otitis media Major depression Major depressive disorder, single episode, unspecified Otitis externa Infective otitis externa, unspecified documented in this encounter Administered Medications Inactive Administered Medications - up to 3 most recent administrations Medication Order MAR Action Action Date Dose Rate Site acetaminophen (TYLENOL) tablet 650 mg 650 mg, oral, EVERY 4 HOURS PRN, Starting on 02/15/10 at 2308, Until Wed03/07/10 at 1217, Pain, Routine Given 03/03/2010 17:14 EDT 650 mg Given 02/17/2010 22:40 EDT 650 mg buPROPion (WELLBUTRIN XL) XL tablet 300 mg 300 mg, oral, DAILY, First dose on 02/16/10 at 0900, Until Discontinued, Routine Given 02/19/2010 9:00 EDT 300 mg Given 02/18/2010 9:00 EDT 300 mg Given 02/17/2010 9:00 EDT 300 mg fluticasone (FLONASE) nasal spray 2 [place] 2 [place], nasal, DAILY, 5 doses, First dose on 03/03/10 at 1100, Last dose on Wed03/07/10 at 0900, Routine Given 03/03/2010 11:59 EDT 2 Sprays ibuprofen (MOTRIN) tablet 600 mg 600 mg, oral, EVERY 6 HOURS PRN, Starting on 02/16/10 at 1120, Until Wed03/07/10 at 1217, Pain, Routine Given 03/04/2010 19:04 EDT 600 mg Given 03/04/2010 4:06 EDT 600 mg Given 02/23/2010 17:00 EDT 600 mg lorazepam (ATIVAN) tablet 1 mg 1 mg, oral, Once (Without Time Specified), 1 dose, Starting on Cat 02/20/10 at 2230, Until Cat 02/20/10 at 2230, Routine Given 02/20/2010 22:30 EDT 1 mg lorazepam (ATIVAN) tablet 2 mg 2 mg, oral, AT BEDTIME, First dose on 02/15/10 at 2330, Until Discontinued, Routine Given 02/18/2010 21:00 EDT 2 mg Given 02/17/2010 22:48 EDT 2 mg Given 02/16/2010 21:00 EDT 2 mg vogyjkmm-zdobdmhza-wkihrwqesoztyn (CORTISPORIN) 3.5-10,000-1 mg-unit/mL-% otic solution 4 Drop 4 Drop, right ear, 4 TIMES DAILY, First dose on 02/16/10 at 1200, Until Discontinued, Routine Given 02/25/2010 21:00 EDT 4 Drops Given 02/25/2010 17:00 EDT 4 Drops Given 02/25/2010 12:00 EDT 4 Drops olanzapine (ZYPREXA) tablet 5 mg 5 mg, oral, 2 TIMES DAILY PRN, Starting on 02/15/10 at 2310, Until Wed03/07/10 at 1217, Agitation, Routine Given 02/17/2010 19:21 EDT 5 mg Given 02/16/2010 9:40 EDT 5 mg zolpidem (AMBIEN) tablet 10 mg 10 mg, oral, AT BEDTIME PRN, Starting on 02/15/10 at 2247, Until Cat 02/20/10 at 1208, Sleep, Routine Given 02/17/2010 22:48 EDT 10 mg Given 02/15/2010 23:45 EDT 10 mg zolpidem (AMBIEN) tablet 5 mg 5 mg, oral, AT BEDTIME PRN, Starting on Cat 02/20/10 at 1208, Until Wed03/07/10 at 1217, Sleep, Routine Given 0 2:08 EDT 5 mg documented in this encounter Discontinued Medications Medication Sig Discontinue Reason Start Date End Da te citalopram (CELEXA) 40 mg tablet Take 1 Tab by mouth daily. 01/10/2010 03/07/2010 buPROPion (WELLBUTRIN XL) 300 mg XL tablet Take 300 mg by mouth daily. 03/07/2010 zolpidem (AMBIEN) 5 mg tablet Take 10 mg by mouth at bedtime as needed for Sleep. 03/07/2010 lorazepam (ATIVAN) 2 mg Tab Take 2 mg by mouth at bedtime. 03/07/2010 documented as of this encounter Historical Medications * This list may reflect changes made after this encounter. lorazepam (ATIVAN) 2 mg Tab Take 2 mg by mouth at bedtime. 03/07/2010 zolpidem (AMBIEN) 5 mg tablet Take 10 mg by mouth at bedtime as needed for Sleep. 03/07/2010 buPROPion (WELLBUTRIN XL) 300 mg XL tablet Take 300 mg by mouth daily. 03/07/2010 added in this encounter Active and Recently Administered Medications Orders Diet Count Last Ordered Date First Orde red Date DIET REGULAR 1 02/15/2010 Behavioral [facility] Services Count Last Ordered D ate First Ordered Date OBSERVATION LEVEL 1 03/06/2010 RESTRICTIONS 1 03/03/2010 LOCUS RISK OF HARM 1 02/25/2010 VOLUNTARY/INVOLUNTARY 1 02/15/2010 Admission Count Last Ordered Date First Orde red Date NOTIFY PPS OF DISCHARGE COMPLETE 1 03/07/20 10 ADMIT TO INPATIENT 1 02/15/2010 PPS NOTIFICATION OF PATIENT ARRIVAL ON UNIT 1 02/15/2010 TEACHING SERVICE 1 02/15/2010 Transfer Count Last Ordered Date First Orde red Date CHANGE ATTENDING TO: 1 02/17/2010 Discharge Count Last Ordered Date First Orde red Date DISCHARGE PATIENT 1 03/07/2010 documented in this encounter Care Teams Watch Mechanic Relationship Specialty Start Date End Date Wanda Garnett NP CNM [address] [place] [address], [address] [place] [id number] PCP - General 12/23/09 03/20/10 documented as of this encounter
--- OUTSIDE RECORDS SUMMARY | 2024-08-03 10:42 | XMS_ITS | Encounter Summary ---
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 [facility] Blood specimen (specimen) 10/09/2010 1:07 EST 10/09/2010 1:28 EST Ascencion Hinson MD CHEMISTRY & BLOOD GAS ORDERA BLES Final Result Performing Organization Address [facility] de Phone Number [facility] [address] [place] [address] * BUN (10/09/2010 1:07 EST) BUN 18 10 - 26 mg/dl [facility] Blood specimen (specimen) 10/09/2010 1:07 EST 10/09/2010 1:28 EST Ascencion Hinson MD CHEMISTRY & BLOOD GAS ORDERA BLES Final Result Performing Organization Address [facility] de Phone Number [facility] [address] [place] [address] * ELECTROLYTES (10/09/2010 1:07 EST) Sodium 142 136 - 145 mEq/L [facility] Potassium 4.1 3.5 - 5.0 mEq/L [facility] Chloride 103 96 - 110 mEq/L [facility] CO2 29 24 - 32 mEq/L [facility] Blood specimen (specimen) 10/09/2010 1:07 EST 10/09/2010 1:28 EST Ascencion Hinson MD CHEMISTRY & BLOOD GAS ORDERA BLES Final Result Performing Organization Address [facility] de Phone Number [facility] [address] [place] [address] * SCREENING GLUCOSE (10/09/2010 1:07 EST) Glucose, Screening 86 70 - 100 mg/dl [facility] Blood specimen (specimen) 10/09/2010 1:07 EST 10/09/2010 1:28 EST us Ascencion Hinson MD CHEMISTRY & BLOOD GAS ORDERA BLES Final Result [facility] [address] [place] [address] documented in this encounter Visit Diagnoses Diagnosis Suicidal ideation- Primary Major depression Major depressive disorder, single episode, unspecified documented in this encounter Administered Medications Inactive Administered Medications - up to 3 most recent administrations Medication Order MAR Action Action Date Dose Rate Site lorazepam (ATIVAN) tablet 1 mg 1 mg, oral, EVERY 4 HOURS PRN, Starting on Cat 10/09/10 at 0024, Until Cat 10/16/10 at 1741, Anxiety, Other, agitation, Routine Given 10/11/2010 16:09 EST 1 mg Given 10/09/2010 16:11 EST 1 mg mirtazapine (REMERON) tablet 15 mg 15 mg, oral, AT BEDTIME, First dose on Wed10/10/10 at 2100, Until Discontinued, Routine Given 10/13/2010 21:11 EST 1 5 mg mirtazapine (REMERON) tablet 30 mg 30 mg, oral, AT BEDTIME, First dose (after last modification) on Wed10/14/10 at 2100, Until Discontinued, Routine Given 10/16/2010 21:51 EST 30 mg documented in this encounter Active and Recently Administered Medications Orders Medications Ordered That Ulysses ht Not Have Been Administered Count Last Ordered Date First Ordered Date lorazepam (ATIVAN) tablet 0.5 mg 2 10/17/19 11 10/16/2010 lorazepam (ATIVAN) tablet 0.25 mg 1 011 nicotine (NICOTROL) 10 mg in haler 1 Inhaler 1 10/10/2010 nicotine inhaler (delivery device) 1 2010 acetaminophen (TYLENOL) tablet 650 mg 1 aluminum & magnesium hydroxi de-simethicone (MYLANTA-DS) 400-400-40 mg/5 mL suspension 30 mL 1 10/09/2010 zolpidem (AMBIEN) tablet 10 mg 1 10/09/2010 Admission Count Last Ordered Date First Orde red Date NOTIFY PPS OF DISCHARGE COMPLETE 1 10/22/19 11 ADMIT TO INPATIENT 2 10/09/2010 1 TEACHING SERVICE 1 10/09/2010 PPS NOTIFICATION OF PATIENT ARRIVAL ON UNIT 1 10/08/2010 Transfer Count Last Ordered Date First Orde red Date CHANGE ATTENDING TO: 2 10/21/2010 011 Discharge Count Last Ordered Date First Orde red Date DISCHARGE PATIENT 1 10/21/2010 documented in this encounter Care Teams Boring Machine Operator Relationship Specialty Start Date End Date None, Provider PCP - General 10/08/10 10/14/10 Tiffanie Strickland MD [address] [place] [id number] PCP - General 10/15/10 10/01/14 documented as of this encounter
--- OUTSIDE RECORDS SUMMARY | 2024-08-03 10:42 | XMS_ITS | Encounter Summary ---
Author Organization [facility] Address [address] [place] [address] Care Team Providers Care Clothespin Drier Operator Name Role Phone Tiffanie Strickland MD Primary Care Provider Reason for Visit * Reason Comments Suicidal accompanied by 6 s taff member who states pt came to see her this AM on [facility] and collapsed, vague answers to questions Encounter Details Date Type Department Care Team (Late st Contact Info) Description 11/04/2010 9:37 EDT - 11/04/2010 12:06 EDT Emergency [facility] Emergency Department - Main [address] [address] Maxi Sanchez MD Emergency, MD Jeffery Depression [...] Sign Reading Time Taken Comments Blood Pressure 151/92 11/04/2010 0949 EDT Pulse 73 11/04/2010 0949 EDT Temperature - - Respiratory Rate 16 11/04/2010 0949 EDT Oxygen Saturation 97% 11/04/2010 0949 EDT Inhaled Oxygen Concentration - - Weight 104.3 kg (230 lb) 11/04/2010 0949 EDT Height 177.8 cm (5' 10) 11/04/2010 0949 EDT Body Mass Index 33 11/04/2010 0949 EDT documented in this encounter [...] Everywhere. * DEPRESSION TREATMENT: AFTER YOUR VISIT (CHINESE) documented in this encounter Medications at Time [...] Departure Means Destination Home or Self Care Walk-out Home documented in this encounter Progress Notes * Inpatient, Physician - 11/04/2010 0000 EDT documented in this encounter ED Notes * Brigitte Estrada RN - 11/04/2010 1205 EDT Discharge instructions reviewed with pt with understanding. Belongings returned to pt. To home ambulatory in NAD. * Brigitte Estrada RN - 11/04/2010 1134 EDT Assumed care of pt at this time. Pt meeting with crisis presently. 1:1 sitter present. * Maxi Sanchez MD - 11/04/2010 1000 EDT DOS: 11/04/2010 Chief Complaint Patient presents with ??? Suicidal accompanied by 6 staff member who states pt came to see her this AM on [facility] and collapsed, vague answers to questions The patient is a 45 y.o. male who presents today with Suicidal HPI Comments: 45 her old white male smoker is brought to the emergency department from [address] [facility] unit where he presented himself seeking care. The patient indicates that he has recently lost his home as well as his job and has been living out of his car. He indicates that he has little or no money left and is contemplating hanging himself which he says was scheduled to occur this week. He states that he does not sleep very well but this is due to the police making him move his vehicle. The history is provided by the patient and a caregiver. Suicidal The primary symptoms include dysphoric mood and negative symptoms. The primary symptoms do not include delusions, hallucinations, bizarre behavior, disorganized speech or somatic symptoms. The current episode started 1 to 2 weeks ago. The onset of the illness is precipitated by a stressful event. The degree of incapacity that he is experiencing as a consequence of his illness is severe. Sequelae of the illness include an inabilityto work. Additional symptoms of the illness include feelings of worthlessness. Additional symptoms of the illness do not include no anhedonia, no insomnia, no hypersomnia, no appetite change, no unexpected weight change, no fatigue, no agitation, no psychomotor retardation, no attention impairment,no euphoric mood, no increased goal-directed activity, no flight of ideas, no inflated self-esteem,no decreased need for sleep, no distractible, no poor judgment, no visual change, no headaches, no abdominal pain or no seizures. He admits to suicidal ideas. He does have a plan to commit suicide. He contemplates harming himself. He has not already injured self. He does not contemplate injuring another person. He has not already [...] headaches. Hematological: Negative. Psychiatric/Behavioral: Positive for dysphoric mood. Negative for hallucinations and agitation. Thepatient does not have insomnia. All other [...] Mother ??? Stroke Father Vital Signs Pulse: 73 Resp: 16 SpO2: 97 % SpCO: 6 % BP: 151/92 mmHg O2 Device: None (Room air) Physical Exam [...] His behavior is normal. Thought content normal. 11/04/2010 11:59: The patient has been seen in the emergency department by crisis services and they have offered him community services which he has declined. Crisis does not feel that inpatient treatment will be beneficial and the patient is actually quite vague in stating to them what his intentions are. He will be discharged to followup as an outpatient. Radiology orders: None Procedures ED Course: Discharged to followup as an outpatient. Discharge Prescriptions No Discharge Prescriptions for this patient MDM Number of Diagnoses or Management Options Depression: new, needed workup Diagnosis management comments: 3 Amount and/or Complexity of Data Reviewed Clinical lab tests: ordered and reviewed Decide to obtain previous medical records or to obtain history from someone other than the patient:yes Obtain history from someone other than the patient: yes Review and summarize past medical records: yes Discuss the patient with other providers: yes Independent visualization of images, tracings, or specimens: yes Risk of Complications, Morbidity, and/or Mortality Presenting problems: moderate Diagnostic procedures: moderate Management options: moderate Patient Progress Patient progress: stable 1. Depression (311L) PCP: Tiffanie Strickland Md 11/04/2010 12:28 * Alessandra Stevens, RN - 11/04/2010 0954 EDT Perlita Carreon, SW on [facility] pager # [phone]- States that Crisis can call her if needed, she is well-known to pt documented in this encounter Miscellaneous Notes * Scanned Note-Null - Inpatient, Physician - 11/04/2010 0000 EDT documented in this encounter Plan of Treatment Not on file documented as of this encounter Visit Diagnoses Diagnosis Depression Depressive disorder, not elsewhere classified documented in this encounter Care Teams Clothespin Drier Operator Relationship Specialty Start Date End Date Tiffanie Strickland MD [address] [place] [id number] PCP - General 10/15/10 10/01/14 documented as of this encounter
--- OUTSIDE RECORDS SUMMARY | 2024-08-03 10:42 | XMS_ITS | Encounter Summary ---
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 35.5 ??C (95.9 ??F) Resp 18 SpO2 95% ASSESSMENT: 45 yo man with MDD showing some improvement, with likely decreasing risk. PLAN: As per treatment team. Smooth Giordano MD 11/22/2010 1657 Attending Psychiatrist guidance consultant Pager [phone] * Jenny Sood - 11/21/2010 1619 EDT Games Group: S/O: Pt active group, playing boggle in organized manner. Pt was social with peers andstaff, joking and laughing. Pt at times help other pt with words and how to play the game. A: Pt engaged, organized, Affect was pleasant. P: To continue to go to therapeutic groups. * Rasheed Hatfield (At) - 11/21/2010 1435 EDT WRAP group S/O pt attended group for 60 min and was able to complete the task. Pt was asked to write out triggers and warning signs. A/Pt was withdrawn and inattentive during group. P/ pt will continue attending groups * Ramona Anderson - 11/21/2010 1347 EDT Social Work Progress Note Intervention/Service: Discharge planning I met with Doug around 1:00 PM for about 30 minutes. We discussed the possibility of Doug staying at the [facility] in [place] after discharge. Doug was adamant that it would be wrong for him to stay at a fci because he would be taking away resources from someone who did not even have a car to sleep in. Doug repeatedly refused the idea that he call the fci to find out whether or not he would be taking a spot from someone else, stating, I can't ask for help.... You guys have no idea how hard it is for me to ask for help. I just can't do it. Doug eventually agreed that I could call and inquire in general about whether they had any open beds. I spoke to a staff person at the [facility] ([phone]) who informed me that they havenot been filled to capacity in the recent past, and that someone living in a car is considered appropriate for their fci and would not be displacing another person. He recommended that Doug either show up after 6 PM (and there will likely be space for him) or call to schedule an appointment for an intake. Ramona Anderson 11/21/10 1:58 PM Cosigned by Haley Carreon at 11/21/2010 20:47 EDT * Carey Arambula - 11/21/2010 1232 EDT Open Art: S/O: Pt worked on coloring a log scaler. he was social with peers and staff, joining in various conversations, one being about a potential place to live which he feels guilty about b/c there are other people who need it more b/c he at least has a car he can sleep in and other's don't have that. A: Pt engaged with pleasant affect. Putting his needs behind others. P: To continue to participate in groups. * Vielka Rodriguez MD - 11/21/2010 1119 EDT Inpatient Psychiatry Daily Progress Note 11/21/2010 Admit Date: 11/04/2010 Hospital day: LOS: 17 days Legal Status: Legal status: Voluntary Observation Level: Observation / visual check: Routine (Q hour day / chema, Q 1/2 hour night) Locus/Risk of Harm: Current locus of harm: 3 Reason for Admission/Chief Complaint: SI Clinical Update/24-hour Events: Continues to sleep better with temazepam--up at 6 am today. Says his mood is OK. Smiles when he talks about a book of a sea guerre[place]. Worries about his foster parents (particularly his mother's health). He thinks he might work with Perlita today to call his foster parents and call [employer] about his job. Discusses the results of his neuropsych tests, and initially he seems to use his difficulty with processing speed as an excuse (a major drawback) for his depression and disposition. We clarified that his difficulty might affect the way he initially responds to stress, and that he must learn to step back, take time to process, and learn how to cope appropriately. He acknowledges (and I reinforce) that he has learned to better his control his temper, but now he needs to develop better coping skills to rebound from the bombardment he feels. I reinforced his resiliency to date, and though he doubts whether he an keep it up, he does not seem as hopeless as yesterday. He is somewhat hopeful ab out getting a telephonic case manager, saying that it would be nice to have someone to speak and vent to. No toothache today. Past Family/Social History Update: F/U [facility] appt on 11/28, but no decision about whether he is accepted for services yet. Possible conversation with foster parents today and [employer] about employment. Current facility-administered medications Medication Route Frequency ??? temazepam (RESTORIL) capsule 15 mg Oral QHS ??? ibuprofen (MOTRIN) tablet 400 mg Oral Q6H PRN ? ? chlorhexidine (PERIDEX) 0.12 % solution 15 mL Swish & Spit BID ??? Benzocaine 20 % aerosol spray Oral Q6H PRN ??? fluoxetine (PROZAC) capsule 30 mg Oral DAILY ??? risperidone (RISPERDAL) tablet 1 mg Oral QHS ??? acetaminophen (TYLENOL) tablet 650 mg Oral Q4H PRN ??? nicotine (NICOTROL) 10 mg inhaler 1 Inhaler Inhalation Q2H PRN ??? nicotine inhaler (delivery device) Inhalation PRN Review of Systems: Tooth ache essentially gone. Sleeping better. No bowel complaints offered. Mental Status Exam: Pt is tall, overweight man, poor dentition, wearing red shirt and roman pants. Looks out window frequently but makes eye contact. Sorts cards. Forthcoming, apologizes for being upset the other day--attributed to lack of sleep. Speech: normal RRV. Mood: OK, I guess. Affect: Fairly euthymic, smiles and laughs at times but also has some hopeless statements at times. Still talks about losing his dreams, but also has forward-thinking hopes in calling his parents and looking for work. Denies SI/HI. Insight is fair: Understands his processing speed is slowed and after clarification how this might affect the way he responds to stresses. Knows that he needs to work on coping skills. Judgment: fair--engaging in tx and working more on developing his skills. Can be impulsive but has shown self regulation. Physical Exam: Not performed BP 127/73 Pulse 55 Temp 35.6 ??C (96.1 ??F) Resp 16 SpO2 96% Data Review: Labs: No results found for this or any previous visit (from the past 24 hour(s)). Other studies: N/A Assessment/Formulation: 45 yo man with depression related to psychosocial stressors and difficulties with self esteem and ability to express feelings. Better today compared with yesterday, apologizing for past irritability (attributed to lack of sleep), and showing some understanding of his cognitive distortions. More hopeful and knows that he must develop better coping skills to deal with stressors. Understands that his difficulty with processing speed requires that he take time before (over)reacting to stressors. No med changes for now and discharge potentially next week, still pending his housing options. Diagnosis: Walker I: MDD, recurrent, severe; IED by hx; Nicotine Dependence Walker II: Cluster B Traits, r/o autistic spectrum disorder Walker III: obesity, r/o TBI Plan: -- Continue risperdal 1 mg qHS, fluoxetine 30 mg daily. -- Continue Temazepam 15 mg qhs to help with sleep (good effect thus far). -- Clindamycin completed, continue chlorhexidine mouthwash. -- Encourage continued group attendance to help with coping, improve communication skills, and build self esteem and sense of purpose. -- D/C likely next week after follow-up services and housing options further clarified. The following risk/benefits of treatment were discussed with the patient: No new changes. Discharge Plan: D/C after follow-up services and housing options further clarified and with continued improvement in symptoms (less hopelessness). Likely D/C next week. Ascencion Hinson MD 11/21/2010 11:19 Attending Attestation: I saw and evaluated the patient today. Treatment plan reviewed with the patient and team. I agree with the findings and plan of care as documented in the resident's note. Total time spent directly with patient was 25 minutes of which approximately 18 minutes was spent in counseling (re:challenging distortions/impact of poor self image on relationships ). An minutes was spent in coordination of care with the multidisciplinary team. Total floor time: 40 min. VIELKA RODRIGUEZ MD Attending Psychiatrist [facility] Pager [phone] * Alda Corbin RN - 11/21/2010 0640 EDT Patient Active Problem List Diagnoses Code ??? Major depression 296.20BE ??? Suicidal ideation V62.84 Data: Pt asleep when rec'd for care at 2330. Seemed to sleep better tonight. Action: Pt monitored q30 mins as per routine obs. Response: Pt slept until 06, once awake spent time laying quietly in bed. Not noted to be awake on any checks during the shift until 06. Alda Corbin RN 11/21/2010 6:41 * Kimberly Monaco RN - 11/20/2010 2111 EDT No complaints of pain. Watching television in activity room. Social with peers. Declines hs medications statesIf I take them now I won't be able to sleep. No reports of SI. Speaks of foster mom sick. Expresses desire to be home. Patient took HS medications at 2300; given. * Vielka Rodriguez MD - 11/20/2010 1091 EDT Inpatient Psychiatry Daily Progress Note 11/20/2010 Admit Date: 11/04/2010 Hospital day: LOS: 16 days Legal Status: Legal status: Voluntary Observation Level: Observation / visual check: Routine (Q hour day / chema, Q 1/2 hour night) Locus/Risk of Harm: Current locus of harm: 3 Reason for Admission/Chief Complaint: SI Clinical Update/24-hour Events: Slept better last night with temazepam--up at 5 am. More negative and expressing hopelessness today (though no SI or HI). Wants to leave hospital to enjoy movies and campfires. Provides no good rationale for not calling about his job at [employer], saying he assumes it is no longer available. 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 No toothache today. Results of neuropsych evaluation were briefly discussed--Doug understood and did much affected (not seem upset, distressed, relieved, etc) about results. Past Family/Social History Update: Had [facility] intake meeting today. F/U appt on 11/28, but no decision about whether he is accepted for services. His foster mother still not willing/able to speak with pt (unknown to him). Current facility-administered medications Medication Route Frequency ??? temazepam (RESTORIL) capsule 15 mg Oral QHS ??? ibuprofen (MOTRIN) tablet 400 mg Oral Q6H PRN ? ? chlorhexidine (PERIDEX) 0.12 % solution 15 mL Swish & Spit BID ??? Benzocaine 20 % aerosol spray Oral Q6H PRN ??? fluoxetine (PROZAC) capsule 30 mg Oral DAILY ??? risperidone (RISPERDAL) tablet 1 mg Oral QHS ??? acetaminophen (TYLENOL) tablet 650 mg Oral Q4H PRN ??? nicotine (NICOTROL) 10 mg inhaler 1 Inhaler Inhalation Q2H PRN ??? nicotine inhaler (delivery device) Inhalation PRN Review of Systems: Tooth ache essentially gone. Sleeping better. No bowel complaints offered. Mental Status Exam: Pt is tall, overweight man, poor dentition, wearing red shirt and roman pants. Looks out window frequently but makes eye contact. Forthcoming, but more irritable than usual. Speech: loud when frustrated and irritated, Mood: depressed, hopeless. Affect: Wallowing in self-pity. Dysphoric, irritated, abit labile. Denies SI/HI, but says all is lost. More references to him as sunken battleship today than previous days. Insight: remains limited. Understands to some extent that he has poor coping skills, but seems a bit paralyzed to address it. Unwilling to fully engage in self-introspection. Judgment: poor to fair. Engaging in tx as he can. Can be impulsive but has shown self regulation. Physical Exam: Not performed BP 108/69 Pulse 60 Temp 35.4 ??C (95.7 ??F) Resp 16 SpO2 97% Data Review: Labs: No results found for this or any previous visit (from the past 24 hour(s)). Other studies: N/A Assessment/Formulation: 45 yo man with depression related to psychosocial stressors and difficulties with self esteem and ability to express feelings. Regressed today, with much self pity and hopelessness and no acknowledgment of his need to take action about calling about his potential job. Perhaps disappointed about not being discharged today and anxious about eventual discharge. SW trying to get [facility] services and housing in place before discharge. SW will discuss fci or living with his brother as options. Diagnosis: Walker I: MDD, recurrent, severe; IED by hx; Nicotine Dependence Walker II: Cluster B Traits, r/o autistic spectrum disorder Walker III: r/o TBI Plan: -- Continue risperdal 1 mg qHS, fluoxetine 30 mg daily. Consider increasing fluoxetine to 40 mg(?),though Doug needs to develop better coping skills which won't necessarily be helped by higher medication doses. -- Continue Temazepam 15 mg qhs to help with sleep (good effect thus far). -- Encourage continued group attendance to help with coping, improve communication skills, and build self esteem and sense of purpose. -- Neuropsych assessment being finalized. -- D/C after follow-up services and housing options further clarified. The following risk/benefits of treatment were discussed with the patient: No new changes. Discharge Plan: D/C after follow-up services and housing options further clarified--likely next week. Ascencion Hinson MD 11/20/2010 18:57 Attending Attestation: I saw and evaluated the patient today. Treatment plan reviewed with the patient and team. I agree with the findings and plan of care as documented in the resident's note. This recent regression is similar to Doug's response to past discharge plans. He often fears and misperceives this type of action as a form of abandonment and was anticipating today as the day of d/c. Once this was left undetermined, he became less anxious, less hopeless. 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 Total time spent directly with patient was 20 minutes of which approximately 15 minutes was spent in counseling (see previous paragraph). An additional 10 minutes was spent in coordination of care with the multidisciplinary team. Total floor time: 30 min. VIELKA RODRIGUEZ MD Attending Psychiatrist [facility] Pager [phone] * Glenny Robin - 11/20/2010 1633 EDT Games: S. I like to play Boggle. O. Patient eager to play Boggle with peers. He played in organized manner and was social with bright affect. A. Engaged, focusing well, with bright affect. * Jenny Sood - 11/20/2010 1447 EDT Open ArtS/O: Patient attended open art for 60min. he started working on coloring a log scaler and focussed on adding detail. Affect pleasant, being helpful to peers. Pt talked with others, reported I just found out my foster mom is not feeling good and I did meet with my ssw, so I feel better, A. Engaged, calm, focusing well and social. P:Attend the groups, * Hlaey Carreon - 11/20/2010 1439 EDT Social Work Progress Note Intervention/Service: Community referral, Coordination of care and Supportive Therapy 1 On 11/19 Phone discussions with Noah Wen, [facility] intake co-ordinator. We set phone interview for 11/20. 2. Spoke again with Mrs Coto. She is still not doing well and does not feel up to talking with Doug. 3. Today arranged conference call with Doug and Noah Wen. She gave him information about [facility] services. It was interesting that Doug took this in as new information even though it had been explained to him in detail yesterday. Follow up intake appointment is scheduled for 11/28/10 at 10 am. It is not yet certain that he will be accepted in the program. * Jenny Sood - 11/20/2010 1251 EDT S/O:Pt attended Goals. Pt worked on identify alf and short term goals and first steps to achieving this goal and if needed additional steps required. Pt stated I need to find a place to live beside my car and call my old job [employer]. Pt also reported he would like to talk with his foster parents but are nervous because he hasn't talk with them in a couple of weeks. Pt was going to follow up with his SSW regarding his goals. A:engaged, alert, focussed on topic. P:Attend the groups. * Ramona Anderson - 11/20/2010 1241 EDT Social Work Progress Note Intervention/Service: Wellness Group S/O: Doug attended the entire Wellness Group. He appeared interested in the topic and spoke frequently. He repeated several times that his major obstacle to taking care of himself is self-esteem;because of low self-esteem, I don't care about myself and thus does not put effort into keeping himself well. 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 I'm making progress! A: Engaged in the group, but appeared depressed and fatalistic about his own life. P: Continue to attend groups. Ramona Anderson 11/20/10 12:46 PM Cosigned by Haley Carreon at 11/24/2010 15:56 EDT * Ana Ramirez - 11/20/2010 1055 EDT Psychiatry Acting Health Education Coordinator Progress Note 11/20/2010 LOS: 16 days Legal status: Voluntary Locus of harm: 3 Observation level: Routine Restricted to Unit: Yes Reason for admission: Suicidal and Homicidal Ideatioin Subjective: Doug slept approximately 5 hours per nursing. Doug states he finally slept through the night, not waking until 0500. He attributes his improved sleep to 2 nights of poor sleep and that the sleep finally caught up to me. He feels a little tired. He stated several times he would like to get in my car and drive to a nice little spot, start a campfire and wait my time and he would like to get out and enjoy my movies. When discussing his contact with his family, he states how am I supposed to call them after I haven't talked to them for a month and after we had a fight. He no longer needs his super glue because I will probably scrap all 3 referring to his model battleships. He is giving up all hope about work, making extreme statements that everyone requires 1-3 years of experience and that no one has any use for me. He states he has no purpose and that he has been searching for a purpose for the last 20 years and has yet to find it. 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 When nursing asked about self harm, he replied with keeping these things to myself. Current facility-administered medications Medication Route Frequency ??? temazepam (RESTORIL) capsule 15 mg Oral QHS ??? ibuprofen (MOTRIN) tablet 400 mg Oral Q6H PRN ??? clindamycin (CLEOCIN) capsule 300 mg Oral QID ? ? chlorhexidine (PERIDEX) 0.12 % solution 15 mL Swish & Spit BID ??? Benzocaine 20 % aerosol spray Oral Q6H PRN ??? fluoxetine (PROZAC) capsule 30 mg Oral DAILY ??? risperidone (RISPERDAL) tablet 1 mg Oral QHS ??? acetaminophen (TYLENOL) tablet 650 mg Oral Q4H PRN ??? nicotine (NICOTROL) 10 mg inhaler 1 Inhaler Inhalation Q2H PRN ??? nicotine inhaler (delivery device) Inhalation PRN Objective: BP 120/65 Pulse 50 Temp 35.7 ??C (96.3 ??F) Resp 16 SpO2 96% Mental Status Exam: Doug is a middle aged appearing man who continues to wear the same attire each day consisting of a red t-shirt with french hospital pants with moderated hygiene. His behavior is cooperative with fair eye contact. His speech is spontaneous with normal tone, he has times of louder, sarcastically toned speech. His stated mood is I just don't care anymore which is congruent withdiscouraged affect. His thought content is without delusions but frustrated and anxious toward leaving the hospital and sleep. He denies thoughts of self harm or SI/HI. His appears to not be responding to internal stimuli. His thought process demonstrates clear associations. His insight and judgment are poor. 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 Neuropsych eval show's borderline IQ. Sleep improved but remains discouraged and irritable. Walker I: Mood NOS, IED Walker II: Cluster B traits. R/o Asperger disorder or other autism spectrum disorders Walker III: Dental Abscess Plan: Psych: - Continue temazepam 15 mg qHS - Continue risperidone 1mg qHS - Continue fluoxetine 30 mg in the morning - consider increasing dose later this week - Continue nicotine replacement - Encourage group participation - [facility] phone intake with social work today Dental Abscess: Appreciate dental surgery recs 1. Continue clindamycin, peridex, benzocaine and tylenol. Ana Ramirez MS IV * Alda Corbin RN - 11/20/2010 0623 EDT Active Multi-Disciplinary problems: ALTERATION IN SLEEP [354637] (11/07/10) ANXIETY [[id number]] (11/07/10) PAIN [[id number]] (11/13/10) Data: Pt asleep when rec'd for care at 2330. Action: Pt monitored q30 mins as per routine obs. Response: Pt noted to be awake briefly X2 during the night. Up for the day at approx 0530, sat at desk singing softly to himself and counting his playing cards. Overall, pt appeared to sleep approx 5hours this shift. No complaints. Alda Corbin RN 11/20/2010 6:23 * Aneta Ann (At) - 11/19/20101956 EDT Games: S/O: Despite originally declining, pt played Apples to Apples and socialized with others in the group. Pt was able to learn the rules of the game despite believing that it was complicated initially. Pt laughed often, mostly from his own jokes. A: Social, inc in relaxation, brighter affect. P: Pt continue to participate in groups. * Aneta Ann (At) - 11/19/2010 1747 EDT Karaoke S/O: Pt chose songs and sang along with the music. Pt recognized several songs from the [employer]. Pt smiled often. During the song Escape, pt joked about escaping from the unit and laughed hardily. A: Engaged, increased relaxation, brightened affect. P: to continue to participate in groups to increase coping skills. 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 Says he's irritable because of poor sleep, but otherwise says he would be doing well. Admits to beingmore mellow than before hospitalization. Speaks a lot about battleships today but not making so many negative comparisons between him and them. Generally pleasant, conversant. Denies SI/HI. Still with some loose stool but not troublesome. Toothache much improved. Past Family/Social History Update: Has not connected with anyone from [employer] yet (he hasn't tried) about job opportunities--he first wants to get things settled with foster parents, including helping them with their camper. Foster mother not yet able to speak with pt. Current facility-administered medications Medication Route Frequency ??? temazepam (RESTORIL) capsule 15 mg Oral QHS ??? ibuprofen (MOTRIN) tablet 400 mg Oral Q6H PRN ??? clindamycin (CLEOCIN) capsule 300 mg Oral QID ? ? chlorhexidine (PERIDEX) 0.12 % solution 15 mL Swish & Spit BID ??? Benzocaine 20 % aerosol spray Oral Q6H PRN ??? fluoxetine (PROZAC) capsule 30 mg Oral DAILY ??? risperidone (RISPERDAL) tablet 1 mg Oral QHS ??? acetaminophen (TYLENOL) tablet 650 mg Oral Q4H PRN ??? nicotine (NICOTROL) 10 mg inhaler 1 Inhaler Inhalation Q2H PRN ??? nicotine inhaler (delivery device) Inhalation PRN Review of Systems: Tooth ache improved. Sleep poor--early awakening and doesn't fall back asleep. Loose stool, not diarrhea. Mental Status Exam: Pt is tall, overweight man, poor dentition, wearing red shirt and roman pants. Looks out window frequently but makes eye contact. More calm and conversant, mitesh about battleships, because I engaged himin that a bit. Did not make as many comparisons between his depressed stated and the ships. Mood: irritable because of poor sleep but otherwise good, more mellow than before. Affect: A bit irritable initially, but ultimately pretty euthymic. Calmer. Still has poor self-esteem and talks with a certain hopelessness, but he is not suicidal. Not homicidal. Insight: remains limited but fair. Unwilling to fully engage in self- introspection. Judgment: fair. Engaging in tx as he can. Can be impulsivebut has not demonstrated that here. Physical Exam: Not performed BP 120/65 Pulse 50 Temp 35.7 ??C (96.3 ??F) Resp 16 SpO2 96% Data Review: Labs: No results found for this or any previous visit (from the past 24 hour(s)). Other studies: N/A Assessment/Formulation: 45 yo man with depression related to psychosocial stressors and difficulties with self esteem and ability to express feelings. Notably calmer, more future-oriented though still engages in some self pity. Wants discharge, but housing options need to be clarified. SW actively working on this--Doug possibly can stay with his brother if not his foster parents. Shelters wouldlikely cause relapse of depression. SW aiming to get [employer] intake. D/C likely pushed to next week. Toothache much improved. Finishing clindamycin soon. Minimal GI distress, likely to resolve when clindamycin course is completed. Will stop Ambien as it has been unhelpful for sustained sleep (and ptunwilling to have repeat dose). Will try temazepam, but pt is reluctant to take much of anything. Neuropsych eval being finalized. Diagnosis: Walker I: MDD, recurrent, severe; IED by hx; Nicotine Dependence Walker II: Cluster B Traits, r/o autistic spectrum disorder Walker III: r/o TBI Plan: -- Continue risperdal 1 mg qHS, fluoxetine 30 mg daily. Consider increasing fluoxetine to 40 mg(?) -- D/C Ambien. Temazepam 15 mg qhs. -- Encourage continued group attendance to help with coping, improve communication skills, and build self esteem and sense of purpose. -- Neuropsych assessment being finalized. Might help with [employer] intake assessment, which is arranging. -- Continue clindamycin, chlorhexidine mouthwash, and pain control (acetaminophen and Benzocaine spray) for tooth decay -- D/C after follow-up services and housing options further clarified. The following risk/benefits of treatment were discussed with the patient: Potential benefits of temazepam for sleep, which pt very much wants and needs. Discharge Plan: D/C after follow-up services and housing options further clarified--likely next week. Ascencion Hinson MD 11/19/2010 17:38 Attending Attestation: I saw and evaluated the patient today. Treatment plan reviewed with the patient and team. I agree with the findings and plan of care as documented in the resident's note. Pt's anxiety is rising as d/c planning is beginning. He tends to avoid when faced with anxiety provoking events especially if there is a likelihood of disappointment. 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 Given lack of substance abuse, temazepam may be better option to provide better sleep length. Total time spent directly with patient was 20 minutes of which approximately 15 minutes was spent in counseling (re:avoidance as defense style to minimize fear of abandonment). An additional 20 minutes was spent in coordination of care with the multidisciplinary team. Total floor time: 35 min. VIELKA RODRIGUEZ MD Attending Psychiatrist [facility] Pager [phone] * Jenny Sood - 11/19/2010 1519 EDT S/O: Pt attended Seeking Safety. Focusing on grounding techniques and ways to learn healthy coping skills. Pt read out loud and spoke about using grounding techniques to detach from pain; example mental , physical, and soothing grounding. Pt stated I get so angry, I need to work on not getting so angry. Other pt told him to walk away, to take a break before he got upset with the person, and come back when he is ready to talk with that person. Pt said I can try, I don't want to be angry. A: increase coping skills, attentive,hopeful around learning the techniques, engaged. P:Attend the groups. * Alessandra Zuniga - 11/19/2010 1340 EDT Active Multi-Disciplinary problems: ALTERATION IN SLEEP [822735] (11/07/10) ANXIETY [[id number]] (11/07/10) PAIN [[id number]] (11/13/10) Data: Patient asked for towels and clean pants so he could shower, and did take shower in the morning but reported he didn't sleep well the night before and said he was grumpy. His tone in his speech was slightly agitated, but his behavior was calm. He ate good for breakfast and lunch, and attended morning group. Says he likes group but they (docs) always come and take me out this gets him mad. Patient is cooperative during check of his room, and was willing to talk one on one with me after. He did ask for nurse to get his fingernail clippers, which he concentrated on doing while he was conversing with me. Action: In the morning asked patient to attend group. In the afternoon had one on one conversation about his future plans for when he is discharged. Response: Patient did attend morning group, and was taken out by doctor shortly before group ended.Patient's plan for discharge is to live in his car. Says I have $18. I can get almost 3 days worthof gas. He explained that it takes 1/4 tank of gas a night to keep car heated. When asked to explore other options he was not interested. In response to how he felt about being taken out of the middle of a group he said he should bring the guns from one of his battleships see if they wanted a fight. His behavior did not show signs of anger during this conversation. Alessandra Zuniga 11/19/2010 13:45 Cosigned by Marcelle Nnia RN at 11/19/2010 14:49 EDT * Ana Ramirez - 11/19/2010 1038 EDT Psychiatry Acting Health Education Coordinator Progress Note 11/19/2010 LOS: 15 days Legal status: Voluntary Locus of harm: 3 Observation level: Routine Restricted to Unit: Yes Reason for admission: Suicidal and Homicidal Ideatioin Subjective: Doug woke at 0300 and remained awake playing with cards per nursing notes. He claims he has been awake since 1230. When asking about how he is doing he reports not great and complainsabout his poor sleep and does not think the Ambien is working. He does not wish to increase the initial dose to 10 because knocks him out the rest of the day. He has been taking the 5 mg each night, but does not feel comfortable asking the nurses for the additional 5 mg for early awakenings. He also shared his frustration about his tooth pain. He claims the dental people said he should not haveany pain after 24 hours of antibiotic treatment. He is experiencing some discomfort. He is skeptical about how he will pay for dental care out of hospital. He still does not have a plan for when heleaves the hospital and continues to state that living in his car is good enough for him. Current facility-administered medications Medication Route Frequency ??? ibuprofen (MOTRIN) tablet 400 mg Oral Q6H PRN ??? clindamycin (CLEOCIN) capsule 300 mg Oral QID ? ? chlorhexidine (PERIDEX) 0.12 % solution 15 mL Swish & Spit BID ??? Benzocaine 20 % aerosol spray Oral Q6H PRN ??? zolpidem (AMBIEN) tablet 5 mg Oral QHS ??? fluoxetine (PROZAC) capsule 30 mg Oral DAILY ??? risperidone (RISPERDAL) tablet 1 mg Oral QHS ??? acetaminophen (TYLENOL) tablet 650 mg Oral Q4H PRN ??? nicotine (NICOTROL) 10 mg inhaler 1 Inhaler Inhalation Q2H PRN ??? nicotine inhaler (delivery device) Inhalation PRN Objective: BP 120/65 Pulse 50 Temp 35.7 ??C (96.3 ??F) Resp 16 SpO2 96% Mental Status Exam: Doug is a middle aged appearing man dressed in a red t- shirt with french hospital pants with moderated hygiene. His behavior is cooperative with fair eye contact. His speech is spontaneous with normal tone, he has times of louder, sarcastically toned speech. His stated mood is I don't know which is congruent with discouraged affect. His thought content is without delusions but frustrated and anxious toward leaving the hospital and sleep. He denies thoughts of self harm or SI/HI. His appears to not be responding to internal stimuli. His thought process demonstrates clear associations. His insight and judgment are poor. 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 He has clinically improved demonstrating pleasant behavior and no irritability. Wednesday is the planned date fordischarged. Awaiting neuropsych eval results to make further assessments. He is demonstrating more frustration, which is likely related to his poor sleep. Walker I: Mood NOS, IED Walker II: Cluster B traits. R/o Asperger disorder or other autism spectrum disorders Walker III: Dental Abscess Plan: Psych: - Discontinue Ambien 5 mg qHS and discontinue 5 mg or rescue dose. - Add temazepam 15 mg qHS - Follow up with neuropsych about eval, should have result 11/19 at 1100. - Continue risperidone 1mg qHS - Continue fluoxetine 30 mg in the morning - consider increasing dose later this week - Continue nicotine replacement - Pass written to go to car for glue. Dental Abscess: Appreciate dental surgery recs 1. Continue clindamycin, peridex, benzocaine and tylenol. Ana Ramirez MS IV * Shabana Sheffield RN - 11/19/2010 0806 EDT Active Multi-Disciplinary problems: ALTERATION IN SLEEP [[id number]] (11/07/10) ANXIETY [[id number]] (11/07/10) PAIN [[id number]] (11/13/10) Data: pt awake at change of shift standing at his window clutching his war ship model surrounded bymany stacks of playing cards; pt denies pain at this time; he requests and receives towels and a change of pants for the day, he plans to shower; he reports his appetite is good and when asked how he slept he states what's that?.I've been awake since 1230 so don't mind me if I'm a bit touchy; pt eating lunch in the milieu; Action: monitor for safety; provide 1:1 Response: attending groups; mood touchy Shabana Sheffield RN 11/19/2010 8:06 * Irving Mckeon - 11/19/2010 0638 EDT Active Multi-Disciplinary problems: ALTERATION IN SLEEP [610799] (11/07/10) ANXIETY [[id number]] (11/07/10) PAIN [[id number]] (11/13/10) Data: Pt asleep at start of shift. Slept until 0300. Awake after that and counting cards at his desk. Action: Monitored for safety on routine observation. Response: Pt slept approximately 4 hours on billing clerk. No complaints or concerns to report. IRVING MCKEON RN 11/19/2010 6:38 * Glenny Robin - 11/18/2010 1531 EDT Crossword Puzzle:S. This was fun-I haven't been sleeping well and been up since 1 am O. Patient attended group and he actively participated throughout the group. He answered questions and interacted with peers, smiling at times. A. Engaged, more participation with brighter affect. * Haley Carreon - 11/18/2010 1450 EDT Social Work Progress Note Intervention/Service: Coordination of care 1. Spoke with Noah Wen, [employer] workers compensation defense attorney at [facility]. Have described Doug's situation to her. Have faxed appropriate material to her. Next step will be a phone interview with Doug which she willschedule in next few days. Have alerted to our plan for d/c this week. 2. Spoke with Otilia Coto to se if we could make a conference call with Doug. She is feeling quite unwell today - said she had been to the doctor and the hospital. Told her Doug wanted to apologize to her. She is too unwell to do this today - reminding me that she is 85. I may call tomorrowto see if she is feeling better and can talk to Doug then. * Ramona Anderson - 11/18/2010 1443 EDT Social Work Progress Note Intervention/Service: Discharge planning and Supportive Therapy I met with Doug around 1:25 PM for about 50 minutes. We discussed where Doug will live upon discharge. He at first insisted that he will live in his car because there are no other options, stating, I have a plan, it's just that you guys all think it's a bad plan. Doug eventually agreed that it is possible that his foster parents might allow him to stay with them, but he has a lot of fear about calling them to ask. He stated that he is not able to call them by himself but would consider doing so if social services coordinator Haley Carreon were with him to support him. He rejected the idea of asking his brother if he could stay with him, explaining that his foster mother's daughter, who owns the house where his brother lives, has never helped Doug financially in the past, but in the past year has been, leading him to suspect that she has ulterior motives. He asked, In a situation like this, wouldn't you be suspicious? Doug expressed ambivalence about the idea of discharge, explaining that people here at the hospital have been nicer to him than anyone has been before in his life (This is the best place I've everbeen.) He also feels he has not exploded during this stay and although he does not understand why, he feels he might be getting a handle on [his] anger and thus does not want to leave prematurely. Doug was also ambivalent about applying for [employer] services from [facility]. Heexplained that his past interactions with the agency have not been pretty, stating, If I'd had abattleship... I'd have blown the whole place up. Yet, he also asked questions about what case management is like and the process for getting it. Ramona Anderson 11/18/10 2:58 PM Cosigned by Haley Carreon at 11/18/2010 18:54 EDT * Philip Ferraro, RAFAEL - 11/18/2010 1306 EDT Active Multi-Disciplinary problems: ALTERATION IN SLEEP [[id number]] (11/07/10) ANXIETY [[id number]] (11/07/10) PAIN [[id number]] (11/13/10) Data: Patient's affect is much brighter today. He is smiling and joking with peers and staff. He ate both meals in the milieu and attended groups. In regards to SI patient states I don't know. No hopeless statements made today. Patient spent the time in between meals and groups counting cards. Heattends to his ADLs. Action: Routine observation, monitor for safety in environment of care, monitor for pain, offer 1:1with nursing for support, medication as prescribed, monitor for side effects of prescribed medication, assess and build on patient's strengths, encourage participation in the milieu, monitor for painand anxiety Response: Patient is in his room counting cards he is in no apparent distress. Will continue to monitor and assess. PHILIP HOFF RN 11/18/2010 13:06 * Ana Ramirez - 11/18/2010 1237 EDT Psychiatry Acting Health Education Coordinator Progress Note 11/18/2010 LOS: 14 days Legal status: Voluntary Locus of harm: 3 Observation level: Routine Restricted to Unit: Yes Reason for admission: Suicidal and Homicidal Ideatioin Subjective: Doug woke at 0230 and 0500 per nursing. Doug reports he has been awake since 0100 and the zolpidem is not doing anything for him. He states his eyes are still foggy and his glasses are not helping him. He is not complaining of any mouth or tooth pain. He shared his frustration aboutbeing yanked out of group again and later he felt like an intruder when returning to group. When asking about his mood he states I just don't care anymore. His reasons for this is because he nolonger has his self worth or self purpose because I am missing out on the only job I am needed for referring to helping his family unload a camper. He would also like a pass to go down to his car to retrieve model glue for his model battleships. He would also like [employer] [address] to have [employer] [place] andfor [employer] [address] to have [employer] [place]. Per nursing he is eating well and taking all medications. Nursing and other staff report an improvement in his mood and behavior. Current facility-administered medications Medication Route Frequency ??? ibuprofen (MOTRIN) tablet 400 mg Oral Q6H PRN ??? clindamycin (CLEOCIN) capsule 300 mg Oral QID ? ? chlorhexidine (PERIDEX) 0.12 % solution 15 mL Swish & Spit BID ??? Benzocaine 20 % aerosol spray Oral Q6H PRN ??? zolpidem (AMBIEN) tablet 5 mg Oral QHS ??? fluoxetine (PROZAC) capsule 30 mg Oral DAILY ??? risperidone (RISPERDAL) tablet 1 mg Oral QHS ??? acetaminophen (TYLENOL) tablet 650 mg Oral Q4H PRN ??? nicotine (NICOTROL) 10 mg inhaler 1 Inhaler Inhalation Q2H PRN ??? nicotine inhaler (delivery device) Inhalation PRN Objective: BP 130/72 Pulse 57 Temp 36 ??C (96.8 ??F) Resp 16 SpO2 92% Mental Status Exam: Doug is a middle aged appearing man dressed in a red t- shirt with french hospital pants with moderated hygiene. His behavior is cooperative with good eye contact. His speech is spontaneous with normal tone but mumbled, he has times of louder, sarcastically toned speech. His stated mood is I just don't care anymore which is congruent with discouraged affect. His thought content is without delusions and he is preoccupied with leaaving the hospital as soon as possible in order to assist his family. He denies thoughts of self harm or SI/HI. His appears to not be responding to internal stimuli. His thought process demonstrates clear associations. His insight and judgment are poor. 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 He has clinically improved demonstrating pleasant behavior and no irritability. Wednesday is the planned date fordischarged. Awaiting neuropsych eval results to make further assessments. Walker I: Mood NOS, IED Walker II: Cluster B traits. R/o Asperger disorder or other autism spectrum disorders Walker III: Dental Abscess Plan: Psych: - Follow up with neuropsych about eval, should have result 11/19 at 1100. - Continue risperidone 1mg qHS - Continue fluoxetine 30 mg in the morning - consider increasing dose later this week - Continue Ambien 5 mg qHS and offer another 5 mg if not successful - Discuss with nursing to give the additional 5mg for early awakening. - Continue nicotine replacement - Assess the possibility to go on pass to car Dental Abscess: Appreciate dental surgery recs 1. Continue clindamycin, peridex, benzocaine and tylenol. Ana Ramirez MS IV * Marta Mendez - 11/18/2010 1219 EDT Group Therapy/ Self Reflection: S/O: Pt came to the first few minutes of the group and then was asked to leave the group to meet with the attending. 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 Pt stated when asked how the experience felt stated that he has difficulty talking about his problems but felt ok to do in front of his peers and that he felt sad but couldn't cry. Pt also was attentive to peers as they discussed their concerns. A: engaged, inc in participation, sad when talking about his concerns, increase in sharing feelings, cedeno affect. P: to continue to participate in groups and increase coping skills. 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 Partly affected by dental pain. Acknowledges feeling more settled, more control of anger. Still identifies hesitation with expression of emotions, mitesh with males. Able to identify potential fear of appearing weak as reason for this resistance. Explored how to address this with his current outpatient therapist. Now expressing ambivalence about d/c. Uncertain if he is ready and whether he is placing too muchfocus on needs of family rather than his own. Agrees to have further discussions with family prior to establishing d/c plans. Neuropsych testing should be completed and presented to team tomorrow. Current facility-administered medications Medication Route Frequency ??? ibuprofen (MOTRIN) tablet 400 mg Oral Q6H PRN ??? clindamycin (CLEOCIN) capsule 300 mg Oral QID ? ? chlorhexidine (PERIDEX) 0.12 % solution 15 mL Swish & Spit BID ??? Benzocaine 20 % aerosol spray Oral Q6H PRN ??? zolpidem (AMBIEN) tablet 5 mg Oral QHS ??? fluoxetine (PROZAC) capsule 30 mg Oral DAILY ??? risperidone (RISPERDAL) tablet 1 mg Oral QHS ??? acetaminophen (TYLENOL) tablet 650 mg Oral Q4H PRN ??? nicotine (NICOTROL) 10 mg inhaler 1 Inhaler Inhalation Q2H PRN ??? nicotine inhaler (delivery device) Inhalation PRN Mental Status Exam: Pt is tall, overweight man, poor dentition, wearing red shirt and roman pants. Cooperative to interview. Mood euthymic. Affect restricted at times but congruent. More open about his frustrations with his expression of needs and feelings. Becoming more self aware. Less hopeless. Less cog distortions.More future focused. Denies current SI/HI. Cog intact. Better attention/conc. Insight: fair,improving. Judgment: fair. BP 130/72 Pulse 57 Temp 36 ??C (96.8 ??F) Resp 16 SpO2 92% Assessment/Formulation: 45 yo man with depression related to psychosocial stressors and difficulties with self esteem and ability to express feelings. Continues to improve, showing response to inpatient groups, therapy and education. Awaiting neuropsych testing results, which might affect follow-upCRT services. Prepare for discharge, possibly of this week. Hopefully housing situation will be clarified by then--either with foster parents, [facility]ci, etc. Toothache getting better with clindamycin and chlorhexidine mouthwash. Might be having GI distress from clindamycin but does not sound like C. diff. Will monitor. Diagnosis: Walker I: MDD, recurrent, severe; IED by hx; Nicotine Dependence Walker II: Cluster B Traits, r/o autistic spectrum disorder Walker III: r/o TBI Plan: --offer and encourage 2nd dose of zolpidem for intermittent sleep. --will write for break with staff to car if possible. -- Continue risperdal 1 mg qHS, fluoxetine 30 mg daily, and zolpidem 5 mg qhs (with repeat dose, ifnecessary). -- Encourage continued group attendance to help with coping, improve communication skills, and build self esteem and sense of purpose. -- Reinforce less black and white thinking, mitesh with regard to mood dysregulation and anger. -- Await neuropsych assessment to see if it will affect treatment or follow-up services (TBI vs autistic DO) -- Continue clindamycin, chlorhexidine mouthwash, and pain control (acetaminophen and Benzocaine spray) for tooth decay -- Monitor GI issues. -- Plan for D/C on . The following risk/benefits of treatment were discussed with the patient: No new changes to treatment. Discharge Plan: Plan for D/C on --hope to have neuropsych testing, housing, and follow-up settled by then. I saw and evaluated the patient today. Treatment plan reviewed with the patient and team. Total time spent directly with patient was 15 minutes of which approximately 10 minutes was spent in counseling (re:self esteem and establishing trust in therapy). An additional 20minutes was spent in coordination of care with the multidisciplinary team. Total floor time: 35 min VIELKA RODRIGUEZ MD Attending Psychiatrist [facility] Pager [phone] * Orlin Shankar - 11/18/2010 0527 EDT Active Multi-Disciplinary problems: ALTERATION IN SLEEP [302348] (11/07/10) ANXIETY [360227] (11/07/10) PAIN [[id number]] (11/13/10) Data: Pt Awake @ 0230 And 0500 Action: Routine observations Response: cont To observe And note Orlin Shankar RN 11/18/2010 5:27 * Marcelle Crum RN - 11/17/2010 6405 EDT Active Multi-Disciplinary problems: ALTERATION IN SLEEP [717176] (11/07/10) ANXIETY [863335] (11/07/10) PAIN [[id number]] (11/13/10) Patient Active Problem List Diagnoses Code ??? Major depression 296.20BE ??? Suicidal ideation V62.84 Data: Flat and restricted affect, denies SI/HI, denies auditory/visual hallucinations. Pt received motrin on day shift (see mar) and pt reports his pain level went down to a zero. Up and out of his room, watched a movie (The Abyss), went to group. Ate 100% of his dinner. Action: Encourage groups. Monitor for Safety. Offer medications as ordered. Encourage patient to utilize positive coping techniques. Continue to assess mood, affect, pain. Offer 1:1 support as needed. Response: Took all of his hs medications. Uneventful evening. Marcelle Crum RN 11/17/2010 22:57 * Marta Mendez - 11/17/2010 1939 EDT Games: S/O: Pt played several games of Wuzzufgle and socialized and laughed with others in the group. Pt noted that he was able to find many more words during each game tonight then he had the last time he played. Others in the group suggested that he was doing better and he agreed with them. A: Inc in participation, inc in relaxation, brighter affect, social, improved focus and concentration. P: Pt continue to participate in groups. * Aneta Ann (At) - 11/17/2010 1626 EDT Meditation Group: S/O: Pt attended the Meditation group and participated in a guided visualization and passive progressive muscle relaxation, remaining silent and still for both exercises. Pt appeared to have difficulty focusing during the first exercise, not closing his eyes, looking around the room. Pt shared thathe was bothered by a meeting earlier in the day and it was a distraction to him. Pt reported feeling more relaxed after the second exercise. A: Increasing relaxation, appropriate, increased engagement. P: To continue to participate in groups. * Jenny Sood - 11/17/2010 1624 EDT S/O: Pt attended Journaling Group 60 min. Pt stated I wrote about talking more and allowing himself to let go off his emotions with out blowing up. Another pt stated you talk about your emotions in groups and never blow up. Pt said your right, I need to learn how to do it at home with my foster parents, A/ engaged, pleasant affect, organized manner. improved mood. P/: To continue to go to therapeutic groups. * Vielka Rodriguez MD - 11/17/2010 1622 EDT Inpatient Psychiatry Daily Progress Note 11/17/2010 Admit Date: 11/04/2010 Hospital day: LOS: 13 days Legal Status: Legal status: Voluntary Observation Level: Observation / visual check: Routine (Q hour day / chema, Q 1/2 hour night) Locus/Risk of Harm: Current locus of harm: 3 Reason for Admission/Chief Complaint: SI Clinical Update/24-hour Events: Pt reports not feeling well--complain of feeling like he has to defecate, then forcing it, and having watery, loose stool. Also has mild headache but toothache is improving. Reports feeling like his body was going to crash last night about 15 minutes after taking his meds (Ambien and risperidone)--lost energy and felt like he fell asleep in middle of things. Nursing reports the same. Says he still wakes early, about 3 am. Wants to leave hospital to help foster parents take care of camper, but also reports he often puts others ahead of himself, sometimes at his own expense. Is afraid they won't need him if he doesn't get home to do this but also understands it mightbe best for him to stay another couple of days to get things squared away, including getting the results of neuropsych testing. I encouraged him to call [employer], because he thinks someone might betrying to get in touch with him about working there again. Says his mood is OK and denies SI, but then says he has lost too much in life to do that (referringto suicide). Asked to clarify and he says he feels he is losing interest in life because he has lost so much, but he feels he has a purpose to help others. Still having trouble finding self-esteem and purpose for himself. Past Family/Social History Update: Wants to help foster parents with getting camper out of garage. Not known yet if he will be able to live with family. Job status also still unclear but I encouragedVictor to call about his potential position at [employer]. Current facility-administered medications Medication Route Frequency ??? ibuprofen (MOTRIN) tablet 400 mg Oral Q6H PRN ??? clindamycin (CLEOCIN) capsule 300 mg Oral QID ? ? chlorhexidine (PERIDEX) 0.12 % solution 15 mL Swish & Spit BID ??? Benzocaine 20 % aerosol spray Oral Q6H PRN ??? zolpidem (AMBIEN) tablet 5 mg Oral QHS ??? fluoxetine (PROZAC) capsule 30 mg Oral DAILY ??? risperidone (RISPERDAL) tablet 1 mg Oral QHS ??? acetaminophen (TYLENOL) tablet 650 mg Oral Q4H PRN ??? nicotine (NICOTROL) 10 mg inhaler 1 Inhaler Inhalation Q2H PRN ??? nicotine inhaler (delivery device) Inhalation PRN Review of Systems: Tooth ache improved. Sleep sudden, but doesn't last. Loose stools, unclear if diarrhea as pt reports feeling he has to force bowels. Mental Status Exam: Pt is tall, overweight man, poor dentition, wearing red shirt and roman pants. He is somewhat forthcoming and open to conversation. No psychomotor agitation but he walks around a bit and looks out window. Relatively pleasant. Speech: normal RRV. Mood OK, but initially reported as poor because of GI issues. Affect: a bit dysphoric, but not completely steeped in self-pity or comparing himself to sunk battleships. Does talk about losing some interest in life, but has a little dramatic feel to it. Less angry today. Denies HI toward , and says he's more apt to run than fight--talks about being bullied when he was younger and only once getting physical when he was older with someone who bullied him when he was young. No SI, but makes odd statement about having lost so much he wouldn't need suicide, and losing interest in life. He is future-oriented though--wants to know about his job, wants to be discharged to help foster parents etc. Insight: fair but limited, unable to fully talk abouthis feelings and how to improve self esteem. Judgment: fair. Can be impulsive but has not demonstrated that here. Physical Exam: Not performed BP 119/64 Pulse 51 Temp 35.5 ??C (95.9 ??F) Resp 16 SpO2 96% Data Review: Labs: No results found for this or any previous visit (from the past 24 hour(s)). Other studies: MRI head 11/06/10: 1. Slightly greater than normal amount of T2 hyperintense lesions for age. This is a nonspecific finding and can be seen with early microvascular ischemic changes from diabetes, hypertension or smoking. These could also be post remote trauma, Lyme, vasculitis, post migraine or demyelinating disease. Clinical correlation suggested. 2. Right otomastoiditis which could be acute or chronic. Assessment/Formulation: 45 yo man with depression related to psychosocial stressors and difficulties with self esteem and ability to express feelings. Continues to improve in small steps--more willing to speak, affect a bit brighter, future-oriented. More stable, getting close to discharge, and he wants that. Awaiting neuropsych testing results, which might affect follow-up [facility] services. Prepare for discharge, possibly Wed. Hopefully housing situation will be clarified by then--either with foster parents, [facility], etc. Toothache getting better with clindamycin and chlorhexidine mouthwash. Might be having GI distress from clindamycin but does not sound like C. diff. Will monitor. Diagnosis: Walker I: MDD, recurrent, severe; IED by hx; Nicotine Dependence Walker II: Cluster B Traits, r/o autistic spectrum disorder Walker III: r/o TBI Plan: -- Continue risperdal 1 mg qHS, fluoxetine 30 mg daily, and zolpidem 5 mg qhs (with repeat dose, ifnecessary). -- Encourage continued group attendance to help with coping, improve communication skills, and build self esteem and sense of purpose. -- Reinforce less black and white thinking, mitesh with regard to mood dysregulation and anger. -- Await neuropsych assessment to see if it will affect treatment or follow-up services (TBI vs autistic DO) -- Continue clindamycin, chlorhexidine mouthwash, and pain control (acetaminophen and Benzocaine spray) for tooth decay -- Monitor GI issues. -- Plan for D/C on Wed. The following risk/benefits of treatment were discussed with the patient: No new changes to treatment. Discharge Plan: Plan for D/C on Wed--hope to have neuropsych testing, housing, and follow-up settled by then. Ascencion Hinson MD 11/17/2010 16:23 Attending Attestation: I saw and evaluated the patient today. Treatment plan reviewed with the patient and team. I agree with the findings and plan of care as documented in the resident's note. Pt brighter. He also can appreciate the improvement and agrees he needs to continue to work on self esteem and early warning signs of hurt feelings and reactive anger. Total time spent directly with patient was 20 minutes of which approximately 15 minutes was spent in counseling (re:self esteem and anger work). An additional 15 minutes was spent in coordination of care with the multidisciplinary team. Total floor time: 35 min VIELKA RODRIGUEZ MD Attending Psychiatrist [facility] Pager [phone] * Jenny Sood - 11/17/2010 1322 EDT S/O Pt attended the Grief and Anger Group and was attentive to the discussion of losses. Pt statedI have lost everything, my dream job, my grand kids, my ex trying to fight me on everything. Pt talked about missing his grand kids and wishing he could have contact with them. Pt stated I feellike I want to cry but the tears will not come out. Pt full of emotions but not able to express them. A/ engaged, inc strategies to cope with loss, broad affect. P:attend the groups. * Ana Ramirez - 11/17/2010 1205 EDT Psychiatry Acting Health Education Coordinator Progress Note 11/17/2010 LOS: 13 days Legal status: Voluntary Locus of harm: 3 Observation level: Routine Restricted to Unit: Yes Reason for admission: Threat to self requiring 24 hour supervision Subjective: Doug was awake since 0300. He also very abruptly fell asleep while playing cards withanother patient which concerned nursing. When asking him about this, he described what happened as I think I hit a minefield and I was hit by a torpedo. He states that there was a ~15 minute lag from when he took the medication and when he fell asleep. He continues to wake early at about 0300. He states that he has been trying to stay awake later at night to hopefully stay asleep longer. Whenasking about his weekend he said it was half good and half terrible because he was experiencing tooth pain for most of Wednesday. Currently he denies any tooth pain. [facility]. He states that if discharged today, he would still continue to sleep in his car. He denied SI but when asking about HI he said if I had to choose a target, I'dknow where to find one. He also shared some frustration about being pulled out of groups especial anger and grief and temper groups. He states that this has happened twice, once for neuropsych testing and another to speak with the doctor. He states that he will wait all day to go to these group and then he gets pulled out. Current facility-administered medications Medication Route Frequency ??? ibuprofen (MOTRIN) tablet 400 mg Oral Q6H PRN ??? clindamycin (CLEOCIN) capsule 300 mg Oral QID ? ? chlorhexidine (PERIDEX) 0.12 % solution 15 mL Swish & Spit BID ??? Benzocaine 20 % aerosol spray Oral Q6H PRN ??? zolpidem (AMBIEN) tablet 5 mg Oral QHS ??? fluoxetine (PROZAC) capsule 30 mg Oral DAILY ??? risperidone (RISPERDAL) tablet 1 mg Oral QHS ??? acetaminophen (TYLENOL) tablet 650 mg Oral Q4H PRN ??? nicotine (NICOTROL) 10 mg inhaler 1 Inhaler Inhalation Q2H PRN ??? nicotine inhaler (delivery device) Inhalation PRN Objective: BP 123/73 Pulse 60 Temp 35.6 ??C (96.1 ??F) Resp 16 SpO2 96% Mental Status Exam: Doug is a middle aged appearing man dressed in a red t- shirt with french hospital pants with moderated hygiene. His behavior is cooperative with good eye contact. His speech is spontaneous with normal tone but mumbled, he has times of louder, sarcastically toned speech. His stated mood is It's okay which is congruent with his affect of limited facial expression. His thought content is without delusions and he is preoccupied with leaaving the hospital as soon as possible inorder to assist his family. He denies thoughts of self harm or SI but continues to have homicidal ideation. His appears to not be responding to internal stimuli. His thought process demonstrates clear associations. His insight and judgment are poor. 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 He has clinically improved demonstrating no irritability. Wednesday is the planned date for discharged. Awaiting neuropsych eval results to make further assessments. Walker I: Mood NOS, IED Walker II: Cluster B traits. R/o Asperger disorder or other autism spectrum disorders Walker III: Dental Abscess Plan: Psych: - Follow up with neuropsych about eval - Continue risperidone 1mg qHS - Continue fluoxetine 30 mg in the morning - consider increasing dose later this week - Continue Ambien 5 mg qHS and offer another 5 mg if not successful - Continue nicotine replacement Dental Abscess: Appreciate dental surgery recs 1. Continue clindamycin, peridex, benzocaine and tylenol. Ana Ramirez MS IV * Angi White - 11/17/2010 1050 EDT DATA: Patient's affect was blunted for most of day shift. He was mostly isolative in his room, counting cards. He ate his breakfast in the milieu with peers but was not very social. Patient engaged easily in frequent brief 1:1 interactions with nursing staff. Patient explained more about [place] guerrero tactics and card counting to the author of this note. Patient spoke about, going home with fosterparents because I have to get it done. Patient denies SI/HI at this time. Patient denies pain at this time. Patient is unclear in his response about readiness for discharge and states, I've gotta go, I might not be ready but I just have to because that's what I've done my whole life, I've always put others before myself. ACTION: Frequent observation, monitor for safety in environment of care, monitor for pain, offer 1:1 with nursing for support, medication as prescribed, monitor for side effects of prescribed medication, assess and build on patient's strengths, encourage participation in the milieu RESPONSE: Patient is in his room counting cards, he is in no apparent distress at this time. Will continue to monitor and assess. Cosigned by Philip Ferraro, RAFAEL at 11/17/2010 13:23 EDT * Marilu Burns RN - 11/16/2010 2320 EDT Disturbed Sleep Pattern Data: This RN called upon by staff due to ct abruptly falling asleep in activity room and nearly falling off the chair. Ct has fallen asleep abruptly the last 3 nights (twice observed, once reported by ct) at around the same time (about 2200 to 2230) and awakened with response to tactile stimulation. Action: mobile nurse Lucy called on-call resident Dr. Jackson, Ct transferred to bed via wheelchair and2 assist, Vital signs taken Response: Ct flopped onto bed and was noted smirking/smilings by RAFAEL Quach, VSS, Dr. Jackson aware, nonew orders in place at this time, continue to monitor, may need teaching on getting into bed by 2200. Marilu Burris RN 11/16/2010 23:20 * Marilu Burns RN - 11/16/2010 195 EDT Discharge Planning Data: ct stated mood okay and to questions of SI, whatever's gonna happen will happen. Ct stated he would like to be discharged tomorrow to help his foster parents pull out the camper. Action: Assessed discharge readiness. Response: Ct reported he does not know if he feels ok enough and stated, personally I don't think I'm ready but as Bibigiovany says, the needs of the many outweigh the needs of the few. When encouragedto think of alternative ways to help his foster parents but also finish treatment here, ct stated, I'm really just dying for a cigarette! Ct declined offer of nicotine replacement. States he will talk to his treatment team tomorrow about discharge plans. Marilu Burris RN 11/16/2010 19:59 * Aneta Ann (At) - 11/16/2010 1433 EDT Anger Management Group: S/O: Pt discussed his fear of losing control over his anger. Pt does not believe that he is able torecognize his anger until he can't see straight. Pt was given suggestions from the group on how he might recognize and redirect his anger, but pt maintained that he did not feel he could do these things. Pt also expressed feeling guilt over becoming violently angry with his ex in front of his children, having seen his own father in a state of rage when the pt was a child and knowing how frightening that experience was. Pt was able to give supportive feedback to others as well. A: Expressive, pleasant affect, engaged. P: To continue to participate in groups. * Jennifer Mahmood MD - 11/16/2010 1319 EDT 11/16/2010 ATTENDING SET UP PERSON NOTE REASON FOR HOSPITALIZATION: Depression, SI HOSPITAL DAY: LOS: 12 days INTERIM HISTORY: Events of past 24h reviewed with nursing staff. Depressed, withdrawn, preoccupied.Misses his grandchildren. Isolative. Jaw pain is an issue (has a tooth infection) still and taking Tylenol. Slept well. Spoke to me about the battleship models and wants one back (one he will destroy and another he willsalvage). OK for unit to keep the [employer] model. Plans to leave tomorrow to help his foster family,but is reconsidering given that he puts other people first. Given reinforcement for his helpful offerings to his family. EXAM: Tall, muscular man with poor dentition and red t-shirt stretched over abdomen, in jeans. Cooperative and talkative. No SI currently. BP 127/79 Pulse 63 Temp 35.2 ??C (95.4 ??F) Resp 18 SpO2 96% ASSESSMENT: Doing well relative to last admission. PLAN: As per treatment team. Motrin ordered for pain (dental and headache). I will bring back the model battleships to the unit for likely discharge tomorrow. JENNIFER MAHMOOD MD Attending Psychiatrist guidance consultant Pager [phone] * Glenny Rodriguez RN - 11/16/2010 1244 EDT Active Multi-Disciplinary problems: ALTERATION IN SLEEP [[id number]] (11/07/10) ANXIETY [[id number]] (11/07/10) PAIN [[id number]] (11/13/10) Data: Pt has been counting cards in his room this a.m and has attended morning coginitive therapy group. Pt has complained of upper right tooth pain and has received Hurricane spray and Tylenol 650 mg at 1200. Pt will receive Motrin when available. Pt describes his tooth pain as miserable and has limited what he eats secondary to pain when pressure is applied. Pt has not eaten breakfast, has eaten a soft lunch. Pt is easily engaged, mood is good. Action: Pt has been given scheduled medications, has been observed routinely and has been provided with supportive nursing interventions. Response: Pt will monitored and treated for pain. Pt is stable at this time. Glenny Rodriguez RN 11/16/2010 12:44 * Marta Mendez - 11/16/2010 1224 EDT Mindfulness Cognitive Group: S/O: Pt participated in a breathing meditation and participated in the discussion of automatic thoughts and rational responses and completed a Cognitive thought record. Pt's automatic thought was that his foster family kept bringing up his ex to him and this caused him a lot of pain and he wanted to isolat. He stated that he hasn't seen his foster family the last couple of months and he misses them. Others in the group gave him positive feedback that he was liked. Pt also shared with a peer who heard unkind words from her family that when he was younger that he had to cut off contact with his parents because every time he saw them he would destroy some of his possessions, his ships. A: inc in participation, engaged, increasing cognitive skills, improved mood, social, supportive ofpeers. P: To continue to participate in group and increase coping skills. * Marilu Burns RN - 11/15/2010 1254 EDT Grieving Data: Ct lying in bed at start of shift; appeared depressed, preoccupied, and withdrawn. Expressed feeling depressed and missing his grandchildren. Action: Assessed SI/HI, supportive 1:1 (encouraged ct to express feelings and recall good memories) Response: Ct able to express sadness with not seeing his grandchildren for about a year now. Stateshe has no way of contacting them at this point. Was able to recall many fond memories of their timetogether and did brighten up when talking about them. Marilu Burris RN 11/15/2010 21:44 * Aneta Ann (At) - 11/15/2010 1536 EDT Focus Group: S/O: Pt completed the survey and joined the discussion. Pt expressed frustration with the changing of the group planned this afternoon and with being removed by one of the groups by his attending MD.Pt became frustrated while filling out the survey and made a gun to the head motion to exhibit thisfrustration. Pt did not fill out answers to specific parts of the survey but instead wrote a paragra ph about feeling comfortable on the unit and able to talk to people, although pt dislikes the policy of not being able to give gifts to the MD's. A: Frustrated affect at times, angry affect at times, engaged. P: to continue to participate in groups. * Glenny Rodriguez RN - 11/15/2010 1454 EDT Active Multi-Disciplinary problems: ALTERATION IN SLEEP [[id number]] (11/07/10) ANXIETY [[id number]] (11/07/10) PAIN [[id number]] (11/13/10) Data: Pt has spent time in his room counting cards and has attended group this afternoon. Pt has complained of headache #10 and has received Tylenol 650 mg which has been helpful. Pt continues to have an improved mood, ced[place] range of affect. Pt denies SI, denies feeling depressed. Action: Pt has been given scheduled medication, has received pain relief, has been observed routinely and has been provided with supportive nursing interventions. Response: pt is stable at the end of this shift. Glenny Rodriguez RN 11/15/2010 14:55 * Marta Mendez - 11/15/2010 1442 EDT Life Skills: S/O: Pt participated in the discussion of anger but stated that when his anger peaks there isn't any thing that he can do about it. Pt was attentive as others read from the Coping With Voices Workbook but did not join in the discussion. Pt participated in a progressive muscle relaxation meditation. A: Attentive, increasing coping skills, restricted affect. P: To continue to participate in groups. * Jennifer Mahmood MD - 11/15/2010 2891 EDT 11/15/2010 ATTENDING SET UP PERSON NOTE REASON FOR HOSPITALIZATION: Depression, SI HOSPITAL DAY: LOS: 11 days INTERIM HISTORY: Events of past 24h reviewed with nursing staff. Less hostile and more engaged withstaff currently. Going to groups. Has a tooth infection for which he is receiving Clindamycin. Slept fairly well. Taking Prozac and Risperidone. Comes to speak with me in his room and showed me pictures [facility]. Says he is having a bad day due to an ongoing headache. He says he is back due to his ex- and the court guerrero. Otherwise in good spirits. Attending groups. Less aggressive posturing and language than in other visits. EXAM: Tall, muscular man with disheveled hair and red t-shirt stretched over abdomen, in jeans. Cooperative and talkative. No SI currently. BP 121/73 Pulse 65 Temp 36.2 ??C (97.2 ??F) Resp 18 SpO2 96% ASSESSMENT: Doing well relative to last admission. Compliance with medication is a change for the better. PLAN: As per treatment team. Motrin 600mg x 1 dose to address headache. JENNIFER MAHMOOD MD Attending Psychiatrist guidance consultant Pager [phone] * Heather Hill RN - 11/14/2010 2231 EDT Active Multi-Disciplinary problems: ALTERATION IN SLEEP [[id number]] (11/07/10) ANXIETY [[id number]] (11/07/10) PAIN [[id number]] (11/13/10) Data: Pt isolated to his room most of shift counting his cards and reading his judo book. He has no complaints. He has no pain until medication time in his tooth. He receives his scheduled antibiotic and peridex solution at . He is not in a in any emotional or physical distress this shift. Action: monitor Response: stable Heather Hill RN 11/14/2010 22:31 * Ramona Anderson - 11/14/2010 1526 EDT Social Work Progress Note Intervention/Service: Supportive Therapy I met with Doug briefly around 1:00 PM, then went with him to his car in the parking garage around 2:40 PM. He brought back his glasses and a few other items from his car. He was frustrated that hecould not find a phone number he needed to call regarding his unemployment benefits, stating, I knew this whole trip would be ruined, but then acknowledged that he had succeeded in finding his eyeglasses. I found a number for assistance with unemployment claims on the [place] [employer] web site and Doug agreed to try this one. 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 He complained about how there's always something to be done, but it appeared that he also felt good about the idea of being useful. He stated, I don't care whathappens to me, but that he did care about his foster parents, who are getting less able to keep uptheir property as they get older. It is my impression that he was thinking about this as a reason not to choose suicide. Ramona Anderson 11/14/10 3:41 PM Cosigned by Haley Carreon at 11/14/2010 18:38 EDT * Vielka Rodriguez MD - 11/14/2010 1521 EDT Inpatient Psychiatry Daily Progress Note 11/14/2010 Admit Date: 11/04/2010 Hospital day: LOS: 10 days Legal Status: Legal status: Voluntary Observation Level: Observation / visual check: Routine (Q hour day / chema, Q 1/2 hour night) Locus/Risk of Harm: Current locus of harm: 3 Reason for Admission/Chief Complaint: SI Clinical Update/24-hour Events: Pt slept a little better last night. Didn't like Lidocaine viscous gel for tooth ache and wanted Benzocaine spray again, which provided some relief. Didn't want chlorhexidine mouthwash but will try after being educated about it (that it will help for cleaning, not pain control) today. Pain is tolerable today. Started clindamycin for tooth decay yesterday. Still complains of vision problems with close work but was able to color within lines on art project. Says hehad to stop though because of difficulty--he is getting glasses from his car this afternoon. Reports having a good call with his foster father and Perlita Carreon yesterday. He feels needed, because they have a project to work on. He enjoys having a purpose and feeling useful, and we talked about the need to feel this sense of purpose even at times when he is not working. We talked about helping others, which he cites as his purpose (though he says that won't get him ahead--meaning money?). He reminisces about driving and the freedom he felt. We talked about how he might recreate that feeling through meditation and his other work. He did think he would feel better once he starts working again. Still struggles with self esteem and says he worries about others more than himself. Past Family/Social History Update: SW will work with pt to contact foster family--no updates yet. Current facility-administered medications Medication Route Frequency ??? clindamycin (CLEOCIN) capsule 300 mg Oral QID ? ? chlorhexidine (PERIDEX) 0.12 % solution 15 mL Swish & Spit BID ??? Benzocaine 20 % aerosol spray Oral Q6H PRN ??? zolpidem (AMBIEN) tablet 5 mg Oral QHS ??? fluoxetine (PROZAC) capsule 30 mg Oral DAILY ??? risperidone (RISPERDAL) tablet 1 mg Oral QHS ??? acetaminophen (TYLENOL) tablet 650 mg Oral Q4H PRN ??? nicotine (NICOTROL) 10 mg inhaler 1 Inhaler Inhalation Q2H PRN ??? nicotine inhaler (delivery device) Inhalation PRN Review of Systems: Complains of blurry vision with close reading. Tooth ache improved. Slightly better sleep. No otherAEs from meds. Mental Status Exam: Pt is tall, overweight man, wearing red shirt tucked into jeans today--more kempt. Walks around theroom a bit during interview but is not agitated. Cooperative and more pleasant. Speech: normal RRV.Mood: OK. Affect: Seems a bit brighter and willing to listen to ideas, more easily engaged and lessnegative. Only one battleship reference. Thoughts are a little more positive and forward-thinking--also mentioning his jobs potentially starting again. No delusions. Insight: fair, understanding moreabout need to develop self-purpose and self-esteem. Judgment: fair. Can be impulsive but capable ofself regulation. Physical Exam: Not performed BP 121/73 Pulse 65 Temp 36.2 ??C (97.2 ??F) Resp 18 SpO2 96% Data Review: Labs: No results found for this or any previous visit (from the past 24 hour(s)). Other studies: MRI head 11/06/10: 1. Slightly greater than normal amount of T2 hyperintense lesions for age. This is a nonspecific finding and can be seen with early microvascular ischemic changes from diabetes, hypertension or smoking. These could also be post remote trauma, Lyme, vasculitis, post migraine or demyelinating disease. Clinical correlation suggested. 2. Right otomastoiditis which could be acute or chronic. Assessment/Formulation: 45 yo man with depression related to psychosocial stressors and difficulties with self esteem and ability to express feelings. Steadily improving with less depression, more purpose. Feels some relief and purpose after learning he is needed to work on a project with foster father. Understands need to work on finding purpose even when not working and though he struggles to do this, he agrees to work on this during hospitalization. Appreciate dental consult and recs. Will continue with clindamycin, chlorhexidine mouthwash, and pain control (acetaminophen and Benzocaine spray). Neuropsych testing completed --appreciate their input and awaiting results. Diagnosis: Walker I: MDD, recurrent, severe; IED by hx; Nicotine Dependence Walker II: Cluster B Traits, r/o autistic spectrum disorder Walker III: r/o TBI Plan: -- Continue risperdal 1 mg qHS, fluoxetine 30 mg daily, and zolpidem 5 mg qhs (with repeat dose, ifnecessary). -- Encourage continued group attendance to help with coping, improve communication skills, and build self esteem and sense of purpose.. -- Reinforce less black and white thinking, mitesh with regard to mood dysregulation and anger. -- Await neuropsych assessment to see if it will affect treatment or follow-up services (TBI vs autistic DO) -- Continue to work with foster family on D/C planning. -- Clindamycin, chlorhexidine mouthwash, and pain control (acetaminophen and Benzocaine spray) for tooth decay -- If he still has vision difficulties after getting glasses, consider inexpensive pair of reading glasses (e.g. at gift shop) for likely presbyopia. -- social work assisting in exploration of [employer] services The following risk/benefits of treatment were discussed with the patient: Educated about cleaning/disinfecting qualities of chlorhexidine. Discharge Plan: Getting closer as symptoms improve and foster family willing to maintain relationship. Assess D/C options next week. Ascencion Hinson MD 11/14/2010 15:21 Attending Attestation: I saw and evaluated the patient today. Brighter affect, showing more future focus and some hope forthings to improve. Treatment plan reviewed with the patient and team. I agree with (and have editedin italics) the findings and plan of care as documented in the resident's note. Total time spent directly with patient was 20 minutes of which approximately 15 minutes was spent in counseling (re:CBT approach to cog distortions with improving response). An additional 15 minutes was spent in coordination of care with the multidisciplinary team. Total floor time: 35 minutes. VIELKA RODRIGUEZ MD Attending Psychiatrist [facility] Pager [phone] * Marta Mendez - 11/14/2010 9189 EDT Cognitive Group: S/O: Pt participated in the discussion of self esteem and identified when someone made him feel badabout himself. Pt spoke about his family and how his family was too judgemental and when his brother moved in with his foster family his family never forgave him. Also his parents always took his sister's side. Pt also participated in the discussion and identified an automatic thought and rational responses. He stated that he labels himself when his craft projects, ships, don't come out right. Hewas especially hard on himself because he wanted to give the ships away. 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 A: inc in participation, engaged, increasing cognitive skills, improved mood, cedeno affect. P: To continue to participate in group and increase coping skills. * Glenny Rodriguez RN - 11/14/2010 1341 EDT Active Multi-Disciplinary problems: ALTERATION IN SLEEP [183839] (11/07/10) ANXIETY [[id number]] (11/07/10) PAIN [[id number]] (11/13/10) Data: Pt has been attending groups otherwise spends time in his room counting cards. Pt is easily engaged and is showing a sense of humor. Pt has not complained of tooth pain and continues to say he'd like a grenade to put in his mouth and pull the clip. Pt says this with humor, without SI, would like to end dental problems. Pt denies thoughts of self-harm, mood is good, affect is cedeno. Action: Pt has been given scheduled medications, has been observed routinely and has been provided with supportive nursing interventions. Response: Pt is stable at this time. Glenny Rodriguez RN 11/14/2010 13:41 * Carey Arambula - 11/14/2010 1233 EDT Open Art: S/O: Pt worked on coloring a log scaler. He was quiet, focused on his log scaler but he was also social and interactive with peers and staff. He complained about eye strain b./c he didn't have his glasses. Pt ignored advice to not color but he did agree to move to the other side of table where light would be better. This did not help much and prior to the end of group, pt commented that his eyes were really bothering him now. Pt noted that he had glasses in his car and wondered about being able to get them and I told him I would inform his SW. A: Pt engaged with pleasant affect. Poor judgement about continuing to color. P: To continue to participate in groups and SW informed. * Ana Ramirez - 11/14/2010 0949 EDT Psychiatry Acting Health Education Coordinator Progress Note 11/14/2010 LOS: 10 days Legal status: Voluntary Locus of harm: 3 Observation level: Routine Restricted to Unit: Yes Reason for admission: Threat to self requiring 24 hour supervision Subjective: When asking Doug about his toothache he stated the Evelina had a toothache, I had a war. He stated last night was the worst and the pain got to the point where he was banging his headagainst the wall. When telling him he had tylenol available to help with the pain, he stated he wants to save it as a last resort. He states that his sleep is better. He woke up at 3:00 am this morning, but then he was able to go back to sleep. He states he is a little sleepy but not really groggy.He stated that he really needs to get out of here because his foster parents need his help to get the camper out. When asking if he was ready to leave he said what I need is the least of my priortities and stated several times that they need his help. He states that he is not the comfortable yet to leave and he would just stay in his car again. He would like to share some battleship pictures with Dr Mahmood. Current facility-administered medications Medication Route Frequency ??? clindamycin (CLEOCIN) capsule 300 mg Oral QID ? ? chlorhexidine (PERIDEX) 0.12 % solution 15 mL Swish & Spit BID ??? Benzocaine 20 % aerosol spray Oral Q6H PRN ??? zolpidem (AMBIEN) tablet 5 mg Oral QHS ??? fluoxetine (PROZAC) capsule 30 mg Oral DAILY ??? risperidone (RISPERDAL) tablet 1 mg Oral QHS ??? acetaminophen (TYLENOL) tablet 650 mg Oral Q4H PRN ??? lorazepam (ATIVAN) tablet 1 mg Oral Q6H PRN ??? nicotine (NICOTROL) 10 mg inhaler 1 Inhaler Inhalation Q2H PRN ??? nicotine inhaler (delivery device) Inhalation PRN Objective: BP 134/76 Pulse 72 Temp 35.8 ??C (96.4 ??F) Resp 18 SpO2 93% Mental Status Exam: Doug is a middle aged appearing man dressed in a red t- shirt with [facility] pants with moderated hygiene. His behavior is cooperative with good eye contact. His speech is spontaneous with normal tone but mumbled. 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 His mood is depressed which is congruent with his affect of limited facial expression and appearing depressed. His thought content is without delusions and he is preoccupied with counting and battleships. He has passive suicidal ideation and homicidal ideation. His appears to not be responding to internal stimuli. His thought process demonstrates clear associations. His insight and judgment are poor. 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 Sleep improved, irritability controlled. New issue of toothache currently being treated with medication. Continuecurrent plan. Awaiting neuropsych eval results. Walker I: Mood NOS, IED Walker II: Cluster B traits. R/o Asperger disorder or other autism spectrum disorders Walker III: Dental Abscess Plan: Psych: - Discontinue Lorazepam 1 mg q6 hours PRN for agitationContinue risperidone 1 mg - consider increasing dose based on his level of agitation and aggression - Follow up with neuropsych about eval - was seen on Wednesday - Continue fluoxetine 30 mg in the morning - consider increasing dose later this week - Continue Ambien 5 mg qHS and offer another 5 mg if not successful - Continue nicotine replacement - Communicate with social work about placement and possibilities of work Dental Abscess: Appreciate dental surgery recs 1. Continue clindamycin, peridex, benzocaine and tylenol. Ana Ramirez MS IV * Orlin Shankar - 11/14/2010 8304 EDT Active Multi-Disciplinary problems: ALTERATION IN SLEEP [[id number]] (11/07/10) ANXIETY [[id number]] (11/07/10) PAIN [[id number]] (11/13/10) Data:Pt Awake From 0400 To 0430 Action: Frequent observations Response: Cont To observe and note Orlin Shankar RN 11/14/2010 5:56 * Heather Hill RN - 11/13/2010 2961 EDT Active Multi-Disciplinary problems: ALTERATION IN SLEEP [[id number]] (11/07/10) ANXIETY [[id number]] (11/07/10) PAIN [[id number]] (11/13/10) Data: Pt attended poetry group. He spends down time in his room organizing and counting his cards. His toothpain went from a 4 to a 9 after I gave him prn lidocaine swish. He was pacing in his bathroom saying Just give me a grenade. PRN toothpain medications were switched back to previous ones including hurricane spray pt says works well. Pain is under good control for the remainder of the shift. Pt comes out and watches [place] [employer] with others and laughs a lot when Kenan Morel comes on. Other pts told Doug that it was good to see him smile. His appetite is good and he is calm and appropriate with staff. No verbalizing self harm or SI. Action: monitor Response: stable Heather Hill RN 11/13/2010 22:56 * Haley Carreon - 11/13/2010 1801 EDT Social Work Progress Note Intervention/Service: Supportive Therapy Met with Doug this pm. He felt he had done well on psych testing this afternoon. He reported he missed only one question. Suggested we call the [employer] together. He said he was nervous and did not think they would talk to him. Iassured him that was not the situation. 2. Called and spoke with Bennie Coto. Otilia was out but he was willing to talk to Doug. 3. Doug and I called Bennie Coto back. He updated Doug on his cardiac situation. He told Dougabout the job Otilia wanted done involving taking their camper out of storage. Doug offered to help and Bennie thanked him. Doug was able to calmly report to Bennie what had transpired at the last Court hearing. He was able to convey his apology to Otilia and agreed to call her back. * Aneta Ann (At) - 11/13/2010 4789 EDT Poetry: S/O: Pt chose not to write a poem, saying that he was no good at putting things on paper and alsodid not give commentary most of the poems read. Pt did however give feedback to another pt, saying that he liked her poem and that it made sense to him. After the others in the group left, pt remained for 15 minutes and talked about his frustration in having missed the Self Esteem group the day before due to taking a test. Pt expressed extreme disappointment, stating that he had been counting down the minutes all day until that group and then was not able to attend. Pt also discussed guerrero ships and showed this policy writer typist some photos of a ship that he had seen. Pt shared that he likes guerrero ships because of the numbers involved (the weight of different parts of the ship, the crew numbers, etc.). A: Withdrawn and later social, attentive, pleasant affect. P: To continue to participate in groups. * Ramona Anderson - 11/13/2010 1403 EDT Social Work Progress Note Intervention/Service: Wellness Group S/O: Doug attended the Wellness Group. 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 He listened to what other people were saying and made some supportive comments. A: Engaged, but feeling hopeless. P: Continue to attend groups. Ramona Anderson 11/13/10 2:07 PM Cosigned by Haley Carreon at 11/13/2010 15:21 EDT * Vielka Rodriguez MD - 11/13/2010 1328 EDT Inpatient Psychiatry Daily Progress Note 11/13/2010 Admit Date: 11/04/2010 Hospital day: LOS: 9 days Legal Status: Legal status: Voluntary Observation Level: Observation / visual check: Q 15 minutes (frequent) Locus/Risk of Harm: Current locus of harm: 4 Reason for Admission/Chief Complaint: SI Clinical Update/24-hour Events: Pt awakened at 2 am last night--complains of toothache B/L of upperrow of teeth. Says he has had this pain before and described it as abscesses. Describes mood as as good as can be expected with his pain. He was disappointed he missed self-esteem group yesterday because of neuropsych testing, and he did not want to miss additional groups (meditation, etc) today because of additional testing. Gets easily frustrated, which we discussed, including his tendency to fly off the handle when issues about his come up. Discussed importance of preventing himself from becoming ignited and to learn how to express his feelings. For instance, he said his foster parents should get the hint that he does not like talking about his ex-, but we talked about how he needs to be direct in his communication and expression of feelings, rather than waiting for peopleto take the hint or guess what he feels. Despite all this, he talks about taking things one day valerio time, with regard to his feelings and mood. Feeling unsure about whether he would pass a physical to be able to work. Still complains of some blurry vision. Past Family/Social History Update: SW will work with pt to contact foster family--no updates yet. Current facility-administered medications Medication Route Frequency ??? Benzocaine 20 % aerosol spray Oral Q6H PRN ??? zolpidem (AMBIEN) tablet 5 mg Oral QHS ??? fluoxetine (PROZAC) capsule 30 mg Oral DAILY ??? risperidone (RISPERDAL) tablet 1 mg Oral QHS ??? acetaminophen (TYLENOL) tablet 650 mg Oral Q4H PRN ??? lorazepam (ATIVAN) tablet 1 mg Oral Q6H PRN ??? nicotine (NICOTROL) 10 mg inhaler 1 Inhaler Inhalation Q2H PRN ??? nicotine inhaler (delivery device) Inhalation PRN Review of Systems: Complains of blurry vision when trying to read at different times of the day. Tooth ache as described. Early awakening. No other AEs from meds. Mental Status Exam: Pt is tall, overweight man looks a bit crystal and older than stated age wearing red t-shirt, sitting at desk playing [employer]. Cooperative, seems more open to discussion today. No psychomotor abnormalities. Speech: normal RRV, but gets loud when frustrated and irritated, which he gets when discussing ex-. Mood: As good as can be expected, given his tooth pain. Expresses frustration with missing groups because of tests and consultants he needs to see. Overall seems a bit more animated. Thoughts are a little less negative and hopeless, but he perseverates a bit about his anger toward wifewhen we discuss how to express his feelings and prevent his temper from exploding. No expressed HI to , but clear anger toward her. Insight: fair, understands his disposition, in talking about his temper. Judgment: fair. Can be impulsive but capable of self regulation. Physical Exam: Not performed BP 134/76 Pulse 72 Temp 35.8 ??C (96.4 ??F) Resp 18 SpO2 93% Data Review: Labs: No results found for this or any previous visit (from the past 24 hour(s)). Other studies: MRI head 11/06/10: 1. Slightly greater than normal amount of T2 hyperintense lesions for age. This is a nonspecific finding and can be seen with early microvascular ischemic changes from diabetes, hypertension or smoking. These could also be post remote trauma, Lyme, vasculitis, post migraine or demyelinating disease. Clinical correlation suggested. 2. Right otomastoiditis which could be acute or chronic. Assessment/Formulation: 45 yo man with depression related to psychosocial stressors and difficulties with self esteem and ability to express feelings. Understands he needs to curb his temper and learn how to express his feelings by comunicating directly. Appears to be improving a bit, mitesh as he lives more in the moment dealing with current issues and not becoming overwhelmed. Dental consult today for tooth pain--we appreciate their recommendations and will treat with antibiotics as and discuss with SW outpt free dental tx options. Will also stop benzocaine spray, which was difficult to administer in favor of lidocaine viscous gel, which can be applied topically with cotton swab. Despite sleeping difficulties (likely from tooth pain), won't make any changes to zolpidem. Neuropsych testing completed today--appreciate their input. Diagnosis: Walker I: Mood d/o NOS (r/o MDD, r/o dysthymia); IED by hx; Nicotine Dependence Walker II: Cluster B Traits, r/o autistic spectrum disorder Walker III: r/o TBI Plan: -- Continue risperdal 1 mg qHS, fluoxetine 30 mg daily, and zolpidem 5 mg qhs (with repeat dose, ifnecessary). -- Encourage continued group attendance to help with coping, improve communication skills, and build self esteem. -- Reinforce less black and white thinking, mitesh with regard to mood dysregulation and anger. -- Await neuropsych assessment to see if it will affect treatment or follow-up services (TBI vs autistic DO) -- SW will contact foster parents and communication between them and pt will be facilitated. -- Discuss with SW whether he can get his glasses or a inexpensive pair of reading glasses (e.g. [employer]). The following risk/benefits of treatment were discussed with the patient: No changes, other than pain relief options for tooth pain. Discharge Plan: Uncertain, will depend in part on living and employment options. Ascencion Hinson MD 11/13/2010 13:28 Attending Attestation: I saw and evaluated the patient today. Treatment plan reviewed with the patient and team. I agree with the findings and plan of care as documented in the resident's note. Total time spent directly with patient was 15 minutes of which approximately 10 minutes was spent in counseling (re:addtional consults, rationale for neuropsych testing). An additional 15 minutes wasspent in coordination of care with the multidisciplinary team. Total floor time: 30 min. VIELKA RODRIGUEZ MD Attending Psychiatrist [facility] Pager [phone] * Orlin Shankar - 11/13/2010 2567 EDT Active Multi-Disciplinary problems: ALTERATION IN SLEEP [[id number]] (11/07/10) ANXIETY [095215] (11/07/10) Data Pt asleep After 0030 , Awake From 0230 To 0300 , Pt Given PRN of Benzocaine [place], For Tooth Discomfort. Action: Frequent Observations Response: Cont to observe And note Orlin Shankra RN 11/13/2010 5:04 * Lulú Khanna RN - 11/12/20109 EDT Active Multi-Disciplinary problems: ALTERATION IN SLEEP [750550] (11/07/10) ANXIETY [[id number]] (11/07/10) Data: Pt complained of toothache on right upper side, Hurricaine spray ordered but pt fell asleep, will offer if pt awakes with discomfort. Pt attended group and Played boggle with peers. He ate in the dining room and interacted in appropriate manner. Action: Frequent checks to ensure safety. Discourage isolation. Response: More visible on unit. Took risperidone and Ambien as ordered. Anxiety minimal this shift. Lulú Khanna RN 11/12/2010 22:09 * Marta Mendez - 11/12/2010 1937 EDT Games: S/O: Pt played several games of Sportcut and won two of them. Pt socialized with others in the groupand discussed some of the strategy to the game. A: Inc in participation, inc in relaxation,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
--- OUTSIDE RECORDS SUMMARY | 2024-08-03 10:42 | XMS_ITS | Encounter Summary ---
Author Organization [facility] Address [address] [place] [address] Care Team Providers Care Regulatory Administrator Name Role Phone Tiffanie Strickland MD Primary Care Provider [phone] Reason for Visit * Reason Comments Suicidal Pt walked up to the psych unit requesting to be admitted. Pt states he feels suicidal, but not homicidal. Pt states he's under a lot of stress. Encounter Details Date Type Department Care Team (Late st Contact Info) Description 10/31/2010 10:49 EST - 10/31/2010 14:46 EST Emergency [facility] Emergency Department - [address] [place] [address] [place] [address] [place] [address] [id number] Emergency, MD Jeffery Suicidal ideation; Major depression Discharge Disposition: Home or Self Care Social [...] Sign Reading Time Taken Comments Blood Pressure 161/78 10/31/2010 1056 EST Pulse 83 10/31/2010 1056 EST Temperature 35.9 ??C (96.6 ??F) 10/31/2010 1056 EST Respiratory Rate 14 10/31/2010 1056 EST Oxygen Saturation 97% 10/31/2010 1056 EST Inhaled Oxygen Concentration - - Weight 104.3 kg (230 lb) 10/31/2010 1058 EST Height 177.8 cm (5' 10) 10/31/2010 1058 EST Body Mass Index 33 10/31/2010 1058 EST documented in this encounter Mental Status * Because of a physical, mental, or emotional condition, do you have serious difficulty concentrating, remembering, or making decisions? (5 years old or older) Answer Entry Date Author Yes 10/08/2010 20:51 EST Nigel Khanna RN documented in this encounter Discharge Instructions * Discharge Instructions* [place] - 10/31/2010 14:30 EST Close follow up with counselor and CRISIS. Return to ER if any other problems. * Attachments The following attachments cannot be sent through Care Everywhere. * DEPRESSION TREATMENT: AFTER YOUR VISIT (FAROESE) documented in this encounter Discharge Disposition Disposition Code Departure Means Destination Home or Self Care Walk-out Home documented in this encounter ED Notes * [place] - 10/31/2010 1825 EST DOS: 10/31/2010 Chief Complaint Patient presents with ??? Suicidal Pt walked up to the psych unit requesting to be admitted. Pt states he feels suicidal, but not homicidal. Pt states he's under a lot of stress. The patient is a 45 y.o. male who presents today with Suicidal HPI Comments: Pt presents today after walking into the psych espana and giving a MD a model battleship and stating he wanted her to have before he killed himself. Currently having suicidal ideation butno self harm. States he has a plan in place but will not reveal this. Denies homicidal ideation. Denies drug or alcohol use. States current feeling stem from job loss and divorce. Denies CP, SOB, N/V/D/F. Pt seen approx 2 weeks ago for similar presentation. The history is provided by the patient. Suicidal Additional symptoms of the illness do not include no headaches or no abdominal pain. [...] Vital Signs Temp: 35.9 ??C (96.6 ??F) Temp src: Tympanic Pulse: 83 Resp: 14 SpO2: 97 % BP: 161/78 mmHg BP Device: BP Machine Patient Position: Sitting BP Cuff Location: Left arm O2 Device: None (Room air) Physical Exam Nursing note and vitals reviewed. Constitutional: He appears well-developed and well-nourished. HENT: Head: Normocephalic and atraumatic. [...] Normal range of motion. Neurological: He is alert. He has normal strength. He is not disoriented. No sensory deficit. Skin: Skin is warm and dry. No rash noted. Psychiatric: His speech is normal. Judgment normal. @CAPHIS@ affect is labile. He is withdrawn. Thought content is not paranoid and not delusional. Cognition and memory are normal. He expresses suicidal ideation. He expresses no homicidal ideation. He expresses suicidal plans. He expresses no homicidal plans. Radiology orders: None Procedures ED Course: Pt presents today for suicidal ideation. CRISIS and psych into see pt and felt to be no threat to himself. Will dc home with close fu with CRISIS and conselour. Return to ER if sx increase or any other problems. Discharge Prescriptions No Discharge Prescriptions for this patient MDM Number of Diagnoses or Management Options Major depression: Suicidal ideation: Diagnosis management comments: 3 1. Suicidal ideation (V62.84) 2. Major depression (296.20BE) PCP: Tiffanie Strickland Md 10/31/2010 18:30 * Brigitte Estrada RN - 10/31/2010 1443 EST Belongings returned to pt. Discharge instructions reviewed with pt with understanding. Pt states hewill be f/u with [facility] in [place]. * Brigitte Estrada RN - 10/31/2010 1351 EST Psych here to eval pt * Eric Miller - 10/31/2010 1212 EST Crisis in to evaluate patient * Brigitte Estrada RN - 10/31/2010 1120 EST Assumed care of pt, 1:1 observation started with networking technician. Pt changed out of clothing into paper scrubs and awaiting eval in room. Belongings labeled and placed in belongings closet. documented in this encounter Miscellaneous Notes * Scanned Note-Null - Inpatient, Physician - 10/31/2010 0000 EST documented in this encounter Plan of Treatment Not on file documented as of this encounter Visit Diagnoses Diagnosis Suicidal ideation Major depression Major depressive disorder, single episode, unspecified documented in this encounter Care Teams Regulatory Administrator Relationship Specialty Start Date End Date Tiffanie Strickland MD [address] [place] [id number] PCP - General 10/15/10 10/01/14 documented as of this encounter
--- OUTSIDE RECORDS SUMMARY | 2024-08-03 10:42 | XMS_ITS | Encounter Summary ---
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 aggressive actions have been controlled. Patient is now adamantly denying any further suicidal ideation. Eager for discharge Ovalo I: MDD, severe (provisional); Intermittant Explosive d/o by hx Ovalo II: Defer Ovalo III: None Plan: 1) MDD - Continue citalopram 20mg qday, continue to assess for increase if needed - Now using [id number] qHS for sleep 2) Agitation - Lorazepam 2mg q4h PRN for agitation Chip Mirza DO Psychiatry PGY1 [id number] Attending Addendum: I saw and evaluated the patient today. Treatment and plan reviewed with the team and pt. I agree with the findings and plan of care as documented in the resident's note. Total time 25 min with greater than 50% time in counseling and coordination of care. Vielka Rodriguez MD, FRCPC Attending Psychiatrist (covering) Pager [phone] * Medina Wright, RN - 01/03/2010 1321 EDT Active Multi-Disciplinary problems: INEFFECTIVE COPING [[id number]] (12/23/09) ALTERATION IN SLEEP [66956] (12/23/09) Data: Pt out of room much more today, attended groups, social with other pts selectively. pleased that constipation is resolved, declined miralax has more energy more affect better social skills. Attended group this am. Reading in the kitchen abook he got from [employer] . Action: offer feedback and encouragement Response: focused on discharge and returning to work, improved mood, better control of anger. Medina Wright RN 01/03/2010 1:21 PM * Shiloh Bryant - 01/03/2010 0857 EDT Social Work Progress Note Intervention/Service: Coordination of care, Supportive Therapy and Legal Left message for lawyer Gina ([phone]). Left message for Aurora Luevano at [facility] to advocate for Doug to work with his former therapist. Shiloh Bryant, BURNER SHAFT [phone] * Alda Corbin RN - 01/03/2010 0605 EDT Patient Active Problem List Diagnoses Code ??? Outbursts of anger 312.00M ??? Suicidal ideation V62.84 Data: Pt slept a bit better tonight, but still awake for most of shift. Action: Pt maintained on frequent obs for safety. Played cards with staff for a few hours in zinc plate cutter. Response: Pt slept until 03 with one brief awakening. Has been up and about since 03. Attempted to help staff clean up the kitchen area. Played cards with staff where he showed sense of humor and brighter affect. Overall slept approx 3 hours. Alda Corbin RN 01/03/2010 6:05 AM * Jami Saba RN - 01/02/2010 1723 EDT Active Multi-Disciplinary problems: INEFFECTIVE COPING [30008] (12/23/09) ALTERATION IN SLEEP [21337] (12/23/09) Data: Patient at beginning of shift stated that he was not having any suicidal thoughts at the moment. He stated that he is very worried about his court dates coming up in the next few weeks; he stated that unless he is able to leave here he will not be able to afford a cook frozen dessert. He also stated that he would like to go out to smoke and this is on his mind constantly. Denied pain as he had a BM this afternoon. Stated he was very tired as he did not sleep the night before related to having abdominal pain from not have a BM. Action: 1:1 Response: Pt. In room playing with 12 decks of cards, ilolative through most of shift. Passing +++ flatulence while in room.. Jami Saba RN 01/02/2010 5:23 PM * Shiloh Bryant - 01/02/2010 1542 EDT Social Work Progress Note Intervention/Service: On-going assessment and Supportive Therapy Met with Doug and his association executive Cody. Cody states that Doug seems to be getting back to his old self. He was glad to see that Doug was getting help and doing better. He wants to be supportive but realizes he can not be the sole support person for Doug. He was pleased to know that Doug willbe connected with [facility] upon discharge. Doug agreed to allow this pattern chart writer to contact a cook frozen dessert on his behalf. He would like to leave the hospital to get back to work and make money. Shiloh Bryant [employer] [id number] * Jennifer Watson MD - 01/02/2010 1113 EDT Service Line Bus Cleaner Progress Note 01/02/2010 LOS: 10 days Legal status: Involuntary Locus of harm: 4 Observation level: Frequent Reason for admission: SI and aggressive behavior Last 24 hours: Per nursing, the patient has done well in the absence of constant observation. Very little sleep last night but refused ambien to sleep. Continues to note constipating which is quite distressing to him. He has remained tense and loud with nursing On exam, the patient has a strong somatic focus, complaining mostly about his bowels, saying I need some Martha to clear that out and noted we should stick a tube down my throat and blow that blockage out. There is an attempt to get him off of this topic, and he notes that he is not feeling any more suicidality, but he continues to make provocative and impulsive statements such as I could just jump off a building. He also complains about his feet and legs hurting and then returns the topic to his bowels. Meds: Citalopram 20mg qday Lorazepam 2mg q4h PRN Zolpidem 10mg qHS Colace Senna Milk of Magnmana Miralax Objective: BP 154/72 Pulse 72 Temp 35.8 ??C (96.4 ??F) Resp 20 Ht 1.778 m (5' 10) Wt 88.724 kg (195lb 9.6 oz) SpO2 94% Mental Status Exam: Appropriately groomed and dressed middle aged man. Upset this morning but willing to engage. Manner is somewhat angry. Psychomotor agitation. Good eye contact. Gait is steady. Speech is of normal rate and rhythm, fluent and spontaneous. Mood really irritable and affect is anxious, irritable and congruent. Thought process is rigid, but logical and coherent. Goal oriented. Thought content is somatic in focus, denies SI and HI. Not responding to internal stimuli. No delusional content, but strong cognitive distortions that are fixed ideas. AAOx3. Attends well but concentration impaired. Insight limited, judgement limited. Labs/Imaging: No new Assessment: Patient Active Problem List Diagnoses Code ??? Outbursts of anger 312.00M ??? Suicidal ideation V62.84 This is a 44yo white male who presents to the unit on EE with impulsive rage and suicidality in the wake of a domestic abuse charge and a restraining order pressed against him by his soon to be ex-. Psychiatric hospitalization as a child. Taking medication as prescribed, with limited b enefit thus far however his aggressive actions have been controlled. Patient is now adamantly denying any further suicidal ideation, and will be given a trial off of constants as the patient has demonstrated safe behavior for the last 48 hours. Now constipated, we are addressing this. Ovalo I: MDD, severe (provisional); Intermittant Explosive d/o by hx Ovalo II: Defer Ovalo III: None Plan: 1) MDD - Continue citalopram 20mg qday, continue to assess for increase if needed - Now using [id number] qHS for sleep 2) Agitation - Lorazepam 2mg q4h PRN for agitation 3) Constipation - Colace, Senna, Milk of Mag, Miralax Chip Mirza DO Psychiatry PGY1 [id number] I have seen and examined the patient. I agree with the findings and plan of care as documented in the resident's note. I personally spent 35 minutes on this patient, greater than 50% time spent in counseling and/or coordination of care. JENNIFER WATSON MD Attending, Inpatient Psychiatry, [facility] * Glenny Kaiser RN - 01/02/2010 1111 EDT Active Multi-Disciplinary problems: INEFFECTIVE COPING [35896] (12/23/09) ALTERATION IN SLEEP [22890] (12/23/09) Data: pt had been angry and agitated in the a.m secondary to having abdominal pain because of constipation. Pt stated he was at the end of his rope and became tense. Pt accepted Ativan 2 mg which washelpful and allowed patient to nap. Pt has received bowel medication. Pt has thoughts of self harm,is quite frustrated with his situation and has difficulty articulating his feelings and thoughts. AD L's are good, VSS. Action: pt has been given scheduled and prn medications. Pt has been observed frequently and has been given supportive nursing interactions. Response: pt is napping at end of the morning. Addendum: Pt has had a bowel movement and feels much more comfortable. Pt's affect and mood have improved, he is much more spontaneous. Pt's Powder Operator in to visit this afternoon which has also encouraged verbalization. Pt is more positive this afternoon, would like a plan for discharge so that he can begin to make some income. Glenny Kaiser RN 01/02/2010 11:13 AM * Alda Corbin RN - 01/02/2010 0606 EDT Patient Active Problem List Diagnoses Code ??? Outbursts of anger 312.00M ??? Suicidal ideation V62.84 Data: Pt awake entire security shift supervisor. Action: Pt maintained on frequent obs for safety. Offered prn meds. Response: Pt awake all night. Reports discomfort from constipation but declined any prn meds. Upsethe could not sleep, but also declined offers of prn meds to help with sleep. I have requested prunejuice be sent on pt's breakfast tray. Continue to monitor. Alda Corbin RN 01/02/2010 6:06 AM * Job Hurd - 01/01/2010 2135 EDT Active Multi-Disciplinary problems: INEFFECTIVE COPING [18565] (12/23/09) ALTERATION IN SLEEP [22150] (12/23/09) Data: Pt frequent obs status, no mention of self harm this shift. ambulating in matias and several trips to the tv room. Remains friendly with his male neighbor.. Affect less blunted but not as yet bright. Biggest concern at present is constipation, given mom po prn at 2030, states he had a hard bowel movement yesterday. Action continue frequent obs, offer stress management and clear problem solving. Bowel management as needed. Response: No self harm gestures or remarks today, more conversational. States that apples and applejuice usually help move his bowels, and had 2 sliced apples (too poor dentition for whole apple) and 2 apple juices. No results so far. Job Hurd RN 01/01/2010 9:35 PM * Jennifer Wtason MD - 01/01/2010 1523 EDT Service Line Bus Cleaner Progress Note 01/01/2010 LOS: 9 days Legal status: Involuntary Locus of harm: 4 Observation level: Frequents Reason for admission: Suicidal Ideation and aggressive outbursts Last 24 hours: Per nursing, the patient has remained safe, without any further suicidal gestures. He only slept for a few hours last night, and he continues to distract himself with cards and puzzles. On exam, the patient inquires as to how long he will have to remain on constants, and we have a discussion about his impulsive declarations of self harm, and how that results in specific measures, such as constant observations. He recognizes that in preparation for discharge, we will need to work around the ideas that he has about court dates and have effective measures in place to help support him. He denies any further suicidality while here on the unit, and emphasizes that time is of the essence regarding the court date. 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 Continues ZAPal warfare metaphors. Meds: Citalopram 20mg qday Lorazepam 2mg q4h PRN Zolpidem 10mg qHS Objective: BP 116/58 Pulse 63 Temp 35.5 ??C (95.9 ??F) Resp 18 Ht 1.778 m (5' 10) Wt 88.724 kg (195lb 9.6 oz) SpO2 95% Mental Status Exam: Appropriately dressed and groomed middle aged male seated at his desk doing a puzzle. His behavior is congenial and he continues to work on the puzzle throughout the interview. Behavior is unremarkable. Agitation develops towards the end of the interview. Gait is steady. Mood How would you feel with all these bombs dropping? and affect is dysthymic, anxious, congruent to hisideation. Thought process is linear, coherent, reasonably logical and goal directed. Future oriented. Thought content continues to revolve around legal issues. Denies suicidal ideation, plan or intent while in the hospital. No overt HI or aggressions. Denies HI. Not responding to internal stimuli and no obvious delusional systems. Attends fairly with fair concentration. Insight limited, judgementlimited and impulsive. Labs/Imaging: No new Assessment: Patient Active Problem List Diagnoses Code ??? Outbursts of anger 312.00M ??? Suicidal ideation V62.84 This is a 44yo white male who presents to the unit on EE with impulsive rage and suicidality in the wake of a domestic abuse charge and a restraining order pressed against him by his soon to be ex-. Psychiatric hospitalization as a child. Taking medication as prescribed, with limited b enefit thus far however his aggressive actions have been controlled. Patient is now adamantly denying any further suicidal ideation, and will be given a trial off of constants as the patient has demonstrated safe behavior for the last 48 hours. Ovalo I: MDD, severe (provisional); Intermittant Explosive d/o by hx Ovalo II: Defer Ovalo III: None Plan: 1) MDD - Continue citalopram 20mg qday, continue to assess for increase if needed - Now using [id number] qHS for sleep 2) Agitation - Lorazepam 2mg q4h PRN for agitation Chip Mirza, DO Psychiatry PGY1 [id number] I have seen and examined the patient. I agree with the findings and plan of care as documented in the resident's note. I personally spent 35 minutes on this patient, greater than 50% time spent in counseling and/or coordination of care. JENNIFER WATSON MD Attending, Inpatient Psychiatry, [facility] * Glenny Kaiser RN - 01/01/2010 8334 EDT Active Multi-Disciplinary problems: INEFFECTIVE COPING [98726] (12/23/09) ALTERATION IN SLEEP [31788] (12/23/09) Data: pt had been on constant observation in the morning and asked when it could be discontinued. Pt stated that he did not have SI and that he needed to get working on a plan for his defense in court. 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 Pt has been working on a puzzle in his room most of this shift, has walked around the unit, has been calm, pleasant and appropriate. Constant observation has been discontinued which the patient appreciates. Pt denies having pain, appears to be moderately depressed, is quiet. Pt has complained of constipation, M.D aware. Action: pt has been given scheduled medications, has been observed frequently this afternoon and has been given supportive nursing interactions. Response: pt is stable and in his room at the end of this shift. Glenny Kaiser RN 01/01/2010 2:25 PM * Orlin Shankar - 01/01/2010 0620 EDT Active Multi-Disciplinary problems: INEFFECTIVE COPING [58839] (12/23/09) ALTERATION IN SLEEP [96856] (12/23/09) Data: Pt only asleep from 0230 to 0530 , No suicide gestures Action: constant observations Response:cont constant observations Orlin Shankar RN 01/01/2010 6:22 AM * Job Hurd - 12/31/2009 1956 EDT Active Multi-Disciplinary problems: INEFFECTIVE COPING [35370] (12/23/09) ALTERATION IN SLEEP [71604] (12/23/09) Data: Pt remains on 1:1 constant obs status, no gestureS of self harm this shift. ambulating in matias and several trips to the tv room. Remains friendly with his male neighbor.. Returned the additional deck of cards and was seen working on a large circular jigsaw puzzle in his room. When he had a little difficulty finding his tray for supper he decided he did not want to eat. The Tray was right there in the dining area as expected. Pt completed his puzzle and put it away. Declined Hs. Ambien. Tobed at 2030 and up briefly at 2224. Action continue constant obs, offer stress management and clear problem solving. Response: No self harm gestures or remarks today, remains distant with flat affect and low voice. Job Hurd RN 12/31/2009 7:57 PM * Federica Tejada RN - 12/31/2009 1515 EDT Active Multi-Disciplinary problems: INEFFECTIVE COPING [43543] (12/23/09) ALTERATION IN SLEEP [27623] (12/23/09) Data: Feeling Safe Action: Patient stated You don't have to worry about me until Wednesday. On Wednesday some legal issueswill be resolved and then we will see how I am. Response:Patient continues on constant observations. He can be very pleasant and positive when his employment is discussed. 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 He gets a lot of satisfaction from doing puzzles. He states that putting the pieces together and seeing a picture developing relaxes him. He verbalized about the difficult life that he has had and how he never had an opportunity to learn to manage his anger. Extra room check completed. Federica Tejada RN 12/31/2009 3:16 PM * Shiloh Bryant - 12/31/2009 1438 EDT Social Work Progress Note Intervention/Service: Supportive Therapy Spoke with [facility] karyn Pizarro re: notice that Doug received from [employer]. Apparently there is a conflict of interest with the cook frozen dessert representing Doug. Marilu explained that a conflict counselor aide would be found if the supervisor sample determined that it was a sufficient conflict of interest. Did inform him that I contacted [employer] to see if they can be of assistance in this matter. Doug wants to be discharged so he can start working and make money to get a cook frozen dessert for the domestic abuse case. He declined assistance in finding a cook frozen dessert and said he is willing to pay for a cook frozen dessert. MARINA Crowley 5395 * Ema Joseph - 12/31/2009 1239 EDT Self Esteem Tools Group: S/O: Pt attended group and seemed sullen and withdrawn after limit was set for group re: no negative self-talk during the group as the group's focus was to assist participants in increasing their self esteem. Pt declined to share what he had written on his self-affirmation worksheet. At times pt made comments under his breath to a peer sitting next to him but repeatedly declined to repeat what hesaid so the whole group could hear it. A: Struggling with limits set for the group. Sullen and withdrawn. Declining to share openly or explore strengths and abilities perhaps because he does not believe he has any. P: Continued participation in therapeutic groups. * Jennifer Watson MD - 12/31/2009 1140 EDT Service Line Bus Cleaner Progress Note 12/31/2009 LOS: 8 days Legal status: Involuntary Locus of harm: 4 Observation level: Constants Reason for admission: Suicidal Ideation and Aggressive Behavior Last 24 hours: Per nursing, the patient has been under good control on the unit, although he remains irritable with interactions, reiterating his concerns about the legal issues. Noted by nursing overnight to be tying together multiple garments in what was seen to be a gesture of self harm, but wasredirected. Has been engaging in solo activities including solitaire and puzzles to pass time. On exam, the patient's focus is on his legal issues, which he describes as bombs you keep droppingon me and he is very concrete around ideas of director fundraising, refusing to accept that we are working to get him a legal entity controller estate attorney because i have it right here in writing, the cook frozen dessert signed off. He continues to note how his court date will be a turning point for him one way or the other and again compares the situation to the [place] of [place]. Interestingly, he will not address any questions of suicidality, instead reflecting the question in a way that suggests some elements of regression: Sohow do you want me to answer? Meds: Citalopram 20mg qday Lorazepam 2mg q4h PRN Zolpidem 10mg qHS Objective: BP 123/75 Pulse 62 Temp 36.2 ??C (97.2 ??F) Resp 16 Ht 1.778 m (5' 10) Wt 88.724 kg (195lb 9.6 oz) SpO2 98% Mental Status Exam: Appropriately dressed and groomed middle aged man seated at his desk putting together a puzzle. Manner is irritable, and behavior is unremarkable. Mild psychomotor agitation, good(but intense) eye contact noted. Speech is of normal rate and rhythm, consisting of short phrases. Fluent and spontaneous. Mood I feel trapped and affect is irritable, anxious, congruent, with someinappropriate chuckles. Thought process is linear, coherent and logical, with the occasional tangentiality. Thought content revolves around his legal issues, and he poses this in dramatic metaphors of [place]. Prominent polarization and catastrophizing. Will not answer questions about suicidality, asking instead What do you want me to say? No overt HI or aggressive ideation. Not responding to internal stimuli, no obvious delusional systems. Attend well with good concentration. Insight and judgement remain limited and impulsive. Labs/Imaging: No new labs Assessment: Patient Active Problem List Diagnoses Code ??? Outbursts of anger 312.00M ??? Suicidal ideation V62.84 This is a 44yo white male who presents to the unit on EE with impulsive rage and suicidality in the wake of a domestic abuse charge and a restraining order pressed against him by his soon to be ex-. Psychiatric hospitalization as a child. Taking medication as prescribed, with limited b enefit thus far however his aggressive actions have been controlled. One attempted hanging on the unit, now is back on constant observation. Patient is a high risk for completed suicide. There is a possibility he will remain a significant risk to himself until his court date in early January. In addition, due to the patient's disordered childhood and early hospitalization, there is the potential forregression and acting out behavior. Ovalo I: MDD, severe (provisional); Intermittant Explosive d/o by hx Ovalo II: Defer Ovalo III: None Plan: 1) MDD - Continue citalopram 20mg qday, continue to assess for increase if needed - Now using [id number] qHS for sleep 2) Agitation - Lorazepam 2mg q4h PRN for agitation Chip Mirza, DO Psychiatry PGY1 [id number] I have seen and examined the patient. I agree with the findings and plan of care as documented in the resident's note. I personally spent 45 minutes on this patient, greater than 50% time spent in counseling and/or coordination of care. JENNIFER WATSON MD Attending, Inpatient Psychiatry, [facility] * Haley Carreon - 12/31/2009 0952 EDT Social Work Progress Note Intervention/Service: Coordination of care Assisted Doug in phone interview with Concepcion Hudson at [facility] for outpatient services. Doug was able to complete the interview with some assistance. He learned that the therapist he worked with in 1982 is still at the agency. There is a long wait list for services. Because of his risk factors, Doug may be seen sooner. Aurora Luevano is the call or contact centre team leader and will schedule the appointment when we know when Doug will bedischarged. * Orlin Shankar - 12/31/2009 0627 EDT Active Multi-Disciplinary problems: INEFFECTIVE COPING [[id number]] (12/23/09) ALTERATION IN SLEEP [76781] (12/23/09) Data: Pt worried about more court papers, only asleep from 0200 to 0430, Up pacing or working on puzzles at his desk, questioned if suicidal @ present, states that For him to know Action:constant observations * Cont constants Orlin Shankar RN 12/31/2009 6:28 AM * Job Hurd - 12/30/2009 1838 EDT Active Multi-Disciplinary problems: INEFFECTIVE COPING [72180] (12/23/09) ALTERATION IN SLEEP [88119] (12/23/09) Data: Pt remains on 1:1 constant obs status, was seen several times with an article of clothing in a gesture of self harm but is easily dissuaded with gentle conversation. Time spent in the bathroom,ambulating in matias and several trips to the tv room. Seems friendly with his male neighbor. Refusedprn ativan. Requested an additional deck of cards and was seen manipulating the 2 decks together, seemed to be playing a large game of solitaire for well over an hour.. conttinue constant obs, offer stress management and clear problem solving. Response: While he continues to describe the futility of his problems - 3 court dates and a fatalistic outlook - his despair lacks urgency. Job Hurd RN 12/30/2009 6:38 PM * Ema Joseph - 12/30/2009 1656 EDT Seeking Safety: S/O: Pt attended full hour of educational group re: CBT Skills for increasing compassion toward ones' self. Pt reviewed handout materials re: harsh vs compassionate self-talk as well as ways to increase compassion. Pt alert and attentive throughout group and stayed stuck on the idea that he is worthless and has too many negative stressors to change his thinking to be more compassionate toward himself. A: Alert, engaged, attentively listening to group discussion and participating in discussion at times, attempting to debate with the group how awful his situation is to prove that he can not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 * Scanned Note-Null - Inpatient, Physician - 01/23/2010 1524 EDT * Scanned Note-Null - Inpatient, Physician - 01/19/2010 1114 EDT * Scanned Note-Null - Inpatient, Physician - 01/19/2010 0719 EDT * Scanned Note-Null - Inpatient, Physician - 01/18/2010 1347 EDT * Scanned Note-Null - Inpatient, Physician - 01/18/2010 1347 EDT * Plan of Care - Inpatient, Physician - 01/18/2010 1347 EDT * Plan of Care - Hailee Mcdermott RN - 01/10/2010 0626 EDT Problem: ALTERATION IN SLEEP Goal: Reports Nightly Sleep, Duration And Quality Intervention: Document duration, quality of sleep and reasons Active Multi-Disciplinary problems: INEFFECTIVE COPING [42627] (12/23/09) ALTERATION IN SLEEP [73788] (12/23/09) Data: Patient slept better, voicing no complaints through this shift. He is excited about dischargeand mentions it to everyone he is in contact with. Affect is brighter. He does not appear anxious. Action: Support, offer encouragement, Maintained on routine obs. Assessed for pain. Assist in preparing for discharge today. Response: Patient has been pleasant tonight. Slept better than prior nights. Total of 4.5 hours Hailee Mcdermott RN 01/10/2010 6:24 AM * Plan of Care - Norah Reed RN - 01/08/2010 1141 EDT Problem: INEFFECTIVE COPING Goal: Demonstrates Healthy Coping Skills Active Multi-Disciplinary problems: INEFFECTIVE COPING [03335] (12/23/09) ALTERATION IN SLEEP [81463] (12/23/09) Data: Perseverates over legal problems and feeling cooped up in here. Action: Monitor for safety on the unit, assist pt to redirect anger through constructive activities. Response:Pt seems to think that a court date was postponed and that means he has to stay here longer. He will not accept any reassurance from me on this issue. He is illogical and makes references tohaving been in war. Often raising his voice. Restless, walking halls. Norah Reed RN 01/08/2010 11:41 AM * Plan of Care - Basia Vance RN - 01/07/2010 0438 EDT Problem: ALTERATION IN SLEEP Goal: Reports Nightly Sleep, Duration And Quality Outcome: Ongoing 01/07/10: 1 brief waking prior to 0330, out to kitchen for juice, 1:1, back to bed 0430, slept [id number] * Plan of Care - Leela Keith RN - 01/05/2010 1131 EDT Active Multi-Disciplinary problems: INEFFECTIVE COPING [99312] (12/23/09) ALTERATION IN SLEEP [73077] (12/23/09) Data: Pt A&Ox4. Pt denies HI. Pt ambivalent about SI but agrees to remain safe here. Pt affect blunted. Mood, terrible, my main date is in 2 weeks. Pt very anxious all day. Pt isolated to his room early in the afternoon trying to work on a puzzle. Action: Encourage groups. Offer 1:1 support. Monitor for safety. Pt remains ADELSO frequent observation. Pt received Ativan 2mg at 1350. Response: Pt very worried about court. Pt reports, the big round is in under two weeks, first round tomorrow. I feel like I'm on row. I can't sleep I am too preoccupied. Pt pacing around the unit. Affect remains blunted. Leela Keith RN 01/05/2010 11:31 AM * Plan of Care - Leela Keith RN - 01/05/2010 1109 EDT Problem: INEFFECTIVE COPING Goal: Participates In Unit Activities Outcome: Ongoing Active Multi-Disciplinary problems: INEFFECTIVE COPING [60503] (12/23/09) ALTERATION IN SLEEP [03689] (12/23/09) Data: Pt hopeless. Pt does not feel there is anything he can take control of in his life. Pt reports, I feel like I am in a whirlpool, going around and around. Pt social with peers. Action: Encourage groups. Encourage social interaction. Response: Pt attended stress reduction. Pt walking around the unit talking with peers. Pt affect blunted. Mood Not good. Pt quiet but engagable. Leela Keith RN 01/05/2010 11:06 AM * Plan of Care - Basia Vance RN - 12/29/2009 0414 EDT Problem: ALTERATION IN SLEEP Goal: Informs Staff If Unable To Sleep 12/27: pt slept less than 4 hours spite of ambien and ativan 12/28: pt slept longer stretch tonight, close to 5 hours * Plan of Care - Akilah Moreno RN - 12/27/2009 3690 EDT Active Multi-Disciplinary problems: INEFFECTIVE COPING [44883] (12/23/09) ALTERATION IN SLEEP [87474] (12/23/09) Data: Pt irritable in beginning of shift, but was pleasant and talkative later in evening. Apologized for being so grumpy. Played card games with others on the unit. Spoke of his worries about upcoming court dates. Also verbalized frustration of not being able to sleep well. Action: 1:1 conversations. Offered encouragement. Ambien 10 mg ordered for HS. Response: After start of shift, pt pleasant. Interacted well with others. Akilah Moreno RN 12/27/2009 10:30 PM * Plan of Care - Nicole Price RN - 12/24/2009 0621 EDT Problem: ALTERATION IN SLEEP Goal: Reports Nightly Sleep, Duration And Quality Active Multi-Disciplinary problems: INEFFECTIVE COPING [32877] (12/23/09) ALTERATION IN SLEEP [13727] (12/23/09) Data: See observation record. Action: Continues on constant observations during the night due to si and history of outbursts of anger. Response: Appeared to sleep comfortably through the night. Awake briefly at 0545, pleasant, flat affect, depressed mood; returned to sleep. Nicole Price RN 12/24/2009 6:18 AM documented in this encounter Plan of Treatment Not on file documented as of this encounter Procedures Procedure Name Priority Date/Time Associated Diagnosis Comments ORDERS - SCANNED 01/18/2010 13:4 7 EDT SCREENING GLUCOSE Routine 12/23/2009 12: 25 EDT documented in this encounter Results * ORDERS - SCANNED (01/18/2010 13:47 EDT) 01/18/2010 13:4 7 EDT Narrative 01/18/2010 14:08 EDT Ordered by an unspecified provider. Transcriptions Inpatient, Physician - 01/18/2010 13:47 EDT Physician Inpatient MD ADMISSION ORDERABLES Pinky tracie Result * SCREENING GLUCOSE (12/23/2009 12:25 EDT) Glucose, Screening 82 70 - 100 mg/dl [facility] Blood specimen (specimen) 12/23/2009 12:25 EDT 12/23/2009 12:34 EDT us Loyda Castillo MD CHEMISTRY & BLOOD GAS ORDER NURIA Final Result [facility] [address] [place] [address] documented in this encounter Visit Diagnoses Diagnosis Outbursts of anger Undersocialized conduct disorder, aggressive type, unspecified Suicidal ideation Major depression Major depressive disorder, single episode, unspecified documented in this encounter Administered Medications Inactive Administered Medications - up to 3 most recent administrations Medication Order MAR Action Action Date Dose Rate Site citalopram (CELEXA) tablet 20 mg 20 mg, oral, DAILY, First dose on Wed12/26/09 at 1315, Until Discontinued, Routine Given 01/07/2010 9:00 EDT 20 mg Given 01/05/2010 9:00 EDT 20 mg Given 01/04/2010 9:00 EDT 20 mg citalopram (CELEXA) tablet 40 mg 40 mg, oral, DAILY, First dose (after last modification) on Wed01/08/10 at 0900, Until Discontinued, Routine Given 01/09/2010 9:00 EDT 40 mg Given 01/08/2010 9:00 EDT 40 mg docusate sodium (COLACE) capsule 100 mg 100 mg, oral, 2 TIMES DAILY, First dose on Wed01/02/10 at 0900, Until Discontinued, Routine Given 01/09/2010 21:40 EDT 1 00 mg Given 01/08/2010 21:55 EDT 100 mg Given 01/06/2010 21:00 EDT 100 mg hydrocortisone (ANUSOL-HC) 2.5 % rectal cream rectal, 2 TIMES DAILY, First dose on Wed01/03/10 at 2100, Until Discontinued Given 01/09/2010 21:00 EDT Given 01/08/2010 21:00 EDT Given 01/06/2010 21:00 EDT lorazepam (ATIVAN) 1 mg tablet 1 dose, Starting on Wed12/23/09 at 0238, Until Wed12/23/09 at 0430 Given 12/23/2009 4:30 EDT mg lorazepam (ATIVAN) tablet 1 mg 1 mg, oral, EVERY 4 HOURS PRN, Starting on Wed12/23/09 at 0232, Until Wed12/23/09 at 1441, Anxiety, Routine Given 12/23/2009 14:34 EDT 1 mg Given 12/23/2009 8:51 EDT 1 mg lorazepam (ATIVAN) tablet 2 mg 2 mg, oral, EVERY 4 HOURS PRN, Starting on Wed12/23/09 at 1438, Until Wed01/10/10 at 1138, Anxiety, Routine Given 01/06/2010 11:45 EDT 2 mg Given 01/05/2010 13:50 EDT 2 mg Given 01/05/2010 1:02 EDT 2 mg magnesium hydroxide (MILK OF MAGNESIA) 400 mg/5 mL suspension 30 mL 30 mL, oral, DAILY PRN, Starting on Wed01/01/10 at 1429, Until Wed01/10/10 at 1138, Constipation, Routine Given 01/01/2010 20:05 EDT 30 mL Given 01/01/2010 15:05 EDT 30 mL nicotine (NICODERM CQ) 21 mg/24 hr patch 1 Patch 1 Patch, transdermal, DAILY, First dose on Wed12/23/09 at 1500, Until Discontinued, Routine Given 12/31/2009 9:00 EDT 1 P atch Given 12/30/2009 9:00 EDT 1 Patch Given 12/29/2009 9:00 EDT 1 Patch nicotine (NICODERM CQ) patch Removal transdermal, AT BEDTIME, First dose on Wed12/23/09 at 2100, Until Discontinued Given 01/09/2010 21:00 EDT Given 01/08/2010 21:00 EDT Given 01/06/2010 21:00 EDT nicotine (NICOTROL) 10 mg inhaler 1 Inhaler 1 Inhaler, inhalation, EVERY 2 HOURS PRN, Starting on Wed12/23/09 at 0236, Until Wed01/10/10 at 1138, Smoking Cessation, Routine Given 12/29/2009 12:36 EDT 1 Inhaler Given 12/28/2009 10:50 EDT 1 Inhaler Given 12/24/2009 9:40 EDT 1 Inhaler nicotine inhaler (delivery device) 1 Each, inhalation, PRN, Starting on Wed12/23/09 at 0236, Until Wed01/10/10 at 1138, Smoking Cessation Given 12/24/2009 9:40 EDT 1 Each olanzapine (ZYPREXA) tablet 10 mg 10 mg, oral, AT BEDTIME, First dose on Wed12/23/09 at 2100, Until Discontinued, Routine Given 12/24/2009 18:26 EDT 10 mg Given 12/23/2009 21:57 EDT 10 mg olanzapine (ZYPREXA) tablet 2.5 mg 2.5 mg, oral, AT BEDTIME, 1 dose, First dose on Wed01/06/10 at 2245, Routine Given 01/06/2010 22:45 EDT 2.5 mg olanzapine (ZYPREXA) tablet 2.5 mg 2.5 mg, oral, AT BEDTIME, First dose on Wed01/07/10 at 2100, Until Discontinued, Routine Given 01/08/2010 21:55 EDT 2 .5 mg olanzapine (ZYPREXA) tablet 5 mg 5 mg, oral, AT BEDTIME, First dose (after last modification) on Wed12/25/09 at 2100, Until Discontinued, Routine Given 12/26/2009 21:05 EDT 5 mg Given 12/25/2009 23:58 EDT 5 mg olanzapine (ZYPREXA,ZYDIS) disintegrating tablet 5 mg 5 mg, oral, NOW X1, 1 dose, On Wed12/23/09 at 1000, Routine Given 12/23/2009 10:30 EDT 5 mg olanzapine (ZYPREXA,ZYDIS) disintegrating tablet 5 mg 5 mg, oral, NOW X1, 1 dose, On Wed01/06/10 at 1145, Routine Given 01/06/2010 11:45 EDT 5 mg PEG 3350-Electrolytes (MIRALAX) packet 17 g 17 g, oral, DAILY, First dose on Wed01/02/10 at 0900, Until Discontinued, Routine Given 01/02/2010 9:00 EDT 17 g senna (SENOKOT) tablet 1 Tab 1 Tablet, oral, 2 TIMES DAILY, First dose on Wed01/02/10 at 0900, Until Discontinued, Routine Given 01/09/2010 21:40 EDT 1 Tablet Given 01/08/2010 21:55 EDT 1 Tablet Given 01/06/2010 21:00 EDT 1 Tablet zolpidem (AMBIEN) tablet 10 mg 10 mg, oral, AT BEDTIME, First dose on Wed12/27/09 at 2100, Until Discontinued, Routine Given 01/09/2010 21:40 EDT 10 mg Given 01/08/2010 21:55 EDT 10 mg Given 01/06/2010 22:45 EDT 10 mg documented in this encounter Active and Recently Administered Medications Times are shown in EDT. Scheduled Medication Order 01/08/2010 01/09/2010 01/10/2010 citalopram (CELEXA) tablet 40 mg 40 mg, oral, DAILY, First dose (after last modification) on Wed01/08/10 at 0900, Until Discontinued, Routine 899 (Given - Provider: Norah Reed RN) 899 (Given - Provider: Norah Reed RN) docusate sodium (COLACE) capsule 100 mg (CANCELED) 100 mg, oral, 2 TIMES DAILY, First dose on Wed01/02/10 at 0900, Until Discontinued, Routine 899 (Not Given - Provider: Norah Reed RN - Reason: Patient/family refused)2154 (Given - Provider: Lulú Khanna RN) 899 (Not Given - Provider: Norah Reed RN - Reason: Patient/family refused)2139 (Given - Provider: Lulú Khanna RN) hydrocortisone (ANUSOL-HC) 2.5 % rectal cream (CANCELED) rectal, 2 TIMES DAILY, First dose on Wed01/03/10 at 2100, Until Discontinued 899 (Not Given - Provider: Norah Reed RN - Reason: Patient/family refused)2099 (Given - Provider: Lulú Khanna RN) 899 (Not Given - Provider: Norah Reed RN - Reason: Patient/family refused)2099 (Given - Provider: Lulú Khanna RN) nicotine (NICODERM CQ) patch Removal (CANCELED) transdermal, AT BEDTIME, First dose on Wed12/23/09 at 2100, Until Discontinued 2099 (Given - Provider: Lulú Khanna RN) 2099 (Given - Provider: Lulú Khanna RN) olanzapine (ZYPREXA) tablet 2.5 mg (CANCELED) 2.5 mg, oral, AT BEDTIME, First dose on Wed01/07/10 at 2100, Until Discontinued, Routine 2154 (Given - Provider: Lulú Khanna RN) senna (SENOKOT) tablet 1 Tab (CANCELED) 1 Tablet, oral, 2 TIMES DAILY, First dose on Cat 01/02/10 at 0900, Until Discontinued, Routine 0900 (Not Given - Provider: Norah Reed RN - Reason: Patient/family refused)2154 (Given - Provider: Lulú Khanna, RAFAEL) 0900 (Not Given - Provider: Norah Reed RN - Reason: Patient/family refused)2139 (Given - Provider: Lulú Khanna, RN) zolpidem (AMBIEN) tablet 10 mg (CANCELED) 10 mg, oral, AT BEDTIME, First dose on Wed12/27/09 at 2100, Until Discontinued, Routine 2154 (Given - Provider: Lulú Khanna, RAFAEL) 2139 (Given - Provider: Lulú Khanna RN) documented in this encounter Orders Medications Ordered That Ulysses ht Not Have Been Administered Count Last Ordered Date First Ordered Date lorazepam (ATIVAN) tablet 2 mg 1 01/06/2010 olanzapine (ZYPREXA) intramu scular injection 10 mg 1 01/06/2010 olanzapine (ZYPREXA) tablet 5 mg 2 01/07/20 10 12/24/2009 hemorrhoidal (ANUSOL) 1-12.5 % ointment Oint 1 01/03/2010 sodium phosphate (FLEET) enema 1 Enema 1 Benzocaine 20 % aerosol spray 1 12/24/2009 olanzapine (ZYPREXA) tablet 10 mg 1 010 olanzapine (ZYPREXA,ZYDIS) d isintegrating tablet 5 mg 1 12/23/2009 Diet Count Last Ordered Date First Orde red Date DIET REGULAR 1 12/23/2009 Nursing Count Last Ordered Date First Orde red Date NURSING COMMUNICATION 1 12/26/2009 Behavioral Health Services Count Last Ordered D ate First Ordered Date OBSERVATION LEVEL 1 01/09/2010 LOCUS RISK OF HARM 1 12/23/2009 RESTRICTIONS 1 12/23/2009 VOLUNTARY/INVOLUNTARY 1 12/23/2009 Admission Count Last Ordered Date First Orde red Date NOTIFY PPS OF DISCHARGE COMPLETE 1 01/11/20 10 ADMIT TO INPATIENT 1 12/23/2009 TEACHING SERVICE 12/23/2009 Transfer Count Last Ordered Date First Orde red Date CHANGE ATTENDING TO: 1 12/23/2009 Discharge Count Last Ordered Date First Orde red Date DISCHARGE PATIENT 1 01/10/2010 documented in this encounter Care Teams Physical Therapy Manager Relationship Specialty Start Date End Date Lesa Garnett NP CNM [address] [place] [address], [address] [place] [address] PCP - General 12/23/09 03/20/10 documented as of this encounter
[2024-08-03 15:52] LABS: Anion Gap 9.1 mmol/L (3-11); BUN 13 mg/dL (7-18); CO2 27.9 mmol/L (21.0-32.0); CREATININE 0.8 mg/dL (0.70-1.30); Calcium 9.3 mg/dL (8.5-10.1); Chloride 104 mmol/L (98-107); Estimated GFR 101.32 (mL/min/1.73m2); Glucose 106 mg/dL (74-106); Potassium 4.4 mmol/L (3.5-5.1); Sodium 141 mmol/L (136-145); Vitamin B12 466 pg/mL (193-986)
== END 2024-08-03 10:39 | disposition home or self-care (01) ==
LOC: NCHCN 10:38
PROVIDERS: PCP Nurse Practitioner Family; Visit Provider Nurse Practitioner Family
DX: I42.0 Dilated cardiomyopathy (principal); M79.672 Pain in left foot
CPT/HCPCS: 80048; 82607

== ENCOUNTER 2024-08-10 11:54 | Emergency (ER) | payer MEDICARE, SELFPAY ==
[2024-08-10] VITALS (18 sets, daily range): BP systolic 106–129; BP diastolic 48–74; PULSE 48–60; RESP 15–22; TEMP 36.4; O2SAT 91–96
--- NOTE | 2024-08-10 12:00 | RT.EKG_ITS ---
APPROVED REPORT Exam: Resting ECG Reason for Exam: Patient Location: E HR:61 bpm ECG Measurements Heart Rate 61 AXIS NE 166 P 21 QRSd 101 QRS 4 QT 434 T 83 QTc 430 Conclusion Sinus bradycardia...rate< 60 Atrial premature complex...SV complex w/ short R-R interval
[2024-08-10 12:40] LABS: Abs Immature Grans 0.02 10^3/uL (0.0-0.06); Absolute Basophil Count 0.06 10^3/uL (0.0-0.2); Absolute Eosinophil Count 0.24 10^3/uL (0.0-0.7); Absolute Lymphocyte Count 1.82 10^3/uL (1.2-3.4); Absolute Neutrophil Count 2.98 10^3/uL (1.2-6.7); Basophils % 1.1 %; Eosinophils % 4.3 %; HCT 43.8 % (40.0-50.0); HGB 14.6 g/dL (13.5-17.5); Immature Grans % 0.4 %; MCH 29.3 pg (27.0-33.0); MCHC 33.3 % (32.0-36.0); MCV 88 fL (80-95); MPV 9.1 fL (8.0-11.0); Monocytes % 7.2 %; Platelet Count 208 10^3/uL (130-400); RBC 4.99 10^6/uL (4.36-5.78); RDW 12.9 % (11.8-14.1); RDW-SD 41.2 fL; WBC 5.52 10^3/uL (4.4-10.8)
[2024-08-10] MEDS: Aspirin 81 MG CHEW 324 MG CH (12:42)
[2024-08-10 13:02] LABS: ALT 28 U/L (16-63); AST 27 U/L (15-37); Albumin 3.7 g/dL (3.4-5.0); Alkaline Phosphatase 94 U/L (46-116); Anion Gap 8.7 mmol/L (3-11); BUN 13 mg/dL (7-18); Bilirubin, Total 0.53 mg/dL (0.2-1.0); CO2 29.3 mmol/L (21.0-32.0); Calcium 8.8 mg/dL (8.5-10.1); Chloride 106 mmol/L (98-107); Estimated GFR 86.16 (mL/min/1.73m2); Glucose 128 mg/dL (74-106); Potassium 3.6 mmol/L (3.5-5.1); Sodium 144 mmol/L (136-145); Total Protein 7.5 g/dL (6.4-8.2)
[2024-08-10 13:04] LABS: Lipase 29 U/L (<78); Troponin I 50 ng/L (<or=76)
[2024-08-10 13:27] LABS: D-Dimer 688 ng/mlFEU (<500)
[2024-08-10 13:42] LABS: Troponin I 7 ng/L (<or=76)
--- NOTE | 2024-08-10 13:52 | DI.RAD_ITS ---
Exam(s) XR CHEST 2V PA LATERAL EXAM: XR CHEST 2V PA LATERAL CLINICAL HISTORY: chest pain TECHNIQUE: 2D digital imaging was performed of the chest. Two images were obtained. PA and lateral views were obtained. COMPARISON: CR XR CHEST 2V PA LATERAL from 12/20/2020 FINDINGS: MEDIASTINUM: Normal. HEART: Normal. PULMONARY VASCULATURE: Normal. LUNGS: Clear. PLEURAL SPACE: No pleural effusion or pneumothorax. BONE:Within normal limits for the patient's age. OTHER FINDINGS:Normal. IMPRESSION: No acute pulmonary findings. DATA REPOSITORY: RADIATION DOSE DELIVERED:
--- NOTE | 2024-08-10 15:01 | ED.GENADUL_ITS ---
Discharge Plan Disposition Patient Disposition: Against Medical Advice Condition: Serious Discharge Details Clinical Impression: Chest pain Primary Care Provider: Lorraine Watson ED Provider: Adela Echevarria Home Meds and New Rx's Prescriptions: No Action albuterol sulfate 90 mcg/actuation aerosol powdr breath activated 2 inh inhalation Q6H PRN fluticasone propionate [Flovent Diskus] 100 mcg/actuation blister with device 1 inh inhalation Q12H Patient Comments: pt does not know strength pantoprazole [Protonix] 40 mg tablet,delayed release (DR/EC) 40 mg PO DAILY risperidone 3 mg tablet 3 mg PO DAILY Incruse Ellipta 62.5 mcg/actuation blister with device 1 inh inhalation DAILY lisinopril 2.5 mg tablet 2.5 mg PO DAILY atorvastatin 40 mg tablet 40 mg PO DAILY fluoxetine [Prozac] 20 MG capsule 60 mg PO DAILY simvastatin 10 mg Tablet 10 mg PO DAILY melatonin 5 mg Tablet 5 mg PO HS aspirin [Adult Low Dose Aspirin] 81 mg tablet,delayed release (DR/EC) 81 mg PO DAILY lisinopril 5 mg tablet 5 mg PO DAILY mirtazapine 15 mg tablet,disintegrating 15 mg PO QHS quetiapine [Seroquel XR] 150 mg tablet extended release 24 hr 150 mg PO QHS spironolactone 25 mg tablet 25 mg PO DAILY HPI General Date/Time Provider Initiated Documentation: 08/10/24 12:15 . HPI Narrative: This 59-year-old male presents with report of chest pain which started upon awakening this morning. Patient has a history of COPD, cardiomyopathy, [place] [facility] Patient's been taking all of his medications as prescribed, he continues to smoke. Does have a history of hyperlipidemia and hypertension. States he felt fine yesterday. Missed his appointment with cardiology secondary to lack of transportation at [facility] [place]. At this time patient is pain-free he states his pain this morning started to eat while he was laying in bed and lasted for approximately an hour and a half. He has not had pain since that time. He did take a baby aspirin this morning per patient. He denies any calf pain or swelling, recent flights patient did have. A cardiac catheterization approximately 3 weeks ago. He states that this was through his right wrist and the wound is healing well. He has not had chest pain since the event and he was told that his cardiac catheterization was reassuring. Patient does not report having had any stents. Related Data Home Medications ?Medication ?Instructions ?Recorded ?Confirmed fluoxetine 20 mg capsule (Prozac) 60 mg PO DAILY 04/26/14 08/10/24 melatonin 5 mg tablet 5 mg PO HS 04/17/19 08/10/24 simvastatin 10 mg tablet 10 mg PO DAILY 04/17/19 08/10/24 pantoprazole 40 mg tablet,delayed 40 mg PO DAILY 05/16/19 08/10/24 release (Protonix) albuterol sulfate 90 mcg/actuation 2 inh inhalation Q6H PRN 01/30/21 08/10/24 breath activated powder inhaler fluticasone propionate 100 1 inh inhalation Q12H 01/30/21 08/10/24 mcg/actuation blister powder for inhalation (Flovent Diskus) atorvastatin 40 mg tablet 40 mg PO DAILY 01/08/22 08/10/24 lisinopril 2.5 mg tablet 2.5 mg PO DAILY 01/08/22 08/10/24 risperidone 3 mg tablet 3 mg PO DAILY 01/08/22 08/10/24 umeclidinium 62.5 mcg/actuation 1 inh inhalation DAILY 01/08/22 08/10/24 blister powder for inhalation (Incruse Ellipta) aspirin 81 mg tablet,delayed 81 mg PO DAILY 08/10/24 08/10/24 release (Adult Low Dose Aspirin) lisinopril 5 mg tablet 5 mg PO DAILY 08/10/24 08/10/24 mirtazapine 15 mg disintegrating 15 mg PO QHS 08/10/24 08/10/24 tablet quetiapine 150 mg tablet,extended 150 mg PO QHS 08/10/24 08/10/24 release 24 hr (Seroquel XR) spironolactone 25 mg tablet 25 mg PO DAILY 08/10/24 08/10/24 Allergies Allergy/AdvReac Type Severity Reaction Status Date / Time No Known Allergies Allergy Verified 08/10/24 12:05 General Stated Complaint: Chest Pain SHAY: 3 Exam Narrative Exam Narrative: Alert, oriented, 59-year-old male in no acute distress without reproducible pain and no rashes or lesions. Lungs with scant wheezes throughout, no respiratory distress, no calf sling or tenderness appreciated, distal pulses intact, no abdominal tenderness, no abdominal bruit or pulsatile mass. No murmur or rub. Course Vital Signs Vital signs: Vital Signs Temperature 36.4 C 08/10/24 12:00 Pulse 57 L 08/10/24 12:00 Respiratory Rate 22 08/10/24 12:00 Blood Pressure 129/74 08/10/24 12:00 Pulse Oximetry 95 08/10/24 12:00 Temperature 36.4 C 08/10/24 12:00 Temperature Source Oral 08/10/24 12:00 Pulse 55 L 08/10/24 13:31 Pulse 55 L 08/10/24 13:31 Respiratory Rate 17 08/10/24 13:31 Respiratory Effort Normal 08/10/24 12:33 Respiratory Depth Normal 08/10/24 12:33 Respiratory Pattern Normal 08/10/24 12:33 Blood Pressure 110/56 L 08/10/24 13:31 Blood Pressure Mean 72 08/10/24 13:31 Blood Pressure Position Sitting 08/10/24 12:00 Pulse Oximetry 94 08/10/24 13:20 Oxygen Delivery Method Room Air 08/10/24 12:00 Oxygen Flow Rate 0 08/10/24 12:00 Pain Level 0 08/10/24 12:00 Lab/Test Results Lab/Test Results: Laboratory Tests Range/Units 08/10/24 08/10/24 12:25 13:12 WBC (4.4-10.8) 10^3/uL 5.52 RBC (4.36-5.78) 10^6/uL 4.99 Hgb (13.5-17.5) g/dL 14.6 Hct (40.0-50.0) % 43.8 MCV (80-95) fL 88 MCH (27.0-33.0) pg 29.3 MCHC (32.0-36.0) % 33.3 RDW (11.8-14.1) % 12.9 Plt Count (130-400) 10^3/uL 208 MPV (8.0-11.0) fL 9.1 Immature Gran % % 0.4 Neutrophils % % 54.0 Lymphocytes % % 33.0 Monocytes % % 7.2 Eosinophils % % 4.3 Basophils % % 1.1 Nucleated RBC % (0.0-0.3) % 0.0 Absolute Neutrophils (1.2-6.7) 10^3/uL 2.98 Absolute Lymphocytes (1.2-3.4) 10^3/uL 1.82 Absolute Monocytes (0.1-0.8) 10^3/uL 0.40 Absolute Eosinophils (0.0-0.7) 10^3/uL 0.24 Absolute Basophils (0.0-0.2) 10^3/uL 0.06 D-Dimer (<500) ng/mlFEU 688 H Sodium (136-145) mmol/L 144 Potassium (3.5-5.1) mmol/L 3.6 Chloride (98-107) mmol/L 106 Carbon Dioxide (21.0-32.0) mmol/L 29.3 Anion Gap (3-11) mmol/L 8.7 BUN (7-18) mg/dL 13 Creatinine (0.70-1.30) mg/dL 1.0 Est GFR (CKD-EPI 2020) (mL/min/1.73m2) 86.16 Glucose (74-106) mg/dL 128 H Calcium (8.5-10.1) mg/dL 8.8 Total Bilirubin (0.2-1.0) mg/dL 0.53 AST (15-37) U/L 27 ALT (16-63) U/L 28 Alkaline Phosphatase (46-116) U/L 94 Troponin I (<or=76) ng/L 50 7 Total Protein (6.4-8.2) g/dL 7.5 Albumin (3.4-5.0) g/dL 3.7 Lipase (<78) U/L 29 Medical Decision Making 59-year-old male with past medical history of recent non-ST elevation [place] for which she was hospitalized [place] [facility] and had a cardiac catheterization which showed 20% stenosis in his LAD without any other significant findings per clark driver, Dr. Mason at [facility]. I discussed the case with her and she states from a cardiac standpoint the patient does not require admission. My recommendation giving slightly elevated D-dimer is to perform CTA PE of patient's chest. Patient is very upset at time of reassessment, he is standing at the door and dressed with his IV in place. When asked regarding his decision to leave he states that he has not been given water and that his monitor continues to be. Patient was informed that we are not able to exclude other causes of his pain and he still is requesting discharge. Patient is very agitated and begins to walk out of the emergency department, he was asked to stop as he has an IV in place and did turn around and allowed us to remove the IV from his right arm. He is aware that he is leaving AGAINST MEDICAL ADVICE but was not asked to sign an AMA form secondary to acute agitation. Patient has been alert, oriented, of decisional capacity throughout the entirety of this assessment. I was unable to complete his assessment secondary to agitation and unwillingness to continue with exam. Quality:SDOH Health Related Social Needs: No Data to Display PFSH All Active Problems (Updated 08/10/24 @ 15:06 by MARTINEZ Allison) Chest pain (Acute) Preop testing (Acute) Intraabdominal fluid collection (Acute) Perforated gastric ulcer (Acute) Pulmonary hypertension (Acute) mild per echo in 2016 COPD (chronic obstructive pulmonary disease) (Acute) Non-oxygen dependent Cardiomyopathy (Acute) EF 55% per echo in 11/2016, 41% per MPI in 08/2016. Respiratory distress (Acute) Epigastric pain (Acute) Abdominal pain (Acute) Screening for colorectal cancer (Acute) Medical History Bradycardia Depression followed by [facility] Gastric ulcer Hearing loss in right ear History of suicide attempt HTN (hypertension) Hyperlipidemia Insomnia Nightmares Obesity Prediabetes Subungual hematoma Vitamin D deficiency Surgical History Colonoscopy - MAC (12/23/16) History of ear surgery History of esophagogastroduodenoscopy (EGD) (~02/21/21) Family History Father Stroke Mother Liver cancer Social History Smoking/Tobacco Use Status: Current every day Tobacco Type: cigarettes Years smoked: 40 Smoking risk assessment performed?: Yes Alcohol Intake: never Drug use: Never Substance use type: does not use Housing: house Current gender identity: male Do you feel safe at home: Yes Do you feel safe in your relationship?: Yes
== END 2024-08-10 14:35 | disposition left against medical advice (07) ==
PROVIDERS: Emergency Provider Physician Assistant; PCP Nurse Practitioner Family
DX: R07.9 Chest pain, unspecified (principal); I10 Essential (primary) hypertension; E78.5 Hyperlipidemia, unspecified; I25.10 Atherosclerotic heart disease of native coronary artery without angina pectoris; I25.2 Old myocardial infarction; I42.9 Cardiomyopathy, unspecified; J44.9 Chronic obstructive pulmonary disease, unspecified; F17.210 Nicotine dependence, cigarettes, uncomplicated; Z79.82 Long term (current) use of aspirin; Z53.29 Procedure and treatment not carried out because of patient's decision for other reasons; R45.1 Restlessness and agitation
CPT/HCPCS: 36415; 80053; 83690; 93005; 99285; 71046; 84484; 85025; 85379; 93010; 99284

== ENCOUNTER 2024-08-22 10:14 | Outpatient (CLI) | payer MEDICARE, SELFPAY ==
--- NOTE | 2024-08-22 10:00 | RT.EKG_ITS ---
APPROVED REPORT Exam: Resting ECG Reason for Exam: chest pain Patient Location: O HR:63 bpm ECG Measurements Heart Rate 63 AXIS WI 143 P 1 QRSd 106 QRS -15 QT 412 T 93 QTc 422 Conclusion Sinus rhythm...normal P axis, V-rate 50- 99 Nonspecific T abnormalities, lateral leads...T <-0.10mV, I aVL V5 V6
== END 2024-08-22 10:15 | disposition home or self-care (01) ==
LOC: DI.CARD 10:15
PROVIDERS: PCP Nurse Practitioner Family; Visit Provider Internal Medicine Cardiovascular Disease
DX: I42.9 Cardiomyopathy, unspecified
CPT/HCPCS: 93010

== ENCOUNTER → 2024-08-22 10:44 | Outpatient (BNVA) | payer MEDICARE, SELFPAY | PROVIDERS: PCP Nurse Practitioner Family; Referring Provider Nurse Practitioner Family; Visit Provider Internal Medicine Cardiovascular Disease | DX: I48.0 Paroxysmal atrial fibrillation (principal); R94.31 Abnormal electrocardiogram [ECG] [EKG]; I42.9 Cardiomyopathy, unspecified | CPT/HCPCS: 93005; 99214 ==

== ENCOUNTER 2024-09-01 01:14 | Outpatient (CLI) | payer MEDICARE, SELFPAY ==
[2024-09-01] MEDS: Inhaler, Assist Device 1 EACH MC (16:09)
[2024-09-01] MEDS: Levalbuterol HFA 15 GM INH 4 PUFF IH (16:09)
--- NOTE | 2024-09-05 17:55 | W.PFT ---
Date of service: 09/01/24 Time of Service: 14:51 Pulmonary Function Test Result Indications: Dyspnea Interpretation Spirometry: There is moderate airflow limitation. There is a significant bronchodilator response. Lung Volumes: There is hyperinflation and air trapping Diffusion Capacity: Normal diffusion Airway Pressure: Increased airways resistance Impression Moderate airflow obstruction with air trapping and a significant bronchodilator response. Clinical Correlation therefore is recommended.
== END 2024-09-01 01:15 | disposition home or self-care (01) ==
LOC: RT 01:14
PROVIDERS: PCP Nurse Practitioner Family; Visit Provider Student in an Organized Health Care Education/Training Program
DX: R06.00 Dyspnea, unspecified (principal)
CPT/HCPCS: 94060; 94726; 94729

== ENCOUNTER → 2025-01-29 12:44 | Outpatient (BNVA) | payer MEDICARE, SELFPAY | PROVIDERS: PCP Nurse Practitioner Family; Referring Provider Nurse Practitioner Family; Visit Provider Physician Assistant Surgical | DX: J45.909 Unspecified asthma, uncomplicated (principal); J44.9 Chronic obstructive pulmonary disease, unspecified; F17.210 Nicotine dependence, cigarettes, uncomplicated | CPT/HCPCS: 99215; G0296 ==

== ENCOUNTER 2025-02-20 02:32 | Outpatient (CLI) | payer MEDICARE, SELFPAY ==
--- NOTE | 2025-02-20 08:10 | DI.CTLCSR_ITS ---
Exam(s) CT CHEST LUNG CANCER SCREEN EXAM: CT CHEST LUNG CANCER SCREEN CLINICAL HISTORY: Screening for lung cancer,cigarette nicotine dependence,F17.210 TECHNIQUE: Imaging Protocol: Axial computed tomography images with coronal and sagittal reformatted images were created and reviewed. Low dose screening protocol. COMPARISON: CT CT CHEST LUNG CANCER SCREEN from 05/27/2023 CR XR CHEST 2V PA LATERAL from 08/10/2024 FINDINGS: Tracheobronchial tree: No bronchiectasis or mucus plugging. Mediastinum and Sherry: No dominant adenopathy or fluid collection. Pulmonary parenchyma: No consolidation or dominant measurable mass. Minimal emphysematous changes. No significant interstitial changes. Lung Nodules: No suspicious nodules. Pleura: No effusion. No pneumothorax. Heart: The heart is not dilated. No coronary artery calcifications are seen. No pericardial effusion. Aorta: Thoracic aorta non-dilated. Upper abdomen: Unremarkable. Bones: Slight compression of the T9 vertebral body, stable. Degenerative changes of the lower thoracic spine. Soft Tissues: mild symmetric bilateral gynecomastia. IMPRESSION: No suspicious pulmonary nodules. Lung RADS Cat 1 - Negative: No nodules and definitely benign nodules Lung-RADS 1.0 CATEGORIES: Category 0 - Prior chest CT exam(s) being located for comparison. Category 1 - Annual screening in 12 months. No nodules or definitely benign nodules. Category 2 - Annual screening in 12 months. Benign appearance. Nodules with low likelihood of becoming active cancer. Category 3 - 6-month follow-up. Probably benign. Short-term follow-up suggested. Nodules with low likelihood of becoming active cancer. Category 4A - 3-month follow-up and CT/PET if >8 mm in size. Suspicious finding. Findings which require additional testing. Category 4B - Findings which require additional testing and tissue sampling. Category 4X - Category 3 or 4 nodules with additional features or imaging findings that increases the suspicion of malignancy. Modifier S- Potentially clinically significant findings (non lung cancer) RADIATION DOSE DELIVERED: !Error Total DLP DATA REPOSITORY: All CT scans at this facility are submitted to the National Radiology Data Registry (NRDR) Dose Index Registry (DIR) with the [employer] (ACR). RADIATION OPTIMIZATION: All CT scans at this facility use at least one of these dose optimization techniques: automated exposure control; mA and/or kV adjustment per patient size (includes targeted exams where dose is matched to clinical indication); or iterative reconstruction.
== END 2025-02-20 02:52 ==
PROVIDERS: PCP Nurse Practitioner Family; Visit Provider Physician Assistant Surgical
DX: Z12.2 Encounter for screening for malignant neoplasm of respiratory organs (principal); F17.210 Nicotine dependence, cigarettes, uncomplicated
CPT/HCPCS: 71271

== ENCOUNTER → 2025-05-02 13:48 | Outpatient (BNVA) | payer MEDICARE, SELFPAY | PROVIDERS: PCP Nurse Practitioner Family; Referring Provider Nurse Practitioner Family; Visit Provider Physician Assistant Surgical | DX: J45.909 Unspecified asthma, uncomplicated (principal); J44.9 Chronic obstructive pulmonary disease, unspecified; F17.210 Nicotine dependence, cigarettes, uncomplicated | CPT/HCPCS: 99214 ==

== ENCOUNTER 2025-08-15 10:49 | Emergency (ER) | payer MEDICARE, SELFPAY ==
[2025-08-15 10:55] VITALS: BP 128/79; PULSE 70; RESP 20; TEMP 36.3; O2SAT 93
--- NOTE | 2025-08-15 11:15 | RT.EKG_ITS ---
APPROVED REPORT Exam: Resting ECG Reason for Exam: afib Patient Location: E HR:68 bpm ECG Measurements Heart Rate 68 AXIS VA 165 P 52 QRSd 101 QRS -5 QT 401 T 126 QTc 419 Conclusion Sinus rhythm...normal P axis, V-rate 60- 99 Atrial premature complex...SV complex w/ short R-R interval Nonspecific T abnormalities, lateral leads...T <-0.10mV, I aVL V5 V6
--- NOTE | 2025-08-15 11:15 | DI.RAD_ITS ---
Exam(s) XR CHEST 2V PA LATERAL EXAM: XR CHEST 2V PA LATERAL CLINICAL HISTORY: wheezing. TECHNIQUE: 2D digital imaging was performed. COMPARISON: CR XR CHEST 2V PA LATERAL from 08/10/2024 FINDINGS: 2 views: Heart size is normal. The mediastinum is not widened. Right lung is clear. There is slightly increased markings in the left infrahilar region, not evident on 08/10/2024. Possibly represents mild infiltrate. IMPRESSION: Increased markings left lower lobe and lingular segment. Possible mild infiltrate at this level. There are no pleural effusions. DATA REPOSITORY: RADIATION DOSE DELIVERED:
[2025-08-15] MEDS: Albuterol/Ipratropium 3 ML UPD VIAL UPD (11:27)
[2025-08-15] MEDS: Budesonide 0.5 MG/2 ML UPD VIAL UPD (11:27)
[2025-08-15 11:43] LABS: Abs Immature Grans 0.01 10^3/uL (0.0-0.06); HCT 46.8 % (40.0-50.0); HGB 15.1 g/dL (13.5-17.5); Immature Grans % 0.3 %; MCH 28.4 pg (27.0-33.0); MCHC 32.3 % (32.0-36.0); MCV 88 fL (80-95); MPV 9.4 fL (8.0-11.0); Platelet Count 198 10^3/uL (130-400); RBC 5.32 10^6/uL (4.36-5.78); RDW 13.5 % (11.8-14.1); RDW-SD 43.7 fL; WBC 3.89 10^3/uL (4.4-10.8)
--- NOTE | 2025-08-15 11:50 | NUR.NOTE ---
/Carrie/ Nursing Note:
[2025-08-15 12:00] LABS: ALT 39 U/L (10-49); AST 33 U/L (<34); Albumin 4.6 g/dL (3.2-5.0); Alkaline Phosphatase 94 U/L (46-116); Anion Gap 6.6 mmol/L (3-11); BUN 19 mg/dL (9-23); Bilirubin, Total 0.6 mg/dL (0.2-1.2); CO2 29.4 mmol/L (20.0-31.0); Calcium 9.9 mg/dL (8.3-10.6); Chloride 104 mmol/L (98-107); Glucose 173 mg/dL (74-106); Potassium 4.0 mmol/L (3.5-5.1); Sodium 140 mmol/L (136-145); Total Protein 7.9 g/dL (5.7-8.2)
[2025-08-15 12:02] LABS: TSH (W/Ref FT4) 1.24 uIU/mL (0.55-4.78)
[2025-08-15] MEDS: Doxycycline Hyclate 100 MG CAP PO (12:35)
[2025-08-15 12:40] LABS: COVID-19 PCR Negative (Negative); RSV PCR Negative (Negative)
[2025-08-15] MEDS: Budesonide/Formoterol 160/4.5 6 GM 60 PUFF INH IH (12:52)
[2025-08-15] MEDS: Cefuroxime 500 MG TAB PO (12:53)
[2025-08-15] MEDS: Ipratropium/Albuterol 4 GM 120 PUFF INH IH (12:53)
[2025-08-15 13:11] LABS: Glucose Negative (Negative)
[2025-08-15 13:23] LABS: Cannabinoids THC Negative (Negative)
--- NOTE | 2025-08-15 14:37 | W.ED.GENAD ---
Discharge Plan Disposition Patient Disposition: Home Condition: Stable Discharge Details Clinical Impression: Pneumonia, Depression, COPD (chronic obstructive pulmonary disease) Primary Care Provider: Lorraine Watson ED Provider: Adela Echevarria Home Meds and New Rx's Prescriptions: New doxycycline hyclate 100 mg capsule 100 mg PO BID Qty: 10 0RF cefpodoxime 200 mg tablet 200 mg PO BID Qty: 10 0RF Rx Instructions: must administer with a meal/food Continued atorvastatin 40 mg tablet 40 mg PO DAILY Qty: 90 3RF lisinopril 5 mg tablet 5 mg PO DAILY Qty: 90 3RF spironolactone 25 mg tablet 25 mg PO DAILY Qty: 90 3RF apixaban 5 mg tablet 5 mg PO BID Qty: 60 12RF metoprolol succinate 25 mg tablet extended release 24 hr 25 mg PO DAILY Qty: 90 3RF mirtazapine 15 mg tablet 15 mg PO DAILY Patient Comments: Not on [place] list budesonide 0.5 mg/2 mL suspension for nebulization 0.5 mg inhalation BID Qty: 60 12RF ipratropium-albuterol 0.5 mg-3 mg(2.5 mg base)/3 mL solution for nebulization 3 ml inhalation Q4H PRN (Reason: wheezing) Qty: 180 12RF fluoxetine [Prozac] 20 MG capsule 60 mg PO DAILY Patient Comments: Not on [place] list aspirin [Adult Low Dose Aspirin] 81 mg tablet,delayed release (DR/EC) 81 mg PO DAILY Patient Comments: Not on [place] list quetiapine 200 mg tablet 600 mg PO HS Discharge Instructions Instructions: Pneumonia, Adult (DC) Additional Instructions: Take the antibiotic as prescribed for pneumonia Please continue on all your prescribed medications and be reevaluated should you have new or worsening complaints You have been medically cleared for the care bed at this time Stand Alone Forms: Portal Information Discharge Data Discharge Date/Time-TO BE ENTERED AT DEPARTURE: 08/15/25 13:35 HPI General Date/Time Provider Initiated Documentation: 08/15/25 10:52. HPI Narrative: 60-year-old male with history of COPD asthma, depression, cardiomyopathy, pulmonary hypertension paroxysmal atrial fibrillation on metoprolol self discontinuing, Eliquis, presents with worsening depression secondary to psychosocial factors. Patient lost his disability status and does not have any and counseling or access to food. He feels very depressed and has had some intermittent suicidal ideation. His care team at [facility] would like him placed in a care bed patient denies any acute complaints aside from cough. He denies any chest pain or shortness of breath. He continues to smoke denies any additional illicit substance abuse or attempts to harm self. Was not currently have a plan to harm himself. Denies auditory visual hallucinations Related Data Home Medications ?Medication ?Instructions ?Recorded ?Confirmed fluoxetine 20 mg capsule (Prozac) 60 mg PO DAILY 04/26/14 05/02/25 aspirin 81 mg tablet,delayed 81 mg PO DAILY 08/10/24 08/15/25 release (Adult Low Dose Aspirin) apixaban 5 mg tablet 5 mg PO BID #60 tabs 08/22/24 08/15/25 atorvastatin 40 mg tablet 40 mg PO DAILY #90 tabs 08/22/24 08/15/25 lisinopril 5 mg tablet 5 mg PO DAILY #90 tabs 08/22/24 08/15/25 metoprolol succinate 25 mg 25 mg PO DAILY #90 tabs 08/22/24 08/15/25 tablet,extended release 24 hr spironolactone 25 mg tablet 25 mg PO DAILY #90 tabs 08/22/24 08/15/25 mirtazapine 15 mg tablet 15 mg PO DAILY 09/06/24 05/02/25 budesonide 0.5 mg/2 mL suspension 0.5 mg (2 mL) inhalation BID #60 mL 01/31/25 08/15/25 for nebulization ipratropium 0.5 mg-albuterol 3 mg 3 ml inhalation Q4H PRN wheezing 01/31/25 08/15/25 (2.5 mg base)/3 mL nebulization #180 mL soln cefpodoxime 200 mg tablet 200 mg PO BID #10 tabs 08/15/25 doxycycline hyclate 100 mg capsule 100 mg PO BID #10 caps 08/15/25 quetiapine 200 mg tablet 600 mg PO HS 08/15/25 08/15/25 Previous Rx's ?Medication ?Instructions ?Recorded apixaban 5 mg tablet 5 mg PO BID #60 tabs 08/22/24 atorvastatin 40 mg tablet 40 mg PO DAILY #90 tabs 08/22/24 lisinopril 5 mg tablet 5 mg PO DAILY #90 tabs 08/22/24 metoprolol succinate 25 mg 25 mg PO DAILY #90 tabs 08/22/24 tablet,extended release 24 hr spironolactone 25 mg tablet 25 mg PO DAILY #90 tabs 08/22/24 budesonide 0.5 mg/2 mL suspension 0.5 mg (2 mL) inhalation BID #60 mL 01/31/25 for nebulization ipratropium 0.5 mg-albuterol 3 mg 3 ml inhalation Q4H PRN wheezing 01/31/25 (2.5 mg base)/3 mL nebulization #180 mL soln cefpodoxime 200 mg tablet 200 mg PO BID #10 tabs 08/15/25 doxycycline hyclate 100 mg capsule 100 mg PO BID #10 caps 08/15/25 Allergies Allergy/AdvReac Type Severity Reaction Status Date / Time No Known Allergies Allergy Verified 08/15/25 11:00 General Stated Complaint: PsychEval SHAY: 2 Exam Narrative Exam Narrative: Alert and oriented 60-year-old male, answering questions appropriately, disheveled, cardiac rate rhythm regular no abdominal tenderness, pupils equal round reactive to light and accommodation, feels depressed and anxious intermittent suicidality will not discuss plan lungs with wheezes, no respiratory distress, 1+ edema to bilateral lower extremities Course Vital Signs Vital signs: Vital Signs Temperature 36.3 C L 08/15/25 10:55 Pulse 70 08/15/25 10:55 Respiratory Rate 20 08/15/25 10:55 Blood Pressure 128/79 08/15/25 10:55 Pulse Oximetry 93 08/15/25 10:55 Temperature 36.3 C L 08/15/25 10:55 Pulse 70 08/15/25 10:55 Respiratory Rate 20 08/15/25 10:55 Blood Pressure 128/79 08/15/25 10:55 Blood Pressure Position Sitting 08/15/25 10:55 Pulse Oximetry 93 08/15/25 10:55 Oxygen Delivery Method Room Air 08/15/25 10:55 Oxygen Flow Rate 0 08/15/25 10:55 Lab/Test Results Lab/Test Results: Laboratory Tests Range/Units 08/15/25 08/15/25 08/15/25 11:27 11:37 13:00 WBC (4.4-10.8) 10^3/uL 3.89 L RBC (4.36-5.78) 10^6/uL 5.32 Hgb (13.5-17.5) g/dL 15.1 Hct (40.0-50.0) % 46.8 MCV (80-95) fL 88 MCH (27.0-33.0) pg 28.4 MCHC (32.0-36.0) % 32.3 RDW (11.8-14.1) % 13.5 Plt Count (130-400) 10^3/uL 198 MPV (8.0-11.0) fL 9.4 Immature Gran % % 0.3 Neutrophils % % 42.9 Lymphocytes % % 36.2 Monocytes % % 11.3 Eosinophils % % 8.0 Basophils % % 1.3 Nucleated RBC % (0.0-0.3) % 0.0 Absolute Neutrophils (1.2-6.7) 10^3/uL 1.67 Absolute Lymphocytes (1.2-3.4) 10^3/uL 1.41 Absolute Monocytes (0.1-0.8) 10^3/uL 0.44 Absolute Eosinophils (0.0-0.7) 10^3/uL 0.31 Absolute Basophils (0.0-0.2) 10^3/uL 0.05 Sodium (136-145) mmol/L 140 Potassium (3.5-5.1) mmol/L 4.0 Chloride (98-107) mmol/L 104 Carbon Dioxide (20.0-31.0) mmol/L 29.4 Anion Gap (3-11) mmol/L 6.6 BUN (9-23) mg/dL 19 Creatinine (0.73-1.18) mg/dL 0.98 Est GFR (CKD-EPI 2020) (mL/min/1.73m2) 77.67 Glucose (74-106) mg/dL 173 H Calcium (8.3-10.6) mg/dL 9.9 Total Bilirubin (0.2-1.2) mg/dL 0.6 AST (<34) U/L 33 ALT (10-49) U/L 39 Alkaline Phosphatase (46-116) U/L 94 Total Protein (5.7-8.2) g/dL 7.9 Albumin (3.2-5.0) g/dL 4.6 TSH (0.55-4.78) uIU/mL 1.24 Urine Color (Yellow) Yellow Urine Clarity (Clear) Clear Urine pH (5-8) 5.5 Ur Specific [place] (1.005-1.025) 1.025 Urine Protein (Neg-Trace) mg/dL Negative Urine Ketones (Negative) mg/dL Trace H Urine Blood (Negative) Negative Urine Nitrite (Negative) Negative Urine Bilirubin (Negative) Negative Urine Urobilinogen (Up to 0.2) mg/dL 1.0 H Ur Leukocyte Esterase (Negative) Negative Urine Glucose (Negative) mg/dL Negative Urine Opiates Screen (Negative) Negative Urine Methadone Screen (Negative) Negative Ur Barbiturates Screen (Negative) Negative Ur Tricyclics Screen (Negative) Positive A Ur Amphetamines Screen (Negative) Negative U Benzodiazepines Scrn (Negative) Negative Urine Cocaine Screen (Negative) Negative U Cannabinoids Screen (Negative) Negative COVID-19 Source Nasopharynx SARS-CoV-2 (PCR) (Negative) Negative Influenza Type A (PCR) (Negative) Negative Influenza Type B (PCR) (Negative) Negative RSV (PCR) (Negative) Negative Medical Decision Making Results white blood cell count, leukopenia at 3.9 minor labs do not show significant acute abnormality flu COVID RSV negative, chest x-ray shows left lower lobe infiltrate Assessment and plan: Chest x-ray shows left lower lobe infiltrate in this patient with COPD continues to smoke tobacco, I will treat with cefpodoxime and doxycycline. Patient is stable for discharge to care bed at this time. He feels very comfortable with the plan for care bed placement and does not feel like he would benefit from psychiatric admission for intermittent suicidality. He largely feels like his symptoms are situational in nature. Vitals are stable answering questions appropriately. Medically cleared for care bed placement. As a side note it sounds like patient self discontinued Eliquis. She takes for paroxysmal atrial fibrillation secondary to desire to take Motrin for intermittent headaches he denies any acute headache is asymptomatic at this regard. He is not currently in atrial fibrillation he does understand the risk associated with self discontinuing Eliquis CVA or TIA. [facility] All Active Problems (Updated 08/15/25 @ 12:58 by MARTINEZ Allison) COPD (chronic obstructive pulmonary disease) (Chronic) Depression (Chronic) Pneumonia (Acute) Asthma (Chronic) Paroxysmal atrial fibrillation (Acute) Preop testing (Acute) Intraabdominal fluid collection (Acute) Perforated gastric ulcer (Acute) Pulmonary hypertension (Acute) mild per echo in 2017 COPD (chronic obstructive pulmonary disease) (Acute) Non-oxygen dependent Cardiomyopathy (Acute) EF 55% per echo in 11/2016, 41% per MPI in 08/2016.Last EF at [facility] 07/18/24 35-40% RH Respiratory distress (Acute) Epigastric pain (Acute) Abdominal pain (Acute) Screening for colorectal cancer (Acute) Medical History (Updated 08/15/25 @ 12:58 by MARTINEZ Allison) HTN (hypertension) Bradycardia Prediabetes Gastric ulcer Subungual hematoma Nightmares History of suicide attempt Insomnia Hearing loss in right ear Vitamin D deficiency Obesity Hyperlipidemia Depression followed by [facility] Surgical History History of esophagogastroduodenoscopy (EGD) (~02/21/21) History of ear surgery Colonoscopy - MAC (12/23/16) Family History Father Stroke Mother Liver cancer Social History Smoking/Tobacco Use Status: Current every day Tobacco Type: cigarettes Years smoked: 40 Smoking risk assessment performed?: Yes Alcohol Intake: never Drug use: Never Substance use type: does not use Housing: house 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
== END 2025-08-15 13:35 | disposition home or self-care (01) ==
PROVIDERS: Emergency Provider Physician Assistant; PCP Nurse Practitioner Family
DX: J18.9 Pneumonia, unspecified organism (principal); F32.A Depression, unspecified; J44.9 Chronic obstructive pulmonary disease, unspecified; D72.819 Decreased white blood cell count, unspecified
CPT/HCPCS: 99284; 99285; 94640; 36415; 80053; 80307; 87637; 93005; 71046; 81003; 84443; 85025; 93010; J3490; J7620; J7626